=== PATIENT | male | born 1970 | race Caucasian/White ===

== ENCOUNTER → 2018-02-12 12:34 | Outpatient (CLI) | payer BC, SELFPAY ==
--- NOTE | 2018-02-12 12:45 | DI.REPORT_ITS ---
SYMPTOMS/DIAGNOSIS: FATIGUE, COUGH AFTER INHALATION OF BLEACH, R53.83, T59.91XA PA AND LATERAL CHEST: The heart is normal in size. The lungs are clear. The mediastinal structures and pleura appear intact. CONCLUSION: Normal chest.
== END ==
PROVIDERS: PCP Family Medicine; Visit Provider Family Medicine
DX: R53.83 Other fatigue (principal); T59.91XA Toxic effect of unspecified gases, fumes and vapors, accidental (unintentional), initial encounter; R05 Cough
CPT/HCPCS: 71046

== ENCOUNTER 2018-12-01 00:24 | Emergency (ER) | payer BC, SELFPAY ==
[2018-12-01] VITALS (14 sets, daily range): BP systolic 120–127; BP diastolic 69–87; PULSE 60–76; RESP 13–24; TEMP 36.4–36.5; O2SAT 96–100
--- NOTE | 2018-12-01 00:31 | ED.GENADUL_ITS ---
Discharge Plan Disposition Patient Disposition: HOME Condition: Improving Discharge Details Chief Complaint: AMS/LOC Clinical Impression: Migraines Primary Care Provider: Ebenezer Rodríguez ED Provider: Lamine Hernandez Home Meds and New Rx's Prescriptions: Continued albuterol sulfate [Ventolin HFA] 90 mcg/actuation HFA aerosol inhaler 1 - 2 puff IH Q4H PRN (Reason: shortness of breath or wheezing) Qty: 8.5 RF: 0 nortriptyline 25 mg capsule 25 mg PO TID Qty: 270 RF: 0 meclizine 25 MG tablet 25 mg PO TID PRNQty: 30 RF: 0 polymyxin B sulf-trimethoprim 10 ML drops 2 drp Ophthalmic Q4H PRN Qty: 10 RF: 0 multivitamin 1 EACH tablet 1 tab PO DAILY RF: 0 cholecalciferol (vitamin D3) [Vitamin D3] 1,000 UNIT capsule 2 cap PO DAILY RF: 0 Discharge Instructions Additional Instructions: Home to rest. Continue small, frequent sips of fluids to maintain hydration. You may benefit from sleeping with the head of the bed elevated 2-3 pillows tonight and tomorrow as this can improve vertiginous symptoms. Return for recurrent headache, fever, or any other acute concern. Medical Decision Making 48-year-old male brought from home by EMS. His states that he felt lightheaded and nauseated at bedtime. She states approximately 11 PM he got out of bed and fell onto his right shoulder. Since that time he has had a headache with photophobia, complains of right shoulder pain. EMS was called, pt with subsequent transport to ED. he arrives complaining of right shoulder pain, headache, nausea that is worse with movement of the head. Patient is afebrile with normal vital signs. Affect is variable and bizarre at times. Differential diagnosis considered is broad and includes migraine, vertigo, must exclude intracranial mass or hemorrhage, as well as traumatic bony injury to the right upper extremity. Patient referred for laboratory testing, CT scan of the head, plain radiographs. He is given IV fluid, antiemetic, an algesic. CT head without acute intracranial findings. X-rays without underlying bony injury. Labs do reveal an elevated TSH, but reflex free T4 is within normal limits. Remainder of diagnostic studies are notable for mild elevation of the BUN, mild concentration of the urine, discrete anion gap of 12. Following 2 L of fluid, parenteral medications, patient improved. Tolerating po and subjectively better. He has a contusion of R humerus and may use a sling for comfort. Given patients history of vertigo as well as migraine, todays presentation seems most consistent with same and dehydration. He is tolerating liquids and requests DC to home. ECG Data Attestation: I personally reviewed and interpreted this ECG (s) as follows: Interpretation: NSR, rate 72, no st segment elevation HPI General Mode of arrival: EMS . Date/Time Provider Initiated Documentation: 12/01/18 00:34 . Limitations to Documentation: altered mental status . Information obtained by: patient, family and EMS . History of Present Illness 48 year old M presents to the emergency department with the chief complaint of Altered mental status., described as moderate, Quality is described as constant, Patient started experiencing this hour(s) and it has been constant. No relieving factors improve symptom(s), No exacerbating factors reported . Patient did receive the following treatments prior to arrival, none Related Data Home Medications Medication Instructions Recorded Confirmed meclizine 25 mg PO TID PRN #30 tab-cap 10/04/14 10/13/18 cholecalciferol (vitamin D3) 2 cap PO DAILY 09/09/15 10/13/18 [Vitamin D3] multivitamin 1 tab PO DAILY 09/09/15 10/13/18 polymyxin B sulf-trimethoprim 2 drp OPHTHALMIC Q4H PRN #10 ml 07/11/17 10/13/18 albuterol sulfate HFA 90 1 - 2 puff IH Q4H PRN #8.5 gm 07/28/18 10/13/18 mcg/actuation aerosol inhaler nortriptyline 25 mg capsule 25 mg PO TID #270 cap 10/13/18 Previous Rx's Medication Instructions Recorded polymyxin B sulf-trimethoprim 2 drp OPHTHALMIC Q4H PRN #10 ml 07/11/17 albuterol sulfate HFA 90 1 - 2 puff IH Q4H PRN #8.5 gm 07/28/18 mcg/actuation aerosol inhaler nortriptyline 25 mg capsule 25 mg PO TID #270 cap 10/13/18 Allergies Allergy/AdvReac Type Severity Reaction Status Date / Time erythromycin base AdvReac Intermediate Vomiting Unverified 12/01/18 02:39 [Erythromycin Base] cigarette smoke Allergy Uncoded 12/01/18 02:39 Review of Systems Review of Systems Patient complains of right shoulder pain. Complains of nausea it is worse with movement of the head. History of vertigo in the past. Review of systems limited by patient's participation in history giving. 4 systems are reviewed and otherwise neg [facility] Family History Mother No problems noted. Father Diabetes Melanoma Sister Multiple sclerosis Brother Asthma Maternal Grandfather Alcohol abuse Cancer Paternal Grandfather Tuberculosis Maternal Grandmother Alcohol abuse Asthma Cancer Paternal Grandmother Cancer Son Asthma Daughter No problems noted. Social History Smoking/Tobacco Use Status: Former Tobacco Use Tobacco: How many years used: 10 Alcohol Intake: former Drug use: Never Substance use type: former substance user Caregiver/Support person: No Household members: family Communication Needs: None Pets and animals: Yes Pets and animals: dog(s) Sexually active: Yes Do you think of yourself as: straight/heterosexual Current gender identity: male What is your relationship status?: How often do you talk on the phone with friends or family?: once per week How often do you get together with friends or relatives?: once per week How often do you attend hindu or roman catholic services?: decline to answer Do you belong to any clubs or organized social groups?: no Panel score (0-1 are the most socially isolated patients): 1 What type of physical activity do you participate in: walking and weight li fting Duration: 15-30 minutes/day Frequency: 1-2 times per week Ilda/Church: None Special ilda needs: No Seatbelt use: always Helmet use: Yes Helmet use: sometimes Drive intox or ride w/intox horse and wagon driver: No Do you feel safe in your relationship?: Yes Exam Narrative Exam Narrative: GEN: awake, alert, responds to voice. HEAD: Normocephalic, atraumatic ENT: Mucous membranes moist, oropharynx unremarkable, External ear exam unremarkable EYES: PERRL, EOMI NECK: Full ROM, no KRISTAL, no menigismus CHEST/RESP: Nontender, clear to auscultation bilateral, no wheeze/rhonchi/rales CARDIOVASCULAR: RRR, no murmur, rub ruth. 2+ Rad pulse bilateral ABDOMEN: Soft, nontender, no mass. +Bowel sounds EXT: Full ROM, no edema, no rash. Right proximal humerus with small area of ecchymosis over lateral deltoid region. Tender to palpation Neuro: Responds to commands. Moves all 4 extremities. Intermittently responsive with nurses.. Psych: Affect bizarre at times
[2018-12-01] MEDS: Ondansetron 4 MG/2 ML VIAL IVP (00:39)
[2018-12-01] MEDS: LORazepam 2 MG/ML VIAL 0.5 MG IVP (00:40)
[2018-12-01] MEDS: Normal Saline 1,000 ML 1000 ML IV ×2 (00:40→01:49)
[2018-12-01 00:53] LABS: Abs Immature Grans 0.02 k/cumm (0.0-0.09); Absolute Basophil Count 0.03 k/cumm (0.0-0.2); Absolute Eosinophil Count 0.07 k/cumm (0.0-0.7); Absolute Lymphocyte Count 3.75 k/cumm (1.2-3.4); Absolute Monocyte Count 0.93 k/cumm (0.11-0.7); Absolute Neutrophil Count 3.45 k/cumm (1.2-6.7); Basophils % 0.4; Eosinophils % 0.8; HGB 14.1 g/dL (13.5-17.5); Immature Grans % 0.2; Lymphocytes % 45.5; Mean Corp. HGB Concentration 33.6 g/dL (32.0-36.0); Mean Corpuscular Hemoglobin 29.5 pg (27.0-33.0); Mean Corpuscular Volume 87.9 fL (80-95); Mean Platelet Volume 9.4 fL (8.0-11.0); Monocytes % 11.3; Neutrophils % 41.8; Platelet Count 240 x1000/uL (130-400); RBC 4.78 m/cumm (4.50-6.00); RBC Distribution Width 13.2 % (11.8-14.1); White Blood Cell Count 8.25 k/cumm (4.4-10.8)
--- NOTE | 2018-12-01 00:55 | DI.CT_ITS ---
SYMPTOM/DIAGNOSIS: FELL AT HOME, ALTERED MENTAL STATUS, H/O MIGRAINE NONCONTRAST HEAD CT: Comparison is made with 02/04/14. No intracranial hemorrhage, mass or infarct is seen. The ventricles are normal in size. The sinuses and mastoid air cells appear clear. The orbits are unremarkable. IMPRESSION: Negative head CT. t
[2018-12-01 00:58] LABS: Ammonia < 10 umol/L (11-32)
[2018-12-01] MEDS: Ondansetron 4 MG/2 ML VIAL (01:00)
--- NOTE | 2018-12-01 01:01 | DI.VRAD_ITS ---
EXAM: CT Head Without Contrast EXAM DATE/TIME: 12/01/2018 12:30 AM CLINICAL HISTORY: 48 years old, male; Signs and symptoms; Altered mental status/memory loss; Confusion or disorientation; Patient HX: AMS TECHNIQUE: Imaging protocol: Axial computed tomography images of the head without contrast. Coronal and sagittal reformatted images were created and reviewed. Radiation optimization: All CT scans at this facility use at least one of these dose optimization techniques: automated exposure control; mA and/or kV adjustment per patient size (includes targeted exams where dose is matched to clinical indication); or iterative reconstruction. Other technique: STROKE PROTOCOL was implemented. COMPARISON: CT HEAD WITHOUT CONTRAST 02/03/2014 5:36 PM FINDINGS: Brain: Mild volume loss. No hemorrhage. Unremarkable white matter. No mass effect. Ventricles: Normal. No ventriculomegaly. Bones/joints: Unremarkable. No acute fracture. Sinuses: Visualized sinuses are unremarkable. No fluid levels. Mastoid air cells: Visualized mastoid air cells are well aerated. No mastoid effusion. Soft tissues: Unremarkable. IMPRESSION: No acute intracranial abnormality. ASSESSMENT: ASPECTS ([place] Stroke Program Early CT Score) is 10. Dictated and Authenticated by: Jovani Rivera MD. Ordering:DIANNE Raman MD
[2018-12-01 01:13] LABS: ALT 46 U/L (12-78); AST 24 U/L (15-37); Albumin 3.9 g/dL (3.4-5.0); Alkaline Phosphatase 74 U/L (46-116); Anion Gap 12.5 mmol/L (3-11); BUN 24 mg/dL (7-18); Bilirubin, Total 0.3 mg/dL (0.2-1.0); CO2 25.5 mmol/L (21.0-32.0); CREATININE 1.07 mg/dL (0.70-1.30); Calcium 9.5 mg/dL (8.5-10.1); Chloride 105 mmol/L (98-107); Glucose 99 mg/dL (70-100); Potassium 3.7 mmol/L (3.5-5.1); Sodium 143 mmol/L (136-145); Total Protein 7.6 g/dL (6.4-8.2)
--- NOTE | 2018-12-01 01:20 | DI.RAD_ITS ---
SYMPTOM/DIAGNOSIS: FALL AT HOME, RT SHOULDER PAIN PA AND LATERAL CHEST: Comparison is made with 12 February 2018. The cardiac and mediastinal contours have a normal appearance. The lungs are well inflated and clear. No infiltrate, effusion or pneumothorax is seen. IMPRESSION: Negative chest x-ray.
--- NOTE | 2018-12-01 01:20 | DI.RAD_ITS ---
SYMPTOMS/DIAGNOSIS: FALL AT HOME, RT SHOULDER PAIN RIGHT SHOULDER: No fracture or dislocation is seen. There are mild degenerative changes of the AC joint and moderate degenerative changes of the glenohumeral joint. No rib fractures are visible. IMPRESSION: Degenerative changes. No acute abnormality.
[2018-12-01 01:21] LABS: TSH 22.31 uIU/mL (0.358-3.74)
[2018-12-01 01:26] LABS: Troponin I < 0.02 ng/mL (0.00-0.06)
--- NOTE | 2018-12-01 01:28 | DI.VRAD_ITS ---
EXAM: XR Chest, 2 Views EXAM DATE/TIME: 12/01/2018 12:49 AM CLINICAL HISTORY: 48 years old, male; Signs and symptoms; Patient HX: AMS, headache TECHNIQUE: Imaging protocol: XR of the chest, 2 views. COMPARISON: CR CHEST 2 VIEWS PA,LAT 02/12/2018 12:36 PM FINDINGS: Lungs: Mild chronic interstitial prominence. No consolidation. Pleural space: Unremarkable. No pleural effusion. No pneumothorax. Heart/Mediastinum: Unremarkable. No cardiomegaly. Bones/joints: Unremarkable. IMPRESSION: No acute findings. Dictated and Authenticated by: Jovani Rivera MD. Ordering:DIANNE Raman MD
[2018-12-01] MEDS: Ketorolac 30 MG/ML VIAL IVP (01:29)
--- NOTE | 2018-12-01 01:29 | DI.VRAD_ITS ---
EXAM: XR Right Shoulder EXAM DATE/TIME: 12/01/2018 12:40 AM CLINICAL HISTORY: 48 years old, male; Injury or trauma; Initial encounter; Blunt trauma (contusions or hematomas; Shoulder and arm, upper; Right; Injury date: 12/01/18; Injury details: Fall, AMS; Patient HX: Fall and landed on shoulder TECHNIQUE: Imaging protocol: XR Right shoulder. Views: 2 or more views. COMPARISON: CR RIGHT SHOULDER COMPLETE 01/21/2012 10:57 AM FINDINGS: Bones/joints: Mild degenerative changes in the right shoulder. No acute fracture or dislocation Soft tissues: Normal. IMPRESSION: No acute findings. Dictated and Authenticated by: Jovani Rivera MD. Ordering:DIANNE Raman MD
[2018-12-01] MEDS: Meclizine 25 MG TAB PO (01:32)
[2018-12-01 01:36] LABS: ETHANOL BLOOD < 3.0 mg/dL (<3)
[2018-12-01 01:54] LABS: Bilirubin Negative (Negative); Blood Small (Negative); Clarity Clear; Glucose Negative (Negative); Ketones Negative (Negative); Leukocyte Esterase Negative (Negative); Nitrite Negative (Negative); Urobilinogen 0.2 EU/dL (Up TO 0.2); pH 7.5 (5-8)
[2018-12-01 01:57] LABS: *AMPHETAMINES SCREEN URINE Negative (Negative); *BARBITURATES SCREEN URINE Negative (Negative); *BENZODIAZEPINES SCREEN URINE Negative (Negative); Cannabinoids THC Negative (Negative); Cocaine Screen,Urine Negative (Negative); METHADONE URINE SCREEN Negative (Negative); OPIATES URINE SCREEN Negative (Negative)
[2018-12-01 01:58] LABS: Tricyclic Antidepressants Negative (Negative)
[2018-12-01 02:01] LABS: FREE T4 0.94 ng/dL (0.76-1.46)
[2018-12-01 02:05] LABS: Bacteria Negative HPF (Negative); C & S Indicated? No; Crystals Negative HPF (Negative); Epithelial Cells Negative HPF (Negative); Mucus Negative (Negative); RBC 0-2 (0-2); WBC 0-2 HPF (0-5)
== END 2018-12-01 02:51 | disposition home or self-care (01) ==
LOC: ER 02:54
PROVIDERS: Emergency Provider Emergency Medicine; PCP Family Medicine
DX: G43.909 Migraine, unspecified, not intractable, without status migrainosus (principal)
CPT/HCPCS: 36415; 80053; 80307; 96361; 96374; 96375; 96376; 99284; 70450; 71046; 73030; 80320; 81003; 81015; 82140; 83735; 84439; 84443; 84484; 85025; J1885; J2060; J2405; L3650

== ENCOUNTER 2018-12-03 00:39 | Outpatient (CLI) | payer BC, SELFPAY ==
--- NOTE | 2018-12-03 09:51 | DI.MRI_ITS ---
SYMPTOMS/DIAGNOSIS: CONFUSION STATE SYNCOPE, F05, DELIRIUM DUE TO PHYSICAL CONDITION, R55 SYNCOPE AND COLLAPSE MRA OF THE BRAIN: Axial time of flight 3D pulse sequence was obtained. The [place] of [place] is intact. There is no evidence of an aneurysm or stenosis. The anterior, middle and posterior cerebral vessels as visualized appear intact.
== END 2018-12-03 00:59 ==
PROVIDERS: PCP Family Medicine; Visit Provider Family Medicine
DX: F05 Delirium due to known physiological condition (principal); R55 Syncope and collapse
CPT/HCPCS: 70544

== ENCOUNTER 2019-01-01 09:39 | Outpatient (CLI) | payer BC, SELFPAY ==
[2019-01-01 10:25] LABS: Hemoglobin A1C 5.6 % (4.5-6.2)
[2019-01-01 10:50] LABS: ESR 10 MM/HR (0-15)
[2019-01-01 11:03] LABS: ALT 45 U/L (12-78); AST 22 U/L (15-37); Albumin 3.8 g/dL (3.4-5.0); Alkaline Phosphatase 68 U/L (46-116); Anion Gap 8.7 mmol/L (3-11); BUN 15 mg/dL (7-18); Bilirubin, Total 0.4 mg/dL (0.2-1.0); C-Reactive Protein 0.05 mg/dL (0.0-0.3); CO2 27.3 mmol/L (21.0-32.0); CREATININE 0.88 mg/dL (0.70-1.30); Chloride 105 mmol/L (98-107); Glucose 101 mg/dL (70-100); Potassium 4.3 mmol/L (3.5-5.1); Sodium 141 mmol/L (136-145); TSH 1.36 uIU/mL (0.358-3.74); Total Protein 7.3 g/dL (6.4-8.2)
[2019-01-01 11:23] LABS: Vitamin B12 288 pg/mL (193-986)
[2019-01-01 11:32] LABS: C-Reactive Protein 0.07 mg/dL (0.0-0.3)
[2019-01-02 12:45] LABS: Albumin 61.3 % (55.8-66.1); Total Protein 7.1 g/dl (6.3-8.2)
== END 2019-01-01 09:59 ==
PROVIDERS: PCP Family Medicine; Visit Provider Nurse Practitioner Adult Health
DX: F32.9 Major depressive disorder, single episode, unspecified (principal); N20.9 Urinary calculus, unspecified; Z00.00 Encounter for general adult medical examination without abnormal findings; E03.9 Hypothyroidism, unspecified; G62.9 Polyneuropathy, unspecified
CPT/HCPCS: 36415; 80053; 85652; 82607; 83036; 84165; 84443; 86140

== ENCOUNTER 2019-01-12 09:13 | Outpatient (CLI) | payer BC, SELFPAY | END 2019-01-12 09:33 | PROVIDERS: PCP Family Medicine; Visit Provider Family Medicine | DX: E03.9 Hypothyroidism, unspecified (principal) | CPT/HCPCS: 36415; 84443 ==

== ENCOUNTER 2019-01-14 01:04 | Outpatient (CLI) | payer BC, SELFPAY ==
--- NOTE | 2019-01-14 07:43 | MERGE_ITS ---
*[facility]* *[facility]* [address] [place] [address] Date of study: 01/14/2019 Transthoracic Echocardiography M-mode, complete 2D, complete spectral Doppler, and color Doppler *STUDY CONCLUSIONS* Summary: 1. Left ventricle: The cavity size was normal. Wall thickness was normal. Systolic function was normal. The estimated ejection fraction was 60-65%. Wall motion was normal; there were no regional wall motion abnormalities. 2. Mitral valve: Mildly thickened leaflets anterior. There was mild regurgitation. 3. Right ventricle: The cavity size was normal. Wall thickness was normal. Systolic function was normal. *PATIENT PRESENTATION* Height: 185.4cm (73in ) S/D Pressure: 105 / 72 Weight: 86.2kg (189.6lb ) BSA: 2.11m^2 Test start time: 07:50 AM. Test stop time: 08:45 AM. PERFORMING Unknown PERFORMING [facility] REGIONAL BUSINESS DEVELOPMENT MANAGER RT Ragini (Victorina)(CT), RDCS CONSULTING Ebenezer Rodríguez ORDERING Ebenezer Rodríguez REFERRING Ebenezer Rodríguez *PROCEDURE DATA* Procedure information: This study was interpreted by [facility]. Pertinent images and digital data are archived for permanent storage and are available for subsequent review. No prior study was available for comparison. Study status: Routine. Transthoracic echocardiography. M-mode, complete 2D, complete spectral Doppler, and color Doppler. A Transthoracic Echocardiogram was performed. Scanning was performed from the parasternal, apical, subcostal, and suprasternal notch acoustic windows. Images were obtained using an [id number] cardiac ultrasound machine. Image quality was adequate. Study completion: The patient tolerated the procedure well. There were no complications. History: PMH: Syncope and collapse r55. *CARDIAC ANATOMY* Left ventricle: The cavity size was normal. Wall thickness was normal. Systolic function was normal. The estimated ejection fraction was 60-65%. Wall motion was normal; there were no regional wall motion abnormalities. Diastolic parameters were normal. Aortic valve: Trileaflet; normal thickness leaflets. Mobility was not restricted. Doppler: Transvalvular velocity was within the normal range. There was no stenosis. There was no significant regurgitation. VTI ratio of LVOT to aortic valve: 0.75. Valve area (VTI): 2.5cm^2. Indexed valve area (VTI): 1.2cm^2/m^2. Peak velocity ratio of LVOT to aortic valve: 0.78. Valve area (Vmax): 2.7cm^2. Indexed valve area (Vmax): 1.3cm^2/m^2. Mean velocity ratio of LVOT to aortic valve: 0.75. Valve area (Vmean): 2.5cm^2. Indexed valve area (Vmean): 1.2cm^2/m^2. Mean gradient (S): 3.9mm Hg. Peak gradient (S): 6.3mm Hg. Aorta: Aortic root: The aortic root was normal in size. Mitral valve: Mildly thickened leaflets anterior. Mobility was not restricted. Doppler: Transvalvular velocity was within the normal range. There was no evidence for stenosis. There was mild regurgitation. Valve area by pressure half-time: 3.1cm^2. Indexed valve area by pressure half-time: 1.5cm^2/m^2. Left atrium: The atrium was normal in size. Right ventricle: The cavity size was normal. Wall thickness was normal. Systolic function was normal. Pulmonic valve: Structurally normal valve. Doppler: Transvalvular velocity was within the normal range. There was no evidence for stenosis. There was trivial regurgitation. Peak gradient (S): 2.8mm Hg. Tricuspid valve: Structurally normal valve. Doppler: Transvalvular velocity was within the normal range. There was no evidence for stenosis. There was trivial regurgitation. Pulmonary artery: Pulmonary systolic pressure was within the normal range, in the range of 25mm Hg to 30mm Hg. Right atrium: The atrium was normal in size. Pericardium: There was no pericardial effusion. Systemic veins: Inferior vena cava: Well visualized. The vessel was patent and normal in size. The respirophasic diameter changes were in the normal range (greater than or equal to 50%). Baseline ECG: Normal sinus rhythm. Measurements Left ventricle Value Reference LV ID, ED, PLAX 4.6 cm 3.5 - 6.0 LV ID, ES, PLAX 3.3 cm 2.1 - 4.0 LV PW thickness, ED, PLAX 1.0 cm LV end-diastolic volume, 1-p A2C 106 ml LV ejection fraction, 1-p A2C 64 % LV end-diastolic volume, 1-p A4C 107 ml LV ejection fraction, 1-p A4C 65 % LV e', lateral 0.136 m/sec LV E/e', lateral 5 LV e', medial 0.088 m/sec LV E/e', medial 7 LV e', average 0.112 m/sec LV E/e', average 6 Ventricular septum Value Reference IVS thickness, ED, PLAX 1.0 cm LVOT Value Reference LVOT ID, A-P 2.1 cm LVOT area 3.4 cm^2 LVOT peak velocity, S 0.97 m/sec LVOT mean velocity, S 0.71 m/sec LVOT VTI, S 19.5 cm LVOT peak gradient, S 3.8 mm Hg LVOT mean gradient, S 2.3 mm Hg Stroke volume (SV), LVOT DP 66 ml Stroke index (SV/bsa), LVOT DP 31 ml/m^2 Aortic valve Value Reference Aortic valve peak velocity, S 1.3 m/sec Aortic valve mean velocity, S 0.9 m/sec Aortic valve VTI, S 26.0 cm Aortic mean gradient, S 3.9 mm Hg Aortic peak gradient, S 6.3 mm Hg VTI ratio, LVOT/AV 0.75 Aortic valve area, VTI 2.5 cm^2 Velocity ratio, peak, LVOT/AV 0.78 Aortic valve area, peak velocity 2.7 cm^2 Velocity ratio, mean, LVOT/AV 0.75 Aortic valve area, mean velocity 2.5 cm^2 Aortic valve area/bsa, mean velocity 1.2 cm^2/m^2 Aorta Value Reference Aortic root ID, ED 2.9 cm Ascending aorta ID, A-P, S 2.9 cm Left atrium Value Reference LA ID, A-P, ES 2.7 cm LA ID/bsa, A-P 1.3 cm/m^2 <=2.2 LA volume/bsa, ES, 1-p A4C 18 ml/m^2 LA volume, ES, 2-p 34 ml LA volume/bsa, ES, 2-p 16 ml/m^2 LA/aortic root ratio 0.93 Mitral valve Value Reference Mitral E-wave peak velocity 0.63 m/sec Mitral A-wave peak velocity 0.48 m/sec Mitral deceleration time (H) 242 ms 150 - 230 Mitral pressure half-time 70 ms Mitral E/A ratio, peak 1.31 Mitral valve area, PHT, DP 3.1 cm^2 Pulmonary veins Value Reference Pulmonary vein peak velocity, S 0.57 m/sec Pulmonary vein peak velocity, D 0.43 m/sec Pulmonary vein velocity ratio, peak, 1.33 S/D Pulmonary vein A-wave reversal peak 0.35 m/sec velocity Pulmonary vein A-wave reversal 188 ms duration Tricuspid valve Value Reference Tricuspid regurg peak velocity 2.2 m/sec Tricuspid peak RV-RA gradient 19.9 mm Hg Right atrium Value Reference RA area, ES, A4C 15.3 cm^2 8.3 - 19.5 Pulmonic valve Value Reference Pulmonic peak gradient, S 2.8 mm Hg Legend: (L) and (H) kwan values outside specified reference range. I have personally reviewed the images and have reviewed and edited the reported findings. Electronically signed by Stefano Andres 01/14/2019 09:26
== END 2019-01-14 01:24 ==
PROVIDERS: PCP Family Medicine; Visit Provider Family Medicine
DX: R55 Syncope and collapse (principal); I34.8 Other nonrheumatic mitral valve disorders
CPT/HCPCS: 93306

== ENCOUNTER 2019-08-14 08:54 | Outpatient (CLI) | payer BC, SELFPAY ==
[2019-08-14 10:50] LABS: HCT 43.3 % (40.0-50.0); HGB 14.6 g/dL (13.5-17.5); Mean Corp. HGB Concentration 33.7 g/dL (32.0-36.0); Mean Corpuscular Hemoglobin 29.9 pg (27.0-33.0); Mean Corpuscular Volume 88.7 fL (80-95); Mean Platelet Volume 9.5 fL (8.0-11.0); Platelet Count 250 x1000/uL (130-400); RBC 4.88 m/cumm (4.50-6.00); RBC Distribution Width 13.1 % (11.8-14.1); White Blood Cell Count 5.85 k/cumm (4.4-10.8)
[2019-08-14 10:54] LABS: Anion Gap 10.8 mmol/L (3-11); BUN 26 mg/dL (7-18); CO2 25.2 mmol/L (21.0-32.0); CREATININE 0.98 mg/dL (0.70-1.30); Chloride 105 mmol/L (98-107); Glucose 104 mg/dL (74-106); Potassium 4.2 mmol/L (3.5-5.1); Sodium 141 mmol/L (136-145)
== END 2019-08-14 09:14 ==
PROVIDERS: PCP Family Medicine; Visit Provider Nurse Practitioner
DX: R10.9 Unspecified abdominal pain (principal)
CPT/HCPCS: 36415; 80048; 85027

== ENCOUNTER 2019-08-14 15:18 | Outpatient (CLI) | payer BC, SELFPAY ==
--- NOTE | 2019-08-14 15:30 | DI.CT_ITS ---
EXAM: CT ABDOMEN PELVIS WO/W CLINICAL HISTORY: r/o renal calculi left vs diverticulitis, abd pain, R10.9 TECHNIQUE: Before and after IV contrast. Oral contrast was administered. COMPARISON: RENAL COLIC WO CONTRAST from 08/23/2016 FINDINGS: No renal, ureteral or bladder calculi are seen. There is normal bilateral renal enhancement. There are few small renal cysts. There is no evidence of hydronephrosis, mass or perinephric collection. There are no findings to suggest pyelonephritis. The prostate appears normal in size. There is mil d diffuse bladder wall thickening. The bladder is moderately distended. The heart size is normal. The lung bases are clear. The liver, gallbladder, spleen, pancreas, adren als and aorta are unremarkable. A small amount of fat in the inguinal canals. There is a small fatt y containing umbilical hernia. There are few scattered diverticula in the lower descending and sigmo id colon but no evidence of diverticulitis. The appendix appears normal. No small bowel dilatation or wall thickening is seen. There is no free air or free fluid or evidence of adenopathy. The bones are unremarkable. IMPRESSION: Mild diffuse wall thickening of the urinary bladder. This could indicate cystitis. There is no evid ence of urinary tract calculi or hydronephrosis.
[2019-08-14] MEDS: Omnipaque 350 MG/ML 100 ML BTL IV (15:31)
== END 2019-08-14 15:38 ==
PROVIDERS: PCP Family Medicine; Visit Provider Nurse Practitioner
DX: N32.89 Other specified disorders of bladder (principal); R10.9 Unspecified abdominal pain; N28.1 Cyst of kidney, acquired; K42.9 Umbilical hernia without obstruction or gangrene
CPT/HCPCS: 74178; J3490

== ENCOUNTER 2019-11-05 09:21 | Emergency (ER) | payer BC, SELFPAY ==
[2019-11-05] VITALS (35 sets, daily range): BP systolic 115–131; BP diastolic 62–88; PULSE 51–83; RESP 12–18; TEMP 36.5–36.8; O2SAT 98–100
[2019-11-05] MEDS: Normal Saline 1,000 ML 1000 ML IV (09:30)
--- NOTE | 2019-11-05 09:30 | DI.CT_ITS ---
EXAM: CT ABDOMEN PELVIS W CLINICAL HISTORY: abdominal pain, r/o diverticulitis TECHNIQUE: Imaging Protocol: Axial computed tomography images with coronal and sagittal reformatted images were created and reviewed CONTRAST MATERIAL: Intravenous: Omnipaque 350 Contrast volume:100 mL Oral: No COMPARISON: CT CT ABDOMEN PELVIS WO/W from 08/14/2019 FINDINGS: ABDOMEN: Lung Bases: Normal where visualized. Liver: Normal density. No measurable mass. Portal, Superior Mesenteric, and Splenic Veins: Unremarkable. Gallbladder and Biliary Tract: No radiodense calculus or dilation. Pancreas: Normal density, no abnormal calcifications or inflammatory process. Spleen: Normal. Adrenals: No masses seen. Kidneys: Normal size, contour and axis. There is a 7 mm left UVJ stone causing mild hydronephrosis. No masses seen. Abdominal Aorta: Abdominal portion non-dilated. Bowel: No obstruction or bowel wall thickening. Appendix is unremarkable. Colonic diverticulosis but no evidence of acute diverticulitis. Peritoneal Cavity: No ascites, collection or mesenteric inflammatory response. Lymph Nodes: Within normal limits. Bones: Unremarkable. Soft Tissues: Unremarkable. PELVIS: Bladder: Symmetric distention, no gross wall thickening. Reproductive Organs: Unremarkable as visualized. Lymph Nodes: Within normal limits. Bones: Within normal limits. IMPRESSION: 1. 7 mm left UVJ stone causing mild hydronephrosis. 2. Colonic diverticulosis but no evidence of acute diverticulitis. 3. These findings were discussed with the emergency department on the date of the examination. RADIATION DOSE DELIVERED: 1,122.11mGy.cm Total DLP DATA REPOSITORY: All CT scans at this facility are submitted to the National Radiology Data Registry (NRDR) Dose Index Registry (DIR) with the [employer] (ACR). RADIATION OPTIMIZATION: All CT scans at this facility use at least one of these dose optimization te chniques: automated exposure control; mA and/or kV adjustment per patient size (includes targeted exa ms where dose is matched to clinical indication); or iterative reconstruction.
[2019-11-05] MEDS: Ondansetron 4 MG/2 ML VIAL IVP (09:44)
[2019-11-05] MEDS: ACETAMINOPHEN 1,000 MG/100 ML BTL 400 MG IVPB (09:45)
[2019-11-05 09:46] LABS: Abs Immature Grans 0.02 k/cumm (0.0-0.09); Absolute Basophil Count 0.01 k/cumm (0.0-0.2); Absolute Eosinophil Count 0.06 k/cumm (0.0-0.7); Absolute Lymphocyte Count 2.05 k/cumm (1.2-3.4); Absolute Monocyte Count 0.86 k/cumm (0.11-0.7); Basophils % 0.1; Eosinophils % 0.5; HCT 43.7 % (40.0-50.0); Immature Grans % 0.2 %; Lymphocytes % 17.1; Mean Corp. HGB Concentration 34.3 g/dL (32.0-36.0); Mean Corpuscular Hemoglobin 30.1 pg (27.0-33.0); Mean Corpuscular Volume 87.8 fL (80-95); Mean Platelet Volume 9.2 fL (8.0-11.0); Monocytes % 7.2; Neutrophils % 74.9; Platelet Count 258 x1000/uL (130-400); RBC 4.98 m/cumm (4.50-6.00); RBC Distribution Width 12.7 % (11.8-14.1); White Blood Cell Count 11.99 k/cumm (4.4-10.8)
[2019-11-05 09:49] LABS: Absolute Neutrophil Count 8.98 k/cumm (1.2-6.7)
--- NOTE | 2019-11-05 09:53 | ED.GENADUL_ITS ---
Discharge Plan Disposition Patient Disposition: HOME Condition: Stable Discharge Details Chief Complaint: Abd Prob Clinical Impression: Kidney stone on left side Primary Care Provider: Ebenezer Rodríguez ED Provider: Montserrat Snider Home Meds and New Rx's Prescriptions: New ibuprofen 800 mg tablet 800 mg PO Q6H PRNQty: 20 RF: 0 tamsulosin [Flomax] 0.4 mg capsule 0.4 mg PO DAILY Qty: 7 RF: 0 Continued nortriptyline 25 mg capsule 25 mg PO QHS Qty: 90 RF: 5 vitamin B complex [B Complex 1] Tablet 1 tab PO DAILY RF: 0 magnesium 250 mg tablet 1,000 mg PO DAILY RF: 0 Adult Probiotic 3 billion cell capsule 3,000 mmu cells PO DAILY RF: 0 albuterol sulfate [Ventolin HFA] 90 mcg/actuation HFA aerosol inhaler 2 puff IH Q6H PRN (Reason: shortness of breath or wheezing) Qty: 8.5 RF: 0 meclizine 25 MG tablet 25 mg PO TID PRNQty: 30 RF: 0 levothyroxine 50 mcg capsule 50 mcg PO DAILY Qty: 30 RF: 11 multivitamin 1 EACH tablet 1 tab PO DAILY RF: 0 cholecalciferol (vitamin D3) [Vitamin D3] 1,000 UNIT capsule 2 cap PO DAILY RF: 0 Discharge Instructions Instructions: Kidney Stones (ED) Additional Instructions: Drink plenty of fluids. Rest activities as tolerated. Use ibuprofen with Maalox as discussed. Please eat prior to taking this medication. May use Tylenol for discomfort if needed. Use Flomax as prescribed. Please follow-up with Dr. Roman for any persistence of pain or if not improving as discussed. Return to the emergency room for persistent pain, worsening symptoms, intolerable pain or any alarming symptoms if needed sooner as discussed Referrals: Barry Roman MD [ [facility] STAFF PHYSICIAN] - Medical Decision Making Is a 49-year-old patient presenting to the emergency room for complaints of abdominal pain. Patient reports he awoke at approximately 330 this morning with diffuse abdominal pain reports mild escalation of pain since onset. Associated with nausea. Denies headaches or dizziness, denies fevers or chills. Denies any chest pain, difficulty breathing or shortness of breath. Patient appears uncomfortable. Presents with normal vital signs. Patient describes diffuse abdominal pain which is also noted on exam. Patient has no obvious abdominal distention on exam. Patient is complaining of referred pain into his testicles bilaterally. Patient reports similar particular pain in the past. On exam patient does have notable testicular tenderness bilaterally with no associated swelling, crepitus. No obvious inguinal lymphadenopathy. Patient denies difficulty urinating or pain with urination. Denies obvious hematuria. We will plan to check CT based on patient's complaints and initial exam. Will provide both nausea medication and IV fluid. Patient is recovered opiate addict and would prefer to avoid opiates in his management. We will begin with offer med for pain management. Patient agrees with this plan of care. Will check labs. Patient's medical history does include abdominal pain and pelvic pain for which he has had multiple imaging studies including 10 years ago bilateral testicular ultrasound was unremarkable for abnormalities. Dr. Dudley evaluated the patient. Does recommend bilateral testicular ultrasound based on his exam. He does note cremasteric reflex present bilaterally. Otherwise agrees with initial plan of diagnostics. CT reveals a 7 mm left UVJ stone present with mild hydronephrosis. No diverticulitis noted on CT scan. Ultrasound unremarkable for identifiable abnormality in scrotum bilaterally. We will give additional IV fluid. Patient had no significant relief with off her meds. Will trial Toradol Spoke with Dr. Roman regarding 7 mm stone noted on CT with hydro-associated. He does recommend addition of Flomax. He does request Covid testing if patient requires possible procedure for persistent pain related to stone in the next few days. Discussed pain management with patient. Pt initially denies any improvement after toradol, then 20 min later reported pain becoming more tolerable. Patient does report he has been clean for 26 years. Although he is hesitant to use pain medication he does feel it is needed at this time given his persistence of pain. Dr. Roman is population health coach over the weekend and will be available if patient is failing outpatient treatment. Discussed use of Ultram. Patient very hesitant to use this also there is interaction with nortriptyline. After shared decision making process patient would prefer to hold on narcotic pain medication and use ibuprofen orally. Patient feels comfortable discharge home at this time. Will obtain [place] testing in the tent. Will recommend hydration. Will provide strainer. The patient was stable and requested discharge. Prior to discharge, my usual and customary return precautions were reviewed with the patient - this included follow-up instructions and reasons to return to the Emergency Department if conditions worsens, does not improve as expected, or other new concerns arise. HPI General Date/Time Provider Initiated Documentation: 11/05/19 09:22 . HPI Narrative: Is a 49-year-old patient presenting to the emergency room for onset of abdominal pain which began at 330 this morning. Abdominal pain awoke patient from sleep. Patient reports mild nausea associated. A single episode of bilious dry heaving. Patient does report he took meclizine 1 hour prior to arrival for his nausea. Patient denies headache or dizziness. Denies fevers or chills. Denies difficulty breathing shortness of breath or wheezing. Patient does report a history of abdominal and pelvic pain complaints in the past. Patient does report approximately 1 to 2 months ago he was treated for acute diverticulitis based on CT findings with Flagyl and Cipro. Patient reports compliance with these medications for 2 weeks. Patient did report full resolution of his symptoms. Reports onset of his pain this morning which does remind him of pain he has experienced in the past but is somewhat different in the way of severity. Patient reports he awoke to 6 out of 10 pain is describing an 8 out of 10 pain at this time. Described as diffuse abdominal and pelvic pain. Denies any associated back pain. Denies bowel changes. He does report maintaining bowel movements, some loose stool noted this morning. Denies any blood in vomitus or bowel movements. Patient does report bilateral testicular pain without assoc iated swelling, dysuria, urgency or frequency. Patient does report perineal pain in the past and specifically does report radiating pain into his testicles in the past. He did have ultrasound of his testicles approximately 10 years ago which was unremarkable. Patient again reports this is similar to how he has experienced testicular pain in the past however slightly more severe. Denies hematuria. Denies penile discharge. Patient denies any extremity complaints. No numbness, tingling or weakness. Patient was eating and drinking well yesterday. Activities are normal. Energy normal. Denies any obvious covert exposures. Again denies difficulty breathing, fever, chills, shortness of breath chest or back pain. Related Data Home Medications Medication Instructions Recorded Confirmed meclizine 25 mg PO TID PRN #30 tab-cap 10/04/14 11/05/19 cholecalciferol (vitamin D3) 2 cap PO DAILY 09/09/15 11/05/19 [Vitamin D3] multivitamin 1 tab PO DAILY 09/09/15 11/05/19 levothyroxine 50 mcg capsule 50 mcg PO DAILY #30 cap 12/03/18 11/05/19 magnesium 250 mg tablet 1,000 mg PO DAILY tab 02/23/19 11/05/19 vitamin B complex 1 tab PO DAILY 02/23/19 11/05/19 albuterol sulfate 90 mcg/actuation 2 puff IH Q6H PRN #8.5 gm 04/27/19 11/05/19 aerosol inhaler lactobacillus combination no.8 3 3,000 mmu cells PO DAILY 04/27/19 11/05/19 billion cell capsule nortriptyline 25 mg capsule 25 mg PO QHS #90 cap 10/19/19 11/05/19 ibuprofen 800 mg PO Q6H PRN #20 tab 11/05/19 tamsulosin [Flomax] 0.4 mg PO DAILY #7 cap 11/05/19 Previous Rx's Medication Instructions Recorded levothyroxine 50 mcg capsule 50 mcg PO DAILY #30 cap 12/03/18 albuterol sulfate 90 mcg/actuation 2 puff IH Q6H PRN #8.5 gm 04/27/19 aerosol inhaler nortriptyline 25 mg capsule 25 mg PO QHS #90 cap 10/19/19 ibuprofen 800 mg PO Q6H PRN #20 tab 11/05/19 tamsulosin [Flomax] 0.4 mg PO DAILY #7 cap 11/05/19 Allergies Allergy/AdvReac Type Severity Reaction Status Date / Time erythromycin base AdvReac Intermediate Vomiting Verified 11/05/19 09:35 [Erythromycin Base] cigarette smoke Allergy Uncoded 11/05/19 09:35 General Stated Complaint: Abd Prob YADY: 2 Review of Systems All systems reviewed & are unremarkable except as noted in HPI and below PFSH Medical History Depression (Chronic 09/03/17) Diverticulosis of colon without diverticulitis (Chronic) per colonoscopy 09/14/09-Dr. Mcdermott Fracture of lumbar spine (Acute) Gastroesophageal reflux disease (Chronic 06/29/13) History of narcotic addiction (Acute) does not want narcotics offered to him at any time Hypothyroid (Chronic) Hypothyroidism (Chronic) IBS (irritable bowel syndrome) (Chronic) Migraines (Chronic) Peripheral polyneuropathy (Acute) PTSD (post-traumatic stress disorder) (Chronic 09/03/17) TBI (traumatic brain injury) (Inactive) Family History (Updated 10/20/19 @ 13:17 by Jaquan Mazariegos) Mother No problems noted. Father Diabetes Melanoma Heart disease Hyperlipidemia Sister Multiple sclerosis Substance abuse Brother Asthma Alcohol abuse Substance abuse Maternal Grandfather , 70 Alcohol abuse Cancer Paternal Grandfather , in his 50s Tuberculosis Maternal Grandmother , 72 Alcohol abuse Asthma Cancer Paternal Grandmother Cancer Son Asthma Daughter Depression Anxiety Social History Smoking/Tobacco Use Status: Former Tobacco Use Tobacco: How many years used: 10 Second Hand Exposure: Yes Alcohol Intake: former Drug use: Current Sobriety Substance use type: former substance user Caregiver/Support person: No Household members: spouse and children Housing: house Communication Needs: None Do you need help understanding health information?: Never Pets and animals: Yes Pets and animals: dog(s) Sexually active: Yes Do you think of yourself as: straight/heterosexual Current gender identity: male What is your relationship status?: How often do you talk on the phone with friends or family?: once per week How often do you get together with friends or relatives?: once per week How often do you attend baptist or scientology services?: decline to answer Do you belong to any clubs or organized social groups?: no Panel score (0-1 are the most socially isolated patients): 1 What type of physical activity do you participate in: walking and other Details: PiYo Duration: < 15 minutes/day Frequency: 1-2 times per week Ilda/Druze: None Special ilda needs: No Seatbelt use: always Helmet use: Yes Helmet use: sometimes Drive intox or ride w/intox otr company truck 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 Exam Narrative Exam Narrative: CONST: Healthy appearing patient, in no acute distress. Well hydrated. Alert and oriented. HENMT: Head nomocephalic, normal to inspection. Atraumatic. Hearing grossly normal. External ear canal no erythema or swelling. TM normal bilaterally. Nose normal to inspection. No rhinnorhea. Normal facial exam. Oral mucosa normal. Tounge normal. Dentition normal. Normal posterior oropharynx. Uvula midline. EYES: General normal appearance. Alignment normal. Eyelids normal. Conjunctiva normal. Sclera normal. PERRL. NECK: Normal visual inspection. FROM. No lymphadenopathy. Trachea midline. No Midline tenderness. CHEST: Normal insepection of the chest. RESP: Normal respiratory effort. Speaking full sentences. No cough. No wheezing. No retractions. Clear to auscaltation. Breath sound equal and present bilaterally. CARDIO: No JVD. Normal PMI. Regular Rate. Regular Rhythm. Normal peripheral pulses. GI: Normal inspection of abdomen. No distension. Soft. Diffuse abdominal tenderness. Bowel sounds present in all 4 quadrants. no gaurding. : NO obvious testicular swelling bilaterally. No crepitance. No focal effusion. Diffuse bilateral testicular tenderness on exam. No erythema. No rash. No penile discharge present. no obvious inguinal lymphadenopathy MUSCULOSKELETAL: Normal Gait. FROM of all extremities. Distal neurovascularly intact. Sensation intact distally. SKIN: Normal. Dry. No rashes. NEURO: Alert and awake. Speech clear. PSYCH: Normal affect. Cooperative. Course Vital Signs Vital signs: Vital Signs Temperature 36.8 C 11/05/19 09:26 Pulse 66 11/05/19 09:26 Respiratory Rate 18 11/05/19 09:26 Blood Pressure 121/69 11/05/19 09:26 Pulse Oximetry 100 11/05/19 09:26 Temperature 36.8 C 11/05/19 09:26 Temperature Source Temporal Artery Scan 11/05/19 09:26 Pulse 55 L 11/05/19 09:31 Pulse 56 L 11/05/19 09:31 Respiratory Rate 14 11/05/19 09:31 Respiratory Effort Non-Labored 11/05/19 09:33 Blood Pressure 120/81 11/05/19 09:31 Blood Pressure Mean 89 11/05/19 09:31 Blood Pressure Position Supine 11/05/19 09:26 Pulse Oximetry 100 11/05/19 09:31 Oxygen Delivery Method Room Air 11/05/19 09:26 Oxygen Flow Rate 0 11/05/19 09:26 Pain Level 8 11/05/19 09:36 Lab/Test Results Lab/Test Results: 11/05/19 09:49 Urine - Clean Catch Urine Culture - Pending Laboratory Tests Range/Units 11/05/19 09:30 WBC (4.4-10.8) k/cumm 11.99 H RBC (4.50-6.00) m/cumm 4.98 Hgb (13.5-17.5) g/dL 15.0 Hct (40.0-50.0) % 43.7 MCV (80-95) fL 87.8 MCH (27.0-33.0) pg 30.1 MCHC (32.0-36.0) g/dL 34.3 RDW (11.8-14.1) % 12.7 Plt Count (130-400) x1000/uL 258 MPV (8.0-11.0) fL 9.2 Immature Gran % % 0.2 Neutrophils % 74.9 Lymphocytes % 17.1 Monocytes % 7.2 Eosinophils % 0.5 Basophils % 0.1 Absolute Neutrophils (1.2-6.7) k/cumm 8.98 H Absolute Lymphocytes (1.2-3.4) k/cumm 2.05 Absolute Monocytes (0.11-0.7) k/cumm 0.86 H Absolute Eosinophils (0.0-0.7) k/cumm 0.06 Absolute Basophils (0.0-0.2) k/cumm 0.01
[2019-11-05 10:00] LABS: Bilirubin Negative (Negative); Blood Large (Negative); Clarity Cloudy (Clear); Glucose Negative (Negative); Ketones 15 mg/dL (Negative); Leukocyte Esterase Negative (Negative); Nitrite Negative (Negative); Urobilinogen 0.2 EU/dL (Up TO 0.2); pH 8.5 (5-8)
[2019-11-05 10:03] LABS: ALT 54 U/L (16-63); AST 23 U/L (15-37); Albumin 4.2 g/dL (3.4-5.0); Alkaline Phosphatase 61 U/L (46-116); Anion Gap 9.2 mmol/L (3-11); BUN 20 mg/dL (7-18); Bilirubin, Total 0.8 mg/dL (0.2-1.0); CO2 25.8 mmol/L (21.0-32.0); CREATININE 1.34 mg/dL (0.70-1.30); Calcium 9.4 mg/dL (8.5-10.1); Chloride 104 mmol/L (98-107); Estimated GFR 56.89 (mL/min/1.73m2); Glucose 146 mg/dL (74-106); Lipase 78 U/L (73-393); Potassium 4.2 mmol/L (3.5-5.1); Sodium 139 mmol/L (136-145); Total Protein 8.4 g/dL (6.4-8.2)
[2019-11-05 10:10] LABS: Bacteria Few HPF (Negative); Crystals Negative HPF (Negative); Epithelial Cells Negative HPF (Negative); RBC >50 HPF (0-2); WBC 0-2 HPF (0-5)
[2019-11-05 10:11] LABS: C & S Indicated? C&S Done As Ordered; Casts Negative LPF (Negative); Mucus Negative (Negative)
[2019-11-05] MEDS: Omnipaque 350 MG/ML 100 ML BTL IJ (10:33)
[2019-11-05] MEDS: Normal Saline - Diluent 50 ML VIAL IV (10:33)
[2019-11-05] MEDS: Normal Saline Flush 10 ML SYR IVP (10:34)
[2019-11-05 10:35] LABS: Ammonia < 10 umol/L (11-32)
--- NOTE | 2019-11-05 11:10 | DI.US_ITS ---
EXAM: US SCROTUM CLINICAL HISTORY: bilateral testicular pain. TECHNIQUE: Scrotal ultrasound performed using grayscale, color-flow and spectral Doppler analysis. COMPARISON: No exams were available for comparison FINDINGS: Right testicle: 4.7 x 2.9 x 3 cm Echogenicity: Normal. Contour: Smooth. Mass: None seen. Microlithiasis: None. Hydrocele: None. Variocele: None. Hernia: No peristalsing bowel loop identified. Epididymis: Normal. Left testicle: 4.4 x 2.2 x 3.2 cm Echogenicity: Normal. Contour: Smooth. Mass: 0.4 cm simple cyst in the lateral aspect of the left testicle. Microlithiasis: None. Hydrocele: Very small hydrocele. Variocele: None. Hernia: No peristalsing bowel loop identified. Epididymis: Normal. DOPPLER: Color: Symmetric and uniform, no hyperemia. Duplex: Bilateral testicular arterial waveforms visualized. IMPRESSION: No evidence of testicular torsion, mass or infection. DATA REPOSITORY:
[2019-11-05] MEDS: Normal Saline 1,000 ML 150 ML IV (11:18)
[2019-11-05] MEDS: Ketorolac 30 MG/ML VIAL IVP (11:22)
== END 2019-11-05 13:00 | disposition home or self-care (01) ==
PROVIDERS: Emergency Provider Physician Assistant; PCP Family Medicine
DX: N13.2 Hydronephrosis with renal and ureteral calculous obstruction (principal); R11.0 Nausea; N50.811 Right testicular pain; N50.812 Left testicular pain
CPT/HCPCS: 36415; 80053; 83690; 96361; 96365; 96375; 99285; 74177; 76870; 81003; 81015; 82140; 85025; 87086; 99284; J0131; J1885; J2405; J3490

== ENCOUNTER 2019-11-05 12:30 | Outpatient (CLI) | payer BC, SELFPAY ==
[2019-11-06 18:50] LABS: COVID-19 RT-PCR UVMMC Result Negative (Negative)
== END 2019-11-05 12:50 ==
PROVIDERS: PCP Family Medicine; Visit Provider Physician Assistant
DX: Z11.59 Encounter for screening for other viral diseases (principal)
CPT/HCPCS: U0003

== ENCOUNTER 2019-11-10 10:07 | Day surgery (SDC) | payer BC, SELFPAY ==
--- NOTE | 2019-11-10 10:38 | HPE_ITS ---
Date of service: 11/10/19 Time of Service: 11:53 Assessment and Plan Assessment and plan (1) Kidney stone on left side: Status: Acute Assessment and plan: Greater than 50% of this 30 min OV was in counseling and coordination of the assessment/plan. Reviewed with patient that he does in fact have a 7 mm stone in the left UVJ causing mild hydro-based upon CT that was done through the emergency room on 11/04. Based upon today's exam with positive left CVA tenderness and the uncontrolled discomfort worsening, recommend stone manipulation through surgical procedure. Since patient has been n.p.o. we will make arrangements to have this done as early as today if possible. Procedure was able to be scheduled for today. Patient was informed about procedure and has no questions or concerns. He is already been COVID tested and was negative. He has self quarantine at home since his testing. We did discuss possible pain management treatment after the procedure. Based upon his history and desire to not use narcotics, we could use Toradol with this individual. He expresses understanding. He was directed to DSU. We discussed a number of techniques including balloon dilation of the ureteral meatus with stone extraction versus ureteroscopy with holmium laser lithotripsy. If we are unable to access the stone, we will plan on placing a ureteral stent and doing a staged procedure whereby we bring him back to the operating room in a week or so to extract the stone. History of Present Illness Narrative: Som is a 49-year-old male referred to urology by the emergency room. He was seen on November 05, 2019 for left flank pain. It was determined at that time he had a 7 mm left UVJ stone causing mild hydronephrosis. Patient has been able to manage pain by taking Tylenol and ibuprofen. He has a history of narcotic addiction and did not want further medication. He is here today to discuss surgical intervention due to uncontrolled pain. He notes this is not the first time with kidney stones. He has had multiple kidney stones in the past but never had any analyzed due to not being able to collect them. He has passed his previous stones without difficulty. This is the first time he would need a surgical intervention. He has no history of gout. He has no history of parathyroidism. He notes that he has had some frequency, urgency, flank pain, and intermittent gross hematuria over the last few days. He denies fevers, chills, nausea, vomiting, or difficulty voiding. He reports that he has been n.p.o. since midnight. He has taken any acetaminophen or ibuprofen at this point in the day. He reports last time he had any was last night at bedtime. Review of Systems Narrative: Const: Denies chills, fatigue or fever(s) Card: Denies chest pain or dyspnea Resp: Denies dyspnea GI: Denies abdominal pain, constipation or diarrhea : Reports hematuria, flank pain, urinary frequency and urinary urgency; Denies dysuria, nocturia, urinary hesitancy or urinary incontinence Endo: Denies fatigue [facility] Social History Smoking/Tobacco Use Status: Former Tobacco Use Tobacco: How many years used: 10 Second Hand Exposure: Yes Alcohol Intake: former Drug use: Current Sobriety Substance use type: former substance user Details: 26 years clean per pt Caregiver/Support person: No Household members: spouse and children Housing: house Communication Needs: None Do you need help understanding health information?: Never Pets and animals: Yes Pets and animals: dog(s) Sexually active: Yes Do you think of yourself as: straight/heterosexual Current gender identity: male What is your relationship status?: How often do you talk on the phone with friends or family?: once per week How often do you get together with friends or relatives?: once per week How often do you attend buddhist or oriental orthodox services?: decline to answer Do you belong to any clubs or organized social groups?: no Panel score (0-1 are the most socially isolated patients): 1 What type of physical activity do you participate in: walking and other Details: PiYo Duration: < 15 minutes/day Frequency: 1-2 times per week Ilda/Rastafari: None Special ilda needs: No Seatbelt use: always Helmet use: Yes Helmet use: sometimes Drive intox or ride w/intox tilt tray 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 Meds Home Medications and Allergies Home Medications Medication Instructions Recorded Confirmed Type meclizine 25 mg PO TID PRN #30 tab-cap 10/04/14 11/10/19 History cholecalciferol (vitamin D3) 2 cap PO DAILY 09/09/15 11/10/19 History [Vitamin D3] multivitamin 1 tab PO DAILY 09/09/15 11/10/19 History levothyroxine 50 mcg capsule 50 mcg PO DAILY #30 cap 12/03/18 11/10/19 Rx magnesium 250 mg tablet 1,000 mg PO DAILY tab 02/23/19 11/10/19 History vitamin B complex 1 tab PO DAILY 02/23/19 11/10/19 History albuterol sulfate 90 mcg/actuation 2 puff IH Q6H PRN #8.5 gm 04/27/19 11/10/19 Rx aerosol inhaler lactobacillus combination no.8 3 3,000 mmu cells PO DAILY 04/27/19 11/10/19 History billion cell capsule nortriptyline 25 mg capsule 25 mg PO QHS #90 cap 10/19/19 11/10/19 Rx ibuprofen 800 mg PO Q6H PRN #20 tab 11/05/19 11/10/19 Rx tamsulosin [Flomax] 0.4 mg PO DAILY #7 cap 11/05/19 11/10/19 Rx Allergies Allergy/AdvReac Type Severity Reaction Status Date / Time erythromycin base AdvReac Intermediate Vomiting Verified 11/10/19 10:38 [Erythromycin Base] cigarette smoke Allergy Uncoded 11/10/19 10:38 Exam Narrative Exam Narrative: Const Orientation: alert, awake and oriented x3 Other: VS reviewed that were done by nurse Eyes Sclera: sclerae normal Resp Effort & Inspection: normal respiratory effort GI Inspection: normal to inspection and non-distended Palpation: soft and nontender General: CVA tenderness on the left; not on the right Extrem General: full ROM LUNGS: Clear CARDIAC: Regular rate and rhythm COVID-19 Screening In the past 14 days, have you traveled outside of [place] or [place]?: NO Medical treatment received for symptoms/illness related to travel?: Preop testing done and negative
[2019-11-10 10:44] VITALS: BP 124/84; PULSE 59; RESP 17; TEMP 36.3; O2SAT 99
[2019-11-10] MEDS: Lactated Ringers 1,000 ML 80 ML IV (10:51)
[2019-11-10] MEDS: ceFAZolin 1 GM/50 ML BAG IVPB (12:45)
--- NOTE | 2019-11-10 13:36 | W.PM.DSUDISC ---
Discharge Plan Disposition Patient Disposition: HOME Condition: Stable Discharge Details Reason For Visit: (L) URETERAL STONE Attending Provider: Barry Roman Primary Care Provider: Ebenezer Rodríguez Home Meds and New Rx's Prescriptions: New ketorolac 10 mg tablet 10 mg PO QID PRN (Reason: pain) Qty: 15 RF: 0 No Action nortriptyline 25 mg capsule 25 mg PO QHS Qty: 90 RF: 5 vitamin B complex [B Complex 1] Tablet 1 tab PO DAILY RF: 0 magnesium 250 mg tablet 1,000 mg PO DAILY RF: 0 Adult Probiotic 3 billion cell capsule 3,000 mmu cells PO DAILY RF: 0 albuterol sulfate [Ventolin HFA] 90 mcg/actuation HFA aerosol inhaler 2 puff IH Q6H PRN (Reason: shortness of breath or wheezing) Qty: 8.5 RF: 0 meclizine 25 MG tablet 25 mg PO TID PRNQty: 30 RF: 0 levothyroxine 50 mcg capsule 50 mcg PO DAILY Qty: 30 RF: 11 multivitamin 1 EACH tablet 1 tab PO DAILY RF: 0 cholecalciferol (vitamin D3) [Vitamin D3] 1,000 UNIT capsule 2 cap PO DAILY RF: 0 ibuprofen 800 mg tablet 800 mg PO Q6H PRNQty: 20 RF: 0 tamsulosin [Flomax] 0.4 mg capsule 0.4 mg PO DAILY Qty: 7 RF: 0 Discharge Instructions Additional Instructions: no need to strain urine F/U 3 days for stent removal (tell office pt has string on stent) F/U appt 6 to 8 weeks with renal US script for Toradol sent to pharmacy Activity:: Activity as Tolerated Shower/Bathe:: 24 hours Diet:: As Tolerated Discharge Orders Discharge Orders: Discharge Order (Routine); Ordered 11/10/19 Ordered By: Barry Roman DS: Diagnosis Discharge Diagnosis (1) Kidney stone on left side: Status: Acute
--- NOTE | 2019-11-10 13:43 | ROE_ITS ---
Date of service: 11/10/19 Time of Service: 13:43 Operative Note Operative Note DATE OF PROCEDURE: 11/10/19 PRE-OP DIAGNOSIS: Left ureteral stone POST-OP DIAGNOSIS: same PROCEDURE: Cystoscopy, left retrograde pyelogram, left ureteral dilation, left semirigid ureteroscopy, extraction of left ureteral stone, insert left ureteral stent SURGEON: Barry Roman ANESTHESIA: other (General without intubation) ESTIMATED BLOOD LOSS: 0 PATHOLOGY: other (Stones sent for chemical analysis) COMPLICATIONS: None Patient was transported to: same day Patient's condition: stable Implants: 4.8 Sudanese 22 x 30 cm long ureteral stent Indications: This is a 49-year-old gentleman who presented to the emergency room late last week with a left lower quadrant pain. He was also having gross hematuria and urinary frequency. He had pain radiating to the left testis. On evaluation, he was found to have a 7 mm left distal ureteral stone. He was treated conservatively, but his stone did not progress. He presents now for stone manipulation. Findings: Distal left ureteral stone Procedure Description: The patient was given preoperative IV antibiotics. He was brought to the operating room on 11/10/2019. After successful induction of general anesthesia without intubation, he was placed in the dorsal lithotomy position. His genitalia was prepped and draped. 2% Xylocaine jelly was instilled into the urethra to act as a local anesthetic. A 22 Sudanese rigid cystoscope was passed through the urethra into the bladder. The urethra and bladder were inspected using a 30 degree lens. The pendulous urethra showed some annular rings consistent with previous urethral stricture disease. None of these rings were small enough that they could not accommodate the 22 Sudanese scope. The membranous and bulbous urethra was appeared normal. The prosthetic urethra showed very minimal lateral lobe enlargement. The bladder neck was entered and the bladder mucosa was inspected. The right ureteral orifice appeared completely normal. The left orifice was much more edematous than the right. The remainder of the bladder appeared normal with no papillary or nodular lesions. I passed a 6 Sudanese access catheter through the cystoscope and maneuvered into the left ureteral orifice. Retrograde film was obtained by injecting Omnipaque through the access catheter under fluoroscopic guidance. The filling defect was outlined just within the ureteral orifice. I then passed a guidewire through the access catheter and maneuvered the wire above the level of the stone. Because of the edema in the distal ureter, I elected to dilate the ureter with a UroMax balloon. I was then able to pass a semirigid ureteroscope through the urethra into the bladder and negotiate the scope into the left ureteral orifice. A stone could be seen adherent to the mucosal wall. I was able to tease the stone off the mucosa and grasped the stone in a Front App stone basket. The stone was then sent to pathology for permanent section. Because of the trauma from dilation, I elected to place a ureteral stent. I used a 4.8 Sudanese variable length stent and advanced it over the indwelling wire. The stent was positioned with the proximal end curled in the renal pelvis and the distal end curled within the bladder. We left the safety string in place and brought the string through the urethra. We anchored the string onto the dorsum of the penis with a Steri-Strip. We should be able to remove the stent in 48 to 72 hours. The patient tolerated this procedure well with no complications.
--- NOTE | 2019-11-10 13:52 | DI.RAD_ITS ---
EXAM: XR RETROGRADE IN OR CLINICAL HISTORY: Left kidney stone. TECHNIQUE: 2D and realtime digital imaging was performed. COMPARISON: No exams were available for comparison FINDINGS: Fluoroscopy was provided for guidance with retrograde examination. Hard copy image shows the lower end of a pigtail catheter in the expected location of the left side of the bladder. Please see proce dure note for details. Fluoro Time: 24.7 seconds RADIATION DOSE DELIVERED:
[2019-11-10] MEDS: Lidocaine 2% Jelly 6 ML SYR (13:58)
[2019-11-10] MEDS: Omnipaque 300 MG/ML 50 ML BTL (13:58)
[2019-11-10] MEDS: Phenazopyridine 200 MG TAB PO (14:20)
[2019-11-10 14:22] VITALS: BP 113/81; PULSE 52; RESP 18; TEMP 36; O2SAT 99
[2019-11-14 12:32] LABS: Source: Left Ureter
== END 2019-11-10 15:20 | disposition home or self-care (01) ==
PROVIDERS: PCP Family Medicine; Visit Provider Urology
PROC: (CPT 52352; principal; 2019-11-10 12:00)
DX: N20.1 Calculus of ureter (principal)
CPT/HCPCS: 52352; 52332; 76000; NC; 74420; 82365; J0131; J0690; J1100; J1885; J2001; J2405; Q9967

== ENCOUNTER 2019-12-16 02:14 | Outpatient (CLI) | payer BC, SELFPAY ==
--- NOTE | 2019-12-16 13:45 | DI.US_ITS ---
EXAM: US RENAL CLINICAL HISTORY: Calculus of lt kidney, N20.0, r/o hydronephrosis after ureteroscopy. TECHNIQUE: Pichardo scale, color and spectral Doppler were used. COMPARISON: CT CT ABDOMEN PELVIS W from 11/05/2019 FINDINGS: Renal size in cm: Right: 10.9 left: 11.9 Echogenicity: Normal. Hydronephrosis: No. Cyst or mass: No. Nephrolithiasis: There are 2 echogenic foci seen in the upper pole of the left kidney. The largest m easures 0.5 cm. Other findings: None. Bladder:Normal. Ureteral jets: Right: Visualized and unremarkable. Left: Visualized and unremarkable. Prevoid vol:290 cc Postvoid vol:19 cc Prostate: 16 cc IMPRESSION: No evidence of hydronephrosis. Left nephrolithiasis. DATA REPOSITORY:
== END 2019-12-16 02:34 ==
PROVIDERS: PCP Family Medicine; Visit Provider Urology
DX: N20.0 Calculus of kidney (principal)
CPT/HCPCS: 76770

== ENCOUNTER 2019-12-31 13:01 | Outpatient (CLI) | payer BC, SELFPAY ==
--- NOTE | 2019-12-31 12:45 | DI.RAD_ITS ---
EXAM: XR ABDOMEN FLAT PLATE CLINICAL HISTORY: KS, sudden pain N20.9 URINARY CALCULUS TECHNIQUE: COMPARISON: CR AIR CONTRAST BARIUM ENEMA(P) from 09/06/[address] ABDOMEN PELVIS W from 11/05/2019 FINDINGS: Two views were obtained. Pelvic phleboliths are noted. No definite urinary tract calcifications see n. IMPRESSION:
== END 2019-12-31 13:21 ==
PROVIDERS: PCP Family Medicine; Visit Provider Urology
DX: N23 Unspecified renal colic (principal); N20.9 Urinary calculus, unspecified
CPT/HCPCS: 74018

== ENCOUNTER 2020-01-08 09:00 | Day surgery (SDC) | payer BC, SELFPAY ==
[2020-01-08 09:15] VITALS: BP 125/81; PULSE 64; RESP 16; TEMP 36.5; O2SAT 99
--- NOTE | 2020-01-08 09:25 | W.PM.HP.N ---
Assessment and Plan Assessment and plan (1) Urolithiasis: Status: Chronic Assessment and plan: Clinically, we suspect a left ureteral stone. We will move forward with cystoscopy, left retrograde pyelogram, left ureteroscopy and possible stone manipulation. History of Present Illness History of Present Illness Chief Complaint: Left renal colic Narrative: This is a 49-year-old gentleman who has a history of a left ureteral stone. In the past, he was treated ureteroscopically. His follow-up ultrasound showed no hydronephrosis, but there did appear to be nonobstructing stones in the upper pole of the left kidney. For the past week, he has been having left flank pain with radiation down to the pelvis. We did not see a definitive stone on KUB, but symptomatically, we suspect 1 of his left kidney stones has migrated into the ureter. He has failed conservative management and presents now for stone manipulation. Review of Systems Narrative: No fevers or chills No vision change or dysphasia No diabetes. Hx hypothyroidism No shortness of breath, cough or hemoptysis No chest pain or palpitations Hx GERD. No hepatitis, ulcers, jaundice, diarrhea or constipation No seizures, strokes. Hx peripheral neuropathy No bleeding disorders or anemia No gout PFSH Medical History (Updated 01/08/20 @ 09:10 by Ernesto Dumont) Depression (Chronic 09/03/17) Diverticulosis of colon without diverticulitis (Chronic) per colonoscopy 09/14/09-Dr. Mcdermott Fracture of lumbar spine (Acute) Gastroesophageal reflux disease (Chronic 06/29/13) History of narcotic addiction (Acute) does not want narcotics offered to him at any time Hypothyroid (Chronic) Hypothyroidism (Chronic) IBS (irritable bowel syndrome) (Chronic) Migraines (Chronic) Peripheral polyneuropathy (Acute) PTSD (post-traumatic stress disorder) (Chronic 09/03/17) Renal calculi (Chronic) TBI (traumatic brain injury) (Inactive) Surgical History History of right knee surgery (Acute) History of shoulder surgery (Chronic) Social History Smoking/Tobacco Use Status: Former Tobacco Use Tobacco: How many years used: 10 Second Hand Exposure: Yes Alcohol Intake: former Drug use: Current Sobriety Substance use type: former substance user Details: 26 years clean per pt Caregiver/Support person: No Household members: spouse and children Housing: house Communication Needs: None Do you need help understanding health information?: Never Pets and animals: Yes Pets and animals: dog(s) Sexually active: Yes Do you think of yourself as: straight/heterosexual Current gender identity: male What is your relationship status?: How often do you talk on the phone with friends or family?: once per week How often do you get together with friends or relatives?: once per week How often do you attend moravian or synagogue services?: decline to answer Do you belong to any clubs or organized social groups?: no Panel score (0-1 are the most socially isolated patients): 1 What type of physical activity do you participate in: walking and other Details: PiYo Duration: < 15 minutes/day Frequency: 1-2 times per week Ilda/Yarsanism: None Special ilda needs: No Seatbelt use: always Helmet use: Yes Helmet use: sometimes Drive intox or ride w/intox certified driver examiner: No Do you feel safe at home: Yes Do you feel safe in your relationship?: Yes Meds Home Medications and Allergies Home Medications Medication Instructions Recorded Confirmed Type meclizine 25 mg PO TID PRN #30 tab-cap 10/04/14 01/08/20 History cholecalciferol (vitamin D3) 2 cap PO DAILY 09/09/15 01/08/20 History [Vitamin D3] multivitamin 1 tab PO DAILY 09/09/15 01/08/20 History magnesium 250 mg tablet 1,000 mg PO DAILY tab 02/23/19 01/08/20 History vitamin B complex 1 tab PO DAILY 02/23/19 01/08/20 History albuterol sulfate 90 mcg/actuation 2 puff IH Q6H PRN #8.5 gm 04/27/19 01/08/20 Rx aerosol inhaler lactobacillus combination no.8 3 3,000 mmu cells PO DAILY 04/27/19 01/08/20 History billion cell capsule nortriptyline 25 mg capsule 25 mg PO QHS #90 cap 10/19/19 01/08/20 Rx ibuprofen 800 mg PO Q6H PRN #20 tab 11/05/19 01/08/20 Rx levothyroxine 50 mcg capsule 50 mcg PO DAILY #30 cap 12/14/19 01/08/20 Rx ketorolac 10 mg tablet 10 mg PO QID PRN #15 tab 12/31/19 01/08/20 Rx ondansetron HCl 8 mg tablet 8 mg PO Q8H PRN #10 tab 12/31/19 01/08/20 Rx tamsulosin 0.4 mg capsule 0.4 mg PO DAILY #30 cap 01/04/20 01/08/20 Rx acetaminophen [Tylenol] 650 mg PO ONCE PRN 01/08/20 01/08/20 History Allergies Allergy/AdvReac Type Severity Reaction Status Date / Time erythromycin base AdvReac Intermediate Vomiting Verified 01/08/20 09:10 [Erythromycin Base] cigarette smoke Allergy Uncoded 01/08/20 09:10 Exam Narrative Exam Narrative: He appears uncomfortable His vital signs are documented elsewhere His neck is supple Lungs are clear. He does not appear short of breath at rest Cardiac exam shows a regular rate and rhythm His abdomen is soft with no guarding or rebound tenderness He is awake and alert Results Last Vital Signs Temp 36.5 C 01/08/20 09:15 Pulse 64 01/08/20 09:15 Resp 16 01/08/20 09:15 BP 125/81 01/08/20 09:15 Pulse Ox 99 01/08/20 09:15 COVID-19 Screening Have you,or household,traveled outside [place] in last 14 days?: Yes Had IN PERSON contact w/suspected or confirmed C-19 person: No
[2020-01-08] MEDS: Lactated Ringers 1,000 ML 80 ML IV (09:55)
--- NOTE | 2020-01-08 10:00 | DI.RAD_ITS ---
EXAM: XR RETROGRADE IN OR CLINICAL HISTORY: kidney stone TECHNIQUE: 2D and realtime digital imaging was performed. CONTRAST MATERIAL: Refer to procedure report. COMPARISON: No exams were available for comparison FINDINGS: Fluoroscopy was provided for Dr. Roman during the performance of a retrograde evaluation of the michelle l collecting system. Please refer to the procedure report for complete details. Fluoro time: 42.7 seconds IMPRESSION: RADIATION DOSE DELIVERED:
[2020-01-08] MEDS: ceFAZolin 2 GM/50 ML BAG IVPB (10:54)
[2020-01-08] MEDS: Omnipaque 300 MG/ML 50 ML BTL (11:10)
[2020-01-08] MEDS: Lidocaine 2% Jelly 6 ML SYR (11:10)
--- NOTE | 2020-01-08 11:43 | W.PM.DSUDISC ---
Discharge Plan Disposition Patient Disposition: HOME Condition: Stable Discharge Details Reason For Visit: L URETERAL STONE Attending Provider: Barry Roman Primary Care Provider: Ebenezer Rodríguez Home Meds and New Rx's Prescriptions: No Action nortriptyline 25 mg capsule 25 mg PO QHS Qty: 90 RF: 5 vitamin B complex [B Complex 1] Tablet 1 tab PO DAILY RF: 0 magnesium 250 mg tablet 1,000 mg PO DAILY RF: 0 Adult Probiotic 3 billion cell capsule 3,000 mmu cells PO DAILY RF: 0 albuterol sulfate [Ventolin HFA] 90 mcg/actuation HFA aerosol inhaler 2 puff IH Q6H PRN (Reason: shortness of breath or wheezing) Qty: 8.5 RF: 0 ketorolac 10 mg tablet 10 mg PO QID PRN (Reason: pain) Qty: 15 RF: 0 ondansetron HCl 8 mg tablet 8 mg PO Q8H PRN (Reason: nausea and vomiting) Qty: 10 RF: 0 tamsulosin [Flomax] 0.4 mg capsule 0.4 mg PO DAILY Qty: 30 RF: 0 meclizine 25 MG tablet 25 mg PO TID PRNQty: 30 RF: 0 levothyroxine 50 mcg capsule 50 mcg PO DAILY Qty: 30 RF: 11 multivitamin 1 EACH tablet 1 tab PO DAILY RF: 0 cholecalciferol (vitamin D3) [Vitamin D3] 1,000 UNIT capsule 2 cap PO DAILY RF: 0 acetaminophen [Tylenol] 325 mg Tablet 650 mg PO ONCE PRNRF: 0 ibuprofen 800 mg tablet 800 mg PO Q6H PRNQty: 20 RF: 0 Discharge Instructions Additional Instructions: No need to strain urine My office will contact pt to arrange cystoscopy, stent removal and repeat flexible ureteroscopy to make sure ureteral stricture remains open Stand Alone Forms: [facility] Helms ([facility]) Activity:: Activity as Tolerated Shower/Bathe:: 24 hours Diet:: As Tolerated Discharge Orders Discharge Orders: Discharge Order (Routine); Ordered 01/08/20 Ordered By: Barry Roman DS: Diagnosis Discharge Diagnosis (1) Urolithiasis: Status: Chronic
--- NOTE | 2020-01-08 11:47 | W.PM.OP ---
Date of service: 01/08/20 Time of Service: 11:47 Operative Note Operative Note DATE OF PROCEDURE: 01/08/20 PRE-OP DIAGNOSIS: Left ureteral stone POST-OP DIAGNOSIS: other Left ureteral stricture PROCEDURE: Cystoscopy, left retrograde pyelogram, left flexible ureteroscopy, insert left ureteral stent SURGEON: Barry Roman ANESTHESIA: spinal ESTIMATED BLOOD LOSS: 0 PATHOLOGY: none sent COMPLICATIONS: None Patient was transported to: PACU Patient's condition: stable Implants: 7 Vietnamese 22-30 cm length ureteral stent Indications: This is a 49-year-old gentleman who has a past history of urolithiasis. He required ureteroscopy and stone manipulation in the past. His follow-up renal ultrasound showed no hydronephrosis, but there was a question of left upper pole stones that were nonobstructing at that time. He has developed a recurrent renal colic symptoms. He did not improve with conservative management. We suspected that the previous kidney stones had migrated into the ureter and were now symptomatic. He presents for stone manipulation. Findings: 1. Strictured area and location of previous ureteral stone 2. Very small stone in lower pole calyx Procedure Description: The patient was given preoperative IV antibiotics. He was brought to the operating room on 01/08/2020. After successful induction of spinal anesthesia he was placed in the dorsal lithotomy position. His genitalia was prepped and draped. 2% Xylocaine jelly was instilled into the urethra to act as a local anesthetic. A 22 Vietnamese rigid cystoscope was passed through the urethra into the bladder. Urethra and bladder were inspected with the 30 degree lens. The pendulous, bulbous and membranous urethra was all appeared normal with no strictures. The prostatic urethra showed some mild lateral lobe enlargement but no median lobe. The bladder neck was then entered the bladder mucosa was inspected. Both ureteral orifice ease appeared normal. No blood was seen coming from either side. A 6 Vietnamese access catheter was then passed through the cystoscope and maneuvered into the left ureteral orifice. A retrograde film was obtained by injecting Omnipaque through the access catheter under fluoroscopic guidance. No filling defects were seen and no dilation was seen of the collecting system or calyces. I then passed a guidewire through the access catheter and remove the access catheter. We passed the dual-lumen catheter over the wire and positioned a second wire. We chose 1 of the wires as a working wire and the second 1 is a safety wire. A ureteral access sheath was advanced over the working wire leaving the safety wire in place. The flexible ureteroscope was advanced up through the access sheath and the proximal ureter and calyces were then inspected. A less than one 1 mm stone was identified in the lower pole calyx no additional stones were identified. We then withdrew the scope down the remainder of the ureter as we withdrew the access sheath. No stones were found within the lumen of the ureter, but there was a narrowed area at the location of his previous ureteral stone. This area had the appearance of a ureteral stricture and there was some mucosal changes which I presume were related to placement of the access sheath. I suspect that his current symptoms are related more to a ureteral stricture than to an actual stone. I chose to pass a 7 Vietnamese variable length stent over the safety wire. The proximal end of the stent could be seen curled in the renal pelvis and the distal end was curled within the bladder. The positioning of the stent was confirmed both fluoroscopically and cystoscopically. We will plan on leaving the stent for approximately 2 to 4 weeks before re-doing a ureteroscopy to ensure that ureter remains open. The patient tolerated this procedure well with no complications
[2020-01-08 11:54] VITALS: BP 112/71; PULSE 68; RESP 12; TEMP 36; O2SAT 95
[2020-01-08 11:59] VITALS: BP 107/74; PULSE 56; RESP 12; TEMP 36.2; O2SAT 98
[2020-01-08 12:04] VITALS: BP 106/71; PULSE 56; RESP 11; TEMP 36.2; O2SAT 98
[2020-01-08 12:17] VITALS: BP 110/73; PULSE 55; RESP 13; TEMP 36.2; O2SAT 100
[2020-01-08] MEDS: Phenazopyridine 200 MG TAB PO (12:44)
[2020-01-08 13:43] VITALS: BP 104/73; PULSE 53; RESP 16; TEMP 36; O2SAT 100
== END 2020-01-08 15:15 | disposition home or self-care (01) ==
PROVIDERS: PCP Family Medicine; Visit Provider Urology
PROC: (CPT 52332; principal; 2020-01-08 13:15)
DX: N20.1 Calculus of ureter (principal); Z87.442 Personal history of urinary calculi; N13.5 Crossing vessel and stricture of ureter without hydronephrosis
CPT/HCPCS: 52332; NC; 74420; J0131; J0690; J1100; J1885; J2250; J2405; J2704; Q9967

== ENCOUNTER 2020-01-22 07:42 | Outpatient (CLI) | payer BC, SELFPAY ==
[2020-01-23 18:29] LABS: COVID-19 RT-PCR Result NEGATIVE (Negative)
== END 2020-01-22 08:02 ==
PROVIDERS: PCP Family Medicine; Visit Provider Urology
DX: Z11.59 Encounter for screening for other viral diseases (principal)
CPT/HCPCS: U0003

== ENCOUNTER 2020-01-25 07:06 | Day surgery (SDC) | payer BC, SELFPAY ==
--- NOTE | 2020-01-25 06:55 | W.PM.HP.N ---
Date of service: 01/25/20 Time of Service: 07:52 Assessment and Plan Assessment and plan (1) Urolithiasis: Status: Chronic Assessment and plan: We will plan to remove the stent then go ureteroscopy to insure his ureteral stent remains open. History of Present Illness History of Present Illness Chief Complaint: Left ureteral stricture Narrative: This is a 49 year old man who had a previous left ureteroscopy with stone manipulation. I did not leave a ureteral stent in the immediate post-operative period. He presented with complains of left sided abdominal and flank pain. With the presumptive diagnosis of ureteral stone, we did a ureteroscopy and identified a ureteral stricture at the site of his previous stone. We placed a ureteral stent for dilation. He presents for stent removal and repeat ureteroscopy to insure that the ureter is remaining open. He has had spasms and bleeding since the stent was placed. He presents for stent removal. Review of Systems Narrative: No fevers or chills No vision change or dysphasia No diabetes. Thyroid dysfunction No shortness of breath, cough or hemoptysis No chest pain or palpitations Hx GERD. No nausea, vomiting, hepatitis, ulcers, jaundice, diarrhea or constipation No seizures, strokes. Hx migraine headaches No bleeding disorders or anemia No gout [facility] Medical History Depression (Chronic 09/03/17) Diverticulosis of colon without diverticulitis (Chronic) per colonoscopy 09/14/09-Dr. Mcdermott Fracture of lumbar spine (Acute) Gastroesophageal reflux disease (Chronic 06/29/13) History of narcotic addiction (Acute) does not want narcotics offered to him at any time Hypothyroid (Chronic) Hypothyroidism (Chronic) IBS (irritable bowel syndrome) (Chronic) Migraines (Chronic) Peripheral polyneuropathy (Acute) PTSD (post-traumatic stress disorder) (Chronic 09/03/17) Renal calculi (Chronic) TBI (traumatic brain injury) (Inactive) Surgical History History of right knee surgery (Acute) History of shoulder surgery (Chronic) Family History Mother No problems noted. Father Diabetes Melanoma Heart disease Hyperlipidemia Sister Multiple sclerosis Substance abuse Brother Asthma Alcohol abuse Substance abuse Maternal Grandfather , 70 Alcohol abuse Cancer Paternal Grandfather , in his 50s Tuberculosis Maternal Grandmother , 72 Alcohol abuse Asthma Cancer Paternal Grandmother Cancer Son Asthma Daughter Depression Anxiety Social History Smoking/Tobacco Use Status: Former Tobacco Use Tobacco: How many years used: 10 Second Hand Exposure: Yes Alcohol Intake: former Drug use: Current Sobriety Substance use type: former substance user Details: 26 years clean per pt Caregiver/Support person: No Household members: spouse and children Housing: house Communication Needs: None Do you need help understanding health information?: Never Pets and animals: Yes Pets and animals: dog(s) Sexually active: Yes Do you think of yourself as: straight/heterosexual Current gender identity: male What is your relationship status?: How often do you talk on the phone with friends or family?: once per week How often do you get together with friends or relatives?: once per week How often do you attend roman catholic or temple services?: decline to answer Do you belong to any clubs or organized social groups?: no Panel score (0-1 are the most socially isolated patients): 1 What type of physical activity do you participate in: walking and other Details: PiYo Duration: < 15 minutes/day Frequency: 1-2 times per week Ilda/Yazdanism: None Special ilda needs: No Seatbelt use: always Helmet use: Yes Helmet use: sometimes Drive intox or ride w/intox service parts 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 Meds Home Medications and Allergies Home Medications Medication Instructions Recorded Confirmed Type meclizine 25 mg PO TID PRN #30 tab-cap 10/04/14 01/21/20 History cholecalciferol (vitamin D3) 2 cap PO DAILY 09/09/15 01/21/20 History [Vitamin D3] multivitamin 1 tab PO DAILY 09/09/15 01/21/20 History magnesium 250 mg tablet 1,000 mg PO DAILY tab 02/23/19 01/21/20 History vitamin B complex 1 tab PO DAILY 02/23/19 01/21/20 History albuterol sulfate 90 mcg/actuation 2 puff IH Q6H PRN #8.5 gm 04/27/19 01/21/20 Rx aerosol inhaler lactobacillus combination no.8 3 3,000 mmu cells PO DAILY 04/27/19 01/21/20 History billion cell capsule ibuprofen 800 mg PO Q6H PRN #20 tab 11/05/19 01/21/20 Rx levothyroxine 50 mcg capsule 50 mcg PO DAILY #30 cap 12/14/19 01/21/20 Rx ketorolac 10 mg tablet 10 mg PO QID PRN #15 tab 12/31/19 01/21/20 Rx ondansetron HCl 8 mg tablet 8 mg PO Q8H PRN #10 tab 12/31/19 01/21/20 Rx tamsulosin 0.4 mg capsule 0.4 mg PO DAILY #30 cap 01/04/20 01/21/20 Rx acetaminophen [Tylenol] 650 mg PO ONCE PRN 01/08/20 01/21/20 History oxybutynin chloride 5 mg tablet 5 mg PO Q6H PRN PRN #30 tab 01/18/20 01/21/20 Rx nortriptyline [Pamelor] 25 mg PO QHS 01/25/20 01/25/20 History Allergies Allergy/AdvReac Type Severity Reaction Status Date / Time erythromycin base AdvReac Intermediate Vomiting Verified 01/21/20 12:22 [Erythromycin Base] cigarette smoke Allergy Uncoded 01/21/20 12:22 Exam Const General: cooperative and well developed Neck Neck: supple Chest Chest: normal inspection of the chest Resp Effort & Inspection: normal respiratory effort Auscultation: clear to auscultation bilaterally Cardio Rate: regular rate Rhythm: regular rhythm GI Palpation: soft and no masses Neuro General: patient alert, patient awake and patient oriented x3 COVID-19 Screening Have you,or household,traveled outside [place] in last 14 days?: No Had IN PERSON contact w/suspected or confirmed C-19 person: No
[2020-01-25 07:16] VITALS: BP 114/90; PULSE 67; RESP 16; TEMP 36.3; O2SAT 97
[2020-01-25] MEDS: Lactated Ringers 1,000 ML 80 ML IV (07:40)
[2020-01-25] MEDS: ceFAZolin 2 GM/50 ML BAG IVPB (07:54)
[2020-01-25] MEDS: Lidocaine 2% Jelly 6 ML SYR (08:08)
--- NOTE | 2020-01-25 08:23 | W.PM.DSUDISC ---
Discharge Plan Disposition Patient Disposition: HOME Condition: Stable Discharge Details Attending Provider: Barry Roman Primary Care Provider: Ebenezer Rodríguez Home Meds and New Rx's Prescriptions: Continued vitamin B complex [B Complex 1] Tablet 1 tab PO DAILY RF: 0 magnesium 250 mg tablet 1,000 mg PO DAILY RF: 0 Adult Probiotic 3 billion cell capsule 3,000 mmu cells PO DAILY RF: 0 albuterol sulfate [Ventolin HFA] 90 mcg/actuation HFA aerosol inhaler 2 puff IH Q6H PRN (Reason: shortness of breath or wheezing) Qty: 8.5 RF: 0 ondansetron HCl 8 mg tablet 8 mg PO Q8H PRN (Reason: nausea and vomiting) Qty: 10 RF: 0 tamsulosin [Flomax] 0.4 mg capsule 0.4 mg PO DAILY Qty: 30 RF: 0 meclizine 25 MG tablet 25 mg PO TID PRNQty: 30 RF: 0 levothyroxine 50 mcg capsule 50 mcg PO DAILY Qty: 30 RF: 11 oxybutynin chloride 5 mg tablet 5 mg PO Q6H PRN PRN (Reason: bladder spasms) Qty: 30 RF: 0 multivitamin 1 EACH tablet 1 tab PO DAILY RF: 0 cholecalciferol (vitamin D3) [Vitamin D3] 1,000 UNIT capsule 2 cap PO DAILY RF: 0 acetaminophen [Tylenol] 325 mg Tablet 650 mg PO ONCE PRNRF: 0 nortriptyline [Pamelor] 25 mg capsule 25 mg PO QHS RF: 0 ketorolac 10 mg tablet 10 mg PO QID PRN (Reason: pain) Qty: 15 RF: 0 ibuprofen 800 mg tablet 800 mg PO Q6H PRNQty: 20 RF: 0 Discharge Instructions Additional Instructions: Followup 4 to 6 weeks with renal ultrasound Activity:: Activity as Tolerated Shower/Bathe:: 24 hours Diet:: As Tolerated Discharge Orders Discharge Orders: Discharge Order (Routine); Ordered 01/25/20 Ordered By: Barry Roman DS: Diagnosis Discharge Diagnosis (1) Urolithiasis: Status: Chronic
--- NOTE | 2020-01-25 08:28 | W.PM.OP ---
Date of service: 01/25/20 Time of Service: 08:28 Operative Note Operative Note DATE OF PROCEDURE: 01/25/20 PRE-OP DIAGNOSIS: Left ureteral stricture POST-OP DIAGNOSIS: same PROCEDURE: Cystoscopy, remove left ureteral stent, left ureteroscopy SURGEON: Barry Roman ANESTHESIA: MAC ESTIMATED BLOOD LOSS: 0 PATHOLOGY: none sent COMPLICATIONS: None Patient was transported to: same day Patient's condition: stable Indications: This is a 49-year-old gentleman who previously underwent a left ureteroscopy for a ureteral stone. He initially did well, but then had symptoms consistent with renal colic. On repeat ureteroscopy, we found a strictured area at his previous stone site. We dilated the area and left a ureteral stent. He comes in now to have his stent removed and to have repeat ureteroscopy to ensure the strictured area remains open. Findings: No residual ureteral stricture Inflammatory changes at the ureteral orifice Procedure Description: The patient was brought to the operating room on 01/25/2020. After successful induction of monitored anesthesia care, he was placed in the dorsal lithotomy position. His genitalia is prepped and draped. 2% Xylocaine jelly was instilled into the urethra to act as a local anesthetic. A 22 Iranian rigid cystoscope was passed through the urethra into the bladder. The urethra and bladder were inspected with the 30 degrees lens. The pendulous, bulbous and membranous urethra was all appeared normal with no strictures. The prostatic urethra showed minimal lateral lobe enlargement. The bladder neck was then entered. The left ureteral stent was visualized and was grasped and alligator forceps. The stent was brought out to the level of the urethral meatus. A Glidewire was then advanced through the lumen of the stent and the stent was removed leaving the wire in place. The flexible ureteroscope was then advanced over the wire. The scope was introduced into the left ureteral orifice and advanced. Inflammatory changes were seen at the ureteral orifice and distal ureter. The previously identified strictured area appeared open. No ureteral stones were seen. The ureteroscope and wire were then removed. The patient tolerated this procedure well
[2020-01-25] MEDS: Phenazopyridine 200 MG TAB PO (08:43)
[2020-01-25 09:01] VITALS: BP 109/72; PULSE 61; RESP 16; TEMP 36.3; O2SAT 99
== END 2020-01-25 09:35 | disposition home or self-care (01) ==
PROVIDERS: PCP Family Medicine; Visit Provider Urology
PROC: (CPT 52351; principal; 2020-01-25 08:45)
DX: N13.5 Crossing vessel and stricture of ureter without hydronephrosis (principal)
CPT/HCPCS: 52351; NC; J0690; J1885; J2001; J2405; J2704

== ENCOUNTER 2020-01-29 13:36 | Outpatient (CLI) | payer BC, SELFPAY ==
--- NOTE | 2020-01-29 11:30 | DI.US_ITS ---
EXAM: US RENAL CLINICAL HISTORY: Flank pain, s/p surgery, R10.9. TECHNIQUE: Pichardo scale, color and spectral Doppler were used. COMPARISON: US US RENAL from 12/16/2019 FINDINGS: Renal size in cm: Right: 1.6. Left: 12.8. Echogenicity: Normal. Hydronephrosis: No. Cyst or mass: No. Nephrolithiasis: 2 echogenic foci in the superior pole of the left kidney are again seen and stable. Other findings: None. Bladder:Normal. Ureteral jets: Right: Visualized and unremarkable. Left: Visualized and unremarkable. Prevoid vol:60 cc Postvoid vol:The patient was unable to void. Prostate: 19 cc Renal color flow: Symmetric and within normal limits. IMPRESSION: No hydronephrosis. DATA REPOSITORY:
== END 2020-01-29 13:56 ==
PROVIDERS: PCP Family Medicine; Visit Provider Urology
DX: R10.9 Unspecified abdominal pain (principal)
CPT/HCPCS: 76770

== ENCOUNTER 2020-03-14 02:05 | Outpatient (CLI) | payer BC, SELFPAY ==
--- NOTE | 2020-03-14 | DI.US_ITS ---
EXAM: US RENAL CLINICAL HISTORY: r/o hydronephrosis after ureteroscopy,CALCULUS OF PROXIMAL RT URETER,N20.1. TECHNIQUE: Pichardo scale, color and spectral Doppler were used. COMPARISON: CT CT ABDOMEN PELVIS W from 11/05/2019 CR XR ABDOMEN FLAT PLATE from 12/31/2019 US US RENAL from 01/29/2020 FINDINGS: Renal size in cm: Right: 11.5 left: 11.5 Echogenicity: Normal Hydronephrosis: No Cyst or mass: No Nephrolithiasis: No Other findings: None Bladder:Normal Prevoid vol: 417 cc Postvoid vol:32 cc Prostate volume 13 cc IMPRESSION: No evidence of hydronephrosis. No urinary tract calculi are visible. DATA REPOSITORY:
== END 2020-03-14 02:25 ==
PROVIDERS: PCP Family Medicine; Visit Provider Urology
DX: N20.1 Calculus of ureter (principal)
CPT/HCPCS: 76770

== ENCOUNTER 2020-03-28 13:12 | Emergency (ER) | payer BC, SELFPAY ==
[2020-03-28 13:24] VITALS: BP 123/82; PULSE 72; RESP 16; TEMP 36.4; O2SAT 98
[2020-03-28] MEDS: Inhaler, Assist Device 1 EACH MC (14:46)
--- NOTE | 2020-03-28 14:50 | ED.GENADUL_ITS ---
Discharge Plan Disposition Patient Disposition: HOME Condition: Stable Discharge Details Clinical Impression: URI (upper respiratory infection) Primary Care Provider: Ebenezer Rodríguez ED Provider: Patrick Akhtar Home Meds and New Rx's Prescriptions: Continued vitamin B complex [B Complex 1] Tablet 1 tab PO DAILY RF: 0 magnesium 250 mg tablet 1,000 mg PO DAILY RF: 0 Adult Probiotic 3 billion cell capsule 3,000 mmu cells PO DAILY RF: 0 albuterol sulfate [Ventolin HFA] 90 mcg/actuation HFA aerosol inhaler 2 puff IH Q6H PRN (Reason: shortness of breath or wheezing) Qty: 8.5 RF: 0 ondansetron HCl 8 mg tablet 8 mg PO Q8H PRN (Reason: nausea and vomiting) Qty: 10 RF: 0 tamsulosin 0.4 mg capsule 0.4 mg PO DAILY Qty: 30 RF: 1 meclizine 25 MG tablet 25 mg PO TID PRNQty: 30 RF: 0 levothyroxine 50 mcg capsule 50 mcg PO DAILY Qty: 30 RF: 11 multivitamin 1 EACH tablet 1 tab PO DAILY RF: 0 cholecalciferol (vitamin D3) [Vitamin D3] 1,000 UNIT capsule 2 cap PO DAILY RF: 0 acetaminophen [Tylenol] 325 mg Tablet 650 mg PO ONCE PRNRF: 0 nortriptyline [Pamelor] 25 mg capsule 25 mg PO QHS RF: 0 Discharge Instructions Instructions: Albuterol (By breathing), Upper Respiratory Infection (ED) Additional Instructions: Please drink with your fluids and allow for plenty of rest. Use albuterol inhaler, 2 puffs with spacer inhaled every 4 hours as needed for shortness of breath or wheeze. A Covid test was performed today. Results are not immediately available. Please maintain self-isolation and quarantine until Covid testing is negative and you are cleared from quarantine by your primary care physician Please contact your primary care physician to arrange follow-up. Return to the ER for any worsening or new concerning symptoms. 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 Patient is saturating well, in no respiratory distress, hemodynamically stable, and afebrile. He does have intermittent cough on exam and posterior oropharyngeal erythema. Considered pharyngitis. Rapid strep test is negative. I discussed with patient chest x-ray to assess for other etiologies of chest discomfort and patient declined and provided informed refusal. Patient is low risk for Covid exposure but out of abundance of caution I will send Covid screening test. Patient was provided albuterol inhaler with spacer and administered initial dose in the ED. He does note that symptoms improved slightly with initial dose. On reassessment he remains saturating well in no respiratory distress. Plan for discharge with outpatient follow-up. Patient was encouraged to return to the ER for any worsening or new concerning symptoms. Medical screening exam was performed and patient was stable at discharge. HPI General Mode of arrival: ambulatory . Date/Time Provider Initiated Documentation: 03/28/20 13:34 . Limitations to Documentation: no limitations . Information obtained by: patient . HPI Narrative: 50-year-old male presents with chief complaint of sore throat. Patient notes sore throat started 2 days ago and has persisted. He states he has sinus congestion and frontal sinus headache. He also notes he has intermittent cough and some chest tightness that feels like reactive airway disease. Patient notes he used a old albuterol inhaler that did provide some improvement to his breathing. Symptoms started approximately 4 days ago. He denies associated fever. Patient denies recent travel. No known exposure to Covid. Related Data Home Medications Medication Instructions Recorded Confirmed meclizine 25 mg PO TID PRN #30 tab-cap 10/04/14 03/28/20 cholecalciferol (vitamin D3) 2 cap PO DAILY 09/09/15 03/28/20 [Vitamin D3] multivitamin 1 tab PO DAILY 09/09/15 03/28/20 magnesium 250 mg tablet 1,000 mg PO DAILY tab 02/23/19 03/28/20 vitamin B complex 1 tab PO DAILY 02/23/19 03/28/20 albuterol sulfate 90 mcg/actuation 2 puff IH Q6H PRN #8.5 gm 04/27/19 03/28/20 aerosol inhaler lactobacillus combination no.8 3 3,000 mmu cells PO DAILY 04/27/19 03/28/20 billion cell capsule levothyroxine 50 mcg capsule 50 mcg PO DAILY #30 cap 12/14/19 03/28/20 ondansetron HCl 8 mg tablet 8 mg PO Q8H PRN #10 tab 12/31/19 03/28/20 acetaminophen [Tylenol] 650 mg PO ONCE PRN 01/08/20 03/28/20 nortriptyline [Pamelor] 25 mg PO QHS 01/25/20 03/28/20 tamsulosin 0.4 mg capsule 0.4 mg PO DAILY #30 cap 01/29/20 03/28/20 Previous Rx's Medication Instructions Recorded albuterol sulfate 90 mcg/actuation 2 puff IH Q6H PRN #8.5 gm 04/27/19 aerosol inhaler levothyroxine 50 mcg capsule 50 mcg PO DAILY #30 cap 12/14/19 ondansetron HCl 8 mg tablet 8 mg PO Q8H PRN #10 tab 12/31/19 tamsulosin 0.4 mg capsule 0.4 mg PO DAILY #30 cap 01/29/20 Allergies Allergy/AdvReac Type Severity Reaction Status Date / Time erythromycin base AdvReac Intermediate Vomiting Verified 03/28/20 13:42 [Erythromycin Base] cigarette smoke Allergy Uncoded 03/28/20 13:42 General Stated Complaint: RespSymp YADY: 3 Review of Systems All systems reviewed & are unremarkable except as noted in HPI and below Constitutional Constitutional: Denies fever(s), Reports headache(s) and Denies weakness ENT Ears, Nose, Mouth, and Throat: Reports headache(s), Reports sinus pressure and Reports sore throat Respiratory Respiratory: Reports cough and Reports pain on inspiration Musculoskeletal Musculoskeletal: Denies numbness Neurologic Neurologic: Reports headache(s), Denies numbness, Denies sensory deficit and Denies weakness [facility] Medical History Depression (09/03/17) Diverticulosis of colon without diverticulitis per colonoscopy 09/14/09-Dr. Mcdermott Fracture of lumbar spine Gastroesophageal reflux disease (06/29/13) History of narcotic addiction does not want narcotics offered to him at any time Hypothyroid Hypothyroidism IBS (irritable bowel syndrome) Migraines Peripheral polyneuropathy PTSD (post-traumatic stress disorder) (09/03/17) Renal calculi TBI (traumatic brain injury) Surgical History History of right knee surgery History of shoulder surgery Family History Mother No problems noted. Father Diabetes Melanoma Heart disease Hyperlipidemia Sister Multiple sclerosis Substance abuse Brother Asthma Alcohol abuse Substance abuse Maternal Grandfather , 70 Alcohol abuse Cancer Paternal Grandfather , in his 50s Tuberculosis Maternal Grandmother , 72 Alcohol abuse Asthma Cancer Paternal Grandmother Cancer Son Asthma Daughter Depression Anxiety Social History Smoking/Tobacco Use Status: Former Tobacco Use Tobacco: How many years used: 10 Second Hand Exposure: Yes Alcohol Intake: former Drug use: Current Sobriety Substance use type: former substance user Details: 26 years clean per pt Caregiver/Support person: No Household members: spouse and children Housing: house Communication Needs: None Do you need help understanding health information?: Never Pets and animals: Yes Pets and animals: dog(s) Sexually active: Yes Do you think of yourself as: straight/heterosexual Current gender identity: male What is your relationship status?: How often do you talk on the phone with friends or family?: once per week How often do you get together with friends or relatives?: once per week How often do you attend judaism or baptism services?: decline to answer Do you belong to any clubs or organized social groups?: no Panel score (0-1 are the most socially isolated patients): 1 What type of physical activity do you participate in: walking and other Details: PiYo Duration: < 15 minutes/day Frequency: 1-2 times per week Ilda/Mormonism: None Special ilda needs: No Seatbelt use: always Helmet use: Yes Helmet use: sometimes 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 Do you feel safe at home: Yes Do you feel safe in your relationship?: Yes Exam Const General: cooperative and no acute distress HENMT Mouth: moist mucous membranes Throat: no peritonsillar masses and posterior oropharynx abnormal erythema; no cobblstoning, no edema and no exudates Eyes Conjunctivae: normal conjunctivae Sclera: normal sclerae Neck Neck: trachea midline and supple Resp Auscultation: clear to auscultation bilaterally, no rales, no rhonchi and no wheezes Cardio Jugular venous pressure: no JVD Rate: regular rate and not tachycardic Rhythm: regular rhythm GI Palpation: soft, not firm, no guarding, no masses, not rigid and nontender Skin General skin exam: no rashes or lesions noted Neuro General: patient alert, patient awake, patient oriented x3 and tone normal Extrem General: no calf tenderness and no edema Psych Appearance: grossly normal Mental Status: mental status grossly normal Speech and Movement: speech and movement normal Course Vital Signs Vital signs: Vital Signs Temperature 36.4 C L 03/28/20 13:24 Pulse 72 03/28/20 13:24 Respiratory Rate 16 03/28/20 13:24 Blood Pressure 123/82 03/28/20 13:24 Pulse Oximetry 98 03/28/20 13:24 Temperature 36.4 C L 03/28/20 13:24 Temperature Source Skin 03/28/20 13:24 Pulse 72 03/28/20 13:24 Respiratory Rate 16 03/28/20 13:24 Respiratory Effort Non-Labored 03/28/20 13:40 Blood Pressure 123/82 03/28/20 13:24 Blood Pressure Position Standing 03/28/20 13:24 Pulse Oximetry 98 03/28/20 13:24 Oxygen Delivery Method Room Air 03/28/20 13:24 Oxygen Flow Rate 0 03/28/20 13:24 Pain Level 3 03/28/20 13:24 Comment 03/28/20 13:24 Lab/Test Results Lab/Test Results: 03/28/20 14:44 Pharynx Streptococcus Screen (NIMO) - Pending POC Strep Test-PAZ(Rapid) Start: 03/28/20 14:37 Freq: .Rapid Strep Test Status: Active Protocol: Document 03/28/20 14:44 MMQ (Rec: 03/28/20 14:44 MMQ [id number]) Strep test-PAZ(Rapid)-POC POC-Strep test-PAZ (Rapid) Negative POC-Strep test-PAZ (Rapid) Negative
[2020-03-30 00:16] LABS: Patient Race White; SARS-CoV-2 RNA Undetected (Undetected); SARS-CoV-2 Specimen Source Nasopharynx
--- NOTE | 2020-03-30 08:13 | NUR.NOTE ---
called and left message to return call to ED @[phone] 03/30/20.
--- NOTE | 2020-03-30 08:23 | NUR.NOTE ---
08:23 03/30/20 pt. called back, negative covid result findings relayed to patient.
== END 2020-03-28 15:19 | disposition home or self-care (01) ==
PROVIDERS: Emergency Provider Student in an Organized Health Care Education/Training Program; PCP Family Medicine
DX: J06.9 Acute upper respiratory infection, unspecified (principal); R09.81 Nasal congestion; Z03.818 Encounter for observation for suspected exposure to other biological agents ruled out
CPT/HCPCS: 87880; 99283; U0003; 87081

== ENCOUNTER 2020-07-01 04:44 | Outpatient (CLI) | payer BC, SELFPAY ==
--- NOTE | 2020-07-01 06:30 | DI.US_ITS ---
EXAM: US RENAL CLINICAL HISTORY: Flank pain,urolithiasis,n20.9 TECHNIQUE: Ultrasound of both kidneys performed using standard protocol. COMPARISON: US US RENAL from 03/14/2020 FINDINGS: RIGHT KIDNEY: Measures 10.5 cm in length. No cysts evident. Normal cortical thickness and corticomedullary differen tiation .No solid masses No intrarenal calculi nor hydronephrosis. LEFT KIDNEY: Measures 11.1 cm in length. There is small exophytic cyst measuring 10 x 9 millimeters. Normal bob ical thickness and corticomedullary differentiaion. No solids masses. Subtle suggestion of a 7 maru meter nonobstructive calculus in the superior pole URINARY BLADDER: Prevoid volume is 377 cc Postvoid volume is 42 cc No evidence of bladder mass nor diverticuli. Ureterovesical jets: Both identified and appear symmetrical IMPRESSION: 1. No significant ultrasound findings in the right kidney. 2. There appears to be a 6-7 millimeter nonobstructive calculus in the superior pole of the left kid kathleen. There are no calculi evident in the urinary bladder lumen.. DATA REPOSITORY:
== END 2020-07-01 05:04 ==
PROVIDERS: PCP Family Medicine; Visit Provider Nurse Practitioner Gerontology
DX: N20.0 Calculus of kidney (principal)
CPT/HCPCS: 76770

== ENCOUNTER 2020-07-20 10:19 | Outpatient (CLI) | payer BC, SELFPAY ==
--- NOTE | 2020-07-20 11:38 | DI.RAD_ITS ---
EXAM: 2D digital imaging was performed. CLINICAL HISTORY: left flank pain Z87.442 HX URINARY CALCULI. COMPARISON: CR XR ABDOMEN FLAT PLATE from 12/31/2019 TECHNIQUE: Supine views of the abdomen performed. FINDINGS: The visualized lung bases are clear. Portions of the kidneys are obscured by overlying bowel. No de finite urinary tract calculi are identified. Stable phleboliths are seen in the pelvis. The bowel g as pattern is nonspecific. No acute osseous abnormalities identified. IMPRESSION: No urinary tract calculi. DATA REPOSITORY: RADIATION DOSE DELIVERED:
== END 2020-07-20 10:20 ==
LOC: DI 07-21 10:21
PROVIDERS: PCP Family Medicine; Visit Provider Nurse Practitioner Gerontology
DX: Z87.442 Personal history of urinary calculi (principal); R10.9 Unspecified abdominal pain
CPT/HCPCS: 74018

== ENCOUNTER 2020-07-25 17:17 | Outpatient (REF) | payer BC, SELFPAY ==
[2020-07-27 17:29] LABS: COVID-19 RT-PCR UVMMC Result Negative (Negative)
== END 2020-07-25 17:18 | disposition home or self-care (01) ==
LOC: LBN 17:17
PROVIDERS: PCP Family Medicine; Visit Provider Nurse Practitioner Family
DX: G43.909 Migraine, unspecified, not intractable, without status migrainosus (principal)
CPT/HCPCS: U0003

== ENCOUNTER 2020-07-29 08:51 | Day surgery (SDC) | payer BC, SELFPAY ==
[2020-07-29] VITALS (8 sets, daily range): BP systolic 89–126; BP diastolic 56–89; PULSE 54–74; RESP 16–21; TEMP 36.1–36.4; O2SAT 95–99
[2020-07-29] MEDS: Lactated Ringers 1,000 ML 80 ML IV (09:31)
--- NOTE | 2020-07-29 09:59 | W.PM.HP.N ---
Date of service: 07/29/20 Time of Service: 09:59 Assessment and Plan Assessment and plan (1) Urolithiasis: Status: Chronic Assessment and plan: We will plan a cystoscopy, left retrograde pyelogram, left flexible ureteroscopy and holmium laser lithotripsy of his symptomatic left kidney stone. History of Present Illness History of Present Illness Chief Complaint: Left renal stone Narrative: This is a 50-year-old gentleman who has a history of calcium oxalate monohydrate stones on the left side. He currently has asymptomatic left upper pole stone that measures approximately 7 mm. He presents for ureteroscopic stone manipulation. He is not having any gross hematuria. He has no fever or chills. He does complain of some left flank pain. Review of Systems Narrative: No fevers or chills No dysphasia. Recent vision changes while having migraine COLÓN On thyroid replacement medication. No diabetes No shortness of breath, cough or hemoptysis No chest pain or palpitations Hx IBS and GERD. No nausea, vomiting, hepatitis, ulcers, jaundice No seizures, strokes No bleeding disorders or anemia No gout PFSH Medical History Depression (09/03/17) Diverticulosis of colon without diverticulitis per colonoscopy 09/14/09-Dr. Mcdermott Fracture of lumbar spine Gastroesophageal reflux disease (06/29/13) History of narcotic addiction does not want narcotics offered to him at any time Hypothyroid Hypothyroidism IBS (irritable bowel syndrome) Migraines Peripheral polyneuropathy PTSD (post-traumatic stress disorder) (09/03/17) Renal calculi TBI (traumatic brain injury) Pt. states he did not have a TBI, but a was concussion Surgical History History of right knee surgery History of shoulder surgery Family History Mother No problems noted. Father Diabetes Melanoma Heart disease Hyperlipidemia Sister Multiple sclerosis Substance abuse Brother Asthma Alcohol abuse Substance abuse Maternal Grandfather , 70 Alcohol abuse Cancer Paternal Grandfather , in his 50s Tuberculosis Maternal Grandmother , 72 Alcohol abuse Asthma Cancer Paternal Grandmother Cancer Son Asthma Daughter Depression Anxiety Social History Smoking/Tobacco Use Status: Former Tobacco Use Quit Date: 06/17/10 Tobacco: How many years used: 10 Second Hand Exposure: Yes Smoking risk assessment performed?: Yes Alcohol Intake: former Drug use: Current Sobriety Substance use type: former substance user Details: 26 years clean per pt Caregiver/Support person: No Household members: spouse and children Housing: house Communication Needs: None Do you need help understanding health information?: Never Pets and animals: Yes Pets and animals: dog(s) Sexually active: Yes Do you think of yourself as: straight/heterosexual Current gender identity: male What is your relationship status?: How often do you talk on the phone with friends or family?: once per week How often do you get together with friends or relatives?: once per week How often do you attend jain or jewish services?: decline to answer Do you belong to any clubs or organized social groups?: no Panel score (0-1 are the most socially isolated patients): 1 What type of physical activity do you participate in: walking and other Details: PiYo Duration: < 15 minutes/day Frequency: 1-2 times per week Ilda/Episcopal: None Special ilda needs: No Seatbelt use: always Helmet use: Yes Helmet use: sometimes Drive intox or ride w/intox 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 Meds Home Medications and Allergies Home Medications Medication Instructions Recorded Confirmed Type meclizine 25 mg PO TID PRN #30 tab-cap 10/04/14 07/27/20 History cholecalciferol (vitamin D3) 2 cap PO DAILY 09/09/15 07/29/20 History [Vitamin D3] multivitamin 1 tab PO DAILY 09/09/15 07/29/20 History magnesium 250 mg tablet 1,000 mg PO DAILY tab 02/23/19 07/29/20 History vitamin B complex 1 tab PO DAILY 02/23/19 07/29/20 History albuterol sulfate 90 mcg/actuation 2 puff IH Q6H PRN #8.5 gm 04/27/19 07/27/20 Rx aerosol inhaler lactobacillus combination no.8 3 3,000 mmu cells PO DAILY 04/27/19 07/29/20 History billion cell capsule levothyroxine 50 mcg capsule 50 mcg PO DAILY #30 cap 12/14/19 07/29/20 Rx ondansetron HCl 8 mg tablet 8 mg PO Q8H PRN #10 tab 12/31/19 07/29/20 Rx acetaminophen [Tylenol] 650 mg PO ONCE PRN 01/08/20 07/29/20 History nortriptyline [Pamelor] 25 mg PO DAILY 01/25/20 07/29/20 History tamsulosin 0.4 mg capsule 0.4 mg PO DAILY #90 cap 06/27/20 07/29/20 Rx sumatriptan succinate 50 mg tablet 50 mg PO ONCE PRN #60 tab 07/25/20 07/27/20 Rx potassium citrate-citric acid 1 packet PO DAILY 07/27/20 07/29/20 History Allergies Allergy/AdvReac Type Severity Reaction Status Date / Time erythromycin base AdvReac Intermediate Vomiting Verified 07/29/20 09:07 [Erythromycin Base] cigarette smoke Allergy Uncoded 07/29/20 09:07 Exam Const General: cooperative and no acute distress Neck Neck: supple Resp Effort & Inspection: normal respiratory effort Auscultation: clear to auscultation bilaterally Cardio Rate: regular rate Rhythm: regular rhythm GI Palpation: soft and no masses Neuro General: patient alert, patient awake and patient oriented x3 Results Last Vital Signs Temp 36.3 C L 07/29/20 09:00 Pulse 74 07/29/20 09:00 Resp 18 07/29/20 09:00 BP 126/89 07/29/20 09:00 Pulse Ox 99 07/29/20 09:00 COVID-19 Screening Have you, or household traveled for leisure in last 14 days?: No Had IN PERSON contact w/suspected or confirmed C-19 person: No
[2020-07-29] MEDS: Lidocaine 2% Jelly 6 ML SYR (12:36)
[2020-07-29] MEDS: ceFAZolin 2 GM/50 ML BAG IVPB (12:37)
[2020-07-29] MEDS: Omnipaque 300 MG/ML 50 ML BTL (12:38)
--- NOTE | 2020-07-29 13:14 | W.PM.DSUDISC ---
Discharge Plan Disposition Patient Disposition: HOME Condition: Stable Discharge Details Attending Provider: Barry Roman Primary Care Provider: Ebenezer Rodríguez Home Meds and New Rx's Prescriptions: New oxybutynin chloride 5 mg tablet 5 mg PO Q8H PRN (Reason: bladder spasms) Qty: 10 RF: 0 No Action vitamin B complex [B Complex 1] Tablet 1 tab PO DAILY RF: 0 magnesium 250 mg tablet 1,000 mg PO DAILY RF: 0 Adult Probiotic 3 billion cell capsule 3,000 mmu cells PO DAILY RF: 0 albuterol sulfate [Ventolin HFA] 90 mcg/actuation HFA aerosol inhaler 2 puff IH Q6H PRN (Reason: shortness of breath or wheezing) Qty: 8.5 RF: 0 ondansetron HCl 8 mg tablet 8 mg PO Q8H PRN (Reason: nausea and vomiting) Qty: 10 RF: 0 sumatriptan succinate [Imitrex] 50 mg tablet 50 mg PO ONCE PRN (Reason: migraine headache) Qty: 60 RF: 0 meclizine 25 MG tablet 25 mg PO TID PRNQty: 30 RF: 0 levothyroxine 50 mcg capsule 50 mcg PO DAILY Qty: 30 RF: 11 tamsulosin 0.4 mg capsule 0.4 mg PO DAILY Qty: 90 RF: 1 multivitamin 1 EACH tablet 1 tab PO DAILY RF: 0 cholecalciferol (vitamin D3) [Vitamin D3] 1,000 UNIT capsule 2 cap PO DAILY RF: 0 acetaminophen [Tylenol] 325 mg Tablet 650 mg PO ONCE PRNRF: 0 nortriptyline [Pamelor] 25 mg capsule 25 mg PO DAILY RF: 0 potassium citrate-citric acid 3,300-1,002 mg Packet 1 packet PO DAILY RF: 0 Discharge Instructions Additional Instructions: Followup appt in 4 to 6 weeks with renal ultrasound on day of appt No need to strain urine Activity:: Activity as Tolerated Shower/Bathe:: 24 hours Diet:: As Tolerated Discharge Orders Discharge Orders: Discharge Order (Routine); Ordered 07/29/20 Ordered By: Barry Roman DS: Diagnosis Discharge Diagnosis (1) Urolithiasis: Status: Chronic
--- NOTE | 2020-07-29 13:15 | DI.RAD_ITS ---
EXAM: XR RETROGRADE IN OR CLINICAL HISTORY: LEFT KIDNEY STONE. TECHNIQUE: Fluoroscopy was provided for the referring physician for guidance with performing injecti on procedure. COMPARISON: No exams were available for comparison FINDINGS: Fluoroscopy was provided for Dr. Roman for guidance with retrograde examination. Please see procedur e note for details. FLUORO TIME: 18.9 seconds RADIATION DOSE DELIVERED:
--- NOTE | 2020-07-29 13:24 | ROE_ITS ---
Date of service: 07/29/20 Time of Service: 13:24 Operative Note Operative Note DATE OF PROCEDURE: 07/29/20 PRE-OP DIAGNOSIS: Left renal stone POST-OP DIAGNOSIS: same PROCEDURE: cystoscopy, left retrograde pyelogram, left flexible ureteroscopy ANESTHESIA: other (General without airway) ESTIMATED BLOOD LOSS: 10 PATHOLOGY: none sent COMPLICATIONS: None Patient was transported to: PACU Patient's condition: stable Indications: This is a 50-year-old gentleman who was seen previously for ureteral stones. His stones chemical composition has been calcium oxalate monohydrate. He has been monitored with renal ultrasound. There was a questionable left upper pole stone measuring up to 7 mm. He was having some left flank pain but no hydronephrosis. He presents for ureteroscopy. Findings: No large renal stones identified Procedure Description: The patient was brought to the operating room on . After successful induction of general anesthesia, he was placed in the dorsal lithotomy position. His genitalia was prepped and draped. He was given a dose of preoperative IV antibiotics. 2% Xylocaine jelly was instilled into the urethra to act as a local anesthetic. A 22 Trinidadian rigid cystoscope was passed through the urethra into the bladder. The urethra and bladder were inspected with a 30 degree lens. The pendulous, bulbous and membranous urethra's appeared normal with no strictures. The prostatic urethra showed mild lateral lobe enlargement with no significant median lobe. The left ureteral orifice was identified and was cannulated with a 6 Trinidadian access catheter. A retrograde film was obtained by injecting Omnipaque through the access catheter under fluoroscopic guidance. No ureteral strictures or filling defects were identified. The calyces were outlined. A Glidewire was then advanced through the access catheter and the catheter was removed. A dual-lumen catheter was advanced over the wire and a second wire was positioned. We chose one of the wires as a working wire and the other is a safety wire. A ureteral access sheath was then advanced over one of the wires. We saved to the other wire as a safety wire. The flexible ureteroscope was passed through the access sheath to the renal pelvis. Using a retrograde pyelogram has a mapping tool, we were able to inspect each of the calyces. 2 small calcifications were seen in one of the upper pole calyces but no large stone fragment was identified. We were able to flush the 2 small calcifications out without requiring holmium laser lithotripsy. With minimal trauma during the procedure, we elected not to place a ureteral stent. The access sheath and flexible ureteroscope were withdrawn and the rem ainder of the ureter was inspected. No ureteral injuries were identified. The patient tolerated this procedure well with no complications. He was taken to the recovery room in stable condition.
[2020-07-29] MEDS: Ketorolac 15 MG/ML VIAL (14:01)
[2020-07-29] MEDS: Phenazopyridine 200 MG TAB PO (14:27)
[2020-07-29] MEDS: Oxybutynin 5 MG TAB PO (14:27)
== END 2020-07-29 15:00 | disposition home or self-care (01) ==
PROVIDERS: PCP Family Medicine; Visit Provider Urology
PROC: (CPT 52352; principal; 2020-07-29 10:30)
DX: N20.0 Calculus of kidney (principal)
CPT/HCPCS: 52352; NC; 74420; J0690; J1885; J2250; J2405; Q9967

== ENCOUNTER 2021-05-18 02:16 | Outpatient (CLI) | payer BC, SELFPAY ==
[2021-05-18 12:56] LABS: Hemoglobin A1C 5.4 % (<5.7)
[2021-05-18 14:15] LABS: ALT 114 U/L (16-63); AST 57 U/L (15-37); Alkaline Phosphatase 91 U/L (46-116); Anion Gap 10.4 mmol/L (3-11); BUN 21 mg/dL (7-18); Bilirubin, Total 0.4 mg/dL (0.2-1.0); CO2 26.6 mmol/L (21.0-32.0); CREATININE 1.1 mg/dL (0.70-1.30); Calculated LDL 124 mg/dL (<100); Chloride 103 mmol/L (98-107); Cholesterol 231 mg/dL (<200); Glucose 117 mg/dL (74-106); HDL Cholesterol 34 mg/dL (40-60); Sodium 140 mmol/L (136-145); TSH 3.26 uIU/mL (0.36-3.74); Total Protein 7.6 g/dL (6.4-8.2); Triglyceride 369 mg/dL (<150)
== END 2021-05-18 02:17 | disposition home or self-care (01) ==
LOC: LBO 02:16
PROVIDERS: PCP Nurse Practitioner Family; Visit Provider Nurse Practitioner Family
DX: E03.9 Hypothyroidism, unspecified; Z13.1 Encounter for screening for diabetes mellitus; Z13.220 Encounter for screening for lipoid disorders
CPT/HCPCS: 36415; 80053; 80061; 83036; 84443

== ENCOUNTER 2021-07-07 14:39 | Outpatient (REF) | payer BC, SELFPAY ==
[2021-07-09 15:23] LABS: COVID-19 RT-PCR UVMMC Result Negative (Negative)
== END 2021-07-07 14:40 | disposition home or self-care (01) ==
LOC: LBN 14:39
PROVIDERS: PCP Nurse Practitioner Family; Visit Provider Nurse Practitioner Family
DX: Z20.822 Contact with and (suspected) exposure to COVID-19 (principal)
CPT/HCPCS: U0003

== ENCOUNTER 2021-07-27 18:10 | Outpatient (REF) | payer BC, SELFPAY ==
[2021-07-29 11:50] LABS: COVID-19 RT-PCR UVMMC Result Negative (Negative)
== END 2021-07-27 18:11 | disposition home or self-care (01) ==
LOC: LBN 18:10
PROVIDERS: PCP Nurse Practitioner Family; Visit Provider Nurse Practitioner Family
DX: Z20.822 Contact with and (suspected) exposure to COVID-19 (principal)
CPT/HCPCS: U0003

== ENCOUNTER 2021-08-17 07:36 | Emergency (ER) | payer BC, SELFPAY ==
[2021-08-17 07:48] VITALS: BP 137/93; PULSE 67; RESP 16; TEMP 36.4; O2SAT 96
--- NOTE | 2021-08-17 08:15 | DI.US_ITS ---
Exam(s) US SCROTUM EXAM: US SCROTUM CLINICAL HISTORY: L testicle pain, r/o torsion, epididymitis, hernia. TECHNIQUE: Scrotal ultrasound performed using grayscale, color-flow and spectral Doppler analysis. COMPARISON: No exams were available for comparison FINDINGS: Right testicle: 5 x 2.5 x 4.4 cm Left testicle: 4.2 x 2.5 x 4 cm Echogenicity: Normal. Contour: Smooth. Mass: None seen. 5 millimeter cyst upper pole left testicle. Microlithiasis: None. Hydrocele: Small bilateral hydrocele. Variocele: None. Hernia: No peristalsing bowel loop identified. Epididymis: Normal. DOPPLER: Color: Symmetric and uniform, no hyperemia. Duplex: Bilateral testicular arterial waveforms visualized. IMPRESSION: Small bilateral hydroceles. No evidence of torsion, epididymitis or hernia. 5 millimeter left testi cular cysts could represent tunica albuginea cyst.. DATA REPOSITORY:
--- NOTE | 2021-08-17 08:30 | W.ED.GENAD ---
Discharge Plan Disposition Patient Disposition: HOME Condition: Stable Discharge Details Clinical Impression: Strain of left groin Primary Care Provider: Kaushik Mccauley ED Provider: Radha Kuhn Home Meds and New Rx's Prescriptions: New ketorolac 10 mg tablet 10 mg PO Q6H PRN (Reason: pain) 5 Days Qty: 20 0RF gabapentin 300 mg capsule 300 mg PO TID Qty: 20 0RF Rx Instructions: You can take 1-2 tabs three times daily for pain Continued vitamin B complex [B Complex 1] Tablet 1 tab PO DAILY 0RF magnesium 250 mg tablet 1,000 mg PO DAILY 0RF albuterol sulfate [Ventolin HFA] 90 mcg/actuation HFA aerosol inhaler 2 puff IH Q6H PRN (Reason: shortness of breath or wheezing) Qty: 8.5 0RF prasterone (dhea) [DHEA] 25 mg capsule 25 mg PO DAILY 0RF Lactobacillus acidophilus 100 mg (1 billion cell) capsule 100 mg PO DAILY Qty: 90 3RF loratadine [Claritin] 10 mg tablet 10 mg PO DAILY Qty: 90 4RF ondansetron HCl 8 mg tablet 8 mg PO Q8H PRN (Reason: nausea and vomiting) Qty: 10 0RF sumatriptan succinate [Imitrex] 50 mg tablet 50 mg PO ONCE PRN (Reason: migraine headache) Qty: 60 0RF Rx Instructions: Take 1 tab at onset of headache; if no relief may repeat 1 tab after at least 2 hrs tamsulosin 0.4 mg capsule 0.4 mg PO DAILY Qty: 90 1RF sertraline 100 mg tablet 100 mg PO DAILY Qty: 90 3RF meclizine 25 MG tablet 25 mg PO TID PRNQty: 30 0RF levothyroxine 50 mcg capsule 50 mcg PO DAILY Qty: 90 4RF ropinirole 0.5 mg tablet 0.5 mg PO QHS Qty: 90 3RF Rx Instructions: administer 1-3 hours before bedtime cholecalciferol (vitamin D3) [Vitamin D3] 1,000 UNIT capsule 2 cap PO DAILY 0RF acetaminophen [Tylenol] 325 mg Tablet 650 mg PO ONCE PRN0RF potassium citrate-citric acid 3,300-1,002 mg Packet 1 packet PO DAILY 0RF ibuprofen 200 mg Tablet 200 mg PO Q6H PRN0RF Discharge Instructions Instructions: Groin Strain (ED) Additional Instructions: Apply ice to the affected area several times daily for 20 minutes at a time. Take the Toradol as needed and directed for pain. Take the gabapentin as directed. Follow-up with Dr. Roman in the office in the next 2 weeks. Return immediately to the emergency department if you develop any worsening or new concerning symptoms. Stand Alone Forms: Work Release Referrals: Barry Roman MD [ [facility] STAFF PHYSICIAN] - Discharge Data Discharge Date/Time-TO BE ENTERED AT DEPARTURE: 08/17/21 12:51 Discharge Physician: Radha Kuhn Medical Decision Making 51-year-old male presents with left testicular pain with radiation to his left groin since yesterday, worse with ambulation and getting progressively worse. Patient appears uncomfortable but nontoxic. His vitals are within normal limits. He has mild edema noted to the left testicle but no erythema. He has significant tenderness to palpation of the L testicle. Differential diagnosis includes testicular torsion, epididymitis, hernia, groin strain. Will place an IV, bolus IV fluids, screening labs, urinalysis, testicular ultrasound and consider CT if pain worsens and ultrasound unremarkable. Labs and imaging reviewed and negative for acute findings. Incidental finding of fat containing umbilical and right inguinal hernia discussed with Dr. Blair and no acute recommendations. Case discussed with Dr. Roman who recommends treatment with no more than 5 days gabapentin 300 mg TID and will follow up with patient in the office. Patient with Dr. Roman's list. Pt given a dose of Toradol here. He feels comfortable going home. Usual and customary return precautions given prior to discharge. Medical Records Medical records reviewed: Yes I reviewed the patient's medical records. Imaging Data Radiologic Study: Radiologist's impression: ?US SCROTUM CLINICAL HISTORY: ? L testicle pain, r/o torsion, epididymitis, hernia.? TECHNIQUE:? Scrotal ultrasound performed using grayscale, color-flow and spectral Doppler analysis. COMPARISON:? No exams were available for comparison FINDINGS: Right testicle: 5 x 2.5 x 4.4 cm Left testicle: 4.2 x 2.5 x 4 cm Echogenicity: Normal. Contour: Smooth. Mass: None seen.? 5 millimeter cyst upper pole left testicle. Microlithiasis: None. Hydrocele: Small bilateral hydrocele. Variocele: None. Hernia: No peristalsing bowel loop identified. Epididymis: Normal. DOPPLER: Color: Symmetric and uniform, no hyperemia. Duplex: Bilateral testicular arterial waveforms visualized. IMPRESSION: Small bilateral hydroceles.? No evidence of torsion, epididymitis or hernia.? 5 millimeter left testicular cysts could represent tunica albuginea cyst.. CT ABDOMEN ? PELVIS W CLINICAL HISTORY: ? L testicle/groin pain,rad to L hip,r/o hernia.? TECHNIQUE:? Imaging Protocol: Axial computed tomography images with coronal and sagittal reformatted images were created and reviewed CONTRAST MATERIAL:? Intravenous: Omnipaque 350 Contrast volume:100 ml Oral:? no COMPARISON:? CT CT ABDOMEN ? PELVIS WO/W from 09/09/2020 FINDINGS: ABDOMEN: Lung Bases: Normal where visualized. Liver: Normal density. No measurable mass. Gallbladder and biliary tract: No radiodense calculus or dilation.? Pancreas: Normal density, no abnormal calcifications or inflammatory process. Spleen: Normal. Kidneys: Normal size, contour and axis. No radiodense stones or obstructive uropathy. No masses seen. Adrenal glands: No masses seen. Abdominal Aorta: Abdominal portion non-dilated. PELVIS:? Bladder:? No gross wall thickening. No calculi.No focal mass. Bowel: No obstruction or bowel wall thickening. Appendix normal.? Minimal diverticulosis. Peritoneal cavity: No ascites, collection or mesenteric inflammatory response. Bones: Within normal limits for age.? Reproductive organs: Within normal limits.? Small bilateral hydroceles.? Vasectomy clips.? Lymph nodes: Unremarkable.? Soft tissues: No left inguinal hernia..? Small amount of fat in the right inguinal canal.? Inguinal canals are otherwise unremarkable.? Small amount of fat at the umbilicus.. Impression: Small fatty containing umbilical hernia.? Minimal fatty containing right inguinal hernia. ? Lab Data Lab results reviewed: Yes I reviewed the patient's lab results. Labs: Laboratory Tests Range/Units 08/17/21 08/17/21 08/17/21 08:29 08:29 11:22 WBC (4.4-10.8) 10^3/uL 6.85 RBC (4.36-5.78) 10^6/uL 4.88 Hgb (13.5-17.5) g/dL 14.4 Hct (40.0-50.0) % 43.6 MCV (80-95) fL 89.3 MCH (27.0-33.0) pg 29.5 MCHC (32.0-36.0) % 33.0 RDW (11.8-14.1) % 12.2 Plt Count (130-400) 10^3/uL 225 MPV (8.0-11.0) fL 9.2 Immature Gran % 0.3 Neutrophils % 54.2 Lymphocytes % 34.5 Monocytes % 9.1 Eosinophils % 1.3 Basophils % 0.6 Nucleated RBC % % 0 Absolute Neutrophils (1.2-6.7) 10^3/uL 3.72 Absolute Lymphocytes (1.2-3.4) 10^3/uL 2.36 Absolute Monocytes (0.1-0.8) 10^3/uL 0.62 Absolute Eosinophils (0.0-0.7) 10^3/uL 0.09 Absolute Basophils (0.0-0.2) 10^3/uL 0.04 Sodium (136-145) mmol/L 142 Potassium (3.5-5.1) mmol/L 3.9 Chloride (98-107) mmol/L 108 H Carbon Dioxide (21.0-32.0) mmol/L 23.4 Anion Gap (3-11) mmol/L 10.6 BUN (7-18) mg/dL 20 H Creatinine (0.70-1.30) mg/dL 0.9 Estimated GFR/1.73 m2 (mL/min/1.73m2) >= 60.00 Glucose (74-106) mg/dL 104 Calcium (8.5-10.1) mg/dL 8.5 Total Bilirubin (0.2-1.0) mg/dL 0.5 AST (15-37) U/L 27 ALT (16-63) U/L 50 Alkaline Phosphatase (46-116) U/L 69 Total Protein (6.4-8.2) g/dL 7.5 Albumin (3.4-5.0) g/dL 3.8 Urine Color (Yellow) Yellow Urine Clarity (Clear) Clear Urine pH (5-8) 6.0 Ur Specific Mcnabb (1.005-1.025) 1.015 Urine Protein (Negative) mg/dL Negative Urine Ketones (Negative) mg/dL Negative Urine Blood (Negative) Small H Urine Nitrite (Negative) Negative Urine Bilirubin (Negative) Negative Urine Urobilinogen (Up TO 0.2) EU/dL 0.2 Ur Leukocyte Esterase (Negative) Negative Urine RBC (0-2) HPF 0-2 Urine WBC (0-5) HPF Negative Ur Epithelial Cells (Negative) HPF Negative Urine Crystals (Negative) HPF Negative Urine Bacteria (Negative) HPF Negative Urine Casts (Negative) LPF Negative Urine Mucus (Negative) Negative Ur Culture Indicated? No Urine Glucose (Negative) mg/dL Negative HPI General Mode of arrival: ambulatory. Date/Time Provider Initiated Documentation: 08/17/21 08:03. Limitations to Documentation: no limitations. Information obtained by: patient. HPI Narrative: Patient is a 51-year-old male who presents with left testicular pain since yesterday afternoon, now radiating to his left hip and worse with ambulation. Patient states the pain started around 3 PM yesterday and feels sharp and stabbing in nature. He states he had intercourse with his and the pain has become significantly worse since then now radiating to his left hip and is worse specifically with any movement and walking. He took 800 mg of ibuprofen this morning without relief. He admits to nausea at times due to the pain but denies any vomiting. He denies any fever, abdominal pain, dysuria, hematuria, urgency or frequency. Patient states he has been drinking plenty of water and did not think he urinated since last night. He states he lifted a 50 pound crate at work yesterday but does not recall any specific injury and states this is not unusual for him. Related Data Home Medications Medication Instructions Recorded Confirmed meclizine 25 mg tablet 25 mg PO TID PRN #30 tab-cap 10/04/14 08/17/21 cholecalciferol (vitamin D3) 25 2 cap PO DAILY 09/09/15 08/17/21 mcg (1,000 unit) capsule (Vitamin D3) magnesium 250 mg tablet 1,000 mg PO DAILY tab 02/23/19 08/17/21 vitamin B complex (B Complex 1) 1 tab PO DAILY 02/23/19 08/17/21 albuterol sulfate 90 mcg/actuation 2 puff IH Q6H PRN #8.5 gm 04/27/19 08/17/21 aerosol inhaler (Ventolin HFA) ondansetron HCl 8 mg tablet 8 mg PO Q8H PRN #10 tab 12/31/19 08/17/21 acetaminophen 325 mg tablet 650 mg PO ONCE PRN 01/08/20 08/17/21 (Tylenol) sumatriptan succinate 50 mg tablet 50 mg PO ONCE PRN #60 tab 07/25/20 08/17/21 (Imitrex) potassium citrate-citric acid 1 packet PO DAILY 07/27/20 08/17/21 3,300 mg-1,002 mg oral packet tamsulosin 0.4 mg capsule 0.4 mg PO DAILY #90 cap 10/28/20 08/17/21 levothyroxine 50 mcg capsule 50 mcg PO DAILY #90 cap 12/28/20 08/17/21 Lactobacillus acidophilus 100 mg 100 mg PO DAILY #90 cap 04/17/21 08/17/21 (1 billion cell) capsule prasterone (dhea) 25 mg capsule 25 mg PO DAILY 04/17/21 08/17/21 (DHEA) loratadine 10 mg tablet (Claritin) 10 mg PO DAILY #90 tab 05/19/21 08/17/21 ropinirole 0.5 mg tablet 0.5 mg PO QHS #90 tab 06/05/21 08/17/21 sertraline 100 mg tablet 100 mg PO DAILY #90 tab 07/07/21 08/17/21 gabapentin 300 mg capsule 300 mg PO TID #20 cap 08/17/21 ibuprofen 200 mg tablet 200 mg PO Q6H PRN 08/17/21 08/17/21 ketorolac 10 mg tablet 10 mg PO Q6H PRN 5 Days #20 tab 08/17/21 Previous Rx's Medication Instructions Recorded albuterol sulfate 90 mcg/actuation 2 puff IH Q6H PRN #8.5 gm 04/27/19 aerosol inhaler (Ventolin HFA) ondansetron HCl 8 mg tablet 8 mg PO Q8H PRN #10 tab 12/31/19 sumatriptan succinate 50 mg tablet 50 mg PO ONCE PRN #60 tab 07/25/20 (Imitrex) tamsulosin 0.4 mg capsule 0.4 mg PO DAILY #90 cap 10/28/20 levothyroxine 50 mcg capsule 50 mcg PO DAILY #90 cap 12/28/20 Lactobacillus acidophilus 100 mg 100 mg PO DAILY #90 cap 04/17/21 (1 billion cell) capsule loratadine 10 mg tablet (Claritin) 10 mg PO DAILY #90 tab 05/19/21 ropinirole 0.5 mg tablet 0.5 mg PO QHS #90 tab 06/05/21 sertraline 100 mg tablet 100 mg PO DAILY #90 tab 07/07/21 gabapentin 300 mg capsule 300 mg PO TID #20 cap 08/17/21 ketorolac 10 mg tablet 10 mg PO Q6H PRN 5 Days #20 tab 08/17/21 Allergies Allergy/AdvReac Type Severity Reaction Status Date / Time erythromycin base AdvReac Intermediate Vomiting Verified 08/17/21 07:58 [Erythromycin Base] cigarette smoke Allergy Uncoded 08/17/21 07:58 General Stated Complaint: Male Reproductive Problem YADY: 2 Review of Systems All systems reviewed & are unremarkable except as noted in HPI and below Constitutional Constitutional: Reports as per HPI, Denies chills and Denies fever(s) Eyes Eyes: Denies blurry vision ENT Ears, Nose, Mouth, and Throat: Denies dizziness, Denies sore throat and Denies throat swelling Cardiovascular Cardiovascular: Denies chest pain and Denies dyspnea Respiratory Respiratory: Denies cough and Denies dyspnea Gastrointestinal Gastrointestinal: Denies abdominal pain, Denies diarrhea, Reports nausea and Denies vomiting Genitourinary Genitourinary: Denies hematuria, Denies dysuria and Reports testicular pain (L side) Musculoskeletal Musculoskeletal: Denies back pain and Denies numbness Integumentary/Breasts Skin/Breast: Denies lesions and Denies rash Neurologic Neurologic: Denies dizziness, Denies localized weakness and Denies numbness Allergic/Immunologic Allergic/Immunologic: Denies throat swelling PFSH All Active Problems (Updated 08/17/21 @ 12:40 by Radha Kuhn DO) Strain of left groin (Acute) Abdominal pain (Acute) Allergies (Acute) Right-sided sensorineural hearing loss (Acute) Low back pain (Acute) Urolithiasis (Chronic) Pelvic pain in male (Acute) LLQ abdominal pain (Acute) History of narcotic addiction (Acute) does not want narcotics offered to him at any time Hypothyroidism (Chronic) IBS (irritable bowel syndrome) (Chronic) Peripheral polyneuropathy (Acute) Depression (Chronic 09/03/17) Diverticulosis of colon without diverticulitis (Chronic) per colonoscopy 09/14/09-Dr. Mcdermott Gastroesophageal reflux disease (Chronic 06/29/13) Migraines (Chronic) PTSD (post-traumatic stress disorder) (Chronic 09/03/17) Medical History Fracture of lumbar spine Hypothyroid Renal calculi TBI (traumatic brain injury) Pt. states he did not have a TBI, but a was concussion Surgical History History of right knee surgery History of shoulder surgery Family History Mother No problems noted. Father Diabetes Melanoma Heart disease Hyperlipidemia Sister Multiple sclerosis Substance abuse Brother Asthma Alcohol abuse Substance abuse Maternal Grandfather , 70 Alcohol abuse Cancer Paternal Grandfather , in his 50s Tuberculosis Maternal Grandmother , 72 Alcohol abuse Asthma Cancer Paternal Grandmother Cancer Son Asthma Daughter Depression Anxiety Social History Smoking/Tobacco Use Status: Former Tobacco Use Quit Date: 06/17/10 Tobacco: How many years used: 10 Second Hand Exposure: Yes Smoking risk assessment performed?: Yes Alcohol Intake: former Drug use: Current Sobriety Substance use type: former substance user Details: 26 years clean per pt Caregiver/Support person: No Household members: spouse and children Housing: house Communication Needs: None Do you need help understanding health information?: Never Pets and animals: Yes Pets and animals: dog(s) Sexually active: Yes Do you think of yourself as: straight/heterosexual Current gender identity: male What is your relationship status?: How often do you talk on the phone with friends or family?: once per week How often do you get together with friends or relatives?: once per week How often do you attend mormonism or jewish services?: decline to answer Do you belong to any clubs or organized social groups?: no Panel score (0-1 are the most socially isolated patients): 1 What type of physical activity do you participate in: walking and other Details: PiYo Duration: < 15 minutes/day Frequency: 1-2 times per week Ilda/Jehovah'S Witness: None Special ilda needs: No Seatbelt use: always Helmet use: Yes Helmet use: sometimes Drive 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 or 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 Do you feel safe at home: Yes Do you feel safe in your relationship?: Yes Exam Const General: cooperative, healthy appearing and no acute distress HENMT Head: normal to inspection Ears: hearing grossly normal bilaterally and external ears normal Mouth: oral mucosae normal Eyes General: appearance normal, both eyes and all related structures Neck Neck: normal visual inspection Resp Effort & Inspection: normal respiratory effort and able to speak in complete sentences Auscultation: clear to auscultation bilaterally Cardio Rate: regular rate Rhythm: regular rhythm GI Inspection: normal to inspection and no visible pulsation Palpation: soft, not firm, no guarding, no hernias, no masses, not rigid and nontender Auscultation: hypoactive bowel sounds Penis: normal penis Testes: no masses, no testicular mass, testicular swelling on the left (minimal appearing, skin indurated) and testicular tenderness on the left (significant to light touch) Other: no erythema of testicles noted Skin General skin exam: no rashes or lesions noted Neuro General: patient alert, patient awake and patient oriented x3 Motor: muscle tone normal throughout Extrem General: normal to inspection and full ROM Psych Appearance: grossly normal Affect: normal affect Course Vital Signs Vital signs: Vital Signs Temperature 97.5 F L 08/17/21 07:48 Pulse 67 08/17/21 07:48 Respiratory Rate 16 08/17/21 07:48 Blood Pressure 137/93 H 08/17/21 07:48 Pulse Oximetry 96 08/17/21 07:48 Temperature 97.5 F L 08/17/21 07:48 Pulse 67 08/17/21 07:48 Respiratory Rate 16 08/17/21 07:48 Respiratory Effort Non-Labored 08/17/21 07:52 Blood Pressure 137/93 H 08/17/21 07:48 Blood Pressure Position Sitting 08/17/21 07:48 Pulse Oximetry 96 08/17/21 07:48 Oxygen Delivery Method Room Air 08/17/21 07:48 Oxygen Flow Rate 0 08/17/21 07:48 Pain Level 9 08/17/21 07:48
[2021-08-17 08:40] LABS: Abs Immature Grans 0.02 10^3/uL (0.0-0.06); Absolute Basophil Count 0.04 10^3/uL (0.0-0.2); Absolute Eosinophil Count 0.09 10^3/uL (0.0-0.7); Absolute Lymphocyte Count 2.36 10^3/uL (1.2-3.4); Absolute Monocyte Count 0.62 10^3/uL (0.1-0.8); Absolute Neutrophil Count 3.72 10^3/uL (1.2-6.7); Basophils % 0.6; Eosinophils % 1.3; HCT 43.6 % (40.0-50.0); HGB 14.4 g/dL (13.5-17.5); Immature Grans % 0.3; Lymphocytes % 34.5; MCH 29.5 pg (27.0-33.0); MCV 89.3 fL (80-95); MPV 9.2 fL (8.0-11.0); Monocytes % 9.1; Neutrophils % 54.2; Nucleated RBC 0 %; Platelet Count 225 10^3/uL (130-400); RBC 4.88 10^6/uL (4.36-5.78); RDW 12.2 % (11.8-14.1); RDW-SD 40.3 fL; WBC 6.85 10^3/uL (4.4-10.8)
[2021-08-17] MEDS: Normal Saline 1,000 ML 1000 ML IV (08:41)
[2021-08-17] MEDS: Normal Saline Flush 10 ML SYR IVP (08:41)
[2021-08-17] MEDS: ACETAMINOPHEN 1,000 MG/100 ML BTL 400 MG IVPB (08:42)
[2021-08-17 08:56] LABS: ALT 50 U/L (16-63); AST 27 U/L (15-37); Albumin 3.8 g/dL (3.4-5.0); Alkaline Phosphatase 69 U/L (46-116); Anion Gap 10.6 mmol/L (3-11); BUN 20 mg/dL (7-18); Bilirubin, Total 0.5 mg/dL (0.2-1.0); CO2 23.4 mmol/L (21.0-32.0); CREATININE 0.9 mg/dL (0.70-1.30); Calcium 8.5 mg/dL (8.5-10.1); Chloride 108 mmol/L (98-107); Glucose 104 mg/dL (74-106); Potassium 3.9 mmol/L (3.5-5.1); Sodium 142 mmol/L (136-145); Total Protein 7.5 g/dL (6.4-8.2)
[2021-08-17] MEDS: Omnipaque 350 MG/ML 100 ML BTL IJ (09:54)
--- NOTE | 2021-08-17 10:00 | DI.CT_ITS ---
Exam(s) CT ABDOMEN PELVIS W EXAM: CT ABDOMEN PELVIS W CLINICAL HISTORY: L testicle/groin pain,rad to L hip,r/o hernia. TECHNIQUE: Imaging Protocol: Axial computed tomography images with coronal and sagittal reformatted images were created and reviewed CONTRAST MATERIAL: Intravenous: Omnipaque 350 Contrast volume:100 ml Oral: no COMPARISON: CT CT ABDOMEN PELVIS WO/W from 09/09/2020 FINDINGS: ABDOMEN: Lung Bases: Normal where visualized. Liver: Normal density. No measurable mass. Gallbladder and biliary tract: No radiodense calculus or dilation. Pancreas: Normal density, no abnormal calcifications or inflammatory process. Spleen: Normal. Kidneys: Normal size, contour and axis. No radiodense stones or obstructive uropathy. No masses seen. Adrenal glands: No masses seen. Abdominal Aorta: Abdominal portion non-dilated. PELVIS: Bladder: No gross wall thickening. No calculi.No focal mass. Bowel: No obstruction or bowel wall thickening. Appendix normal. Minimal diverticulosis. Peritoneal cavity: No ascites, collection or mesenteric inflammatory response. Bones: Within normal limits for age. Reproductive organs: Within normal limits. Small bilateral hydroceles. Vasectomy clips. Lymph nodes: Unremarkable. Soft tissues: No left inguinal hernia.. Small amount of fat in the right inguinal canal. Inguinal c anals are otherwise unremarkable. Small amount of fat at the umbilicus.. Impression: Small fatty containing umbilical hernia. Minimal fatty containing right inguinal hernia. RADIATION DOSE DELIVERED: 1,119.47mGy.cm Total DLP DATA REPOSITORY: All CT scans at this facility are submitted to the National Radiology Data Registry (NRDR) Dose Index Registry (DIR) with the [employer] (A[employer]). RADIATION OPTIMIZATION: All CT scans at this facility use at least one of these dose optimization te chniques: automated exposure control; mA and/or kV adjustment per patient size (includes targeted exa ms where dose is matched to clinical indication); or iterative reconstruction.
[2021-08-17 11:32] LABS: Bilirubin Negative (Negative); Blood Small (Negative); Clarity Clear (Clear); Glucose Negative (Negative); Ketones Negative (Negative); Leukocyte Esterase Negative (Negative); Nitrite Negative (Negative); Specific Gravity 1.015 (1.005-1.025); Urobilinogen 0.2 EU/dL (Up TO 0.2)
[2021-08-17 11:42] LABS: Bacteria Negative HPF (Negative); C & S Indicated? No; Casts Negative LPF (Negative); Crystals Negative HPF (Negative); Epithelial Cells Negative HPF (Negative); Mucus Negative (Negative); RBC 0-2 HPF (0-2); WBC Negative HPF (0-5)
--- NOTE | 2021-08-17 11:53 | NUR.NOTE ---
Addendum entered and electronically signed by Vidya Mccloud 08/18/21 11:00: Referral faxed to [facility]. Original Note: Nursing Note: Referral faxed [facility] for follow up of left testicular pain within the next couple of weeks. Viridiana Salinas
[2021-08-17 12:03] VITALS: BP 105/75; PULSE 53; TEMP 36.5; O2SAT 100
[2021-08-17] MEDS: Ketorolac 10 MG TAB PO (12:20)
[2021-08-17 12:49] VITALS: BP 105/75; PULSE 53; RESP 18; TEMP 36.5; O2SAT 100
== END 2021-08-17 12:51 | disposition home or self-care (01) ==
PROVIDERS: Emergency Provider Physician Assistant; PCP Nurse Practitioner Family
DX: S39.011A Strain of muscle, fascia and tendon of abdomen, initial encounter (principal); X58.XXXA Exposure to other specified factors, initial encounter; N50.812 Left testicular pain
CPT/HCPCS: 36415; 80053; 96361; 96365; 99285; 74177; 76870; 81003; 81015; 85025; 99284; J0131; J3490

== ENCOUNTER 2022-04-19 13:07 | Outpatient (CLI) | payer BC, SELFPAY ==
--- NOTE | 2022-04-19 13:00 | RT.EKG_ITS ---
APPROVED REPORT Exam: Resting ECG Reason for Exam: chest discomfort Patient Location: O HR:64 bpm ECG Measurements Heart Rate 64 AXIS MT 207 P 61 QRSd 98 QRS -35 QT 392 T 32 QTc 405 Conclusion Sinus rhythm...normal P axis, V-rate 50- 99 Borderline prolonged MT interval...MT >202, V-rate 50- 90 Probable left atrial enlargement...P >50mS, <-0.10mV V1 Left axis deviation...QRS axis (-30,-90) I have reviewed and I agree with the emergency room physician's ECG interpretation.
== END 2022-04-19 13:08 | disposition home or self-care (01) ==
LOC: DI.CM 13:07
PROVIDERS: PCP Nurse Practitioner Family; Visit Provider Nurse Practitioner Family
DX: R07.89 Other chest pain (principal); R94.31 Abnormal electrocardiogram [ECG] [EKG]
CPT/HCPCS: 93010

== ENCOUNTER 2022-04-19 13:36 | Emergency (ER) | payer BC, SELFPAY ==
[2022-04-19] VITALS (30 sets, daily range): BP systolic 108–132; BP diastolic 67–92; PULSE 62–99; RESP 12–38; TEMP 37.2; O2SAT 92–98
--- NOTE | 2022-04-19 13:30 | RT.EKG_ITS ---
APPROVED REPORT Exam: Resting ECG Reason for Exam: chest pain Patient Location: E HR:64 bpm ECG Measurements Heart Rate 64 AXIS MN 206 P 57 QRSd 93 QRS -30 QT 394 T 32 QTc 407 Conclusion Sinus rhythm...normal P axis, V-rate 60- 99 Borderline prolonged MN interval...MN >202, V-rate 50- 90 Probable left atrial enlargement...P >50mS, <-0.10mV V1 Left axis deviation...QRS axis (-30,-90) I have reviewed and interpreted ECG and agree with software generated interpretation. There are no significant changes compared to prior EKG performed on 04/19/2022 at 13:09.
--- OUTSIDE RECORDS SUMMARY | 2022-04-19 13:40 | XMS_ITS | Encounter Summary ---
:1970 Author Organization [facility] [place] [address] Care Team Providers Name Role Phone Romeo Corbin MD Primary Care Provider Reason for Visit - Closed Specialty Diagnoses / Procedures Referred By Contact Refer red To Contact Procedures Romeo Corbin MD Film Library- Storage Only [address] [facility] 1 DX Abdomen [place], [place] [address] Referral ID Status Reason Start Date Expiration Date Visits Requ ested Visits Authorized [id number] Closed 10/31/2020 10/31/2021 1 1 Encounter Details Date Type Department Care Team Description 07/20/2020 Ancillary Procedure Radiology Library at Romeo Corbin MD [facility] [address] [address] [place], [place] [phone] (Wo rk) [phone] Social History Tobacco Use Types Packs/Day Years Used Date Never Smoker Smokeless Tobacco: Never Used Sex Assigned at Date Recorded Not on file documented as of this encounter Plan of Treatment Not on filedocumented as of this encounter Procedures Procedure Name Priority Date/Time Associated Diagnosis Comme nts FILM LIBRARY Routine 07/20/2020 12:00 AM Results for this STORAGE ONLY DX EST procedure ar e in ABDOMEN the results section. documented in this encounter Results Film Library- Storage Only DX Abdomen (07/20/2020 12:00 AM EST) Specimen (Source) Anatomical Location Collection Method / Collectio n Time Received Time / Laterality Volume Narrative RAD - 10/31/2020 9:49 AM EDT This exam is auto-finalizing. It's purpo se is for storage only. Romeo Corbin MD IMG FILM LIBRARY ORDERABLES Performing Organization Address City/State/ZIP Code Phon e Number RAD [place], [place] documented in this encounter Visit Diagnoses Not on filedocumented in this encounter Care Teams Account Development Specialist Relationship Specialty Start Date End Date Romeo Corbin MD PCP - General 09/23/[address] [place] [address] documented as of this encounter
--- OUTSIDE RECORDS SUMMARY | 2022-04-19 13:40 | XMS_ITS ---
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 Problem Dysphonia 784.49 Active 92900689 Problem Throat pain 784.1 Active 03932271 3 ALLERGIES Substance Reaction Event Type Date Status cigarette smoke Unknown Non Drug Allergy Jan, Active ENCOUNTERS Encounter Location Date Diagnosis Gastroenterology [address] [place] [address] 14 Feb, [address] [place] [id number] [facility] [address] [place] [address] 15 Jan, [address] R63.4 ; Anorexia R63.0 ; [place], [place] Nausea and vomit ing, [id number] unspecified vomi ting type R11.2 ; Change i n bowel habits R19.4 ; Hematochezia K92 .1 ; Dyspepsia R10.13 and Gastroesophageal reflux disease, unspeci fied whether esophagi tis present K21.9 [facility] [address] [place] [address] 15 Mar, [address] [place], [place] [id number] [facility] [address] Jun, Mu sculocutaneous nerve [address] lesion 354.9 and [place], [place]-Read syndrome [id number] 353.[address] Jun, GERD (gastr oesophageal [facility], [address] PO ref lux disease) [address] [place], [place] [phone] [address] Apr, [facility], [address] [place], [place] [phone] [address] Apr, Throat pain 784.1 and [facility], [address] PO Dys phonia 784.49 [address] [place], [place] [id number] [address] Apr, Otolaryngology [address] [place], [place] [id number] [address] Apr, Otolaryngology [address] [place], [place] [id number] [address] Apr, Otolaryngology [address] [place], [place] [id number] [address] Apr, Throat pain [address] Dysphonia 784.49 [place], [place] [id number] [facility] [address] Jan, Mu sculocutaneous nerve [address] lesion 354.9 and [place], [place]-Read syndrome [id number] 353.5 [facility] [address] Nov, [place] noneuropathy [address] [place], [place] [phone] [facility] [address] October, [address] [place], [place] [phone] IMMUNIZATIONS No Known Immunizations SOCIAL HISTORY Never Assessed REASON FOR REFERRAL FUNCTIONAL STATUS PLAN OF CARE Activity Details Follow Up 2 Weeks after EGD and colono scopy Reason:follow up EGD and colonoscopy Future/Pending Procedure EGD [id number] Future/Pending Procedure COLONOSCOPY AND BIOPSY 81 VITAL SIGNS Height 70 in in 2022-01-29 Height 70 in in 2013-06-29 Height 6 ft in 2013-05-04 Height N/A in 2013-02-10 Height 6 ft in 2012-12-08 Weight 212 lbs 2022-01-29 Weight 200 lbs 2013-06-29 Weight 194 lbs 2013-05-04 Weight 200 lb 8 oz lbs 2013-02-10 Weight 204 lbs 2012-12-08 Temperature 96.6 degrees Fahrenheit 2022-01-29 Heart Rate 60 /min 2022-01-29 Heart Rate 57 /min 2013-05-04 Heart Rate 80 /min 2013-02-10 Heart Rate 62 /min 2012-12-08 Oximetry 95 2022-01-29 BMI 30.42 kg/m2 2022-01-29 BMI 28.69 kg/m2 2013-06-29 BMI 26.31 kg/m2 2013-05-04 BMI 27.19 kg/m2 2013-02-10 BMI 27.66 kg/m2 2012-12-08 Blood pressure systolic 118 mm Hg 2022-01-29 Blood pressure diastolic 86 mm Hg 2022-01-29 MEDICATIONS Medication Instructions Dosage Frequency Start End Duration Statu s Date Date Vitamin D 1000 Twice a day Activ e Unit Multivitamins as directed Active rOPINIRole HCl Orally Once a 1 tablet 1 24h 30 day(s ) Active 0.5 MG day to 3 hours before bedtime Flomax 0.4 MG Orally Once a 1 capsule 24h 30 day(s) Active day DHEA 50 MG as directed Active levothyroxine orally once a 24h Acti ve 50mcg day Motrin IB 200 MG Orally qhs 2 tablets Ac tive with food Protonix 40 MG Orally Once a 1 tablet 30 24h 14 Feb, day( s) Active day minutes 2021 before largest meal of the day PROCEDURES Procedure Date Ordered Result Body Site MUSC TEST DONE W/N TEST COMP Feb 10, 2013 DIAGNOSTIC FLEXIBLE LARYNGOSCOPY Jun 29, 2013 DIAGNOSTIC FLEXIBLE LARYNGOSCOPY May 04, 2013 NRV CNDJ TEST 7-8 STUDIES Feb 10, 2013 RESULTS Name Result Date Reference Range CT NECK W CONTRAST REASON FOR VISIT GI- FOLLOW UP EGD/COLO, GI-COLO/EGD, Increased severity of symptoms, GI - nausea, wt loss, bloating,blood in stool, diarrhea, constipation, Dr. Galindo Referral - return to PCP , ENT 2 mo f/u, [facility] f/u right brachialis wasting., ENT 2 mo f/u; CT results [facility] conult review laryngeal fx, CARROL 3 mo f/u, waiting for results of CT, CT prior auth, [facility] consult, ENT [facility] throat pain, [facility] emg, [facility] per [place], consult and EMG , [facility] R UE , change appt time Insurance Providers [facility] Patient Patient Patient Patient Patient Subscriber Subscriber Subscriber Group Insurance Plan Plan Plan Plan ID Relationship Address Phone Name Date of ID Name Date of No Type Insurance Insurance Insurance Coverage to Subscriber Address Phone Name Dates [facility] [address] [facility] - self Som 1970 DO NOT [facility] DO CASANDRA [facility] ([place] (Write Off) [place] [address] Off) [place] [phone] [place] self [place] 1970 [id number] [address] [address]
--- OUTSIDE RECORDS SUMMARY | 2022-04-19 13:40 | XMS_ITS | Encounter Summary ---
:1970 Author Organization [facility] [place] [address] Care Team Providers Name Role Phone Romeo Corbin MD Primary Care Provider Reason for Visit - Closed Specialty Diagnoses / Procedures Referred By Contact Refer red To Contact Procedures Romeo Corbin MD Film Library- Storage Only [address] [facility] Ultrasound Study [place], [place] [address] Referral ID Status Reason Start Date Expiration Date Visits Requ ested Visits Authorized [id number] Closed 10/31/2020 10/31/2021 1 1 Encounter Details Date Type Department Care Team Description 08/30/2020 Ancillary Procedure Radiology Library at Romeo Corbin MD [facility] [address] [address] [place], [place] [phone] (Wo rk) [phone] Social History Tobacco Use Types Packs/Day Years Used Date Never Smoker Smokeless Tobacco: Never Used Sex Assigned at Date Recorded Not on file documented as of this encounter Plan of Treatment Not on filedocumented as of this encounter Procedures Procedure Name Priority Date/Time Associated Comments Diagnosis FILM LIBRARY STORAGE Routine 08/30/2020 12:00 AM Results for this ONLY ULTRASOUND EDT procedure ar e in STUDY the results section. documented in this encounter Results Film Library- Storage Only Ultrasound Study (08/30/2020 12:00 AM EDT) Specimen (Source) Anatomical Location Collection Method / Collectio n Time Received Time / Laterality Volume Narrative RAD - 10/31/2020 9:52 AM EDT This exam is auto-finalizing. It's purpo se is for storage only. Romeo Corbin MD IMG FILM LIBRARY ORDERABLES Performing Organization Address City/State/ZIP Code Phon e Number RAD [place], [place] documented in this encounter Visit Diagnoses Not on filedocumented in this encounter Care Teams Single Needle Operator Relationship Specialty Start Date End Date Romeo Corbin MD PCP - General 09/23/[address] [place] [address] documented as of this encounter
--- OUTSIDE RECORDS SUMMARY | 2022-04-19 13:40 | XMS_ITS | Continuity of Care Document ---
:1970 Author Organization [facility] Address [address] [place] [address] Care Team Providers Name Role Phone ELISHA GARCIA Primary Care Physician Encounter [facility] NBR [id number] Date(s): 04/05/22 - 04/05/22 [facility] [address] [place], [place] [address] Encounter Diagnosis Gastroesophageal reflux disease (Discharge Diagnosis) - 04/05/22 IBS - Irritable bowel syndrome (Discharge Diagnosis) - 04/05/22 Diarrhea (Discharge Diagnosis) - 04/05/22 Nausea (Discharge Diagnosis) - 04/05/22 Discharge Disposition: Home or Self Care Attending Physician: Jennifer Thorpe APRN Attending Physician: Jennifer Thorpe APRN Allergies, Adverse Reactions, Alerts Substance Reaction Severity Status Cigarette smoke Unknown Active Assessment and Plan Future Scheduled TestsRadiologyCT Abdomen and Pelvis w/ Contrast 04/05/22 Functional Status 04/05/22 Other exposure to Infectious Disease None Medications DHEA 50 mg oral tablet 50 mg = 1 tab, Oral, Daily, # 30 tab, 0 Refill(s) Start Date: 03/19/22 Status: Ordereddicyclomine 10 mg oral capsule 20 mg = 2 cap, Oral, QID, # 240 cap, 1 Refill(s), Pharmacy: [facility] #[id number], 182.88, cm,03/20/22 15:31:00 EDT, Height/Length Dosing, 95.25, kg, 03/20/22 15:31:00 EDT, Weight Dosing Start Date: 04/05/22 Stop Date: 06/04/22 Status: OrderedFlomax 0.4 mg oral capsule 0.4 mg = 1 cap, Oral, Daily, # 30 cap, 0 Refill(s) Start Date: 03/19/22 Status: Orderedlevothyroxine 50 mcg (0.05 mg) oral tablet 50 mcg = 1 tab, Oral, Daily, # 30 tab, 0 Refill(s) Start Date: 03/19/22 Status: Orderedomeprazole 40 mg oral delayed release capsule 40 mg = 1 cap, Oral, Daily, # 30 cap, 0 Refill(s) Start Date: 03/19/22 Status: OrderedrOPINIRole 0.5 mg oral tablet 0.5 mg = 1 tab, Oral, TID, # 90 tab, 0 Refill(s) Start Date: 03/19/22 Status: Orderedsertraline 150 mg oral capsule 150 mg = 1 cap, Oral, Daily, swallow whole, # 30 cap, 0 Refill(s) Start Date: 04/05/22 Status: OrderedZofran 8 mg oral tablet 8 mg = 1 tab, Oral, every 6 hr, PRN nausea/vomiting, X 30 days, # 120 tab, 0 Refill(s), 05/05/22 10:56:00 EST, Pharmacy: [facility] #[id number], 182.88, cm, 03/20/22 15:31:00 EDT, Height/Length Dosing, 95.25, kg, 03/20/22 15:31:00 EDT, Weight Dosing Start Date: 04/05/22 Stop Date: 05/05/22 Status: Ordered Problem List Condition Confirmation Course Effective Dates Status Health I nformant Status Connective tissue Confirmed Active disease1 Diarrhea Confirmed Active Dysphonia Confirmed Active Gastroesophageal Confirmed Active reflux disease Abdominal pain, Confirmed Active generalized Hypothyroid Confirmed Active IBS - Irritable bowel Confirmed Active syndrome Dyspepsia Confirmed Active Kidney stone Confirmed Active Laryngeal trauma2 Confirmed Active Loss of appetite Confirmed Active Mononeuropathy Confirmed Active Musculocutaneous nerve Confirmed Active lesion Nausea Confirmed Active Neuralgic amyotrophy Confirmed Active Pain in throat Confirmed Active Unintentional weight Confirmed Active loss 1pt states loose connective tissue/eypyay0eghstxrs crushed [id number].tv [id number] Procedures Procedure Date Related Diagnosis Body Site Status EGD AND COLONOSCOPY WITH BIOPSY1 03/22/22 Completed Colonoscopy, flexible; diagnostic, 03/21/22 Completed including collection of specimen(s) by brushing or washing, when performed (separate procedure) Esophagogastroduodenoscopy, flexible, 03/21/22 Completed transoral; diagnostic, including collection of specimen(s) by brushing or washing, when performed (separate procedure) Colonoscopy2 Completed Shoulder joint operations3 C ompleted Tibial tubercle aspiration C ompleted Vasectomy Completed 1auto-populated from documented surgical [id number] Vital Signs Most recent to oldest [Reference Range]: 1 Temperature Temporal Artery [36-38 Deg C] 36.6 Deg C (04/05/22 10:15 AM) Apical Heart Rate [60-100 bpm] 94 bpm (04/05/22 10:15 AM) Respiratory Rate [12-24 br/min] 22 br/min (04/05/22 10:15 AM) Blood Pressure [90-140/60-90 mmHg] 128/78 mmHg (04/05/22 10:15 AM) Weight 97.8 kg (04/05/22 10:15 AM) Weight Measured (lbs) 215.612 lb (04/05/22 10:15 AM) Social History Social History Type Response Tobacco Former tobacco user Tobacco Use:. Sex Patient Care team information PersonnelName: ELISHA GARCIA Address: Address: [address] [place] [address] [place]
--- OUTSIDE RECORDS SUMMARY | 2022-04-19 13:40 | XMS_ITS | Encounter Summary ---
:1970 Author Organization [facility] [place] [address] Care Team Providers Name Role Phone Romeo Corbin MD Primary Care Provider Reason for Visit Reason Onset Date Comments Results 02/17/2015 Encounter Details Date Type Department Care Team Description 02/17/2015 Telephone Urology at [facility] Ritesh Schroeder MD Results [facility] Maryann johnson [facility] [place] [address] UROLOGY DEPT [phone] [place], [place] [address] (Wo rk) Social History Tobacco Use Types Packs/Day Years Used Date Never Smoker Smokeless Tobacco: Never Used Sex Assigned at Date Recorded Not on file documented as of this encounter Miscellaneous Notes Telephone Encounter - Ritesh Schroeder MD - 02/17/2015 11:32 AM EDT I contacted the patient with the results of the CT scan, which did not show any related abnormalities. He states that he has had lower abdominal pain, and hasn't had a good BM for 2 weeks. I explained to him that he should contact his PCP to discuss the possible need for a colonoscopy. I also suggested to obtain a scrotal u/s since he is still experiencing testicular pain. documented in this encounter Plan of Treatment Not on filedocumented as of this encounter Visit Diagnoses Not on filedocumented in this encounter Care Teams Farm Machinery Assembler Relationship Specialty Start Date End Date Romeo Corbin MD PCP - General 09/23/[address] [place] [address] documented as of this encounter
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
--- OUTSIDE RECORDS SUMMARY | 2022-04-19 13:40 | XMS_ITS | Continuity of Care Document ---
:1970 Author Organization [facility] e Address [address] [place] [address] Encounter LTTL_[facility] FIN NBR [id number] Date(s): 03/22/22 - 03/22/22 [facility] [address], [place] [address] Encounter Diagnosis GERD (gastroesophageal reflux disease) (Discharge Diagnosis) - 03/22/22 Hematochezia (Discharge Diagnosis) - 03/22/22 Diarrhea (Discharge Diagnosis) - 03/22/22 Diffuse abdominal pain (Discharge Diagnosis) - 03/22/22 Discharge Disposition: Home-No Follow Up Attending Physician: Ernesto Foote MD Admitting Physician: Ernesto Foote MD Referring Physician: Ernesto Foote MD Allergies, Adverse Reactions, Alerts Substance Reaction Severity Status Cigarette smoke Unknown Active Assessment and Plan Future AppointmentsFuture Scheduled TestsRadiologyUS Abdomen Complete 03/29/22 Functional Status 03/22/22 Family Member Travel History No recent travel Recent Travel History No recent travel Other exposure to Infectious Disease None Medications DHEA 50 mg oral tablet 50 mg = 1 tab, Oral, Daily, # 30 tab, 0 Refill(s) Start Date: 03/19/22 Status: OrderedFlomax 0.4 mg oral capsule 0.4 [...] tab, 0 Refill(s) Start Date: 03/19/22 Status: Ordered Problem List Condition Confirmation Course Effective Dates Status Health Stat us Informant Connective tissue Confirmed Active disease1 Hypothyroid Confirmed Active IBS - Irritable Confirmed Active bowel syndrome Kidney stone Confirmed Active Laryngeal trauma2 Confirmed Active 1pt states loose connective tissue/[id number] crushed [employer] [id number] Procedures Procedure Date Related Diagnosis Body Site Status EGD AND COLONOSCOPY WITH BIOPSY1 03/22/22 Completed Colonoscopy2 Completed Shoulder joint operations3 C ompleted Tibial tubercle aspiration C ompleted Vasectomy Completed 1auto-populated from documented surgical [id number] Vital Signs Most recent to oldest 1 2 3 [Reference Range]: Temperature Temporal Artery 36.1 Deg C 36.0 Deg C 36.5 Deg C [36-38 Deg C] (03/22/22 2:18 PM) (03/22/22 1:26 PM) (03/22/22 10: 57 AM) Temperature Temporal Artery 96.98 Deg F (DegF) [97.3-100 Deg F] *LOW* (03/22/22 2:18 PM) Apical Heart Rate [60-100 43 bpm bpm] *LOW* (03/22/22 10:57 AM) Heart Rate Monitored [60-100 48 bpm 47 bpm 46 bpm bpm] *LOW* *LOW* *LOW* (03/22/22 2:18 PM) (03/22/22 2:00 PM) (03/22/22 1:4 5 PM) Respiratory Rate [12-24 16 br/min 16 br/min 16 br/mi n br/min] (03/22/22 2:18 PM) (03/22/22 2:00 PM) (03/22/22 1:4 5 PM) Blood Pressure [90-140/60-90 94/69 mmHg 91/65 mmHg 88/ 50 mmHg mmHg] (03/22/22 2:00 PM) (03/22/22 1:45 PM) *LOW* (03/22/22 1:26 PM ) Mean Arterial Pressure Cuff 78 mmHg 73 mmHg 65 m mHg (03/22/22 2:00 PM) (03/22/22 1:45 PM) (03/22/22 1:2 6 PM) Blood Pressure Location Left arm Left arm Left arm (03/22/22 1:45 PM) (03/22/22 1:26 PM) (03/22/22 10: 57 AM) Blood Pressure Method Automatic Automatic Automatic (03/22/22 1:45 PM) (03/22/22 1:26 PM) (03/22/22 10: 57 AM) Weight 95.250 kg (03/20/22 3:07 PM) Weight Dosing 95.250 kg (03/20/22 3:07 PM) Height 182.880 cm (03/20/22 3:07 PM) Height/Length Dosing 182.880 cm (03/20/22 3:07 PM) Social History Social History Type Response Tobacco Former tobacco user Tobacco Use:. Sex Hospital Discharge Instructions Patient Ajweqpqdx28/06/2022 12:29:45Colon PolypsColon Polyps Colon polyps are tissue growths inside the colon, which is part of the large intestine. They are oneof the types of polyps that can grow in the body. A polyp may be a round bump or a mushroom-shaped growth. You could have one polyp or more than one. Most colon polyps are noncancerous (benign). However, some colon polyps can become cancerous over time. Finding and removing the polyps early can help prevent this. What are the causes? The exact cause of colon polyps is not known. What increases the risk? The following factors may make you more likely to develop this condition: ??? Having a family history of colorectal cancer or colon polyps. ??? Being older than 45 years of age. ??? Being younger than 45 years of age and having a significant family history of colorectal cancer or colon polyps or a genetic condition that puts you at higher risk of getting colon polyps. ??? Having inflammatory bowel disease, such as ulcerative colitis or Crohn's disease. ??? Having certain conditions passed from parent to child (hereditary conditions), such as: ??? Familial adenomatous polyposis (FAP). ??? Rizvi syndrome. ??? Turcot syndrome. ??? Peutz???Jeghers syndrome. ??? MUTYH-associated polyposis (MAP). ??? Being overweight. ??? Certain lifestyle factors. These include smoking cigarettes, drinking too much alcohol, not getting enough exercise, and eating a diet that is high in fat and red meat and low in fiber. ??? Having had childhood cancer that was treated with radiation of the abdomen. What are the signs or symptoms? Many times, there are no symptoms. If you have symptoms, they may include: ??? Blood coming from the rectum during a bowel movement. ??? Blood in the stool (feces). The blood may be bright red or very dark in color. ??? Pain in the abdomen. ??? A change in bowel habits, such as constipation or diarrhea. How is this diagnosed? This condition is diagnosed with a colonoscopy. This is a procedure in which a lighted, flexible scope is inserted into the opening between the buttocks (anus) and then passed into the colon to examinethe area. Polyps are sometimes found when a colonoscopy is done as part of routine cancer screening tests. How is this treated? This condition is treated by removing any polyps that are found. Most polyps can be removed during acolonoscopy. Those polyps will then be tested for cancer. Additional treatment may be needed depending on the results of testing. Follow these instructions at home: Eating and drinking ??? Eat foods that are high in fiber, such as fruits, vegetables, and whole grains. ??? Eat foods that are high in calcium and vitamin D, such as milk, cheese, yogurt, eggs, liver, fish, and broccoli. ??? Limit foods that are high in fat, such as fried foods and desserts. ??? Limit the amount of red meat, precooked or cured meat, or other processed meat that you eat, such as hot dogs, sausages, de santiago, or meat loaves. ??? Limit sugary drinks. Lifestyle ??? Maintain a healthy weight, or lose weight if recommended by your health care provider. ??? Exercise every day or as told by your health care provider. ??? Do not use any products that contain nicotine or tobacco, such as cigarettes, e-cigarettes, and chewing tobacco. If you need help quitting, ask your health care provider. ??? Do not drink alcohol if: ??? Your health care provider tells you not to drink. ??? You are , may be , or are planning to become . ??? If you drink alcohol: ??? Limit how much you use to: ??? 0???1 drink a day for women. ??? 0???2 drinks a day for men. ??? Know how much alcohol is in your drink. In the [place] one drink equals one 12 oz bottle of beer (355 mL), one 5 oz glass of wine (148 mL), or one 1?? oz glass of hard liquor (44 mL). General instructions ??? Take lhrn-gtx-kmvpgph and prescription medicines only as told by your health care provider. ??? Keep all follow-up visits. This is important. This includes having regularly scheduled colonoscopies. Talk to your health care provider about when you need a colonoscopy. Contact a health care provider if: ??? You have new or worsening bleeding during a bowel movement. ??? You have new or increased blood in your stool. ??? You have a change in bowel habits. ??? You lose weight for no known reason. Summary ??? Colon polyps are tissue growths inside the colon, which is part of the large intestine. They areone type of polyp that can grow in the body. ??? Most colon polyps are noncancerous (benign), but some can become cancerous over time. ??? This condition is diagnosed with a colonoscopy. ??? This condition is treated by removing any polyps that are found. Most polyps can be removed during a colonoscopy. This information is not intended to replace advice given to you by your health care provider. Make sure you discuss any questions you have with your health care provider. Document Revised: 09/21/2020 Document Reviewed: 09/21/2020 [employer] Patient Education ?? 2021 [employer]. Follow Up [facility]03/14/2022 08:23:45With:Return to this practice Address:Unknown When:1 month
--- OUTSIDE RECORDS SUMMARY | 2022-04-19 13:40 | XMS_ITS | Encounter Summary ---
:1970 [place] [address] Care Team Providers Name Role Phone Unknown Primary Care Provider Unavailable Encounter Details Date Type Department Care Team Description 02/04/2014 Telephone Neurosurgery at [facility] Krishna Adan, [facility] [place] [address] [place] [address] [phone] (Wo rk) Social History Tobacco Use Types Packs/Day Years Used Date Never Assessed Sex Assigned at Date Recorded Not on file documented as of this encounter Miscellaneous Notes Telephone Encounter - Krishna Adan, - 02/04/2014 4:36 PM EDT I received a phone call from emergency room physician, Meggan Galindo, at [facility], in [facility], regarding this patient. Apparently 4 days ago he rode some amusement park rides that spun around in circles and upon getting off he had a very ataxic gait, felt very dizzy, and unsteady on his feet. He presented to the emergency room and had a plain CT scan of his brain. The CAT scan was normal. He continued to have an occipital headache and therefore had a CT angiogram of the head and neck in additionwhich was completely normal. The patient's symptoms are completely resolved when he is laying calmly, and are exacerbated when he gets up or moves his head. The emergency room physician said that his neurological exam is nonfocal. She said that she tried to transfer him to [facility] yesterday however beds were full. She said that their neurologist is off today. 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 I suggested doing the Tam maneuver, and Antivert, (instead of Reglan that he was given). I advised follow-up with their neurologist there tomorrow. The ER physician agrees with this plan. KRISHNA ADAN DO 02/04/2014 documented in this encounter Plan of Treatment Not on filedocumented as of this encounter Visit Diagnoses Not on filedocumented in this encounter Care Teams Writing Manager Relationship Specialty Start Date End Date Unknown PCP - General 02/03/14 09/22/14 None documented as of this encounter
--- OUTSIDE RECORDS SUMMARY | 2022-04-19 13:40 | XMS_ITS | Encounter Summary ---
:1970 Author Organization [facility] [place] [address] Care Team Providers Name Role Phone Romeo Corbin MD Primary Care Provider Encounter Details Date Type Department Care Team Description 02/09/2015 Telephone Urology at [facility] [place] [address] Social History Tobacco Use Types Packs/Day Years Used Date Never Smoker Smokeless Tobacco: Never Used Sex Assigned at Date Recorded Not on file documented as of this encounter Miscellaneous Notes Telephone Encounter - Maria Fernanda Craft I - 02/09/2015 11:00 AM EDT Spoke with patient's insurance for prior auth on [facility] at [facility]. Auth # [id number] valid for 60 days. documented in this encounter Plan of Treatment Not on filedocumented as of this encounter Visit Diagnoses Not on filedocumented in this encounter Care Teams Director Microbiology Relationship Specialty Start Date End Date Romeo Corbin MD PCP - General 09/23/[address] [place] [address] documented as of this encounter
--- OUTSIDE RECORDS SUMMARY | 2022-04-19 13:40 | XMS_ITS | Encounter Summary ---
:1970 Author Organization [facility] [address] Care Team Providers Name Role Phone Romeo Corbin MD Primary Care Provider Reason for Referral Diagnostic Test (Routine) - Closed Specialty Diagnoses / Procedures Referred By Contact Refer red To Contact Radiology Diagnoses Radiculopathy of lumbar region Lacey Gleason APRN [facility] Rad Mri Procedures MRI Lumbar Spine wo Contrast (Generic) [facility] [address] [facility] [place] [address] [place] [address] Referral ID Status Reason Start Date Expiration Date Visits V isits Requested Authorized [id number] Closed Specialty 12/30/2020 07/02/2022 1 1 Service Requested Reason for Visit Diagnostic Test (Routine) - Closed Specialty Diagnoses / Procedures Referred By Contact Refer red To Contact Radiology Diagnoses Radiculopathy of lumbar region Lacey Gleason APRN [facility] Rad Mri Procedures MRI Lumbar Spine wo Contrast (Generic) [facility] [place] [address] [place] [address] Referral ID Status Reason Start Date Expiration Date Visits V isits Requested Authorized [id number] Closed Specialty 12/30/2020 07/02/2022 1 1 Service Requested Encounter Details Date Type Department Care Team Description 01/25/2021 Hospital Encounter MRI at [facility] Lacey Gleason Radiculopathy of [facility] J, SUPERVISOR PATCHING lumbar region [address] [place], [place] CENTER [address] PAIN CLINIC [phone] [place] [address] Social History Tobacco Use Types Packs/Day Years Used Date Never Smoker Smokeless Tobacco: Never Used Sex Assigned at Date Recorded Not on file documented as of this encounter Medications at Time of Discharge Medication Sig Dispensed Refills Start Date End Date acetaminophen (Tylenol) Take 650 mg by mouth 0 325 mg Tablet as needed. albuteroL 90 mcg/actuation Inhale into the lungs 0 04/27/2019 HFA Aerosol Inhaler every 6 hours as needed. cholecalciferol, Vitamin Take 1 capsule by 0 08/16 D3, 25 mcg (1,000 unit) mouth daily. Takes 2 Capsule capsules in Winter nortriptyline (PAMELOR) 50 Take 1 capsule by 0 mg Capsule mouth daily. meclizine (Antivert) 25 mg Take 1 tablet by 0 Tablet mouth as needed. ondansetron (Zofran) 8 mg Take 1 tablet by 0 12/15 Tablet mouth as needed. SUMAtriptan (Imitrex) 50 Take 1 tablet by 0 07/25 mg Tablet mouth as needed. tamsulosin (Flomax) 0.4 mg Take 1 capsule by 0 Capsule mouth daily. Levothyroxine (Tirosint) Take 1 capsule by 0 11/16 50 mcg Capsule mouth daily. lactobacillus combination Take by mouth daily. 0 10/28/2020 no.8 3 billion cell Capsule MAGNESIUM ORAL Take 1 capsule by 0 02/23/2019 mouth daily. POTASSIUM CITRATE-CITRIC Take by mouth daily. 0 0 07/27/2020 ACID ORAL VITAMIN B COMPLEX ORAL Take 1 tablet by 0 019 mouth daily. documented as of this encounter Plan of Treatment Not on filedocumented as of this encounter Procedures Procedure Name Priority Date/Time Associated Diagnosis Comme nts MRI LUMBAR SPINE Routine 01/25/2021 8:56 PM Radiculopathy of R esults for this WITHOUT CONTRAST EDT lumbar region procedure are in the results section. documented in this encounter Results MRI Lumbar Spine wo [...] context of the clinical situation (Re davie- Cyndiek Et Al, Spine 2001). Findings: (Prevalence in [...] who have questions please contact the health regular senior care provider that requested your imaging first. ? Narrative [...] identified. Conus not inclu ded in the icrzt-vt-ugpp, probably terminating at the level of T12. [...] identified. Conus not inclu ded in the geslu-mq-cjen, probably terminating at the level of T12. [...] and in context of the clinical situation (Divya Yadav Et Al, Spine 2001). Findings: (Prevalence [...] ho have questions please contact the health regular senior care provider that requested your imaging first. Lacey Gleason APRN IMG MRI ORDERABLES documented in this encounter Visit Diagnoses Diagnosis Radiculopathy of lumbar region Thoracic or lumbosacral neuritis or radi culitis, unspecified documented in this encounter Care Teams Gambreler Helper Relationship Specialty Start Date End Date Romeo Corbin MD PCP - General 09/23/[address] [place] [address] documented as of this encounter
--- OUTSIDE RECORDS SUMMARY | 2022-04-19 13:40 | XMS_ITS | Encounter Summary ---
:1970 Author Organization [facility] [place] [address] Care Team Providers Name Role Phone Romeo Corbin MD Primary Care Provider Reason for Visit - Closed Specialty Diagnoses / Procedures Referred By Contact Refer red To Contact Procedures Romeo Corbin MD Film Library- Storage Only [address] [facility] Ultrasound Study [place], [place] [address] Referral ID Status Reason Start Date Expiration Date Visits Requ ested Visits Authorized [id number] Closed 10/31/2020 10/31/2021 1 1 Encounter Details Date Type Department Care Team Description 07/01/2020 Ancillary Procedure Radiology Library at Romeo Corbin MD [facility] [address] [address] [place], [place] [phone] (Wo rk) [phone] Social History Tobacco Use Types Packs/Day Years Used Date Never Smoker Smokeless Tobacco: Never Used Sex Assigned at Date Recorded Not on file documented as of this encounter Plan of Treatment Not on filedocumented as of this encounter Procedures Procedure Name Priority Date/Time Associated Comments Diagnosis FILM LIBRARY STORAGE Routine 07/01/2020 12:00 AM Results for this ONLY ULTRASOUND EST procedure ar e in STUDY the results section. documented in this encounter Results Film Library- Storage Only Ultrasound Study (07/01/2020 12:00 AM EST) Specimen (Source) Anatomical Location Collection Method / Collectio n Time Received Time / Laterality Volume Narrative RAD - 10/31/2020 9:49 AM EDT This exam is auto-finalizing. It's purpo se is for storage only. Romeo Corbin MD IMG FILM LIBRARY ORDERABLES Performing Organization Address City/State/ZIP Code Phon e Number RAD [place], [place] documented in this encounter Visit Diagnoses Not on filedocumented in this encounter Care Teams Traveling Phlebotomist Relationship Specialty Start Date End Date Romeo Corbin MD PCP - General 09/23/[address] [place] [address] documented as of this encounter
--- OUTSIDE RECORDS SUMMARY | 2022-04-19 13:40 | XMS_ITS | Encounter Summary ---
:1970 Author Organization [facility] [place] [address] Care Team Providers Name Role Phone Romeo Corbin MD Primary Care Provider Reason for Visit Reason Onset Date Comments Fall 01/11/2021 Encounter Details Date Type Department Care Team Description 01/11/2021 Telephone [facility] [place] [place] [address] Social History Tobacco Use Types Packs/Day Years Used Date Never Smoker Smokeless Tobacco: Never Used Sex Assigned at Date Recorded Not on file documented as of this encounter Miscellaneous Notes Telephone Encounter - Taniya Rhodes RN - 01/11/2021 9:55 AM EDT Mr Judge calls today with report of increase back pain after he missed a step at a clients house and tweaked his back. Mr Judge reports that his place of Employment ([employer]) is asking for a note that says he can go back to work after this injury. Ms Montess states that she can not write a note placing him back to work, when she has not assessedthis patient for this back injury. He was instructed to call his PCP, to be evaluated as to whether he can work. Patient expresses understanding. documented in this encounter Plan of Treatment Not on filedocumented as of this encounter Visit Diagnoses Not on filedocumented in this encounter Care Teams A/C Tech Relationship Specialty Start Date End Date Romeo Corbin MD PCP - General 09/23/[address] [place] [address] documented as of this encounter
--- OUTSIDE RECORDS SUMMARY | 2022-04-19 13:40 | XMS_ITS | Encounter Summary ---
:1970 Author Organization [facility] [place] [address] Care Team Providers Name Role Phone Romeo Corbin MD Primary Care Provider Encounter Details Date Type Department Care Team Description 01/03/2021 Telephone [facility] [place] [place] [address] Social History Tobacco Use Types Packs/Day Years Used Date Never Smoker Smokeless Tobacco: Never Used Sex Assigned at Date Recorded Not on file documented as of this encounter Miscellaneous Notes Telephone Encounter - Sary Franco - 01/03/2021 1:36 PM EDT MRI ORDER HAS BEEN EMAILED TO RADIOLOGY PART OF THE AGREED UPON PROCESS FOR BATCH SCHEDULING. FORDETAILS SEE BELOW: Type of MRI: Lumbar Spine Date e-mail sent to MRI schedulers: January 03, 2021 Ordering Provider: Lacey Gleason, MSN, DIRECTOR SOFTWARE Follow up needed by: DALY Visit type: Telehealth Zoom documented in this encounter Plan of Treatment Not on filedocumented as of this encounter Visit Diagnoses Not on filedocumented in this encounter Care Teams Space Scheduler Relationship Specialty Start Date End Date Romeo Corbin MD PCP - General 09/23/[address] [place] [address] documented as of this encounter
--- OUTSIDE RECORDS SUMMARY | 2022-04-19 13:40 | XMS_ITS | Encounter Summary ---
:1970 Author Organization [facility] [place] [address] Care Team Providers Name Role Phone Romeo Corbin MD Primary Care Provider Reason for Visit - Closed Specialty Diagnoses / Procedures Referred By Contact Refer red To Contact Procedures Romeo Corbin MD Film Library- Storage Only [address] [facility] 1 DX Abdomen [place], [place] [address] Referral ID Status Reason Start Date Expiration Date Visits Requ ested Visits Authorized [id number] Closed 10/31/2020 10/31/2021 1 1 Encounter Details Date Type Department Care Team Description 07/29/2020 Ancillary Procedure Radiology Library at Romeo Corbin MD [facility] [address] [address] [place], [place] [phone] (Wo rk) [phone] Social History Tobacco Use Types Packs/Day Years Used Date Never Smoker Smokeless Tobacco: Never Used Sex Assigned at Date Recorded Not on file documented as of this encounter Plan of Treatment Not on filedocumented as of this encounter Procedures Procedure Name Priority Date/Time Associated Diagnosis Comme nts FILM LIBRARY Routine 07/29/2020 12:00 AM Results for this STORAGE ONLY DX EST procedure ar e in ABDOMEN the results section. documented in this encounter Results Film Library- Storage Only DX Abdomen (07/29/2020 12:00 AM EST) Specimen (Source) Anatomical Location Collection Method / Collectio n Time Received Time / Laterality Volume Narrative RAD - 10/31/2020 9:52 AM EDT This exam is auto-finalizing. It's purpo se is for storage only. Romeo Corbin MD IMG FILM LIBRARY ORDERABLES Performing Organization Address City/State/ZIP Code Phon e Number RAD [place], [place] documented in this encounter Visit Diagnoses Not on filedocumented in this encounter Care Teams Production Grip Relationship Specialty Start Date End Date Romeo Corbin MD PCP - General 09/23/[address] [place] [address] documented as of this encounter
--- OUTSIDE RECORDS SUMMARY | 2022-04-19 13:40 | XMS_ITS | Continuity of Care Document ---
:1970 Author Organization [facility] e Address [address] [place] [address] Care Team Providers Name Role Phone ELISHA GARCIA Primary Care Physician Encounter [facility] FIN NBR [id number] Date(s): 04/05/22 - 04/05/[address] [address]- Discharge Disposition: Home or Self Care Attending Physician: Ernesto Foote MD Admitting Physician: Ernesto Foote MD Allergies, Adverse Reactions, Alerts Substance Reaction Severity Status Cigarette smoke Unknown Active Assessment and Plan Future Scheduled TestsRadiologyCT Abdomen and Pelvis w/ Contrast 04/05/22 Medications DHEA 50 mg oral tablet 50 mg = 1 tab, Oral, Daily, # 30 tab, 0 Refill(s) Start Date: 03/19/22 Status: Ordereddicyclomine 10 mg oral capsule 20 mg = 2 cap, Oral, QID, # 240 cap, 1 Refill(s), Pharmacy: [facility] #[id number], 182.88, cm,03/20/22 15:31:00 EDT, Height/Length Dosing, 95.25, [...] tab, 0 Refill(s), 05/05/22 10:56:00 EST, Pharmacy: [facility] #[id number], 182.88, cm, 03/20/22 15:31:00 EDT, Height/Length Dosing, [...] Confirmed Active loss 1pt states loose connective tissue/[id number] crushed Get10 [id number] Procedures Procedure Date Related Diagnosis Body Site [...] ompleted Vasectomy Completed 1auto-populated from documented surgical [id number] Results Radiology Reports Exam Date Time Procedure Performing Provider Status 04/05/22 9:05 AM US Abdomen Complete Cortney Harp; Araceli (Fela guerin) Notes:(US Abdomen Complete) Reason For Exam: Diffuse abdominal painUS Abdomen Complete EXAM DESCRIPTION: US Abdomen Complete 04/05/2022 INDICATION: DIFFUSE ABDOMINAL PAIN TECHNIQUE: Ultrasound examination of the abdomen with arboleda scale images and color Doppler images. COMPARISON: None FINDINGS: The liver measures 16.3 cm in maximum length. Diffusely increased hepatic echogenicity consistent with hepatic steatosis with a few small areas of intermediate echogenicity in the liver suggesting focal fatty sparing. No suspicious focal hepatic lesion. The main portal vein is patent with normal flow direction. No significant hepatic surface nodularity. No ascites in the the upper abdomen Normal spleen size without focal mass. Spleen measures 10.8 cm in maximum dimension. The pancreas is unremarkable No abdominal aortic aneurysm. IVC is visualized in the upper abdomen. Multiple echogenic, shadowing gallstones in the gallbladder. No gallbladder wall thickening or pericholecystic fluid. No biliary dilatation with common bile duct diameter of 3.4 mm. Negative sonographic Guardado sign. The left kidney measures 5.2 cm x 12.3 cm x 5.1 cm. The right kidney measures 5.3 cm x 11.1 cm x 5.3 cm. Small anechoic left renal lesion consistent with cyst measuring approximately 1 x 1.1 cm. No solid renal mass, hydronephrosis or perinephric fluid collection on either side. IMPRESSION: Findings consistent with hepatic steatosis with small areas of focal fatty sparing. No suspicious focal hepatic lesion identified. Cholelithiasis. No gallbladder wall thickening or biliary dilatation. Negative sonographic Guardado sign. JOB #: [id number] Final Signed by: Prasanth Raya MD Signed (Electronic Signature): 04/05/2022 10:40 am Social History Social History Type Response Tobacco Former tobacco user Tobacco Use:. Sex US Abdomen Prasanth Raya MD: VERIFY, VERIFY Event Display: Report EXAM DESCRIPTION: US Abdomen Complete 04/05/2022 INDICATION: DIFFUSE ABDOMINAL PAIN TECHNIQUE: Ultrasound examination of the abdomen with arboleda scale images and color Doppler images. COMPARISON: None FINDINGS: The liver measures 16.3 cm in maximum length. Diffusely increased hepatic echogenicity consistent with hepatic steatosis with a few small areas of intermediate echogenicity in the liver suggesting focal fatty sparing. No suspicious focal hepatic lesion. The main portal vein is patent with normal flow direction. No significant hepatic surface nodularity. No ascites in the the upper abdomen Normal spleen size without focal mass. Spleen measures 10.8 cm in maximum dimension. The pancreas is unremarkable No abdominal aortic aneurysm. IVC is visualized in the upper abdomen. Multiple echogenic, shadowing gallstones in the gallbladder. No gallbladder wall thickening or pericholecystic fluid. No biliary dilatation with common bile duct diameter of 3.4 mm. Negative sonographic Guardado sign. The left kidney measures 5.2 cm x 12.3 cm x 5.1 cm. The right kidney measures 5.3 cm x 11.1 cm x 5.3 cm. Small anechoic left renal lesion consistent with cyst measuring approximately 1 x 1.1 cm. No solid renal mass, hydronephrosis or perinephric fluid collection on either side. IMPRESSION: Findings consistent with hepatic steatosis with small areas of focal fatty sparing. No suspicious focal hepatic lesion identified. Cholelithiasis. No gallbladder wall thickening or biliary dilatation. Negative sonographic Guardado sign. JOB #: [id number] Final Signed by: Prasanth Raya MD Signed (Electronic Signature): 04/05/2022 10:40 am Patient Care team information PersonnelName: ELISHA GARCIA Address: Address: [address] [place] [id number] [place]
--- OUTSIDE RECORDS SUMMARY | 2022-04-19 13:40 | XMS_ITS | Encounter Summary ---
:1970 Author Organization [facility] [place] [address] Care Team Providers Name Role Phone Romeo Corbin MD Primary Care Provider Reason for Visit - Closed Specialty Diagnoses / Procedures Referred By Contact Refer red To Contact Procedures Romeo Corbin MD Film Library- Storage Only [address] [facility] [address] CT Abdomen & Pelvis [place], [place] [address] Referral ID Status Reason Start Date Expiration Date Visits Requ ested Visits Authorized [id number] Closed 10/31/2020 10/31/2021 1 1 Encounter Details Date Type Department Care Team Description 09/09/2020 Ancillary Procedure Radiology Library at Romeo Corbin MD [facility] [address] [address] [place], [place] [phone] (Wo rk) [phone] Social History Tobacco Use Types Packs/Day Years Used Date Never Smoker Smokeless Tobacco: Never Used Sex Assigned at Date Recorded Not on file documented as of this encounter Plan of Treatment Not on filedocumented as of this encounter Procedures Procedure Name Priority Date/Time Associated Diagnosis Comme nts FILM LIBRARY Routine 09/09/2020 12:00 AM Results for this STORAGE ONLY CT EDT procedure ar e in ABDOMEN AND PELVIS the resul ts section. documented in this encounter Results Film Library- Storage Only CT Abdomen & Pelvis (09/09/2020 12:00 AM EDT) Specimen (Source) Anatomical Location Collection Method / Collectio n Time Received Time / Laterality Volume Narrative RAD - 10/31/2020 9:53 AM EDT This exam is auto-finalizing. It's purpo se is for storage only. Romeo Corbin MD IMG FILM LIBRARY ORDERABLES Performing Organization Address City/State/ZIP Code Phon e Number [place], [place] documented in this encounter Visit Diagnoses Not on filedocumented in this encounter Care Teams Scheduling Specialist Relationship Specialty Start Date End Date Romeo Corbin MD PCP - General 09/23/[address] [place] [address] documented as of this encounter
--- OUTSIDE RECORDS SUMMARY | 2022-04-19 13:40 | XMS_ITS | Encounter Summary ---
:1970 [place] [address] Care Team Providers Name Role Phone Unknown Primary Care Provider Unavailable Encounter Details Date Type Department Care Team Description 02/03/2014 Telephone Neurology at [facility] Jose Luis Hernandes, [facility] [address] NEUROLOGY DEPT [phone] [place], [place] [address] (Wo rk) Social History Tobacco Use Types Packs/Day Years Used Date Never Assessed Sex Assigned at Date Recorded Not on file documented as of this encounter Miscellaneous Notes Telephone Encounter - Jose Luis Hernandes - 02/03/2014 11:56 PM EDT Called by provider, Dr. Rose, stating that Mr. Judge had arrived at ED with complaint of dizziness following roller coaster ride last weekend. Dizziness was persisting and PCP suggested imaging eval was needed. CT head was normal. Ruth Hallpike was positive to the right. Provider asking to transfer to [facility] for further eval or follow-up tomorrow for vessel imaging. Suggesting that CTA is not available there. Suggested that he follow-up with radiology there as I doubt that CTA head and neck is unavailable there, although this would mainly be to rule out as it sounds like BPPV. documented in this encounter Plan of Treatment Not on filedocumented as of this encounter Visit Diagnoses Not on filedocumented in this encounter Care Teams Alignment Mechanic Relationship Specialty Start Date End Date Unknown PCP - General 02/03/14 09/22/14 None documented as of this encounter
--- OUTSIDE RECORDS SUMMARY | 2022-04-19 13:40 | XMS_ITS | Encounter Summary ---
:1970 Author Organization [facility] [place] [address] Care Team Providers Name Role Phone Romeo Corbin MD Primary Care Provider Encounter Details Date Type Department Care Team Description 01/27/2021 TH Visit Pain and Spine Lacey Gleason, Radiculo surinder of (TeleHealth) [facility] [place] [facility] [employer] lumbar region [facility] [address] [facility] [id number] [place] [address] [phone] Social History Tobacco Use Types Packs/Day Years Used Date Never Smoker Smokeless Tobacco: Never Used Sex Assigned at Date Recorded Not on file documented as of this encounter Progress Notes Lacey Gleason, RADHA - 01/27/2021 3:30 PM EDT [facility] [place] [address] Phone: PAIN MANAGEMENT TELEPHONE VISIT NOTE DATE OF VISIT 01/27/2021 Patient Som Judge 1970 REFERRING PROVIDER Kaushik Mccauley APRN [address] [place] [address] PRIMARY CARE PROVIDER Romeo Corbin MD [X] Consent: I introduced and identified myself, received verbal consent from the patient to proceedwith this telephone visit and made the patient aware that the same confidentiality and information tech practices apply. [X] I verified the patient's name and, date of , and as well as payer information ID if available. [X] I also verified the following: Patient Location: ( ) Work (X) Home ( ) Other: Provider Location: (X) Clinic ( ) Home ( ) Other: [X] If COVID 19 screening required, patient directed to: Patient has no symptoms of fever, significant cough, or shortness of breath. The patient understands not all conditions can be adequately evaluated and treated through a virtualvisit and may require an in-person medical evaluation. The patient understands that there may be co-pay /cost for the visit. Phone Visits: PCV12 (5-10 Minutes) PCV13 (11-20 Minutes) PCV14 (21 or > Minutes) Reason for Visit: Som Judge is a 50 y.o. male with lower back pain radiating into the groin/testicles and abdomen as well as into the buttocks and posterior thighs worse on the left. Pain score: 3/10 With activity, his pain level increases. It is worse at night. He sustained a separate injury after he stepped off of a step and twisted wrong. He was seen by urgent care and was prescribed skelaxin and prednisone pack but he did not fill the prescriptions. Has not been able to get into PT until Feb.16. Patient continues to perform clinician directed home exercises. Patient denies any new neurological symptoms. Denies ataxia, uvaldo weakness, bladder/bowel complaints. Denies recent hospitalizations since last visit. Denies fever, chills. Past medical, social and family history is unchanged from his prior visit on 12/30/20. Physical Exam: On limited telephonic examination appropriate speech and communication. Constitutional - Ax3 Psychiatric - normal affect , responds normally Respiratory - normal respiratory effort Musculoskeletal - Per report normal gait, full ROM in peripheral joints Neurologic - Alert and oriented x 3 with intact recent memory, attention, concentration, language function, and affect. Speech is fluent and prosodic with no dysarthria appreciated. Per report, able to weight bear, lift legs, bend at hips while standing, toe and heel walk without issues. Imaging Studies: EXAMINATION: MRI LUMBAR SPINE WO CONTRAST (GENERIC) ?? CLINICAL HISTORY: Lumbar radiculopathy, > 6 wks left leg decreased sensation, lower back pain with radiation into groin/testicles and posterior left lower extremity. ? TECHNIQUE: MRI of the lumbar spine performed without intravenous contrast administration. ?? COMPARISON: None ?? FINDINGS: Please note, there are riblets at L1. Sagittal alignment appears maintained. Vertebral body heights appear preserved. Mild loss of disc is height with disc desiccation at L4-L5 and to lesser extent at L2-L3. No focal suspicious marrow signal RIGHT identified. Conus not included in the [id number], probably terminating at the level of T12. ?? T12-L1: No central spinal canal or neural foraminal narrowing. ?? L1-L2: No central spinal canal or neural foraminal narrowing. Mild bilateral facet arthrosis. ?? L2-L3: Mild disc bulge and mild bilateral facet arthrosis. No significant central spinal canal or neural frontal narrowing. ?? L3-L4: Mild disc bulge and mild bilateral facet arthrosis. No significant central spinal canal or neural foraminal narrowing. ?? L4-L5: Mild disc bulge with superimposed LEFT foraminal/extraforaminal component containing annular tear, bilateral facet arthrosis, and ligamentum flavum thickening attributed to minimal central spinal canal narrowing and mild bilateral neural foraminal narrowing with disc material contacting the extraforaminal exiting LEFT L4 nerve. ?? L5-S1: Broad central/LEFT-paracentral disc protrusion dorsally displacing the traversing LEFT S1 nerve root. Bilateral facet arthrosis. Overall, no significant central spinal canal or neural foraminal narrowing. ?? IMPRESSION 1. L4-L5 disc bulge with superimposed prominent LEFT foraminal/extraforaminal component containing annular tear, with disc material contacting the extraforaminal exiting LEFT L4 nerve root. 2. Broad central/LEFT-paracentral disc protrusion at L5-S1 displacing the traversing LEFT S1 nerve root. ?? Assessment Som Judge is a 50 y.o. male with lower back pain radiating into the groin/testicles and abdomen as well as into the buttocks and posterior thighs worse on the left. Imaging shows impingement on the L4 and the S1 nerve roots due to disc protrusions at both L4-5 and L5-S1. Plan Patient to start PT as scheduled. Add meloxicam 7.5mg 1-2 at hs. Must not exceed 2 tabs in 24 hours sent by erx to [facility].. If having frequent exacerbations, will consider therapeutic injection. Based on his current symptomswould consider an interlaminar at [facility] L4-5 L>. He would like to hold off for now. At this time there are no red flag symptoms on history. Patient instructed to go to emergency department if new or worsening neurological symptoms develop. Patient verbalized agreement of the plan. All of patient's questions were answered to his satisfaction. Time spent on this visit reflects time evaluating the patient pre-visit, during the visit and post-visit. Total time spent 25 minutes by telephone. Lacey Gleason, MSN, [employer] [facility] [place] [address] / documented in this encounter Plan of Treatment Not on filedocumented as of this encounter Visit Diagnoses Diagnosis Radiculopathy of lumbar region Thoracic or lumbosacral neuritis or radi culitis, unspecified documented in this encounter Care Teams Manager Photo Relationship Specialty Start Date End Date Romeo Corbin MD PCP - General 09/23/[address] [place] [address] [address] [place] [address] documented as of this encounter
--- OUTSIDE RECORDS SUMMARY | 2022-04-19 13:40 | XMS_ITS | Encounter Summary ---
:1970 Author Organization [facility] [place] [address] Care Team Providers Name Role Phone Romeo Corbin MD Primary Care Provider Reason for Visit Reason Comments Testicular Pain Encounter Details Date Type Department Care Team Description 11/15/2014 Office Visit [place] [facility] [place]y Schroeder Testicular pain, right; [facility] MD Jonathan [place] [address] UROLOGY DEPT [phone] [place], [place] [address] Social History Tobacco Use Types Packs/Day Years Used Date Never Smoker Smokeless Tobacco: Never Used Sex Assigned at Date Recorded Not on file documented as of this encounter Last Filed Vital Signs Vital Sign Reading Time Taken Comments Blood Pressure 130/77 11/15/2014 9:02 AM EDT Pulse 65 11/15/2014 9:02 AM EDT Temperature - - Respiratory Rate - - Oxygen Saturation 98% 11/15/2014 9:02 AM EDT Inhaled Oxygen Concentration - - Weight 93 kg (205 lb) 11/15/2014 9:02 AM EDT Height 182.9 cm (6') 11/15/2014 9:02 AM EDT Body Mass Index 27.8 11/15/2014 9:02 AM EDT documented in this encounter Progress Notes Coby Schroeder MD - 11/15/2014 9:37 AM EDT UROLOGY NEW PATIENT VISIT CC: right testicular pain HPI: 44 yo male who has had a chronic intermittent right testicular pain for at least one year. He statesthat he underwent a procedure done about 9 years ago at [facility] for urethral stricture, and his stream is good. He has intermittent daytime frequency, and sometimes sensation of incomplete emptying. He has had microscopic hematuria for many years, but no workup. He denies any gross hematuria or dysuria. He also states that he has had lack of energy for at least 6 months. He does not smoke. PMH/PSH: urethral stricture procedure, nephrolithiasis, EtOH/drug abuse SH: He does not smoke or drink. FH: negative for related cancers. Father had melanoma and sister MSMelinda ROS: General Health: GENERAL: Denies fevers, sweats, chills, anorexia, denies weight changes. 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 He has had dizziness and left arm numbness HEENT: Denies headaches and vision changes. RESP: Denies cough. Has had SOB CVS: Denies chest pain and COBURN. No claudication. GI: Denies nausea/vomiting/diarrhea/constipation. Normal appetite and bowels. : see hpi MUSCULOSKELETAL: Denies joint or muscle aches. Denies back pain. SKIN: Denies rashes. HEME: Denies bleeding tendencies, bruisability. EXAMINATION: Filed Vitals: 11/15/14 0902 BP: 130/77 Pulse: 65 GENERAL: Well appearing male in NAD. Healthy appearance. Normal color. HEENT: Atraumatic, normocephalic. Anicteric sclera. MMM. NECK: Supple with no significant lymphadenopathy. RESPIRATORY: Unlabored respirations with no audible wheezing. CARDIAC: Regular rhythm with no audible MGR. ABDOMEN: Benign without masses. No rebound or guarding. BACK: No CVA tenderness GENITALIA: Scrotum - Color and texture normal; no masses. Testicles and epididymides - No masses, but right sided tenderness noted of the testicle. Penis - Circumcised with orthotopic meatus; no masses or surface lesions. RECTAL: The anus and perineum are normal. Rectal sphincter tone is normal. Prostate is smooth, no nodules, approximately 20g NEUROLOGIC: Alert and oriented x 3. EXTREMITIES: Warm and well perfused with no pitting edema. LABS: urine dip positive for blood IMAGING: bladder scan showed PVR of 30cc ASSESSMENT/PLAN: Microscopic hematuria and hx of urethral stricture. Will order a CT urogram and perform an office cystoscopy today. Testicular pain - recommended a scrotal u/s to further evaluate. I counselled the patient on the above medical issues and discussed all concerns and questions the patient had. The patient verbalized understanding of the plan of care. I encouraged the patient to contact us with any other questions or concerns. documented in this encounter Miscellaneous Notes Addendum Note - Stacy Thibodeaux LPN - 11/15/2014 10:27 AM EDT Addended by: STACY THIBODEAUX on: 11/15/2014 10:27 AM Modules accepted: Orders documented in this encounter Plan of Treatment Not on filedocumented as of this encounter Procedures Procedure Name Priority Date/Time Associated Comments Diagnosis NON-PRODUCT SAFETY ENGINEER FINAL REPORT Routine 11/15/2014 10:27 Res ults for this AM EDT procedure are i n the results section. URINALYSIS WITH REFLEX Routine 11/15/2014 10:27 Microscopic R esults for this CULTURE AM EDT hematuria procedure are i n the results section. CYTOPATHOLOGY Routine 11/15/2014 10:27 Microscopic Results fo r this NON-GYNECOLOGICAL AM EDT hematuria procedure are in the results section. documented in this encounter Results Non-Baggage Agent Supervisor Final Report (11/15/2014 10:27 AM EDT) Component Value Ref Test Analysis Performed At [facility] Range Method Time Signature Non-Baggage Agent Supervisor Final CERNER Report ? [facility] ? Provider: ?? COBY SCHROEDER Pt. Name: ?? CLAUDETTE GAMBINO ? Acc #: ?[id number] ?Pt. MRN: ?[id number] ? Col Date: ?? 11/15/2014 ?/Sex: ?1970,(44 years),Male ? Rec Date: ?? 11/15/2014 ?LOC: ?5B ? CYTOPATHOLOGY: ??NGYN ? ---Cytopathologic Diagnosis--- ? Negative for Malignancy ? 11/16/14 ?Screened by: ? LMY ? Rescreened by: ?? WEATHERIZATION FIELD TECHNICIAN ? 11/16/14 ?Verified by: ? CRISTY SIMON, Evelia MCKEON ?Pathol ogist ? (Electronic Signature) ? ---Comment--- ? Urine, Voided: ??Urothelial cells , squamous cells, red blood cells, and ? crystals are present. ? ---Clinical Information--- ? Specimen Source: ?Urine, Voided ? Pertinent Clinical Data and Significant Therapy: ?Microscopic hematuria ? Clinical Impression: ?Microscopic hematuria ? Pertinent Radiologic Findings: ?(not provided) ? Gross Description: ?Received in 50% ETOH, approximately 70 ml. total volume of clear, yellow ? fluid. ?Total Preparation: Liquid Based Prep 1. Specimen (Source) Anatomical Collection Method Collection Time Re ceived Time Location / / Volume Laterality 11/15/2014 10:27 AM EDT Coby Schroeder MD PATHOLOGY/CYTOLOGY ORDERABLE S Performing Organization Address City/State/[place] [address] [facility] Cytopathology Non-Gynecological (11/15/2014 10:27 AM EDT) Specimen Anatomical Collection Method Collection Time Receive d Time (Source) Location / / Volume Laterality AP Specimen 11/15/2014 10:27 11/15/2014 AM EDT 10:27 AM EDT Narrative CERNER MILLENNIUM - 11/15/2014 10:27 AM EDT Specimen requisition ordered. ??Separate Pathology report to follow Coby Schroeder MD PATHOLOGY/CYTOLOGY ORDERABLE S Performing Organization Address City/[facility]/ZIP Code Phon e Number [address] CERNER MILLENNIUM (ABNORMAL) Urinalysis with microscopic (11/15/2014 10:27 AM EDT) [facility] Method Time Signature Glucose UA Negative Negative CERNER mg/dL MILLENNIUM Protein UA Negative Negative CERNER mg/dL MILLENNIUM Bilirubin UA Negative Negative CERNER mg/dL MILLENNIUM Comment: Clinical correlation required for positi ve Urine Bilirubin results as false positive may occur with some drugs and d rug related products. If a false positive is suspected a serum total bili narvaez should be considered if clinically indicated. Urobilinogen UA Normal Normal mg/dL CERNER MILL ENNIUM pH UA 5.0 5.0 - 8.0 CERNER MILLENNIUM Blood UA Moderate (A) Negative mg/dL CERNER MILLE NNIUM Ketones UA Negative Negative mg/dL CERNER MILLENN IUM Nitrite UA Negative Negative CERNER MILLENNIUM Leukocytes UA Negative Negative mcL CERNER CIRO NIUM Appearance UA Clear Clear CERNER MILLENNIU M Spec [place] UA 1.024 1.002 - 1.030 CERNER MIL LENNIUM Color UA Yellow Yellow CERNER MILLENNIUM RBC UA 6 (H) 0 - 3 /HPF CERNER MILLENNIUM WBC UA <1 0 - 3 /HPF CERNER MILLENNIUM Specimen Anatomical Collection Method Collection Time Receive d Time (Source) Location / / Volume Laterality Urine specimen 11/15/2014 10:27 5 (specimen) AM EDT 12:17 PM EDT Resulting Agency Comment Spec In Lab Coby Schroeder MD URINE ORDERABLES Performing Organization Address City/[facility]/[place] [address] [facility] documented in this encounter Visit Diagnoses Diagnosis Testicular pain, right Unspecified disorder of male genital org ans Microscopic hematuria documented in this encounter Care Teams Manager Surgery Relationship Specialty Start Date End Date Romeo Corbin MD PCP - General 09/23/[address] [place] [address] documented as of this encounter
--- OUTSIDE RECORDS SUMMARY | 2022-04-19 13:40 | XMS_ITS | Encounter Summary ---
:1970 Author Organization [place] [address] Care Team Providers Name Role Phone Romeo Corbin MD Primary Care Provider Encounter Details Date Type Department Care Team Description 11/15/2014 Procedure visit Urology at [facility] Ritesh Schroeder, [facility] MD Jonathan unspecified [facility] [id number] UROLOGY DEPT [phone] [place], [place] [address] Social History Tobacco Use Types Packs/Day Years Used Date Never Smoker Smokeless Tobacco: Never Used Sex Assigned at Date Recorded Not on file documented as of this encounter Patient Instructions Patient InstructionsStacy Sawant LPN - 11/15/2014 9:58 AM EDT Instructions following Cystoscopy Activity: As tolerated by your comfort level. Fluids: You should increase your water today. Avoid coffee, tea and cola. You do not need to exceed 64 ounces of water today. Urination: You will likely have a small amount of blood in your urine for the next several days. This is normal; however, if you are passing large amounts of blood clots or are unable to void please call our office at [phone] before 5PM or [phone] after hours. Please call if: * you have copious blood in your urine * fevers greater than 101.3 F * you are unable to void The number for questions is [phone] before 5 PM weekdays and [phone] after 5 PM and weekends. Follow-up: With [facility] documented in this encounter Procedure Notes Ritesh Schroeder MD - 11/15/2014 10:07 AM EDTAssociated Order(s): CYSTOSCOPY Pre-Procedure Diagnose(s): Hematuria, unspecified Patient: Som Judge Date of : 1970 SUBJECTIVE: This 44 y.o. years-old male presents for cystoscopy because of a history of microscopic hematuria. PROCEDURE - CYSTOSCOPY: Informed consent obtained from the patient and the patient was correctly identified. The patient was cystoscoped with a flexible scope following routine skin cleansing and drapping. 2% xylocaine gel was instillated into the urethra. The urethra was normal, except for a mild short bulbar urethral stricture. The prostate appeared nonobstructive with a bilobar configuration. The external genitalia were normal. The bladder mucosa was normal. Ureteral orifices were located in an orthotopic position, effluxing clear urine. No bladder tumors or foreign bodies were noted. The patient tolerated the procedure well. Patient was given ciprofloxacin IMPRESSION: Normal Bladder, mild urethral stricture PLAN: 1) CT urogram and scrotal u/s 2) f/u prn documented in this encounter Plan of Treatment Not on filedocumented as of this encounter Procedures Procedure Name Priority Date/Time Associated Diagnosis Comme nts CYSTOSCOPY Routine 11/15/2014 11:57 AM Hematuria, unspecifie d Results for this EDT procedure are i n the results section. documented in this encounter Results Cystoscopy (11/15/2014 11:57 AM EDT) Narrative Ritesh Schroeder MD - 11/15/2014 11: 57 AM EDT Ritesh Schroeder MD ? 11/15/2014 11:57 AM Patient: Som Judge Date of : 1970 SUBJECTIVE: This 44 y.o. years-old male presents for cystoscopy because of a history of microscopic prkaash turia. PROCEDURE - CYSTOSCOPY: Informed consent obtained from the patie nt and the patient was correctly identified. The patient was cystoscoped with a flexi ble scope following routine skin cleansing and drapping. ??2 % xylocaine gel was instillated into the urethra. ??The uret hra was normal, except for a mild short bulbar urethral stricture. ??The prostate appeared nonobstructive with a bilobar configurat ion. ??The external genitalia were normal. The bladder mucosa was normal. Ureteral orifices were located in an orthotopic position, effluxing clear urine. No bladder tumors or foreign bodies were noted. The patient tolerated the procedure well . Patient was given ciprofloxacin IMPRESSION: Normal ??Bladder, mild ureth ral stricture PLAN: 1) CT urogram and scrotal u/s 2) f/u prn Ritesh Schroeder MD PROCEDURE ORDERABLES documented in this encounter Visit Diagnoses Diagnosis Hematuria, unspecified documented in this encounter Care Teams Vehicle Upholsterer Relationship Specialty Start Date End Date Romeo Corbin MD PCP - General 09/23/14 [address] [place] [address] documented as of this encounter
--- OUTSIDE RECORDS SUMMARY | 2022-04-19 13:40 | XMS_ITS | Encounter Summary ---
:1970 Author Organization [facility] [place] [address] Care Team Providers Name Role Phone Romeo Corbin MD Primary Care Provider Encounter Details Date Type Department Care Team Description 01/10/2021 Telephone Pain and Spine Mike [facility] at [facility] [address] Social History Tobacco Use Types Packs/Day Years Used Date Never Smoker Smokeless Tobacco: Never Used Sex Assigned at Date Recorded Not on file documented as of this encounter Miscellaneous Notes Telephone Encounter - Tali Moyer - 01/10/2021 4:47 PM EDT Spoke to pt today and schedule his F/U with Lacey for after his MRI which is scheduled on 01/25/21. documented in this encounter Plan of Treatment Not on filedocumented as of this encounter Visit Diagnoses Not on filedocumented in this encounter Care Teams Passenger Representative Relationship Specialty Start Date End Date Romeo Corbin MD PCP - General 09/23/[address] [place] [address] documented as of this encounter
--- OUTSIDE RECORDS SUMMARY | 2022-04-19 13:40 | XMS_ITS | Clinical Summary ---
:1970 Author Organization [facility] [place] [address] Care Team Providers Name Role Phone Romeo Corbin MD Primary Care Provider Allergies Active Allergy Reactions Severity Noted Date Comments Cigarette Smoke 10/28/2020 Erythromycin Base Medium 10/28/2020 Other reac tion(s): Vomiting Medications Medication Sig Dispensed Refills Start Date End Date Status acetaminophen (Tylenol) Take 650 mg by 0 01/08/2020 Active 325 mg Tablet mouth as needed. albuteroL 90 Inhale into the 0 04/27/2019 Active mcg/actuation HFA lungs every 6 Aerosol Inhaler hours as needed. cholecalciferol, Take 1 capsule by 0 09/09/2015 Active Vitamin D3, 25 mcg mouth daily. (1,000 unit) Capsule Takes 2 capsules in Winter nortriptyline (PAMELOR) Take 1 capsule by 0 11/22/19 21 Active 50 mg Capsule mouth daily. meclizine (Antivert) 25 Take 1 tablet by 0 5 Active mg Tablet mouth as needed. ondansetron (Zofran) 8 Take 1 tablet by 0 12/31/2019 Active mg Tablet mouth as needed. SUMAtriptan (Imitrex) Take 1 tablet by 0 07/25/2020 Active 50 mg Tablet mouth as needed. tamsulosin (Flomax) 0.4 Take 1 capsule by 0 10/29/19 21 Active mg Capsule mouth daily. Levothyroxine Take 1 capsule by 0 12/14/2019 Active (Tirosint) 50 mcg mouth daily. Capsule lactobacillus Take by mouth 0 10/28/2020 A ctive combination no.8 3 daily. billion cell Capsule MAGNESIUM ORAL Take 1 capsule by 0 02/23/2019 Active mouth daily. POTASSIUM Take by mouth 0 07/27/2020 Activ e CITRATE-CITRIC ACID daily. ORAL VITAMIN B COMPLEX ORAL Take 1 tablet by 0 02/23/2019 Active mouth daily. meloxicam (MOBIC) 7.5 Take one at hs 60 tablet 3 01/27/2021 Active mg TabletIndications: for pain and Radiculopathy of lumbar inflammation. May region increase to 2 at hs if needed. Do not exceed 2 tablets in 24 hours. Active Problems Problem Noted Date Diverticulosis of colon without diverticulitis 021 History of narcotic addiction 12/30/2020 Hypothyroidism 12/30/2020 IBS (irritable bowel syndrome) 12/30/2020 LLQ abdominal pain 12/30/2020 Low back pain 12/30/2020 Migraines 12/30/2020 Pelvic pain in male 12/30/2020 Peripheral polyneuropathy 12/30/2020 Depression 09/03/2017 Gastroesophageal reflux disease 06/29/2013 Social History Tobacco Use Types Packs/Day Years Used Date Never Smoker Smokeless Tobacco: Never Used Sex Assigned at Date Recorded Not on file Last Filed Vital Signs Vital Sign Reading Time Taken Comments Blood Pressure 112/69 12/30/2020 3:42 PM EDT Pulse 117 12/30/2020 3:42 PM EDT Temperature - - Respiratory Rate - - Oxygen Saturation 98% 11/15/2014 9:02 AM EDT Inhaled Oxygen Concentration - - Weight 93.9 kg (207 lb) 12/30/2020 3:42 PM EDT Height 182.9 cm (6') 12/30/2020 3:42 PM EDT Body Mass Index 28.07 12/30/2020 3:42 PM EDT Plan of Treatment Health Maintenance Due Date Last Done Comments Covid-19 Vaccine (#1) 1970 HIV screen 1989 Hepatitis C Screening 1989 Lipid Screening 1989 Tdap adult 1990 Tetanus vaccine 1990 Diabetes Screening (HgbA1C or Glucose) 2011 Colonoscopy 2016 Zoster vaccine (1 of 2) 2021 Influenza (Flu) vaccine (1 of 1 - Influenza standard 02/15/2022 series) Insurance Payer Benefit Plan Subscriber ID Effective Dates Phone Address Type / Group [facility] [id number] 2020-Prese [phone] [address] [facility] [address] [facility] [address] Care Teams Prep Room Supervisor Relationship Specialty Start Date End Date Romeo Corbin MD PCP - General 09/23/[address] [place], [place] [id number]
--- OUTSIDE RECORDS SUMMARY | 2022-04-19 13:40 | XMS_ITS | Encounter Summary ---
:1970 Author Organization [facility] [place] [address] Care Team Providers Name Role Phone Romeo Corbin MD Primary Care Provider Encounter Details Date Type Department Care Team Description 02/14/2015 Orders Only Urology at [facility] Ritesh Schroeder MD [facility] [place] [address] UROLOGY DEPT [phone] [place], [place] [address] (Wo rk) Social History Tobacco Use Types Packs/Day Years Used Date Never Smoker Smokeless Tobacco: Never Used Sex Assigned at Date Recorded Not on file documented as of this encounter Plan of Treatment Not on filedocumented as of this encounter Procedures Procedure Name Priority Date/Time Associated Diagnosis Comme nts FILM LIBRARY Routine 02/14/2015 7:15 PM Results f or this STORAGE ONLY CT EDT procedure ar e in ABDOMEN AND PELVIS the resul ts section. documented in this encounter Results Film Library- Storage only CT abdomen & pelvis (02/14/2015 7:15 PM EDT) Anatomical Region Laterality Modality Abdomen, Pelvis Other Specimen (Source) Anatomical Collection Method Collection Time Re ceived Time Location / / Volume Laterality 02/14/2015 7:15 PM EDT Narrative 02/14/2015 7:35 PM EDT This is a Non-reportable exam Procedure Note JACQUELINE, UNSIGNED REPORT - 02/14/2015Formatt ing of this note might be different from the original. This is a Non-reportable exam Ritesh Schroeder MD IMG FILM LIBRARY ORDERABLES documented in this encounter Visit Diagnoses Not on filedocumented in this encounter Care Teams Fur Drummer Relationship Specialty Start Date End Date Romeo Corbin MD PCP - General 09/23/[address] [facility] [place] [address] documented as of this encounter
--- OUTSIDE RECORDS SUMMARY | 2022-04-19 13:41 | XMS_ITS | Encounter Summary ---
:[address] [facility] Address [address] [place] [address] Care Team Providers Name Role Phone Unavailable Primary Care Provider Unavailable Encounter Details Date Type Department Care Team Description 03/23/2022 Lab Requisition [facility] - Shorty Foote Encounter for screening for malignant neoplasm of colon; [facility] - Nate Tracy MD Nausea with vomiting, unspecified [place] [address] [facility] [address] [place] [address] [place], [place] [phone] Social History Tobacco Use Types Packs/Day Years Used Date Never Assessed Sex Assigned at Date Recorded Not on file documented as of this encounter Plan of Treatment Not on filedocumented as of this encounter Procedures Procedure Name Priority Date/Time Associated Diagnosis Comme nts SURGICAL PATHOLOGY Today 03/22/2022 12:47 Resul ts for this EDT procedure are i n the results section. documented in this encounter Results SURGICAL PATHOLOGY (03/22/2022 12:47 EDT) Note to Patient The following [facility] pathology results have [facility] been interpreted by your pathologist and may be available to you before your health provider has had the opportunity to review them. Please allow time for your provider to receive these results and explore management options, if applicable. Final Diagnosis A. DUODENUM, BIOPSY: [facility] - Duodenal mucosa with patch y peptic change and no other significant histopathologic abnormalities. [facility] B. DUODENAL BULB, BIOPSY: - Duodenal mucosa with patch y peptic change and no other significant histopathologic abnormalities. C. GASTRIC ANTRUM, BIOPSY: - Fragments of body type mucosa with patchy, mild tax senior associate keeley gastritis. - No Helicobacter-like microorganisms identified on routine stained sections. D. GASTRIC BODY, BIOPSY: - Fragments of body type muc eliza with no significant histopathologic abnormalities. - No Helicobacter-like microorganisms identified on routine stained sections. E. DISTAL ESOPHAGUS, BIOPSY: - Unremarkable squamous mucosa. - No significant eosinophilic inflammation identified. F. MID ESOPHAGUS, BIOPSY: - Unremarkable squamous mucosa. - No significant eosinophilic inflammation identified. G. COLON, CECUM, POLYP: - Fragments of tubulovillous adenoma. H. COLON, RANDOM, BIOPSIES: - Fragments of unremarkable colonic mucosa. Attestation By the signature [facility] Electron ically below, the attending [facility] joão d by Noe, physician certifies Soraya Prajapati MD on that they have 1) 03/26/2022 at 1056 personally conducted a gross and/or microscopic examination of the described specimen(s), and/or personally interpreted the results of laboratory testing of the described specimen(s), and 2) personally rendered or confirmed the above diagnosis. Clinical History screening, [facility] unintentional wt loss, [facility] nausea + vomiting, change in bowel habots Gross Description A. [facility] The specimen is received in formalin labeled with ? Som Shawn? and ? A? and ? duodenum Bx? are 2 mucosal fragments that measure 0.1 x 0.2 x 0.2 cm and 0.1 x 0.2 x 0.3 cm. The specimen is entirely submitted in 1 cassette. [facility] B. The specimen is received in formalin labeled with ? Som W. Nu? and ? B? and ? duodenal bulb Bx? are 2 mucosal fragments that measure 0.1 x 0.1 x 0.2 cm and 0.1 x 0.2 x 0.5 cm. The specimen is entirely submitted in 1 cassette. C. The specimen is received in formalin labeled with ? Som W. Nu? and ? C? and ? antrum Bx? are 2 mucosal fragments that measure 0.1 x 0.1 x 0.2 cm and 0.2 x 0.2 x 0.2 cm. The specimen is entirely submitted in 1 cassette. D. The specimen is received in formalin labeled with ? Som W. Nu? and ? D? and ? gastric body Bx? are 2 mucosal fragments that measure 0.1 x 0.2 x 0.2 cm and 0.1 x 0.2 x 0.5 cm. The specimen is entirely submitted in 1 cassette. E. The specimen is received in formalin labeled with ? Som Shawn? and ? E? and ? distal esophagus Bx? is a mucosal fragment that measures 0.1 x 0.2 x 0.4 cm. The specimen is entirely submitted in 1 cassette. F. The specimen is received in formalin labeled with ? Som W. Nu? and ? F? and ? mid esophagus Bx? are 3 mucosal fragments that range in size from 0.1 x 0.1 x 0.1 cm up to 0.1 x 0.2 x 0. 3 cm. The specimen is entirely submitted in 1 cassette . G. The specimen is received in formalin labeled with ? Som W. Nu? and ? G? and ? cecal polyp? are 13 mucosal fragments that range in size from 0.1 x 0.2 x 0.2 cm up to 0.4 x 0.5 x 1.5 cm . The mucosal fragments are submitted in cassettes G1 through G3. Submitted in cassette G4 is an estimated 0.1 cc aggregate of apparent digestive material and possible mucosal fragments, filtered. The specimen is entirely submitted in 4 cassettes. H. The specimen is received in formalin labeled with ? Som W. Nu? and ? H? and ? random colon Bx? are 4 mucosal fragments that range in size from 0.1 x 0.1 x 0.1 cm up to 0.1 x 0.1 x 0.6 cm. The specimen is entirely submitted in 1 cassette. Jacqueline Gtz 03/23/2022 12:07 Performing Lab [facility] Scanned Images [facility] Specimen Tissue - Entire colon (body structure) Tissue specimen (specimen) - Entire ante rior wall of duodenal bulb (body structure) Tissue specimen (specimen) - Gastric/Sto mach, Antrum Tissue specimen (specimen) - Gastric/Sto mach, Body Tissue specimen (specimen) - Entire esop hagus (body structure) Tissue specimen (specimen) - Entire esop hagus (body structure) Tissue specimen (specimen) - Cecum struc ture (body structure) Tissue specimen (specimen) - Entire colo n (body structure) Performing Organization Address City/State/ZIP Code Phon e Number [facility] [address] [place] [address] documented in this encounter Visit Diagnoses Diagnosis Encounter for screening for malignant ne oplasm of colon Special screening for malignant neoplasm s, colon Nausea with vomiting, unspecified documented in this encounter
--- OUTSIDE RECORDS SUMMARY | 2022-04-19 13:41 | XMS_ITS | Encounter Summary ---
:1970 Author Organization [facility] Address [address] [place] [address] Care Team Providers Name Role Phone Unavailable Primary Care Provider Unavailable Encounter Details Date Type Department Care Team Description 07/17/2000 Hospital Encounter [facility] - Josette Jarquin MD [address] [facility] [address] [place], [place] [id number] [place] [phone] (Wo rk) Social History Tobacco Use Types Packs/Day Years Used Date Never Assessed Sex Assigned at Date Recorded Not on file documented as of this encounter Discharge Disposition Disposition Code Departure Means Destination Auto Discharge documented in this encounter Plan of Treatment Not on filedocumented as of this encounter Visit Diagnoses Not on filedocumented in this encounter
--- OUTSIDE RECORDS SUMMARY | 2022-04-19 13:41 | XMS_ITS | Encounter Summary ---
:1970 Author Organization [facility] Address [address] [place] [address] Care Team Providers Name Role Phone Unavailable Primary Care Provider Unavailable Encounter Details Date Type Department Care Team Description 01/22/2020 Lab Requisition [facility] Outr Resulting Lab, Pathology & Laboratory Provider [facility] [address] [place] [address] Social History Tobacco Use Types Packs/Day Years Used Date Never Assessed Sex Assigned at Date Recorded Not on file documented as of this encounter Plan of Treatment Not on filedocumented as of this encounter Procedures Procedure Name Priority Date/Time Associated Comments Diagnosis DO NOT ORDER Today 01/22/2020 10:54 Results for this STANDALONE - BROAD EDT procedure are in COVID TEST the results section. COVID-19 TESTING Routine 01/22/2020 10:54 Results for this EDT procedure are i n the results section. documented in this encounter Results DO NOT ORDER STANDALONE - BROAD COVID TEST (01/22/2020 10:54 EDT) COVID-19 rt-PCR NEGATIVE Negative [facility] Result Comment: LABORATORY 2019-novel Coronavirus (2019 -nCoV) not detected by the qRT-PCR assay. Consider testing for other respiratory viruses or re-collecting for 2019-nCoV testing. Note: Optimum timing for peak viral levels du ring infections caused by 20 -nCoV have not been determined. Collection of multiple specimens from the same patient may be necessary to detect the virus. Limitations Positive results are indicat pasquale of active infection with SARS-CoV-2 but do not rule out bacterial infection or co-infection with other viruses. The agent detected may not be the definite cause of diseas e. In addition, detection of viral RNA may not indicate the presence of infectious virus or that SARS-CoV-2 is the causative agent for clinical symptoms. Negative results do not prec lude SARS-CoV-2 infection and should not be used as the sole basis for patient management decisions. Negative results must be combined with clinical observations, patient his tory, and epidemiological in formation. False negative results may also occur if amplification inhibitors are present in the specimen or if inadequate numbers of organisms are present in the specimen. Op timum specimen types and juliocesar ing for peak viral levels during infections caused by SARS-CoV-2 have not been fully determined. Collection of multiple specimens (types and time points) from the same patient may be necessary to detect the virus. The test was validated for u se with upper respiratory specimens obtained via nasopharyngeal or oropharyngeal swabs in VTM, UTM, M4, M5, M6, saline, and MTM media. The performance of this test has not be en established for other spe cimens. Specimens collected using other FDA recommended Specimen Collection Materials listed in the FDA COVID-19 [employer] communication (September 10, 2019) are pr ocessed with the caveat that they were not all validated for use with this test and the result must be interpreted in this context. Furthermore, a false negative results may occur if a specimen is improperly collected, transported or handled. If the virus mutates in the RT-PCR target region, SARS-CoV-2 may not be detected or may be detected less predictably. Inhibitors or other types of interference may produce a false negative result. An interference study evaluating the effect of common cold medications was not performed. This test is not FDA-cleared but its performance characteristics were established by our CLIA-certified, CAP-accredited, high complexity laboratory in accordance with CLIA regulations, [employer] (CAP) guidel sarah (Sep 03, 2019), and FDA guidance (Aug 15, 2019). This test is only for use un shaquille the Food and Drug Administration's Emergency Use Authorization. Specimen Swab - Entire nasopharynx (body structur e) Performing Organization Address City/State/ZIP Code Phon e Number [facility] [place] [place] COVID-19 TESTING (01/22/2020 10:54 EDT) COVID-19 rt-PCR NEGATIVE Negative [facility] Result Comment: LABORATORY 2019-novel Coronavirus (2019 -nCoV) not detected by the qRT-PCR assay. Consider testing for other respiratory viruses or re-collecting for 2019-nCoV testing. Note: Optimum timing for peak viral levels du ring infections caused by 20 -nCoV have not been determined. Collection of multiple specimens from the same patient may be necessary to detect the virus. Limitations Positive results are indicat pasquale of active infection with SARS-CoV-2 but do not rule out bacterial infection or co-infection with other viruses. The agent detected may not be the definite cause of diseas e. In addition, detection of viral RNA may not indicate the presence of infectious virus or that SARS-CoV-2 is the causative agent for clinical symptoms. Negative results do not prec lude SARS-CoV-2 infection and should not be used as the sole basis for patient management decisions. Negative results must be combined with clinical observations, patient his tory, and epidemiological in formation. False negative results may also occur if amplification inhibitors are present in the specimen or if inadequate numbers of organisms are present in the specimen. Op timum specimen types and juliocesar ing for peak viral levels during infections caused by SARS-CoV-2 have not been fully determined. Collection of multiple specimens (types and time points) from the same patient may be necessary to detect the virus. The test was validated for u with upper respiratory specimens obtained via nasopharyngeal or oropharyngeal swabs in VTM, UTM, M4, M5, M6, saline, and MTM media. The performance of this test has not be en established for other spe cimens. Specimens collected using other FDA recommended Specimen Collection Materials listed in the FDA COVID-19 [employer] communication (September 10, 2019) are pr ocessed with the caveat that they were not all validated for use with this test and the result must be interpreted in this context. Furthermore, a false negative results may occur if a specimen is improperly collected, transported or handled. If the virus mutates in the RT-PCR target region, SARS-CoV-2 may not be detected or may be detected less predictably. Inhibitors or other types of interference may produce a false negative result. An interference study evaluating the effect of common cold medications was not performed. This test is not FDA-cleared but its performance characteristics were established by our CLIA-certified, CAP-accredited, high complexity laboratory in accordance with CLIA regulations, [employer] of [employer] an [employer]ologists (CAP) guidel sarah (Sep 03, 2019), and FDA guidance (Aug 15, 2019). This test is only for use un shaquille the Food and Drug Administration's Emergency Use Authorization. Performing Lab [facility] LABORATORY SERVICES Specimen Swab Performing Organization Address City/State/ZIP Code Phon e Number [facility] [address] [place] [address] SERVICES [facility] [place], [place] documented in this encounter Visit Diagnoses Not on filedocumented in this encounter
--- OUTSIDE RECORDS SUMMARY | 2022-04-19 13:41 | XMS_ITS | Encounter Summary ---
:1970 Author Organization [facility] Address [address] [place] [address] Care Team Providers Name Role Phone Unavailable Primary Care Provider Unavailable Encounter Details Date Type Department Care Team Description 08/15/2000 - Hospital Encounter [facility] - Josette Jarquin 09/14/2000 Nisha Law MD [address] [place] [phone] [place] [phone] Social History Tobacco Use Types Packs/Day Years Used Date Never Assessed Sex Assigned at Date Recorded Not on file documented as of this encounter Discharge Disposition Disposition Code Departure Means Destination Auto Discharge documented in this encounter Plan of Treatment Not on filedocumented as of this encounter Visit Diagnoses Not on filedocumented in this encounter
--- OUTSIDE RECORDS SUMMARY | 2022-04-19 13:41 | XMS_ITS | Encounter Summary ---
:1970 Author Organization [facility] Address [address] [place] [address] Care Team Providers Name Role Phone Unavailable Primary Care Provider Unavailable Encounter Details Date Type Department Care Team Description 01/06/2007 Results Only [facility] - Nisha Zacarias ams, Angel P, TECHNOLOGY ARCHITECT conversion [address] [place] [phone] Social History Tobacco Use Types Packs/Day Years Used Date Never Assessed Sex Assigned at Date Recorded Not on file documented as of this encounter Plan of Treatment Not on filedocumented as of this encounter Procedures Procedure Name Priority Date/Time Associated Diagnosis Comme nts CYTOPATHOLOGY Routine 01/06/2007 0:00 EDT Results for this procedure are i n the results section . documented in this encounter Results CYTOPATHOLOGY (01/06/2007 0:00 EDT) Pathology Report: CYTOPATHOLOGY REPORT [facility] Reports generated via electronic interface contain navjot ginal data; however they are lacking the format of the original re port. Caution should be taken when reading/interpreting unfo rmatted reports. Name: ? CLAUDETTE JUDGE ? Accession #: ? [id number] : ? 1970 (Age: 36) ??M ?Collect Date: ? 12/16 Location: ? [facility] ? Receive Date : ? 01/07/2007 Provider: ? ANGEL OLMOS TUBE STATION ATTENDANT Copy to: ? CYTOLOGIC DIAGNOSIS: ? Urine, voided, cytologic evaluation: - No malignant cells identified. Document reviewed and electronically signed by: ? ABDELRAHMAN SUÁREZ MD Report Date: ??01/08/2007 17:52 By the signature above, the attending physician certif ies that he/she has personally conducted a gross and/or microscopic examin ation of the described specimens and rendered or confirmed the above diagnosi s. Specimen Type: ? Urine, Voided Clinical History: ? Hematuria; clinical diagnosis code: ??599.7 ? Gross Description: ? 1 tube of Cytolyt was received and processed by selective cellular enhancement technique. ? End of Report Specimen Performing Organization Address City/State/ZIP Code Phon e Number [facility] [address] [place] [address] SERVICES [facility] [address] [place] [address] documented in this encounter Visit Diagnoses Not on filedocumented in this encounter
--- OUTSIDE RECORDS SUMMARY | 2022-04-19 13:41 | XMS_ITS | Encounter Summary ---
:1970 Author Organization [facility] Address [address] [place] [address] Care Team Providers Name Role Phone Unavailable Primary Care Provider Unavailable Encounter Details Date Type Department Care Team Description 07/03/2000 Hospital Encounter [facility]- Deana Oliveira, [facility] MD Hussein [address] [place] [address] Social History Tobacco Use Types Packs/Day Years Used Date Never Assessed Sex Assigned at Date Recorded Not on file documented as of this encounter Discharge Disposition Disposition Code Departure Means Destination Auto Discharge documented in this encounter Plan of Treatment Not on filedocumented as of this encounter Procedures Procedure Name Priority Date/Time Associated Diagnosis Comme nts L SPINE 4 OR MORE Routine 07/03/2000 13:04 Result s for this VIEWS EST procedure are i n the results section. documented in this encounter Results L SPINE 4 OR MORE VIEWS (07/03/2000 13:04 EST) Anatomical Region Laterality Modality Other Specimen Narrative [facility] - 04/27/2009 0: 16 EST 5 day lbp now with S1 radicular rx h/o compress fx 1990 r/o disc disease foraminal restriction LUMBAR SPINE W/OBLIQUES 07/03/00, 1255 h ours HISTORY: Five day history of low back pain, now w ith S1 radicular symptoms. By report, there is a history of compressio n fractures in 1990. Evaluate for evidence of disc disease, foraminal restriction. FINDINGS: Five views of the lumbar spine without p rior films available for comparison demonstrate the lumbar spine to be normally aligned with the exception of minimal levoconvex rota ry scoliosis in the lower lumbar spine. There is no evidence of co mpression deformity within the visualized lower thoracic spine or l umbar spine. There are 5 non-rib bearing lumbar vertebral bodies. The intervertebral discs appear well maintained with minimal, if any narrowing of the L4-5 inner vertebral discs. No definitive par s defects are identified. The facet joints have a normal appearanc e. The SI joints appear intact. Findings were discussed with Dr. Romeo guzmán on 07/03/00. D 07/03/00 T 07/07/00 /zainab Procedure Note Eloisa Robison MD - 04/27/2009 5 day lbp now with S1 radicular rx h/o c ompress fx 1990 r/o disc disease foraminal restriction LUMBAR SPINE W/OBLIQUES 07/03/00, 1255 h ours HISTORY: Five day history of low back pain, now w ith S1 radicular symptoms. By report, there is a history of compressio n fractures in 1990. Evaluate for evidence of disc disease, foraminal restriction. FINDINGS: Five views of the lumbar spine without p rior films available for comparison demonstrate the lumbar spine to be normally aligned with the exception of minimal levoconvex rota ry scoliosis in the lower lumbar spine. There is no evidence of co mpression deformity within the visualized lower thoracic spine or l umbar spine. There are 5 non-rib bearing lumbar vertebral bodies. The intervertebral discs appear well maintained with minimal, if any narrowing of the L4-5 inner vertebral discs. No definitive par s defects are identified. The facet joints have a normal appearanc e. The SI joints appear intact. Findings were discussed with Dr. Romeo guzmán on 07/03/00. D 07/03/00 T 07/07/00 /zainab Performing Organization Address City/State/ZIP Code Phon e Number [facility] [address] [facility] [address] [facility] [address] [place], [place] [address] documented in this encounter Visit Diagnoses Not on filedocumented in this encounter
--- OUTSIDE RECORDS SUMMARY | 2022-04-19 13:41 | XMS_ITS | Encounter Summary ---
:1970 Author Organization [facility] Address [address] [place] [address] Care Team Providers Name Role Phone Unavailable Primary Care Provider Unavailable Encounter Details Date Type Department Care Team Description 11/05/2019 Lab Requisition [facility] Outr Resulting Lab, Pathology & Laboratory Provider [facility] [address] [place], [place] [address] Social History Tobacco Use Types Packs/Day Years Used Date Never Assessed Sex Assigned at Date Recorded Not on file documented as of this encounter Plan of Treatment Not on filedocumented as of this encounter Procedures Procedure Name Priority Date/Time Associated Diagnosis Comme nts COVID-19 TEST [facility] Today 11/05/2019 13:11 LAB PCR EDT COVID-19 TESTING Routine 11/05/2019 13:11 Results for this EDT procedure are i n the results section. documented in this encounter Results COVID-19 TEST [facility] PCR (11/05/2019 13:11 EDT) Specimen Swab - Entire nasopharynx (body structur e) Performing Organization Address City/State/ZIP Code Phon e Number [facility] [address] [place] [address] SERVICES COVID-19 TESTING (11/05/2019 13:11 EDT) COVID-19 rt-PCR Negative Negative [facility] Result Comment: [facility] Negative results do not prec lude 2019-nCoV infection and should not be used as the sole basis for treatment or other patient management decisions. Negative results must be combined with clinical observa SERVICES tions, patient history, and epidemiological informatio n. This test was developed and its performance characteristics determined by [facility]. It has not been cleared or approved by the US Food and Drug Administration. FDA does not require this test to go through premarket FDA review. This t est is used for clinical purposes. It should not be regarded as investigational or for research. This laboratory is certified under the Clinical Laboratory Improvement Amendm ents (CLIA) as qualified to perform high complexity clinical laboratory testing. This test is based on the CD C COVID-19 Emergency Use Authorization (EUA) assay, with minor modification as defined by the FDA Performed on the [employer] 7500 Fast. Performing Lab [address] [facility] SERVICES Specimen Swab - Entire nasopharynx (body structur e) Performing Organization Address City/State/ZIP Code Phon e Number [facility] [address] [place] [address] SERVICES documented in this encounter Visit Diagnoses Not on filedocumented in this encounter
--- OUTSIDE RECORDS SUMMARY | 2022-04-19 13:41 | XMS_ITS | Encounter Summary ---
:1970 Author Organization [facility] Address [address] [place] [address] Care Team Providers Name Role Phone Unavailable Primary Care Provider Unavailable Encounter Details Date Type Department Care Team Description 04/14/1999 Hospital Encounter [facility]- Luis Chavarria [facility] MD Lesley [address] [facility] [address] [place] [address] [facility] [phone] [place] [phone] (Wo rk) Social History Tobacco Use Types [...]
--- OUTSIDE RECORDS SUMMARY | 2022-04-19 13:41 | XMS_ITS | Encounter Summary ---
:1970 Author Organization [facility] Address [address] [place] [id number] Care Team Providers Name Role Phone Unavailable Primary Care Provider Unavailable Encounter Details Date Type Department Care Team Description 04/19/2000 Hospital Encounter [facility]- Luis Sam MD [address] [address] [place], [place] [phone] (Wo rk) Social History Tobacco Use Types Packs/Day Years Used Date Never Assessed Sex Assigned at Date Recorded Not on file documented as of this encounter Discharge Disposition Disposition Code Departure Means Destination Auto Discharge documented in this encounter Plan of Treatment Not on filedocumented as of this encounter Procedures Procedure Name Priority Date/Time Associated Diagnosis Comme nts FINGER 2 OR MORE Routine 04/19/2000 18:37 Results for this VIEWS EST procedure are i n the results section. documented in this encounter Results FINGER 2 OR MORE VIEWS (04/19/2000 18:37 EST) Anatomical Region Laterality Modality Other Specimen Impressions [facility] - 04/26/2009 17 :05 EST IMPRESSION: 1. No evidence of acute displaced fractu re or dislocation. Should pain persist, follow up imaging is recom mended. D 04/20/00 T 04/23/00 /zainab Narrative [facility] - 04/26/2009 17 :05 EST PAIN, SWELLING RT THUMB S/P INJ R/O FX 3 VIEWS, RIGHT THUMB 04/19/00, 1835 hour s HISTORY: pain, swelling right thumb, s/p injury; r/o fx COMPARISON: none FINDINGS: Three views of the right thumb demonstra te normal bone mineral density and no evidence of acute displaced fract ure or dislocation. Procedure Note Josette Nick MD - 04/26/2009 PAIN, SWELLING RT THUMB S/P INJ R/O FX 3 VIEWS, RIGHT THUMB 04/19/00, 1835 hour s HISTORY: pain, swelling right thumb, s/p injury; r/o fx COMPARISON: none FINDINGS: Three views of the right thumb demonstra te normal bone mineral density and no evidence of acute displaced fract ure or dislocation. IMPRESSION IMPRESSION: 1. No evidence of acute displaced fractu re or dislocation. Should pain persist, follow up imaging is recom mended. D 04/20/00 T 04/23/00 /zainab Performing Organization Address City/State/ZIP Code Phon e Number [facility] [address] [facility] [address] [facility] [address] [place], [place] [address] documented in this encounter Visit Diagnoses Not on filedocumented in this encounter
--- OUTSIDE RECORDS SUMMARY | 2022-04-19 13:41 | XMS_ITS | Encounter Summary ---
:1970 Author Organization [facility] Address [address] [place] [address] Care Team Providers Name Role Phone Unavailable Primary Care Provider Unavailable Encounter Details Date Type Department Care Team Description 03/29/2001 Hospital Encounter [facility] Emergency, Emergency Department - [place], [address] [place] [address] [place], [place] [id number] Social History Tobacco Use Types Packs/Day Years Used Date Never Assessed Sex Assigned at Date Recorded Not on file documented as of this encounter Discharge Disposition Disposition Code Departure Means Destination Home or Self Care documented in this encounter Plan of Treatment Not on filedocumented as of this encounter Procedures Procedure Name Priority Date/Time Associated Comments Diagnosis CT HEAD WO CONTRAST Routine 03/29/2001 4:10 EDT R esults for this procedure are i n the results section. CREATININE Routine 03/29/2001 3:27 EDT Results for this procedure are i n the results section. HEMAGRAM & DIFF Routine 03/29/2001 3:27 EDT Resul ts for this procedure are i n the results section. PROLACTIN Routine 03/29/2001 3:27 EDT Results for this procedure are i n the results section. BUN Routine 03/29/2001 3:27 EDT Results for this procedure are i n the results section. CALCIUM Routine 03/29/2001 3:27 EDT Results for this procedure are i n the results section. ELECTROLYTES Routine 03/29/2001 3:27 EDT Results for this procedure are i n the results section. documented in this encounter Results CT HEAD WO CONTRAST (03/29/2001 4:10 EDT) Anatomical Region Laterality Modality Other Specimen Narrative [facility] - 04/27/2009 4: 44 EST HEADACHE AND SEVERAL DAYS THEN? SEIZURE R.O BLEED CT BRAIN WITHOUT CONTRAST: 03/29/01 0410 HOURS. HISTORY: Headache for several days, then followed by possible seizure. TECHNIQUE: Axial noncontrast scans from the foramen magnum to the vertex. FINDINGS: The ventricles and extra-axial CSF space s are normal for age. No sign of intracranial hemorrhage is present. N o mass effect or midline shift is seen. The orbits and paranasal sinuses are clear. CONCLUSION: Normal unenhanced head CT for age. /ashleigh Procedure Note Cullen Carreno MD - 04/27/2009 HEADACHE AND SEVERAL DAYS THEN? SEIZURE R.O BLEED CT BRAIN WITHOUT CONTRAST: 03/29/01 0410 HOURS. HISTORY: Headache for several days, then followed by possible seizure. TECHNIQUE: Axial noncontrast scans from the foramen magnum to the vertex. FINDINGS: The ventricles and extra-axial CSF space s are normal for age. No sign of intracranial hemorrhage is present. N o mass effect or midline shift is seen. The orbits and paranasal sinuses are clear. CONCLUSION: Normal unenhanced head CT for age. /ashleigh Performing Organization Address [facility] Phon e Number [facility] [address] [facility] [address] [facility] [address] [place], [place] [address] (ABNORMAL) PROLACTIN (03/29/2001 3:27 EDT) Pathologist Sig nature Prolactin 36.1 (H) 2.1 - 17.1 ng/ml [facility] Specimen Performing Organization Address [facility] Code Phon e Number [facility] [address] [place] [address] SERVICES [facility] [address] [place] [address] ELECTROLYTES (03/29/2001 3:27 EDT) Pathologist Sig nature Sodium 142 136 - 145 mEq/L [facility] Potassium 4.2 3.5 - 5.0 mEq/L [facility] Chloride 104 96 - 110 mEq/L [facility] CO2 27 24 - 30 mEq/L [facility] Specimen Performing Organization Address [facility] Code Phon e Number [facility] [address] [place] [address] SERVICES [facility] [address] [place] [address] CREATININE (03/29/2001 3:27 EDT) Pathologist Sig nature Creatinine 1.2 0.7 - 1.5 mg/dl [facility] Specimen Performing Organization Address City/[facility] Code Phon e Number [facility] [address] [place] [address] SERVICES [facility] [address] [place] [address] HEMAGRAM & DIFF (03/29/2001 3:27 EDT) Pathologist Sig nature WBC 7.72 4.0 - 10.4 K/cmm [facility] RBC 4.93 4.36 - 5.78 M/cmm [facility] Hemoglobin 14.9 13.8 - 17.3 gm/dl [facility] HCT 43.9 39.5 - 50.2 % [facility] MCV 89 81 - 95 fl [facility] MCH 30.2 27.6 - 33.0 pg [facility] MCHC 33.9 32.8 - 36.4 gm/dl [facility] PLT 228 141 - 320 K/cmm [facility] RDW-CV 12.5 11.8 - 14.1 % [facility] Neutrophils 58.6 45.5 - 79.7 % [facility] Lymphocytes 28.1 15.0 - 46.8 % [facility] Monocytes 10.2 1.8 - 12.0 % [facility] Eosinophils 1.9 0.6 - 6.9 % [facility] Basophils 1.2 0.2 - 1.4 % [facility] ABS Neutrophils 4.52 2.20 - 8.85 K/cmm [facility] ABS Lymphs 2.17 1.09 - 3.30 K/cmm [facility] ABS Monocytes 0.79 0.1 - 0.8 K/cmm [facility] ABS Eosinophils 0.15 0.03 - 0.61 K/cmm [facility] ABS Basophils 0.09 0.01 - 0.11 K/cmm [facility] Type of Diff: Automated [facility] Specimen Performing Organization Address City/[facility]/ZIP Code Phon e Number [facility] [address] [place] [address] SERVICES [facility] [address] [place] [address] CALCIUM (03/29/2001 3:27 EDT) Pathologist Sig nature Calcium 9.8 8.5 - 10.5 mg/dl [facility] Calculated Calcium 10.4 8.5 - 10.5 mg/dl [facility] Specimen Performing Organization Address [facility] Code Phon e Number [facility] [address] [place] [address] SERVICES [facility] [address] [place] [address] BUN (03/29/2001 3:27 EDT) Pathologist Sig nature BUN 18 10 - 26 mg/dl [facility] Specimen Performing Organization Address [facility] Phon e Number [facility] [address] [place] [address] SERVICES [facility] [address] [place] [address] documented in this encounter Visit Diagnoses Not on filedocumented in this encounter
--- OUTSIDE RECORDS SUMMARY | 2022-04-19 13:41 | XMS_ITS | Clinical Summary ---
:1970 Author Organization [facility] Address [address] [place] [address] Care Team Providers Name Role Phone Unavailable Primary Care Provider Unavailable Allergies No known active allergies Medications No known medications Active Problems No known active problems Encounters Date Type Specialty Care Team Description 03/23/2022 Lab Requisition Clinical Laboratory Ernesto Foote Encounter for screening for malignant neoplasm of colon; MD Demarcus Nausea with vom iting, unspecified from Last 3 Months Social History Tobacco Use Types Packs/Day Years Used Date Never Assessed Sex Assigned at Date Recorded Not on file Plan of Treatment Health Maintenance Due Date Last Done Comments Hepatitis C Screen 1970 Social Determinants Of Health (SDOH) 1970 COVID-19 Vaccine (#1) 1970 Lipid Profile Screening (Cholesterol) 1974 Behavioral Health Screen 1983 HIV Screening 1987 Advance Directive 1989 Preventive Care Visit 1989 Pertussis (Adult) Immunization 1990 Tetanus (Adult) Immunization 1990 Barium Enema (Colon Cancer Screening) 2016 Colonoscopy (Colon Cancer Screening) 2016 Colorectal Cancer Screening 2016 Fecal Blood Test (Colon Cancer Screening) 2016 Fecal DNA (Colon Cancer Screening) 2016 Sigmoidoscopy (Colon Cancer Screening) 2016 Shingles Immunization (1 of 2) 2021 Influenza Immunization (Adult) (#1) 2022 Procedures Procedure Name Priority Date/Time Associated Diagnosis Comme nts SURGICAL PATHOLOGY Today 03/22/2022 12:47 Resul ts for this EDT procedure are i n the results section. from Last 3 Months Results SURGICAL PATHOLOGY (03/22/2022 12:47 EDT) Note to Patient The following [facility] pathology results have [facility] been interpreted by your pathologist and may be available to you before your health provider has had the opportunity to review them. Please allow time for your provider to receive these results and explore management options, if applicable. Final Diagnosis A. DUODENUM, BIOPSY: [facility] - Duodenal mucosa with patch y peptic change and no other significant histopathologic abnormalities. [facility] B. DUODENAL BULB, BIOPSY: - Duodenal mucosa with patch y peptic change and no other significant histopathologic abnormalities. C. 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 - No Helicobacter-like microorganisms identified [...] unremarkable colonic mucosa. Attestation By the signature [facility] Electron rachel below, the attending [facility] joão lindsay by Noe, physician certifies Soraya Prajapati MD on that they have 1) 03/26/2022 at 1056 personally conducted a gross and/or microscopic examination of the described specimen(s), and/or personally interpreted the results of laboratory testing of the described specimen(s), and 2) personally rendered or confirmed the above diagnosis. Clinical History screening, [facility] unintentional wt loss, [facility] nausea + vomiting, change in bowel habots Gross Description A. [facility] The specimen is received in formalin labeled with ? Som Judge? and ? A? and ? duodenum Bx? are 2 mucosal fragments that measure 0.1 x 0.2 x 0.2 cm and 0.1 x 0.2 x 0.3 cm. The specimen is entirely submitted in 1 cassette. [facility] B. The specimen is received in formalin labeled with ? Som Judge? and ? B? and ? duodenal bulb [...] with ? Som W. Nu? and ? E? and ? distal esophagus [...] cassette. Jacqueline Gtz 03/23/2022 12:07 Performing Lab [facility] Scanned Images [facility] Specimen Tissue - Entire colon [...] Organization Address City/State/ZIP Code Phon e Number [facility] [address] [place] [address] from Last 3 Months Insurance Payer Benefit Plan / Subscriber ID Effective Phone Address T ype Group Dates BCBS P [facility] [id number] 2018-Prese [phone] 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
--- OUTSIDE RECORDS SUMMARY | 2022-04-19 13:41 | XMS_ITS | Encounter Summary ---
:1970 Author Organization [facility] Address [address] [place] [address] Care Team Providers Name Role Phone Unavailable Primary Care Provider Unavailable Encounter Details Date Type Department Care Team Description 07/08/2021 Lab Requisition [facility] Outr Resulting Lab, Pathology & Laboratory Provider General acute hospital [address] [place], [place] [id number] Social History Tobacco Use Types Packs/Day Years Used Date Never Assessed Sex Assigned at Date Recorded Not on file documented as of this encounter Plan of Treatment Not on filedocumented as of this encounter Procedures Procedure Name Priority Date/Time Associated Diagnosis Comme nts COVID-19 TEST [facility] Today 07/07/2021 14:30 LAB PCR EST COVID-19 TESTING Routine 07/07/2021 14:30 Results for this EST procedure are i n the results section. documented in this encounter Results COVID-19 TEST [facility] PCR (07/07/2021 14:30 EST) Specimen Swab Performing Organization Address City/State/ZIP Code Phon e Number [facility] [address] [place] [address] SERVICES COVID-19 TESTING (07/07/2021 14:30 EST) COVID-19 rt-PCR Negative Negative [facility] Result Comment: [facility] This test has not been FDA c leared or approved. This test has been authorized by FDA under an EUA for use by authorized laboratories. This test has been authorized only for detection of nucleic acid fro SERVICES m 2019-nCoV, not for any oth er viruses or pathogens. This test is only authorized for the duration of the declaration that circumstances exist justifying the authorization of emergency use of in vitro d iagnostic tests for detectio n and/or diagnosis of 2019-nCoV under section 564(b)(1) of Act, 21 U.S.C ?? 360bbb-3(b) (1), unless the authorization is terminated or revoked sooner. Negative results do not prec lude 2019-nCoV infection and should not be used as the sole basis for treatment or other patient management decisions. Negative results must be combined with clinical observa tions, patient history, and epidemiological informatio n. Testing was performed using the lizandro SARS-CoV-2 assay ([employer] on the Lizandro 6800 System Performing Lab [facility] [address] [facility] Lab [facility] SERVICES Specimen Swab Performing Organization Address City/State/ZIP Code Phon e Number [facility] [address] [place] [address] SERVICES documented in this encounter Visit Diagnoses Not on filedocumented in this encounter
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
--- OUTSIDE RECORDS SUMMARY | 2022-04-19 13:41 | XMS_ITS | Encounter Summary ---
:1970 Author Organization [facility] Address [address] [place] [address] Care Team Providers Name Role Phone Unavailable Primary Care Provider Unavailable Encounter Details Date Type Department Care Team Description 12/12/2000 Hospital Encounter [facility]- Luis Chavarria [facility] MD Lesley [address] [facility] [address] [place] [address] [facility] [phone] [place] [phone] (Wo rk) Social History Tobacco Use Types Packs/Day Years Used Date Never Assessed Sex Assigned at Date Recorded Not on file documented as of this encounter Discharge Disposition Disposition Code Departure Means Destination Auto Discharge documented in this encounter Plan of Treatment Not on filedocumented as of this encounter Procedures Procedure Name Priority Date/Time Associated Diagnosis Comme nts TIBIA FIBULA 2 Routine 12/12/2000 12:20 Results f or this VIEWS EDT procedure are i n the results section. documented in this encounter Results TIBIA FIBULA 2 VIEWS (12/12/2000 12:20 EDT) Anatomical Region Laterality Modality Other Specimen Narrative [facility] - 04/26/2009 23 :45 EST R/O HARDWARE DISPLACEMENT ??S/P TIBIAL TENDON REPAIR ??C/O SUDDEN PAIN I N THE AREA OF SURGERY TWO VIEWS OF THE RIGHT TIBIA. FINDINGS: There is an ossicle off of the distal fi bula. The metallic screws in the proximal tibia are documented. No re cent fracture or dislocation, however, is seen. /tns Procedure Note Jorge Luis Deluna MD - 04/26/2009 R/O HARDWARE DISPLACEMENT S/P TIBIAL TEN DON REPAIR C/O SUDDEN PAIN I N THE AREA OF SURGERY TWO VIEWS OF THE RIGHT TIBIA. FINDINGS: There is an ossicle off of the distal fi bula. The metallic screws in the proximal tibia are documented. No re cent fracture or dislocation, however, is seen. /tns Performing Organization Address City/State/ZIP Code Phon e Number [facility] [address] [facility] [address] [facility] [address] [place], [place] [address] documented in this encounter Visit Diagnoses Not on filedocumented in this encounter
--- OUTSIDE RECORDS SUMMARY | 2022-04-19 13:41 | XMS_ITS | Encounter Summary ---
:[address] [facility] Address [address] [place] [address] Care Team Providers Name Role Phone Unavailable Primary Care Provider Unavailable Encounter Details Date Type Department Care Team Description 01/30/2000 Hospital Encounter [facility]- Luis Chavarria [facility] MD Lesley [address] [facility] [address] [place] [address] [facility] [phone] [place] [address] (Wo rk) Social History Tobacco Use Types [...]
--- OUTSIDE RECORDS SUMMARY | 2022-04-19 13:41 | XMS_ITS | Encounter Summary ---
:1970 Author Organization [facility] Address [address] [place] [address] Care Team Providers Name Role Phone Unavailable Primary Care Provider Unavailable Encounter Details Date Type Department Care Team Description 10/06/1999 Hospital Encounter [facility]- Luis Chavarria [facility] MD Lesley [address] [facility] [address] [place] [address] [facility] [phone] [place] [address] (Wo rk) Social History Tobacco Use Types [...]
--- OUTSIDE RECORDS SUMMARY | 2022-04-19 13:41 | XMS_ITS | Encounter Summary ---
:[address] [facility] Address [address] [place] [address] Care Team Providers Name Role Phone Unavailable Primary Care Provider Unavailable Encounter Details Date Type Department Care Team Description 03/04/2007 Results Only [facility] - Lina Hernadez MD [address] [place] [address] [place], [place] [id number] [phone] Social History Tobacco Use Types Packs/Day Years Used Date Never Assessed Sex Assigned at Date Recorded Not on file documented as of this encounter Plan of Treatment Not on filedocumented as of this encounter Procedures Procedure Name Priority Date/Time Associated Diagnosis Comme nts CYTOPATHOLOGY Routine 03/04/2007 0:00 EDT Results for this procedure are i n the results section . documented in this encounter Results CYTOPATHOLOGY (03/04/2007 0:00 EDT) Pathology Report: CYTOPATHOLOGY REPORT [facility] Reports generated via electronic interface contain navjot ginal data; however they are lacking the format of the original re port. Caution should be taken when reading/interpreting unfo rmatted reports. Name: ? CLAUDETTE JUDGE ? Accession #: ? [id number] : ? 1970 (Age: 36) ??M ?Collect Date: ? 02/15 Location: ? [facility] ? Receive Date : ? 03/04/2007 Provider: ? LINA COLLINS MD Copy to: ?FIDEL NICKOLAS BALANCE BRIDGE INSPECTOR ? CYTOLOGIC DIAGNOSIS: ? Urine, bladder washing, cytologic evaluation: - Morphologic description only. See comment. ? COMMENT: ? The specimen is markedly paucicel lular with rare groups of transitional cells present. This low cellularity precludes further evaluation. (Dr. Vasquez)/[facility] Document reviewed and electronically signed by: ? ABDELRAHMAN SUÁREZ MD Report Date: ??03/05/2007 13:35 By the signature above, the attending physician certif ies that he/she has personally conducted a gross and/or microscopic examin ation of the described specimens and rendered or confirmed the above diagnosi s. Specimen Type: ? Urine, Bladder Washing Clinical History: ? Hematuria ? Gross Description: ? 1 tube of Cytolyt was received and processed by selective cellular enhancement technique. ? End of Report Specimen Performing Organization Address City/State/ZIP Code Phon e Number [facility] [address] [place] [address] [facility] [address] [place] [address] documented in this encounter Visit Diagnoses Not on filedocumented in this encounter
--- OUTSIDE RECORDS SUMMARY | 2022-04-19 13:41 | XMS_ITS | Encounter Summary ---
:1970 Author Organization [facility] Address [address] [place] [address] Care Team Providers Name Role Phone Unavailable Primary Care Provider Unavailable Encounter Details Date Type Department Care Team Description 07/26/[address] [facility] Outr Resulting Lab, Pathology & Laboratory Provider [facility] [address] [place], [place] [address] Social History Tobacco Use Types Packs/Day Years Used Date Never Assessed Sex Assigned at Date Recorded Not on file documented as of this encounter Plan of Treatment Not on filedocumented as of this encounter Procedures Procedure Name Priority Date/Time Associated Diagnosis Comme nts COVID-19 TEST [facility] Today 07/25/2020 19:18 LAB PCR EST COVID-19 TESTING Routine 07/25/2020 19:18 Results for this EST procedure are i n the results section. documented in this encounter Results COVID-19 TEST [facility] LAB PCR (07/25/2020 19:18 EST) Specimen Swab - Entire nasopharynx (body structur e) Performing Organization Address City/State/ZIP Code Phon e Number [facility] [address] [place] [address] SERVICES COVID-19 TESTING (07/25/2020 19:18 EST) COVID-19 rt-PCR Negative Negative [facility] Result Comment: [facility] This test has not been FDA c leared or approved. This test has been authorized by FDA under an EUA for use by authorized laboratories. This test has been authorized only for detection of nucleic acid fro SERVICES m 2018-nCoV, not for any oth er viruses or [...] developed and its performance characteristics determined by [facility]. It has not been cleared or [...] defined by the FDA Performed on the [employer] 7 Flex RT-PCR System. Performing Lab [facility] Lab [facility] SERVICES Specimen Swab Performing Organization Address City/State/ZIP Code Phon e Number [facility] [address] [place] [address] SERVICES documented in this encounter Visit Diagnoses Not on filedocumented in this encounter
--- OUTSIDE RECORDS SUMMARY | 2022-04-19 13:41 | XMS_ITS | Encounter Summary ---
:1970 Author Organization [facility] Address [address] [place] [address] Care Team Providers Name Role Phone Unknown, Provider Primary Care Provider Riley Larios MD Primary Care Provider [phone] Encounter Details Date Type Department Care Team Description 02/01/2000 Hospital Encounter [facility] MD Gladis [address] [facility] [address] [place] [address] [place] [address] Social History Tobacco Use Types Packs/Day Years Used Date Never Assessed Sex Assigned at Date Recorded Not on file documented as of this encounter Plan of Treatment Not on filedocumented as of this encounter Procedures Procedure Name Priority Date/Time Associated Comments Diagnosis BACTERIAL Routine 02/01/2000 10:25 Results for this CULTURE/SMEAR, EDT procedure are in RESPIRATORY the results section. documented in this encounter Results BACTERIAL CULTURE/SMEAR, RESPIRATORY (02/01/2000 10:25 EDT) Specimen Description Sputum [facility] Gram Smear Result No polys seen [facility] Squamous epithelial cells Few Mixed gram positive and gram negative organisms Smear suggests minimal or no inflammation. Result Smear suggests minimal or no inflammation. [facility] Consult Pathologist for further testing within 7 days LAB Report Status Final [facility] [id number] LAB Specimen Performing Organization Address City/State/ZIP Code Phon e Number [facility] [address] [place] [address] SERVICES [facility] [address] [place] [address] documented in this encounter Visit Diagnoses Not on filedocumented in this encounter Care Teams Diesel Bus Mechanic Relationship Specialty Start Date End Date Unknown, Provider, PCP - General 05/12/13 05/14/13 Riley Larios MD PCP - General 05/15/13 01/28/[address] [place] [address] documented as of this encounter
--- OUTSIDE RECORDS SUMMARY | 2022-04-19 13:41 | XMS_ITS | Encounter Summary ---
:1970 Author Organization [facility] Address [address] [place] [address] Care Team Providers Name Role Phone Unknown, Provider Primary Care Provider Riley Larios MD Primary Care Provider [phone] Encounter Details Date Type Department Care Team Description 04/13/1999 Hospital Encounter [facility]- Luis Chavarria [facility] MD Lesley [address] [facility] [address] [place] [address] [facility] [phone] [place] [address] (Wo rk) Social History Tobacco Use Types Packs/Day Years Used Date Never Assessed Sex Assigned at Date Recorded Not on file documented as of this encounter Plan of Treatment Not on filedocumented as of this encounter Visit Diagnoses Not on filedocumented in this encounter Care Teams Independent Living Specialist Relationship Specialty Start Date End Date Unknown, MD María PCP - General 05/12/13 05/14/13 Riley Larios MD PCP - General 05/15/13 01/28/[address] [place] [address] documented as of this encounter
--- OUTSIDE RECORDS SUMMARY | 2022-04-19 13:41 | XMS_ITS | Encounter Summary ---
:1970 Author Organization [facility] Address [address] [place] [address] Care Team Providers Name Role Phone Unavailable Primary Care Provider Unavailable Encounter Details Date Type Department Care Team Description 08/04/1999 - Hospital Encounter [facility], 08/05/1999 Emergency Department - MD Jonah Main Sheldon [address] [place], [place] [id number] Social History Tobacco Use Types Packs/Day Years [...]
--- NOTE | 2022-04-19 14:00 | DI.RAD_ITS ---
Exam(s) XR PORTABLE CHEST AP EXAM: XR PORTABLE CHEST AP CLINICAL HISTORY: CP/SOB. TECHNIQUE: 2D digital imaging was performed. COMPARISON: CR XR CHEST 2V PA LATERAL from 12/01/2018 FINDINGS: LUNGS: Clear. No pleural abnormality seen. HEART: Normal. MEDIASTINUM: Normal. OTHER FINDINGS: None. IMPRESSION: No acute pulmonary findings. DATA REPOSITORY: RADIATION DOSE DELIVERED: Total DLP
[2022-04-19] MEDS: Normal Saline 1,000 ML 1000 ML IV (14:27)
[2022-04-19] MEDS: Ketorolac 15 MG/ML VIAL IVP (14:28)
[2022-04-19] MEDS: Prochlorperazine 10 MG/2 ML VIAL IVP (14:29)
--- NOTE | 2022-04-19 15:21 | W.ED.GENAD ---
Discharge Plan Disposition Patient Disposition: HOME Condition: Improving Discharge Details Clinical Impression: Viral respiratory illness, Migraine headache, Chest pain Primary Care Provider: Kaushik Mccauley ED Provider: Willy Saunders Allen Meds and New Rx's Prescriptions: No Action vitamin B complex [B Complex 1] Tablet 1 tab PO DAILY magnesium 250 mg tablet 1,000 mg PO DAILY albuterol sulfate [Ventolin HFA] 90 mcg/actuation HFA aerosol inhaler 2 puff IH Q6H PRN (Reason: shortness of breath or wheezing) Qty: 8.5 0RF prasterone (dhea) [DHEA] 25 mg capsule 25 mg PO DAILY loratadine [Claritin] 10 mg tablet 10 mg PO DAILY Qty: 90 4RF sertraline 50 mg tablet 50 mg PO DAILY Qty: 90 3RF Lactobacillus acidophilus 100 mg (1 billion cell) capsule 100 mg PO DAILY Qty: 90 3RF tamsulosin 0.4 mg capsule 0.4 mg PO DAILY Qty: 90 3RF levothyroxine 50 mcg capsule 50 mcg PO DAILY Qty: 90 1RF ropinirole 0.5 mg tablet 0.5 mg PO QHS PRN (Reason: restless leg(s)) Qty: 90 1RF Rx Instructions: administer 1-3 hours before bedtime sertraline 100 mg tablet 100 mg PO DAILY Qty: 90 3RF cholecalciferol (vitamin D3) [Vitamin D3] 1,000 UNIT capsule 2 cap PO DAILY acetaminophen [Tylenol] 325 mg Tablet 650 mg PO ONCE PRN potassium citrate-citric acid 3,300-1,002 mg Packet 1 packet PO DAILY ibuprofen 200 mg Tablet 200 mg PO Q6H PRN Discharge Instructions Instructions: Viral Syndrome (ED) Additional Instructions: You were seen in the ED with viral-like illness and migraine headache with associated chest pain and shortness of breath. You were treated with fluids, prochlorperazine and ketorolac. You did have a reaction to the prochlorperazine which responded to diphenhydramine and lorazepam. Your EKG, laboratory studies, chest x-ray are all reassuring. He feels much improved and this is all likely related to viral illness. He should plan on resting and taking it easy this weekend. Plenty of fluids to stay hydrated. Use acetaminophen or ibuprofen as needed for discomfort. Follow-up with primary care next week if not improving. Return to ED for any neurologic change, lethargy, new or worsening chest pain, persistent shortness of breath, vomiting, other concerns. Medical Decision Making Patient sent to ED from primary care with chest pain and shortness of breath in the setting of viral type symptoms and migraine type headache. He does have pharyngeal erythema and a large tender lymph node left neck. Lungs are clear and his saturations are normal. Had negative COVID, flu, strep at PCP. His EKG is sinus rhythm with no acute ST changes. Doubt that his chest pain is cardiac in nature and is more likely related to his presumed viral illness. IV established and fluids started. Prochlorperazine and ketorolac ordered for his headache and his chest pain. Chest x-ray and laboratory studies ordered. Patient developed severe anxiety and some akathisia subsequent to the prochlorperazine. He was given IV Benadryl and oral Ativan for this. Patient's initial labs were drawn and never sent. Labs were eventually obtained 15:30. White count is minimally elevated 11.4. Chemistries are normal. Magnesium is only slightly low at 1.6. Liver function normal. Chest x-ray normal per radiology. His troponin is negative and given the late lab draw and the fact that he has had pain since this morning do not feel that this is cardiac related and he does not need to wait for second troponin. His anxiety and akathisia resolved with Benadryl and Ativan. His headache and discomfort is resolved with the prochlorperazine and ketorolac. Feel he has viral illness with cervical adenopathy and migraine headache. He will go home to rest for the weekend, drink plenty of fluids, use acetaminophen or ibuprofen as needed for pain. Return precautions discussed. Lab Data Lab results reviewed: Yes I reviewed the patient's lab results. ECG Data Attestation: I personally reviewed and interpreted this ECG (s) as follows: Prior ECG tracings: not available for review Interpretation: See EKG HPI General Mode of arrival: ambulatory. Date/Time Provider Initiated Documentation: 04/19/22 14:09. Limitations to Documentation: no limitations. Information obtained by: patient and RN/MD. HPI Narrative: Patient presents to ED from [facility] with complaint of chest pain and shortness of breath. Patient had woke at around 1 AM with a sore throat. Subsequently developed headache which has now turned into a migraine with nausea and photophobia. He does have history of migraines and this seems not any different than previous migraines. About 2 to 3 hours prior to being seen [facility] he developed chest pain radiating to the back, shortness of breath, mild cough. He denies fever at any time. He had negative COVID/influenza and negative strep at [facility]. He denies any abdominal pain. He denies any neurologic change. He denies any leg pain or swelling. Related Data Home Medications Medication Instructions Recorded Confirmed cholecalciferol (vitamin D3) 25 2 cap PO DAILY 09/09/15 02/26/22 mcg (1,000 unit) capsule (Vitamin D3) magnesium 250 mg tablet 1,000 mg PO DAILY 02/23/19 02/26/22 vitamin B complex (B Complex 1 1 tab PO DAILY 02/23/19 02/26/22 tablet) albuterol sulfate 90 mcg/actuation 2 puff inhalation Q6H PRN 04/27/19 02/26/22 aerosol inhaler (Ventolin HFA) shortness of breath or wheezing #8.5 grams acetaminophen 325 mg tablet 650 mg PO ONCE PRN 01/08/20 02/26/22 (Tylenol) potassium citrate-citric acid 1 packet PO DAILY 07/27/20 02/26/22 3,300 mg-1,002 mg oral packet prasterone (dhea) 25 mg capsule 25 mg PO DAILY 04/17/21 02/26/22 (DHEA) loratadine 10 mg tablet (Claritin) 10 mg PO DAILY #90 tabs 05/19/21 02/26/22 ibuprofen 200 mg tablet 200 mg PO Q6H PRN 08/17/21 02/26/22 Lactobacillus acidophilus 100 mg 100 mg PO DAILY #90 caps 12/05/21 02/26/22 (1 billion cell) capsule tamsulosin 0.4 mg capsule 0.4 mg PO DAILY #90 caps 01/04/22 02/26/22 levothyroxine 50 mcg capsule 50 mcg PO DAILY #90 caps 01/10/22 02/26/22 sertraline 50 mg tablet 50 mg PO DAILY #90 tabs 02/26/22 02/26/22 ropinirole 0.5 mg tablet 0.5 mg PO QHS PRN restless leg(s) 03/14/22 #90 tabs sertraline 100 mg tablet 100 mg PO DAILY #90 tabs 03/14/22 Previous Rx's Medication Instructions Recorded albuterol sulfate 90 mcg/actuation 2 puff inhalation Q6H PRN 04/27/19 aerosol inhaler (Ventolin HFA) shortness of breath or wheezing #8.5 grams loratadine 10 mg tablet (Claritin) 10 mg PO DAILY #90 tabs 05/19/21 Lactobacillus acidophilus 100 mg 100 mg PO DAILY #90 caps 12/05/21 (1 billion cell) capsule tamsulosin 0.4 mg capsule 0.4 mg PO DAILY #90 caps 01/04/22 levothyroxine 50 mcg capsule 50 mcg PO DAILY #90 caps 01/10/22 sertraline 50 mg tablet 50 mg PO DAILY #90 tabs 02/26/22 ropinirole 0.5 mg tablet 0.5 mg PO QHS PRN restless leg(s) 03/14/22 #90 tabs sertraline 100 mg tablet 100 mg PO DAILY #90 tabs 03/14/22 Allergies Allergy/AdvReac Type Severity Reaction Status Date / Time prochlorperazine AdvReac Severe Other (See Verified 04/19/22 15:10 Comment) erythromycin base AdvReac Intermediate Vomiting Verified 04/19/22 12:51 [Erythromycin Base] cigarette smoke Allergy Uncoded 04/19/22 12:51 General Stated Complaint: GenMedical YADY: 3 Review of Systems Narrative: 03/30 Review of Systems completed and is negative except as stated above in HPI (Systems reviewed: Const, Eyes, ENT, Resp, CV, GI, , MSK, Skin, Neuro) PFSH All Active Problems (Updated 04/19/22 @ 16:32 by Willy Saunders MD) Viral respiratory illness (Acute) Migraine headache (Chronic) Chest pain (Acute) TBI (traumatic brain injury) (Acute) Pt. states he did not have a TBI, but a was concussion COVID-19 (Acute) 09/14/21 Abdominal pain (Acute) Allergies (Acute) Right-sided sensorineural hearing loss (Acute) Low back pain (Acute) Urolithiasis (Chronic) Pelvic pain in male (Acute) LLQ abdominal pain (Acute) History of narcotic addiction (Acute) does not want narcotics offered to him at any time IBS (irritable bowel syndrome) (Chronic) Peripheral polyneuropathy (Acute) Depression (Chronic 09/03/17) Diverticulosis of colon without diverticulitis (Chronic) per colonoscopy 09/14/09-Dr. Mcdermott Medical History Fracture of lumbar spine Gastroesophageal reflux disease (06/29/13) Hypothyroidism Migraines PTSD (post-traumatic stress disorder) (09/03/17) Renal calculi Surgical History History of right knee surgery History of shoulder surgery Family History Mother No problems noted. Father Diabetes Melanoma Heart disease Hyperlipidemia Sister Multiple sclerosis Substance abuse Brother Asthma Alcohol abuse Substance abuse Maternal Grandfather , 70 Alcohol abuse Cancer Paternal Grandfather , in his 50s Tuberculosis Maternal Grandmother , 72 Alcohol abuse Asthma Cancer Paternal Grandmother Cancer Son Asthma Daughter Depression Anxiety Social History Smoking/Tobacco Use Status: Never Tobacco: How many years used: 10 Second Hand Exposure: Yes Smoking risk assessment performed?: Yes Alcohol Intake: former Drug use: Current Sobriety Substance use type: former substance user Details: 26 years clean per pt Caregiver/Support person: No Household members: spouse and children Housing: house Communication Needs: None Do you need help understanding health information?: Never Pets and animals: Yes Pets and animals: dog(s) Sexually active: Yes Do you think of yourself as: straight/heterosexual Current gender identity: male What is your relationship status?: How often do you talk on the phone with friends or family?: once per week How often do you get together with friends or relatives?: once per week How often do you attend yazdanism or confucianism services?: decline to answer Do you belong to any clubs or organized social groups?: no Panel score (0-1 are the most socially isolated patients): 1 What type of physical activity do you participate in: walking and other Details: PiYo Duration: < 15 minutes/day Frequency: 1-2 times per week Ilda/Lutheran: None Special ilda needs: No Seatbelt use: always Helmet use: Yes Helmet use: sometimes Drive intox or ride w/intox water taxi 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 Exam Narrative Exam Narrative: Const: WDWN male in dark room with washcloth over eyes HEENT: NC/AT. Normal facial exam. TMs are clear bilaterally. Oropharynx with erythema but no edema, exudate, ulcerations. Neck: Supple. Trachea midline. A couple of large tender lymph nodes left mandibular area. Lungs: Normal respiratory effort. Lungs are clear. Cor: RRR without murmur/gallop. Good radial pulses. GI: Soft. NT/ND. No guarding or rebound. Neuro: A+O x 3. Normal speech, mentation, gait. Cranial nerves II - XII grossly intact. No gross motor or sensory deficit. Ext: No C/C/E. No calf tenderness. Skin: Warm and dry without rash. Course Vital Signs Vital signs: Vital Signs Temperature 99.0 F 04/19/22 13:42 Pulse 66 04/19/22 13:42 Respiratory Rate 12 04/19/22 13:42 Blood Pressure 114/79 04/19/22 13:42 Pulse Oximetry 98 04/19/22 13:42 Temperature 99.0 F 04/19/22 13:42 Temperature Source Oral 04/19/22 13:42 Pulse 66 04/19/22 13:42 Respiratory Rate 12 04/19/22 13:42 Blood Pressure 114/79 04/19/22 13:42 Blood Pressure Position Sitting 04/19/22 13:42 Pulse Oximetry 98 04/19/22 13:42 Oxygen Delivery Method Room Air 04/19/22 13:42 Oxygen Flow Rate 0 04/19/22 13:42 Pain Level 8 04/19/22 14:29
[2022-04-19] MEDS: LORazepam 0.5 MG TAB PO (15:22)
[2022-04-19] MEDS: diphenhydrAMINE 50 MG/ML VIAL 25 MG IVP (15:24)
[2022-04-19 15:41] LABS: Abs Immature Grans 0.03 10^3/uL (0.0-0.06); Absolute Basophil Count 0.03 10^3/uL (0.0-0.2); Absolute Eosinophil Count 0.01 10^3/uL (0.0-0.7); Absolute Lymphocyte Count 1.84 10^3/uL (1.2-3.4); Absolute Monocyte Count 1.05 10^3/uL (0.1-0.8); Absolute Neutrophil Count 8.44 10^3/uL (1.2-6.7); Basophils % 0.3; Eosinophils % 0.1; HCT 42.5 % (40.0-50.0); HGB 14.2 g/dL (13.5-17.5); Immature Grans % 0.3; Lymphocytes % 16.1; MCHC 33.4 % (32.0-36.0); MCV 90 fL (80-95); MPV 9.3 fL (8.0-11.0); Monocytes % 9.2; Platelet Count 193 10^3/uL (130-400); RBC 4.73 10^6/uL (4.36-5.78); RDW 12.1 % (11.8-14.1); RDW-SD 40.2 fL; WBC 11.41 10^3/uL (4.4-10.8)
[2022-04-19 15:58] LABS: ALT 32 U/L (16-63); AST 19 U/L (15-37); Albumin 3.8 g/dL (3.4-5.0); Alkaline Phosphatase 76 U/L (46-116); Anion Gap 8.4 mmol/L (3-11); BUN 16 mg/dL (7-18); Bilirubin, Total 0.8 mg/dL (0.2-1.0); CO2 25.6 mmol/L (21.0-32.0); CREATININE 1.1 mg/dL (0.70-1.30); Calcium 8.6 mg/dL (8.5-10.1); Chloride 105 mmol/L (98-107); Estimated GFR 81.28 (mL/min/1.73m2); Glucose 101 mg/dL (74-106); Magnesium 1.6 mg/dL (1.8-2.4); Potassium 3.9 mmol/L (3.5-5.1); Sodium 139 mmol/L (136-145); Total Protein 7.7 g/dL (6.4-8.2); Troponin I < 50 ng/L (<or=60)
== END 2022-04-19 16:56 | disposition home or self-care (01) ==
PROVIDERS: Emergency Provider Emergency Medicine; PCP Nurse Practitioner Family
DX: J98.8 Other specified respiratory disorders (principal); B97.89 Other viral agents as the cause of diseases classified elsewhere; G43.909 Migraine, unspecified, not intractable, without status migrainosus; R07.9 Chest pain, unspecified
CPT/HCPCS: 80053; 93005; 96361; 96374; 96375; 99284; 71045; 83735; 84484; 85025; 93010; J0780; J1200; J1885

== ENCOUNTER 2022-09-18 03:12 | Outpatient (CLI) | payer BC, SELFPAY ==
[2022-09-18 12:58] LABS: TSH (W/Ref FT4) 5.09 uIU/mL (0.36-3.74)
[2022-09-18 13:33] LABS: FREE T4 0.62 ng/dL (0.76-1.46)
== END 2022-09-18 03:13 | disposition home or self-care (01) ==
LOC: LOS 03:12
PROVIDERS: PCP Nurse Practitioner Family; Visit Provider Nurse Practitioner Family
DX: E03.9 Hypothyroidism, unspecified (principal)
CPT/HCPCS: 36415; 84439; 84443

== ENCOUNTER 2023-03-06 16:47 | Outpatient (CLI) | payer BC, SELFPAY ==
[2023-03-06 14:10] LABS: Hemoglobin A1C 5.5 % (<5.7)
[2023-03-06 14:18] LABS: TSH (W/Ref FT4) 4.12 uIU/mL (0.36-3.74)
[2023-03-06 14:36] LABS: FREE T4 0.75 ng/dL (0.76-1.46)
[2023-03-06 23:10] LABS: PSA, Screening 0.2 ng/mL (<=3.5)
[2023-03-12 14:57] LABS: Testosterone, Free 8.88 ng/dL (4.06-15.6); Testosterone, Total 258 ng/dL (240-950)
== END 2023-03-06 16:48 | disposition home or self-care (01) ==
LOC: LBO 16:47
PROVIDERS: Nurse Practitioner Psychiatric/Mental Health; Visit Provider Nurse Practitioner Gerontology
DX: F43.12 Post-traumatic stress disorder, chronic (principal); N50.811 Right testicular pain; N50.812 Left testicular pain; E66.8 Other obesity; R31.9 Hematuria, unspecified; R10.32 Left lower quadrant pain; N20.0 Calculus of kidney; Z12.5 Encounter for screening for malignant neoplasm of prostate; E03.9 Hypothyroidism, unspecified; Z79.899 Other long term (current) drug therapy
CPT/HCPCS: 36415; 84153; 84402; 84403; 83036; 84439; 84443

== ENCOUNTER 2023-09-03 09:15 | Emergency (ER) | payer BC, SELFPAY ==
[2023-09-03 09:22] VITALS: BP 129/108; PULSE 74; RESP 22; TEMP 36.7; O2SAT 98
--- NOTE | 2023-09-03 09:40 | ED.GENADUL_ITS ---
Discharge Plan Disposition Patient Disposition: Home Condition: Improving Discharge Details Chief Complaint: Nk/Back Pain Clinical Impression: Back pain Primary Care Provider: Sb Jones ED Provider: Armen Dykes Home Meds and New Rx's Prescriptions: No Action vitamin B complex [B Complex 1] Tablet 1 tab PO DAILY magnesium 250 mg tablet 1,000 mg PO DAILY albuterol sulfate [Ventolin HFA] 90 mcg/actuation HFA aerosol inhaler 2 puff IH Q6H PRN (Reason: shortness of breath or wheezing) Qty: 8.5 0RF tamsulosin 0.4 mg capsule 0.4 mg PO DAILY Qty: 90 3RF desvenlafaxine 100 mg tablet extended release 24 hr 100 mg PO DAILY dicyclomine 20 mg tablet 20 mg PO BID Qty: 7 0RF levothyroxine 50 mcg tablet 50 mcg PO DAILY Qty: 90 3RF loperamide [Imodium A-D] 2 mg tablet 2 mg PO Q6H PRN (Reason: loose stool) Qty: 90 3RF Lactobacillus acidophilus 100 mg (1 billion cell) capsule 100 mg PO DAILY Qty: 90 3RF cholecalciferol (vitamin D3) [Vitamin D3] 1,000 UNIT capsule 2 cap PO DAILY acetaminophen [Tylenol] 325 mg Tablet 650 mg PO ONCE PRN ibuprofen 200 mg Tablet 200 mg PO Q6H PRN gabapentin 300 mg capsule 300 mg PO ONCE Patient Comments: Take 1 capsule by mouth at night Discharge Instructions Instructions: Back Pain (ED) Additional Instructions: Please follow-up with pain clinic and your primary care physician. HPI General Date/Time Provider Initiated Documentation: 09/03/23 09:27 . HPI Narrative: 53-year-old male extensive history of lumbar spinal issues including osteoarthritis bulging disc, follows at [facility] pain clinic, presents with low back discomfort radiating into his legs since injuring his back while lifting a trailer 2 days ago. Discomfort worse after long periods of immobilization, is able to ambulate however does experience discomfort in his right lower extremity more than his left, some paresthesias to legs; no bowel or bladder issues although he does endorse that his GI tract is dysregulated when his back is acting up. Denies fevers or direct trauma. Denies history of spinal hardware. Related Data Home Medications Medication Instructions Recorded Confirmed cholecalciferol (vitamin D3) 25 2 cap PO DAILY 09/09/15 09/03/23 mcg (1,000 unit) capsule (Vitamin D3) magnesium 250 mg tablet 1,000 mg PO DAILY 02/23/19 09/03/23 vitamin B complex (B Complex 1 1 tab PO DAILY 02/23/19 09/03/23 tablet) albuterol sulfate 90 mcg/actuation 2 puff inhalation Q6H PRN 04/27/19 09/03/23 aerosol inhaler (Ventolin HFA) shortness of breath or wheezing #8.5 grams acetaminophen 325 mg tablet 650 mg PO ONCE PRN 01/08/20 09/03/23 (Tylenol) ibuprofen 200 mg tablet 200 mg PO Q6H PRN 08/17/21 09/03/23 tamsulosin 0.4 mg capsule 0.4 mg PO DAILY #90 caps 06/28/22 09/03/23 dicyclomine 20 mg tablet 20 mg PO BID #7 tabs 09/27/22 09/03/23 levothyroxine 50 mcg tablet 50 mcg PO DAILY #90 tabs 09/28/22 09/03/23 Lactobacillus acidophilus 100 mg 100 mg PO DAILY #90 caps 10/03/22 09/03/23 (1 billion cell) capsule loperamide 2 mg tablet (Imodium 2 mg PO Q6H PRN loose stool #90 10/03/22 09/03/23 A-D) tabs desvenlafaxine 100 mg 100 mg PO DAILY 03/06/23 09/03/23 tablet,extended release 24 hr gabapentin 300 mg capsule 300 mg PO ONCE 09/03/23 09/03/23 Previous Rx's Medication Instructions Recorded albuterol sulfate 90 mcg/actuation 2 puff inhalation Q6H PRN 04/27/19 aerosol inhaler (Ventolin HFA) shortness of breath or wheezing #8.5 grams tamsulosin 0.4 mg capsule 0.4 mg PO DAILY #90 caps 06/28/22 dicyclomine 20 mg tablet 20 mg PO BID #7 tabs 09/27/22 levothyroxine 50 mcg tablet 50 mcg PO DAILY #90 tabs 09/28/22 Lactobacillus acidophilus 100 mg 100 mg PO DAILY #90 caps 10/03/22 (1 billion cell) capsule loperamide 2 mg tablet (Imodium 2 mg PO Q6H PRN loose stool #90 10/03/22 A-D) tabs Allergies Allergy/AdvReac Type Severity Reaction Status Date / Time prochlorperazine AdvReac Severe Other (See Verified 09/03/23 09:18 Comment) erythromycin base AdvReac Intermediate Vomiting Verified 09/03/23 09:18 [Erythromycin Base] cigarette smoke Allergy Other (See Uncoded 09/03/23 09:18 Comment) General Stated Complaint: Nk/Back Pain YADY: 3 Review of Systems Narrative: Review of Systems Constitutional: negative Eyes: negative ENT: negative Cardiovascular: negative Respiratory: negative Gastrointestinal: negative : negative Musculoskeletal: Back pain Skin: negative Neurologic: negative Psych: negative Exam Narrative Exam Narrative: Physical Examination General: alert, awake, cooperative HEENT: normocephalic, atraumatic Neck: supple, trachea midline; full ROM Chest: normal to inspection Respiratory: normal respiratory effort, speaking in full sentences GI: abdomen soft, non-tender, non-distended; no palpable mass or hepatosplenomegaly Back: No midline spinal tenderness step-off crepitus or deformity Skin: no lesions, rashes or trauma appreciated Neuro: AAOx3, normal speech, moving all extremities; 5/5 strength upper and lower extremities bilaterally, slight paresthesia to right lower extremity on light touch, normal sensation left lower extremity, cranial nerves II through XII intact, ambulatory without assistance no ataxia Extremities: No signs of trauma Psych: Appropriate mood and affect Course Vital Signs Vital signs: Vital Signs Temperature 36.7 C 09/03/23 09:22 Pulse 74 09/03/23 09:22 Respiratory Rate 22 09/03/23 09:22 Blood Pressure 129/108 H 09/03/23 09:22 Pulse Oximetry 98 09/03/23 09:22 Temperature 36.7 C 09/03/23 09:22 Temperature Source Oral 09/03/23 09:22 Pulse 74 09/03/23 09:22 Respiratory Rate 22 09/03/23 09:22 Respiratory Effort Normal, Non-Labored 09/03/23 09:29 Blood Pressure 129/108 H 09/03/23 09:22 Pulse Oximetry 98 09/03/23 09:22 Oxygen Delivery Method Room Air 09/03/23 09:22 Oxygen Flow Rate 0 09/03/23 09:22 Pain Level 5 09/03/23 09:22 Medical Decision Making 53-year-old male worsening history of lumbar spinal issues in the past including osteoarthritis and bulging disks follows at pain clinic [facility], presents with lower back discomfort rating down legs right greater than left since lifting a trailer within the last couple of days, no direct trauma, no fevers, no midline spinal tenderness, does have paresthesia to right lower extremity, no bowel or bladder issues, patient neurologically intact with full strength, ambulatory without ataxia, does have slight paresthesia to light touch right lower extremity compared to left; consider acute on chronic bulging disc versus spinal stenosis versus neural foraminal stenosis, no evidence of cauda equina, low suspicion for spinal epidural abscess or spinal epidural hematoma; will trial dexamethasone Toradol cyclobenzaprine Lidoderm patch will consider adding benzodiazepine. If no improvement given patient's history consider MRI 11: 00 patient resting comfortably no acute distress. Requesting to go home. Patient follow-up primary care and pain clinic. Quality:SDOH Health Related Social Needs: No Data to Display PFSH All Active Problems (Updated 09/03/23 @ 11:01 by Armen Dykes MD) Back pain (Acute) Hypothyroidism (Chronic) Hearing loss, left (Acute) TBI (traumatic brain injury) (Acute) Pt. states he did not have a TBI, but a was concussion COVID-19 (Acute) 09/14/21 Abdominal pain (Acute) Allergies (Acute) Right-sided sensorineural hearing loss (Acute) Low back pain (Acute) Urolithiasis (Chronic) Pelvic pain in male (Acute) LLQ abdominal pain (Acute) History of narcotic addiction (Acute) does not want narcotics offered to him at any time IBS (irritable bowel syndrome) (Chronic) Peripheral polyneuropathy (Acute) Depression (Chronic 09/03/17) Diverticulosis of colon without diverticulitis (Chronic) per colonoscopy 09/14/09-Dr. Mcdermott Medical History Fracture of lumbar spine Gastroesophageal reflux disease (06/29/13) Hypothyroidism Migraines PTSD (post-traumatic stress disorder) (09/03/17) Renal calculi Surgical History History of right knee surgery History of shoulder surgery Family History Mother No problems noted. Father Diabetes Melanoma Heart disease Hyperlipidemia Sister Multiple sclerosis Substance abuse Brother Asthma Alcohol abuse Substance abuse Maternal Grandfather , 70 Alcohol abuse Cancer Paternal Grandfather , in his 50s Tuberculosis Maternal Grandmother , 72 Alcohol abuse Asthma Cancer Paternal Grandmother Cancer Son Asthma Daughter Depression Anxiety Social History Smoking/Tobacco Use Status: Never Tobacco: How many years used: 10 Second Hand Exposure: Yes Smoking risk assessment performed?: Yes Alcohol Intake: former Drug use: Current Sobriety Substance use type: former substance user Details: 26 years clean per pt Caregiver/Support person: No Household members: spouse and children Housing: house Communication Needs: None Do you need help understanding health information?: Never Pets and animals: Yes Pets and animals: dog(s) Sexually active: Yes Do you think of yourself as: straight/heterosexual Current gender identity: male What is your relationship status?: How often do you talk on the phone with friends or family?: once per week How often do you get together with friends or relatives?: once per week How often do you attend orthodox or yazidi services?: decline to answer Do you belong to any clubs or organized social groups?: no Panel score (0-1 are the most socially isolated patients): 1 What type of physical activity do you participate in: walking and other Details: PiYo Duration: < 15 minutes/day Frequency: 1-2 times per week Ilda/Amish: None Special ilda needs: No Seatbelt use: always Helmet use: Yes Helmet use: sometimes Drive intox or ride w/intox driver salesman: No Do you feel safe at home: Yes Do you feel safe in your relationship?: Yes
[2023-09-03] MEDS: Ketorolac 15 MG/ML VIAL IM (09:57)
[2023-09-03] MEDS: Cyclobenzaprine 10 MG TAB PO (09:57)
[2023-09-03] MEDS: Dexamethasone 10 MG/ML VIAL PO (09:57)
[2023-09-03] MEDS: Lidocaine 5% Patch 1 PATCH TP (09:57)
== END 2023-09-03 11:16 | disposition home or self-care (01) ==
PROVIDERS: Emergency Provider Emergency Medicine; PCP Physician Assistant
DX: M54.50 Low back pain, unspecified (principal)
CPT/HCPCS: 96372; 99283; J1100; J1885

== ENCOUNTER 2023-11-19 12:15 | Outpatient (REF) | payer BC, SELFPAY ==
[2023-11-19 16:25] LABS: Anion Gap 10.2 mmol/L (3-11); BUN 18 mg/dL (7-18); CO2 26.8 mmol/L (21.0-32.0); Calcium 9.1 mg/dL (8.5-10.1); Calculated LDL 124 mg/dL (<100); Chloride 105 mmol/L (98-107); Cholesterol 240 mg/dL (<200); Estimated GFR 90.56 (mL/min/1.73m2); Glucose 101 mg/dL (74-106); HDL Cholesterol 42 mg/dL (40-60); Potassium 4.3 mmol/L (3.5-5.1); Sodium 142 mmol/L (136-145); TSH 6.36 uIU/Ml (0.36-3.74); Triglyceride 374 mg/dL (<150)
== END 2023-11-19 12:16 | disposition home or self-care (01) ==
LOC: NCHCN 12:15
PROVIDERS: PCP Physician Assistant; Visit Provider Physician Assistant
DX: E03.9 Hypothyroidism, unspecified (principal); Z13.220 Encounter for screening for lipoid disorders
CPT/HCPCS: 80048; 80061; 84443

== ENCOUNTER 2024-03-25 09:10 | Observation (INO) | payer BC, SELFPAY ==
[2024-03-25] VITALS (8 sets, daily range): BP systolic 130–158; BP diastolic 90–108; PULSE 55–65; RESP 14–20; TEMP 35.8–36.6; O2SAT 96–97
--- NOTE | 2024-03-25 09:27 | ED.GENADUL_ITS ---
Discharge Plan Disposition Patient Disposition: Admit to [facility] Condition: Stable Discharge Details Clinical Impression: Acute diverticulitis Primary Care Provider: Sb Jones ED Provider: Mohit Donohue Home Meds and New Rx's Prescriptions: No Action vitamin B complex [B Complex 1] Tablet 1 tab PO DAILY magnesium 250 mg tablet 1,000 mg PO DAILY albuterol sulfate [Ventolin HFA] 90 mcg/actuation HFA aerosol inhaler 2 puff IH Q6H PRN (Reason: shortness of breath or wheezing) Qty: 8.5 0RF tamsulosin 0.4 mg capsule 0.4 mg PO DAILY Qty: 90 3RF desvenlafaxine 100 mg tablet extended release 24 hr 150 mg PO DAILY Lactobacillus acidophilus 100 mg (1 billion cell) capsule 100 mg PO DAILY Qty: 90 3RF cholecalciferol (vitamin D3) [Vitamin D3] 1,000 UNIT capsule 2 cap PO DAILY acetaminophen [Tylenol] 325 mg Tablet 650 mg PO ONCE PRN ibuprofen 200 mg Tablet 200 mg PO Q6H PRN levothyroxine 50 mcg tablet 75 mcg PO DAILY THC 5 mg HS HPI General Date/Time Provider Initiated Documentation: 03/25/24 09:27 . HPI Narrative: 54 year-old male presents to ED today by POV/ambulating with his daughter with a chief complaint of bout of bloody diarrhea x5 yesterday until 1800, and having severe exquisite LLQ tenderness. Quality described as severely tendern in LLQ abdomen, no radiation to fever, chest pain, shortness of breath, nausea/vomiting, R sided abdominal pain. Severity is described as severe. Palliating factors include nothing specific attempted. Provoking factors include nothing specific. Events leading up to the incident/Associated Symptoms: Patient had a colonoscopy with normal results about a year ago. Patient not anticoagulated. Related Data Home Medications ?Medication ?Instructions ?Recorded ?Confirmed cholecalciferol (vitamin D3) 25 2 cap PO DAILY 09/09/15 03/25/24 mcg (1,000 unit) capsule (Vitamin D3) magnesium 250 mg tablet 1,000 mg PO DAILY 02/23/19 03/25/24 vitamin B complex (B Complex 1 1 tab PO DAILY 02/23/19 03/25/24 tablet) albuterol sulfate 90 mcg/actuation 2 puff inhalation Q6H PRN 04/27/19 03/25/24 aerosol inhaler (Ventolin HFA) shortness of breath or wheezing #8.5 grams acetaminophen 325 mg tablet 650 mg PO ONCE PRN 01/08/20 03/25/24 (Tylenol) ibuprofen 200 mg tablet 200 mg PO Q6H PRN 08/17/21 03/25/24 tamsulosin 0.4 mg capsule 0.4 mg PO DAILY #90 caps 06/28/22 03/25/24 Lactobacillus acidophilus 100 mg 100 mg PO DAILY #90 caps 10/03/22 03/25/24 (1 billion cell) capsule desvenlafaxine 100 mg 150 mg PO DAILY 03/06/23 03/25/24 tablet,extended release 24 hr THC 5 mg HS 03/25/24 levothyroxine 50 mcg tablet 75 mcg PO DAILY 03/25/24 03/25/24 Previous Rx's ?Medication ?Instructions ?Recorded albuterol sulfate 90 mcg/actuation 2 puff inhalation Q6H PRN 04/27/19 aerosol inhaler (Ventolin HFA) shortness of breath or wheezing #8.5 grams tamsulosin 0.4 mg capsule 0.4 mg PO DAILY #90 caps 06/28/22 Lactobacillus acidophilus 100 mg 100 mg PO DAILY #90 caps 10/03/22 (1 billion cell) capsule Allergies Allergy/AdvReac Type Severity Reaction Status Date / Time prochlorperazine AdvReac Severe Other (See Verified 03/25/24 09:27 Comment) erythromycin base AdvReac Intermediate Vomiting Verified 03/25/24 09:27 (Erythromycin Base) cigarette smoke Allergy Other (See Uncoded 03/25/24 09:27 Comment) General Stated Complaint: Abd Prob YADY: 3 Review of Systems All systems reviewed & are unremarkable except as noted in HPI and below Exam Narrative Exam Narrative: GENERAL APPEARANCE: Well-nourished, non-toxic, awake and alert, atraumatic, no acute distress. SKIN: Warm, pink, dry, intact, without rashes/lesions/ulcerations. HEAD: Normocephalic, atraumatic, normal hair distribution for gender/age. EYES: Normal conjunctiva, no exudates on lids/lashes. ENT: Nares patent, no circumoral cyanosis, no facial swelling NECK: Supple, trachea midline, painless cervical ROM. LUNGS/CHEST: Lungs CTA bilaterally- no rhonchi/rales/wheezes diffusely, non- labored respirations, normal A/P diameter, symmetrical expansion, no chest wall deformity HEART (CV/PV): Regular rate and rhythm without murmur, no peripheral edema, no JVD. ABDOMEN: Hypoactive bowel sounds, soft, non-distended, no guarding, LLQ exquisite tenderness + rebound tenderness, no Rovsing's, negative Guardado's sign. MSK: Normal ROM, no swelling/deformity to bilateral UEs or LEs, moving all extremities without weakness, no cyanosis, spine midline without tenderness, normal curvature. NEURO: Mental Status AAOx4 - alert to person, place, time, events No facial droop, no forehead involvement. Motor: No focal weakness - strength 5/5 in bilateral UEs and LEs, proximal and distal, symmetric. Sensory: sensation intact to light touch globally. Gait normal: patient ambulated without ataxia into ED room. PSYCH: euthymic, cooperative, pleasant, appropriate speech Course Vital Signs Vital signs: Vital Signs Temperature 36.6 C 03/25/24 09:12 Pulse 65 03/25/24 09:12 Respiratory Rate 16 03/25/24 09:12 Blood Pressure 158/106 H 03/25/24 09:12 Pulse Oximetry 96 03/25/24 09:12 Temperature 36.6 C 03/25/24 09:12 Temperature Source Oral 03/25/24 09:12 Pulse 65 03/25/24 09:12 Respiratory Rate 16 03/25/24 09:12 Respiratory Effort Normal 03/25/24 09:26 Blood Pressure 158/106 H 03/25/24 09:12 Pulse Oximetry 96 03/25/24 09:12 Oxygen Delivery Method Room Air 03/25/24 09:12 Oxygen Flow Rate 0 03/25/24 09:12 Pain Level 4 03/25/24 09:12 Comment pain increases with gastro workup at [facility] [place] 1 year ago - dx with diverticulosis 03/25/24 09:12 Medical Decision Making This dictation utilizes [id number] dictation software and may contain unedited grammatical errors. 54 year-old male presents to ED today by POV/ambulating with his daughter with a chief complaint of bout of bloody diarrhea x5 yesterday until 1800, and having severe exquisite LLQ tenderness. Quality described as severely tendern in LLQ abdomen, no radiation to fever, chest pain, shortness of breath, nausea/vomiting, R sided abdominal pain. Severity is described as severe. Palliating factors include nothing specific attempted. Provoking factors include nothing specific. Events leading up to the incident/Associated Symptoms: Patient had a colonoscopy with normal results about a year ago. Patients' medical history: GERD, urolithiasis, lumbar back issues, history of narcotic abuse- does not want narcotics here in [facility]. Family and social history: noncontributory. Pertinent exam findings / vital signs include LLQ tenderness with rebound tenderness, no Rovsing's, vitals stable, benign cardiopulmonary exam, neuro intact. Differential / pathologies of concern include diverticulitis, malignancy, infectious diarrhea, bleeding internal hemorrhoid. Diagnostic studies of: -CBC, BMP, liver panel, type and screen, PT/INR, CRP/ESR, lactate, lipase, urinalysis, CT ABD/pelvis w/ contrast. -CBC shows no leukocytosis, no anemia -BMP benign -Lactate neg -Lipase WNL -CRP mild elev, ESR WNL -UA benign -Stool Occult Blood neg -CT ABD/Pelvis shows acute divertic with likely microperf and adjacent fluid without current abscess Interventions of: -4.5gm Pip-Tazo q8hr, 1g IV APAP, 1L IVF NS. -Consult General Surgery Dr. Ren for admission 1145, accepted. ED Course/Assessment/Plan: Patient has acute bloody diarrhea yesterday 4-5x, now having worsening exquisite LLQ tenderness suspicious for diverticulitis. CT confirms diverticulitis with adjacent fluid, high-risk for developing abscess- plan to admit for IV antibiotics and trending studies. Dr. Ren accepted for admission at 1200. No complications in ED. Findings not consistent with diverticular abscess, sepsis, GI hemorrhage. Disposition of Acute Diverticulitis. Patient verbalized understanding of the plan and return to ED criteria and engaged in shared decision making. Medical Records Medical records reviewed: Yes I reviewed the patient's medical records. Imaging Data Radiologic Study: Attestation: I personally reviewed and interpreted this imaging study as follows: Imaging: CT Scan Radiologist's impression: EXAM: CT ABDOMEN PELVIS CTA CLINICAL HISTORY: GI Bleeding, LLQ tenderness. TECHNIQUE: Imaging Protocol: Axial computed tomography images with coronal and sagittal reformatted images were created and reviewed CONTRAST MATERIAL: Intravenous: Omnipaque 350 Contrast volume:100 ml Oral: None COMPARISON: CT CT ABDOMEN PELVIS WO/W from 09/09/[address] ABDOMEN PELVIS W from 08/17/2021 FINDINGS: ABDOMEN: There is no evidence of abdominal aortic aneurysm nor dissection.There is no aneurysmal dilatation of the common iliac arteries.The celiac and superior mesenteric arteries are patent.No evidence of significant plaque at their origins. No evidence of intraluminal thrombus within the superior mesenteric artery. The inferior mesenteric artery is patent. There are no large meandering collateral vessels in the mesentery and there are no ischemic appearing bowel loops. There is no significant narrowing in the bilateral renal arteries. There is no ascites. LIVER: There are no focal hepatic lesions nor dilatation of intrahepatic ducts. GALLBLADDER/BILIARY: There are multiple gas containing calculi in the gallbladder lumen, not previously evident on CT scan of 08/17/2021. There is no gallbladder wall edema nor pericholecystic fluid to suggest acute cholecystitis. The CBD is not dilated. There is no dilatation of intrahepatic ducts. PANCREAS: No evidence of pancreatic mass nor dilatation of the pancreatic duct. SPLEEN: Spleen is not enlarged. There are no intrasplenic lesions. Splenic and portal veins are patent. ADRENALS: There are no significant adrenal masses. KIDNEYS: There is a cyst in the lateral aspect of the left kidney which measures 1.5 by 1.0 cm, unchanged. Does not require further imaging workup. No solid renal masses. No calculi. No hydronephrosis. No hydroureter.. ABDOMINAL AORTA: The abdominal aorta is not enlarged. LYMPH NODES: There is no retroperitoneal nor para-aortic adenopathy. No obvious mesenteric masses. ABDOMINAL WALL: There is anterior abdominal wall fat only containing umbilical hernia. No bowel obstruction. GI: There is no evidence of bowel obstruction, free air, nor abscess.Appendix appears unremarkable. There diverticuli in the sigmoid. Are at the junction of the descending colon and sigmoid there is the diverticulum with surrounding inflammatory change consistent with acute diverticulitis. There is no formed abscess at this time. PELVIS: LYMPH NODES: There is no intrapelvic nor inguinal adenopathy. GI: No evidence of appendicitis.Sigmoid diverticulitis as described above. URINARY BLADDER: Mild uniform thickening of the urinary bladder but probably related to under distension. REPRODUCTIVE: Prostate size normal. Seminal vesicles unremarkable. OSSEOUS: No fractures. There is a solitary peripherally sclerotic non expansile small bone lesion left iliac bone of the pelvis measuring 9 x 7 mm, unchanged from CT scan of August 2021 and therefore most probably benign. It is also unchanged from CT scan of August 2020. IMPRESSION: 1. No evidence of acute intraluminal extravasation of injected IV contrast to suggest localization of suspected GI bleed. 2. There is acute diverticulitis at the junction of the descending colon and sigmoid at approximately the iliac crest level. Some mild surrounding fluid but no formed abscess at this time. 3. Multiple gallstones are noted in the gallbladder lumen. No CT evidence of acute cholecystitis nor dilatation of the biliary tree 4. Other findings as above Lab Data Lab results reviewed: Yes I reviewed the patient's lab results. Lab results narrative: Stool Occult Blood neg Labs: 03/25/24 10:41 Stool Stool Occult Blood (NIMO) - Final Laboratory Tests Range/Units 03/25/24 03/25/24 03/25/24 09:45 10:00 10:41 WBC (4.4-10.8) 10^3/uL 7.61 RBC (4.36-5.78) 10^6/uL 5.40 Hgb (13.5-17.5) g/dL 16.1 Hct (40.0-50.0) % 48.4 MCV (80-95) fL 90 MCH (27.0-33.0) pg 29.8 MCHC (32.0-36.0) % 33.3 RDW (11.8-14.1) % 12.0 Plt Count (130-400) 10^3/uL 242 MPV (8.0-11.0) fL 9.2 Immature Gran % % 0.3 Neutrophils % % 53.1 Lymphocytes % % 34.8 Monocytes % % 10.6 Eosinophils % % 0.7 Basophils % % 0.5 Nucleated RBC % (0.0-0.3) % 0.0 Absolute Neutrophils (1.2-6.7) 10^3/uL 4.04 Absolute Lymphocytes (1.2-3.4) 10^3/uL 2.65 Absolute Monocytes (0.1-0.8) 10^3/uL 0.81 H Absolute Eosinophils (0.0-0.7) 10^3/uL 0.05 Absolute Basophils (0.0-0.2) 10^3/uL 0.04 ESR (0-20) mm/hr 15 PT (9.1-11.1) sec 9.7 INR (0.9-1.1) 1.0 VBG Lactate (0.6-1.4) mmol/L 0.6 Sodium (136-145) mmol/L 143 Potassium (3.5-5.1) mmol/L 4.3 Chloride (98-107) mmol/L 107 Carbon Dioxide (21.0-32.0) mmol/L 28.6 Anion Gap (3-11) mmol/L 7.4 BUN (7-18) mg/dL 21 H Creatinine (0.70-1.30) mg/dL 1.0 Est GFR (CKD-EPI 2020) (mL/min/1.73m2) 90.00 Glucose (74-106) mg/dL 100 Calcium (8.5-10.1) mg/dL 9.2 Magnesium (1.8-2.4) mg/dL 2.1 Total Bilirubin (0.2-1.0) mg/dL 0.46 Conjugated Bilirubin (0.0-0.2) mg/dL 0.1 AST (15-37) U/L 26 ALT (16-63) U/L 70 H Alkaline Phosphatase (46-116) U/L 112 C-Reactive Protein (<or=0.5) mg/dL 1.93 H Total Protein (6.4-8.2) g/dL 8.5 H Albumin (3.4-5.0) g/dL 3.8 Lipase (16-77) U/L 28 Urine Color (Yellow) Yellow Urine Clarity (Clear) Clear Urine pH (5-8) 5.5 Ur Specific [place] (1.005-1.025) 1.025 Urine Protein (Neg-Trace) mg/dL Negative Urine Ketones (Negative) mg/dL Negative Urine Blood (Negative) Trace-intact H Urine Nitrite (Negative) Negative Urine Bilirubin (Negative) Negative Urine Urobilinogen (Up to 0.2) mg/dL 0.2 Ur Leukocyte Esterase (Negative) Negative Urine RBC (0-2) HPF 5-10 H Urine WBC (0-5) HPF 0-2 Ur Epithelial Cells (Negative) HPF Rare Urine Crystals (Negative) HPF Negative Urine Bacteria (Negative) HPF Few Urine Casts (Negative) LPF Negative Urine Mucus (Negative) Moderate Ur Culture Indicated? No Urine Glucose (Negative) mg/dL Negative ABO/Rh O Negative Antibody Screen NEGATIVE Quality:SDOH Health Related Social Needs: No Data to Display PFSH All Active Problems (Updated 03/25/24 @ 11:58 by KAVITHA Baldwin) Acute diverticulitis (Acute) Hypothyroidism (Chronic) Hearing loss, left (Acute) TBI (traumatic brain injury) (Acute) Pt. states he did not have a TBI, but a was concussion COVID-19 (Acute) 09/14/21 Abdominal pain (Acute) Allergies (Acute) Right-sided sensorineural hearing loss (Acute) Low back pain (Acute) Urolithiasis (Chronic) Pelvic pain in male (Acute) LLQ abdominal pain (Acute) History of narcotic addiction (Acute) does not want narcotics offered to him at any time IBS (irritable bowel syndrome) (Chronic) Peripheral polyneuropathy (Acute) Depression (Chronic 09/03/17) Diverticulosis of colon without diverticulitis (Chronic) per colonoscopy 09/14/09-Dr. Mcdermott Medical History Fracture of lumbar spine Gastroesophageal reflux disease (06/29/13) Hypothyroidism Migraines PTSD (post-traumatic stress disorder) (09/03/17) Renal calculi Surgical History History of right knee surgery History of shoulder surgery Family History Mother No problems noted. Father Diabetes Melanoma Heart disease Hyperlipidemia Sister Multiple sclerosis Substance abuse Brother Asthma Alcohol abuse Substance abuse Maternal Grandfather , 70 Alcohol abuse Cancer Paternal Grandfather , in his 50s Tuberculosis Maternal Grandmother , 72 Alcohol abuse Asthma Cancer Paternal Grandmother Cancer Son Asthma Daughter Depression Anxiety Social History Smoking/Tobacco Use Status: Never Tobacco: How many years used: 10 Second Hand Exposure: Yes Smoking risk assessment performed?: Yes Alcohol Intake: former Drug use: Current Sobriety Substance use type: former substance user Details: 26 years clean per pt Caregiver/Support person: No Household members: spouse and children Housing: house Communication Needs: None Do you need help understanding health information?: Never Pets and animals: Yes Pets and animals: dog(s) Sexually active: Yes Do you think of yourself as: straight/heterosexual Current gender identity: male What is your relationship status?: How often do you talk on the phone with friends or family?: once per week How often do you get together with friends or relatives?: once per week How often do you attend adventism or orthodox services?: decline to answer Do you belong to any clubs or organized social groups?: no Panel score (0-1 are the most socially isolated patients): 1 What type of physical activity do you participate in: walking and other Details: PiYo Duration: < 15 minutes/day Frequency: 1-2 times per week Ilda/Orthodoxy: None Special ilda needs: No Seatbelt use: always Helmet use: Yes Helmet use: sometimes Drive intox or ride w/intox armored truck 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
--- NOTE | 2024-03-25 09:30 | DI.CT_ITS ---
Exam(s) CT ABDOMEN PELVIS CTA EXAM: CT ABDOMEN PELVIS CTA CLINICAL HISTORY: GI Bleeding, LLQ tenderness. TECHNIQUE: Imaging Protocol: Axial computed tomography images with coronal and sagittal reformatted images were created and reviewed CONTRAST MATERIAL: Intravenous: Omnipaque 350 Contrast volume:100 ml Oral: None COMPARISON: CT CT ABDOMEN PELVIS WO/W from 09/09/[address] ABDOMEN PELVIS W from 08/17/2021 FINDINGS: ABDOMEN: There is no evidence of abdominal aortic aneurysm nor dissection.There is no aneurysmal dilatation of the common iliac arteries.The celiac and superior mesenteric arteries are patent.No evidence of sign ificant plaque at their origins. No evidence of intraluminal thrombus within the superior mesenteric artery. The inferior mesenteric artery is patent. There are no large meandering collateral vessels in the mesentery and there are no ischemic appearing bowel loops. There is no significant narrowing in the bilateral renal arteries. There is no ascites. LIVER: There are no focal hepatic lesions nor dilatation of intrahepatic ducts. GALLBLADDER/BILIARY: There are multiple gas containing calculi in the gallbladder lumen, not previous ly evident on CT scan of 08/17/2021. There is no gallbladder wall edema nor pericholecystic fluid to suggest acute cholecystitis. The CBD is not dilated. There is no dilatation of intrahepatic ducts. PANCREAS: No evidence of pancreatic mass nor dilatation of the pancreatic duct. SPLEEN: Spleen is not enlarged. There are no intrasplenic lesions. Splenic and portal veins are raymond nt. ADRENALS: There are no significant adrenal masses. KIDNEYS: There is a cyst in the lateral aspect of the left kidney which measures 1.5 by 1.0 cm, uncha nged. Does not require further imaging workup. No solid renal masses. No calculi. No hydronephros is. No hydroureter.. ABDOMINAL AORTA: The abdominal aorta is not enlarged. LYMPH NODES: There is no retroperitoneal nor para-aortic adenopathy. No obvious mesenteric masses. ABDOMINAL WALL: There is anterior abdominal wall fat only containing umbilical hernia. No bowel obst ruction. GI: There is no evidence of bowel obstruction, free air, nor abscess.Appendix appears unremarkable. There diverticuli in the sigmoid. Are at the junction of the descending colon and sigmoid there is t he diverticulum with surrounding inflammatory change consistent with acute diverticulitis. There is no formed abscess at this time. PELVIS: LYMPH NODES: There is no intrapelvic nor inguinal adenopathy. GI: No evidence of appendicitis.Sigmoid diverticulitis as described above. URINARY BLADDER: Mild uniform thickening of the urinary bladder but probably related to under distens ion. REPRODUCTIVE: Prostate size normal. Seminal vesicles unremarkable. OSSEOUS: No fractures. There is a solitary peripherally sclerotic non expansile small bone lesion le ft iliac bone of the pelvis measuring 9 x 7 mm, unchanged from CT scan of August [address] probably benign. It is also unchanged from CT scan of August 2020. IMPRESSION: 1. No evidence of acute intraluminal extravasation of injected IV contrast to suggest localization of suspected GI bleed. 2. There is acute diverticulitis at the junction of the descending colon and sigmoid at approximately the iliac crest level. Some mild surrounding fluid but no formed abscess at this time. 3. Multiple gallstones are noted in the gallbladder lumen. No CT evidence of acute cholecystitis nor dilatation of the biliary tree 4. Other findings as above Report called by myself to ER provider 01/24/2024 at 11:32 a.m.. RADIATION DOSE DELIVERED: 1,350.36mGy.cm Total DLP DATA REPOSITORY: All CT scans at this facility are submitted to the National Radiology Data Registry (NRDR) Dose Index Registry (DIR) with the [employer] (ACR). RADIATION OPTIMIZATION: All CT scans at this facility use at least one of these dose optimization te chniques: automated exposure control; mA and/or kV adjustment per patient size (includes targeted exa ms where dose is matched to clinical indication); or iterative reconstruction.
[2024-03-25 09:51] LABS: Lactate 0.6 mmol/L (0.6-1.4)
[2024-03-25 09:52] LABS: Abs Immature Grans 0.02 10^3/uL (0.0-0.06); Absolute Basophil Count 0.04 10^3/uL (0.0-0.2); Absolute Eosinophil Count 0.05 10^3/uL (0.0-0.7); Absolute Lymphocyte Count 2.65 10^3/uL (1.2-3.4); Absolute Monocyte Count 0.81 10^3/uL (0.1-0.8); Absolute Neutrophil Count 4.04 10^3/uL (1.2-6.7); Basophils % 0.5 %; Eosinophils % 0.7 %; HCT 48.4 % (40.0-50.0); HGB 16.1 g/dL (13.5-17.5); Immature Grans % 0.3 %; Lymphocytes % 34.8 %; MCH 29.8 pg (27.0-33.0); MCHC 33.3 % (32.0-36.0); MCV 90 fL (80-95); MPV 9.2 fL (8.0-11.0); Monocytes % 10.6 %; Neutrophils % 53.1 %; Platelet Count 242 10^3/uL (130-400); RDW-SD 39.5 fL; WBC 7.61 10^3/uL (4.4-10.8)
[2024-03-25] MEDS: Normal Saline 1,000 ML 1000 ML IV (10:00)
[2024-03-25 10:03] LABS: Prothrombin Time 9.7 sec (9.1-11.1)
[2024-03-25 10:04] LABS: ESR 15 mm/hr (0-20)
[2024-03-25] MEDS: ACETAMINOPHEN 1,000 MG/100 ML BTL 400 MG IVPB (10:06)
[2024-03-25 10:12] LABS: ALT 70 U/L (16-63); AST 26 U/L (15-37); Albumin 3.8 g/dL (3.4-5.0); Alkaline Phosphatase 112 U/L (46-116); Anion Gap 7.4 mmol/L (3-11); BUN 21 mg/dL (7-18); Bilirubin, Direct 0.1 mg/dL (0.0-0.2); Bilirubin, Total 0.46 mg/dL (0.2-1.0); C-Reactive Protein 1.93 mg/dL (<or=0.5); CO2 28.6 mmol/L (21.0-32.0); Calcium 9.2 mg/dL (8.5-10.1); Chloride 107 mmol/L (98-107); Glucose 100 mg/dL (74-106); Lipase 28 U/L (16-77); Magnesium 2.1 mg/dL (1.8-2.4); Potassium 4.3 mmol/L (3.5-5.1); Sodium 143 mmol/L (136-145); Total Protein 8.5 g/dL (6.4-8.2)
[2024-03-25] MEDS: Omnipaque 350 MG/ML 100 ML BTL IJ (10:57)
[2024-03-25] MEDS: Normal Saline - Diluent 50 ML VIAL IV (10:58)
[2024-03-25 11:01] LABS: Bilirubin Negative (Negative); Blood Trace-intact (Negative); Clarity Clear (Clear); Glucose Negative (Negative); Ketones Negative (Negative); Leukocyte Esterase Negative (Negative); Nitrite Negative (Negative); Specific Gravity 1.025 (1.005-1.025); Urobilinogen 0.2 mg/dL (Up to 0.2); pH 5.5 (5-8)
[2024-03-25 11:11] LABS: Bacteria Few HPF (Negative); C & S Indicated? No; Casts Negative LPF (Negative); Crystals Negative HPF (Negative); Epithelial Cells Rare HPF (Negative); Mucus Moderate (Negative); WBC 0-2 HPF (0-5)
[2024-03-25] MEDS: PIPERACILLIN/TAZO 4.5 GM in Normal Saline 100 ML IVPB ×2 (11:54→20:35)
--- NOTE | 2024-03-25 12:04 | HPE_ITS ---
Date of service: 03/25/24 Time of Service: 12:04 Assessment and Plan Assessment and plan (1) Acute diverticulitis: Status: Acute Assessment and plan: Certainly, the history exam, and imaging are most consistent with acute perforated diverticulitis that seems confined to the descending mesocolon. It appears to be Hinchey grade 1. There are no signs of sepsis at this point, and since he already received a dose of Zosyn in the emergency department, my preference would be to forego antibiotics at this time, and see how his exam evolves over the next 24 hours. Will keep him on clear liquids for now and repeat the white count and CRP tomorrow. Assuming the CRP is improving are normal, and the white cell count remained stable, then we could slowly advance his diet. We did talk about the natural history of diverticulitis, and that some patients in his scenario may go on to develop an abscess. Certainly if that is the case, percutaneous drainage would probably be the treatment of choice. But in light of his exam today, I am optimistic that this will resolve without any dramatic interventions. History of Present Illness History of Present Illness Chief Complaint: Abdominal pain Narrative: Som is 54 years old. He comes to the emergency department after the acute onset of abdominal pain that started yesterday. He said it came on just around noon. It was sharp and stabbing, and in the left mid abdomen, just around the level of the umbilicus. At first he thought it was a kidney stone. The pain tends to wax and wane throughout the course of the day, and there were several episodes of some bloody bowel movements that follow that. He came to the emergency department because of increasing pain. Vital signs in the emergency department were normal, and the only had a mild elevation in his CRP. He had no leukocytosis. He underwent a CT scan of the abdomen and pelvis that demonstrated acute diverticulitis of the descending colon. His past medical history is most significant for chronic nonspecific abdominal pain. He had an extensive workup at [facility] with chronically altered bowel movements consistent with IBS-D. He does not have any significant abdominal surgical history Review of Systems Constitutional Constitutional: Denies fever(s), Denies poor appetite and Denies weight loss Eyes Eyes: Reports system reviewed and no additional complaints, except as documented ENT Ears, Nose, Mouth, and Throat: Reports system reviewed and no additional complaints, except as documented Cardiovascular Cardiovascular: Reports system reviewed and no additional complaints, except as documented Respiratory Respiratory: Denies chest congestion and Denies cough Gastrointestinal Gastrointestinal: Reports abdominal pain, Reports bloating, Reports hematochezia and Reports dyspepsia Genitourinary Genitourinary: Reports system reviewed and no additional complaints, except as documented Musculoskeletal Musculoskeletal: Denies abnormal gait and Reports back pain Neurologic Neurologic: Denies abnormal gait Psychiatric Psychiatric: Reports system reviewed and no additional complaints, except as documented Endocrine Endocrine: Denies flushing and Denies heat intolerance Hematologic/Lymphatic Hematologic/Lymphatic: Denies as per HPI and Denies easy bleeding PFSH All Active Problems Acute diverticulitis (Acute) Hypothyroidism (Chronic) Hearing loss, left (Acute) TBI (traumatic brain injury) (Acute) Pt. states he did not have a TBI, but a was concussion COVID-19 (Acute) 09/14/21 Abdominal pain (Acute) Allergies (Acute) Right-sided sensorineural hearing loss (Acute) Low back pain (Acute) Urolithiasis (Chronic) Pelvic pain in male (Acute) LLQ abdominal pain (Acute) History of narcotic addiction (Acute) does not want narcotics offered to him at any time IBS (irritable bowel syndrome) (Chronic) Peripheral polyneuropathy (Acute) Depression (Chronic 09/03/17) Diverticulosis of colon without diverticulitis (Chronic) per colonoscopy 09/14/09-Dr. Mcdermott Medical History Renal calculi Fracture of lumbar spine Gastroesophageal reflux disease (06/29/13) Migraines PTSD (post-traumatic stress disorder) (09/03/17) Surgical History History of shoulder surgery History of right knee surgery Family History Mother No problems noted. Father Diabetes Melanoma Heart disease Hyperlipidemia Sister Multiple sclerosis Substance abuse Brother Asthma Alcohol abuse Substance abuse Maternal Grandfather , 70 Alcohol abuse Cancer Paternal Grandfather , in his 50s Tuberculosis Maternal Grandmother , 72 Alcohol abuse Asthma Cancer Paternal Grandmother Cancer Son Asthma Daughter Depression Anxiety Social History Smoking/Tobacco Use Status: Never Tobacco: How many years used: 10 Second Hand Exposure: Yes Smoking risk assessment performed?: Yes Alcohol Intake: former Drug use: Current Sobriety Substance use type: former substance user Details: 26 years clean per pt Caregiver/Support person: No Household members: spouse and children Housing: house Communication Needs: None Do you need help understanding health information?: Never Pets and animals: Yes Pets and animals: dog(s) Sexually active: Yes Do you think of yourself as: straight/heterosexual Current gender identity: male What is your relationship status?: How often do you talk on the phone with friends or family?: once per week How often do you get together with friends or relatives?: once per week How often do you attend congregation or shinto services?: decline to answer Do you belong to any clubs or organized social groups?: no Panel score (0-1 are the most socially isolated patients): 1 What type of physical activity do you participate in: walking and other Details: PiYo Duration: < 15 minutes/day Frequency: 1-2 times per week Ilda/Scientology: None Special ilda needs: No Seatbelt use: always Helmet use: Yes Helmet use: sometimes Drive intox or ride w/intox hack 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 Meds Allergies and Home Medications Allergies Allergy/AdvReac Type Severity Reaction Status Date / Time prochlorperazine AdvReac Severe Other (See Verified 03/25/24 09:27 Comment) erythromycin base AdvReac Intermediate Vomiting Verified 03/25/24 09:27 (Erythromycin Base) cigarette smoke Allergy Other (See Uncoded 03/25/24 09:27 Comment) Home Medications ?Medication ?Instructions ?Recorded ?Confirmed ?Type cholecalciferol (vitamin D3) 25 2 cap PO DAILY 09/09/15 03/25/24 History mcg (1,000 unit) capsule (Vitamin D3) magnesium 250 mg tablet 1,000 mg PO DAILY 02/23/19 03/25/24 History vitamin B complex (B Complex 1 1 tab PO DAILY 02/23/19 03/25/24 History tablet) albuterol sulfate 90 mcg/actuation 2 puff inhalation Q6H PRN 04/27/19 03/25/24 Rx aerosol inhaler (Ventolin HFA) shortness of breath or wheezing #8.5 grams acetaminophen 325 mg tablet 650 mg PO ONCE PRN 01/08/20 03/25/24 History (Tylenol) ibuprofen 200 mg tablet 200 mg PO Q6H PRN 08/17/21 03/25/24 History tamsulosin 0.4 mg capsule 0.4 mg PO DAILY #90 caps 06/28/22 03/25/24 Rx Lactobacillus acidophilus 100 mg 100 mg PO DAILY #90 caps 10/03/22 03/25/24 Rx (1 billion cell) capsule THC 5 mg HS 03/25/24 History desvenlafaxine succinate 100 mg 100 mg PO DAILY 03/25/24 03/25/24 History tablet,extended release 24 hr desvenlafaxine succinate 50 mg 50 mg PO DAILY 03/25/24 03/25/24 History tablet,extended release 24 hr levothyroxine 75 mcg tablet 75 mcg PO DAILY 03/25/24 03/25/24 History Exam Const General: cooperative, healthy appearing and comfortable Nutritional Appearance: average body habitus Orientation: alert, awake and oriented x3 HENMT Head: normal to inspection Eyes General: appearance normal, both eyes and all related structures Neck Neck: normal visual inspection, full ROM and no lymphadenopathy Resp Effort & Inspection: normal respiratory effort Auscultation: clear to auscultation bilaterally Cardio Jugular venous pressure: no JVD Rate: regular rate Rhythm: regular rhythm Heart Sounds: S1 normal and S2 normal GI Inspection: normal to inspection and non-distended Palpation: soft, no guarding, no hernias and tender (Left abdomen) Auscultation: normal bowel sounds Skin Lesions: no lesions Rashes: no rashes Psych Appearance: grossly normal Results Labs 03/25/24 09:45 03/25/24 09:45 Labs: Laboratory Results - last 24 hr 03/25/24 03/25/24 03/25/24 09:45 10:00 10:41 WBC 7.61 RBC 5.40 Hgb 16.1 Hct 48.4 MCV 90 MCH 29.8 MCHC 33.3 RDW 12.0 Plt Count 242 MPV 9.2 Immature Gran % 0.3 Neutrophils % 53.1 Lymphocytes % 34.8 Monocytes % 10.6 Eosinophils % 0.7 Basophils % 0.5 Nucleated RBC % 0.0 Absolute Neutrophils 4.04 Absolute Lymphocytes 2.65 Absolute Monocytes 0.81 H Absolute Eosinophils 0.05 Absolute Basophils 0.04 ESR 15 PT 9.7 INR 1.0 VBG Lactate 0.6 Sodium 143 Potassium 4.3 Chloride 107 Carbon Dioxide 28.6 Anion Gap 7.4 BUN 21 H Creatinine 1.0 Est GFR (CKD-EPI 2020) 90.00 Glucose 100 Calcium 9.2 Magnesium 2.1 Total Bilirubin 0.46 Conjugated Bilirubin 0.1 AST 26 ALT 70 H Alkaline Phosphatase 112 C-Reactive Protein 1.93 H Total Protein 8.5 H Albumin 3.8 Lipase 28 Urine Color Yellow Urine Clarity Clear Urine pH 5.5 Ur Specific [place] 1.025 Urine Protein Negative Urine Ketones Negative Urine Blood Trace-intact H Urine Nitrite Negative Urine Bilirubin Negative Urine Urobilinogen 0.2 Ur Leukocyte Esterase Negative Urine RBC 5-10 H Urine WBC 0-2 Ur Epithelial Cells Rare Urine Crystals Negative Urine Bacteria Few Urine Casts Negative Urine Mucus Moderate Ur Culture Indicated? No Urine Glucose Negative ABO/Rh O Negative Antibody Screen NEGATIVE Last Vital Signs Temp 97.8 F 03/25/24 09:29 Pulse 56 L 03/25/24 11:35 Resp 16 03/25/24 09:29 BP 143/97 H 03/25/24 11:35 Pulse Ox 97 03/25/24 11:35 Time Spent Time spent with Patient: 55-74 minutes Time was spent: preparing to see the patient(eg.review tests), referring, communicating with other health acute care assistant, indepentently interpreting results and counseling the patient
[2024-03-25] MEDS: Ketorolac 15 MG/ML VIAL IVP (12:44)
--- NOTE | 2024-03-25 13:27 | W.PC.ACHO ---
Registration Status: Primary Language: Preferred Language: ED Information & Data Chief Complaint Abd Prob 03/25/24 09:28 Triage Note left sided abdominal pain 03/25/24 09:12 started at noon yesterday. ~ 1pm yesterday passed large amount of bright red mucousy blood. 4-5 episodes up until 6pm. pain continues today. Medical / Surgical History (Last Reviewed 04/19/22 @ 15:26 by Willy Saunders MD) Renal calculi Fracture of lumbar spine Gastroesophageal reflux disease (06/29/13) Migraines PTSD (post-traumatic stress disorder) (09/03/17) (Last Reviewed 04/19/22 @ 15:26 by Willy Saunders MD) History of shoulder surgery History of right knee surgery Most Recent Vital Signs Temperature 36.5 C 03/25/24 13:21 Temperature Source Oral 03/25/24 12:59 Pulse 55 L 03/25/24 13:21 Respiratory Rate 14 03/25/24 13:21 Respiratory Effort Normal 03/25/24 09:26 Blood Pressure 134/95 H 03/25/24 13:21 Pulse Oximetry 97 03/25/24 13:21 Oxygen Delivery Method Room Air 03/25/24 12:59 Oxygen Flow Rate 0 03/25/24 12:59 Pain Level 4 03/25/24 13:21 Comment pain increases [place] [facility] [place] with [place]iculosis 03/25/24 09:29 Allergies prochlorperazine Adverse Reaction (Severe, Verified 03/25/24 09:27) Other (See Comment) Anxiety/akathisia erythromycin base (Erythromycin Base) Adverse Reaction (Intermediate, Verified 03/25/24 09:27) Vomiting cigarette smoke Allergy (Uncoded 03/25/24 09:27) Other (See Comment) Precautions Isolation Standard precaution 03/25/24 09:26 Active Medications Generic Name Dose Route Start Last Admin Trade Name Freq PRN Reason Stop Dose Admin Piperacillin Sod/Tazobactam 100 mls @ 200 mls/hr 03/25/24 11:45 03/25/24 12:24 Sod 4.5 gm/ Sodium Chloride IVPB Infused Q8H GARETT Infusion Iohexol 100 ml 03/25/24 11:00 03/25/24 10:57 Omnipaque 350 Mg/Ml 100 Ml Btl IJ 04/24/24 23:59 100 ml DIRECTED GARETT Administration Sodium Chloride 50 ml 03/25/24 11:00 03/25/24 10:58 Normal Saline - Diluent 50 Ml Vial IV 50 ml .FOR DI USE GARETT Administration IV IV Catheter Type [Left Saline Lock Antecubital] IV Catheter Gauge [Left 18 Antecubital] Diagnostics 03/25/24 03/25/24 03/25/24 Range/Units 10:41 10:00 09:45 WBC 7.61 (4.4-10.8) 10^3/uL RBC 5.40 (4.36-5.78) 10^6/uL Hgb 16.1 (13.5-17.5) g/dL Hct 48.4 (40.0-50.0) % MCV 90 (80-95) fL MCH 29.8 (27.0-33.0) pg MCHC 33.3 (32.0-36.0) % RDW 12.0 (11.8-14.1) % Plt Count 242 (130-400) 10^3/uL MPV 9.2 (8.0-11.0) fL Immature Gran % 0.3 % Neutrophils % 53.1 % Lymphocytes % 34.8 % Monocytes % 10.6 % Eosinophils % 0.7 % Basophils % 0.5 % Nucleated RBC % 0.0 (0.0-0.3) % Absolute Neutrophils 4.04 (1.2-6.7) 10^3/uL Absolute Lymphocytes 2.65 (1.2-3.4) 10^3/uL Absolute Monocytes 0.81 H (0.1-0.8) 10^3/uL Absolute Eosinophils 0.05 (0.0-0.7) 10^3/uL Absolute Basophils 0.04 (0.0-0.2) 10^3/uL ESR 15 (0-20) mm/hr PT 9.7 (9.1-11.1) sec INR 1.0 (0.9-1.1) VBG Lactate 0.6 (0.6-1.4) mmol/L Sodium 143 (136-145) mmol/L Potassium 4.3 (3.5-5.1) mmol/L Chloride 107 (98-107) mmol/L Carbon Dioxide 28.6 (21.0-32.0) mmol/L Anion Gap 7.4 (3-11) mmol/L BUN 21 H (7-18) mg/dL Creatinine 1.0 (0.70-1.30) mg/dL Est GFR (CKD-EPI 2020) 90.00 (mL/min/1.73m2) Glucose 100 (74-106) mg/dL Calcium 9.2 (8.5-10.1) mg/dL Magnesium 2.1 (1.8-2.4) mg/dL Total Bilirubin 0.46 (0.2-1.0) mg/dL Conjugated Bilirubin 0.1 (0.0-0.2) mg/dL AST 26 (15-37) U/L ALT 70 H (16-63) U/L Alkaline Phosphatase 112 (46-116) U/L C-Reactive Protein 1.93 H (<or=0.5) mg/dL Total Protein 8.5 H (6.4-8.2) g/dL Albumin 3.8 (3.4-5.0) g/dL Lipase 28 (16-77) U/L Urine Color Yellow (Yellow) Urine Clarity Clear (Clear) Urine pH 5.5 (5-8) Ur Specific [place] 1.025 (1.005-1.025) Urine Protein Negative (Neg-Trace) mg/dL Urine Ketones Negative (Negative) mg/dL Urine Blood Trace-intact H (Negative) Urine Nitrite Negative (Negative) Urine Bilirubin Negative (Negative) Urine Urobilinogen 0.2 (Up to 0.2) mg/dL Ur Leukocyte Esterase Negative (Negative) Urine RBC 5-10 H (0-2) HPF Urine WBC 0-2 (0-5) HPF Ur Epithelial Cells Rare (Negative) HPF Urine Crystals Negative (Negative) HPF Urine Bacteria Few (Negative) HPF Urine Casts Negative (Negative) LPF Urine Mucus Moderate (Negative) Ur Culture Indicated? No Urine Glucose Negative (Negative) mg/dL ABO/Rh O Negative Antibody Screen NEGATIVE 03/25/24 10:41 Stool Occult Blood (NIMO) - Final Stool Intake and Output - 24 Hour Total 03/25/24 09:10 thru 03/25/24 12:24 Intake Total 1210 Balance 1210 Weight 105.959 kg Intake: IV 1210 Falls Risk Assessment Contributing Factors No Factors 03/25/24 09:20 Fall Total Score 0 03/25/24 09:20 Level of Risk Standard/Low Risk 03/25/24 09:20 v v v v v v v v v Sending and/or Receiving Nurses: Please use comment section below to note any information pertinent to the patient hand-off not included above. Information / Comments: Abd pain since noon yesterday, imaging revealed diverticulitis with micro perf, obs admit for hydration and antibiotics Report received from:Ama
--- OUTSIDE RECORDS SUMMARY | 2024-03-25 13:57 | XMS_ITS | Continuity of Care Document ---
Author Organization [facility] Address [address] [place] [address] Care Team Providers Care Card Dealer Name Role Phone Robert [facility]ician En[facility] [id number] Date(s): 12/24/23 - 12/24/23 [facility] [address] [place] [address] Discharge Disposition: Home Allergies, Adverse Reactions, Alerts No Known Medication Allergies Assessment and Plan Future Appointments Medications albuterol 90 mcg/inh aerosol inhaler 2 puffs, Inhale, every 4 hr, PRN as needed for wheezing, # 8 g, 0 Refill(s) Start Date: 11/27/23 Status: Ordered desvenlafaxine (as base) 100 mg oral tablet, extended release 100 mg = 1 tab, Oral, Daily, # 30 tab, 0 Refill(s) Start Date: 12/24/23 Status: Ordered desvenlafaxine (as base) 50 mg oral tablet, extended release 1 tab, Oral, Daily, # 30 tab, 0 Refill(s) Start Date: 12/24/23 Status: Ordered gabapentin 300 mg oral capsule 300 mg = 1 cap, Oral, Daily, # 270 cap, 0 Refill(s) Start Date: 11/27/23 Status: Ordered levothyroxine 75 mcg (0.075 mg) oral capsule 75 mcg = 1 cap, Oral, Daily, # 30 cap, 0 Refill(s) Start Date: 12/24/23 Status: Ordered tamsulosin 0.4 mg oral capsule 0.4 mg = 1 cap, Oral, Daily, # 30 cap, 0 Refill(s) Start Date: 11/27/23 Status: Ordered Tylenol 325 mg oral capsule 650 mg = 2 cap, Oral, every 4 hr, PRN as needed for pain, # 20 cap, 0 Refill(s) Start Date: 11/27/23 Status: Ordered Vitamin B Complex oral capsule 1 cap, Oral, Daily, # 90 cap, 0 Refill(s) Start Date: 11/27/23 Status: Ordered zolpidem 5 mg oral tablet See Instructions, Take 1-2 PO night of leep study if needed, # 2 tab, 0 Refill(s), Pharmacy: [facility], 186, cm, 12/24/23 8:29:00 EDT, Height, 108.8, kg, 12/24/23 8:32:00 EDT, Weight Dosing Start Date: 12/24/23 Status: Ordered Problem List Condition Confirmation Course Effective Dates Status H ealth Status Informant Abdominal pain Confirmed Active Hearing loss, bilateral Confirmed Active Chronic depression Confirmed Active Chronic low back pain Confirmed Active Diverticulitis large intestine Confirmed Active Hypothyroidism Confirmed Active Kidney stone Confirmed Active Migraine Confirmed Active Pelvic and perineal pain Confirmed Active Psychoactive substance abuse Confirmed Active Restless leg syndrome Confirmed Active Urolithiasis Confirmed Active Social History Social History Type Response Tobacco Never tobacco user T obacco Use:. Sex Patient Care team information Care Team Personnel Name: Robert DSOUZA-Sb ORDONEZ Position: No Access Member Role: Primary Care Physician Address: Address: [address] [address]- Care Team Related Persons Name: WILLOW ZOILA Address: Home [address] [place], [place] [id number] Address: Mailing [address] [place], [place] [id number]
--- OUTSIDE RECORDS SUMMARY | 2024-03-25 13:57 | XMS_ITS | Continuity of Care Document ---
Author Organization [facility] Address [address] [place] [address] Encounter [facility] FIN NBR [id number] Date(s): 10/11/22 - 10/11/22 [facility] [address] [place] [address] [place] Encounter Diagnosis Encounter for other administrative examinations(Final) - Discharge Disposition: Home or Self Care Attending Physician: Ashutosh Thompson Admitting Physician: Ashutosh Thompson Allergies, Adverse Reactions, Alerts Substance Reaction Severity Status Cigarette smoke Unknown Active Assessment and Plan Future Scheduled Tests Radiology* CT Abdomen and Pelvis w/ Contrast 04/05/22 Medications DHEA 50 mg oral tablet 50 mg = 1 tab, Oral, Daily, # 30 tab, 0 Refill(s) Start Date: 03/19/22 Status: Ordered dicyclomine 10 mg oral capsule 20 mg = 2 cap, Oral, QID, # 240 cap, 3 Refill(s), Pharmacy: [facility] #[id number], 182.88, cm, 03/20/22 15:31:00 EDT, Height/Length Dosing, 95.25, kg, 03/20/22 15:31:00 EDT, Weight Dosing Start Date: 10/01/22 Stop Date: 01/29/23 Status: Ordered Flomax 0.4 mg oral capsule 0.4 mg = 1 cap, Oral, Daily, # 30 cap, 0 Refill(s) Start Date: 03/19/22 Status: Ordered levothyroxine 50 mcg (0.05 mg) oral tablet 50 mcg = 1 tab, Oral, Daily, # 30 tab, 0 Refill(s) Start Date: 03/19/22 Status: Ordered omeprazole 40 mg oral delayed release capsule 40 mg = 1 cap, Oral, Daily, # 30 cap, 0 Refill(s) Start Date: 03/19/22 Status: Ordered omeprazole 40 mg oral delayed release capsule 40 mg = 1 cap, Oral, Daily, 30 minutes before largest meal of the day., # 30 cap, 3 Refill(s), Pharmacy: [facility] #[id number], 182.88, cm, 03/20/22 15:31:00 EDT, Height/Length Dosing, 95.25, kg, 03/20/22 15:31:00 EDT, Weight Dosing Start Date: 05/01/22 Stop Date: 08/29/22 Status: Ordered rOPINIRole 0.5 mg oral tablet 0.5 mg = 1 tab, Oral, TID, # 90 tab, 0 Refill(s) Start Date: 03/19/22 Status: Ordered sertraline 150 mg oral capsule 150 mg = 1 cap, Oral, Daily, swallow whole, # 30 cap, 0 Refill(s) Start Date: 04/05/22 Status: Ordered Problem List Condition Confirmation Course Effective Dates Status H ealth Status Informant Connective tissue disease 1 Confirmed Active Diarrhea Confirmed Active Dysphonia Confirmed Active Gastroesophageal reflux disease Confirmed Active Abdominal pain, generalized Confirmed Active Hypothyroid Confirmed Active IBS - Irritable bowel syndrome Confirmed Active Dyspepsia Confirmed Active Kidney stone Confirmed Active Laryngeal trauma 2 Confirmed Active Loss of appetite Confirmed Active 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 Nausea Confirmed Active Neuralgic amyotrophy Confirmed Active Pain in throat Confirmed Active Unintentional weight loss Confirmed Active 1pt states loose connective tissue/joints 2windpipe crushed Smart Voicemail [id number] Procedures Procedure Date Related Diagnosis Body Site Status EGD AND COLONOSCOPY WITH BIOPSY 1 03/22/22 Completed Colonoscopy, flexible; diagn ostic, including collection of specimen(s) by brushing or washing, when performed (separate procedure) 03/21/22 Completed Esophagogastroduodenoscopy, flexible, transoral; diagnostic, including collection of specimen(s) by brushing or washing, when performed (separate procedure) 03/21/22 Completed Colonoscopy 2 Completed Shoulder joint operations 3 Completed Tibial tubercle aspiration Completed Vasectomy Completed 1auto-populated from documented surgical case [id number] Social History Social History Type Response Tobacco Former tobacco user Tobacco Use:. Sex Patient Care team information Care Team Personnel Name: Jennifer Thorpe APRN Position: Physician Member Role: Nurse Practitioner Address: Address: [address] [place] [id number] [place] Care Team Related Persons Name: ZOILA DAUGHERTY Enzo Address: Home [address] [place], [place] [id number] [facility]
--- OUTSIDE RECORDS SUMMARY | 2024-03-25 13:58 | XMS_ITS | Encounter Summary ---
Author Organization [facility] [place] [address] Care Team Providers Care Cement Finisher Apprentice Name Role Phone Sb Jones Primary Care Provider [phone] Encounter Details Date Type Department Care Team (Latest Contact Info) Description 03/05/2024 Travel Social History Tobacco Use Types Packs/Day Years Used Date Smoking Tobacco: Former Cigarettes Q uit: 2008 Smokeless Tobacco: Never Alcohol Use Standard Drinks/Week Comments Not Currently 0 (1 standard drink = 0.6 oz pur e alcohol) Sex and Gender Information Value Date Recorded Sex Assigned at Not on file Gender Identity Not on file Sexual Orientation Not on file documented as of this encounter Plan of Treatment Upcoming Encounters Date Type Department Care Team (Late st Contact Info) Description 05/05/2024 8:00 AM EST Office Visit Physical Therapy at [facility] [address] [place] [address] Kierra Moreno, PT [facility] PHYSICAL MEDICINE & [place] [address] 05/05/2024 9:00 AM EST Office Visit Functional Orthodoxy Program at [facility] [address] [place] [address] Mireya Nicole, OT 05/19/2024 8:00 AM EST Office Visit Physical Therapy at [facility] [address] [place] [address] Kierra Moreno, PT [facility] PHYSICAL MEDICINE & [place] [address] 06/02/2024 9:00 AM EST Office Visit Physical Therapy at [facility] [address] [place] [address] Kierra Moreno, PT [facility] PHYSICAL MEDICINE & [place] [address] documented as of this encounter Visit Diagnoses Not on filedocumented in this encounter Care Teams Cement Finisher Apprentice Relationship Specialty Start Date End Date Sb Jones PA [address] [facility] [address] [place] [address] PCP - General Internal Medicine 05/27/23 documented as of this encounter
--- OUTSIDE RECORDS SUMMARY | 2024-03-25 13:58 | XMS_ITS | Encounter Summary ---
Author Organization [facility] [place] [address] Care Team Providers Care Professor Of Genetics Name Role Phone Sb Jones Primary Care Provider [phone] Reason for Visit * Consultation (Routine) - Authorized Specialty Diagnoses / Procedures Referred By Contac t Referred To Contact Orthopaedics Diagnoses Radiculopathy of lumbar region Pelvic pain in male Jennifer Vang APRN [facility] [place] [address] [facility] [address] [place] [address] Referral ID Status Reason Start Date Expiration Date Visits Requested Visits Authorized [id number] Authorized Functional Restorative Program 11/12/2023 11/11/2024 54 53 Encounter Details Date Type Department Care Team (Late st Contact Info) Description 01/24/2024 8:00 AM EDT Office Visit Functional Jainism Program at [facility] [address] [place] [id number] Ludwig Schumacher Jr., PT Radiculopathy of lumbar region Social History Tobacco Use Types Packs/Day Years [...] documented as of this encounter Miscellaneous Notes * Treatment - Therapy - Ludwig Schumacher Jr., PT - 01/24/2024 8:00 AM EDT P Physical Therapy Note [facility] Day 14 Protocol Subjective: Vadim returns today for a scheduled follow up appointment with [facility]. Vadim reported Lower Back Stiffness this morning, but doing Good. Objectives and Treatment Received Exercises performed as a group of 6 with guidance and individualized cues for form. 30 Minutes Standing Warm Up Exercises High March Heel-kick March Squat Step Back Toe Touch Knees to Hands B Forward Lunges Side Lunges Forward Bending and Backward Bending Chin Tucks 30 Minutes Supine, Sidelying, Prone Mat Exercises (2 x 20 each) Lower trunk rotation Straight Leg Raises Curl Up/Crunch Bridge Lower Abdominal Foot Taps B Sidelying Hip Abduction Prone Scap Retraction Prone Hip Extension Press Ups Dumbbells - Bicep curls, shoulder raises to 90 degrees of flexion, straight leg deadlift, and pronereverse flies on plinth. 2x10 reps for each Weight Machines - Lat pull downs, single arm seated row, leg press, chest press, knee extensions, and back extensions. 2x10 reps for each Gui chair back extensions 2 sets to tolerance Cardio performed today: 1 Hr Walk See [facility] flowsheet for details on time held and weights completed Patient participated in all exercises. Assessment: Vadim returns for follow up visit. He was able to progress weights appropriately, while successfully maintaining form. Cues were needed intermittently for maintenance of posture during exercise and avoid compensation. He actively participated as a member of the group throughout session. Plan: Return for follow up with [facility] per protocol. Length of visit: Participated in warm-up and strengthening program from 8:00 a.m. through 10:00 a.m. today as part of group intervention with individualized cues provided. Renu Lui PTA/FREDY, present and assisting in supervision of session. Personal Function 3 Month Goals Vocational: None identified: flexible schedule, able to take stretch breaks, has a sit stand desk Recreational: Be able to hike, be able to kayak on the [place] ; be able to travel ([place]) including walking 3-5 miles. Be able to sit in car for extended period of time. 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; Be able to chop, lift and carry wood; documented in this encounter Plan of Treatment Upcoming Encounters Date Type Department Care Team (Late st Contact Info) Description 05/05/2024 8:00 AM EST Office Visit Physical Therapy at [facility] [address] [place] [address] Kierra Moreno, PT [facility] PHYSICAL MEDICINE & [place] [address] 05/05/2024 9:00 AM EST Office Visit Functional Jainism Program at [facility] [address] [place] [address] Mireya Nicole, OT 05/19/2024 8:00 AM EST Office Visit Physical Therapy at [facility] [address] [place] [address] Kierra Moreno, PT [facility] PHYSICAL MEDICINE & [place] [address] 06/02/2024 9:00 AM EST Office Visit Physical Therapy at [facility] [address] [place] [address] Kierra Moreno, PT [facility] PHYSICAL MEDICINE & [place] [address] documented as of this encounter Visit Diagnoses Diagnosis Radiculopathy of lumbar region Thoracic or lumbosacral neuritis or radiculitis, unspecified documented in this encounter Care Teams Professor Of Genetics Relationship Specialty Start Date End Date Sb Jones [place] [address] [place] [address] PCP - General Internal Medicine 05/27/23 documented as of this encounter
--- OUTSIDE RECORDS SUMMARY | 2024-03-25 13:58 | XMS_ITS | Encounter Summary ---
Author Organization [facility] [place] [address] Care Team Providers Care Merchant Banker Name Role Phone Sb Jones Primary Care Provider [phone] Reason for Visit * Consultation (Routine) - Authorized Specialty Diagnoses / Procedures Referred By Contac t Referred To Contact Orthopaedics Diagnoses Radiculopathy of lumbar region Pelvic pain in male Jennifer Vang APRN [facility] [place] [address] [facility] [address] [place] [address] Referral ID Status Reason Start Date Expiration Date Visits Requested Visits Authorized [id number] Authorized Functional Restorative Program 11/12/2023 11/11/2024 54 53 Encounter Details Date Type Department Care Team (Latest Contact Info) Description 01/27/2024 10:00 AM EDT Office Visit Functional Hindu Program at [facility] [address] [place] [phone] Jennifer Vang ELEMENTARY SCHOOL MUSIC TEACHER [facility] [place] [address] Radiculopathy of lumbar region Social History Tobacco [...] documented as of this encounter Progress Notes * Jennifer Vang APRN - 01/27/2024 10:00 AM EDT [id number] Som Gauthiereron 01/27/2024 FUNCTIONAL RSTORATION PROGRAM REHABILITATION TRAINING DISCUSSION Chief complaint requiring rehabilitation:back pain Presenter: Jennifer Vang APRN Lifestyle and wellness discussion The purpose of this discussion is to identify modifiable and non modifiable factors that influencehealth and wellness. We will define wellness and health, discuss non modifiable risk factors of morbidity and mortality and modifiable factors. We then discussed strategies for maximal management of non modifiable factors. Discussion included diet and exercise recommendations, sleep and stress management. All participants will be encouraged to participate and share helpful coping strategies. Jennifer Vang, MS, CONGREGATIONAL CARE PASTOR-BC, ELEMENTARY SCHOOL MUSIC TEACHER Nurse practitioner Pain management [facility] documented in this encounter Plan of Treatment Upcoming Encounters Date Type Department Care Team (Late st Contact Info) Description 05/05/2024 8:00 AM EST Office Visit Physical Therapy at [facility] [address] [place] [address] Kierra Moreno, PT [facility] PHYSICAL MEDICINE & [place] [address] 05/05/2024 9:00 AM EST Office Visit Functional Hindu Program at [facility] [address] [place] [address] Mireya Nicole, OT 05/19/2024 8:00 AM EST Office Visit Physical Therapy at [facility] [address] [place] [address] Kierra Moreno, PT [facility] PHYSICAL BEN[place] & [place] [address] 06/02/2024 9:00 AM EST Office Visit Physical Therapy at [facility] [address] [place] [address] Kierra Moreno, PT [facility] PHYSICAL MEDICINE & [place] [address] documented as of this encounter Visit Diagnoses Diagnosis Radiculopathy of lumbar region Thoracic or lumbosacral neuritis or radiculitis, unspecified documented in this encounter Care Teams Merchant Banker Relationship Specialty Start Date End Date Sb Jones PA [address] [place] [address] PCP - General Internal Medicine 05/27/23 documented as of this encounter
--- OUTSIDE RECORDS SUMMARY | 2024-03-25 13:58 | XMS_ITS | Encounter Summary ---
Author Organization [facility] [place] [address] Care Team Providers Care Health Technician Hearing Name Role Phone Sb Jones Primary Care Provider [phone] Reason for Visit * Reason Comments Back Pain * Consultation (Routine) - Authorized Specialty Diagnoses / Procedures Referred By Contac t Referred To Contact Orthopaedics Diagnoses Radiculopathy of lumbar region Pelvic pain in male Jennifer Vang APRN [facility] [place] [address] [facility] [address] [place] [address] Referral ID Status Reason Start Date Expiration Date Visits Requested Visits Authorized [id number] Authorized Functional Restorative Program 11/12/2023 11/11/2024 54 53 Encounter Details Date Type Department Care Team (Latest Contact Info) Description 01/28/2024 11:00 AM EDT Office Visit Functional Sikh Program at [facility] [address] [place] [address] Mireya Nicole, OT Radiculopathy of lumbar region Social History Tobacco [...] as of this encounter Progress Notes * Mireya Nicole OT - 01/28/2024 11:00 AM EDT P Occupational Therapy Note [facility] Day 16 Protocol Subjective: Mr. Judge returns today for a scheduled follow up appointment with [facility]. He reports that he has noticed an increase in his walking tolerances outside of program- which he is motivated by. Objective: Refer to [facility] protocol for details and explanation of each activity. Mr. Judge participated in the following activities: See individual flow sheets for weight progressions. Functional Therapy: 1. AM Session of functional conditioning ( X ) Completed ( ) Not Completed Exercises reviewed are as follows: - Crate Carry for 5 Minutes or 1 Handed Bucket carry 10 minutes - Push/Pull - x10 reps - Weighted Cart Twist x20 reps - Wall Clock - x10 reps Functional Crate Lifting: - Floor to Waist (straight- leg lifting) = 2 x 10 reps - Waist to Shoulder = 2 x10 reps - Occasional Lift (Squat Lift) = 1x 5 reps Participated in 10 minutes of unguarded card game activity. 2. PM Session of functional conditioning ( X ) Completed ( ) Not Completed Functional Crate Lifting: - Floor to Waist (straight- leg lifting) = 2 x 10 reps - Waist to Shoulder = 2x10 reps - Occasional Lift (Squat Lift) = 1 x 5 reps Instructed in 10 minutes of mindfulness meditation activity focusing on silent relaxation techniques. Individualized Treatment: Increased resistance levels of functional conditioning exercises according to personal recovery goals. Continued to monitor form with heavier lifting to ensure good body mechanics, safety and efficiency. Continued to discuss the process of developing a specific home program with Mr. Judge for him tocontinue progressing his functional capacities after discharge. Assisted him in mapping out his weekly schedule to plan out specifically when he will fit the four components of the self-care program into his daily routine, in preparation for finalizing his home program prior to discharge. Please see goals in initial OT evaluation report from Day 1. Daily functional conditioning progressis documented on a flow sheet which is available on request. Assessment: Mr. Judge continues to work according to protocol in order to reach his functional goals. He had a good understanding of today's conditioning principles and participated actively in progression of function. He demonstrates consistent implementation of pacing strategies, such as counteractive stretching, as a prevention technique for functional activities as physical demands increase. They demonstrate improved positional and activity tolerances during outdoor walk, requiring 3 rest breaks as an energy conservation strategy. He actively participated with initiation of training components. They were supportive of the other members of the group throughout the session. Plan: Return for follow up with [facility] per protocol. Continue training according to planned progressions towards functional recovery goals. Length of Treatment: Mr. Judge participated in program activities from 11:00 a.m. through 2:30 p.m. today as part of group intervention with individualized cues provided. Renu Lui PTA/FREDY, present and assisting in supervision of session. A total of 45 minutes was spent during that time to establish and implement individualized occupational therapy strategies. An occupational therapy student was present for this session. This occupational therapist was present and in the room for the entire session. The student participated in the delivery of services while this therapist directed the service, made skilled judgment, and was responsible for all assessmentand treatment. Personal Function 3 Month Goals Vocational: Be able to sit for 60-90 minutes, Being able to lift carry water jug (45lbs) Recreational: Be able to hike, be able to kayak on the [place] ; be able to travel ([place]) including walking 3-5 miles. Be able to sit in car for extended period of time. 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 and load locket maker; Be able to chop, lift and carry wood; documented in this encounter Plan of Treatment Upcoming Encounters Date Type Department Care Team (Late st Contact Info) Description 05/05/2024 8:00 AM EST Office Visit Physical Therapy at [facility] [address] [place] [address] Kierra Moreno, PT [facility] PHYSICAL MEDICINE & [place] [address] 05/05/2024 9:00 AM EST Office Visit Functional Sikh Program at [facility] [address] [place] [address] Mireya Nicole, OT 05/19/2024 8:00 AM EST Office Visit Physical Therapy at [facility] [address] [place] [address] Kierra Moreno, PT [facility] PHYSICAL [place]INE & [place] [address] 06/02/2024 9:00 AM EST Office Visit Physical Therapy at [facility] [address] [place] [address] Kierra Moreno, PT [facility] PHYSICAL MED[place]INE & [place] [address] documented as of this encounter Visit Diagnoses Diagnosis Radiculopathy of lumbar region Thoracic or lumbosacral neuritis or radiculitis, unspecified documented in this encounter Care Teams Health Technician Hearing Relationship Specialty Start Date End Date Sb Jones PA [address] [place] [address] PCP - General Internal Medicine 05/27/23 documented as of this encounter
--- OUTSIDE RECORDS SUMMARY | 2024-03-25 13:58 | XMS_ITS | Encounter Summary ---
Author Organization [facility] [place] [address] Care Team Providers Care Fiberglass Laminator Name Role Phone Sb Jones Primary Care Provider [phone] Reason for Visit * Reason Comments Back Pain * Consultation (Routine) - Authorized Specialty Diagnoses / Procedures Referred By Contac t Referred To Contact Orthopaedics Diagnoses Radiculopathy of lumbar region Pelvic pain in male Jennifer Vang APRN [facility] [place] [address] [facility] [address] [place] [address] Referral ID Status Reason Start Date Expiration Date Visits Requested Visits Authorized [id number] Authorized Functional Restorative Program 11/12/2023 11/11/2024 54 53 Encounter Details Date Type Department Care Team (Latest Contact Info) Description 01/29/2024 11:00 AM EDT Office Visit Functional Yazidism Program at [facility] [address] [place] [address] Mireya Nicole, OT Radiculopathy of lumbar region [...] Miscellaneous Notes * Treatment - Therapy - Kenyatta Maloney - 01/29/2024 11:00 AM EDT I was present throughout today's treatment/evaluation of the patient with my student participating.Following treatment I've reviewed, discussed and provided feedback to my occupational therapy student in which updates to the note were made. I concur with the note as written and recommend continuing treatment per Plan of Care as written. Mireya Nicole, OTR/L FRP Occupational Therapy Note [facility] Day 17 Protocol Subjective: Mr. Judge returns today for a scheduled follow up appointment with [facility]. He reports feeling good today, and is pleased with their participation in functional activities. Objective: Refer to [facility] protocol for details and explanation of each [...] Lift (Squat Lift) = 1x 5 reps 2. PM Session of functional conditioning ( X ) Completed: blinded weight assessment activity ( ) Not Completed Participated 30 minutes of unguarded functional weigh activity. Individualized Treatment: Increased resistance levels of functional conditioning exercises according to personal recovery goals. Continued to monitor form with heavier lifting to ensure good body mechanics, safety and efficiency. Please see goals in initial OT evaluation report from Day 1. Daily functional conditioning progressis documented on a flow sheet which is available on request. Assessment: Mr. Judge continues to work according to protocol in order to reach his functional goals. He had a good understanding of today's conditioning principles and participated actively in progression of function. He demonstrates independent implementation of pacing strategies, such as counteractive stretches as preventive tool for functional activities with increase physical demands. He demonstrated good carry over of body mechanics for functional lifting activity, with the ability to differentiate between lifting protocols required for an array of objects/weights. He actively participated with initiation of training components. They were supportive of the other members of the group throughout the session. Plan: Return for follow up with [facility] per protocol. Continue training according to planned progressions towards functional recovery goals. Length of Treatment: Mr. Judge participated in program activities from 11:00 a.m. through 1:15 p.m. today as part of group intervention with individualized cues provided. A total of 45 minutes wasspent during that time to establish and implement individualized occupational therapy strategies. Personal Function 3 Month Goals Vocational: Be able to sit for 60-90 minutes, Being able to lift carry water jug (45lbs) Recreational: Be able to hike, be able to kayak on the [place] ; be able to travel ([place]) including walking 3-5 miles. Be able to sit in car for extended period of time. 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 and load spa host; Be able to chop, lift and carry wood; documented in this encounter Plan of Treatment Upcoming Encounters Date Type Department Care Team (Late st Contact Info) Description 05/05/2024 8:00 AM EST Office Visit Physical Therapy at [facility] [address] [place] [address] Kierra Moreno, PT [facility] PHYSICAL MEDICINE & [place] [address] 05/05/2024 9:00 AM EST Office Visit Functional Yazidism Program at [facility] [address] [place] [address] Mireya Nicole OT 05/19/2024 8:00 AM EST Office Visit Physical Therapy at [facility] [address] [place] [address] Kierra Moreno, PT [facility] PHYSICAL MEDICINE & [place] [address] 06/02/2024 9:00 AM EST Office Visit Physical Therapy at [facility] [address] [place] [address] Kierra Moreno, PT [facility] PHYSICAL MEDICINE & [place] [address] documented as of this encounter Visit Diagnoses Diagnosis Radiculopathy of lumbar region Thoracic or lumbosacral neuritis or radiculitis, unspecified documented in this encounter Care Teams Fiberglass Laminator Relationship Specialty Start Date End Date Sb Jones PA [address] [facility] [address] [place] [address] PCP - General Internal Medicine 05/27/23 documented as of this encounter
--- OUTSIDE RECORDS SUMMARY | 2024-03-25 13:58 | XMS_ITS | Encounter Summary ---
Author Organization [facility] Maryann johnson [address] Care Team Providers Care Knitting Machine Tender Name Role Phone Sb Jones Primary Care Provider [phone] Reason for Visit * Reason Comments Back Pain * Consultation (Routine) - Authorized Specialty Diagnoses / Procedures Referred By Contac t Referred To Contact Orthopaedics Diagnoses Radiculopathy of lumbar region Pelvic pain in male Jennifer Vang APRN [facility] [place] [address] [facility] [address] [place] [address] Referral ID Status Reason Start Date Expiration Date Visits Requested Visits Authorized [id number] Authorized Functional Restorative Program 11/12/2023 11/11/2024 54 53 Encounter Details Date Type Department Care Team (Latest Contact Info) Description 03/05/2024 3:00 PM EDT Office Visit Functional Religion Program at [facility] [address] [place] [address] Mireya Nicole, OT Radiculopathy of lumbar region [...] Progress Notes * Mireya Nicole OT - 03/05/2024 3:00 PM EDT Images from the original note were not included. FUNCTIONAL BUDDHISM PROGRAM FRP 1 MONTH FOLLOW-UP Dear Som Judge, Thank you for attending your follow-up visit today. Your chief complaint requiring the FRP was low back pain radiating. He has a long standing history of back pain, with more neurological symptoms including pelvic girdle, abdomen pain, testicular pain, GI symptoms of constipation and diarrhea and lower extremity numbness and tingling. Anatomic diagnoses have included lumbar radiculopathy. Prior treatments included yoga, THC/CBD, Acetaminophen, Gabapentin, multiple injections, last LESI in October 2023, physical therapy, stretches. Activity limiting health problems include history of headaches due to stress; gastro issues due to stress, right knee reconstruction, bilateral shoulder reconstructions. Since completing the program, everything has been going well. He reports he has been completing allhis exercises at the gym about 3 days/week. Has been keeping track of his sleep and exercises. He is also scheduled to meet with pelvic floor therapy in April. He reports no numbness in his left lower extremity. Patient Active Problem List Diagnosis Code Depression F32.A Diverticulosis of colon without diverticulitis K57.30 Gastroesophageal reflux disease K21.9 History of narcotic addiction F11.21 Hypothyroidism E03.9 IBS (irritable bowel syndrome) K58.9 LLQ abdominal pain R10.32 Low back pain M54.50 Migraines G43.909 Pelvic pain in male R10.2 Peripheral polyneuropathy G62.9 Radiculopathy of lumbar region M54.16 Results of the Touch Pad Questionnaires You Filled out: 01/07/2024 01/30/2024 03/05/2024 FRP Discharge Summary INSOMNIA SEVERITY INDEX 12 (Clinically significant insomnia) 7 (Clinically significant insomnia) Incomplete Total PHQ-9 23 (Severe Depression) 6 (Mild Depression) 8 (Mild Depression) PHQ9 Total Score (Range 0-27) 23 (Severe Depression) 6 (Mild Depression) 8 (Mild Depression) Central Sensitization Inventory Incomplete Incomplete 46 (Moderate) PDQ Functional Condition 52 22 11 PDQ Psychosocial Component 35 20 13 PDQ Total Score 87 (Severe) 42 (Mild/moderate) 24 (Mild/moderate) GAD7 Total Scores 2 (Minimal Anxiety) 1 (Minimal Anxiety) 7 (Mild Anxiety) GAD7 Total Score (Range 0-21) 2 (Minimal Anxiety) 1 (Minimal Anxiety) 7 (Mild Anxiety) Facs Scoring 64 (Severe) 32 (Mild) 34 (Mild) Visual Analog Scale (VAS) for Pain Score 5.6 3.27 2.52 Pain over the last week rating score 5.43 2.91 1.69 Title Endurance and Flexibility Test Results: Reported Tolerance (minutes) First Day of FRP: End of FRP: 1 Month Follow-up: 3 Month Follow-up (optional): Sittin 120 120 Standin 60 90 Walkin 50 60 Flexibility (degrees): Neck: First Day of FRP: End of FRP: 1 Month Follow-up: 3 Month Follow-up (optional): Bending Forward: 65 65 65 Bending Back: 55 70 70 Turning Right: 75 75 80 Turning Left: 80 80 80 Tilting Right: 40 45 45 Tilting Left: 45 50 50 Low Back: First Day of FRP: End of FRP: 1 Month Follow-up: 3 Month Follow-up (optional): Bending Forward: 60 80 100 Bending Back: 15 35 40 Straight Leg Raise Right: 50 100 80 Straight Leg Raise Left: 50 100 80 Straight Leg Raise Pelvic: Treadmill First Day of FRP: End of FRP: 1 Month Follow-up: 3 Month Follow-up (optional): MET Level: Heart Rate: MET Level: Heart Rate: MET Level: Heart Rate: MET Level: Heart Rate: Treadmill Endurance: 7 150 10 156 10 157 Reason for Stopping (if applicable): L leg pain radiating up to back (hands) calf fatigue (Hands) needed to move on, feels like he could go longer [place] Occupational Performance Measure Results - 3 Month Occupational Goals: Occupational Goals FRP Day 1 P S Current Status: End of Program Current Status: 1-month Follow-up P S Work/Productive Activity: Being able to sit for 60-90 minutes 4 1 Is able to sit for a sustained period of time (120-180 min) with decreased anxiety surrounding sitting tolerance Met Goal; has a sit stand desk for home and at work. 9 9 Being able to lift, carry, and transport water jug (45lbs) 1 1 Able to lift and carry 40 pounds with increased confidence He is lifting 40 lbs and finds this is reasonable. Hasn't had the chanceto lift water jugs. 8 8 Recreation/Leisure: Be able to hike (uneven terrain, ascent above 5%, 2-3 miles) 1 1 Able to go on walks with 5% grade,walk on even terrains, walk with increased confidence Has been hiking, 2.5 round trip; one loop he hasn't done due to incline. He would like to do more. 8 8 Be able to Kayak ( getting in/out, dragging the kayak for .5 mile at 90lbs, twisting motion during paddling, - - Haven't yet had the opportunity to do Hasn't had the opportunity - - Be able to sit in a car for an extended period of time (sitting for extended periods of time), Be able to travel, ([place]) including walking 3-5 miles 1 1 Has been able to sit in a car for travel 2.5 hours straight (5 hours total) with increased confidence and decreased pain symptoms More than 2.5 hours continues to be challenging due to stiffness, however is feeling more equip to manage symptoms.8 8 Daily Living (ADL, IADL): Be able to do yard work ( lift/carry garbage, slight forward bend) 2 1 Have been able to do some yard work Met Goal 8 8 Be able to do laundry including unloading machines, transferring clothes to dryer; unload and load intelligence senior sergeant (slight forward bend) 5 1 Have been able transport objects around the house Have been able to load laundry and fold clothes Have been able to bend forward for intelligence senior sergeant Met Goal 10 10 Be able to lift and carry groceries into the house; lifting and carryings items (greater than 10lbs) 2 1 Have gone grocery shopping, carrying groceries, Met goal 10 10 Be able to chop, lift and carry wood 3 1 Haven't yet chopped wood Have been able to do some wood working tasks (stacking, splitting, repetitive movements) Met Goal, however continues to pay attention to when he is fatiguing and needs to take a break. 8 8 Total 19 8 Total 69 69 Mean score 2.37 1 Mean score 8.62 8.62 Change from Day 1 (??2 point change is clinically significant) 6.25 5.25 Lifting Goal: 75 lbs Current Lifting 80 lbs Current Lifting 90 lbs *Estrella: P=Performance Score S=Satisfaction with Performance Score ASSESSMENT of OCCUPATIONAL PERFORMANCE Physical Capacity Test Results: Lifting: (pounds/heart rate) First Day of FRP End of Program 1 Month Follow-Up 3 Month Follow-Up Repetitive Floor to Waist 20/123 80/ 106 90/86 Repetitive Waist to Shoulder 15/108 55 /143 55/84 1-Time Maximum 25 85 100 2-Handed Carry - 50 ft 10 60 80 Work Demand Level Light Medium-Heavy Medium-Heavy The results of this testing must be integrated with clinical findings and other observations Your Current Work/Functional Status: 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 Status of Discharge Plans since Last Visit/Follow-up: 3 days/week 3 repetitions of the gym routine,15 minutes on cardio at the gym, currently going to a gym and has been keeping track of his exercises. Completes yoga on Saturday Self-care exercise program Health club program for 3 months Type of Exercise Specific recommendations Frequency Mindfulness/ Relaxation EVERYDAY Deep Breathing/Grounding Nature Binaural Beats Yoga 2x/day AM & PM Stretching In the Afternoon EVERYDAY Mat stretches (mp3 in myDH 5-7x/wk MECHANICAL STRATEGIES: Back: Press Ups from floor/standing backbends against table &/or Press-ups 5x a Day 10 Reps Each 5x/day Cardio/Aerobic/ Endurance (gives endorphine boost - natural pain reliever) Choose from: Walk Step routine (mp3 in myDH) Warm Up [place] (mp3 in myDH) Hiking TM or Elliptical Kayaking 3-7x/wk For 20-30 min Strength training Gym Routine/Theraband Routine OR Mat Strengthening Routine OR Crate Lifting (1x/wk) 3x/wk Your Self-Care Flare-up Plan: Don't Panic, take a deep breath or two Is this the same chronic pain or new pain? If new pain and you are still having trouble after a few days, have it checked out. Check Your Head (What things in life are stressful? What automatic thoughts are you having about the pain?) Try Mechanical Strategies (See Stretching) to balance repeated daily movements (See Self Care: Counter-acting Daily Strains). You may need to do these strategies more often and see if they help Resume exercise routine? Have you stopped doing some of all of your exercises? Start slowly if it's challenging (10 min walk or more if you can.) Use Mindfulness/relaxation strategies to calm the nervous system. Use passive coping tools (ex. heat, ice, massage, etc. - temporary relief) ONLY to help return to active tools (exercise) that will cause lasting change. Assessment: Mr. Judge has maintained all his functional gains made at the end of program. He hasbeen able to implement all aspects of his home exercise plan. 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 Overall he is pleased with his progress and has done well implementing all pacing strategies into his routine, overall improving his quality of life. PLAN: Exercise: Continued with current plan Next [facility] Follow-up Date: 3 month follow up scheduled for May 05 60 minutes was spent to review status of goals, test physical performance, and plan for continued self care. Cc: Som Judge [address] [place] [phone] [address] documented in this encounter Plan of Treatment Upcoming Encounters Date Type Department Care Team (Late st Contact Info) Description 05/05/2024 8:00 AM EST Office Visit Physical Therapy at [facility] [address] [place] [address] Kierra Moreno, PT [facility] PHYSICAL MEDICINE & [place] [address] 05/05/2024 9:00 AM EST Office Visit Functional Religion Program at [facility] [address] [place] [address] Mireya Nicole OT 05/19/2024 8:00 AM EST Office Visit Physical Therapy at [facility] [address] [place] [address] Kierra Moreno, PT [facility] PHYSICAL MEDICINE & [place] [address] 06/02/2024 9:00 AM EST Office Visit Physical Therapy at [facility] [address] [place] [address] Kierra Moreno, PT [facility] PHYSICAL MEDICINE & [place] [address] documented as of this encounter Visit Diagnoses Diagnosis Radiculopathy of lumbar region Thoracic or lumbosacral neuritis or radiculitis, unspecified documented in this encounter Care Teams Knitting Machine Tender Relationship Specialty Start Date End Date Sb Jones PA [address] [place] [address] PCP - General Internal Medicine 05/27/23 documented as of this encounter
--- OUTSIDE RECORDS SUMMARY | 2024-03-25 13:58 | XMS_ITS | Encounter Summary ---
Author Organization [facility] Address [facility] [place] [address] Care Team Providers Care Ticket Dispatcher Name Role Phone Sb Jones Primary Care Provider [phone] Encounter Details Date Type Department Care Team (Latest Contact Info) Description 01/27/2024 Travel Social History Tobacco Use Types Packs/Day [...] AM EST Office Visit Physical Therapy at [facility] [address] [place] [address] Kierra Moreno, PT [facility] PHYSICAL MEDICINE & [place] [address] 05/05/2024 9:00 AM EST Office Visit Functional Judaism Program at [facility] [address] [place] [address] Mireya Nicole, OT 05/19/2024 8:00 AM EST Office Visit Physical Therapy at [facility] [address] [place] [address] Kierra Moreno, PT [facility] PHYSICAL MEDICINE & [place] [address] 06/02/2024 9:00 AM EST Office Visit Physical Therapy at [facility] [address] [place] [address] Kierra Moreno, PT [facility] PHYSICAL MEDICINE & [place] [address] documented as of this encounter Visit Diagnoses Not on filedocumented in this encounter Care Teams Ticket Dispatcher Relationship Specialty Start Date End Date Sb Jones PA [address] [facility] [address] [place] [address] PCP - General Internal Medicine 05/27/23 documented as of this encounter
--- OUTSIDE RECORDS SUMMARY | 2024-03-25 13:58 | XMS_ITS | Continuity of Care Document ---
Author Organization [facility] Address [address] [place] [address] Encounter LTTL_ID FIN [id number] Date(s): 10/01/22 - 10/01/22 [facility] [address] [place] [address]- Encounter Diagnosis Encounter for other administrative examinations(Final) [...] QID, # 240 cap, 3 Refill(s), Pharmacy: [facility] #[id number], 182.88, cm, 03/20/22 15:31:00 EDT, Height/Length Dosing, [...] day., # 30 cap, 3 Refill(s), Pharmacy: [facility] #[id number], 182.88, cm, 03/20/22 15:31:00 EDT, Height/Length Dosing, [...] 1pt states loose connective tissue/joints 2windpipe crushed [employer] [id number] Procedures Procedure Date Related Diagnosis Body Site [...] Vasectomy Completed 1auto-populated from documented surgical case [id number] Social History Social History Type Response Tobacco Former tobacco user Tobacco Use:. Sex Patient Care team information Care Team Personnel Name: Jennifer Thorpe APRN Position: Physician Member Role: Nurse Practitioner Address: Address: [address] [place] [phone] [place] Care Team Related Persons Name: ZOILA DAUGHERTY Enzo Address: Home [address] [place], [place] [id number] [facility]
--- OUTSIDE RECORDS SUMMARY | 2024-03-25 13:58 | XMS_ITS | Encounter Summary ---
Author Organization [facility] Address [facility] sandrasandro [place] [id number] Care Team Providers Care Lead Database Administrator Name Role Phone Sb Jones Primary Care Provider [phone] Reason for Referral * Physical Therapy (Routine) - Authorized Specialty Diagnoses / Procedures Referred By Contac t Referred To Contact Physical Therapy Diagnoses Pain in testicle, unspecified laterality Jennifer Vang APRN [facility] [place] [address] Unknown None Referral ID Status Reason Start Date Expiration Date Visits Requested Visits Authorized [id number] Authorized Evaluate and Treat PCP Updated and/or Approved 01/31/2024 07/29/2024 60 32 * Physical Therapy (Routine) - Authorized Specialty Diagnoses / Procedures Referred By Contac t Referred To Contact Physical Therapy Diagnoses Radiculopathy of lumbar region Jennifer Vang APRN [facility] [place] [address] Unknown None Referral ID Status Reason Start Date Expiration Date Visits Requested Visits Authorized [id number] Authorized Evaluate and Treat Non PCP 01/31/2024 07/29/2024 12 12 Reason for Visit * Consultation (Routine) - Authorized Specialty Diagnoses / Procedures Referred By Contac t Referred To Contact Orthopaedics Diagnoses Radiculopathy of lumbar region Pelvic pain in male Jennifer Vang APRN [facility] [place] [address] [facility] [address] [place] [address] Referral ID Status Reason Start Date Expiration Date Visits Requested Visits Authorized [id number] Authorized Functional Restorative Program 11/12/2023 11/11/2024 54 53 Encounter Details Date Type Department Care Team (Latest Contact Info) Description 01/31/2024 10:00 AM EDT Office Visit Functional Religion Program at [facility] [address] [place] [address] Jennifer Vang TAB MACHINE OPERATOR [facility] [place] [address] Radiculopathy of lumbar region (Primary Dx); Pain in testicle, unspecified laterality Social History Tobacco Use Types Packs/Day Years [...] Progress Notes * Jennifer Vang APRN - 01/31/2024 10:00 AM EDT Images from the original note were not included. [facility] Functional Religion Program Discharge Summary Mr. Som Judge [id number] 01/30/2024 I, Cortney Hawk, am compiling the information for Jennifer Vang APRN to discuss and review with the patient. Mr. Judge attended the Functional Religion Program (FRP) from January 06 to January . The FRP combines progressive physical training, pain and disability education, behavioral medicine and vocational/activity planning geared toward achieving personal functional goals. I metwith Mr. Judge for 30 minutes today to discuss his discharge and progress in the Functional Religion Program as written in this note. We discussed medical progress, current pain and functional status, compared that status to personal recovery goals and established the plan of care accordinglyas below. Mr. Judge attended the FRP for 19 of 19 days and participation level was consistent and high. Use of self care skills includes stretching, strengthening, cardiovascular conditioning, relaxation and pacing skills. The chief complaint requiring rehabilitation was low back pain radiating. He has a long standing history of back pain, with more neurological symptoms including pelvic girdle, abdomen pain,testicularpain, GI symptoms of constipation and diarrhea and lower extremity numbness and tingling. Anatomic diagnoses have included lumbar radiculopathy. Prior treatments included yoga, THC/CBD, Acetaminophen, Gabapentin, multiple injections, last LESI in October 2023, physical therapy, stretches. Activity limiting health problems include history of headaches due to stress; gastro issues due to stress, right knee reconstruction, bilateral shoulder reconstructions. 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 The progress during the FRP was remarkable for the following outcomes. Results of the Questionnaires You Filled out: 01/07/2024 01/30/2024 FRP Discharge Summary INSOMNIA SEVERITY INDEX (0-28) 12 (Clinically significant insomnia) 7 (Clinically significant insomnia) Total PHQ-9 (0-27) 23 (Severe Depression) 6 (Mild Depression) Central Sensitization Inventory (0-60+) 58 Severe 55 Severe PDQ Total Score (0-150) 87 (Severe) 42 (Mild/moderate) GAD7 Total Score (Range 0-21) 2 (Minimal Anxiety) 1 (Minimal Anxiety) Facs Scoring (0-100) 64 (Severe) 32 (Mild) Visual Analog Scale (VAS) for Pain Score (0-10) 5.6 3.27 Pain over the last week rating score (0-10) 5.43 2.91 Title Endurance and Flexibility Test Results: Reported Tolerance (minutes) First Day of FRP: End of FRP: 1 Month Follow-up: 3 Month Follow-up (optional): Sittin 120 Standin 60 Walkin 50 Flexibility (degrees): Neck: First Day of FRP: End of FRP: 1 Month Follow-up: 3 Month Follow-up (optional): Bending Forward: 65 65 Bending Back: 55 70 Turning Right: 75 75 Turning Left: 80 80 Tilting Right: 40 45 Tilting Left: 45 50 Low Back: First Day of FRP: End of FRP: 1 Month Follow-up: 3 Month Follow-up (optional): Bending Forward: 60 80 Bending Back: 15 35 Straight Leg Raise Right: 50 100 Straight Leg Raise Left: 50 100 Straight Leg Raise Pelvic: Treadmill First Day of FRP: End of FRP: 1 Month Follow-up: 3 Month Follow-up (optional): MET Level: Heart Rate: MET Level: Heart Rate: MET Level: Heart Rate: MET Level: Heart Rate: Treadmill Endurance: 7 150 10 156 Reason for Stopping (if applicable): L leg pain radiating up to back (hands) calf fatigue FRP OT Objective Measures Physical Capacity Test Results: Lifting: (pounds/heart rate) First Day of FRP End of Program 1 Month Follow-Up 3 Month Follow-Up Repetitive Floor to Waist 20/123 80/ 106 Repetitive Waist to Shoulder 15/108 55 /143 1-Time Maximum 25 85 2-Handed Carry - 50 ft 10 60 Work Demand Level Light Medium-Heavy Your Functional Goals: Functional Goals- First Day of FRP: Progress Toward Goals- End of FRP: Progress Toward Goals- 1 Month Follow-up: Progress Toward Goals- 3 Month Follow-up (optional): Vocational: Being able to sit for 60-90 minutes Being able to lift, carry, and transport water jug (45lbs) Is able to sit for a sustained period of time (120-180 min) with decreased anxiety surrounding sitting tolerance Able to lift and carry 40 pounds with increased confidence Recreational: Be able to hike (uneven terrain, ascent above 5%, 2-3 miles) Be able to Kayak ( getting in/out, dragging the kayak for .5 mile at 90lbs, twisting motion during paddling) Be able to sit in a car for an extended period of time (sitting for extended periods of time), Be able to travel, ([place]) including walking 3-5 miles Able to go on walks with 5% grade, walk on even terrains, walk with increased confidence Haven't yet had the opportunity to do Has been able to sit in a car for travel 2.5 hours straight (5 hours total) with increased confidence and decreased pain symptoms Daily Living: Be able to do yard work ( lift/carry garbage, slight forward bend) Be able to do laundry including unloading machines, transferring clothes to dryer; unload and load disc ruler operator (slight forward bend) Be able to lift and carry groceries into the house; lifting and carryings items (greater than 10lbs) Be able to chop, lift and carry wood Have been able to do some yard work Have been able transport objects around the house Have been able to load laundry and fold clothes Have been able to bend forward for disc ruler operator Have gone grocery shopping, carrying groceries, Haven't yet chopped wood Have been able to do some wood working tasks (stacking, splitting, repetitive movements) Lifting Goal: 75 End of Program Lifting Status: 80 NOTE: Additional team members present for discharge meeting include Mireya Nicole, OTR/L andReza Schumacher Jr., DPT. Discharge Plan Self-care exercise program Health club program for [...] Step routine (mp3 in myDH) Warm Up [place] (mp3 in myDH) Hiking TM or Elliptical [...] tools (exercise) that will cause lasting change. 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 a) Anticipated work readiness date: February 03, 2024 i) with restrictions: as per work capability form within tolerances and capacities noted above Follow-up Primary Care: KAVITHA Alatorre Medication Management: KAVITHA Alatorre Please arrive to all post program appointments wearing gym clothes and sneakers. You will be re-tested at these visits. Post Program Appointment Provider Arrival Time Location 1 Week Follow Up February 07, 2024 Reza Schumacher Jr., DPT 8:[address] 1 Month Follow Up March 05, 2024 Tablet Questionnaire SURJIT Marrero/Enzo Vang APRN 2:30 PM 3:00 PM 4:[address] *Please note that your tablet questionnaires can be completed through [facility] the day prior to your appointment. Please plan for a 1-year survey follow-up. IJennifer, have reviewed the above compiled information and agree with its accuracy. I spentthe the entire 30 minutes with the patient discussing progress, goals and plans as documented in this note. cc: Som Judge [address] [facility] [address] [place] [id number] documented in this encounter Plan of Treatment Upcoming Encounters Date Type Department Care Team (Late st Contact Info) Description 05/05/2024 8:00 AM EST Office Visit Physical Therapy at [facility] [address] [place] [address] Kierra Moreno, PT [facility]YSICAL [facility] [place] [address] 05/05/2024 9:00 AM EST Office Visit Functional Religion Program at [facility] [address] [place] [facility] [place] [address] Mireya Nicole, OT 05/19/2024 8:00 AM EST Office Visit Physical Therapy at [facility] [address] [place] [facility] [place] [address] Kierra Moreno, PT [facility] PHYSICAL MED[facility]INE [place] [address] 06/02/2024 9:00 AM EST Office Visit Physical Therapy at [facility] [address] [facility] [place] [address] Kierra Moreno, PT [facility] PHYSICAL MED[facility]INE [facility] [place] [address] Scheduled Referrals Name Type Priority Associated Diagnoses Orde r Schedule Referral to Physical Therapy Outpatient Referral Routine Radiculopathy of lumbar region Ordered: 01/31/2024 Referral to Physical Therapy Outpatient Referral Routine Pain in testicle, unspecified laterality Ordered: 01/31/2024 documented as of this encounter Visit Diagnoses Diagnosis Radiculopathy of lumbar region- Primary Thoracic or lumbosacral neuritis or radiculitis, unspecified Pain in testicle, unspecified laterality documented in this encounter Care Teams Lead Database Administrator Relationship Specialty Start Date End Date Sb Jones PA [address] [place] [address] PCP - General Internal Medicine 05/27/23 documented as of this encounter
--- OUTSIDE RECORDS SUMMARY | 2024-03-25 13:58 | XMS_ITS | Encounter Summary ---
Author Organization [facility] [place] [address] Care Team Providers Care Hydraulic Rockbreaker Operator Name Role Phone Sb Jones Primary Care Provider [phone] Reason for Visit * Consultation (Routine) - Authorized Specialty Diagnoses / Procedures Referred By Contac t Referred To Contact Orthopaedics Diagnoses Radiculopathy of lumbar region Pelvic pain in male Jennifer Vang APRN [facility] [place] [address] [facility] [address] [place] [address] Referral ID Status Reason Start Date Expiration Date Visits Requested Visits Authorized [id number] Authorized Functional Restorative Program 11/12/2023 11/11/2024 54 53 Encounter Details Date Type Department Care Team (Latest Contact Info) Description 03/05/2024 4:00 PM EDT Office Visit Functional Lutheran Program at [facility] [address] [place] [address] Jennifer Vang POWERED BRIDGE SPECIALIST [facility] [place] [address] Radiculopathy of lumbar region Social History Tobacco [...] Progress Notes * Jennifer Vang APRN - 03/05/2024 4:00 PM EDT Chief Complaint: Radiating low back pain SUBJECTIVE: Som Judge is here for 1 month follow up to completion of the Functional Lutheran program. In general, things have gone well. He notes that his sleep has improved, and he now hasa job at this time. He notes that he has been doing regular cardio and weight training during the week. He lost about 5 lb. He has not been monitoring portions with nutrition, but he has maintained hi s dietary modifications since. OBJECTIVE; Functional goals and progress Towards those goals is: Insomnia severity index incomplete PHQ-9 8 PDQ total 24 GAD7 7 Walking improved to 60 minutes Flexibility: neck - stable; low back - normal Overall, goals either exceeded or maintained. ASSESSMENT: Chief complaint requiring rehabilitation: Radiating low back pain PLAN; Next follow up will be in 3 months, 20 out of 25 minutes was spent in face to face consultation of present symptoms and future plan of care. Jennifer Vang, MS, BLUE PRINTS TRIMMER-BC, POWERED BRIDGE SPECIALIST Nurse practitioner Pain management [facility] Madyson Rincon, have performed the documentation for this encounter in the presence ofand acting as a scribe for Jennifer Vang APRN. documented in this encounter Plan of Treatment Upcoming Encounters Date Type Department Care Team (Late st Contact Info) Description 05/05/2024 8:00 AM EST Office Visit Physical Therapy at [facility] [address] [place] [address] Kierra Moreno, PT [facility] PHYSICAL MEDICINE & [place] [address] 05/05/2024 9:00 AM EST Office Visit Functional Lutheran Program at [facility] [address] [place] [address] Mireya Nicole, OT 05/19/2024 8:00 AM EST Office Visit Physical Therapy at [facility] [address] [place] [address] Kierra Moreno, PT [facility] PHYSICAL MEDICINE & [place] [address] 06/02/2024 9:00 AM EST Office Visit Physical Therapy at [facility] [address] [address] Kierra Moreno, PT [facility] PHYSICAL MEDICINE & [place] [address] documented as of this encounter Visit Diagnoses Diagnosis Radiculopathy of lumbar region Thoracic or lumbosacral neuritis or radiculitis, unspecified documented in this encounter Care Teams Hydraulic Rockbreaker Operator Relationship Specialty Start Date End Date Sb Jones PA [address] [facility] 1 [place] [address] PCP - General Internal Medicine 05/27/23 documented as of this encounter
--- OUTSIDE RECORDS SUMMARY | 2024-03-25 13:58 | XMS_ITS | Encounter Summary ---
Author Organization [facility] Address [facility] [place] [address] Care Team Providers Care Children'S Aide Name Role Phone Sb Jones Primary Care Provider [phone] Encounter Details Date Type Department Care Team (Latest Contact Info) Description 01/24/2024 Travel Social History Tobacco Use Types Packs/Day [...] AM EST Office Visit Physical Therapy at [facility] [address] [place] [address] Kierra Moreno, PT [facility] PHYSICAL MEDICINE & [place] [address] 05/05/2024 9:00 AM EST Office Visit Functional Catholic Program at [facility] [address] [place] [address] Mireya Nicole, OT 05/19/2024 8:00 AM EST Office Visit Physical Therapy at [facility] [address] [place] [address] Kierra Moreno, PT [facility] PHYSICAL MEDICINE & [place] [address] 06/02/2024 9:00 AM EST Office Visit Physical Therapy at [facility] [address] [place] [address] Kierra Moreno, PT [facility] PHYSICAL MEDICINE & [place] [address] documented as of this encounter Visit Diagnoses Not on filedocumented in this encounter Care Teams Children'S Aide Relationship Specialty Start Date End Date Sb Jones PA [address] [facility] 1 [place] [address] PCP - General Internal Medicine 05/27/23 documented as of this encounter
--- OUTSIDE RECORDS SUMMARY | 2024-03-25 13:58 | XMS_ITS | Encounter Summary ---
Author Organization [facility] Address [facility] [place] [address] Care Team Providers Care Montessori Program Director Name Role Phone Sb Jones Primary Care Provider [phone] Encounter Details Date Type Department Care Team (Latest Contact Info) Description 02/07/2024 Travel Social History Tobacco Use Types Packs/Day [...] AM EST Office Visit Physical Therapy at [facility] [address] [place] [address] Kierra Moreno, PT [facility] PHYSICAL MEDICINE & [place] [address] 05/05/2024 9:00 AM EST Office Visit Functional Buddhism Program at [facility] [address] [place] [address] Mireya Nicole, OT 05/19/2024 8:00 AM EST Office Visit Physical Therapy at [facility] [address] [place] [address] Kierra Moreno, PT [facility] PHYSICAL MEDICINE & [place] [address] 06/02/2024 9:00 AM EST Office Visit Physical Therapy at [facility] [address] [place] [address] Kierra Moreno, PT [facility] PHYSICAL MEDICINE & [place] [address] documented as of this encounter Visit Diagnoses Not on filedocumented in this encounter Care Teams Montessori Program Director Relationship Specialty Start Date End Date Sb Jones PA [address] [facility] 1 [place] [address] PCP - General Internal Medicine 05/27/23 documented as of this encounter
--- OUTSIDE RECORDS SUMMARY | 2024-03-25 13:58 | XMS_ITS | Encounter Summary ---
Author Organization [facility] Address [place] [address] Care Team Providers Care Recruiting Administrator Name Role Phone Sb Jones Primary Care Provider Encounter Details Date Type Department Care Team (Latest Contact Info) Description 01/28/2024 Travel Social History Tobacco Use Types Packs/Day [...] AM EST Office Visit Physical Therapy at [facility] [address] [place] [address] Kierra Moreno, PT [facility] PHYSICAL MEDICINE & [place] [address] 05/05/2024 9:00 AM EST Office Visit Functional Yazdanism Program at [facility] [address] [place] [address] Mireya Nicole, OT 05/19/2024 8:00 AM EST Office Visit Physical Therapy at [facility] [address] [place] [address] Kierra Moreno, PT [facility] PHYSICAL MEDICINE & [place] [address] 06/02/2024 9:00 AM EST Office Visit Physical Therapy at [facility] [address] [place] [address] Kierra Moreno, PT [facility] PHYSICAL MEDICINE & [place] [address] documented as of this encounter Visit Diagnoses Not on filedocumented in this encounter Care Teams Recruiting Administrator Relationship Specialty Start Date End Date Sb Jones PA [address] [facility] 1 [place] [address] PCP - General Internal Medicine 05/27/23 documented as of this encounter
--- OUTSIDE RECORDS SUMMARY | 2024-03-25 13:58 | XMS_ITS | Encounter Summary ---
Author Organization [facility] Address [facility] [place] [address] Care Team Providers Care Research Associate Molecular Biology Name Role Phone Sb Jones Primary Care Provider [phone] Encounter Details Date Type Department Care Team (Latest Contact Info) Description 01/30/2024 Travel Social History Tobacco Use Types Packs/Day [...] AM EST Office Visit Physical Therapy at [facility] [address] [place] [address] Kierra Moreno, PT [facility] PHYSICAL MEDICINE & [place] [address] 05/05/2024 9:00 AM EST Office Visit Functional Baptist Program at [facility] [address] [place] [address] Mireya Nicole, OT 05/19/2024 8:00 AM EST Office Visit Physical Therapy at [facility] [address] [place] [address] Kierra Moreno, PT [facility] PHYSICAL MEDICINE & [place] [address] 06/02/2024 9:00 AM EST Office Visit Physical Therapy at [facility] [address] [place] [address] Kierra Moreno, PT [facility] PHYSICAL MEDICINE & [place] [address] documented as of this encounter Visit Diagnoses Not on filedocumented in this encounter Care Teams Research Associate Molecular Biology Relationship Specialty Start Date End Date Sb Jones PA [address] [facility] 1 [place] [address] PCP - General Internal Medicine 05/27/23 documented as of this encounter
--- OUTSIDE RECORDS SUMMARY | 2024-03-25 13:58 | XMS_ITS | Encounter Summary ---
Author Organization [facility] Address [facility] [place] [address] Care Team Providers Care Cinder Pit Worker Name Role Phone Sb Jones Primary Care Provider [phone] Encounter Details Date Type Department Care Team (Latest Contact Info) Description 01/31/2024 Travel Social History Tobacco Use Types Packs/Day [...] AM EST Office Visit Physical Therapy at [facility] [address] [place] [address] Kierra Moreno, PT [facility] PHYSICAL MEDICINE & [place] [address] 05/05/2024 9:00 AM EST Office Visit Functional Orthodoxy Program at [facility] [address] [place] [address] Mireya Nicole, OT 05/19/2024 8:00 AM EST Office Visit Physical Therapy at [facility] [address] [place] [address] Kierra Moreno, PT [facility] PHYSICAL MEDICINE & [place] [address] 06/02/2024 9:00 AM EST Office Visit Physical Therapy at [facility] [address] [place] [address] Kierra Moreno, PT [facility] PHYSICAL MEDICINE & [place] [address] documented as of this encounter Visit Diagnoses Not on filedocumented in this encounter Care Teams Cinder Pit Worker Relationship Specialty Start Date End Date Sb Jones PA [address] [facility] 1 [place] [address] PCP - General Internal Medicine 05/27/23 documented as of this encounter
--- OUTSIDE RECORDS SUMMARY | 2024-03-25 13:58 | XMS_ITS | Encounter Summary ---
Author Organization [facility] [place] [address] Care Team Providers Care Fun House Attendant Name Role Phone Sb Jones Primary Care Provider [phone] Reason for Visit * Reason Comments Back Pain * Consultation (Routine) - Authorized Specialty Diagnoses / Procedures Referred By Contac t Referred To Contact Orthopaedics Diagnoses Radiculopathy of lumbar region Pelvic pain in male Jennifer Vang APRN [facility] [place] [address] [facility] [address] [place] [address] Referral ID Status Reason Start Date Expiration Date Visits Requested Visits Authorized [id number] Authorized Functional Restorative Program 11/12/2023 11/11/2024 54 53 Encounter Details Date Type Department Care Team (Latest Contact Info) Description 01/27/2024 11:00 AM EDT Office Visit Functional Yazidism Program at [facility] [address] [place] [phone] Mireya Nicole, OT Radiculopathy of lumbar region [...] Treatment - Therapy - Kenyatta Maloney - 01/27/2024 11:00 AM EDT I was present throughout today's treatment/evaluation of the patient with my student participating.Following treatment I've reviewed, discussed and provided feedback to my occupational therapy student in which updates to the note were made. I concur with the note as written and recommend continuing treatment per Plan of Care as written. Mireya Nicole, OTR/L FRP Occupational Therapy Note [facility] Day 15 Protocol Subjective: Mr. Judge returns today for a scheduled follow up appointment with [facility]. He reports attending a wedding this weekend, and was able to dance for the first time in a while. He expressed some LE weakness and fatigue during morning functional conditioning, in addition to R testicular pain. Objective: Refer to [facility] protocol for details and explanation of each activity. Mr. Judge participated in the following activities: See individual flow sheets for weight progressions. Group of 6 Functional Therapy: 1. AM Session of functional [...] reps Participated in 10 minutes of unguarded beach ball volley ball activity. 2. PM Session of outdoor walk ( X ) Completed ( ) Not Completed Instructed in 12 minutes of mindfulness meditation activity focusing on visual imagery relaxation techniques. Participated in a 40 minute outdoor walk for 1.5 miles including going up/down stairs, slight incline, uneven terrain, and hills, and 15 minutes of unguarded card game activity activity. Individualized Treatment: Increased resistance levels of functional conditioning exercises according to personal recovery goals. Continued to monitor form with heavier lifting to ensure good body mechanics, safety and efficiency. Weekend Home Program: Reviewed Mr. Judge's participation in assigned home exercise program over the past weekend. He reports he was able to partially complete his home program: Walking 30 minutes: Completed Stretching twice a day: Completed Functional lifting: Completed with functional tasks Mindfulness meditation: Completed Please see goals in initial OT evaluation report from Day 1. Daily functional conditioning progressis documented on a flow sheet which is available on request. Assessment: Mr. Judge continues to work according to protocol in order to reach his functional goals. He had a good understanding of today's conditioning principles and participated actively in progression of function. He demonstrates independent implementation of counteractive stretching strategies to improve participation in functional tasks that require repetitive forward bends. They demonstrate increased walking and standing tolerances during unguarded activity and outdoor walks. He actively participated with initiation of training components. They were supportive of the other members of the group throughout the session. Plan: Return for follow up with FRP per protocol. Continue training according to planned progressions towards functional recovery goals. Length of Treatment: Mr. Judge participated in program activities from 11:00 a.m. through 2:45 p.m. today as part of group intervention [...] hike, be able to kayak on the [place] ; be able to travel ([place]) including walking 3-5 miles. Be able to sit in car for extended period of time. 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; Be able to chop, lift and carry wood; documented in this encounter Plan of Treatment Upcoming Encounters Date Type Department Care Team (Late st Contact Info) Description 05/05/2024 8:00 AM EST Office Visit Physical Therapy at [facility] [address] [place] [address] Kierra Moreno, PT [facility] PHYSICAL MEDICINE [place] [address] 05/05/2024 9:00 AM EST Office Visit Functional Yazidism Program at [facility] [address] [place] [address] Mireya Nicole, OT 05/19/2024 8:00 AM EST Office Visit Physical Therapy at [facility] [address] [place] [address] Kierra Moreno, PT [facility] PHYSICAL B[place] [address] 06/02/2024 9:00 AM EST Office Visit Physical Therapy at [facility] [address] [place] [address] Kierra Moreno, PT [facility] PHYSICAL MEDICINE & [place] [address] documented as of this encounter Visit Diagnoses Diagnosis Radiculopathy of lumbar region Thoracic or lumbosacral neuritis or radiculitis, unspecified documented in this encounter Care Teams Fun House Attendant Relationship Specialty Start Date End Date Sb Jones PA [address] [place] [address] PCP - General Internal Medicine 05/27/23 documented as of this encounter
--- OUTSIDE RECORDS SUMMARY | 2024-03-25 13:58 | XMS_ITS | Encounter Summary ---
Author Organization [facility] [place] [address] Care Team Providers Care Fire Watchman Name Role Phone Sb Jones Primary Care Provider [phone] Reason for Visit * Reason Comments Back Pain * Consultation (Routine) - Authorized Specialty Diagnoses / Procedures Referred By Contac t Referred To Contact Orthopaedics Diagnoses Radiculopathy of lumbar region Pelvic pain in male Jennifer Vang APRN [facility] [address] [facility] [address] [place] [address] Referral ID Status Reason Start Date Expiration Date Visits Requested Visits Authorized [id number] Authorized Functional Restorative Program 11/12/2023 11/11/2024 54 53 Encounter Details Date Type Department Care Team (Latest Contact Info) Description 01/30/2024 11:00 AM EDT Office Visit Functional Hoahaoism Program at [facility] [address] [place] [phone] Mireya Nicole, OT Radiculopathy of lumbar region [...] Progress Notes * Mireya Nicole OT - 01/30/2024 11:00 AM EDT FRP Occupational Therapy Note P Re-evaluation/Final Testing [facility] Day 18 Protocol Subjective: Mr. Judge returns today for a scheduled follow up appointment with [facility]. He reports feeling hopeful for their future for the first time in a long time. He expressed that the program hascarried over into their daily activities, with increased participation in their roles at home and work- with noticeable differences with their partner. Objective: Refer to [facility] protocol for details and explanation of each activity. Mr. Judge participated in the following activities: AM Re-evaluation ( X ) Completed ( ) Not completed PM Walk, stretch, unguarded activity ( X ) Completed ( ) Not completed Re-evaluation assessed functional strength, work readiness, and status of goals. Discussed the concept of a work readiness date in preparation for discharge tomorrow. Outlined a specific home lifting program with Mr. Judge for him to continue progressing his functional capacities after discharge. Self-Care (ADL & IADL) & Leisure Activities: Occupational Goals [facility] Day 1 P S Current Status: End of Program Current Status: 1-month Follow-up P S Work/Productive Activity: Being able to sit for 60-90 minutes 4 1 Is able to sit for a sustained period of time (120-180 min) with decreased anxiety surrounding sitting tolerance Being able to lift, carry, and transport water jug (45lbs) 1 1 Able to lift and carry 40 pounds with increased confidence Recreation/Leisure: Be able to hike (uneven terrain, ascent above 5%, 2-3 miles) 1 1 Able to go on walks with 5% grade,walk on even terrains, walk with increased confidence Be able to Kayak ( getting in/out, dragging the kayak for .5 mile at 90lbs, twisting motion during paddling, 1 1 Haven't yet had the opportunity to do Be able to sit in a car for an extended period of time (sitting for extended periods of time), Be able to travel, ([place]) including walking 3-5 miles 1 1 Has been able to sit in a car for travel 2.5 hours straight (5 hours total) with increased confidence and decreased pain symptoms Daily Living (ADL, IADL): Be able to do yard work ( lift/carry garbage, slight forward bend) 2 1 Have been able to do some yard work Be able to do laundry including unloading machines, transferring clothes to dryer; unload and load title insurance 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 (slight forward bend) 5 1 Have been able transport objects around the house Have been able to load laundry and fold clothes Have been able to bend forward for title insurance 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 Be able to lift and carry groceries into the house; lifting and carryings items (greater than 10lbs) 2 1 Have gone grocery shopping, carrying groceries, Be able to chop, lift and carry wood 3 1 Haven't yet chopped wood Have been able to do some wood working tasks (stacking, splitting, repetitive movements) Total 20 9 Total Mean score 2.2 1 Mean score Change from Day 1 (??2 point change is clinically significant) Lifting Goal: 75 lbs Current Lifting 80 lbs Current Lifting lbs *Estrella: P=Performance Score S=Satisfaction with Performance Score ASSESSMENT of OCCUPATIONAL PERFORMANCE Physical Capacity Test Results: Lifting: (pounds/heart rate) First Day of FRP End of Program 1 Month Follow-Up 3 Month Follow-Up Repetitive Floor to Waist 20/123 80/ 106 Repetitive Waist to Shoulder 15/108 55 /143 1-Time Maximum 25 85 2-Handed Carry - 50 ft 10 60 Work Demand Level Light Medium-Heavy The results of this testing must be integrated with clinical findings and other observations to derive a final assessment of work capacity. 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 a) Anticipated work readiness date: February 03, 2024 i) with restrictions: as per work capability form and within tolerances and capacities noted above Assessment: Mr. Judge continues to work according to protocol in order to reach his functional goals. He has made substantial progress towards his 3 month functional recovery goals. Please see also short term OT goals in initial note. Mr. Judge demonstrates improved positional tolerances, activity endurance, insight into their pain experience, and functional lifting capabilities. He demonstrates increased lumbar ROM, functional strength required for work, ADL, and recreation activities, in addition increased independent implementation of pacing strategies. Current limitations are related to walking for extended periods of time in addition to LE fatigue, consistent with his diagnosis of radiculopathy of the lumbar region. He will continue to benefit from consistent participation in HEP, and mindfulness activities to increase QoL outcomes and participation in meaningful occupations. Plan: Return for follow up with FRP per protocol. Length of Treatment: Mr. Judge participated in program activities from 11:00 a.m. through 2:30 p.m today. During that time, a total of 15 minutes was spent re-testing physical performance and a total of 30 minutes was spent implementing individualized occupational therapy strategies. Care was provided by Mireya Nicole OTR/L, Ryan Maloney OT/s, and Occupational TherapyAssistant, SHEREE Russell documented in this encounter Plan of Treatment Upcoming Encounters Date Type Department Care Team (Late st Contact Info) Description 05/05/2024 8:00 AM EST Office Visit Physical Therapy at [facility] [address] [place] [address] Kierra Moreno, PT [facility] PHYSICAL MEDICINE & [place] [address] 05/05/2024 9:00 AM EST Office Visit Functional Hoahaoism Program at [facility] [address] [place] [address] Mireya Nicole OT 05/19/2024 8:00 AM EST Office Visit Physical Therapy at [facility] [address] [place] [address] Kierra Moreno, PT [facility] PHYSICAL MEDICINE & [place] [address] 06/02/2024 9:00 AM EST Office Visit Physical Therapy at [facility] [address] [place] [address] Kierra Moreno, PT [facility] PHYSICAL [facility] [place] [address] documented as of this encounter Visit Diagnoses Diagnosis Radiculopathy of lumbar region Thoracic or lumbosacral neuritis or radiculitis, unspecified documented in this encounter Care Teams Fire Watchman Relationship Specialty Start Date End Date Sb Jones PA [address] [place] [address] PCP - General Internal Medicine 05/27/23 documented as of this encounter
--- OUTSIDE RECORDS SUMMARY | 2024-03-25 13:58 | XMS_ITS | Encounter Summary ---
Author Organization [facility] [place] [address] Care Team Providers Care Bottle Sorter Name Role Phone Sb Jones Primary Care Provider [phone] Reason for Visit * Consultation (Routine) - Authorized Specialty Diagnoses / Procedures Referred By Contac t Referred To Contact Orthopaedics Diagnoses Radiculopathy of lumbar region Pelvic pain in male Jennifer Vang APRN [facility] [place] [address] [facility] [address] [place] [address] Referral ID Status Reason Start Date Expiration Date Visits Requested Visits Authorized [id number] Authorized Functional Restorative Program 11/12/2023 11/11/2024 54 53 Encounter Details Date Type Department Care Team (Late st Contact Info) Description 02/07/2024 8:00 AM EDT Office Visit Functional Amish Program at [facility] [address] [place] [phone] Ludwig Schumacher Jr., PT Radiculopathy of lumbar [...] Therapy - Ludwig Schumacher Jr., PT - 02/07/2024 8:00 AM EDT FRP Follow-up Gym 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 He has been doing a lot of hiking [place] a [place]. He has joined a local gym near his house. Vadim has been able to do yard work and projects around his house w/o any flare-ups. Vadim reports his L Leg is feeling really strong. Objective: Treatment Received: Gym Date End of Program 1 Week Status Cardio 3.8 mph x 2% incline x 15' 3.8 mph x 2% incline x 15' Cliej-pe-oqweu str leg lift (x20) 80# 80# Rqmyy-wa-rvmwovlu lift (x20) 55# 55# Squat lift (x5) 65# 65# Patient Education/Home Exercise Program: Reviewed Vadim's home exercise program and reviewed the importance of continuing to establish consistent routine over time. Current barriers to home program identified at this time include finding weights to add to his home gym. He has just joined a local gymto continue with his weight machine routine. Self-Care Program Type of Exercise Specific recommendations Frequency Mindfulness/ [...] Step routine (mp3 in myDH) Warm Up [place] (mp3 in myDH) Hiking TM or Elliptical [...] (exercise) that will cause lasting change. Assessment: Vadim has maintained gains made in the P and demonstrates good understanding of his home exercise program as well as the importance of continuing stretching, strengthening, mindfulness practice and cardiovascular exercise to maintain/increase functional capacities. Goals: Maintain/increase functional capacities. Plan: Vadim will meet with Mireya Nicole OTR/L, for the [facility] follow-up in approximately one month. Vadim was encouraged to call with any questions or concerns regarding today's visit or the home exercise program. Length of visit: A total of 45 minutes was spent educating and treating Vadim and reviewing his homeexercise program. documented in this encounter Plan of Treatment Upcoming Encounters Date Type Department Care Team (Late st Contact Info) Description 05/05/2024 8:00 AM EST Office Visit Physical Therapy at [facility] [address] [place] [address] Kierra Moreno, PT [facility] PHYSICAL MEDICINE & [place] [address] 05/05/2024 9:00 AM EST Office Visit Functional Amish Program at [facility] [address] [place] [address] Mireya Nicole, OT 05/19/2024 8:00 AM EST Office Visit Physical Therapy at [facility] [address] [place] [address] Kierra Moreno, PT [facility] PHYSICAL MEDICINE & [place] [address] 06/02/2024 9:00 AM EST Office Visit Physical Therapy at [address] [place] [address] Kierra Moreno, PT [facility] PHYSICAL MEDICINE & [place] [address] documented as of this encounter Visit Diagnoses Diagnosis Radiculopathy of lumbar region Thoracic or lumbosacral neuritis or radiculitis, unspecified documented in this encounter Care Teams Bottle Sorter Relationship Specialty Start Date End Date Sb Jones PA Nay [address] [facility] [address] [place] [address] PCP - General Internal Medicine 05/27/23 documented as of this encounter
--- OUTSIDE RECORDS SUMMARY | 2024-03-25 13:58 | XMS_ITS | Encounter Summary ---
Author Organization [facility] [place] [address] Care Team Providers Care Medtronics Technician Name Role Phone Sb Jones Primary Care Provider [phone] Reason for Visit * Consultation (Routine) - Authorized Specialty Diagnoses / Procedures Referred By Contac t Referred To Contact Orthopaedics Diagnoses Radiculopathy of lumbar region Pelvic pain in male Jennifer Vang APRN [facility] [place] [address] [facility] [address] [place] [address] Referral ID Status Reason Start Date Expiration Date Visits Requested Visits Authorized [id number] Authorized Functional Restorative Program 11/12/2023 11/11/2024 54 53 Encounter Details Date Type Department Care Team (Late st Contact Info) Description 01/27/2024 8:00 AM EDT Office Visit Functional Shinto Program at [facility] [address] [place] [address] Ludwig Schumacher Jr., PT Radiculopathy of lumbar [...] Therapy - Ludwig Schumacher Jr., PT - 01/27/2024 8:00 AM EDT FRP Physical Therapy Note [facility] Day 15 Protocol Subjective: Vadim returns today for a scheduled follow up appointment with [facility]. Vadim reported continued Lower Back Tightness, but reported he is moving Better. Objectives and Treatment Received Exercises performed as [...] 2 sets to tolerance Cardio performed today: None See [facility] flowsheet for details on time held and weights completed Patient participated in all exercises. Self-Care Program Type of Exercise Specific recommendations [...] Step routine (mp3 in myDH) Warm Up [place] (mp3 in myDH) Hiking TM or Elliptical [...] that will cause lasting change. Assessment: Vadim returns for follow up visit. He was able to progress weights appropriately, while successfully maintaining form. Cues were needed intermittently for maintenance of posture during exercise and avoid compensation. He actively participated as a member of the group throughout session. Met with Vadim individually to outline a weekly schedule for self care exercise at home and in a gym setting. Discussed prescription for gym use x 3 months. Established top priority flexibility, strength, endurance exercises, and relaxation techniques to continue for watcher automat long goods gains. Established self-care Flare-up plan. Vadim understands the importance of continuing the program to meet vocational, recreational, and daily living goals. Plan: Return for follow up with FRP per protocol. Length of visit: Participated in warm-up and strengthening program from 8:00 a.m. through 11:00 a.m. today as part of group intervention with individualized cues provided. Renu Lui PTA/FREDY, present and assisting in supervision of session. 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; Be able to chop, lift and carry wood; documented in this encounter Plan of Treatment Upcoming Encounters Date Type Department Care Team (Late st Contact Info) Description 05/05/2024 8:00 AM EST Office Visit Physical Therapy at [facility] [address] [place] [address] Kierra Moreno, PT [facility] PHYSICAL MEDICINE [place] [address] 05/05/2024 9:00 AM EST Office Visit Functional Shinto Program at [facility] [address] [place] [address] Mireya Nicole, OT 05/19/2024 8:00 AM EST Office Visit Physical Therapy at [facility] [address] [place] [address] Kierra Moreno, PT [facility] PHYSICAL MEDICINE & [place] [address] 06/02/2024 9:00 AM EST Office Visit Physical Therapy at [facility] [address] [place] [address] Kierra Moreno, PT [facility] PHYSICAL MEDICINE & [place] [address] documented as of this encounter Visit Diagnoses Diagnosis Radiculopathy of lumbar region Thoracic or lumbosacral neuritis or radiculitis, unspecified documented in this encounter Care Teams Medtronics Technician Relationship Specialty Start Date End Date Sb Jones PA [address] [place] [address] PCP - General Internal Medicine 05/27/23 documented as of this encounter
--- OUTSIDE RECORDS SUMMARY | 2024-03-25 13:58 | XMS_ITS | Clinical Summary ---
Author Organization [facility] Address [facility] [place] [address] Care Team Providers Care Production Support Engineer Name Role Phone Sb Jones Primary Care Provider [phone] Allergies Active Allergy Reactions Criticality Noted Date Comments Cigarette Smoke 10/28/2020 Erythromycin Base Medium 10/28/2020 Other reaction(s): Vomiting Medications Medication Sig Dispensed Refills Start Date End Date Status acetaminophen (Tylenol) 325 mg Tablet Take 650 mg by mouth as needed. 01/08/2020 Active albuteroL 90 mcg/actuation HFA Aerosol Inhaler Inhale into the lungs every 6 hours as needed. 04/27/2019 Active cholecalciferol, Vitamin D3, 25 mcg (1,000 unit) Capsule Take 1 capsule by mouth daily. Takes 2 capsules in Winter 09/09/2015 Active tamsulosin (Flomax) 0.4 mg Capsule Take 1 capsule by mouth daily. 10/28/2020 Active MAGNESIUM ORAL Take 1 capsule by mouth daily. 02/23/2019 Active VITAMIN B COMPLEX ORAL Take 1 tablet by mouth daily. 02/23/2019 Active desvenlafaxine succinate ER (Pristiq) 50 mg ER 24 hr tablet Take 150 mg by mouth daily. 03/30/2023 Active gabapentin (Neurontin) 300 mg capsule nightly. 05/08/2023 Active Lactobacillus acidophilus 500 million cell Capsule Take 1 capsule by mouth Daily at Noon. 06/14/2023 Active UNKNOWN TO PATIENT nightly. THC tincture (oil under tongue) Active aspirin-acetaminophen- caffeine (EXCEDRIN MIGRAINE) 250-250-65 mg Tablet Take 2 tablets by mouth every 6 hours as needed for Pain. Active Desvenlafaxine succinate ER (Pristiq) 100 mg ER 24 hr tablet 12/29/2023 Ac tive levothyroxine (Synthroid) 75 mcg tablet 12/03/2023 Active Active Problems Problem Noted Date Diagnosed Date Radiculopathy of lumbar region 10/15/2022 Diverticulosis of colon without diverticulitis 0 12/30/2020 History of narcotic addiction 12/30/2020 Hypothyroidism 12/30/2020 IBS (irritable bowel syndrome) 12/30/2020 LLQ abdominal pain 12/30/2020 Low back pain 12/30/2020 Migraines 12/30/2020 Pelvic pain in male 12/30/2020 Peripheral polyneuropathy 12/30/2020 Depression 09/03/2017 Gastroesophageal reflux disease 06/29/2013 Encounters Date Type Department Care Team Description 03/05/2024 4:00 PM EDT Office Visit Functional Religion Program at [facility] [address] [place] [address] Jennifer Vang APRN Radiculopathy of lumbar region 03/05/2024 3:00 PM EDT Office Visit Functional Religion Program at [facility] [address] [place] [address] Mireya Nicole, OT Radiculopathy of lumbar region 03/05/2024 Travel 02/07/2024 8:00 AM EDT Office Visit Functional Religion Program at [facility] [address] [place] [address] Ludwig Schumacher Jr., PT Radiculopathy of lumbar region 02/07/2024 Travel 01/31/2024 10:00 AM EDT Office Visit Functional Religion Program at [facility] [address] [place] [address] Jennifer aVng APRN Radiculopathy of lumbar region (Primary Dx); Pain in testicle, unspecified laterality 01/31/2024 Travel 01/30/2024 11:00 AM EDT Office Visit Functional Religion Program at [facility] [address] [place] [address] Mireya Nicole, OT Radiculopathy of lumbar region 01/30/2024 8:00 AM EDT Office Visit Functional Religion Program at [facility] [address] [place] [address] Ludwig Schumacher Jr., PT Radiculopathy of lumbar region 01/30/2024 Travel 01/29/2024 11:00 AM EDT Office Visit Functional Religion Program at [facility] [address] [place] [address] Mireya Nicole, OT Radiculopathy of lumbar region 01/29/2024 8:00 AM EDT Office Visit Functional Religion Program at [facility] [address] [place] [address] Ludwig Schumacher Jr., PT Radiculopathy of lumbar region 01/29/2024 Travel 01/28/2024 11:00 AM EDT Office Visit Functional Religion Program at [facility] [address] [place] [address] Mireya Nicole, OT Radiculopathy of lumbar region 01/28/2024 8:00 AM EDT Office Visit Functional Religion Program at [facility] [address] [place] [address] Ludwig Schumacher Jr., PT Radiculopathy of lumbar region 01/28/2024 Travel 01/27/2024 11:00 AM EDT Office Visit Functional Religion Program at [facility] [address] [place] [address] Mireya Nicole, OT Radiculopathy of lumbar region 01/27/2024 10:00 AM EDT Office Visit Functional Religion Program at [facility] [address] [place] [address] Jennifer Vang APRN Radiculopathy of lumbar region 01/27/2024 8:00 AM EDT Office Visit Functional Religion Program at [facility] [address] [place] [address] Neo cShumacheratore Jr., PT Radiculopathy of lumbar region 01/27/2024 Travel 01/24/2024 11:00 AM EDT Office Visit Functional Religion Program at [facility] [address] [place] [facility] [address] Mireya Nicole, OT Radiculopathy of lumbar region 01/24/2024 8:00 AM EDT Office Visit Functional Religion Program at [facility] [address] [place] [address] Neo Schumacheratore Jr., PT Radiculopathy of lumbar region 01/24/2024 Travel 01/23/2024 11:00 AM EDT Office Visit Functional Religion Program at [facility] [address] [place] [address] Mireya Nicole, OT Radiculopathy of lumbar region 01/23/2024 8:00 AM EDT Office Visit Functional Religion Program at [facility] [address] [place] [address] Neo Schumacheratore Jr., PT Radiculopathy of lumbar region 01/23/2024 Travel 01/22/2024 11:00 AM EDT Office Visit Functional Religion Program at [facility] [address] [place] [address] Mireya Nicole, OT Radiculopathy of lumbar region 01/22/2024 8:00 AM EDT Office Visit Functional Religion Program at [facility] [address] [place] [address] LatashaoNeoLudwig Jr., PT Radiculopathy of lumbar region 01/22/2024 Travel 01/21/2024 11:00 AM EDT Office Visit Functional Religion Program at [facility] [address] [place] [address] Mireya Nicole, OT Radiculopathy of lumbar region 01/21/2024 8:00 AM EDT Office Visit Functional Religion Program at [facility] [address] [place] [address] Delmy Schumachere ., PT Radiculopathy of lumbar region 01/21/2024 Travel 01/20/2024 11:00 AM EDT Office Visit Functional Religion Program at [facility] [address] [place] [address] Mireya Nicole, OT Radiculopathy of lumbar region 01/20/2024 10:00 AM EDT Office Visit Functional Religion Program at [facility] [address] [place] [address] Lacey Gleason, ADMINISTRATIVE DIRECTOR Radiculopathy of lumbar region; Pelvic pain in male 01/20/2024 8:00 AM EDT Office Visit Functional Religion Program at [facility] [address] [place] [address] Ludwig Schumacher Jr., PT Radiculopathy of lumbar region 01/20/2024 Travel 01/17/2024 11:00 AM EDT Office Visit Functional Religion Program at [facility] [address] [place] [address] Mireya Nicole, OT Radiculopathy of lumbar region 01/17/2024 10:00 AM EDT Office Visit Functional Religion Program at [facility] [address] [place] [address] Lacey Glesaon, ADMINISTRATIVE DIRECTOR Radiculopathy of lumbar region; Pelvic pain in male 01/17/2024 8:00 AM EDT Office Visit Functional Religion Program at [facility] [address] [place] [address] Delmy Schumachere ., PT Radiculopathy of lumbar region 01/17/2024 Travel 01/16/2024 11:00 AM EDT Office Visit Functional Religion Program at [facility] [address] [place] [address] Mireya Nicole, OT Radiculopathy of lumbar region 01/16/2024 8:00 AM EDT Office Visit Functional Religion Program at [facility] [address] [place] [address] Ludwig Schumacher Jr., PT Radiculopathy of lumbar region 01/16/2024 Travel 01/15/2024 11:00 AM EDT Office Visit Functional Religion Program at [facility] [address] [place] [address] Mireya Nicole, OT Radiculopathy of lumbar region 01/15/2024 8:00 AM EDT Office Visit Functional Religion Program at [facility] [address] [place] [address] Ludwig Schumacher Jr., PT Radiculopathy of lumbar region 01/15/2024 Travel 01/14/2024 11:00 AM EDT Office Visit Functional Religion Program at [facility] [address] [place] [address] Mireya Nicole, OT Radiculopathy of lumbar region 01/14/2024 8:00 AM EDT Office Visit Functional Religion Program at [facility] [address] [place] [address] Ludwig Schumacher Jr., PT Radiculopathy of lumbar region 01/14/2024 Travel 01/13/2024 11:00 AM EDT Office Visit Functional Religion Program at [facility] [address] [place] [address] Mireya Nicole, OT Radiculopathy of lumbar region 01/13/2024 10:00 AM EDT Office Visit Functional Religion Program at [facility] [address] [place] [address] Jennifer Vang, ADMINISTRATIVE DIRECTOR Radiculopathy of lumbar region 01/13/2024 8:00 AM EDT Office Visit Functional Religion Program at [facility] [address] [place] [address] Ludwig Schumacher Jr., PT Radiculopathy of lumbar region 01/13/2024 Travel 01/10/2024 1:00 PM EDT Office Visit Functional Religion Program at [facility] [address] [place] [address] Jennifer Vang, ADMINISTRATIVE DIRECTOR Radiculopathy of lumbar region 01/10/2024 11:00 AM EDT Office Visit Functional Religion Program at [facility] [address] [place] [address] Mireya Nicole, OT Radiculopathy of lumbar region 01/10/2024 9:00 AM EDT Office Visit Functional Religion Program at [facility] [address] [place] [address] Jennifer aVng, ADMINISTRATIVE DIRECTOR Radiculopathy of lumbar region 01/10/2024 8:00 AM EDT Office Visit Functional Religion Program at [facility] [address] [place] [address] Ludwig Schumacher Jr., PT Radiculopathy of lumbar region 01/10/2024 Travel 01/09/2024 11:00 AM EDT Office Visit Functional Religion Program at [facility] [address] [place] [address] Mireya Nicole, OT Radiculopathy of lumbar region 01/09/2024 8:00 AM EDT Office Visit Functional Religion Program at [facility] [address] [place] [address] Ludwig Schumacher Jr., PT Radiculopathy of lumbar region 01/09/2024 Travel 01/08/2024 11:00 AM EDT Office Visit Functional Religion Program at [facility] [address] [place] [address] Mireya Nicole, OT Radiculopathy of lumbar region 01/08/2024 8:45 AM EDT Office Visit Functional Religion Program at [facility] [address] [place] [address] Lacey Gleason, ADMINISTRATIVE DIRECTOR Radiculopathy of lumbar region; Pelvic pain in male 01/08/2024 8:00 AM EDT Office Visit Functional Religion Program at [facility] [address] [place] [address] Ludwig Schumacher Jr., PT Radiculopathy of lumbar region 01/08/2024 Travel 01/07/2024 10:15 AM EDT Office Visit Functional Religion Program at [facility] [address] [place] [address] Mireya Nicole, OT Radiculopathy of lumbar region 01/07/2024 9:30 AM EDT Office Visit Functional Religion Program at [facility] [address] [place] [address] Ludwig Schumacher Jr., PT Radiculopathy of lumbar region 01/07/2024 8:45 AM EDT Office Visit Functional Religion Program at [facility] [address] [place] [address] Lacey Gleason APRN Radiculopathy of lumbar region 01/07/2024 Travel 01/06/2024 2:00 PM EDT Office Visit [facility] [place] [address] Lacey Gleason APRN Radiculopathy of lumbar region; Pelvic pain in male 01/06/2024 Telephone [facility] [place] [address] Lacey Gleason APRN from Last 3 Months Social History Tobacco Use Types Packs/Day Years Used Date Smoking Tobacco: Former Cigarettes Q uit: 2008 Smokeless Tobacco: Never Tobacco Cessation:Counseling Given: Not Answered Alcohol Use Standard Drinks/Week Comments Not Currently 0 (1 standard drink = 0.6 oz pur e alcohol) Sex and Gender Information Value Date Recorded Sex Assigned at Not on file Gender Identity Not on file Sexual Orientation Not on file Last Filed Vital Signs Vital Sign Reading Time Taken Comments Blood Pressure 138/92 01/07/2024 9:33 AM EDT Pulse 61 01/07/2024 9:33 AM EDT Temperature - - Respiratory Rate - - Oxygen Saturation 99% 10/21/2023 9:40 AM EDT Inhaled Oxygen Concentration - - Weight 104.3 kg (230 lb) 11/12/2023 9:51 AM EDT Height 182.9 cm (6') 11/12/2023 9:51 AM EDT Body Mass Index 31.19 11/12/2023 9:51 AM EDT Plan of Treatment Upcoming Encounters Date Type Department Care Team (Late st Contact Info) Description 05/05/2024 8:00 AM EST Office Visit Physical Therapy at [facility] [address] [place] [address] Kierra Moreno, PT [facility] PHYSICAL MEDICINE [place] [address] 05/05/2024 9:00 AM EST Office Visit Functional Religion Program at [facility] [address] [place] [address] Mireya Nicole, OT 05/19/2024 8:00 AM EST Office Visit Physical Therapy at [facility] [address] [place] [address] Kierra Moreno, PT [facility] [address] 06/02/2024 9:00 AM EST Office Visit Physical Therapy at [facility] [address] [place] [address] Kierra Moreno, PT [facility] PHYSICAL MEDICINE & [place] [address] Health Maintenance Due Date Last Done Comments CT Colonography 1971 Colonoscopy 1971 Colorectal Cancer Screening 1971 FIT DNA 1971 FIT 1971 Sigmoidoscopy (10 year) with FIT yearly 1971 Sigmoidoscopy 1971 HIV screen 1989 Hepatitis C Screening 1989 Lipid Screening 1989 Hepatitis B vaccine (0-59 yrs) (1) 1990 Tetanus/Diphtheria/Pertussis Vaccines (1 - Tdap) 03/20 Diabetes Screening (HgbA1C or Glucose) 2011 Zoster vaccine (1 of 2) 2021 Covid-19 Vaccine ( - season) 2024 Influenza (Flu) vaccine (1 o f 1 - Influenza standard series) 02/16/2024 Care Teams Production Support Engineer Relationship Specialty Start Date End Date Sb Jones PA [address] [place] [address] PCP - General Internal Medicine 05/27/23
--- OUTSIDE RECORDS SUMMARY | 2024-03-25 13:58 | XMS_ITS | Encounter Summary ---
Author Organization [facility] [place] [address] Care Team Providers Care Car Hopper Name Role Phone Sb Jones Primary Care Provider [phone] Reason for Visit * Consultation (Routine) - Authorized Specialty Diagnoses / Procedures Referred By Contac t Referred To Contact Orthopaedics Diagnoses Radiculopathy of lumbar region Pelvic pain in male Jennifer Vang APRN [facility] [place] [address] [facility] [address] [place] [address] Referral ID Status Reason Start Date Expiration Date Visits Requested Visits Authorized [id number] Authorized Functional Restorative Program 11/12/2023 11/11/2024 54 [phone] Encounter Details Date Type Department Care Team (Late st Contact Info) Description 01/29/2024 8:00 AM EDT Office Visit Functional Sikhism Program at [facility] [address] [place] [address] Ludwig Schumacher Jr., PT Radiculopathy of lumbar [...] Therapy - Ludwig Schumacher Jr., PT - 01/29/2024 8:00 AM EDT P Physical Therapy Note [facility] Day Protocol Subjective: Vadim returns today for a scheduled follow up appointment with [facility]. Vadim reported Lower Back Stiffness, but is feeling Good. Objectives and Treatment Received Exercises performed [...] 2 sets to tolerance Cardio performed today: 10 Mins Elliptical See [facility] flowsheet for details on time held and weights completed Patient participated in all exercises. Assessment: Vadim returns for follow up visit. He was able to progress weights appropriately, while successfully maintaining form. Cues were needed intermittently for maintenance of posture during exercise and avoid compensation. He actively participated as a member of the group throughout session. Plan: Return for follow up with [facility] per protocol. 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; Be able to chop, lift and carry wood; documented in this encounter Plan of Treatment Upcoming Encounters Date Type Department Care Team (Late st Contact Info) Description 05/05/2024 8:00 AM EST Office Visit Physical Therapy at [facility] [address] [place] [address] Kierra Moreno, PT [facility] PHYSICAL MEDICINE & [place] [address] 05/05/2024 9:00 AM EST Office Visit Functional Sikhism Program at [facility] [address] [place] [address] Mireya Nicole, OT 05/19/2024 8:00 AM EST Office Visit Physical Therapy at [facility] [address] [place] [address] Kierra Moreno, PT [facility] PHYSICAL MEDICINE & [place] [address] 06/02/2024 9:00 AM EST Office Visit Physical Therapy at [facility] [address] [place] [address] Kierra Moreno, PT [facility] PHYSICAL MEDICINE & [place] [address] documented as of this encounter Visit Diagnoses Diagnosis Radiculopathy of lumbar region Thoracic or lumbosacral neuritis or radiculitis, unspecified documented in this encounter Care Teams Car Hopper Relationship Specialty Start Date End Date Sb Jones PA [address] [place] [address] PCP - General Internal Medicine 05/27/23 documented as of this encounter
--- OUTSIDE RECORDS SUMMARY | 2024-03-25 13:58 | XMS_ITS | Encounter Summary ---
Author Organization [facility] Address [facility] [place] [address] Care Team Providers Care Terry Cloth Cutter Hand Name Role Phone Sb Jones Primary Care Provider Encounter Details Date Type Department Care Team (Latest Contact Info) Description 01/29/2024 Travel Social History Tobacco Use Types Packs/Day [...] AM EST Office Visit Physical Therapy at [facility] [address] [place] [address] Kierra Moreno, PT [facility] PHYSICAL MEDICINE & [place] [address] 05/05/2024 9:00 AM EST Office Visit Functional Voodoo Program at [facility] [address] [place] [address] Mireya Nicole, OT 05/19/2024 8:00 AM EST Office Visit Physical Therapy at [facility] [address] [place] [address] Kierra Moreno, PT [facility] PHYSICAL MEDICINE & [place] [address] 06/02/2024 9:00 AM EST Office Visit Physical Therapy at [facility] [address] [place] [address] Kierra Moreno, PT [facility] PHYSICAL MEDICINE & [place] [address] documented as of this encounter Visit Diagnoses Not on filedocumented in this encounter Care Teams Terry Cloth Cutter Hand Relationship Specialty Start Date End Date Sb Jones PA [address] [facility] [address] [place] [address] PCP - General Internal Medicine 05/27/23 documented as of this encounter
--- OUTSIDE RECORDS SUMMARY | 2024-03-25 13:58 | XMS_ITS | Encounter Summary ---
Author Organization [facility] [place] [address] Care Team Providers Care Adzing And Boring Machine Helper Name Role Phone Sb Jones Primary Care Provider [phone] Reason for Visit * Consultation (Routine) - Authorized Specialty Diagnoses / Procedures Referred By Contac t Referred To Contact Orthopaedics Diagnoses Radiculopathy of lumbar region Pelvic pain in male Jennifer Vang APRN [facility] [address] [place] [address] [facility] [address] [place] [address] Referral ID Status Reason Start Date Expiration Date Visits Requested Visits Authorized [id number] Authorized Functional Restorative Program 11/12/2023 11/11/2024 54 53 Encounter Details Date Type Department Care Team (Late st Contact Info) Description 01/30/2024 8:00 AM EDT Office Visit Functional Christian Program at [facility] [address] [place] [address] Ludwig Schumacher Jr., PT Radiculopathy of lumbar [...] as of this encounter Progress Notes * Ludwig Schumacher Jr., PT - 01/30/2024 8:00 AM EDT FRP Physical Therapy Note FRP Day 18 Protocol Subjective: Vadim returns today for a scheduled follow up appointment with [facility] and reports current functional tolerances as listed below. Vadim reports feeling stronger and more confident with movement. Objective: Title Endurance and Flexibility Test Results: Reported [...] radiating up to back (hands) calf fatigue Sensation: Light touch intact B/L UE & LE. Reflexes Right Left Tricep normal normal Brachioradialis normal normal Patella normal normal Achilles normal normal AROM (degrees) shoulder flexion right 180, left 180. UE Strength Right Left Shoulder abduction 5/5 5/5 Shoulder ER 5/5 5/5 Elbow flexion 5/5 5/5 Elbow extension 5/5 5/5 Wrist ulnar deviation 5/5 5/5 Finger abduction 5/5 5/5 LE Strength Right Left Hip flexion 5/5 5/5 Knee extension 5/5 5/5 Dorsiflexion 5/5 5/5 Hallux extension 5/5 5/5 Plantarflexion 5/5 5/5 Neural tension screening: Seated straight leg raise right Negative, left Negative. Treatment Received: Refer to [facility] protocol for explanation of program/physical therapy details. 1. Therapeutic and Functional Exercise: See FRP flow sheets for progression. Strengthening and conditioning designed per [facility] protocol was: (x) Completed ( ) Not completed 2. Home Exercise Program: Reviewed and modified current home exercise program. The HEP was: (x) Unchanged ( ) Modified 3. Neurological Assessment: (x) No change in status ( ) Change in status 4. Stretching Training Sessions: (x) Completed ( ) Not completed Evaluation of progress during FRP and discharge planning: Participation level was consistent and high. Self-Care Program Type of Exercise Specific recommendations [...] Step routine (mp3 in [facility]) Warm Up [place] (mp3 in [facility]) Hiking TM or Elliptical Kayaking 3-7x/wk For [...] will cause lasting change. Assessment: Vadim has progressed as planned; he has good understanding of his home exercise program.Vadim has made significant progress overall, more notably with physical capacity, tolerance of positions, and lumbar AROM. His continued confidence and utilization of exercise will allow for continuedreduction in symptoms in the future. We will follow-up in 1 week to discuss integration of routine and answer any questions he has after cessation of program. Plan: Continue per FRP protocol. Length of visit: Participated in program physical activity from 8:00 a.m. through 2:30 p.m. today. During that time, 15 minutes were spent to re-test physical performance measures and 30 were spent to treat and further develop individual self-care exercise guidelines. Care was provided by OLYA Juarez Jr.T and Renu Lui PTA. documented in this encounter Plan of Treatment Upcoming Encounters Date Type Department Care Team (Late st Contact Info) Description 05/05/2024 8:00 AM EST Office Visit Physical Therapy at [facility] [address] [place] [address] Kierra Moreno, PT [facility] PHYSICAL MEDICINE & [place] [address] 05/05/2024 9:00 AM EST Office Visit Functional Christian Program at [facility] [address] [place] [address] Mireya Nicole, OT 05/19/2024 8:00 AM EST Office Visit Physical Therapy at [facility] [address] [place] [address] Kierra Moreno, PT [facility] PHYSICAL BENY & [place] [address] 06/02/2024 9:00 AM EST Office Visit Physical Therapy at [facility] [address] [place] [address] Kierra Moreno, PT [facility] PHYSICAL BENY & [place] [address] documented as of this encounter Visit Diagnoses Diagnosis Radiculopathy of lumbar region Thoracic or lumbosacral neuritis or radiculitis, unspecified documented in this encounter Care Teams Adzing And Boring Machine Helper Relationship Specialty Start Date End Date Sb Jones PA [address] [address] PCP - General Internal Medicine 05/27/23 documented as of this encounter
--- OUTSIDE RECORDS SUMMARY | 2024-03-25 13:58 | XMS_ITS | Encounter Summary ---
Author Organization [facility] [place] [address] Care Team Providers Care Marketing Services Rep Name Role Phone Sb Jones Primary Care Provider [phone] Reason for Visit * Consultation (Routine) - Authorized Specialty Diagnoses / Procedures Referred By Contac t Referred To Contact Orthopaedics Diagnoses Radiculopathy of lumbar region Pelvic pain in male Jennifer Vang APRN [facility] [place] [address] [facility] [address] [place] [address] Referral ID Status Reason Start Date Expiration Date Visits Requested Visits Authorized [id number] Authorized Functional Restorative Program 11/12/2023 11/11/2024 54 53 Encounter Details Date Type Department Care Team (Late st Contact Info) Description 01/28/2024 8:00 AM EDT Office Visit Functional Taoist Program at [facility] [address] [place] [address] Ludwig Schumacher Jr., PT Radiculopathy of lumbar [...] Therapy - Ludwig Schumacher Jr., PT - 01/28/2024 8:00 AM EDT FRP Physical Therapy Note [facility] Day 16 Protocol Subjective: Vadim returns today for a scheduled follow up appointment with [facility]. Vadim stated his lower back is feeling good this morning. Objectives and Treatment Received Exercises performed as a group of 6 with guidance and individualized cues for form. 30 Minutes Standing Step Exercises Toe Taps Heel Taps Step Up - R foot lead Step Up - L foot lead Side Step - R Side Step - L Step Up and Knee Lift - R Step Up and Knee Lift - L Step Up and Over Forward Bending Back Bending Chin Tuck Neck Extensions 30 Minutes Exercise Ball (2 x 20 each) Seated Spine Flexion/Extension Seated Alt Arm Raises Seated March Wall Push Ups Wall Squats Supine Lower Trunk Rotation Supine Crunches Press Ups Dumbbells - Bicep curls, shoulder raises to 90 degrees of flexion, straight leg deadlift, and pronereverse flies on plinth. 2x10 reps for each Weight Machines - Lat pull downs, single arm seated row, leg press, chest press, knee extensions, and back extensions. 2x10 reps for each Gui chair back extensions 2 sets to tolerance Cardio performed today: N/A See [facility] flowsheet for details on time held and weights completed Patient participated in all exercises. Assessment: Vadim returns for follow up visit. He was able to progress weights appropriately, while successfully maintaining form. Cues were needed intermittently for maintenance of posture during exercise and avoid compensation. He actively participated as a member of the group throughout session. Plan: Return for follow up with [facility] per protocol. Length of visit: Participated [...] the [place] ; be able to travel ([place]) including [...] transferring clothes to dryer; unload and load spring former machine; Be able to chop, lift and carry wood; documented in this encounter Plan of Treatment Upcoming Encounters Date Type Department Care Team (Late st Contact Info) Description 05/05/2024 8:00 AM EST Office Visit Physical Therapy at [facility] [address] [place] [address] Kierra Moreno, PT [facility] PHYSICAL MEDICINE & [place] [address] 05/05/2024 9:00 AM EST Office Visit Functional Taoist Program at [facility] [address] [place] [address] Mireya Nicole, OT 05/19/2024 8:00 AM EST Office Visit Physical Therapy at [facility] [address] [place] [address] Kierra Moreno, PT [facility] PHYSICAL MEDICINE & [place] [address] 06/02/2024 9:00 AM EST Office Visit Physical Therapy at [facility] [address] [place] [address] Kierra Moreno, PT [facility] PHYSICAL MEDICINE & [place] [address] documented as of this encounter Visit Diagnoses Diagnosis Radiculopathy of lumbar region Thoracic or lumbosacral neuritis or radiculitis, unspecified documented in this encounter Care Teams Marketing Services Rep Relationship Specialty Start Date End Date Sb Jones PA [address] [place] [address] PCP - General Internal Medicine 05/27/23 documented as of this encounter
--- OUTSIDE RECORDS SUMMARY | 2024-03-25 13:59 | XMS_ITS | Encounter Summary ---
Author Organization [facility] [place] [address] Care Team Providers Care Reverse Engineer Name Role Phone Sb Jones Primary Care Provider [phone] Reason for Visit * Reason Comments Back Pain * Consultation (Routine) - Authorized Specialty Diagnoses / Procedures Referred By Contac t Referred To Contact Orthopaedics Diagnoses Radiculopathy of lumbar region Pelvic pain in male Jennifer Vang APRN [facility] [address] [facility] [address] [place] [address] Referral ID Status Reason Start Date Expiration Date Visits Requested Visits Authorized [id number] Authorized Functional Restorative Program 11/12/2023 11/11/2024 54 53 Encounter Details Date Type Department Care Team (Latest Contact Info) Description 01/22/2024 11:00 AM EDT Office Visit Functional Scientologist Program at [facility] [address] [place] [address] Mireya Nicole, OT Radiculopathy of lumbar region [...] Treatment - Therapy - Kenyatta Maloney - 01/22/2024 11:00 AM EDT I was present throughout today's treatment/evaluation of the patient with my student participating.Following treatment I've reviewed, discussed and provided feedback to my occupational therapy student in which updates to the note were made. I concur with the note as written and recommend continuing treatment per Plan of Care as written. Mireya Nicole, OTR/L FRP Occupational Therapy Note FRP Day 12 Protocol Subjective: Mr. Judge returns today for a scheduled follow up appointment with [facility]. He reports experiencing an increase in lower back and LLE pain and weakness. He expressed the mat strengthening exercises to be additionally challenging this morning, and discouraging to his overall progress. expressed that it is challenging to not compare himself with what they previously could manage (physical demands) or where they think they should be. Objective: Refer to [facility] protocol for details and explanation of each activity. Mr. Judge participated in the following activities: See individual flow sheets for weight progressions. Functional Therapy: 1. AM Session of functional conditioning ( X ) Completed ( ) Not Completed Participated in a 30 minute 1m outdoor walk including going up/down a flight of stairs, slight incline, instructed in three minutes of grounding mindfulness practice, focusing on their senses. 2. PM Session of functional conditioning ( X ) Completed ( ) Not Completed Exercises reviewed are as follows: - Crate Carry for 5 Minutes or 1 Handed Bucket carry 10 minutes - Push/Pull - x10 reps - Weighted Vacuum - x20 reps - PEGS 4 minutes/ 0 -Wall Clock- x10 reps Functional Crate Lifting: - Floor to Waist (straight- leg lifting) = 2 x 10 reps - Waist to Shoulder = 2x10 reps - Occasional Lift (Squat Lift) = 1 x 5 reps Instructed in 10 minutes of mindfulness meditation activity focusing on silent meditation techniques. Participated in 10 minutes of unguarded beach ball volley ball activity. Individualized Treatment: Increased resistance levels of functional conditioning exercises according to personal recovery goals. Continued to monitor form with heavier lifting to ensure good body mechanics, safety and efficiency. Self-Care Discussion: Your Amazing Protectometer Discussion around applying Pain Neuroscience Education (PNE), the concepts of an over-sensitive alarm, the role of threat perception, and the biopsychosocial model of chronic pain to their own experience. Today's topic focused on the Explain Pain approach of evaluating the context of a person's pain that can contribute to experiencing pain or not (e.g., Danger in Me v. Safety in Me). Participants watched the beginning of an educational video with Kirk Duran, PhD, Dsc (https://[email or web address] [place].com/watch?v=[email or web address]_Fs00nM) describing the brain's role in pain processing, and the ways that implicit mess ages of danger or safety determine the brain's decision whether to protect bodily tissues with pain. Participants were educated about the scientific basis of this understanding of pain. Please see goals in initial OT evaluation report from Day 1. Daily functional conditioning progressis documented on a flow sheet which is available on request. Assessment: Mr. Judge continues to work according to protocol in order to reach his functional goals. He had a good understanding of today's conditioning principles and participated actively in progression of function. He continues to struggle with participation in the Pain-avoidance and Pain-Anxiety patterns of behavior, and was encouraged to use 5-10 minutes of mindfulness practice prior to participation in program activity blocks. He demonstrates consistent participation in functional activities as physical demands increase, and implementation of counteractive stretches. He actively participated with initiation of training components. They were supportive of the other members of the group throughout the session. Plan: Return for follow up with FRP per protocol. Continue training according to planned progressions towards functional recovery goals. Length of Treatment: Mr. Judge participated in program activities from 11:00 a.m. through 3:00 p.m. today as part of group intervention [...] the [place] ; be able to travel ([place]) including walking 3-5 miles. Be able to sit in car for extended period of time. 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 and load district scout executive; Be able to chop, lift and carry wood; documented in this encounter Plan of Treatment Upcoming Encounters Date Type Department Care Team (Late st Contact Info) Description 05/05/2024 8:00 AM EST Office Visit Physical Therapy at [facility] [address] [place] [address] Kierra Moreno, PT [facility] PHYSICAL MEDICINE & [place] [address] 05/05/2024 9:00 AM EST Office Visit Functional Scientologist Program at [facility] [address] [place] [address] Mireya Nicole, OT 05/19/2024 8:00 AM EST Office Visit Physical Therapy at [facility] [address] [place] [address] Kierra Moreno, PT [facility] PHYSICAL BENY & [place] [address] 06/02/2024 9:00 AM EST Office Visit Physical Therapy at [facility] [address] [facility] [place] [address] Kierra Moreno, PT [facility] PHYSICAL MEDICINE & [place] [address] documented as of this encounter Visit Diagnoses Diagnosis Radiculopathy of lumbar region Thoracic or lumbosacral neuritis or radiculitis, unspecified documented in this encounter Care Teams Reverse Engineer Relationship Specialty Start Date End Date Sb Jones PA [address] [place] [address] PCP - General Internal Medicine 05/27/23 documented as of this encounter
--- OUTSIDE RECORDS SUMMARY | 2024-03-25 13:59 | XMS_ITS | Encounter Summary ---
Author Organization [facility] [place] [address] Care Team Providers Care Repertoire Manager Name Role Phone Sb Jones Primary Care Provider [phone] Reason for Visit * Consultation (Routine) - Authorized Specialty Diagnoses / Procedures Referred By Contac t Referred To Contact Orthopaedics Diagnoses Radiculopathy of lumbar region Pelvic pain in male Jennifer Vang APRN [facility] [place] [address] [facility] [address] [place] [address] Referral ID Status Reason Start Date Expiration Date Visits Requested Visits Authorized [id number] Authorized Functional Restorative Program 11/12/2023 11/11/2024 54 53 Encounter Details Date Type Department Care Team (Late st Contact Info) Description 01/17/2024 8:00 AM EDT Office Visit Functional Taoist Program at [facility] [address] [place] [address] Ludwig Schumacher Jr., PT Radiculopathy of lumbar [...] Miscellaneous Notes * Treatment - Therapy - Ludiwg Schumacher Jr., PT - 01/17/2024 8:00 AM EDT FRP Physical Therapy Note [facility] Day 9 Protocol Subjective: Donny returns today for a scheduled follow up appointment with [facility]. Vadim stated he is feeling lower back tightness from testing yesterday. Objectives and Treatment Received Exercises performed as a group of 7 with guidance and individualized cues for form. 30 Minutes Standing Warm Up Exercises High March Heel-kick March Squat Step Back Toe Touch Knees to Hands B Forward Lunges Side Lunges Forward Bending and Backward Bending Chin Tucks 30 Minutes Supine, Sidelying, Prone Mat Exercises (2 x 15 each) Lower trunk rotation Straight Leg Raises [...] to tolerance Cardio performed today: 10 Mins on TM See [facility] flowsheet for details on time held and weights completed Patient participated in all exercises. Assessment: Vadim returns for follow up visit. He was able to progress weights appropriately, while successfully maintaining form. Cues were needed intermittently for maintenance of posture during exercise and avoid compensation. He actively participated as a member of the group throughout session. Plan: Return for follow up with [facility] per protocol. Length of visit: Participated [...] hike, be able to kayak on the [place] ; be able to travel ([place]) including [...] clothes to dryer; unload and load sales review clerk; Be able to chop, lift and carry wood; documented in this encounter Plan of Treatment Upcoming Encounters Date Type Department Care Team (Late st Contact Info) Description 05/05/2024 8:00 AM EST Office Visit Physical Therapy at [facility] [address] [place] [address] Kierra Moreno, PT [facility] PHYSICAL MEDICINE & [place] [address] 05/05/2024 9:00 AM EST Office Visit Functional Taoist Program at [facility] [address] [place] [address] Mireya Nicole, OT 05/19/2024 8:00 AM EST Office Visit Physical Therapy at [facility] [address] [place] [address] Kierra Moreno, PT [facility] PHYSICAL MEDICINE & [place] [address] 06/02/2024 9:00 AM EST Office Visit Physical Therapy at [facility] [address] [place] [address] Kierra Moreno, PT [facility] PHYSICAL MEDICINE & [place] [address] documented as of this encounter Visit Diagnoses Diagnosis Radiculopathy of lumbar region Thoracic or lumbosacral neuritis or radiculitis, unspecified documented in this encounter Care Teams Repertoire Manager Relationship Specialty Start Date End Date Sb Jones PA [address] [place] [address] PCP - General Internal Medicine 05/27/23 documented as of this encounter
--- OUTSIDE RECORDS SUMMARY | 2024-03-25 13:59 | XMS_ITS | Encounter Summary ---
Author Organization [facility] Address [place] [address] Care Team Providers Care Director Of Construction Name Role Phone Sb Jones Primary Care Provider Encounter Details Date Type Department Care Team (Latest Contact Info) Description 01/20/2024 Travel Social History Tobacco Use Types Packs/Day [...] AM EST Office Visit Physical Therapy at [facility] [address] [place] [address] Kierra Moreno, PT [facility] PHYSICAL MEDICINE & [place] [address] 05/05/2024 9:00 AM EST Office Visit Functional Christian Program at [facility] [address] [place] [address] Mireya Nicole, OT 05/19/2024 8:00 AM EST Office Visit Physical Therapy at [facility] [address] [place] [address] Kierra Moreno, PT [facility] PHYSICAL MEDICINE & [place] [address] 06/02/2024 9:00 AM EST Office Visit Physical Therapy at [facility] [address] [place] [address] Kierra Moreno, PT [facility] PHYSICAL MEDICINE & [place] [address] documented as of this encounter Visit Diagnoses Not on filedocumented in this encounter Care Teams Director Of Construction Relationship Specialty Start Date End Date Sb Jones PA [address] [facility] [place] [address] PCP - General Internal Medicine 05/27/23 documented as of this encounter
--- OUTSIDE RECORDS SUMMARY | 2024-03-25 13:59 | XMS_ITS | Encounter Summary ---
Author Organization [facility] Address [facility] [address] Care Team Providers Care Hoop Machine Operator Name Role Phone Sb Jones Primary Care Provider Encounter Details Date Type Department Care Team (Latest Contact Info) Description 01/16/2024 Travel Social History Tobacco Use Types Packs/Day [...] AM EST Office Visit Physical Therapy at [facility] [address] [place] [address] Kierra Moreno, PT [facility] PHYSICAL MEDICINE & [place] [address] 05/05/2024 9:00 AM EST Office Visit Functional Holiness Program at [facility] [address] [place] [address] Mireya Nicole, OT 05/19/2024 8:00 AM EST Office Visit Physical Therapy at [facility] [address] [place] [address] Kierra Moreno, PT [facility] PHYSICAL MEDICINE & [place] [address] 06/02/2024 9:00 AM EST Office Visit Physical Therapy at [facility] [address] [place] [address] Kierra Moreno, PT [facility] PHYSICAL MEDICINE & [place] [address] documented as of this encounter Visit Diagnoses Not on filedocumented in this encounter Care Teams Hoop Machine Operator Relationship Specialty Start Date End Date Sb Jones PA [address] [facility] [address] [place] [address] PCP - General Internal Medicine 05/27/23 documented as of this encounter
--- OUTSIDE RECORDS SUMMARY | 2024-03-25 13:59 | XMS_ITS | Encounter Summary ---
Author Organization [facility] [place] [address] Care Team Providers Care Home Insurance Agent Name Role Phone Sb Jones Primary Care Provider [phone] Reason for Visit * Reason Comments Back Pain * Consultation (Routine) - Authorized Specialty Diagnoses / Procedures Referred By Contac t Referred To Contact Orthopaedics Diagnoses Radiculopathy of lumbar region Pelvic pain in male Jennifer Vang APRN [facility] [address] [facility] [address] [place] [address] Referral ID Status Reason Start Date Expiration Date Visits Requested Visits Authorized [id number] Authorized Functional Restorative Program 11/12/2023 11/11/2024 54 53 Encounter Details Date Type Department Care Team (Latest Contact Info) Description 01/13/2024 11:00 AM EDT Office Visit Functional Congregation Program at [facility] [address] [place] [address] Mireya Nicole, OT Radiculopathy of lumbar region [...] Treatment - Therapy - Kenyatta Maloney - 01/13/2024 11:00 AM EDT I was present throughout today's treatment/evaluation of the patient with my student participating.Following treatment I've reviewed, discussed and provided feedback to my occupational therapy student in which updates to the note were made. I concur with the note as written and recommend continuing treatment per Plan of Care as written. Mireya Nicole, OTR/L [facility] Occupational Therapy Note [facility] Day 5 Protocol Subjective: Mr. Judge returns today for a scheduled follow up appointment with [facility]. He reports experiencing some lower back ,and LE fatigue due to participation on household activities over the weekend. Mr. Judge expressed lower back pain during activities that required forward bending. Objective: Refer to [facility] protocol for details and explanation of each activity. Mr. Judge participated in the following activities: See individual flow sheets for weight progressions. Group of 7 Functional Therapy: 1. AM Session of outdoor walk and unguarded activity ( X ) Completed ( ) Not Completed Participated in a 20 minute outdoor walk for 0.6 miles including slight incline and going up/down stairs, and 15 minutes of unguarded beach ball volleyball activity. 2. PM Session of functional conditioning ( X ) Completed ( ) Not Completed Exercises reviewed are as follows: - Crate Carry for 5 Minutes or 1 Handed Bucket carry 10 minutes - Push/Pull - x10 reps - Weighted Vacuum - x20 reps - PEGS 3 minutes/ 3 - Wall Clock - x4 reps Functional Crate Lifting: - Floor to Waist (straight- leg lifting) = 2 x 10 reps - Waist to Shoulder = 2x10 reps - Occasional Lift (Squat Lift) = 1 x 5 reps Instructed in 9 minutes of mindfulness meditation activity focusing on deep breathing techniques. Individualized Treatment: Increased resistance levels of functional conditioning exercises according to personal recovery goals. Instructed in proper body mechanics for safe lifting. Monitored and instructed in proper form during functional conditioning exercises and provided cues for safety and efficiency. Weekend Home Program: Reviewed Mr. Judge's participation in assigned home exercise program over the past weekend. He reports he was able to complete his home program: Walking 20 minutes: Completed Stretching twice a day: Completed Functional lifting: Completed Mindfulness meditation: Completed Please see goals in initial OT evaluation report from Day 1. Daily functional conditioning progressis documented on a flow sheet which is available on request. Assessment: Mr. Judge continues to work according to protocol in order to reach his functional goals. He had a good understanding of today's conditioning principles and participated actively in progression of function. They demonstrate fair insight into pacing strategies, such as deep breathing t echniques during activities with increased physical demands. Challenges with lower back pain with activities that require forward bending continue, and he was provided counter active stretches to implement intermittently to increase carry over of pacing strategies for improved participation in functional activities. Mr. Judge alternated forward bend lift and shoulder level lift as a pacing strategy. He actively participated with initiation of [...] PTA/FREDY, present and assisting in supervision of session.A total of 45 minutes was spent during that time to establish and implement individualized occupational therapy strategies. Personal Function 3 Month Goals Vocational: Be able to sit for 60-90 minutes, Being able to lift carry water jug (45lbs) Recreational: Be able to hike, be able to kayak on the [place] ; be able to travel ([place]) including walking 3-5 miles. Be able to sit in car for extended period of time. 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 and load pyrotechnic mixer; Be able to chop, lift and carry wood; documented in this encounter Plan of Treatment Upcoming Encounters Date Type Department Care Team (Late st Contact Info) Description 05/05/2024 8:00 AM EST Office Visit Physical Therapy at [facility] [address] [place] [address] Kierra Moreno, PT [facility]YS[facility] [place] [address] 05/05/2024 9:00 AM EST Office Visit Functional Congregation Program at [facility] [address] [place] [address] Mireya Nicole, OT 05/19/2024 8:00 AM EST Office Visit Physical Therapy at [facility] [address] [facility] [place] [address] Kierra Moreno, PT [facility] PHYSICAL MEDICINE & [place] [address] 06/02/2024 9:00 AM EST Office Visit Physical Therapy at [facility] [address] [place] [address] Kierra Moreno, PT [facility] PHYSICAL MED[facility]INE [place] [address] documented as of this encounter Visit Diagnoses Diagnosis Radiculopathy of lumbar region Thoracic or lumbosacral neuritis or radiculitis, unspecified documented in this encounter Care Teams Home Insurance Agent Relationship Specialty Start Date End Date Sb Jones PA [address] [place] [address] PCP - General Internal Medicine 05/27/23 documented as of this encounter
--- OUTSIDE RECORDS SUMMARY | 2024-03-25 13:59 | XMS_ITS | Encounter Summary ---
Author Organization [facility] [place] [address] Care Team Providers Care Hop Picker Name Role Phone Sb Jones Primary Care Provider [phone] Reason for Visit * Reason Comments Back Pain * Consultation (Routine) - Authorized Specialty Diagnoses / Procedures Referred By Contac t Referred To Contact Orthopaedics Diagnoses Radiculopathy of lumbar region Pelvic pain in male Jennifer Vang APRN [facility] [place] [address] [facility] [address] [place] [address] Referral ID Status Reason Start Date Expiration Date Visits Requested Visits Authorized [id number] Authorized Functional Restorative Program 11/12/2023 11/11/2024 54 53 Encounter Details Date Type Department Care Team (Latest Contact Info) Description 01/23/2024 11:00 AM EDT Office Visit Functional Sikhism Program at [facility] [address] [place] [phone] Mireya Nicole, OT Radiculopathy of lumbar region [...] Treatment - Therapy - Kenyatta Maloney - 01/23/2024 11:00 AM EDT I was present throughout today's treatment/evaluation of the patient with my student participating.Following treatment I've reviewed, discussed and provided feedback to my occupational therapy student in which updates to the note were made. I concur with the note as written and recommend continuing treatment per Plan of Care as written. Mireya Nicole, OTR/L [facility] Occupational Therapy Note [facility] Day 13 Protocol Subjective: Mr. Judge returns today for a scheduled follow up appointment with [facility]. He reports feeling better this morning compared to yesterday, and is motivated to continue through the program. Objective: Refer to [facility] protocol for details and explanation of each [...] Twist x20 reps - Wall Clock - x6 reps Functional Crate Lifting: - Floor to [...] reps - Weighted Vacuum - x20 reps Functional Crate Lifting: - Floor to Waist (straight- leg lifting) = 2 x 10 reps - Waist to Shoulder = 2x10 reps - Occasional Lift (Squat Lift) = 1 x 5 reps Instructed in 13 minutes of mindfulness meditation activity focusing on body scan techniques. Participated in 20 minutes of unguarded beach ball volley ball activity. Individualized Treatment: Increased resistance levels of functional conditioning exercises according to personal recovery goals. Continued to monitor form with heavier lifting to ensure good body mechanics, safety and efficiency. Self-Care Discussion: Participated in a group discussion surrounding principles introduced in Pain Neuroscience video, specifically with identifying triggers and supports to their chronic pain experience. Collaborated with group members and clinicians to identify Danger In Me (DIM) and Safety In Me (SIM) related to their chronic pain experience and pain management tool box. Educated on the importance of recognizing triggers to their pain dial, participation level(s) in meaningful activities, and identity beyond the pain Please see goals in initial OT evaluation report from Day 1. Daily functional conditioning progressis documented on a flow sheet which is available on request. Assessment: Mr. Judge continues to work according to protocol in order to reach his functional goals. He had a good understanding of today's conditioning principles and participated actively in progression of function. Mr. Judge participated in group self-care discussion, and was able to independently identify their DIM and Martinez in relation to the pain management experience. They demonstrate independent implementation of pacing strategies and energy conservation techniques to improve participation in functional activities as physical demands increase. Mr. Judge demonstrates improved positional tolerance during group discussions and unguarded activities, in addition to increased frequency of forward bends for unguarded activity demands. He actively participated with initiation of training [...] the [place] ; be able to travel ([place]) including walking 3-5 miles. Be able to sit in car for extended period of time. 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 and load timber skidder; Be able to chop, lift and carry wood; documented in this encounter Plan of Treatment Upcoming Encounters Date Type Department Care Team (Late st Contact Info) Description 05/05/2024 8:00 AM EST Office Visit Physical Therapy at [facility] [address] [place] [address] Kierra Moreno, PT [facility]YSICAL [place] [address] 05/05/2024 9:00 AM EST Office Visit Functional Sikhism Program at [facility] [address] [place] [address] Mireya Nicole, OT 05/19/2024 8:00 AM EST Office Visit Physical Therapy at [facility] [address] [place] [address] Kierra Moreno, PT [facility] PHYSICAL MED[facility]INE [place] [address] 06/02/2024 9:00 AM EST Office Visit Physical Therapy at [facility] [address] [place] [address] Kierra Moreno, PT [facility] PHYSICAL [place] [place] [address] documented as of this encounter Visit Diagnoses Diagnosis Radiculopathy of lumbar region Thoracic or lumbosacral neuritis or radiculitis, unspecified documented in this encounter Care Teams Hop Picker Relationship Specialty Start Date End Date Sb Jones PA [address] [place] [address] PCP - General Internal Medicine 05/27/23 documented as of this encounter
--- OUTSIDE RECORDS SUMMARY | 2024-03-25 13:59 | XMS_ITS | Encounter Summary ---
Author Organization [facility] [place] [address] Care Team Providers Care Armor Reconnaissance Vehicle Driver Name Role Phone Sb Jones Primary Care Provider [phone] Encounter Details Date Type Department Care Team (Latest Contact Info) Description 01/22/2024 Travel Social History Tobacco Use Types Packs/Day [...] at [facility] [address] [place] [address] Kierra Moreno, PT [facility] PHYSICAL MEDICINE & [place] [address] 05/05/2024 9:00 AM EST Office Visit Functional Zoroastrianism Program at [facility] [address] [place] [address] Mireya Nicole, OT 05/19/2024 8:00 AM EST Office Visit Physical Therapy at [facility] [address] [place] [address] Kierra Moreno, PT [facility] PHYSICAL MEDICINE & [place] [address] 06/02/2024 9:00 AM EST Office Visit Physical Therapy at [facility] [address] [place] [address] Kierra Moreno, PT [facility] PHYSICAL MEDICINE & [place] [address] documented as of this encounter Visit Diagnoses Not on filedocumented in this encounter Care Teams Armor Reconnaissance Vehicle Driver Relationship Specialty Start Date End Date Sb Jones PA [address] [facility] [address] [place] [address] PCP - General Internal Medicine 05/27/23 documented as of this encounter
--- OUTSIDE RECORDS SUMMARY | 2024-03-25 13:59 | XMS_ITS | Encounter Summary ---
Author Organization [facility] [place] [address] Care Team Providers Care Performance Architect Name Role Phone Sb Jones Primary Care Provider [phone] Reason for Visit * Reason Comments Back Pain * Consultation (Routine) - Authorized Specialty Diagnoses / Procedures Referred By Contac t Referred To Contact Orthopaedics Diagnoses Radiculopathy of lumbar region Pelvic pain in male Jennifer Vang APRN [facility] [place] [address] [facility] [address] [place] [address] Referral ID Status Reason Start Date Expiration Date Visits Requested Visits Authorized [id number] Authorized Functional Restorative Program 11/12/2023 11/11/2024 54 53 Encounter Details Date Type Department Care Team (Latest Contact Info) Description 01/20/2024 11:00 AM EDT Office Visit Functional Evangelical Program at [facility] [address] [place] [address] Mireya Nicole, OT Radiculopathy of lumbar region [...] Treatment - Therapy - Kenyatta Maloney - 01/20/2024 11:00 AM EDT I was present throughout today's treatment/evaluation of the patient with my student participating.Following treatment I've reviewed, discussed and provided feedback to my occupational therapy student in which updates to the note were made. I concur with the note as written and recommend continuing treatment per Plan of Care as written. Mireya Nicole, OTR/L [facility] Occupational Therapy Note [facility] Day 10 Protocol Subjective: Mr. Judge returns today for a scheduled follow up appointment with [facility]. He reports being able to lift and transport 50lb boxes over the weekend which he felt good about, however expressed walking at an incline with his over the weekend to still be a challenge. He expressed upperback pain following bucket carry exercise. Objective: Refer to [facility] protocol for details and explanation of each activity. Mr. Judge participated in the following activities: See individual flow sheets for weight progressions. Functional Therapy: 1. AM Session of outdoor walk and unguarded activity ( X ) Completed ( ) Not Completed Participated in a 30 minute outdoor walk including going up/down a flight of stairs, hills, and slight incline for 1.06m and 10 minutes of unguarded beach ball volley ball activity. 2. PM Session of functional conditioning ( X ) Completed ( ) Not Completed Exercises reviewed are as follows: - Crate Carry for 5 Minutes or 1 Handed Bucket carry 10 minutes - Push/Pull - x10 reps - Weighted Vacuum - x20 reps - PEGS 4 minutes/ 0 - Wall Clock - x4 reps Functional Crate Lifting: - Floor to Waist (straight- leg lifting) = 2 x 10 reps - Waist to Shoulder = 2x10 reps - Occasional Lift (Squat Lift) = 1 x 5 reps Instructed in 16 minutes of mindfulness meditation activity focusing on progressive muscle relaxation techniques. Individualized Treatment: Increased resistance levels [...] actively in progression of function. He demonstrates improved walking tolerance during morning walk activity. Theydemonstrate good carry over of pacing strategies such as counteractive stretches and breaking up task demands. He actively participated with initiation of training components. They were supportive ofthe other members of the group throughout the session. Plan: Return for follow up with [facility] per protocol. Continue training according to planned progressions towards functional recovery goals. Length of Treatment: Mr. Judge participated in program activities from 11:00 a.m. through 2:40 p.m. today as part of group intervention [...] hike, be able to kayak on the [place] ; be able to travel ([place]) including walking 3-5 miles. Be able to sit in car for extended period of time. 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 and load property claims manager; Be able to chop, lift and carry wood; documented in this encounter Plan of Treatment Upcoming Encounters Date Type Department Care Team (Late st Contact Info) Description 05/05/2024 8:00 AM EST Office Visit Physical Therapy at [facility] [address] [place] [address] Kierra Moreno, PT [facility] PHYSICAL MEDICINE [place] [address] 05/05/2024 9:00 AM EST Office Visit Functional Evangelical Program at [facility] [address] [place] [address] Mireya Nicole, OT 05/19/2024 8:00 AM EST Office Visit Physical Therapy at [facility] [address] [place] [address] Kierra Moreno, PT [facility] PHYSICAL [place] [address] 06/02/2024 9:00 AM EST Office Visit Physical Therapy at [facility] [address] [place] [address] Kierra Moreno, PT [facility] PHYSICAL MEDICINE & [place] [address] documented as of this encounter Visit Diagnoses Diagnosis Radiculopathy of lumbar region Thoracic or lumbosacral neuritis or radiculitis, unspecified documented in this encounter Care Teams Performance Architect Relationship Specialty Start Date End Date Sb Jones PA [address] [place] [address] PCP - General Internal Medicine 05/27/23 documented as of this encounter
--- OUTSIDE RECORDS SUMMARY | 2024-03-25 13:59 | XMS_ITS | Encounter Summary ---
Author Organization [facility] [place] [address] Care Team Providers Care Revenue Investigator Name Role Phone Sb Jones Primary Care Provider [phone] Reason for Visit * Consultation (Routine) - Authorized Specialty Diagnoses / Procedures Referred By Contac t Referred To Contact Orthopaedics Diagnoses Radiculopathy of lumbar region Pelvic pain in male Jennifer Vang APRN [facility] [place] [address] [facility] [address] [place] [address] Referral ID Status Reason Start Date Expiration Date Visits Requested Visits Authorized [id number] Authorized Functional Restorative Program 11/12/2023 11/11/2024 54 53 Encounter Details Date Type Department Care Team (Late st Contact Info) Description 01/10/2024 8:00 AM EDT Office Visit Functional Congregation Program at [facility] [address] [place] [address] Ludwig Schumacher Jr., PT Radiculopathy of lumbar [...] Therapy - Ludwig Schumacher Jr., PT - 01/10/2024 8:00 AM EDT [facility] Physical Therapy Note [facility] Day 4 Protocol Subjective: Vadim returns today for a scheduled follow up appointment with [facility]. Vadim stated he is feeling a lot of muscle soreness. Objectives and Treatment Received Exercises performed as a group of 7 with guidance and individualized cues for form. 30 Minutes Standing Warm Up Exercises High March Heel-kick March Squat Step Back Toe Touch Knees to Hands B Forward Lunges Side Lunges Forward Bending and Backward Bending Chin Tucks 30 Minutes Supine, Sidelying, Prone Mat Exercises (2 x 10 each) Lower trunk rotation Straight Leg Raises [...] to tolerance Cardio performed today: N/A See [facility] flowsheet for details on time held and weights completed Patient participated in all exercises. Assessment: Vadim returns for follow up visit. He was able to progress weights appropriately, while successfully maintaining form. Cues were needed intermittently for maintenance of posture during exercise and avoid compensation. He actively participated as a member of the group throughout session. Plan: Return for follow up with [facility] per protocol. Length of visit: Participated in warm-up and strengthening program from 8:00 a.m. through 12:00 a.m. today as part of group intervention with individualized cues provided. Renu Lui PTA/FREDY, present and assisting in supervision of session. Personal Function 3 Month Goals Vocational: None identified: flexible schedule, able to take stretch breaks, has a sit stand desk Recreational: Be able to hike, be able to kayak on the [place] ; be able to travel ([place]) including [...] transferring clothes to dryer; unload and load tow feeder; Be able to chop, lift and carry wood; documented in this encounter Plan of Treatment Upcoming Encounters Date Type Department Care Team (Late st Contact Info) Description 05/05/2024 8:00 AM EST Office Visit Physical Therapy at [facility] [address] [place] [address] Kierra Moreno, PT [facility] PHYSICAL MEDICINE & [place] [address] 05/05/2024 9:00 AM EST Office Visit Functional Congregation Program at [facility] [address] [place] [address] Mireya Nicole, OT 05/19/2024 8:00 AM EST Office Visit Physical Therapy at [facility] [address] [place] [address] Kierra Moreno, PT [facility] PHYSICAL MEDICINE & [place] [address] 06/02/2024 9:00 AM EST Office Visit Physical Therapy at [facility] [address] [place] [address] Kierra Moreno, PT [facility] PHYSICAL MEDICINE & [place] [address] documented as of this encounter Visit Diagnoses Diagnosis Radiculopathy of lumbar region Thoracic or lumbosacral neuritis or radiculitis, unspecified documented in this encounter Care Teams Revenue Investigator Relationship Specialty Start Date End Date Sb Jones PA [address] [place] [address] PCP - General Internal Medicine 05/27/23 documented as of this encounter
--- OUTSIDE RECORDS SUMMARY | 2024-03-25 13:59 | XMS_ITS | Encounter Summary ---
Author Organization [facility] [place] [address] Care Team Providers Care Communication Center Operator Name Role Phone Sb Jones Primary Care Provider [phone] Reason for Visit * Reason Comments Back Pain * Consultation (Routine) - Authorized Specialty Diagnoses / Procedures Referred By Contac t Referred To Contact Orthopaedics Diagnoses Radiculopathy of lumbar region Pelvic pain in male Jennifer Vang APRN [facility] [place] [address] [facility] [address] [place] [address] Referral ID Status Reason Start Date Expiration Date Visits Requested Visits Authorized [id number] Authorized Functional Restorative Program 11/12/2023 11/11/2024 54 53 Encounter Details Date Type Department Care Team (Latest Contact Info) Description 01/24/2024 11:00 AM EDT Office Visit Functional Mosque Program at [facility] [address] [place] [address] Mireya Nicole, OT Radiculopathy of lumbar region [...] Treatment - Therapy - Kenyatta Maloney - 01/24/2024 11:00 AM EDT I was present throughout today's treatment/evaluation of the patient with my student participating.Following treatment I've reviewed, discussed and provided feedback to my occupational therapy student in which updates to the note were made. I concur with the note as written and recommend continuing treatment per Plan of Care as written. Mireya Nicole, OTR/L FRP Occupational Therapy Note [facility] Day 14 Protocol Subjective: Mr. Judge returns today for a scheduled follow up appointment with [facility]. He reports feeling better today, with increased confidence in their participation in strengthening and functional tasks. Objective: Refer to [facility] protocol for details and explanation [...] Twist x20 reps - Wall Clock - x8 reps Functional Crate Lifting: - Floor to Waist (straight- leg lifting) = 2 x 10 reps - Waist to Shoulder = 2 x10 reps - Occasional Lift (Squat Lift) = 1x 5 reps Participated in 15 minutes of guided stretching. Instructed in 5 minutes of mindfulness meditation activity focusing on silent meditation techniques. Individualized Treatment: Increased resistance levels of functional conditioning exercises according to personal recovery goals. Continued to monitor form with heavier lifting to ensure good body mechanics, safety and efficiency. Assigned updated target lifting goals for the upcoming weekend. Home exercise program to include once daily functional lifting of forward bend x 20 repetitions and squat x 5 repetitions. Will compliment with once daily walking session, twice daily stretching sessions, and 5-10 minutes of mindfulness meditation from a selection of their choosing. Please see goals in initial OT evaluation report from Day 1. Daily functional conditioning progressis documented on a flow sheet which is available on request. Assessment: Mr. Judge continues to work according to protocol in order to reach his functional goals. He had a good understanding of today's conditioning principles and participated actively in progression of function. He demonstrates good carry over of body postioning and mechanics as physical demands increase for functional lifting and push/pull activities. Mr Judge independently implements counteractive stretches following repetitive movement. Challenges continue with LE weakness and discomfort, however this is expected to improve with continued counteractive stretches and PT consultation. He actively participated with initiation of training components. They were supportive of the other members of the group throughout the session. Plan: Return for follow up with [facility] per protocol. Continue training according to planned progressions towards functional recovery goals. Length of Treatment: Mr. Judge participated in program activities from 11:00 a.m. through 12:00 p.m. today as part of group intervention with individualized cues provided. A total of 45 minutes was spent during that time to establish and implement individualized occupational therapy strategies. Personal Function 3 Month Goals Vocational: Be able to sit for 60-90 minutes, Being able to lift carry water jug (45lbs) Recreational: Be able to hike, be able to kayak on the [place] ; be able to travel ([place]) including walking 3-5 miles. Be able to sit in car for extended period of time. 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 and load senior account director; Be able to chop, lift and carry wood; documented in this encounter Plan of Treatment Upcoming Encounters Date Type Department Care Team (Late st Contact Info) Description 05/05/2024 8:00 AM EST Office Visit Physical Therapy at [facility] [address] [place] [address] Kierra Moreno, PT [facility] PHYSICAL MEDICINE & [place] [address] 05/05/2024 9:00 AM EST Office Visit Functional Mosque Program at [facility] [address] [place] [address] Mireya Nicole, OT 05/19/2024 8:00 AM EST Office Visit Physical Therapy at [facility] [address] [place] [address] Kierra Moreno, PT [facility]YSICAL MED[facility]INE & [place] [address] 06/02/2024 9:00 AM EST Office Visit Physical Therapy at [facility] [address] [place] [address] Kierra Moreno, PT [facility] PHYSICAL MED[facility]INE & [place] [address] documented as of this encounter Visit Diagnoses Diagnosis Radiculopathy of lumbar region Thoracic or lumbosacral neuritis or radiculitis, unspecified documented in this encounter Care Teams Communication Center Operator Relationship Specialty Start Date End Date Sb Jones PA [address] [place] [address] PCP - General Internal Medicine 05/27/23 documented as of this encounter
--- OUTSIDE RECORDS SUMMARY | 2024-03-25 13:59 | XMS_ITS | Encounter Summary ---
Author Organization [facility] Address [facility] [place] [address] Care Team Providers Care Political Researcher Name Role Phone Sb Jones Primary Care Provider Encounter Details Date Type Department Care Team (Late st Contact Info) Description 12/04/2023 Telephone Functional Alevism Program at [facility] [address] [place] [address] Mireya Nicole OT Social History Tobacco Use Types Packs/Day Years [...] as of this encounter Miscellaneous Notes * Telephone Encounter - Mireya Nicole OT - 12/04/2023 10:11 AM EDT Left voicemail for Mr. Judge regarding his enrollment for the Functional Alevism Program for. Instructed him to return our phone call at [phone] to discuss his arrival time, and empowered relief. documented in this encounter Plan of Treatment Upcoming Encounters Date Type Department Care Team (Late st Contact Info) Description 05/05/2024 8:00 AM EST Office Visit Physical Therapy at [facility] [address] [place] [address] Kierra Moreno, PT [facility] PHYSICAL MEDICINE [place] [address] 05/05/2024 9:00 AM EST Office Visit Functional Alevism Program at [facility] [address] [place] [address] Mireya Nicole, OT 05/19/2024 8:00 AM EST Office Visit Physical Therapy at [facility] [address] [place] [address] Kierra Moreno, PT [facility] PHYSICAL MEDICINE [place] [address] 06/02/2024 9:00 AM EST Office Visit Physical Therapy at [facility] [address] [place] [address] Kierra Moreno, PT [facility] PHYSICAL MEDICINE & [place] [address] documented as of this encounter Visit Diagnoses Not on filedocumented in this encounter Care Teams Political Researcher Relationship Specialty Start Date End Date Sb Jones PA [address] [place] [address] PCP - General Internal Medicine 05/27/23 documented as of this encounter
--- OUTSIDE RECORDS SUMMARY | 2024-03-25 13:59 | XMS_ITS | Encounter Summary ---
Author Organization [facility] [place] [address] Care Team Providers Care Speech Pathology Teacher Name Role Phone Sb Jones Primary Care Provider [phone] Reason for Visit * Reason Comments Back Pain * Consultation (Routine) - Authorized Specialty Diagnoses / Procedures Referred By Contac t Referred To Contact Orthopaedics Diagnoses Radiculopathy of lumbar region Pelvic pain in male Jennifer Vang APRN [facility] [place] [address] [facility] [address] [place] [address] Referral ID Status Reason Start Date Expiration Date Visits Requested Visits Authorized [id number] Authorized Functional Restorative Program 11/12/2023 11/11/2024 54 53 Encounter Details Date Type Department Care Team (Latest Contact Info) Description 01/09/2024 11:00 AM EDT Office Visit Functional Christian Program at [facility] [address] [place] [address] Mireya Nicole, OT Radiculopathy of lumbar region [...] Treatment - Therapy - Kenyatta Maloney - 01/09/2024 11:00 AM EDT I was present throughout today's treatment/evaluation of the patient with my student participating.Following treatment I've reviewed, discussed and provided feedback to my occupational therapy student in which updates to the note were made. I concur with the note as written and recommend continuing treatment per Plan of Care as written. Mireya Nicole, OTR/L FRP Occupational Therapy Note [facility] Day 3 Protocol Subjective: Mr. Judge returns today for a scheduled follow up appointment with [facility]. He reports feeling some additional soreness this morning, although was able to sleep more consistently last night. He expressed experiencing general soreness and fatigue following participation in strengthening and functional conditioning activities. Mr. Judge reported LLE fatigue and pain during afternoon function conditioning session, specifically during activities such as the sled and crate lifting withincreased physical demands. Objective: Refer to [facility] protocol for details and explanation of each activity. Mr. Judge participated in the following activities: See individual flow sheets for weight progressions. Group of 7 Introduced the concept of mindfulness meditation and it's application within the functional adventism program. Discussed it's use as an effective pain and stress management technique and discussed evidence for this approach. Assigned evening homework of completing a mindful ADL with a focus on paying attention to the 5 senses during a routine task. Discussed what to expect and general flow of formalized practices. ( X ) Completed ( ) Did not complete Functional Therapy: 1. AM Session of functional conditioning ( X ) Completed ( ) Not Completed Exercises reviewed are as follows: - Crate Carry for 5 Minutes or 1 Handed Bucket carry 10 minutes - Push/Pull - x10 reps - Weighted Cart Twist x20 reps - Wall Clock - x4 reps Functional [...] - x20 reps - PEGS 4 minutes/ 4 Functional Crate Lifting: - Floor to Waist (straight- leg lifting) = 2 x 10 reps - Waist to Shoulder = 2x10 reps - Occasional Lift (Squat Lift) = 1 x 5 reps Instructed in 3 minutes of mindfulness meditation activity focusing on breathing techniques. Participated in a 10 minute outdoor walk around the [facility] including slight incline, and 25 minutes of unguarded beach ball volley ball activity. Individualized Treatment: Increased resistance levels of functional conditioning exercises according to personal recovery goals. Instructed in proper body mechanics for safe lifting. Monitored and instructed in proper form during functional conditioning exercises and provided cues for safety and efficiency. Please see goals in initial OT evaluation report from Day 1. Daily functional conditioning progressis documented on a flow sheet which is available on request. Assessment: Mr. Judge continues to work according to protocol in order to reach his functional goals. He had a good understanding of today's conditioning principles and participated actively in progression of function. He demonstrated good carryover of pacing strategies through mindful breathingtechniques during activities with increased physical demands, such as crate lifting, carry, and push/pull. Challenges continue with LLE fatigue and pain with tasks of increased physical demands. He was provided additional spine offloading techniques via prone press ups from PT, for symptom management and to increase meaningful participation in functional activities. He actively participated with initiation of training components. They were supportive of the other members of the group throughoutthe session. Plan: Return for follow up with [...] establish and implement individualized occupational therapy strategies. documented in this encounter Plan of Treatment Upcoming Encounters Date Type Department Care Team (Late st Contact Info) Description 05/05/2024 8:00 AM EST Office Visit Physical Therapy at [facility] [address] [place] [address] Kierra Moreno, PT [facility] PHYSICAL MEDICINE [place] [address] 05/05/2024 9:00 AM EST Office Visit Functional Christian Program at [facility] [address] [place] [address] Mireya Nicole, OT 05/19/2024 8:00 AM EST Office Visit Physical Therapy at [facility] [address] [place] [address] Kierra Moreno, PT [facility] PHYSICAL MEDICINE & [place] [address] 06/02/2024 9:00 AM EST Office Visit Physical Therapy at [facility] [address] [place] [address] Kierra Moreno, PT [facility] PHYSICAL MEDICINE & [place] [address] documented as of this encounter Visit Diagnoses Diagnosis Radiculopathy of lumbar region Thoracic or lumbosacral neuritis or radiculitis, unspecified documented in this encounter Care Teams Speech Pathology Teacher Relationship Specialty Start Date End Date Sb Jones PA [address] [place] [address] PCP - General Internal Medicine 05/27/23 documented as of this encounter
--- OUTSIDE RECORDS SUMMARY | 2024-03-25 13:59 | XMS_ITS | Encounter Summary ---
Author Organization [facility] [place] [address] Care Team Providers Care Lard Tub Washer Name Role Phone Sb Jones Primary Care Provider [phone] Reason for Visit * Reason Comments Back Pain * Consultation (Routine) - Authorized Specialty Diagnoses / Procedures Referred By Contac t Referred To Contact Orthopaedics Diagnoses Radiculopathy of lumbar region Pelvic pain in male Jennifer Vang APRN [facility] [place] [address] [facility] [address] [place] [address] Referral ID Status Reason Start Date Expiration Date Visits Requested Visits Authorized [id number] Authorized Functional Restorative Program 11/12/2023 11/11/2024 54 53 Encounter Details Date Type Department Care Team (Latest Contact Info) Description 01/08/2024 11:00 AM EDT Office Visit Functional Islam Program at [facility] [address] [place] [address] Mireya Nicole, OT Radiculopathy of lumbar region [...] Treatment - Therapy - Kenyatta Maloney - 01/08/2024 11:00 AM EDT I was present throughout today's treatment/evaluation of the patient with my student participating.Following treatment I've reviewed, discussed and provided feedback to my occupational therapy student in which updates to the note were made. I concur with the note as written and recommend continuing treatment per Plan of Care as written. Mireya Nicole, OTR/L FRP Occupational Therapy Note In Person Orientation to Functional Conditioning [facility] Day 2 Protocol Subjective: Mr. Judge returns for Day 2 of the Functional Islam Program. He reports experiencing some soreness following participation in morning warm up and strengthening blocks. He expressed feeling motivated about their progression in the the program to increase overall functional partic ipation in ADL/IADL, work and recreation activities. Following participation in mat stretching in the afternoon, he expressed feeling LE and back cramping. Objective: Refer to [facility] protocol for additional explanation of program/occupational therapy details. Group of 7 Exercises performed as a group with guidance and individualized cues for form. AM Pain Neuroscience Education/Discussion with OT/PT/ARMAMENT MECHANIC PM Orientation and Conditioning - Mr. Judge received individual instruction in functional conditioning and was given an opportunity to demonstrate understanding of and ability to perform each task. He completed a return demonstration for each exercise to ensure proper form and safety. Introduced straight-leg lifting technique used to increase back strength and decrease fear of re-injury. The rationale for this technique was thoroughly explained so that Mr. Judge understands that, while it is an effective training technique, it will not be the appropriate technique to use for all heavy lifts in the future. Mr. Judge participated in a regular session of conditioning at theconclusion of orientation. PM Conditioning - ( X ) Completed ( ) Did not complete Exercises reviewed are as follows: - Crate Carry for 5 Minutes or 1 Handed Bucket carry 10 minutes - Push/Pull - 0x10 reps - Weighted Vacuum -x20 reps - Wall Clock - PEGS 2 minutes Functional Crate Lifting: - Floor to Waist (straight- leg lifting) = 5 lbs x 10 reps - Waist to Shoulder = 5lbs x10 reps - Occasional Lift (Squat Lift) = 10 lbs x 5 reps Assessment: Mr. Judge demonstrated a good understanding of today's functional conditioning principles and initial exercise protocols. He actively participated with initiation of training components. He demonstrated some decreased cardiovascular endurance due to deconditioning during activities with increased physical demands.. He required verbal cueing for body positioning during squat crate lifting to improve independence in functional task that require increased physical demands for work, ADL/IADL, and recreation activities. Plan: Return for follow up with FRP per protocol. Length of Treatment: Mr. Judge participated in program activities from 11:00 a.m. through 3:00 p.m. today as part of group intervention with individualized cues provided. A total of 45 minutes wasspent during that time to establish and implement individualized occupational therapy strategies. Personal Function 3 Month Goals Vocational: None identified: flexible schedule, able to take stretch breaks, has a sit stand desk Recreational: Be able to hike, be able to kayak on the [place] ; be able to travel ([place]) including walking 3-5 miles. Be able to sit in car for extended period of time. 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 and load home aid; Be able to chop, lift and carry wood; documented in this encounter Plan of Treatment Upcoming Encounters Date Type Department Care Team (Late st Contact Info) Description 05/05/2024 8:00 AM EST Office Visit Physical Therapy at [facility] [address] [place] [address] Kierra Moreno, PT [facility] PHYSICAL MEDICINE & [place] [address] 05/05/2024 9:00 AM EST Office Visit Functional Islam Program at [facility] [address] [place] [address] Mireya Nicole, OT 05/19/2024 8:00 AM EST Office Visit Physical Therapy at [facility] [address] [place] [address] Kierra Moreno, PT [facility] PHYSICAL MEDICINE [place] [address] 06/02/2024 9:00 AM EST Office Visit Physical Therapy at [facility] [address] [place] [address] Kierra Moreno, PT [facility] PHYSICAL MED[facility] [place] [address] documented as of this encounter Visit Diagnoses Diagnosis Radiculopathy of lumbar region Thoracic or lumbosacral neuritis or radiculitis, unspecified documented in this encounter Care Teams Lard Tub Washer Relationship Specialty Start Date End Date Sb Jones PA [address] [place] [address] PCP - General Internal Medicine 05/27/23 documented as of this encounter
--- OUTSIDE RECORDS SUMMARY | 2024-03-25 13:59 | XMS_ITS | Encounter Summary ---
Author Organization [facility] Address [facility] [place] [address] Care Team Providers Care Client Services Specialist Name Role Phone Sb Jones Primary Care Provider Encounter Details Date Type Department Care Team (Latest Contact Info) Description 01/15/2024 Travel Social History Tobacco Use Types Packs/Day [...] AM EST Office Visit Physical Therapy at [facility] [address] [place] [address] Kierra Moreno, PT [facility] PHYSICAL MEDICINE & [place] [address] 05/05/2024 9:00 AM EST Office Visit Functional Zoroastrianism Program at [facility] [address] [place] [address] Mireya Nicole, OT 05/19/2024 8:00 AM EST Office Visit Physical Therapy at [facility] [address] [place] [address] Kierra Moreno, PT [facility] PHYSICAL MEDICINE & [place] [address] 06/02/2024 9:00 AM EST Office Visit Physical Therapy at [facility] [address] [place] [address] Kierra Moreno, PT [facility] PHYSICAL MEDICINE & [place] [address] documented as of this encounter Visit Diagnoses Not on filedocumented in this encounter Care Teams Client Services Specialist Relationship Specialty Start Date End Date Sb Jones PA [address] [facility] [address] [place] [address] PCP - General Internal Medicine 05/27/23 documented as of this encounter
--- OUTSIDE RECORDS SUMMARY | 2024-03-25 13:59 | XMS_ITS | Encounter Summary ---
Author Organization [facility] Address [place] [address] Care Team Providers Care Batch Tester Name Role Phone bS Jones Primary Care Provider Encounter Details Date Type Department Care Team (Latest Contact Info) Description 01/13/2024 Travel Social History Tobacco Use Types Packs/Day [...] AM EST Office Visit Physical Therapy at [facility] [address] [place] [address] Kierra Moreno, PT [facility] PHYSICAL MEDICINE & [place] [address] 05/05/2024 9:00 AM EST Office Visit Functional Yarsani Program at [facility] [address] [place] [address] Mireya Nicole, OT 05/19/2024 8:00 AM EST Office Visit Physical Therapy at [facility] [address] [place] [address] Kierra Moreno, PT [facility] PHYSICAL MEDICINE & [place] [address] 06/02/2024 9:00 AM EST Office Visit Physical Therapy at [facility] [address] [place] [address] Kierra Moreno, PT [facility] PHYSICAL MEDICINE & [place] [address] documented as of this encounter Visit Diagnoses Not on filedocumented in this encounter Care Teams Batch Tester Relationship Specialty Start Date End Date Sb Jones PA [address] [facility] 1 [place] [address] PCP - General Internal Medicine 05/27/23 documented as of this encounter
--- OUTSIDE RECORDS SUMMARY | 2024-03-25 13:59 | XMS_ITS | Encounter Summary ---
Author Organization [facility] Address [facility] [address] Care Team Providers Care Derrick Car Operator Name Role Phone Sb Jones Primary Care Provider Encounter Details Date Type Department Care Team (Latest Contact Info) Description 01/14/2024 Travel Social History Tobacco Use Types Packs/Day [...] AM EST Office Visit Physical Therapy at [facility] [address] [place] [address] Kierra Moreno, PT [facility] PHYSICAL MEDICINE & [place] [address] 05/05/2024 9:00 AM EST Office Visit Functional Anabaptist Program at [facility] [address] [place] [address] Mireya Nicole, OT 05/19/2024 8:00 AM EST Office Visit Physical Therapy at [facility] [address] [place] [address] Kierra Moreno, PT [facility] PHYSICAL MEDICINE & [place] [address] 06/02/2024 9:00 AM EST Office Visit Physical Therapy at [facility] [address] [place] [address] Kierra Moreno, PT [facility] PHYSICAL MEDICINE & [place] [address] documented as of this encounter Visit Diagnoses Not on filedocumented in this encounter Care Teams Derrick Car Operator Relationship Specialty Start Date End Date Sb Jones PA [address] [facility] [address] [place] [address] PCP - General Internal Medicine 05/27/23 documented as of this encounter
--- OUTSIDE RECORDS SUMMARY | 2024-03-25 13:59 | XMS_ITS | Encounter Summary ---
Author Organization [facility] [place] [address] Care Team Providers Care Talent Acquisition Lead Name Role Phone Sb Jones Primary Care Provider [phone] Reason for Visit * Reason Comments Back Pain * Consultation (Routine) - Authorized Specialty Diagnoses / Procedures Referred By Contac t Referred To Contact Orthopaedics Diagnoses Radiculopathy of lumbar region Pelvic pain in male Jennifer Vang APRN [facility] [address] Formerly [facility] [address] [place] [address] Referral ID Status Reason Start Date Expiration Date Visits Requested Visits Authorized [id number] Authorized Functional Restorative Program 11/12/2023 11/11/2024 54 53 Encounter Details Date Type Department Care Team (Latest Contact Info) Description 01/14/2024 11:00 AM EDT Office Visit Functional Gnosticist Program at [facility] [address] [place] [address] Mireya Nicole, OT Radiculopathy of lumbar region [...] Treatment - Therapy - Kenyatta Maloney - 01/14/2024 11:00 AM EDT I was present throughout today's treatment/evaluation of the patient with my student participating.Following treatment I've reviewed, discussed and provided feedback to my occupational therapy student in which updates to the note were made. I concur with the note as written and recommend continuing treatment per Plan of Care as written. Mireya Nicole, OTR/L FRP Occupational Therapy Note [facility] Day 6 Protocol Subjective: Mr. Judge returns today for a scheduled follow up appointment with [facility]. Mr. Shawnparticipated in program despite being in a pain flare. He reports feeling frustrated with his pain experience during the program and finds it challenging to not compare himself with others or where he feels that he should be progressing to. He reports that using the exercise ball was additionally challenging with LLE pain. Objective: Refer to [facility] protocol for details and explanation of [...] (Squat Lift) = 1 x 5 reps Self-care Discussion: Extensive education provided and discussed with Mr. Judge regarding Pacing during everyday activities. We discussed that pacing means reaching a balanced pattern of varied activity that is achievable on good and bad days, and is based off of time rather than symptoms. We discussed that pacing is a skill and takes time to master. We talked about why pacing is important with relation to his everyday activities. We also discussed the most common pain patterns including avoiding, boom and bust, pushing through. Mr. Judge reports He mostly relates to the pushing through his pain. We discussed graduated approaches to increases in activities in order to increasehis tolerances and reduce his brain's associated perception of threat with certain movements and activities. We discussed common difficulties and how to break down tasks and incorporate pacing. Instructed in 16 minutes of mindfulness meditation activity focusing on whole body breathing techniques. Participated in 10 minutes of unguarded [...] and participated actively in progression of function. Challenges continue with lower back pain and LLE neural tension with activities that require forward bending and extended positional tolerances. They demonstrate good insight into their pain experiences and applying pain neuroscience education into their experience. He actively participated with initiation of training [...] the [place] ; be able to travel ([place]) including walking 3-5 miles. Be able to sit in car for extended period of time. 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 and load utility mechanic supervisor; Be able to chop, lift and carry wood; documented in this encounter Plan of Treatment Upcoming Encounters Date Type Department Care Team (Late st Contact Info) Description 05/05/2024 8:00 AM EST Office Visit Physical Therapy at [facility] [address] [place] [address] Kierra Moreno, PT [facility] PHYSICAL MEDICINE & [place] [address] 05/05/2024 9:00 AM EST Office Visit Functional Gnosticist Program at [facility] [address] [place] [address] Mireya Nicole, OT 05/19/2024 8:00 AM EST Office Visit Physical Therapy at [facility] [address] [place] [address] Kierra Moreno, PT [facility] PHYSICAL BENY & [place] [address] 06/02/2024 9:00 AM EST Office Visit Physical Therapy at [facility] [address] [place] [address] Kierra Moreno, PT [facility] PHYSICAL BENY & [place] [address] documented as of this encounter Visit Diagnoses Diagnosis Radiculopathy of lumbar region Thoracic or lumbosacral neuritis or radiculitis, unspecified documented in this encounter Care Teams Talent Acquisition Lead Relationship Specialty Start Date End Date Sb Jones PA Nay MOREL [address] [place] [id number] PCP - General Internal Medicine 05/27/23 documented as of this encounter
--- OUTSIDE RECORDS SUMMARY | 2024-03-25 13:59 | XMS_ITS | Encounter Summary ---
Author Organization [facility] Address [facility] [place] [address] Care Team Providers Care [id number] Analyst Name Role Phone Sb Jones Primary Care Provider Encounter Details Date Type Department Care Team (Late st Contact Info) Description 01/07/2024 9:30 AM EDT Office Visit Functional Temple Program at [facility] [address] [place] [address] Ludwig Schumacher Jr., PT Radiculopathy of lumbar [...] Time Taken Comments Blood Pressure 138/92 01/07/2024 9:21 AM EDT Pulse 61 01/07/2024 9:21 AM EDT Temperature - - Respiratory Rate - - Oxygen Saturation - - Inhaled Oxygen Concentration - - Weight - - Height - - Body Mass Index - - documented in this encounter Miscellaneous Notes * Initial Evaluation - Ludwig Schumacher Jr., PT - 01/07/2024 9:30 AM EDT Functional Temple Program (Day 1) Physical Therapy Examination Personal Function 3 Month Goals Vocational: None identified: flexible schedule, able to take stretch breaks, has a sit stand desk Recreational: Be able to hike, be able to kayak on the [place] ; be able to travel ([place]) including [...] transferring clothes to dryer; 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 Judge reports that the chief complaint requiring rehabilitation is low back pain radiating. He has a long standing history of back pain, with more neurological symptoms including pelvic girdle, abdomen pain, lower extremity numbness and tingling. Anatomic diagnoses have included lumbar radiculopathy. Prior treatments included yoga, THC/CBD, Acetaminophen, Gabapentin, multiple injections, last LESI on 05/28, physical therapy, stretches. Further diagnostic testing is not planned. Additional medical procedures are not planned. 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 Title Endurance and Flexibility Test Results: Reported Tolerance (minutes) First Day of FRP: End of FRP: 1 Month Follow-up: 3 Month Follow-up (optional): Sittin Standin Walkin Flexibility (degrees): Neck: First Day of FRP: End of FRP: 1 Month Follow-up: 3 Month Follow-up (optional): Bending Forward: 65 Bending Back: 55 Turning Right: 75 Turning Left: 80 Tilting Right: 40 Tilting Left: 45 Low Back: First Day of FRP: End of FRP: 1 Month Follow-up: 3 Month Follow-up (optional): Bending Forward: 60 Bending Back: 15 Straight Leg Raise Right: 50 Straight Leg Raise Left: 50 Straight Leg Raise Pelvic: Treadmill First Day of FRP: End of FRP: 1 Month Follow-up: 3 Month Follow-up (optional): MET Level: Heart Rate: MET Level: Heart Rate: MET Level: Heart Rate: MET Level: Heart Rate: Treadmill Endurance: 7 150 Reason for Stopping (if applicable): L leg pain radiating up to back Sensation: Light touch Intact. Reflexes Right Left Tricep normal normal Brachioradialis normal normal Patella normal normal Achilles normal normal AROM (degrees) shoulder flexion right WNL, left WNL. UE Strength Right Left Shoulder abduction 5/5 5/5 Shoulder ER 5/5 5/5 Elbow flexion 5/5 5/5 Elbow extension 5/5 5/5 Wrist ulnar deviation 5/5 5/5 Finger abduction 5/5 5/5 LE Strength Right Left Hip flexion 4/5 4/5 Knee extension 4/5 4/5 Dorsiflexion 4/5 4/5 Hallux extension 4/5 4/5 Plantarflexion 4/5 4/5 Neural tension screening: Seated straight leg raise right positive, left positive. Assessment Som Judge has moderate range of motion deficits and moderate strength deficits with baselinephysical testing. Treadmill testing shows fair tolerance for endurance activities. Posture and gaitobservations reveal marked antalgic deviations. Individual program to be developed slowly over the first two weeks of program with initial focus on symptom management strategies. FRP Goals for Physical Therapy will focus on regaining functional status and functional goals stated above, but objectively Som will have: Improved flexibility, strength, and cardiovascular fitness, the ability to self manage symptoms, and adequately monitor and progress an individualized HEP. Plan Smo will start with FRP for functional and restorative training. Home exercise instruction willcompliment daily conditioning. See enclosed FRP protocol for further details. Total time for testin minutes documented in this encounter Plan of Treatment Upcoming Encounters Date Type Department Care Team (Late st Contact Info) Description 05/05/2024 8:00 AM EST Office Visit Physical Therapy at [facility] [address] [place] [address] Kierra Moreno, PT [facility] PHYSICAL MEDICINE & [place] [address] 05/05/2024 9:00 AM EST Office Visit Functional Temple Program at [facility] [address] [place] [address] Mireya Nicole, OT 05/19/2024 8:00 AM EST Office Visit Physical Therapy at [facility] [address] [place] [address] Kierra Moreno, PT [facility] PHYSICAL [place]IC[facility] [place] [address] 06/02/2024 9:00 AM EST Office Visit Physical Therapy at [facility] [address] [place] [address] Kierra Moreno, PT [facility] PHYSICAL [facility] [place] [address] documented as of this encounter Visit Diagnoses Diagnosis Radiculopathy of lumbar region Thoracic or lumbosacral neuritis or radiculitis, unspecified documented in this encounter Care Teams As400 Analyst Relationship Specialty Start Date End Date Sb Jones PA [address] [place] [address] PCP - General Internal Medicine 05/27/23 documented as of this encounter
--- OUTSIDE RECORDS SUMMARY | 2024-03-25 13:59 | XMS_ITS | Encounter Summary ---
Author Organization [facility] [place] [address] Care Team Providers Care Sheet Metal Former Name Role Phone Sb Jones Primary Care Provider [phone] Reason for Visit * Consultation (Routine) - Authorized Specialty Diagnoses / Procedures Referred By Contac t Referred To Contact Orthopaedics Diagnoses Radiculopathy of lumbar region Pelvic pain in male Jennifer Vang APRN [facility] [place] [address] [facility] [address] [place] [address] Referral ID Status Reason Start Date Expiration Date Visits Requested Visits Authorized [id number] Authorized Functional Restorative Program 11/12/2023 11/11/2024 54 53 Encounter Details Date Type Department Care Team (Late st Contact Info) Description 01/15/2024 8:00 AM EDT Office Visit Functional Quaker Program at [facility] [address] [place] [address] Ludwig Schumacher Jr., PT Radiculopathy of lumbar [...] Therapy - Ludwig Schumacher Jr., PT - 01/15/2024 8:00 AM EDT FRP Physical Therapy Note [facility] Day 7 Protocol Subjective: Vadim returns today for a scheduled follow up appointment with P. Vadim reported Lower Back Pain & Tightness. Objectives and Treatment Received Exercises performed as [...] 2 sets to tolerance Cardio performed today: Elliptical for 10 Mins See [facility] flowsheet for details on time held and weights completed Patient participated in all exercises. Assessment: Vadim returns for follow up visit. He was able to progress weights appropriately, while successfully maintaining form. Cues were needed intermittently for maintenance of posture during exercise and avoid compensation. He actively participated as a member of the group throughout session. Plan: Return for follow up with [facility] per protocol. 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; Be able to chop, lift and carry wood; documented in this encounter Plan of Treatment Upcoming Encounters Date Type Department Care Team (Late st Contact Info) Description 05/05/2024 8:00 AM EST Office Visit Physical Therapy at [facility] [address] [place] [address] Kierra Moreno, PT [facility] PHYSICAL MEDICINE & [place] [address] 05/05/2024 9:00 AM EST Office Visit Functional Quaker Program at [facility] [address] [place] [address] Mireya Nicole, OT 05/19/2024 8:00 AM EST Office Visit Physical Therapy at [facility] [address] [place] [address] Kierra Moreno, PT [facility] PHYSICAL MEDICINE & [place] [address] 06/02/2024 9:00 AM EST Office Visit Physical Therapy at [facility] [address] [place] [address] Kierra Moreno, PT [facility] PHYSICAL MEDICINE & [place] [address] documented as of this encounter Visit Diagnoses Diagnosis Radiculopathy of lumbar region Thoracic or lumbosacral neuritis or radiculitis, unspecified documented in this encounter Care Teams Sheet Metal Former Relationship Specialty Start Date End Date Sb Jones PA [address] [place] [address] PCP - General Internal Medicine 05/27/23 documented as of this encounter
--- OUTSIDE RECORDS SUMMARY | 2024-03-25 13:59 | XMS_ITS | Encounter Summary ---
Author Organization [facility] [place] [address] Care Team Providers Care Firer Watertender Name Role Phone Sb Jones Primary Care Provider [phone] Encounter Details Date Type Department Care Team (Latest Contact Info) Description 01/07/2024 8:45 AM EDT Office [facility] [address] [place] [address] Lacey Gleason APRN [facility] [place] [address] Radiculopathy of lumbar region Social History Tobacco Use Types Packs/Day Years Used Date Smoking Tobacco: Former Cigarettes Q uit: 2007 Smokeless Tobacco: Never Alcohol Use Standard Drinks/Week [...] Index - - documented in this encounter Progress Notes * Lacey Gleason APRN - 01/07/2024 8:45 AM EDT Chief complaint requiring rehabilitation: Lower back pain This is the goals and health barriers visit and note for admission to the Functional Taoist Program. Staying with a friend. Would like to break through the plateaux he has reached with PT. Feels that his depression is directly related to his functional limitations Does not feel that pain is much of an issue for him. Has done extensive mindfulness, yoga and meditation and has an understanding of the pain neuroscience part of things. Feels that his other sx suchas GI, numbness, pressure feeling and weakness are more of the barriers to reaching his functional goals. The patient's current goals are : Personal Function 3 Month Goals Vocational: None identified: flexible schedule, able to take stretch breaks, has a sit stand desk Recreational: Be able to hike, be able to kayak on the [place] ; be able to travel ([place]) including walking 3-5 miles. Be able to sit in car for extended period of time. 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 With these goals in mind, the following review of systems was positive as noted: Medication Review yes Chest pain: no Shortness of breath: no Palpitations: no Chronic cough: no Hypertension: no h/o HTN but was stressed BP high today Joint pains or injuries: prone to dislocation-hypermobility, particularly with knees, bilaterally. Has had prior shoulder surgery. Any physical problem that might worsen with exercise: IBS like condition. Vacillates between constipation and loose BMs. Has had w/u Asthma not usually an issue but has inhaler. Depression: better with desvenlafaxine. 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 Sleep problems: cannabis is helpful. Counseling history: yes, currently Alcohol: none Caffiene: one cup of coffee in morning generally, rarely will have a soda-only a few times per year Cigarettes: quit 10 years ago Marijuana: uses a tincture. 10mg/5mg CBN, 5mg CBD at hs. PHYSICAL EXAM Patient Vitals for the past 24 hrs: Pulse BP 01/07/24 0933 61 (!) 138/92 Lungs: CTA bilaterally Heart: RRR no Murmur no Click Neuro-screen reveals: Dec sensi toes DTRs intact Strength intact with the exception of right knee ext 10 HEALTH BARRIERS TO PERSONAL GOALS with PLAN for EACH: Depression: managed with desvenlafaxine. Will communicate with staff if needed. Has therapist and will have video visits. Hypermobility--has knee support but only needs it after subluxation. Primarily occurs with pivotingsuddenly or other sudden movement. BP high today. monitor periodically--no h/o HTN. Was under high stress this morning. Asthma: very rarely has an issue. Will bring inhaler and stay hydrated. This was a counseling-based visit for 30 of the 45 minute encounter, discussing the goals, barrier problems and plans as outlined above. Lacey Gleason APRN Nurse practitioner Functional Taoist Program [facility] documented in this encounter Plan of Treatment Upcoming Encounters Date Type Department Care Team (Late st Contact Info) Description 05/05/2024 8:00 AM EST [facility] [address] [place] [address] Kierra Moreno, PT [facility] PHYSICAL [facility]ENY & [place] [address] 05/05/2024 9:00 AM EST Office Visit [facility] [address] [place] [address] Mireya Nicole OT 05/19/2024 8:00 AM EST Office [facility] [address] [place] [address] Kierra Moreno, PT [facility] [address] [place] [address] 06/02/2024 9:00 AM EST Office Visit [facility] [address] [place] [address] Kierra Moreno, PT [facility] PHYSICAL [facility] [place] [address] documented as of this encounter Visit Diagnoses Diagnosis Radiculopathy of lumbar region Thoracic or lumbosacral neuritis or radiculitis, unspecified documented in this encounter Care Teams Firer Watertender Relationship Specialty Start Date End Date Sb Jones PA [address] [place] [address] PCP - General Internal Medicine 05/27/23 documented as of this encounter
--- OUTSIDE RECORDS SUMMARY | 2024-03-25 13:59 | XMS_ITS | Encounter Summary ---
Author Organization [facility] [place] [address] Care Team Providers Care Nurse Practical Name Role Phone Sb Jones Primary Care Provider [phone] Reason for Visit * Reason Comments Back Pain * Consultation (Routine) - Authorized Specialty Diagnoses / Procedures Referred By Contac t Referred To Contact Orthopaedics Diagnoses Radiculopathy of lumbar region Pelvic pain in male Jennifer Vang APRN [facility] [place] [address] [facility] [address] [place] [address] Referral ID Status Reason Start Date Expiration Date Visits Requested Visits Authorized [id number] Authorized Functional Restorative Program 11/12/2023 11/11/2024 54 53 Encounter Details Date Type Department Care Team (Latest Contact Info) Description 01/17/2024 11:00 AM EDT Office Visit Functional Nondenominational Program at [facility] [address] [place] [address] Mireya Nicole, OT Radiculopathy of lumbar region [...] Treatment - Therapy - Kenyatta Maloney - 01/17/2024 11:00 AM EDT I was present throughout today's treatment/evaluation of the patient with my student participating.Following treatment I've reviewed, discussed and provided feedback to my occupational therapy student in which updates to the note were made. I concur with the note as written and recommend continuing treatment per Plan of Care as written. Mireya Nicole, OTR/L FRP Occupational Therapy Note [facility] Day 9 Protocol Subjective: Mr. Judge returns today for a scheduled follow up appointment with [facility]. He reports feeling motivated following midway testing to increase the level of participation and physical demands of activities. Mr. Judge expressed feeling motivated and capable to go on a small hike this weekend due to their progression in program thus far. He expressed mild RLE weakness and change in sensation during functional conditioning activities. Objective: Refer to [facility] protocol for details and explanation of each activity. Mr. Judge participated in the following activities: See individual flow sheets for weight progressions. Group of 7 Functional Therapy: 1. AM Session of functional conditioning ( X ) Completed ( ) Not Completed Exercises reviewed are as follows: - Crate Carry for 5 Minutes or 1 Handed Bucket carry 10 minutes - Push/Pull - x10 reps - Weighted Cart Twist x20 reps - Wall Clock - x4 reps - PEGS 4 minutes/ 0 Functional Crate Lifting: - Floor to Waist (straight- leg lifting) = 2 x 10 reps - Waist to Shoulder = 2 x10 reps - Occasional Lift (Squat Lift) = 1x 5 reps 2. PM Session of unguarded activity and mindfulness ( X ) Completed ( ) Not Completed Instructed in 20 minutes of mindfulness meditation activity focusing on progressive muscle relaxation techniques. Participated in 30 minutes of unguarded card game activity . Individualized Treatment: Increased resistance levels of functional conditioning exercises according to personal recovery goals. Instructed in proper body mechanics for safe lifting. Monitored and instructed in proper form during functional conditioning exercises and provided cues for safety and efficiency. Weekend Homework Assigned updated target lifting goals for the upcoming weekend. Home exercise program to include once daily functional lifting of forward bend x 20 repetitions and squat x 5 repetitions. Will compliment with once daily walking session, twice daily stretching sessions, and 5-10 minutes of mindfulness meditation from a selection of their choosing. Weekend Lifting Numbers Type of lift Weight Forward Bend 23 Squat 28 Please see goals in initial OT evaluation report from Day 1. Daily functional conditioning progressis documented on a flow sheet which is available on request. Assessment: Mr. Judge continues to work according to protocol in order to reach his functional goals. He had a good understanding of today's conditioning principles and participated actively in progression of function. They demonstrate consistent carry over of counter active stretches to improve participation in functional activities as physical demands increase. Challenges continue with LE weakness and change in sensation during crate lifting and sled push/pull exercises as demands increase. Mr. Judge presents with improved insight into the connection between pacing strategies for painmanagement to increase participation in meaningful activities. He actively participated with initiation of [...] the [place] ; be able to travel ([place]) including walking 3-5 miles. Be able to sit in car for extended period of time. 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; Be able to chop, lift and carry wood; documented in this encounter Plan of Treatment Upcoming Encounters Date Type Department Care Team (Late st Contact Info) Description 05/05/2024 8:00 AM EST Office Visit Physical Therapy at [facility] [address] [place] [address] Kierra Moreno, PT [facility] PHYSICAL MEDICINE & [place] [address] 05/05/2024 9:00 AM EST Office Visit Functional Nondenominational Program at [facility] [address] [place] [address] Mireya Nicole, OT 05/19/2024 8:00 AM EST Office Visit Physical Therapy at [facility] [address] [place] [address] Kierra Moreno, PT [facility] PHYSICAL MEDICINE & [place] [address] 06/02/2024 9:00 AM EST Office Visit Physical Therapy at [facility] [address] [place] [address] iKerra Moreno, PT [facility] PHYSICAL MEDICINE & [place] [address] documented as of this encounter Visit Diagnoses Diagnosis Radiculopathy of lumbar region Thoracic or lumbosacral neuritis or radiculitis, unspecified documented in this encounter Care Teams Nurse Practical Relationship Specialty Start Date End Date Sb Jones PA [address] [place] [address] PCP - General Internal Medicine 05/27/23 documented as of this encounter
--- OUTSIDE RECORDS SUMMARY | 2024-03-25 13:59 | XMS_ITS | Encounter Summary ---
Author Organization [facility] Address [facility] [place] [address] Care Team Providers Care Count Room Clerk Name Role Phone Sb Jones Primary Care Provider [phone] Encounter Details Date Type Department Care Team (Late st Contact Info) Description 01/06/2024 Telephone [place] [address] Lacey Gleason APRN [facility] [place] [address] Social History Tobacco Use Types Packs/Day Years [...] encounter Miscellaneous Notes * Telephone Encounter - Destiny Chen - 01/06/2024 10:19 AM EDT Pt called to confirm his location for appt today with Lacey Gleason & for juany starting the FRP program. Advised pt his [place] today [place] [place] [address] [place] & the [facility] [address] for his FRP appt on 01/07/24 documented in this encounter Plan of Treatment Upcoming Encounters Date Type Department Care Team (Late st Contact Info) Description 05/05/2024 8:00 AM EST Office Visit Physical Therapy at [facility] [address] [place] [address] Kierra Moreno, PT [facility] PHYSICAL MEDICINE & [place] [address] 05/05/2024 9:00 AM EST Office Visit Functional Mu-Ism Program at [facility] [address] [place] [address] Mireya Nicole, OT 05/19/2024 8:00 AM EST Office Visit Physical Therapy at [facility] [address] [place] [address] Kierra Moreno, PT [facility] PHYSICAL [facility] [place] [address] 06/02/2024 9:00 AM EST Office Visit Physical Therapy at [facility] [address] [place] [address] Kierra Moreno, PT [facility] [place] [address] documented as of this encounter Visit Diagnoses Not on filedocumented in this encounter Care Teams Count Room Clerk Relationship Specialty Start Date End Date Sb Jones PA [address] [place] [address] PCP - General Internal Medicine 05/27/23 documented as of this encounter
--- OUTSIDE RECORDS SUMMARY | 2024-03-25 13:59 | XMS_ITS | Encounter Summary ---
Author Organization [facility] Address [facility] [place] [address] Care Team Providers Care Senior Data Developer Name Role Phone Sb Jones Primary Care Provider [phone] Encounter Details Date Type Department Care Team (Latest Contact Info) Description 01/17/2024 Travel Social History Tobacco Use Types Packs/Day [...] AM EST Office Visit Physical Therapy at [facility] [address] [place] [address] iKerra Moreno, PT [facility] PHYSICAL MEDICINE & [place] [address] 05/05/2024 9:00 AM EST Office Visit Functional Bahai Program at [facility] [address] [place] [address] Mireya Nicole, OT 05/19/2024 8:00 AM EST Office Visit Physical Therapy at [facility] [address] [place] [address] Kierra Moreno, PT [facility] PHYSICAL MEDICINE & [place] [address] 06/02/2024 9:00 AM EST Office Visit Physical Therapy at [facility] [address] [place] [address] Kierra Moreno, PT [facility] PHYSICAL MEDICINE & [place] [address] documented as of this encounter Visit Diagnoses Not on filedocumented in this encounter Care Teams Senior Data Developer Relationship Specialty Start Date End Date Sb Jones PA [address] [facility] [address] [place] [address] PCP - General Internal Medicine 05/27/23 documented as of this encounter
--- OUTSIDE RECORDS SUMMARY | 2024-03-25 13:59 | XMS_ITS | Encounter Summary ---
Author Organization [facility] [place] [address] Care Team Providers Care Stock Patch Sawyer Name Role Phone Sb Jones Primary Care Provider [phone] Reason for Visit * Reason Comments Back Pain * Consultation (Routine) - Authorized Specialty Diagnoses / Procedures Referred By Contac t Referred To Contact Orthopaedics Diagnoses Radiculopathy of lumbar region Pelvic pain in male Jennifer Vang APRN [facility] [place] [address] [facility] [address] [place] [address] Referral ID Status Reason Start Date Expiration Date Visits Requested Visits Authorized [id number] Authorized Functional Restorative Program 11/12/2023 11/11/2024 54 53 Encounter Details Date Type Department Care Team (Latest Contact Info) Description 01/21/2024 11:00 AM EDT Office Visit Functional Protestant Program at [facility] [address] [place] [address] Mireya Nicole, OT Radiculopathy of lumbar region [...] Treatment - Therapy - Kenyatta Maloney - 01/21/2024 11:00 AM EDT I was present throughout today's treatment/evaluation of the patient with my student participating.Following treatment I've reviewed, discussed and provided feedback to my occupational therapy student in which updates to the note were made. I concur with the note as written and recommend continuing treatment per Plan of Care as written. Mireya Nicole, OTR/L FRP Occupational Therapy Note [facility] Day 11 Protocol Subjective: Mr. Judge returns today for a scheduled follow up appointment with [facility]. He reports feeling motivated about program and their progression in physical demands. He expressed that morning functional activities were challenging as he increased physical demands during morning strengtheningblock. Following morning crate carry, he reported intense lower back, LE, and testicular pain. Objective: Refer to [facility] protocol for details and explanation of [...] reps - Weighted Cart Twist x20 reps Functional Crate Lifting: - Floor [...] = 1 x 5 reps Instructed in 20 minutes of mindfulness meditation activity focusing on visual imagery relaxation techniques. Individualized Treatment: Increased resistance levels of functional conditioning exercises according to personal recovery goals. Instructed in proper body mechanics for safe lifting. Monitored and instructed in proper form during functional conditioning exercises and provided cues for safety and efficiency. Self-Care Discussion: Your Amazing Protectometer Discussion around applying Pain Neuroscience Education (PNE), including the concepts of an over-sensitive alarm, the [...] educational video with Kirk Duran, PhD, Dsc ([email or web address]) describing the brain's role in pain processing, and the ways that implicit messages of danger or safety determine the brain's [...] function. Challenges continue with lower back pain during crate carry functional activities, specifically LLE. Mr. Judge received pain management consultation via PT during morning functional conditioning. Mr. Judge completed ten minutes of additional mindfulness prior to afternoon functional conditioning to improve participation of functional activities as physical demands increase and independent carry over of pacing strategies. He completed functional crate lifting via alternating between waist to shoulder and floor to waist, as well as back twisting counteractive stretches. He actively participated with initiation [...] hike, be able to kayak on the [place] ; be able to travel ([place]) including walking 3-5 miles. Be able to sit in car for extended period of time. 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 and load plant sciences professor; Be able to chop, lift and carry wood; documented in this encounter Plan of Treatment Upcoming Encounters Date Type Department Care Team (Late st Contact Info) Description 05/05/2024 8:00 AM EST Office Visit Physical Therapy at [facility] [address] [place] [address] Kierra Moreno, PT [facility] PHYSICAL MEDICINE & [place] [address] 05/05/2024 9:00 AM EST Office Visit Functional Protestant Program at [facility] [address] [place] [address] Mireya Nicole OT 05/19/2024 8:00 AM EST Office Visit Physical Therapy at [facility] [address] [place] [address] Kierra Moreno, PT [facility] & [place] [address] 06/02/2024 9:00 AM EST Office Visit Physical Therapy at [facility] [address] [place] [address] Kierra Moreno, PT [facility] PHYSICAL [facility] [place] [address] documented as of this encounter Visit Diagnoses Diagnosis Radiculopathy of lumbar region Thoracic or lumbosacral neuritis or radiculitis, unspecified documented in this encounter Care Teams Stock Patch Sawyer Relationship Specialty Start Date End Date Sb Jones PA [address] [place] [address] PCP - General Internal Medicine 05/27/23 documented as of this encounter
--- OUTSIDE RECORDS SUMMARY | 2024-03-25 13:59 | XMS_ITS | Encounter Summary ---
Author Organization [facility] [place] [address] Care Team Providers Care Engineering Librarian Name Role Phone Sb Jones Primary Care Provider [phone] Reason for Visit * Consultation (Routine) - Closed Specialty Diagnoses / Procedures Referred By Contac t Referred To Contact Pain and Spine Center Diagnoses Radiculopathy of lumbar region Pelvic pain in male [employer] - Vang - FRP Jennifer Guaman HEAD TRACK COACH [facility] [place] [address] [facility] [place] [address] Referral ID Status Reason Start Date Expiration Date V isits Requested Visits Authorized [id number] Closed Consult, Test & Treat 11/12/2023 11/11/2024 1 1 Encounter Details Date Type Department Care Team (Latest Contact Info) Description 01/06/2024 2:00 PM EDT Office Visit [place] [address] Lacey Gleason, [facility] [address] Radiculopathy of lumbar region; Pelvic pain in male Social History Tobacco Use Types Packs/Day Years [...] as of this encounter Progress Notes * Lacey Gleason APRN - 01/06/2024 2:00 PM EDT Som attended [employer] - Train Your Brain Away From Pain - a single session evidence- and skill-based class. During the class, Som learned the following skills: 1. How pain is processed in the brain and how to best manage it. 2. How to use a guided relaxation exercise to reduce the pain and stress response. Som came away from the class with a binaural audiofile with a guided relaxation exercise on it. Som was encouraged to practice this relaxation exercise daily for at least 2 months (can taper to less frequently afterwards). 3. How to counteract his unhelpful pain thoughts, which can worsen pain, by practicing positive or neutral thought reframing. 4. How to develop and utilize a list of self-soothing actions which can be used to interrupt negative pain thoughts and the pain response. At the end of the class, Som created his own Personalized Plan for pain relief which included the following items: 1) how often he will use the guided relaxation exercise, 2) a list of his most significant unhelpful pain thoughts and then a reframe of these unhelpful pain thoughts using the best friend talk technique and 3) a list of positive self-soothing actions which are used to interrupt the pain response. documented in this encounter Plan of Treatment Upcoming Encounters Date Type Department Care Team (Late st Contact Info) Description 05/05/2024 8:00 AM EST Office Visit Physical Therapy at [facility] [address] [place] [address] Kierra Moreno, [facility] PHYSICAL MEDICINE & [place] [address] 05/05/2024 9:00 AM EST Office Visit Functional Anglican Program at [facility] [address] [place] [address] Mireya Nicole, OT 05/19/2024 8:00 AM EST Office Visit Physical Therapy at [facility] [address] [place] [address] Kierra Moreno, PT [facility] PHYSICAL MEDICINE & [place] [address] 06/02/2024 9:00 AM EST Office Visit Physical Therapy at [facility] [address] [place] [address] Kierra Moreno, PT [facility] PHYSICAL MEDICINE & [place] [address] Scheduled Referrals Name Type Priority Associated Diagnoses Orde r Schedule Amb Referral to Active Pain Care Services Outpatient Referral Routine Radiculopathy of lumbar region Pelvic pain in male Ordered: 11/12/2023 documented as of this encounter Visit Diagnoses Diagnosis Radiculopathy of lumbar region Thoracic or lumbosacral neuritis or radiculitis, unspecified Pelvic pain in male Abdominal pain, other specified site documented in this encounter Care Teams Engineering Librarian Relationship Specialty Start Date End Date Sb Jones PA [address] [place] [address] PCP - General Internal Medicine 05/27/23 documented as of this encounter
--- OUTSIDE RECORDS SUMMARY | 2024-03-25 13:59 | XMS_ITS | Encounter Summary ---
Author Organization [facility] [place] [address] Care Team Providers Care Box Lidder Name Role Phone Sb Jones Primary Care Provider [phone] Reason for Visit * Reason Comments Back Pain * Consultation (Routine) - Authorized Specialty Diagnoses / Procedures Referred By Contac t Referred To Contact Orthopaedics Diagnoses Radiculopathy of lumbar region Pelvic pain in male eJnnifer Vang APRN [facility] [place] [address] [facility] [address] [place] [address] Referral ID Status Reason Start Date Expiration Date Visits Requested Visits Authorized [id number] Authorized Functional Restorative Program 11/12/2023 11/11/2024 54 53 Encounter Details Date Type Department Care Team (Latest Contact Info) Description 01/07/2024 10:15 AM EDT Office Visit Functional Jain Program at [facility] [address] [place] [address] Mireya Nicole, OT Radiculopathy of [...] as of this encounter Miscellaneous Notes * Initial Evaluation - Kenyatta Maloney - 01/07/2024 10:15 AM EDT I was present throughout today's treatment/evaluation of the patient with my student participating.Following treatment I've reviewed, discussed and provided feedback to my occupational therapy student in which updates to the note were made. I concur with the note as written and recommend continuing treatment per Plan of Care as written. Mireya Nicole, OTR/L Functional Jain Program (Day 1) Group #: [id number] Occupational Therapy Evaluation Problem List: Unclear Vocational Goal Inability to do usual and customary job and daily activities secondary to decreased lifting strength, functional ROM, limited positional tolerances, fear of re-injury and inability to manage pain. Mr. Judge lacks effective pain management strategies to use on the job, in the community, and athome. Decreased ability to participate in activities of daily living and home maintenance. 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 Subjective: Mr. Judge reports that the primary reason for seeking Occupational Therapy services through the Functional Jain Program is low back pain that radiates. Mr. Judge reports a long standing history of back pain, with neurological symptoms including pelvic girdle, abdomen pain, lower extremity numbness and tingling. Mr. 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 Judge reports the following return to work plan: . Do you plan to return to work after the program: Yes Job to return to: Yes, Vocational Rehab Position He is not working with a Vocational Rehabilitation counselor at this time. Mr. Judge reports receiving the following benefits: FMLA Self-Care (ADL & IADL) & Leisure Activities: Based on the occupational performance interview of the Mitchell Occupational Performance Measure (COPM), Mr. Judge reports Moderate limitationsin self-care and leisure activities. He reports most difficulty with activities with push/pull, carry/lifting heavier objects, positional tolerances, forward bend to improve participation in ADL/IADL, work, and recreation activities to enhance QoL. Occupational Goals FRP Day 1 P S Current Status: End of Program Current Status: 1-month Follow-up P S Work/Productive Activity: Being able to sit for 60-90 minutes 4 1 Being able to lift, carry, and transport water jug (45lbs) 1 1 Recreation/Leisure: Be able to hike (uneven terrain, ascent above 5%, 2-3 miles) 1 1 Be able to Kayak ( getting in/out, dragging the kayak for .5 mile at 90lbs, twisting motion during paddling, 1 1 Be able to sit in a car for an extended period of time (sitting for extended periods of time), Be able to travel, ([place]) including walking 3-5 miles 1 1 Daily Living (ADL, IADL): Be able to do yard work ( lift/carry garbage, slight forward bend) 2 1 Be able to do laundry including unloading machines, transferring clothes to dryer; unload and load crew clerk (slight forward bend) 5 1 Be able to lift and carry groceries into the house; lifting and carryings items (greater than 10lbs) 2 1 Be able to chop, lift and carry wood 3 1 Total 20 9 Total Mean score 2.2 1 Mean score Change from Day 1 (??2 point change is clinically significant) Lifting Goal: 75 lbs Current Lifting lbs Current Lifting lbs *Estrella: P=Performance Score S=Satisfaction with Performance Score ASSESSMENT of OCCUPATIONAL PERFORMANCE Physical Capacity Test Results: Lifting: (pounds/heart rate) First Day of FRP End of Program 1 Month Follow-Up 3 Month Follow-Up Repetitive Floor to Waist 20/123 Repetitive Waist to Shoulder 15/108 1-Time Maximum 25 2-Handed Carry - 50 ft 10 Work Demand Level Light The results of this testing must be integrated with clinical findings and other observations to derive a final assessment of work capacity. Assessment: Mr. Judge is unable to fully participate in work, recreational, and home-based activities because of decreased functional strength, decreased AROM, decreased endurance, limited positional tolerances, fear of re-injury, and fear of increased pain. He will benefit from participating xi functional conditioning program designed to increase functional strength, flexibility, and endurance in order to meet functional goals. FRP Goals: While working towards the terminal clerk (3 month) functional goals listed above, Mr. Judge will accomplish the following short term goals during the 4- week intensive rehabilitation program.Mr. Judge will: 1. Develop a viable return to work plan. 2. Demonstrate physical capacities consistent with a Medium-Heavy work demand level. 3. Demonstrate increased functional strength by lifting 75 pounds floor to waist and 35 pounds waist to shoulder in order to meet work and home lifting goals. 4. Increase his positional tolerances to the level needed for work and home activities. 5. Implement self-care and relapse prevention strategies during the program and at home to control pain. Plan: 1. Functional conditioning 2 times daily to increase physical capacities and allow Mr. Judge to meet demands of work, recreation and home. 2. Individual counseling / education to develop return to work plan and better understand the return to work process and to develop individualized strategies for self-care pain management, relapse prevention, activity / environmental modifications 3. Daily stretching, relaxation training and walking to increase functional tolerances and allow Mr. Judge to meet demands of work, recreation and daily activities to meet occupational goals. 4. Therapeutic activities to increase ability to move quickly and tolerate unguarded movements. 45 minutes were spent today to interview Mr. Judge and test physical capacities. documented in this encounter Plan of Treatment Upcoming Encounters Date Type Department Care Team (Late st Contact Info) Description 05/05/2024 8:00 AM EST Office Visit Physical Therapy at [facility] [address] [place] [address] Kierra Moreno, PT [facility] PHYSICAL [place] [place] [address] 05/05/2024 9:00 AM EST Office Visit Functional Jain Program at [facility] [address] [place] [address] Mireya Nicole, OT 05/19/2024 8:00 AM EST Office Visit Physical Therapy at [facility] [address] [place] [address] Kierra Moreno, PT [facility] PHYSICAL MEDIC[facility] [place] [address] 06/02/2024 9:00 AM EST Office Visit Physical Therapy at [facility] [address] [place] [address] Kierra Moreno, PT [facility] PHYSICAL MEDICINE & [place] [address] Scheduled Referrals Name Type Priority Associated Diagnoses Orde r Schedule Referral to Medical Clearance (FRP Only) Outpatient Referral Routine Radiculopathy of lumbar region Pelvic pain in male Ordered: 11/12/2023 documented as of this encounter Visit Diagnoses Diagnosis Radiculopathy of lumbar region Thoracic or lumbosacral neuritis or radiculitis, unspecified documented in this encounter Care Teams Box Lidder Relationship Specialty Start Date End Date Sb Jones PA [address] [place] [address] PCP - General Internal Medicine 05/27/23 documented as of this encounter
--- OUTSIDE RECORDS SUMMARY | 2024-03-25 13:59 | XMS_ITS | Encounter Summary ---
Author Organization [facility] [place] [address] Care Team Providers Care Gm/Svp Global Publisher Business Name Role Phone Sb Jones Primary Care Provider [phone] Reason for Visit * Consultation (Routine) - Authorized Specialty Diagnoses / Procedures Referred By Contac t Referred To Contact Orthopaedics Diagnoses Radiculopathy of lumbar region Pelvic pain in male Jennifer Vang APRN [facility] [place] [address] [facility] [address] [place] [address] Referral ID Status Reason Start Date Expiration Date Visits Requested Visits Authorized [id number] Authorized Functional Restorative Program 11/12/2023 11/11/2024 54 53 Encounter Details Date Type Department Care Team (Latest Contact Info) Description 01/13/2024 10:00 AM EDT Office Visit Functional Tenriism Program at [facility] [address] [place] [address] Jennifer Vang CUPBOARD BUILDER [facility] [place] [address] Radiculopathy of lumbar region Social History Tobacco [...] Progress Notes * Jennifer Vang APRN - 01/13/2024 10:00 AM EDT 01/13/2024 [id number] Som Judge 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 This one hour lecture begins with a review of the patho-anatomic model of pain transmission and reviews basic neuro anatomy . The relationship between pain and cognitive states is reviewed. As is the concept of central sensitization. A discussion regarding coping skills such as meditation, mindfulness and cognitive restructuring is discussed neuroscience This group is intended to educate patients on how the nervous system and the brain process information and contribute to their pain experience. The intention is to help patients better understand thecomplexity of their pain and enhance their motivation and ability to engage in active pain care, and thereby develop more effective self management strategies. Participants were educated that pain is a normal, human experience, however persistent pain is typically more due to the sensitive nervous system and how the brain processes information from the bodyand environment. Participants were provided the rationale for the education: that research has shown that if patients know and understand about pain, they experience better treatment outcomes, function better, experience less pain, and have greater interest in healthy exercise and movement. .cmosig documented in this encounter Plan of Treatment Upcoming Encounters Date Type Department Care Team (Late st Contact Info) Description 05/05/2024 8:00 AM EST Office Visit Physical Therapy at [facility] [address] [place] [address] Kierra Moreno, PT [facility] PHYSICAL MEDICINE & [place] [address] 05/05/2024 9:00 AM EST Office Visit Functional Tenriism Program at [facility] [address] [place] [address] Mireya Nicole OT 05/19/2024 8:00 AM EST Office Visit Physical Therapy at [facility] [address] [place] [address] Kierra Moreno, PT [facility] PHYSICAL MEDICINE & [place] [address] 06/02/2024 9:00 AM EST Office Visit Physical Therapy at [facility] [address] [place] [address] Kierra Moreno, PT [facility] PHYSICAL MEDICINE & [place] [address] documented as of this encounter Visit Diagnoses Diagnosis Radiculopathy of lumbar region Thoracic or lumbosacral neuritis or radiculitis, unspecified documented in this encounter Care Teams Gm/Svp Global Publisher Business Relationship Specialty Start Date End Date Sb Jones PA [address] [facility] [address] [place] [address] PCP - General Internal Medicine 05/27/23 documented as of this encounter
--- OUTSIDE RECORDS SUMMARY | 2024-03-25 13:59 | XMS_ITS | Encounter Summary ---
Author Organization [facility] [place] [address] Care Team Providers Care Automotive Service Professional Name Role Phone Sb Jones Primary Care Provider [phone] Reason for Visit * Consultation (Routine) - Authorized Specialty Diagnoses / Procedures Referred By Contac t Referred To Contact Orthopaedics Diagnoses Radiculopathy of lumbar region Pelvic pain in male Jennifer Vang APRN [facility] [address] [place] [address] [facility] [address] [place] [address] Referral ID Status Reason Start Date Expiration Date Visits Requested Visits Authorized [id number] Authorized Functional Restorative Program 11/12/2023 11/11/2024 54 53 Encounter Details Date Type Department Care Team (Late st Contact Info) Description 01/08/2024 8:00 AM EDT Office Visit Functional Muslim Program at [facility] [address] [place] [address] Ludwig Schumacher Jr., PT Radiculopathy of lumbar [...] Therapy - Ludwig Schumacher Jr., PT - 01/08/2024 8:00 AM EDT FRP Physical Therapy Note FRP Day 2 Protocol Subjective: Vadim returns today for a scheduled follow up appointment with FRP. Vadim is excited and nervous about beginning FRP, not knowing if will be able to do everything. Objectives and Treatment Received: Participated in session as a member of a group of 7. 30 Minutes Standing Warm Up Exercises High March Heel-kick March Squat Step Back Toe Touch Knees to Hands B Forward Lunges Side Lunges Forward bends and Backward Bend Chin Tucks 30 Minutes Supine, Sidelying, Prone Mat Exercises (x10 each) Lower trunk rotation Straight Leg Raises Curl Up/Crunch Bridge Lower Abdominal Foot Taps B Sidelying Hip Abduction Prone Scap Retraction Prone Hip Extension Press Ups Introduction to gym routine including dumbbells, weight machines, and gui chair. Clinician demonstration provided with cues on form and common compensations made during each individual exercise. Exercises reviewed are as follows: Dumbbells - Bicep curls, shoulder raises to 90 degrees of flexion, straight leg deadlift, and pronereverse flies on plinth. x10 reps for each Weight Machines - Lat pull downs, single arm seated row, leg press, chest press, knee extensions, and back extensions. x10 reps for each Gui chair back extensions - instruction provided on options for rest position to either hang down, or to push back up into standing with assist from upper extremities depending on tolerance. 5 holds Patient participated in all exercises, with some apprehension secondary to fear and anxiety. Flow sheets reviewed for future use. Assessment: Vadim was introduced to gym routine to be accomplished daily during program with cues provided and followed. He demonstrates good comprehension of today's strengthening principles and initial exercise protocols. He actively participated with initiation of training components. They were supportive of the other members of the group throughout the session. Plan: Return for follow up with FRP per protocol. Length of visit: Participated in strengthening program physical activity from 8:00 a.m. through 12:00 a.m. today as part of group intervention with individualized cues provided. 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; Be able to chop, lift and carry wood; documented in this encounter Plan of Treatment Upcoming Encounters Date Type Department Care Team (Late st Contact Info) Description 05/05/2024 8:00 AM EST Office Visit Physical Therapy at [facility] [address] [place] [address] Kierra Moreno, PT [facility] PHYSICAL MEDICINE & [place] [address] 05/05/2024 9:00 AM EST Office Visit Functional Muslim Program at [facility] [address] [place] [address] Mireya Nicole, OT 05/19/2024 8:00 AM EST Office Visit Physical Therapy at [facility] [address] [place] [address] Kierra Moreno, PT [facility] PHYSICAL MEDICINE & [place] [address] 06/02/2024 9:00 AM EST Office Visit Physical Therapy at [facility] [address] [place] [address] Kierra Moreno, PT [facility] PHYSICAL MEDICINE & [place] [address] documented as of this encounter Visit Diagnoses Diagnosis Radiculopathy of lumbar region Thoracic or lumbosacral neuritis or radiculitis, unspecified documented in this encounter Care Teams Automotive Service Professional Relationship Specialty Start Date End Date Sb Jones PA [address] [place] [address] PCP - General Internal Medicine 05/27/23 documented as of this encounter
--- OUTSIDE RECORDS SUMMARY | 2024-03-25 13:59 | XMS_ITS | Encounter Summary ---
Author Organization [facility] [place] [address] Care Team Providers Care Train Dispatcher Name Role Phone Sb Jones Primary Care Provider [phone] Reason for Visit * Consultation (Routine) - Authorized Specialty Diagnoses / Procedures Referred By Contac t Referred To Contact Orthopaedics Diagnoses Radiculopathy of lumbar region Pelvic pain in male Jennifer Vang APRN [facility] [place] [address] [facility] [address] [place] [address] Referral ID Status Reason Start Date Expiration Date Visits Requested Visits Authorized [id number] Authorized Functional Restorative Program 11/12/2023 11/11/2024 54 53 Encounter Details Date Type Department Care Team (Late st Contact Info) Description 01/14/2024 8:00 AM EDT Office Visit Functional Rastafari Program at [facility] [address] [place] [address] Ludwig Schumacher Jr., PT Radiculopathy of lumbar [...] Therapy - Ludwig Schumacher Jr., PT - 01/14/2024 8:00 AM EDT FRP Physical Therapy Note P Day 6 Protocol Subjective: Vadim returns today for a scheduled follow up appointment with FRP. Vadim reported his Lower Back is sore this morning. Objectives and Treatment Received Exercises [...] Extensions 30 Minutes Exercise Ball (2 x 10 each) Seated Spine Flexion/Extension Seated Alt Arm [...] performed today: 10 Mins on TM See P flowsheet for details on time held and weights completed Patient participated in all exercises. Assessment: Vadim returns for follow up visit. He was able to progress weights appropriately, while successfully maintaining form. Cues were needed intermittently for maintenance of posture during exercise and avoid compensation. He actively participated as a member of the group throughout session. Rep L Side Lying Rotations followed by Rep L Side Lying Rotations w/ PT Over-Pressure Centralized, Better. Plan: Return for follow up with [facility] per protocol. 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 PHYSICAL MEDICINE [place] [address] 05/05/2024 9:00 AM EST Office Visit Functional Rastafari Program at [facility] [address] [place] [address] Mireya Nicole, OT 05/19/2024 8:00 AM EST Office Visit Physical Therapy at [facility] [address] [facility] [address] Kierra Moreno, PT [facility] PHYSICAL MEDICINE & [place] [address] 06/02/2024 9:00 AM EST Office Visit Physical Therapy at [facility] [address] [place] [address] Kierra Moreno, PT [facility] PHYSICAL MEDICINE & [place] [address] documented as of this encounter Visit Diagnoses Diagnosis Radiculopathy of lumbar region Thoracic or lumbosacral neuritis or radiculitis, unspecified documented in this encounter Care Teams Train Dispatcher Relationship Specialty Start Date End Date Sb Jones PA [address] [place] [address] PCP - General Internal Medicine 05/27/23 documented as of this encounter
--- OUTSIDE RECORDS SUMMARY | 2024-03-25 13:59 | XMS_ITS | Encounter Summary ---
Author Organization Formerly [facility] [place] [address] Care Team Providers Care Peoplesoft Hcm Consultant Name Role Phone Sb Jones Primary Care Provider [phone] Reason for Visit * Consultation (Routine) - Authorized Specialty Diagnoses / Procedures Referred By Contac t Referred To Contact Orthopaedics Diagnoses Radiculopathy of lumbar region Pelvic pain in male Jennifer Vang APRN [facility] [place] [address] [facility] [address] [place] [address] Referral ID Status Reason Start Date Expiration Date Visits Requested Visits Authorized [id number] Authorized Functional Restorative Program 11/12/2023 11/11/2024 54 53 Encounter Details Date Type Department Care Team (Late st Contact Info) Description 01/16/2024 8:00 AM EDT Office Visit Functional Nondenominational Program at [facility] [address] [place] [address] Ludwig Schumacher Jr., PT Radiculopathy of lumbar [...] Notes * Ludwig Schumacher Jr., PT - 01/16/2024 8:00 AM EDT Functional Nondenominational Program (Day 8) Physical Therapy Mid-Way Testing Personal Function 3 Month Goals Vocational: None identified: flexible schedule, able to take stretch breaks, has a sit stand desk Recreational: Be able to hike, be able to kayak on the [place] ; be able to travel ([place]) including walking 3-5 miles. Be able to sit in car for extended period of time. 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 and load bedspread cutter; Be able to chop, lift and carry wood; Subjective: Mr. Judge returns today for a scheduled follow up appointment with FRP. Vadim reportshe is feeling good overall. Vadim reported feeling more confident and stronger and his pain is less intense then when he started the program. Vadim reported he is sleeping better. Objective: Endurance and Flexibility Test Results: Reported Tolerance (minutes) First Day of FRP: Mid-Way of FRP: Sittin 45 Standin 60 Walkin 30 Flexibility (degrees): Neck: First Day of FRP: Mid-Way of FRP: Bending Forward: 65 65 Bending Back: 55 55 Turning Right: 75 80 Turning Left: 80 80 Tilting Right: 40 50 Tilting Left: 40 45 Low Back: First Day of FRP: Mid-Way of FRP: Bending Forward: 60 75 Bending Back: 15 20 Straight Leg Raise Right: 50 75 Straight Leg Raise Left: 50 75 Straight Leg Raise Pelvic: Treadmill First Day of FRP: Mid-Way of FRP: MET Level: Heart Rate: MET Level: Heart Rate: Treadmill Endurance: 7 150 Reason for Stopping (if applicable): L leg pain radiating up to back Sensation: Light touch reduced L lateral lower leg, . Reflexes Right Left Tricep normal normal Brachioradialis normal normal Patella normal normal Achilles normal normal AROM (degrees) shoulder flexion right WNL, left WNL. UE Strength Right Left Shoulder abduction 5/5 5/5 Shoulder ER 5/5 5/5 Elbow flexion 5/5 5/5 Elbow extension 5/5 5/5 Wrist ulnar deviation 55/5 5/5 Finger abduction 5/5 5/5 LE Strength Right Left Hip flexion 5/5 5/5 Knee extension 5/5 5/5 Dorsiflexion 5/5 5/5 Hallux extension 5/5 5/5 Plantarflexion 5/5 5/5 Neural tension screening: Seated straight leg raise right neg, left neg. Assessment: Vadim is progressing as planned with quota based training. He is also making modest progress with ROM and endurance over the first 8 days of program which bodes well for long-term improvement over 4 week program and beyond. He has built considerable tolerance with weight training as wellas evidenced by OT assessment. Plan: Return for follow up with FRP per protocol. Length of visit: Participated in program physical activity from 8:00 a.m. through 12:00 a.m. today.During that time, a total of 30 minutes was spent to develop, monitor, and progress individualized physical therapy strategies. documented in this encounter Plan of Treatment Upcoming Encounters Date Type Department Care Team (Late st Contact Info) Description 05/05/2024 8:00 AM EST Office Visit Physical Therapy at [facility] [address] [place] [address] Kierra Moreno, PT [facility] PHYSICAL MEDICINE & [place] [address] 05/05/2024 9:00 AM EST Office Visit Functional Nondenominational Program at [facility] [address] [place] [address] iMreya Nicole OT 05/19/2024 8:00 AM EST Office Visit Physical Therapy at [facility] [address] [place] [address] Kierra Moreno, PT [facility] PHYSICAL BENY & [place] [address] 06/02/2024 9:00 AM EST Office Visit Physical Therapy at [facility] [address] [place] [address] Kierra Moreno, PT [facility] PHYSICAL MEDICINE & [place] [address] documented as of this encounter Visit Diagnoses Diagnosis Radiculopathy of lumbar region Thoracic or lumbosacral neuritis or radiculitis, unspecified documented in this encounter Care Teams Peoplesoft Hcm Consultant Relationship Specialty Start Date End Date Sb Jones PA [address] [place] [address] PCP - General Internal Medicine 05/27/23 documented as of this encounter
--- OUTSIDE RECORDS SUMMARY | 2024-03-25 13:59 | XMS_ITS | Encounter Summary ---
Author Organization Formerly [facility] [place] [address] Care Team Providers Care Shake Packer Name Role Phone Sb Jones Primary Care Provider [phone] Reason for Visit * Reason Comments Back Pain * Consultation (Routine) - Authorized Specialty Diagnoses / Procedures Referred By Contac t Referred To Contact Orthopaedics Diagnoses Radiculopathy of lumbar region Pelvic pain in male Jennifer Vang APRN [facility] [place] [address] [facility] [address] [place] [address] Referral ID Status Reason Start Date Expiration Date Visits Requested Visits Authorized [id number] Authorized Functional Restorative Program 11/12/2023 11/11/2024 54 53 Encounter Details Date Type Department Care Team (Latest Contact Info) Description 01/16/2024 11:00 AM EDT Office Visit Functional Scientologist Program at [facility] [address] [place] [address] Mireya Nicole, OT Radiculopathy of lumbar region [...] Progress Notes * Mireya Nicole OT - 01/16/2024 11:00 AM EDT FRP Occupational Therapy Note [place] Testing [facility] Day 8 Protocol Subjective: Mr. Judge returns today for a scheduled follow up appointment with [facility]. He reports feeling motivated with the support of the program and group dynamics. He expressed benefiting from the feedback from providers to understand their level of participation in functional tasks. Mr. Judge expressed wanting to increase physical demands in cardio and carrying functional activities to mod el real world tasks. Mr. Judge reflected on this past Saturday as a more challenging day and a moment that motivated progress. Objective: Refer to [facility] protocol for details and explanation of each activity. Mr. Judge participated in the following activities: Functional Therapy: 1. AM Session of functional conditioning ( X ) Completed ( ) Not Completed 2. PM Session of functional conditioning ( X ) Completed ( ) Not Completed Lifting re-evaluation Functional Strength Testing: Day 1 Day 8 Repetitive Floor to Waist (PILE) 20 50 Instructed in 15 minutes of mindfulness meditation activity focusing on What to do About Pain. Participated in 15 minutes of unguarded beach ball volley ball activity . Individualized Treatment: Increased resistance levels of functional conditioning exercises according to personal recovery goals. Completed midway functional strength testing. Used graphs as a visual aide to discuss daily progression of conditioning exercises toward 4 week strength training goals. Will continue to use graphs to map daily progress toward these goals. Met to further discuss and clarify functional recovery goals. We have agreed to set 45 lbs as a strength training goal for frequent waist to shoulder lifting, 35 lbs as a strength training goal for frequent floor to waist and 75 lbs as a occasional lifting goal as he would like to be able to meet his vocational and functional goals. Mr. Judge participated actively in progression of function. Assessment: Mr. Judge is progressing according to [facility] protocol and his functional goals as notedin initial OT evaluation report on Day 1. Objective testing today confirms he has made substantial gains thus far in terms of his physical capacities. Challenges continue with LE weakness and lower back pain following participation in activities with increased physical demands such as straight leg and squat crate lifting. Mr. Judge presents with good insight into their participation with functional activities, specifically in regard to implementation of pacing strategies via breathing techniques, counteractive stretches, and energy conservation. Plan: Return for follow up with [facility] per protocol. Length of Treatment: Mr. Judge participated in program activities from 8:00 a.m. through 2:45 p.m. today. A total of 45 minutes were spent during that time to implement individualized occupationaltherapy strategies. Care was provided by both an Occupational Therapist and Jigger Operator, SHEREE Russell An occupational therapy student was present for [...] hike, be able to kayak on the [place] ; be able to travel ([place]) including walking 3-5 miles. Be able to sit in car for extended period of time. 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 and load product safety head; Be able to chop, lift and carry wood; documented in this encounter Plan of Treatment Upcoming Encounters Date Type Department Care Team (Late st Contact Info) Description 05/05/2024 8:00 AM EST Office Visit Physical Therapy at [facility] [address] [place] [address] Kierra Moreno, PT [facility] PHYSICAL MEDICINE & [place] [address] 05/05/2024 9:00 AM EST Office Visit Functional Scientologist Program at [facility] [address] [place] [address] Mireya Nicole OT 05/19/2024 8:00 AM EST Office Visit Physical Therapy at [facility] [address] [place] [address] Kierra Moreno, PT [facility] PHYSICAL MEDICINE & [place] [address] 06/02/2024 9:00 AM EST Office Visit Physical Therapy at [address] [place] [address] Kierra Moreno, PT [facility] PHYSICAL MEDICINE & [place] [address] documented as of this encounter Visit Diagnoses Diagnosis Radiculopathy of lumbar region Thoracic or lumbosacral neuritis or radiculitis, unspecified documented in this encounter Care Teams Shake Packer Relationship Specialty Start Date End Date Sb Jones PA [address] [place] [address] PCP - General Internal Medicine 05/27/23 documented as of this encounter
--- OUTSIDE RECORDS SUMMARY | 2024-03-25 13:59 | XMS_ITS | Encounter Summary ---
Author Organization [facility] Address [facility] [place] [address] Care Team Providers Care Tar Heel Name Role Phone Sb Jones Primary Care Provider [phone] Encounter Details Date Type Department Care Team (Latest Contact Info) Description 01/23/2024 Travel Social History Tobacco Use Types Packs/Day [...] AM EST Office Visit Physical Therapy at [facility] [address] [place] [address] Kierra Moreno, PT [facility] PHYSICAL MEDICINE & [place] [address] 05/05/2024 9:00 AM EST Office Visit Functional Restorationist Program at [facility] [address] [place] [address] Mireya Nicole, OT 05/19/2024 8:00 AM EST Office Visit Physical Therapy at [facility] [address] [place] [address] Kierra Moreno, PT [facility] PHYSICAL MEDICINE & [place] [address] 06/02/2024 9:00 AM EST Office Visit Physical Therapy at [facility] [address] [place] [address] Kierra Moreno, PT [facility] PHYSICAL MEDICINE & [place] [address] documented as of this encounter Visit Diagnoses Not on filedocumented in this encounter Care Teams Tar Heel Relationship Specialty Start Date End Date Sb Jones PA [address] [facility] [address] [place] [address] PCP - General Internal Medicine 05/27/23 documented as of this encounter
--- OUTSIDE RECORDS SUMMARY | 2024-03-25 13:59 | XMS_ITS | Encounter Summary ---
Author Organization Formerly [facility] [place] [address] Care Team Providers Care Major Account Representative Name Role Phone Sb Jones Primary Care Provider [phone] Reason for Visit * Consultation (Routine) - Authorized Specialty Diagnoses / Procedures Referred By Contac t Referred To Contact Orthopaedics Diagnoses Radiculopathy of lumbar region Pelvic pain in male Jennifer Vang APRN [facility] [place] [address] [facility] [address] [place] [address] Referral ID Status Reason Start Date Expiration Date Visits Requested Visits Authorized [id number] Authorized Functional Restorative Program 11/12/2023 11/11/2024 54 53 Encounter Details Date Type Department Care Team (Late st Contact Info) Description 01/13/2024 8:00 AM EDT Office Visit Functional Hindu Program at [facility] [address] [place] [address] Ludwig Schumacher Jr., PT Radiculopathy of lumbar [...] Therapy - Ludwig Schumacher Jr., PT - 01/13/2024 8:00 AM EDT [facility] Day 5 Protocol Subjective: Vadim returns today for a scheduled follow up appointment with [facility]. Vadim stated his Lower Back is feeling Pretty Good, just really Sore. Objectives and Treatment Received Exercises performed as [...] tolerance Cardio performed today: 10 Mins on Elliptical See [facility] flowsheet for details on time held and weights completed Patient participated in all exercises. Assessment: Vadim returns for follow up visit. He was able to progress weights appropriately, while successfully maintaining form. Cues were needed intermittently for maintenance of posture during exercise and avoid compensation. He actively participated as a member of the group throughout session. Plan: Return for follow up with [facility] per protocol. 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; Be able to chop, lift and carry wood; documented in this encounter Plan of Treatment Upcoming Encounters Date Type Department Care Team (Late st Contact Info) Description 05/05/2024 8:00 AM EST Office Visit Physical Therapy at [facility] [address] [place] [address] Kierra Moreno, PT [facility] PHYSICAL MEDICINE & [place] [address] 05/05/2024 9:00 AM EST Office Visit Functional Hindu Program at [facility] [address] [place] [address] Mireya Nicole, OT 05/19/2024 8:00 AM EST Office Visit Physical Therapy at [facility] [address] [place] [address] Kierra Moreno, PT [facility] PHYSICAL MEDICINE & [place] [address] 06/02/2024 9:00 AM EST Office Visit Physical Therapy at [facility] [address] [place] [address] Kierra Moreno, PT [facility] PHYSICAL MEDICINE & [place] [address] documented as of this encounter Visit Diagnoses Diagnosis Radiculopathy of lumbar region Thoracic or lumbosacral neuritis or radiculitis, unspecified documented in this encounter Care Teams Major Account Representative Relationship Specialty Start Date End Date Sb Jones PA [address] [place] [address] PCP - General Internal Medicine 05/27/23 documented as of this encounter
--- OUTSIDE RECORDS SUMMARY | 2024-03-25 13:59 | XMS_ITS | Encounter Summary ---
Author Organization [facility] [place] [address] Care Team Providers Care Lock Installer Name Role Phone Sb Jones Primary Care Provider [phone] Reason for Visit * Reason Comments Back Pain * Consultation (Routine) - Authorized Specialty Diagnoses / Procedures Referred By Contac t Referred To Contact Orthopaedics Diagnoses Radiculopathy of lumbar region Pelvic pain in male Jennifer Vang APRN [facility] [place] [address] [facility] [address] [place] [address] Referral ID Status Reason Start Date Expiration Date Visits Requested Visits Authorized [id number] Authorized Functional Restorative Program 11/12/2023 11/11/2024 54 53 Encounter Details Date Type Department Care Team (Latest Contact Info) Description 01/15/2024 11:00 AM EDT Office Visit Functional Latter Day Program at [facility] [address] [place] [address] Mireya Nicole, OT Radiculopathy of lumbar region [...] Treatment - Therapy - Kenyatta Maloney - 01/15/2024 11:00 AM EDT I was present throughout today's treatment/evaluation of the patient with my student participating.Following treatment I've reviewed, discussed and provided feedback to my occupational therapy student in which updates to the note were made. I concur with the note as written and recommend continuing treatment per Plan of Care as written. Mireya Nciole, OTR/L FRP Occupational Therapy Note [facility] Day 7 Protocol Subjective: Mr. uJdge returns today for a scheduled follow up appointment with [facility]. He reports that yesterday after program, he heard an individual yelling for help and had to navigate the [place]ante to assist the individual prior to EMS arriving- resulting in additional tenderness LE and lower back pain. Objective: Refer to [facility] protocol for details and explanation [...] 2. PM Session of unguarded activity and mindfulnes ( X ) Completed ( ) Not Completed Instructed in 8 minutes of mindfulness meditation activity focusing on body scan techniques. Participated in 30 minutes of unguarded beach ball volley ball and marsh bag toss activity. Individualized Treatment: Increased resistance levels of [...] actively in progression of function. He demonstrates fair independent implementation of counteractive stretches toenhance participation in functional activities with increased physical demands. Mr. Judge benefited from alternating waist to shoulder and floor to waist lifts. They demonstrate good postioning for functional activities with increased physical demands such as the push/pull and crate lifting. was able to increase their frequency of reaching, bending and lunging related to unguardedactivity participation. Challenges continue with lower back and LE weakness, although this is expected to improve with continued carry over of pacing strategies. He actively participated with initiation of training components. They were supportive of the other members of the group throughout the session. Plan: Return for follow up with FRP per protocol. Continue training according to planned progressions towards functional recovery goals. Length of Treatment: Mr. Judge participated in program activities from 11:00 a.m. through 2:10 p.m. today as part of group intervention [...] the [place] ; be able to travel ([place]) including walking 3-5 miles. Be able to sit in car for extended period of time. 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 and load enginehouse brakeman; Be able to chop, lift and carry wood; documented in this encounter Plan of Treatment Upcoming Encounters Date Type Department Care Team (Late st Contact Info) Description 05/05/2024 8:00 AM EST Office Visit Physical Therapy at [facility] [address] [place] [address] Kierra Moreno, PT [facility] PHYSICAL MEDICINE [place] [address] 05/05/2024 9:00 AM EST Office Visit Functional Latter Day Program at [facility] [address] [place] [address] Mireya Nicole, OT 05/19/2024 8:00 AM EST Office Visit Physical Therapy at [facility] [address] [place] [address] Kierra Moreno, PT [facility] PHYSICAL MEDICINE [place] [address] 06/02/2024 9:00 AM EST Office Visit Physical Therapy at [facility] [address] [place] [address] Kierra Moreno, PT [facility] PHYSICAL MEDICINE & [place] [address] documented as of this encounter Visit Diagnoses Diagnosis Radiculopathy of lumbar region Thoracic or lumbosacral neuritis or radiculitis, unspecified documented in this encounter Care Teams Lock Installer Relationship Specialty Start Date End Date Sb Jones PA [address] [place] [address] PCP - General Internal Medicine 05/27/23 documented as of this encounter
--- OUTSIDE RECORDS SUMMARY | 2024-03-25 13:59 | XMS_ITS | Encounter Summary ---
Author Organization [facility] [place] [address] Care Team Providers Care Tower Watchman Name Role Phone Sb Jones Primary Care Provider [phone] Reason for Visit * Consultation (Routine) - Authorized Specialty Diagnoses / Procedures Referred By Contac t Referred To Contact Orthopaedics Diagnoses Radiculopathy of lumbar region Pelvic pain in male Jennifer Vang APRN [facility] [place] [address] [facility] [address] [place] [address] Referral ID Status Reason Start Date Expiration Date Visits Requested Visits Authorized [id number] Authorized Functional Restorative Program 11/12/2023 11/11/2024 54 53 Encounter Details Date Type Department Care Team (Late st Contact Info) Description 01/20/2024 8:00 AM EDT Office Visit Functional Confucianist Program at [facility] [address] [place] [phone] Ludwig Schumacher Jr., PT Radiculopathy of lumbar [...] Therapy - Ludwig Schumacher Jr., PT - 01/20/2024 8:00 AM EDT FRP Physical Therapy Note [facility] Day 10 Protocol Subjective: Vadim returns today for a scheduled follow up appointment with [facility]. Vadim stated he is feeling lower back soreness & stiffness. Objectives and Treatment Received Exercises performed as [...] tolerance Cardio performed today: 10 Mins on Bike See [facility] flowsheet for details on time held and weights completed Patient participated in all exercises. Assessment: Vadim returns for follow up visit. He was able to progress weights appropriately, while successfully maintaining form. Cues were needed intermittently for maintenance of posture during exercise and avoid compensation. He actively participated as a member of the group throughout session. Plan: Return for follow up with [facility] per protocol. 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; Be able to chop, lift and carry wood; documented in this encounter Plan of Treatment Upcoming Encounters Date Type Department Care Team (Late st Contact Info) Description 05/05/2024 8:00 AM EST Office Visit Physical Therapy at [facility] [address] [place] [address] Kierra Moreno, PT [facility] PHYSICAL MEDICINE & [place] [address] 05/05/2024 9:00 AM EST Office Visit Functional Confucianist Program at [facility] [address] [place] [address] Mireya Nicole, OT 05/19/2024 8:00 AM EST Office Visit Physical Therapy at [facility] [address] [place] [address] Kierra Moreno, PT [facility] PHYSICAL MEDICINE & [place] [address] 06/02/2024 9:00 AM EST Office Visit Physical Therapy at [facility] [address] [place] [address] Kierra Moreno, PT [facility] PHYSICAL MEDICINE & [place] [address] documented as of this encounter Visit Diagnoses Diagnosis Radiculopathy of lumbar region Thoracic or lumbosacral neuritis or radiculitis, unspecified documented in this encounter Care Teams Tower Watchman Relationship Specialty Start Date End Date Sb Jones PA [address] [place] [address] PCP - General Internal Medicine 05/27/23 documented as of this encounter
--- OUTSIDE RECORDS SUMMARY | 2024-03-25 13:59 | XMS_ITS | Encounter Summary ---
Author Organization [facility] [place] [address] Care Team Providers Care Crane Mechanic Name Role Phone Sb Jones Primary Care Provider [phone] Reason for Visit * Consultation (Routine) - Authorized Specialty Diagnoses / Procedures Referred By Contac t Referred To Contact Orthopaedics Diagnoses Radiculopathy of lumbar region Pelvic pain in male Jennifer Vang APRN [facility] [place] [address] [facility] [address] [place] [address] Referral ID Status Reason Start Date Expiration Date Visits Requested Visits Authorized [id number] Authorized Functional Restorative Program 11/12/2023 11/11/2024 54 53 Encounter Details Date Type Department Care Team (Latest Contact Info) Description 01/20/2024 10:00 AM EDT Office [facility] [address] [place] [phone] Lacey Gleason RETIREMENT ACTUARY [facility] [place] [address] Radiculopathy of lumbar region; Pelvic pain in [...] Progress Notes * Lacey Gleason APRN - 01/20/2024 10:00 AM EDT [facility], a Service of [facility] Functional Mandaen Program Neuroscience Education Series Patient Name: Som Judge Date: 01/20/2024 Topic: Chronic Pain & Sleep, Overview of Cognitive Behavioral Insomnia Treatment 60 minute Health and Behavior Intervention Today's group focused on teaching patients about the importance of improving sleep in order to better manage and cope with pain. Discussion included education about the causes of poor sleep and insomnia, the bidirectional effect between sleep and pain, and reviewing skills related to improved sleepquantity and quality. Basic sleep drive, architecture, and structure were reviewed, and specific recommendations made for improving sleep. The rationale and process of CBT-I was reviewed and group encouraged to focus on improving sleep as poole tool for managing pain and mood. The group was encouraged to ask questions throughout and were provided handouts of the topic covered. Som appears to be benefiting from this series of pain education session as evidenced by brighter affect, appearance of improved mood, greater participation, and observed reduction in pain behaviors. Diagnosis: 1. Radiculopathy of lumbar region 2. Pelvic pain in male documented in this encounter Plan of Treatment Upcoming Encounters Date Type Department Care Team (Late st Contact Info) Description 05/05/2024 8:00 AM EST [facility] [address] [place] [address] Kierra Moreno, PT [facility] PHYSICAL MEDICINE & [place] [address] 05/05/2024 9:00 AM EST Office Visit Functional Mandaen [facility] [address] [place] [address] Mireya Nicole, OT 05/19/2024 8:00 AM EST Office Visit [facility] [address] [place] [address] Kierra Moreno, PT [facility] PHYSICAL MEDICINE [place] [address] 06/02/2024 9:00 AM EST Office Visit Physical Therapy at [address] [place] [address] Kierra Moreno, PT [facility] PHYSICAL MEDICINE [place] [address] documented as of this encounter Visit Diagnoses Diagnosis Radiculopathy of lumbar region Thoracic or lumbosacral neuritis or radiculitis, unspecified Pelvic pain in male Abdominal pain, other specified site documented in this encounter Care Teams Crane Mechanic Relationship Specialty Start Date End Date Sb Jones PA [address] [facility] [address] [place] [address] PCP - General Internal Medicine 05/27/23 documented as of this encounter
--- OUTSIDE RECORDS SUMMARY | 2024-03-25 13:59 | XMS_ITS | Encounter Summary ---
Author Organization [facility] [place] [address] Care Team Providers Care Senior Ux Developer Name Role Phone Sb Jones Primary Care Provider [phone] Reason for Visit * Consultation (Routine) - Authorized Specialty Diagnoses / Procedures Referred By Contac t Referred To Contact Orthopaedics Diagnoses Radiculopathy of lumbar region Pelvic pain in male Jennifer Vang APRN [facility] [place] [address] [facility] [address] [place] [address] Referral ID Status Reason Start Date Expiration Date Visits Requested Visits Authorized [id number] Authorized Functional Restorative Program 11/12/2023 11/11/2024 54 53 Encounter Details Date Type Department Care Team (Latest Contact Info) Description 01/08/2024 8:45 AM EDT Office Visit Functional Druze Program at [facility] [address] [place] [phone] Lacey Gleason CLOTHES DRIER ASSEMBLER [facility] [place] [address] Radiculopathy of lumbar region; Pelvic pain in [...] Progress Notes * Lacey Gleason APRN - 01/08/2024 8:45 AM EDT 01/07/2024 [id number] Som Judge FUNCTIONAL QUAKER PROGRAM TRAINING LECTURE Chief complaint requiring rehabilitation: back and leg pain Title: Goal Setting Presenter: Lacey Gleason, MSN, CLOTHES DRIER ASSEMBLER This is a one hour lecture and interactive group session. Individuals??? responses to their initialgoal setting questionnaires are discussed with special attention to the diversity of their pain andfunctional goals and priorities. The complex relationship between pain and function is discussed inthe context of underlying beliefs and expectations and how these may dramatically affect recovery and the individuals??? ability to get what they want from treatment. Practical application of these issues to the individual???s situation is stressed. Lecture Time: 60 min. documented in this encounter Plan of Treatment Upcoming Encounters Date Type Department Care Team (Late st Contact Info) Description 05/05/2024 8:00 AM EST Office Visit Physical Therapy at [facility] [address] [place] [address] Kierra Moreno, PT [facility] PHYSICAL [place] [address] 05/05/2024 9:00 AM EST Office Visit Functional Druze Program at [facility] [address] [place] [address] Mireya Nicole, OT 05/19/2024 8:00 AM EST Office Visit Physical Therapy at [facility] [address] [place] [address] Kierra Moreno, PT [facility] PHYSICAL [facility] & [place] [address] 06/02/2024 9:00 AM EST Office Visit Physical Therapy at [facility] [address] [place] [address] Kierra Moreno, PT [facility] PHYSICAL MEDICINE & [place] [address] documented as of this encounter Visit Diagnoses Diagnosis Radiculopathy of lumbar region Thoracic or lumbosacral neuritis or radiculitis, unspecified Pelvic pain in male Abdominal pain, other specified site documented in this encounter Care Teams Senior Ux Developer Relationship Specialty Start Date End Date Sb Jones PA [address] [place] [address] PCP - General Internal Medicine 05/27/23 documented as of this encounter
--- OUTSIDE RECORDS SUMMARY | 2024-03-25 13:59 | XMS_ITS | Encounter Summary ---
Author Organization [facility] [place] [address] Care Team Providers Care Dental Insurance Biller Name Role Phone Sb Jones Primary Care Provider [phone] Reason for Visit * Consultation (Routine) - Authorized Specialty Diagnoses / Procedures Referred By Contac t Referred To Contact Orthopaedics Diagnoses Radiculopathy of lumbar region Pelvic pain in male Jennifer Vang APRN [facility] [place] [address] [facility] [address] [place] [address] Referral ID Status Reason Start Date Expiration Date Visits Requested Visits Authorized [id number] Authorized Functional Restorative Program 11/12/2023 11/11/2024 [id number] Encounter Details Date Type Department Care Team (Latest Contact Info) Description 01/10/2024 9:00 AM EDT Office Visit Functional Confucianist Program at [facility] [address] [place] [id number] Jennifer Vang BATON TEACHER [facility] [place] [address] Radiculopathy of lumbar region Social History Tobacco [...] as of this encounter Progress Notes * VangJennifer, BATON TEACHER - 01/10/2024 9:00 AM EDT Images from the original note were not included. [facility] Functional Confucianist Program Admission Staff Meeting 01/09/2024 I, Cortney Hawk, am compiling the information for Jennifer Vang APRN, to discuss and review with the patient. I met with Mr. Judge for the entire 30 minutes today to discuss his admission and progress in the Functional Confucianist Program as written in this note. We discussed medical progress, imaging, surgical decision making, current pain and functional status, compared that status to personal recovery goals, and established the plan of care accordingly as below. The chief complaint requiring rehabilitation is low back pain radiating. He has a long standing history of back pain, with more neurological symptoms including pelvic girdle, abdomen pain,testicular pain, GI symptoms of constipation and diarrhea and lower extremity numbness and tingling. Anatomic diagnoses have included lumbar radiculopathy. Prior treatments included yoga, THC/CBD, Acetaminophen,Gabapentin, multiple injections, last LESI in October 2023, physical therapy, stretches. Further diagnostic testing is not planned. Additional medical procedures are not planned. Sleep evaluation completed in December , sleep study planned for the future. Activity limiting health problems include history of headaches due to stress; gastro issues due to stress, right knee reconstruction, bilateral shoulder reconstructions. 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 Results of the Touch Pad Questionnaires You Filled out: 01/07/2024 FRP Discharge Summary INSOMNIA SEVERITY INDEX (0-28) 12 (Clinically significant insomnia) PHQ9 Total Score (Range 0-27) 23 (Severe Depression) Central Sensitization Inventory (0-60+) 59 (Severe) PDQ Total Score (0-150) 87 (Severe) GAD7 Total Score (Range 0-21) 2 (Minimal Anxiety) Facs Scoring (0-100) 64 (Severe) Visual Analog Scale (VAS) for Pain Score (0-10) 5.6 Pain over the last week rating score (0-10) 5.43 Title Endurance and Flexibility Test Results: Reported [...] L leg pain radiating up to back FRP OT Objective Measures Physical Capacity Test Results: Lifting: (pounds/heart rate) First Day of FRP End of Program 1 Month Follow-Up 3 Month Follow-Up Repetitive Floor to Waist 20/123 Repetitive Waist to Shoulder 15/108 1-Time Maximum 25 2-Handed Carry - 50 ft 10 Work Demand Level Light Your Functional Goals: Functional Goals- First Day of FRP: Progress Toward Goals- End of FRP: Progress Toward Goals- 1 Month Follow-up: Progress Toward Goals- 3 Month Follow-up (optional): Vocational: Being able to sit for 60-90 minutes Being able to lift, carry, and transport water jug (45lbs) Recreational: Be able to hike (uneven terrain, ascent above 5%, 2-3 miles) Be able to Kayak ( getting in/out, dragging the kayak for .5 mile at 90lbs, twisting motion during paddling) Be able to sit in a car for an extended period of time (sitting for extended periods of time), Be able to travel, ([place]) including walking 3-5 miles Daily Living: Be able to do yard work ( lift/carry garbage, slight forward bend) Be able to do laundry including unloading machines, transferring clothes to dryer; unload and load 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 groceries (slight forward bend) Be able to lift and carry groceries into the house; lifting and carryings items (greater than 10lbs) Be able to chop, lift and carry wood Lifting Goal: 75 Work Status: Day 1: Working 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 Cc: Som Judge [address] [facility] [id number] [facility] [address] [place] [address] FUNCTIONAL NONDENOMINATIONAL PROGRAM (FRP) PROTOCOL DESCRIPTION IN ORDER TO MAINTAIN APPROPRIATE SOCIAL DISTANCING DUE TO THE COVID-19 PANDEMIC, THE PROGRAM WILL BE A HYBRID MODEL OF ON-SITE DAYS WELL PARTICIPATION VIA TELEHEALTH SERVICES. NEED FOR ON-SITE VS. TELEHEALTH TREATMENT WILL BE DETERMINED BASED ON THE # OF PARTICIPANTS AND THE VARIED NEED FOR SPECIFIC ACCESS TO FRP EQUIPMENT. THE BASIC STRUCTURE AND COMPONENTS EACH DAY WILL BE CONSISTENT REGARDLESS OF LOCATION AND FULL PARTICIPATION WILL BE EXPECTED FROM ALL. DAY 1 TESTING The first day of FRP consists of testing by multiple disciplines to measure baseline values including: Visual Analog Pain Scale, FACS, CSI, AMINATA-7, PDQ, VIOLA, PHQ-9, PCL-5, Sitting Standing & Walking tolerance, Range of Motion measured in degrees using an inclinometer, MET Level, Lifting capacity(occasional & frequent), Push/Pull, Carry-2 handed 50 ft, DOT level. The Floyd-Paul Reading Test may also be utilized as needed to provide information in the most appropriate format. Day 1 testing includes: * Physical Therapy: Functional Assessment (PT section) * Occupational Therapy: Functional Assessment (OT section) * Touch Pad Survey for questionnaires * Medical Consult with BETO (Associate Pain Provider: KAVITHA GARCIA) or MD Medical Provider STRETCH, STRENGTH, & AEROBICS 1 hour daily with 2 [facility]P staff members (combination of: DPT,OT, TRANSITION ASSISTANT/BENTLEY) Low impact aerobic conditioning and strengthening class that alternates between floor aerobics, step aerobics, yoga, exercise ball training, supine/prone/side- lying strengthening and stretching. Thisis the first class of every day so that patients begin the day with a warm-up of low-impact and lowintensity conditioning. The goal of the class is to introduce and encourage different types of cardiovascular conditioning and strengthening. STRENGTHENING & CARDIOVASCULAR EXERCISE 1 hour daily with 2 [facility] staff members (DPT & TRANSITION ASSISTANT) The physical therapy staff instructs, modifies, and supervises upper extremity, lower extremity, and core strengthening exercises focused on regaining total body fitness. These exercises are completed by all patients and include free weights, weight machines, general upper and lower extremity exercise, and specific spinal flexor and extensor strengthening. Available dumbbells include 1-50 lbs. The exercises are listed in the training record and can be changed for each program and/or individualized for each patient. Patients are methodically encouraged to increase their repetitions, sets or weight for their exercises daily. The therapists will recommend an increase in 1 set, or 10 repetitions, or 1-20 lbs in weight. This will be decided by the therapists daily based on the patient's ability to complete the current exercise prescription, exercise mechanics, tolerance level, or current relevant physical complaints. Cardiovascular conditioning includes at least 3-15 minutes of one activity to be completed in 1-4 sessions. [facility] patients seldom have the conditioning to complete 15 minutes of one activity at a sufficient intensity to provoke a cardiovascular training response. Therefore, [facility] utilizes multiple sessions to reach cardiovascular goals. Multiple types of cardiovascular equipment will be used which include: stationary bike, elliptical machine, treadmill, outdoor walks and stairwells. Exercise grades, intensity, and times are monitored and recorded. Perceived exertion or heart rate may also be usedto rate exercise intensity. Intensity, incline, speed, and/or time will be increased daily. However, walking speed will be initially accelerated and emphasized. A normal walking speed of 3.5mph is a common goal of patients before the end of a program. Self-Care (sometimes ???Home Exercise?? ) Plans are individualized for specific chief complaints and any secondary musculoskeletal and/or cardiovascular concerns. They include cardiovascular training, strengthening, stretching (ROM activities when needed) and mindfulness/relaxation training. These programs are to be completed by patients during their time away from [facility] (evenings, weekends - off days as necessary). Throughout the course of treatment, patients are educated and guided in exercise decision-making principles. This education takes place throughout the treatment sessions, and is progressive for each patient at the pace that is appropriate for them. The goal is that, by program completion, they willbe able to make alterations/corrections as required independently so as to maintain the safety and effectiveness of their therapeutic exercises. By completion of the program, the patient will have an individualized therapeutic exercise Self Care Plan composed of 4 parts (cardiovascular training, strengthening, stretching and mindfulness/relaxation). It will be designed to maintain or progress gains in their preferred setting (home or gym) so they can benefit from continued functional recovery and pain relief on their own. Development of a ???Flare-Up Plan?? with the team is also included as part of the Self-Care plan prior to completion. Education will be provided throughout the program sessions on the natural history of chronic pain and the expectation that flare-ups will occur as part of this natural history. Theplan will include ways to distinguish chronic pain from acute pain and to determine whether or not medical intervention is necessary. Also included are personalized mechanical strategies and pain neuroscience strategies that can be used to manage chronic pain symptoms. FUNCTIONAL CONDITIONING 2 hours (over 2 sessions - AM and PM) with 2 [facility] staff members (OT, BENTLEY/TRANSITION ASSISTANT, occasionally DPT) Work Conditioning: Involves progressive and graded activities used at work, home and recreation. These activities include 1. Lifting: starts at roughly 1/3 of ???frequent?? testing weight and increases in regular intervals each day until goal weight is reached. * Frequent -Floor to waist - 20 X per session; 1-2 sessions per day * Frequent - Waist to shoulder -20 X per session; 1-2 sessions per day * Occasional Lifting- 5X per session; 1-2 sessions per day 2. Carrying - 5-10 minutes - 1 and 2 handed approaches, increasing weight carried on a daily basis 3. Repetitive bending and reaching - up to 10 minutes - wearing hand weights to increase upper extremity strength and tolerance to bending. 4. Pushing and pulling sled -25 feet - either weight and repetitions increase daily 5. Lifting through ROM - increases in either repetition or weight daily During the work conditioning sessions, individuals are taught other strategies including pacing formanaging pain symptoms and when to utilize them most effectively. Sessions are designed to increasework capacity goals through both strengthening and exposure to the level identified in the Occupational Therapy initial note. Self Care Planning sessions are also conducted by the OT team, with focus on time management as well as location and resource planning. WALK and/or UNGUARDED ACTIVITIES, MINDFULNESS/RELAXATION TRAINING & STRETCHING 1 hour with 2 [facility] staff members (OT, BENTLEY/TRANSITION ASSISTANT, occasionally DPT) Walk: 2-5x/wk patients will walk for 15-30 minutes, starting on flat terrain with minimal inclines for less time. They are encouraged to increase their speed, and therefore, heart rate, each day at their own pace to ultimately increase their walking tolerance. As their tolerance progresses, walks will include more incline. Unguarded Activity: 2-5x/wk games will be utilized to increase cardiovascular fitness, strength, endurance and flexibility and to encourage spontaneous or quick movements. Games will be played for 15-30 minutes. Mindfulness/Relaxation Training: Daily - patients will participate in 10-30 minutes of education and practice including but not limited to the following mindfulness and relaxation techniques for painmanagement: breathing focus, body scan, walking meditation, guided imagery, progressive muscle relaxation. Stretching techniques that are taught include standing and mat-based approaches. INDIVIDUAL TIME 15-30 minutes of individual treatment time with the OT and DPT. MEDICAL APPOINTMENTS (Meeting with BETO/MD) Two 25 minute individual clinic visits with a medical provider to discuss progress, concerns and individuals status, goals, and plan. These happen in the first week of program to discuss overall plan, and at approximately the midway point of the program to discuss any concerns that may arise. Additionally, a 25 minute discharge clinic visit will happen on the final day of the program to summarizethe plan for the patient going forward, including the Self Prison Program, and any work plans ifapplicable. PAIN EDUCATION SERIES All discussions are approximately 1 hour and led by Occupational and Physical Therapy staff. The latest research shows that the more you know about pain and how it works, the better off you'llbe. This includes moving and functioning better, experiencing less pain, and having an increased ability and interest in healthy exercise and movement. This knowledge is essential to your recovery, and research has shown that anyone can understand it, so welcome to Pain Neuroscience. These group discussions are designed to educate patients on pain neuroscience, coping skills and how to manage pain stressors in their lives. All patients are encouraged to participate in the group discussion as they feel comfortable. The objective is to help patients understand that they are not alone in their feelings and pain situations. Group discussions allow connections to be made with the staff as well as other group members allowing a supportive environment for all. Topics covered will include: Introduction to basic pain neuroscience - Learn what is happening in your tissues, nerves, and brain to create pain. How do we know what we know about pain, and if we know so much - why are you stillin pain? This will explain some of the mysteries of pain. The Qyt-Hzyfsc-Kykkbh Model of Pain and Multidisciplinary Treatment - Understanding and treating pain from a comprehensive, multidisciplinary approach is the gold standard of care. Studies have shownthat understanding and viewing chronic pain though a biopsychosocial lens is a critical component of success in a program like this. Pain Control Skills - Learn how habitual thoughts, emotions, and behaviors can actually turn the volume up on pain and how techniques like breathing, relaxation response and mindfulness medication can turn the volume down. Sleep and Chronic Pain - If you're not moving and you're not sleeping, you're not going to feel better. Learn to improve sleep habits even if you still have pain. Pulling It All Together - How to maintain new habits at home, and how to manage relapses and flare-ups. MEDICAL PROVIDER DISCUSSIONS All discussions are 45 min-1 hour and are led by an MD/BETO Interactive group discussions are designed to educate, motivate, and empower the patients to self-manage their pain and accompanying medical co-morbidities. Topics covered: FUNCTIONAL NONDENOMINATIONAL & GOAL SETTING Interactive exercises to demonstrate the difficulties in assessing and understanding another person's pain. The learning model of reacting to pain by limiting activity is reviewed, leading to a discussion ofthe development of safe training methods that are gradually progressive and goal- and quota-based rather than symptom-reactive. Importance of maintaining physical gains after rehabilitation by committing to a more active lifestyle is stressed. The complex relationship between pain and function is discussed in the context of underlying beliefs and expectations and how these may dramatically affect recovery and the individuals' ability to get what they want from treatment. Practical application of these issues to the individual's situationis stressed. ANATOMY, IMAGING, SURGICAL DECISION MAKING, MEDICATIONS Topics covered: Importance of the History, Physical Examination, and Imaging studies. Solving the Mystery: Where is the Pain Coming From? Defines anatomy and possible pain generators in the back. Some thoughts and explanations for the failure to improve: What's known, what's not This also includes listing all the patients' current and prior chief complaint- related medications,placing each in its pharmacological category. The personal experiences of the patients in terms of side effects and benefits are reviewed and discussed with references to the biochemical and clinicaleffects of the drugs. The lack of curative impact of these medications is stressed. The difficulties in determining optimal doses for analgesics are discussed in the context of the varying needs of patients and regulatory issues involved. The importance of prescribing in the framework of functionalgoals is reviewed as opposed to focusing entirely on symptom relief. CHRONIC PAIN & THE NERVOUS SYSTEM Reviews basic neuro anatomy and the relationship between pain and cognitive states, as well as the concept of central sensitization. A discussion regarding coping skills such as meditation, mindfulness and cognitive restructuring is discussed. LIFESTYLE AND WELLNESS The purpose of this discussion is to identify modifiable and non-modifiable factors that influence health and wellness. Focus on defining wellness and health, discussing non-modifiable risk factors of morbidity and mortality vs. modifiable factors. Discussion of strategies for maximal management ofnon- modifiable factors. Includes diet, nutrition information, exercise recommendations, sleep and stress management. All participants encouraged to participate and share helpful coping strategies. SUPPLEMENTAL DISCUSSIONS by [facility] staff OT, BENTLEY/TRANSITION ASSISTANT, DPT, RECONCILING CLERK as needed COUNTERACTING STRAINS OF DAILY LIVING An introduction to mechanical self-care techniques, why they can be helpful and the best ways to use them on a daily basis. SELF CARE PLAN DEVELOPMENT A review of the different parts of the Self Care Plan, which include traditional exercises such as Strengthening, Stretching and Cardiovascular exercises, along with pain management techniques such as breathing and meditation, and a ???Flare-Up Plan?? to help manage pain on more challenging days. How to incorporate a Self Care Plan into your (busy) daily life when it feels overwhelming. What are the expected challenges and what options will you have? PACING STRATEGIES FOR CHRONIC PAIN Why people with chronic pain often get stuck in unhelpful cycles with pain management (the ???Downward Pain Spiral?? and ???Boom and Bust Cycle?? ) and how to use a time-based method rather than a symptom-focused method to manage pain. JOB HUNTING A review of job seeking skills and hints to use after an injury and rehabilitation. Includes topicssuch as employer's obligations, your obligations, vocational rehabilitation, resume and cover letter writing, application process and writing. There is also an extensive discussion of the Americans with Disabilities Act. WORKERS COMPENSATION & INSURANCE This will be provided asynchronously via telehealth recording. This lecture provides a detailed description of the benefits, known criteria, application and review process for (6) most common types of disability; Workers Compensation, Short term/Cryptologic Supervisor Disability, Social Security Disability, Tort/Liability, Program Technician [place], and Medicaid. During the course of the lecture patients are encouraged to share their concerns and questions as well as to elicit and dispel any myths, beliefs or assumptions they, their families, or others may have had about these resources. Further exploration of the often ensuing disappointments many patientshave when recognizing the limitations of the types of disabilities as well as exploration and re-framing of the potential opportunities. Concurrently, specifics of plateau (ie MMI or End Medical) for workers compensation as well as information on how impairment ratings are calculated are explored both to encourage patient planning as well as to begin to face these significant psychosocial stressors faced by patients as they end Functional Confucianist and come to plateau. Patients who are not workers compensation are also encouraged to participate in this conversation as part of a therapeutic review of understanding their fellow participants and the challenges faced by others. FUNCTIONAL NONDENOMINATIONAL PROGRAM (FRP) DAILY PROTOCOL OVERVIEW: FRP consists of 19* days of interdisciplinary treatment and patients are in the clinic each day from 8 am to 3 pm. Individual meeting times with DPT, OT, Medical Providers and Care Management occur at multiple points during the FRP. *Occasionally the # of program days may be changed to as few as 14 or as many as 20 due to staffinglimitations Functional Confucianist Protocol Day 1 - Testing PT Evaluation (45 minutes) OT Evaluation (45 minutes) BETO Evaluation (45 minutes) Care Management meeting as needed (30-45 minutes) Orientation and additional testing as needed (0.5-1 hour) Day 2 - Orientation Stretch, Strengthening and Aerobics Class (1 hour) Strengthening and Cardiovascular Exercise (1 hour) Functional Conditioning (1 hour) Pain Education/Medical Provider/Other Supplemental Discussion Topic (1 hour) Functional Conditioning (1 hour) Walk/Unguarded Activity, Mindfulness/Relaxation and Stretching (1 hour) Meeting with BETO (25 minutes) - happens within first 2-5 days of program Day 3 Stretch, Strengthening and Aerobics Class (1 hour) Strengthening and Cardiovascular Exercise (1 hour) Functional Conditioning (1 hour) Pain Education/Medical Provider/Other Supplemental Discussion Topic (1 hour) Functional Conditioning (1 hour) Walk/Unguarded Activity, Mindfulness/Relaxation and Stretching (1 hour) Day 4 Stretch, Strengthening and Aerobics Class (1 hour) Strengthening and Cardiovascular Exercise (1 hour) Functional Conditioning (1 hour) Pain Education/Medical Provider/Other Supplemental Discussion Topic (1 hour) Functional Conditioning (1 hour) Walk/Unguarded Activity, Mindfulness/Relaxation and Stretching (1 hour) Day 5 Stretch, Strengthening and Aerobics Class (1 hour) Strengthening and Cardiovascular Exercise (1 hour) Functional Conditioning (1 hour) Pain Education/Medical Provider/Other Supplemental Discussion Topic (1 hour) Functional Conditioning (1 hour) Walk/Unguarded Activity, Mindfulness/Relaxation and Stretching (1 hour) Day 6 Stretch, Strengthening and Aerobics Class (1 hour) Strengthening and Cardiovascular Exercise (1 hour) Functional Conditioning (1 hour) Pain Education/Medical Provider/Other Supplemental Discussion Topic (1 hour) Functional Conditioning (1 hour) Walk/Unguarded Activity, Mindfulness/Relaxation and Stretching (1 hour) Day 7 Stretch, Strengthening and Aerobics Class (1 hour) Strengthening and Cardiovascular Exercise (1 hour) Functional Conditioning (1 hour) Pain Education/Medical Provider/Other Supplemental Discussion Topic (1 hour) Functional Conditioning (1 hour) Walk/Unguarded Activity, Mindfulness/Relaxation and Stretching (1 hour) Day 8 Stretch, Strengthening and Aerobics Class (1 hour) Hutchinson Testing (60 min) Strengthening and Cardiovascular Exercise (30 minutes) Functional Conditioning (30 minutes) Pain Education/Medical Provider/Other Supplemental Discussion Topic (1 hour) Functional Conditioning (1 hour) Walk/Unguarded Activity, Mindfulness/Relaxation and Stretching (1 hour) Day 9 Stretch, Strengthening and Aerobics Class (1 hour) Strengthening and Cardiovascular Exercise (1 hour) Functional Conditioning (1 hour) Meeting with BETO (25 minutes) - Hutchinson review Pain Education/Medical Provider/Other Supplemental Discussion Topic (1 hour) Functional Conditioning (1 hour) Walk/Unguarded Activity, Mindfulness/Relaxation and Stretching (1 hour) Day 10 Stretch, Strengthening and Aerobics Class (1 hour) Strengthening and Cardiovascular Exercise (1 hour) Functional Conditioning (1 hour) Pain Education/Medical Provider/Other Supplemental Discussion Topic (1 hour) Functional Conditioning (1 hour) Walk/Unguarded Activity, Mindfulness/Relaxation and Stretching (1 hour) Day 11 Stretch, Strengthening and Aerobics Class (1 hour) Strengthening and Cardiovascular Exercise (1 hour) Functional Conditioning (1 hour) Pain Education/Medical Provider/Other Supplemental Discussion Topic (1 hour) Functional Conditioning (1 hour) Walk/Unguarded Activity, Mindfulness/Relaxation and Stretching (1 hour) Day 12 Stretch, Strengthening and Aerobics Class (1 hour) Strengthening and Cardiovascular Exercise (1 hour) Functional Conditioning (1 hour) Pain Education/Medical Provider/Other Supplemental Discussion Topic (1 hour) Functional Conditioning (1 hour) Walk/Unguarded Activity, Mindfulness/Relaxation and Stretching (1 hour) Day 13 Stretch, Strengthening and Aerobics Class (1 hour) Strengthening and Cardiovascular Exercise (1 hour) Functional Conditioning (1 hour) Pain Education/Medical Provider/Other Supplemental Discussion Topic (1 hour) Functional Conditioning (1 hour) Walk/Unguarded Activity, Mindfulness/Relaxation and Stretching (1 hour) Day 14 Stretch, Strengthening and Aerobics Class (1 hour) Strengthening and Cardiovascular Exercise (1 hour) Functional Conditioning (1 hour) Pain Education/Medical Provider/Other Supplemental Discussion Topic (1 hour) Functional Conditioning (1 hour) Walk/Unguarded Activity, Mindfulness/Relaxation and Stretching (1 hour) Day 15 Stretch, Strengthening and Aerobics Class (1 hour) Strengthening and Cardiovascular Exercise (1 hour) Functional Conditioning (1 hour) Pain Education/Medical Provider/Other Supplemental Discussion Topic (1 hour) Functional Conditioning (1 hour) Walk/Unguarded Activity, Mindfulness/Relaxation and Stretching (1 hour) Day 16 Stretch, Strengthening and Aerobics Class (1 hour) Strengthening and Cardiovascular Exercise (1 hour) Functional Conditioning (1 hour) Pain Education/Medical Provider/Other Supplemental Discussion Topic (1 hour) Functional Conditioning (1 hour) Walk/Unguarded Activity, Mindfulness/Relaxation and Stretching (1 hour) Day 17 Stretch, Strengthening and Aerobics Class (1 hour) Strengthening and Cardiovascular Exercise (1 hour) Functional Conditioning (1 hour) Pain Education/Medical Provider/Other Supplemental Discussion Topic (1 hour) Functional Conditioning (1 hour) Walk/Unguarded Activity, Mindfulness/Relaxation and Stretching (1 hour) Day 18 Stretch, Strengthening and Aerobics Class (1 hour) Strengthening and Cardiovascular Exercise (1 hour) Functional Conditioning (1 hour) Pain Education/Medical Provider/Other Supplemental Discussion Topic (1 hour) Functional Conditioning (1 hour) Walk/Unguarded Activity, Mindfulness/Relaxation and Stretching (1 hour) Day 19 Stretch, Strengthening and Aerobics Class (1 hour) Strengthening and Functional Conditioning (1 hour) Functional Conditioning (up to 1 hour) Individual Discharge Meeting with MD/BETO and FRP team (25 minutes) Graduation and Final D/C information (20 minutes) documented in this encounter Plan of Treatment Upcoming Encounters Date Type Department Care Team (Late st Contact Info) Description 05/05/2024 8:00 AM EST Office Visit Physical Therapy at [facility] [address] [place] [address] Kierra Moreno, PT [facility] PHYSICAL MEDICINE & [place] [address] 05/05/2024 9:00 AM EST Office Visit Functional Confucianist Program at [facility] [address] [place] [address] Mireya Nicole, OT 05/19/2024 8:00 AM EST Office Visit Physical Therapy at [facility] [address] [place] [address] Kierra Moreno, PT [facility] PHYSICAL MEDICINE & [place] [address] 06/02/2024 9:00 AM EST Office Visit Physical Therapy at [facility] [address] [place] [address] Kierra Moreno, PT [facility] PHYSICAL MEDICINE & [place] [address] documented as of this encounter Visit Diagnoses Diagnosis Radiculopathy of lumbar region Thoracic or lumbosacral neuritis or radiculitis, unspecified documented in this encounter Care Teams Dental Insurance Biller Relationship Specialty Start Date End Date Sb Jones PA [address] [place] [address] PCP - General Internal Medicine 05/27/23 documented as of this encounter
--- OUTSIDE RECORDS SUMMARY | 2024-03-25 13:59 | XMS_ITS | Encounter Summary ---
Author Organization [facility] [place] [address] Care Team Providers Care Plant Technician Name Role Phone Sb Jones Primary Care Provider [phone] Reason for Visit * Consultation (Routine) - Authorized Specialty Diagnoses / Procedures Referred By Contac t Referred To Contact Orthopaedics Diagnoses Radiculopathy of lumbar region Pelvic pain in male Jennifer Vang APRN [facility] [place] [address] [facility] [address] [place] [address] Referral ID Status Reason Start Date Expiration Date Visits Requested Visits Authorized [id number] Authorized Functional Restorative Program 11/12/2023 11/11/2024 54 53 Encounter Details Date Type Department Care Team (Latest Contact Info) Description 01/10/2024 1:00 PM EDT Office Visit Functional Church Program at [facility] [address] [place] [address] Jennifer Vang BALE COVERER [facility] [place] [address] Radiculopathy of lumbar region Social History Tobacco [...] Progress Notes * Jennifer Vang APRN - 01/10/2024 1:00 PM EDT [id number] Som Judge 01/10/2024 Chief complaint requiring rehabilitation: back and leg pain FUNCTIONAL YAZIDISM PROGRAM EDUCATIONAL SERIES Presenter: Jennifer Vang APRN SPINAL ANATOMY, IMAGING, SURGERY AND REHABILITATION/MEDICATIONS This is a one-hour discussion meant to enhance future encounters with health care providers. Patient expectations of pain relief and diagnosis were matched with a review of differential diagnosis andthe anatomy of spinal pain. Diagnostic tools and their capacities and limitations were reviewed. Absence of clear surgically correctable diagnoses, natural history of acute episode recovery and the nature of disability from chronic pain were reviewed. The role of quota based, goal oriented rehabilitation was reviewed in this context. We then listed all the patients??? current and prior chief complaint-related medications, placing each in its pharmacological category. The personal experiences of the patients in terms of side effects and benefits were reviewed and discussed with references to the biochemical and clinical effects if the drugs. The lack of curative impact of these medications was stressed. The difficulties in determining optimal doses for analgesics were discussed in the context of the varying needs of patientsand regulatory issues involved. The importance of prescribing in the framework of functional goals was reviewed as opposed to focusing entirely on symptom relief. Jennifer Vang, MS, FIXED INTEREST DEALER-BC, BALE COVERER Nurse practitioner Pain management [facility] documented in this encounter Plan of Treatment Upcoming Encounters Date Type Department Care Team (Late st Contact Info) Description 05/05/2024 8:00 AM EST Office Visit Physical Therapy at [facility] [address] [place] [address] Kierra Moreno, PT [facility] PHYSICAL MEDICINE & [place] [address] 05/05/2024 9:00 AM EST Office Visit Functional Church Program at [facility] [address] [place] [address] Mireya Nicole, OT 05/19/2024 8:00 AM EST Office Visit Physical Therapy at [facility] [address] [place] [address] Kierra Moreno, PT [facility] PHYSICAL MEDICINE [place] [address] 06/02/2024 9:00 AM EST Office Visit Physical Therapy at [facility] [address] [place] [address] Kierra Moreno, PT [facility] PHYSICAL MEDICINE & [place] [address] documented as of this encounter Visit Diagnoses Diagnosis Radiculopathy of lumbar region Thoracic or lumbosacral neuritis or radiculitis, unspecified documented in this encounter Care Teams Plant Technician Relationship Specialty Start Date End Date Sb Jones PA [address] [place] [address] PCP - General Internal Medicine 05/27/23 documented as of this encounter
--- OUTSIDE RECORDS SUMMARY | 2024-03-25 13:59 | XMS_ITS | Encounter Summary ---
Author Organization [facility] Address [facility] [place] [address] Care Team Providers Care Loop Cutter Name Role Phone Sb Jones Primary Care Provider [phone] Encounter Details Date Type Department Care Team (Latest Contact Info) Description 01/08/2024 Travel Social History Tobacco Use Types Packs/Day [...] EST Office Visit Physical Therapy at [facility] [address] [place] [address] Kierra Moreno, PT [facility] PHYSICAL MEDICINE & [place] [address] 05/05/2024 9:00 AM EST Office Visit Functional Zoroastrian Program at [facility] [address] [place] [address] Mireya Nicole, OT 05/19/2024 8:00 AM EST Office Visit Physical Therapy at [facility] [address] [place] [address] Kierra Moreno, PT [facility] PHYSICAL MEDICINE & [place] [address] 06/02/2024 9:00 AM EST Office Visit Physical Therapy at [facility] [address] [place] [address] Kierra Moreno, PT [facility] PHYSICAL MEDICINE & [place] [address] documented as of this encounter Visit Diagnoses Not on filedocumented in this encounter Care Teams Loop Cutter Relationship Specialty Start Date End Date Sb Jones PA [address] [facility] [address] [place] [address] PCP - General Internal Medicine 05/27/23 documented as of this encounter
--- OUTSIDE RECORDS SUMMARY | 2024-03-25 13:59 | XMS_ITS | Encounter Summary ---
Author Organization [facility] [place] [address] Care Team Providers Care Manager Contact Name Role Phone Sb Jones Primary Care Provider [phone] Reason for Visit * Consultation (Routine) - Authorized Specialty Diagnoses / Procedures Referred By Contac t Referred To Contact Orthopaedics Diagnoses Radiculopathy of lumbar region Pelvic pain in male Jennifer Vang APRN [facility] [place] [address] [facility] [address] [place] [address] Referral ID Status Reason Start Date Expiration Date Visits Requested Visits Authorized [id number] Authorized Functional Restorative Program 11/12/2023 11/11/2024 54 53 Encounter Details Date Type Department Care Team (Late st Contact Info) Description 01/21/2024 8:00 AM EDT Office Visit Functional Sabianism Program at [facility] [address] [place] [address] Ludwig Schumacher Jr., PT Radiculopathy of lumbar [...] Therapy - Ludwig Schumacher Jr., PT - 01/21/2024 8:00 AM EDT FRP Physical Therapy Note [facility] Day Protocol Subjective: Vadim returns today for a scheduled follow up appointment with [facility]. Vadim stated his lower back is feeling pretty good this morning. Objectives and Treatment Received [...] Extensions 30 Minutes Exercise Ball (2 x 15 each) Seated Spine Flexion/Extension Seated Alt Arm [...] to tolerance Cardio performed today: N/A See [facility] flowsheet for details on time held and [...] Return for follow up with [facility] per protocol. 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; Be able to chop, lift and carry wood; documented in this encounter Plan of Treatment Upcoming Encounters Date Type Department Care Team (Late st Contact Info) Description 05/05/2024 8:00 AM EST Office Visit Physical Therapy at [facility] [address] [place] [address] Kierra Moreno, PT [facility] PHYSICAL MEDICINE & [place] [address] 05/05/2024 9:00 AM EST Office Visit Functional Sabianism Program at [facility] [address] [place] [address] Mireya Nicole, OT 05/19/2024 8:00 AM EST Office Visit Physical Therapy at [facility] [address] [place] [address] Kierra Moreno, PT [facility] PHYSICAL MEDICINE & [place] [address] 06/02/2024 9:00 AM EST Office Visit Physical Therapy at [facility] [address] [place] [address] Kierra Moreno, PT [facility] PHYSICAL MEDICINE & [place] [address] documented as of this encounter Visit Diagnoses Diagnosis Radiculopathy of lumbar region Thoracic or lumbosacral neuritis or radiculitis, unspecified documented in this encounter Care Teams Manager Contact Relationship Specialty Start Date End Date Sb Jones PA [address] [place] [address] PCP - General Internal Medicine 05/27/23 documented as of this encounter
--- OUTSIDE RECORDS SUMMARY | 2024-03-25 13:59 | XMS_ITS | Encounter Summary ---
Author Organization [facility] Address [facility] [place] [address] Care Team Providers Care Motor And Generator Assembler Name Role Phone Sb Jones Primary Care Provider [phone] Encounter Details Date Type Department Care Team (Latest Contact Info) Description 01/07/2024 Travel Social History Tobacco Use Types Packs/Day [...] AM EST Office Visit Physical Therapy at [facility] [address] [place] [address] Kierra Moreno, PT [facility] PHYSICAL MEDICINE & [place] [address] 05/05/2024 9:00 AM EST Office Visit Functional Church Program at [facility] [address] [place] [address] Mireya Nicole, OT 05/19/2024 8:00 AM EST Office Visit Physical Therapy at [facility] [address] [place] [address] Kierra Moreno, PT [facility] PHYSICAL MEDICINE & [place] [address] 06/02/2024 9:00 AM EST Office Visit Physical Therapy at [facility] [address] [place] [address] Kierra Moreno, PT [facility] PHYSICAL MEDICINE & [place] [address] documented as of this encounter Visit Diagnoses Not on filedocumented in this encounter Care Teams Motor And Generator Assembler Relationship Specialty Start Date End Date Sb Jones PA [address] [facility] [address] [place] [address] PCP - General Internal Medicine 05/27/23 documented as of this encounter
--- OUTSIDE RECORDS SUMMARY | 2024-03-25 13:59 | XMS_ITS | Encounter Summary ---
Author Organization [facility] [place] [address] Care Team Providers Care Security Sales Consultant Name Role Phone Sb Jones Primary Care Provider [phone] Reason for Visit * Consultation (Routine) - Authorized Specialty Diagnoses / Procedures Referred By Contac t Referred To Contact Orthopaedics Diagnoses Radiculopathy of lumbar region Pelvic pain in male Jennifer Vang APRN [facility] [place] [address] [facility] [address] [place] [address] Referral ID Status Reason Start Date Expiration Date Visits Requested Visits Authorized [id number] Authorized Functional Restorative Program 11/12/2023 11/11/2024 54 53 Encounter Details Date Type Department Care Team (Late st Contact Info) Description 01/09/2024 8:00 AM EDT Office Visit Functional Lutheran Program at [facility] [address] [place] [address] Ludwig Schumacher Jr., PT Radiculopathy of lumbar [...] Therapy - Ludwig Schumacher Jr., PT - 01/09/2024 8:00 AM EDT FRP Physical Therapy Note [facility] Day 3 Warm Up Exercises Protocol Subjective: Vadim returns today for a scheduled follow up appointment with [facility]; Vadim reported feeling very sore and stiff this morning. Objective & Treatment Received: Participated in session as a member in a group of 7 30 Minutes Standing Warm Up Exercises High March Heel-kick March Squat Step Back Toe Touch Knees to Hands B Forward Lunges Side Lunges 30 Minutes Supine, Sidelying, Prone Mat Exercises (2 x 10 each) Lower trunk rotation Straight Leg Raises Curl Up/Crunch Bridge Lower Abdominal Heel Taps B Sidelying Hip Abduction Prone Scap Retraction Prone Hip Extension Press Ups Exercises below performed with guidance in establishing baseline weights for flowsheet Dumbbells - Bicep curls, shoulder raises to 90 degrees of flexion, straight leg deadlift, and pronereverse flies on plinth. 2x10 reps for each Weight Machines - Lat pull downs, single arm seated row, leg press, chest press, knee extensions, and back extensions. 2x10 reps for each Gui chair back extensions 2 sets to tolerance Cardio orientation performed on treadmill, elliptical, and upright bike See [facility] flowsheet for details on time held and weights completed Patient participated in all exercises, with some challenges with positioning with low seats. Assessment: Vadim returns for follow up visit. They were able to establish challenging, but successful performance with all weights while maintaining form. Cues were needed intermittently for maintenance of form. Challenges they demonstrate with low seats likely due to reduced strength and flexibility in the lower extremity, hips, and back. He actively participated as a member of the group throughout session Plan: Return for follow up with FRP per protocol. 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; unload and load recreational therapist; Be able to chop, lift and carry wood; Length of visit: Participated in warm-up and strengthening program from 8:00 a.m. through 12:00 a.m. today as part of group intervention with individualized cues provided documented in this encounter Plan of Treatment Upcoming Encounters Date Type Department Care Team (Late st Contact Info) Description 05/05/2024 8:00 AM EST Office Visit Physical Therapy at [facility] [address] [place] [address] Kierra Moreno, PT [facility] PHYSICAL [place] [address] 05/05/2024 9:00 AM EST Office Visit Functional Lutheran Program at [facility] [address] [place] [address] Mireya Nicole, OT 05/19/2024 8:00 AM EST Office Visit Physical Therapy at [facility] [address] [place] [address] Kierra Moreno, PT [facility] PHYSICAL MEDICINE & [place] [address] 06/02/2024 9:00 AM EST Office Visit Physical Therapy at [facility] [address] [place] [address] Kierra Moreno, PT [facility] PHYSICAL MEDICINE & [place] [address] documented as of this encounter Visit Diagnoses Diagnosis Radiculopathy of lumbar region Thoracic or lumbosacral neuritis or radiculitis, unspecified documented in this encounter Care Teams Security Sales Consultant Relationship Specialty Start Date End Date Sb Jones PA [address] [place] [address] PCP - General Internal Medicine 05/27/23 documented as of this encounter
--- OUTSIDE RECORDS SUMMARY | 2024-03-25 13:59 | XMS_ITS | Encounter Summary ---
Author Organization Formerly [facility] [place] [address] Care Team Providers Care Inside Sales Manager Name Role Phone Sb Jones Primary Care Provider [phone] Reason for Visit * Reason Comments Back Pain * Consultation (Routine) - Authorized Specialty Diagnoses / Procedures Referred By Contac t Referred To Contact Orthopaedics Diagnoses Radiculopathy of lumbar region Pelvic pain in male Jennifer Vang APRN [facility] [place] [address] [facility] [address] [place] [address] Referral ID Status Reason Start Date Expiration Date Visits Requested Visits Authorized [id number] Authorized Functional Restorative Program 11/12/2023 11/11/2024 54 53 Encounter Details Date Type Department Care Team (Latest Contact Info) Description 01/10/2024 11:00 AM EDT Office Visit Functional Sabianist Program at [facility] [address] [place] [address] Mireya Nicole, OT Radiculopathy of lumbar region [...] Treatment - Therapy - Kenyatta Maloney - 01/10/2024 11:00 AM EDT I was present throughout today's treatment/evaluation of the patient with my student participating.Following treatment I've reviewed, discussed and provided feedback to my occupational therapy student in which updates to the note were made. I concur with the note as written and recommend continuing treatment per Plan of Care as written. Mireya Nicole, OTR/L FRP Occupational Therapy Note [facility] Day 4 Protocol Subjective: Mr. Judge returns today for a scheduled follow up appointment with [facility]. He reports some increase discomfort in LLE and lower back following yesterday's participation. Despite additional soreness, he reports being able to complete HEP yesterday and felt relief through the additional movement. During participation in functional conditioning activities, he expressed lower back and LE discomfort. Objective: Refer to [facility] protocol for details and explanation [...] reps - Wall Clock - x6 reps - PEGS 2 minutes/ 3 Functional Crate Lifting: - Floor to Waist (straight- leg lifting) = 2 x 10 reps - Waist to Shoulder = 2 x10 reps - Occasional Lift (Squat Lift) = 1x 5 reps Weekend Homework: Provided an overview of a home exercise program for him to keep up with over the weekend to maintain progress to date, focusing on walking, stretching, functional lifting, and mindfulness meditation. Assigned weekend homework of deciding when and where he will exercise each day and assigned target lifting goals for the upcoming weekend. Home exercise program to include once daily functional lifting of forward bend x 20 repetitions and squat x 5 repetitions. Will compliment with once daily walking session, twice daily stretching sessions, and 5-10 minutes of mindfulness meditation from a selection of their choosing focusing on relaxation techniques.. Weekend Lifting Numbers Type of lift Weight Forward Bend 15 Squat 25 Instructed in 3 minutes of mindfulness meditation activity focusing on breathing techniques. Participated in 15 minutes of unguarded marsh bag toss activity. Individualized Treatment: Increased [...] of function. Challenges continue with lower back and LLE discomfort following participation in activities with increased physical demands, such as crate lifts and sled push/pull. They were provided additional stretches via PT for prone press ups to offload the spine intermittently during crate lifting sets. They required verbal cueing to breathe through more physically demanding activities that required forward bending. He actively participated with initiation of training [...] hike, be able to kayak on the [place] ; be able to travel ([place]) including walking 3-5 miles. Be able to sit in car for extended period of time. 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 and load professor of journalism; Be able to chop, lift and carry wood; documented in this encounter Plan of Treatment Upcoming Encounters Date Type Department Care Team (Late st Contact Info) Description 05/05/2024 8:00 AM EST Office Visit Physical Therapy at [facility] [address] [place] [address] Kierra Moreno, PT [facility] PHYSICAL MEDICINE [place] [address] 05/05/2024 9:00 AM EST Office Visit Functional Sabianist Program at [facility] [address] [place] [address] Mireya Nicole, OT 05/19/2024 8:00 AM EST Office Visit Physical Therapy at [facility] [address] [place] [address] Kierra Moreno, PT [facility] PHYSICAL MEDICINE [place] [address] 06/02/2024 9:00 AM EST Office Visit Physical Therapy at [facility] [address] [place] [address] Kierra Moreno, PT [facility] PHYSICAL MEDICINE [place] [address] documented as of this encounter Visit Diagnoses Diagnosis Radiculopathy of lumbar region Thoracic or lumbosacral neuritis or radiculitis, unspecified documented in this encounter Care Teams Inside Sales Manager Relationship Specialty Start Date End Date Sb Jones PA [address] [place] [address] PCP - General Internal Medicine 05/27/23 documented as of this encounter
--- OUTSIDE RECORDS SUMMARY | 2024-03-25 13:59 | XMS_ITS | Encounter Summary ---
Author Organization [facility] Address [facility] [place] [address] Care Team Providers Care Scientific Associate Name Role Phone Sb Jones Primary Care Provider Encounter Details Date Type Department Care Team (Latest Contact Info) Description 01/09/2024 Travel Social History Tobacco Use Types Packs/Day [...] at [facility] [address] [place] [address] Kierra Moreno, PT [facility] PHYSICAL MEDICINE & [place] [address] 05/05/2024 9:00 AM EST Office Visit Functional Samaritan Program at [facility] [address] [place] [address] Mireya Nicole, OT 05/19/2024 8:00 AM EST Office Visit Physical Therapy at [facility] [address] [place] [address] Kierra Moreno, PT [facility] PHYSICAL MEDICINE & [place] [address] 06/02/2024 9:00 AM EST Office Visit Physical Therapy at [facility] [address] [place] [address] Kierra Moreno, PT [facility] PHYSICAL MEDICINE & [place] [address] documented as of this encounter Visit Diagnoses Not on filedocumented in this encounter Care Teams Scientific Associate Relationship Specialty Start Date End Date Sb Jones PA [address] [facility] [address] [place] [address] PCP - General Internal Medicine 05/27/23 documented as of this encounter
--- OUTSIDE RECORDS SUMMARY | 2024-03-25 13:59 | XMS_ITS | Encounter Summary ---
Author Organization [facility] Address [facility] [place] [address] Care Team Providers Care Software Quality Analyst Name Role Phone Sb Jones Primary Care Provider [phone] Encounter Details Date Type Department Care Team (Latest Contact Info) Description 01/21/2024 Travel Social History Tobacco Use Types Packs/Day [...] AM EST Office Visit Physical Therapy at [facility] [address] [place] [address] Kierra Moreno, PT [facility] PHYSICAL MEDICINE & [place] [address] 05/05/2024 9:00 AM EST Office Visit Functional Adventism Program at [facility] [address] [place] [address] Mireya Nicole, OT 05/19/2024 8:00 AM EST Office Visit Physical Therapy at [facility] [address] [place] [address] Kierra Moreno, PT [facility] PHYSICAL MEDICINE & [place] [address] 06/02/2024 9:00 AM EST Office Visit Physical Therapy at [facility] [address] [place] [address] Kierra Moreno, PT [facility] PHYSICAL MEDICINE & [place] [address] documented as of this encounter Visit Diagnoses Not on filedocumented in this encounter Care Teams Software Quality Analyst Relationship Specialty Start Date End Date Sb Jones PA [address] [facility] 1 [place] [address] PCP - General Internal Medicine 05/27/23 documented as of this encounter
--- OUTSIDE RECORDS SUMMARY | 2024-03-25 13:59 | XMS_ITS | Encounter Summary ---
Author Organization [facility] Address [facility] [place] [address] Care Team Providers Care Stone Sawyer Name Role Phone Sb Jones Primary Care Provider [phone] Encounter Details Date Type Department Care Team (Latest Contact Info) Description 01/10/2024 Travel Social History Tobacco Use Types Packs/Day [...] Therapy at [facility] [address] [place] [address] Kierra Moreno, PT [facility] PHYSICAL MEDICINE & [place] [address] 05/05/2024 9:00 AM EST Office Visit Functional Sikhism Program at [facility] [address] [place] [address] Mireya Nicole, OT 05/19/2024 8:00 AM EST Office Visit Physical Therapy at [facility] [address] [place] [address] Kierra Moreno, PT [facility] PHYSICAL MEDICINE & [place] [address] 06/02/2024 9:00 AM EST Office Visit Physical Therapy at [facility] [address] [place] [address] Kierra Moreno, PT [facility] PHYSICAL MEDICINE & [place] [address] documented as of this encounter Visit Diagnoses Not on filedocumented in this encounter Care Teams Stone Sawyer Relationship Specialty Start Date End Date Sb Jones PA [address] [facility] 1 [place] [address] PCP - General Internal Medicine 05/27/23 documented as of this encounter
--- OUTSIDE RECORDS SUMMARY | 2024-03-25 13:59 | XMS_ITS | Encounter Summary ---
Author Organization Formerly [facility] [place] [address] Care Team Providers Care Mercury Recoverer Name Role Phone Sb Jones Primary Care Provider [phone] Reason for Visit * Consultation (Routine) - Authorized Specialty Diagnoses / Procedures Referred By Contac t Referred To Contact Orthopaedics Diagnoses Radiculopathy of lumbar region Pelvic pain in male Jennifer Vang APRN [facility] [place] [address] [facility] [address] [place] [address] Referral ID Status Reason Start Date Expiration Date Visits Requested Visits Authorized [id number] Authorized Functional Restorative Program 11/12/2023 11/11/2024 54 53 Encounter Details Date Type Department Care Team (Latest Contact Info) Description 01/17/2024 10:00 AM EDT Office Visit Functional Sikhism Program at [facility] [address] [place] [address] Lacey Gleason HOUSING COUNSELOR [facility] [place] [address] Radiculopathy of lumbar region; Pelvic pain in [...] Progress Notes * Lacey Gleason APRN - 01/17/2024 10:00 AM EDT Chief complaint requiring rehabilitation: Lower back pain SUBJECTIVE: Som is here for follow up regarding Problems identified in the day 1 visit. We identified the following barriers to obtaining his functional goals: Depression: managed with desvenlafaxine. Will communicate with staff if needed. Exercise is helping. When had a very bad day on Saturday, he felt discouraged but Reza was able to work with him and he has exercises that are helpful for the leg strength. Hypermobility--of knee. Has new exercises which helps with leg sx. BP high today. Normal today Asthma: has had no issue with this . Progress has been very good. OBJECTIVE: Exam is deferred today. BP 115/60 HR 73 ASSESSMENT: 1. Radiculopathy of lumbar region 2. Pelvic pain in male PLAN: Continued functional amish for chief complaint of lower back pain Continue to use tools for symptom management Continue to communicate if having worsening depressive sx. Continue to stay hydrated. 20 of this 25 minute counseling based visit was spent in face to face discussion regarding present and future plan of care. documented in this encounter Plan of Treatment Upcoming Encounters Date Type Department Care Team (Late st Contact Info) Description 05/05/2024 8:00 AM EST Office Visit Physical Therapy at [facility] [address] [place] [address] Kierra Moreno, PT [facility] PHYSICAL MEDICINE & [place] [address] 05/05/2024 9:00 AM EST Office Visit Functional Sikhism Program at [facility] [address] [place] [address] Mireya Nicole, OT 05/19/2024 8:00 AM EST Office Visit Physical Therapy at [facility] [address] [place] [address] Kierra Moreno, PT [facility] PHYSICAL MEDICINE & [place] [address] 06/02/2024 9:00 AM EST Office Visit Physical Therapy at [facility] [address] [place] [address] Kierra Moreno, PT [facility] PHYSICAL MEDICINE [place] [address] documented as of this encounter Visit Diagnoses Diagnosis Radiculopathy of lumbar region Thoracic or lumbosacral neuritis or radiculitis, unspecified Pelvic pain in male Abdominal pain, other specified site documented in this encounter Care Teams Mercury Recoverer Relationship Specialty Start Date End Date Sb Jones PA [address] [place] [address] PCP - General Internal Medicine 05/27/23 documented as of this encounter
--- OUTSIDE RECORDS SUMMARY | 2024-03-25 13:59 | XMS_ITS | Encounter Summary ---
Author Organization [facility] [place] [address] Care Team Providers Care Media Planner / Buyer Name Role Phone Sb Jones Primary Care Provider [phone] Reason for Visit * Consultation (Routine) - Authorized Specialty Diagnoses / Procedures Referred By Contac t Referred To Contact Orthopaedics Diagnoses Radiculopathy of lumbar region Pelvic pain in male Jennifer Vang APRN [facility] [place] [address] [facility] [address] [place] [address] Referral ID Status Reason Start Date Expiration Date Visits Requested Visits Authorized [id number] Authorized Functional Restorative Program 11/12/2023 11/11/2024 54 53 Encounter Details Date Type Department Care Team (Late st Contact Info) Description 01/22/2024 8:00 AM EDT Office Visit Functional Yazdanism Program at [facility] [address] [place] [address] Ludwig Schumacher Jr., PT Radiculopathy of lumbar [...] Therapy - Ludwig Schumacher Jr., PT - 01/22/2024 8:00 AM EDT FRP Physical Therapy Note [facility] Day 12 Protocol Subjective: Vadim returns today for a scheduled follow up appointment with [facility]. Vadim reported continued Lower Back Pain & Tightness & L Leg Weakness. Objectives and Treatment Received Exercises performed as [...] performed today: 10 Mins on TM See [facility] flowsheet for details on time held and weights completed Patient participated in all exercises. Assessment: Vadim returns for follow up visit. He was able to progress weights appropriately, while successfully maintaining form. Cues were needed intermittently for maintenance of posture during exercise and avoid compensation. He actively participated as a member of the group throughout session. Plan: Return for follow up with [facility] per protocol. 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; Be able to chop, lift and carry wood; documented in this encounter Plan of Treatment Upcoming Encounters Date Type Department Care Team (Late st Contact Info) Description 05/05/2024 8:00 AM EST Office Visit Physical Therapy at [facility] [address] [place] [address] Kierra Moreno, PT [facility] PHYSICAL MEDICINE & [place] [address] 05/05/2024 9:00 AM EST Office Visit Functional Yazdanism Program at [facility] [address] [place] [address] Mireya Nicole, OT 05/19/2024 8:00 AM EST Office Visit Physical Therapy at [facility] [address] [place] [address] Kierra Moreno, PT [facility] PHYSICAL MEDICINE & [place] [address] 06/02/2024 9:00 AM EST Office Visit Physical Therapy at [facility] [address] [place] [address] Kierra Moreno, PT [facility] PHYSICAL MEDICINE & [place] [address] documented as of this encounter Visit Diagnoses Diagnosis Radiculopathy of lumbar region Thoracic or lumbosacral neuritis or radiculitis, unspecified documented in this encounter Care Teams Media Planner / Buyer Relationship Specialty Start Date End Date Sb Jones PA [address] [place] [address] PCP - General Internal Medicine 05/27/23 documented as of this encounter
--- OUTSIDE RECORDS SUMMARY | 2024-03-25 13:59 | XMS_ITS | Encounter Summary ---
Author Organization [facility] [place] [address] Care Team Providers Care Barrel Polisher Name Role Phone Sb Jones Primary Care Provider [phone] Reason for Visit * Consultation (Routine) - Authorized Specialty Diagnoses / Procedures Referred By Contac t Referred To Contact Orthopaedics Diagnoses Radiculopathy of lumbar region Pelvic pain in male Jennifer Vang APRN [facility] [place] [address] [facility] [address] [place] [address] Referral ID Status Reason Start Date Expiration Date Visits Requested Visits Authorized [id number] Authorized Functional Restorative Program 11/12/2023 11/11/2024 54 53 Encounter Details Date Type Department Care Team (Late st Contact Info) Description 01/23/2024 8:00 AM EDT Office Visit Functional Yazdanism Program at [facility] [address] [place] [address] Ludwig Schumacher Jr., PT Radiculopathy of lumbar [...] Therapy - Ludwig Schumacher Jr., PT - 01/23/2024 8:00 AM EDT FRP Physical Therapy Note [facility] Day Protocol Subjective: Vadim returns today for a scheduled follow up appointment with [facility]. Vadim stated his Lower Back is feeling really good. Objectives and Treatment Received Exercises performed as [...] performed today: 10 Mins on Elliptical See [facility] flowsheet for details on time held [...] Plan: Return for follow up with [facility] per protocol. 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 teacher tutor; Be able to chop, lift and carry wood; documented in this encounter Plan of Treatment Upcoming Encounters Date Type Department Care Team (Late st Contact Info) Description 05/05/2024 8:00 AM EST Office Visit Physical Therapy at [facility] [address] [place] [address] Kierra Moreno, PT [facility] PHYSICAL MEDICINE & [place] [address] 05/05/2024 9:00 AM EST Office Visit Functional Yazdanism Program at [facility] [address] [place] [address] Mireya Nicole, OT 05/19/2024 8:00 AM EST Office Visit Physical Therapy at [facility] [address] [place] [address] Kierra Moreno, PT [facility] PHYSICAL MEDICINE & [place] [address] 06/02/2024 9:00 AM EST Office Visit Physical Therapy at [facility] [address] [place] [address] Kierra Moreno, PT [facility] PHYSICAL MEDICINE & [place] [address] documented as of this encounter Visit Diagnoses Diagnosis Radiculopathy of lumbar region Thoracic or lumbosacral neuritis or radiculitis, unspecified documented in this encounter Care Teams Barrel Polisher Relationship Specialty Start Date End Date Sb Jones PA [address] [place] [address] PCP - General Internal Medicine 05/27/23 documented as of this encounter
--- OUTSIDE RECORDS SUMMARY | 2024-03-25 14:00 | XMS_ITS | Encounter Summary ---
Author Organization On License Of [facility] Address [facility] [place] [address] Care Team Providers Care Engineering Mathematician Name Role Phone Romeo Corbin MD Primary Care Provider [phone] Encounter Details Date Type Department Care Team (Latest Contact Info) Description 11/08/2022 10:00 AM EDT Laboratory Appointment Lab [address] [place] [address] Irritable bowel syndrome with both constipation and diarrhea Social History Tobacco Use Types Packs/Day Years [...] Physical Therapy at [facility] [address] [place] [address] Kierra Moreno, PT [facility] PHYSICAL MEDICINE & [place] [address] 05/05/2024 9:00 AM EST Office Visit Functional Adventism Program at [facility] [address] [place] [address] Mireya Nicole OT 05/19/2024 8:00 AM EST Office Visit Physical Therapy at [facility] [address] [place] [address] Kierra Moreno, PT [facility] PHYSICAL MEDICINE & [place] [address] 06/02/2024 9:00 AM EST Office Visit Physical Therapy at [facility] [address] [place] [address] Kierra Moreno, PT [facility] PHYSICAL MEDICINE & [place] [address] documented as of this encounter Procedures Procedure Name Priority Date/Time Associated Diagnosis Comments TSH CASCADE Routine 11/08/2022 9:24 AM EDT Irritable bowel syndrome with both constipation and diarrhea TISSUE TRANSGLUTAMINASE, IGA Routine 11/08/2022 9:24 AM EDT Irritable bowel syndrome with both constipation and diarrhea IGA Routine 11/08/2022 9:24 AM EDT Irritable bowel syndrome with both constipation and diarrhea IGG Routine 11/08/2022 9:24 AM EDT Irritable bowel syndrome with both constipation and diarrhea documented in this encounter Results * TSH [place] (11/08/2022 9:24 AM EDT) Thyroid Stimulating Hormone 2.04 0.27 - 4.20 mcIU/mL [facility] Comment: Reference Interval (mcIU/mL): Females: ??First Trimester: 0.23-3.88 ??Second Trimester: 0.22-3.90 ??Third Trimester: 0.44-4.66 Blood 11/08/2022 9:24 AM EDT 11/08/2022 9:31 AM EDT Narrative Resulting Agency Comment Spec In Lab Paul Holman MD CHEMISTRY ORDERABLES [facility] [place] [address] * IgA (11/08/2022 9:24 AM EDT) IgA 330 70 - 400 mg/dL [facility] Blood 11/08/2022 9:24 AM EDT 11/08/2022 9:31 AM EDT Narrative Resulting Agency Comment Spec In Lab Paul Holman MD CHEMISTRY ORDERABLES Performing Organization Address [facility] Co de Phone Number [facility] [place] [address] * IgG (11/08/2022 9:24 AM EDT) Immunoglobulin G 1,297 700 - 1,600 mg/dL [facility] Comment: Pediatric Reference Intervals obtained from the Caliper Reference Interval project. http://www.[employer].ca/caliperproject/index.html Blood 11/08/2022 9:24 AM EDT 11/08/2022 9:31 AM EDT Narrative Resulting Agency Comment Spec In Lab Paul Holman MD CHEMISTRY ORDERABLES Performing Organization Address [facility] Co de Phone Number [facility] [place] [address] * Tissue transglutaminase, IgA (11/08/2022 9:24 AM EDT) TTG IgA Ab 0.7 <=10.0 u/ml [facility] Comment: Negative: ??<7 units/mL Indeterminate: 7-10 units/mL Positive: ??>10 units/mL Blood 11/08/2022 9:24 AM EDT 11/08/2022 10:42 AM EDT Narrative Resulting Agency Comment Spec In Lab Paul Holman MD IMMUNOLOGY ORDERABLE S Performing Organization Address [facility] Co de Phone Number [facility] [place] [address] documented in this encounter Visit Diagnoses Diagnosis Irritable bowel syndrome with both constipation and diarrhea documented in this encounter Care Teams Engineering Mathematician Relationship Specialty Start Date End Date Romeo Corbin MD [address] [place] [address] PCP - General 09/23/14 05/26/23 documented as of this encounter
--- OUTSIDE RECORDS SUMMARY | 2024-03-25 14:00 | XMS_ITS | Encounter Summary ---
Author Organization [facility] [place] [address] Care Team Providers Care Relish Blender Name Role Phone Sb Jones Primary Care Provider Encounter Details Date Type Department Care Team (Latest Contact Info) Description 11/13/2023 8:00 AM EDT TH Visit (TeleHealth) [facility] [place] [address] Lacey Gleason LEAD COOK [facility] [place] [address] Radiculopathy of lumbar region Social History Tobacco [...] Progress Notes * Lacey Gleason APRN - 11/13/2023 8:00 AM EDT [facility] [place] [address] Phone: PAIN MANAGEMENT TELEHEALTH FOLLOW UP VISIT NOTE DATE OF VISIT 11/13/2023 Patient Som Judge 1970 [address]ING [address]ER [address] [address] PRIMARY CARE PROVIDER KAVITHA Alatorre [X] Consent: I introduced and identified myself, received verbal consent from the patient to proceed with this telephone visit and made the patient aware that the same confidentiality and informationsecurity practices apply. [X] I verified the patient's name and, date of , and as well as payer information ID if available. [X] I also verified the following: Patient Location: ( ) Work ( XX) Home ( ) Other: Provider Location: ( XX) Clinic ( ) Home ( ) Other: The patient understands not all conditions can be adequately evaluated and treated through a virtual visit and may require an in-person medical evaluation. The patient understands that there may be co-pay /cost for the visit. Reason for Visit: Som Judge is a 53 y.o. male with lower back pain radiating into the groin/testicles and abdomen as well as into the buttocks and posterior thighs worse on the left. LESI done on 10/21/2023. The injection worked very well once the headache resolved. Patient had postural headache for approximately 5-6 days following the YADY. The intense headache improved in a couple of days and he was able to work. Pain score: today he is at a 7/10, had been 2-3/10 before his GAP. Pain medications: gabapentin, tylenol Patient continues to perform clinician directed home exercises. Patient denies any new neurological symptoms. Denies ataxia, uvaldo weakness, bladder/bowel complaints. Denies recent hospitalizations since last visit. Denies fever, chills. Past medical, social and family history is unchanged from prior visit. Prior injections 10/21/2023 LESI He has had 80+% improvement in pain and 50% improvement in function. 05/28/23 [place] LESI 90% improvement with 50% functional improvement. His pain level increased but still had 75% improvement. It has been nearly 4 months and the pain has been returning. 10/15/2022 [place] LESI 90% improvement with 50% improvement in function. Physical Exam: On limited telephonic examination appropriate speech and communication. Constitutional - Ax3 Psychiatric - normal affect , responds normally Respiratory - normal respiratory effort Musculoskeletal - Per report gait intact. No residuals from procedure. Neurologic - Alert and oriented x 3 with intact recent memory, attention, concentration, language function, and affect. Speech is fluent and prosodic with no dysarthria appreciated. Assessment Som Judge is a 53 y.o. male with lower back pain radiating into the groin/testicles and abdomen as well as into the buttocks and posterior thighs worse on the left. Patient had an LESI on 10/21/2023. He had a headache following the procedure but it resolved within a week. His pain has markedlyimproved, as has his function. Yesterday, he had a GAP assessment and med Clearance to enter [facility] and is working on logistical barriers but is hopeful that he will be able to participate in the December program. 1. Radiculopathy of lumbar region Justification of Medical Necessity At this time there are no red flag symptoms on history. Patient instructed to go to emergency department if new or worsening neurological symptoms develop. Plan: Patient will continue to work on logistics with the goal of entering the Functional jain program in December. He will continue with HEP. F/u prn Patient verbalized agreement of the plan. All of patient's questions were answered to their satisfaction. Time spent on this visit reflects time evaluating the patient pre-visit, during the visit and post-visit. Total time spent 20 minutes by telephone video Lacey Gleason APRN Nurse Practitioner [facility] [place] [address] / documented in this encounter Plan of Treatment Upcoming Encounters Date Type Department Care Team (Late st Contact Info) Description 05/05/2024 8:00 AM EST Office Visit Physical Therapy at [facility] [address] [place] [address] Kierra Moreno, PT [facility] PHYSICAL MEDICINE & [place] [address] 05/05/2024 9:00 AM EST Office Visit Functional Rastafarian Program at [facility] [address] [place] [address] Mireya Nicole, OT 05/19/2024 8:00 AM EST Office Visit Physical Therapy at [facility] [address] [place] [address] Kierra Moreno, PT [facility] PHYSICAL MEDICINE & [place] [address] 06/02/2024 9:00 AM EST Office Visit Physical Therapy at [facility] [address] [address] Kierra Moreno, PT [facility] PHYSICAL MEDICINE & [place] [address] documented as of this encounter Visit Diagnoses Diagnosis Radiculopathy of lumbar region Thoracic or lumbosacral neuritis or radiculitis, unspecified documented in this encounter Care Teams Relish Blender Relationship Specialty Start Date End Date Sb Jones PA [address] [facility] [address] [place] [address] PCP - General Internal Medicine 05/27/23 documented as of this encounter
--- OUTSIDE RECORDS SUMMARY | 2024-03-25 14:00 | XMS_ITS | Encounter Summary ---
Author Organization [facility] Address [facility] [place] [address] Care Team Providers Care Cube Cutter Name Role Phone Romeo Corbin MD Primary Care Provider [phone] Encounter Details Date Type Department Care Team (Late st Contact Info) Description 04/26/2023 Telephone [place] [address] Taniya Diaz Social History Tobacco Use Types Packs/Day Years [...] encounter Miscellaneous Notes * Telephone Encounter - Taniya Diaz - 04/26/2023 3:36 PM EST 04/26/2023 [facility] for patient to call back and schedule injection. Left call back [phone] documented in this encounter Plan of Treatment Upcoming Encounters Date Type Department Care Team (Late st Contact Info) Description 05/05/2024 8:00 AM EST Office Visit Physical Therapy at [facility] [address] [place] [address] Kierra Moreno, PT [facility] PHYSICAL MEDICINE & [place] [address] 05/05/2024 9:00 AM EST Office Visit Functional Mosque Program at [facility] [address] [facility] [place] [address] Mireya Nicole OT 05/19/2024 8:00 AM EST Office Visit Physical Therapy at [facility] [address] [facility] [place] [address] Kierra Moreno, PT [facility] PHYSICAL MEDICINE [place] [address] 06/02/2024 9:00 AM EST Office Visit Physical Therapy at [facility] [address] [facility] [place] [address] Kierra Moreno, PT [facility] PHYSICAL MEDICINE & [place] [address] documented as of this encounter Visit Diagnoses Not on filedocumented in this encounter Care Teams Cube Cutter Relationship Specialty Start Date End Date Romeo Corbin MD [address] [place] [address] PCP - General 09/23/14 05/26/23 documented as of this encounter
--- OUTSIDE RECORDS SUMMARY | 2024-03-25 14:00 | XMS_ITS | Encounter Summary ---
Author Organization [facility] Address [facility] [place] [address] Care Team Providers Care Customer Retention Representative Name Role Phone Romeo Corbin MD Primary Care Provider [phone] Encounter Details Date Type Department Care Team (Late st Contact Info) Description 05/22/2023 Telephone [facility] [place] [address] Chantal Pat, RN Social History Tobacco Use Types Packs/Day Years [...] encounter Miscellaneous Notes * Telephone Encounter - Chantal Pat RN - 05/23/2023 5:21 PM EST OUTGOING call to pt in response to Lacey Gleason APRN response to my msg: Lacey Gleason APRN to Me 05/22/23 12:46 PM Typically FMLA paperwork is done by PCP unless it is surrounding surgery. I would need an extended follow up visit if PCP is not able to fill it out. Thank you Lacey Castro APRN sent to Chantal Pat, RN I will look around for it. Book him for an extended visit please Forwarded msg to Lalito for scheduling.(Sent secureChat afterwards to cancel). Pt reports he had a discussion with Lacey regarding the forms, and had mailed them to us per request. Apologized for confusion, and gave pt the option of me discussing it with Lacey again, or having his PCP complete them. Pt reports he will ask his PCP, but asked me to make sure the new PCP, Sb PLUMMER has copies of his last OVN and most recent MRI. Will fax to [phone] @ [facility]. Sent last 3 OVN's (d/t PCP only seeing pt once so far) and MRI results. * Telephone Encounter - Chantal Pat RN - 05/22/2023 10:05 AM EST VM from pt stating he had 2 issues/questions. 1) He had a recent back flare and PCP rx'd Medrol DosePak. Ok to proceed with 05/28 scheduled injection? 2) He submitted FMLA paperwork >1 month ago and has heard back regarding. Reviewed chart. Could not find any note regarding FMLA paperwork, and it wasn't mentioned on 04/12 OVN. Not scannedin chart. OUTGOING call to pt for clarification. LVM reporting DosePak = ok, and couldn't find note on FMLA paperwork. Will forward msg to Lacey Gleason APRN to inquire. documented in this encounter Plan of Treatment Upcoming Encounters Date Type Department Care Team (Late st Contact Info) Description 05/05/2024 8:00 AM EST Office Visit Physical Therapy at [facility] [address] [place] [address] Kierra Moreno, PT [facility] PHYSICAL MEDICINE & [place] [address] 05/05/2024 9:00 AM EST Office Visit Functional Synagogue Program at [facility] [address] [place] [address] Mireya Nicole OT 05/19/2024 8:00 AM EST Office Visit Physical Therapy at [facility] [address] [place] [address] Kierra Moreno, PT [facility] PHYSICAL MEDICINE & [place] [address] 06/02/2024 9:00 AM EST Office Visit Physical Therapy at [facility] [address] [place] [address] Kierra Moreno, PT [facility] PHYSICAL MEDICINE [place] [address] documented as of this encounter Visit Diagnoses Not on filedocumented in this encounter Care Teams Customer Retention Representative Relationship Specialty Start Date End Date Romeo Corbin MD [address] [place] [address] PCP - General 09/23/14 05/26/23 documented as of this encounter
--- OUTSIDE RECORDS SUMMARY | 2024-03-25 14:00 | XMS_ITS | Encounter Summary ---
Author Organization [facility] Address [facility] [place] [address] Care Team Providers Care Sleeve Baster Name Role Phone Romeo Corbin MD Primary Care Provider [phone] Reason for Visit * Diagnostic Test (Routine) - Closed Specialty Diagnoses / Procedures Referred By Contac t Referred To Contact Gastroenterology Diagnoses Irritable bowel syndrome with both constipation and diarrhea HBT - glucose - diarrhea Procedures Breath Hydrogen Test Paul Holman MD [facility] [place] [address] [facility] [address] [address] Referral ID Status Reason Start Date Expiration Date V isits Requested Visits Authorized [id number] Closed Consult, Test & Treat 08/27/2022 08/27/2023 1 1 Encounter Details Date Type Department Care Team (Latest Contact Info) Description 11/08/2022 12:00 PM EDT Procedure [place] [address] Irritable bowel syndrome with both constipation and [...] as of this encounter Progress Notes * Mili Grover APRN - 11/08/2022 12:00 PM EDT Gastroenterology Breath Test Report Patient: Som Judge Date Of : 1970 PCP: Romeo Corbin MD Referring: Paul Holman STUDY DATE: 11/20/2022 PROVIDER: Mili Grover APRN INDICATION: bloating ppmH2 ppmCH4 CO2(f) Fasting Baseline 4 10 3.1/1.96 Administer sugar: Glucose 75g with 90 mL H2O Sample Time ppmH2 ppmCH4 CO2(f) 90 min 3 5 2.3/2.65 Symptoms during the test: no Interpretation: Negative hydrogen breath test. Patient had excess production of methane which can be associated with constipation. Patient reported no symptoms during the test. Clinical interpretation is based on the Hydrogen and Methane-Based Breath Testing in Gastrointestinal Disorders: The [place] Consensus (Am J Gastroenterol 2017; 112(5):775-84. Apositive breath test is defined as a rise in hydrogen production >20 ppm compared to baseline within 90 minutes. Methane-positive is defined by at least 10 ppm production of methane. Signed, Mili Grover APRN [place]astroenterology [place] [address] P: [phone] F: [phone] Copy: Paul Corbin MD documented in this encounter Plan of Treatment Upcoming Encounters Date Type Department Care Team (Late st Contact Info) Description 05/05/2024 8:00 AM EST Office Visit Physical Therapy at [facility] [address] [place] [address] Kierra Moreno, PT [facility] PHYSICAL MEDICINE & [place] [address] 05/05/2024 9:00 AM EST Office Visit Functional Catholic Program at [facility] [address] [place] [address] Mireya Nicole OT 05/19/2024 8:00 AM EST Office Visit Physical Therapy at [facility] [address] [place] [address] Kierra Moreno, PT [facility] PHYSICAL MEDICINE & [place] [address] 06/02/2024 9:00 AM EST Office Visit Physical Therapy at [facility] [address] [place] [address] Kierra Moreno, PT [facility] PHYSICAL MEDICINE & [place] [address] documented as of this encounter Visit Diagnoses Diagnosis Irritable bowel syndrome with both constipation and diarrhea documented in this encounter Care Teams Sleeve Baster Relationship Specialty Start Date End Date Romeo Corbin MD [address] [place] [address] PCP - General 09/23/14 05/26/23 documented as of this encounter
--- OUTSIDE RECORDS SUMMARY | 2024-03-25 14:00 | XMS_ITS | Encounter Summary ---
Author Organization [facility] Address [place] [address] Care Team Providers Care Supervisor Electronic Coils Name Role Phone Romeo Corbin MD Primary Care Provider [phone] Encounter Details Date Type Department Care Team (Latest Contact Info) Description 11/15/2022 Travel Social History Tobacco Use Types Packs/Day [...] Office Visit Physical Therapy at [facility] [address] [place] [address] Kierra Moreno, PT [facility] PHYSICAL MEDICINE & [place] [address] 05/05/2024 9:00 AM EST Office Visit Functional Protestant Program at [facility] [address] [place] [address] Mireya Nicole, OT 05/19/2024 8:00 AM EST Office Visit Physical Therapy at [facility] [address] [place] [address] Kierra Moreno, PT [facility] PHYSICAL MEDICINE & [place] [address] 06/02/2024 9:00 AM EST Office Visit Physical Therapy at [address] [place] [address] Kierra oMreno, PT [facility] PHYSICAL MEDICINE & [place] [address] documented as of this encounter Visit Diagnoses Not on filedocumented in this encounter Care Teams Supervisor Electronic Coils Relationship Specialty Start Date End Date Romeo Corbin MD [address] [place] [address] PCP - General 09/23/14 05/26/23 documented as of this encounter
--- OUTSIDE RECORDS SUMMARY | 2024-03-25 14:00 | XMS_ITS | Encounter Summary ---
Author Organization [facility] Mary[place] [address] Care Team Providers Care Wrapper Caser Name Role Phone Romeo Corbin MD Primary Care Provider Encounter Details Date Type Department Care Team (Late st Contact Info) Description 02/11/2023 Tele[place] [address] Fartun Dupont RN Social History Tobacco Use Types Packs/Day [...] encounter Miscellaneous Notes * Telephone Encounter - Fartun Dupont RN - 02/12/2023 10:17 AM EDT Call placed to patient to follow-up. He has not yet been seen by PCP but plan to see him today possibly. Instructed patient to be evaluated in ED if PCP could not see him today. He agrees with plan. * Telephone Encounter - Fartun Dupont RN - 02/11/2023 1:04 PM EDT Received call from patient who had an incident over the weekend of what sounds like constipation complicated by difficult passage of very hard stool. Vadim states that the hard stool was extremely large in diameter and resulted in some rectal bleeding. Rectum is now stretched open about four inches and leaking stool. States rectum is painful. Advised he should have an urgent PCP or local ED evaluation today. [facility] documented in this encounter Plan of Treatment Upcoming Encounters Date Type Department Care Team (Late st Contact Info) Description 05/05/2024 8:00 AM EST Office Visit Physical Therapy at [facility] [address] [place] [address] Kierra Moreno, PT [facility] PHYSICAL MEDICINE [place] [address] 05/05/2024 9:00 AM EST Office Visit Functional Orthodoxy Program at [facility] [address] [place] [address] Mireya Nicole, OT 05/19/2024 8:00 AM EST Office Visit Physical Therapy at [facility] [address] [place] [address] Kierra Moreno, PT [facility] PHYSICAL MEDICINE & [place] [address] 06/02/2024 9:00 AM EST Office Visit Physical Therapy at [facility] [address] [place] [address] Kierra Moreno, PT [facility] PHYSICAL MEDICINE [place] [address] documented as of this encounter Visit Diagnoses Not on filedocumented in this encounter Care Teams Wrapper Caser Relationship Specialty Start Date End Date Romeo Corbin MD [address] [place] [address] PCP - General 09/23/14 05/26/23 documented as of this encounter
--- OUTSIDE RECORDS SUMMARY | 2024-03-25 14:00 | XMS_ITS | Encounter Summary ---
Author Organization [facility] Address [facility] [place] [address] Care Team Providers Care Soil And Plant Scientist Name Role Phone Sb Jones Primary Care Provider Encounter Details Date Type Department Care Team (Late st Contact Info) Description 10/02/2023 Telephone [facility] [place] [address] Taniya Diaz Social History Tobacco Use Types [...] * Telephone Encounter - Taniya Diaz - 10/02/2023 11:25 AM EDT 10/02/2023 MM for patient to call back and schedule injection. Left call back [phone]. documented in this encounter Plan of Treatment Upcoming Encounters Date Type Department Care Team (Late st Contact Info) Description 05/05/2024 8:00 AM EST Office Visit Physical Therapy at [facility] [address] [place] [address] Kierra Moreno, PT [facility] PHYSICAL MEDICINE & [place] [address] 05/05/2024 9:00 AM EST Office Visit Functional Judaism Program at [facility] [address] [place] [address] Mireya Nicole, OT 05/19/2024 8:00 AM EST Office Visit Physical Therapy at [facility] [address] [place] [address] Kierra Moreno, PT [facility] PHYSICAL [place] [address] 06/02/2024 9:00 AM EST Office Visit Physical Therapy at [facility] [address] [place] [address] Kierra Moreno, PT [facility] PHYSICAL MED[place] [address] documented as of this encounter Visit Diagnoses Not on filedocumented in this encounter Care Teams Soil And Plant Scientist Relationship Specialty Start Date End Date Sb Jones PA [address] [place] [address] PCP - General Internal Medicine 05/27/23 documented as of this encounter
--- OUTSIDE RECORDS SUMMARY | 2024-03-25 14:00 | XMS_ITS | Encounter Summary ---
Author Organization [facility] Address [facility] [place] [address] Care Team Providers Care Pan Helper Name Role Phone Sb Jones Primary Care Provider [phone] Encounter Details Date Type Department Care Team (Late st Contact Info) Description 11/27/2023 Telephone Functional Cheondoism Program at [facility] [address] [place] [phone] Cortney Hawk Social History Tobacco Use Types Packs/Day Years [...] encounter Miscellaneous Notes * Telephone Encounter - Cortney Hawk - 11/27/2023 8:32 AM EDT Left voicemail informing patient that he will be receiving a formal invitation packet in the mail to the December FRP session. Let patient know that once the packet is received, he will need to call to confirm his spot in the program and answer remaining enrollment questions. documented in this encounter Plan of Treatment Upcoming Encounters Date Type Department Care Team (Late st Contact Info) Description 05/05/2024 8:00 AM EST Office Visit Physical Therapy at [facility] [address] [place] [phone] Kierra Moreno, PT [facility] PHYSICAL MEDICINE [place] [address] 05/05/2024 9:00 AM EST Office Visit Functional Cheondoism Program at [facility] [address] [place] [address] Mireya Nicole, OT 05/19/2024 8:00 AM EST Office Visit Physical Therapy at [facility] [address] [place] [address] Kierra Moreno, PT [facility] PHYSICAL MEDICINE [place] [address] 06/02/2024 9:00 AM EST Office Visit Physical Therapy at [facility] [address] [place] [address] Kierra Moreno, PT [facility] PHYSICAL MEDICINE & [place] [address] documented as of this encounter Visit Diagnoses Not on filedocumented in this encounter Care Teams Pan Helper Relationship Specialty Start Date End Date Sb Jones PA [address] [place] [address] PCP - General Internal Medicine 05/27/23 documented as of this encounter
--- OUTSIDE RECORDS SUMMARY | 2024-03-25 14:00 | XMS_ITS | Encounter Summary ---
Author Organization [facility] [place] [address] Care Team Providers Care Oil Heaterman Name Role Phone Sb Jones Primary Care Provider [phone] Reason for Visit * Auth/Cert (Routine) Specialty Diagnoses / Procedures Referred By Contac t Referred To Contact Diagnoses lumbar radiculopathy Procedures PRO INJECTION DX/THER SBST INTRLMNR LMBR/SAC W/IMG GDN INJECTION, EPIDURAL, LUMBAR OR SACRAL (CAUDAL), WITH IMAGING GUIDANCE (WRVU 1.8) Edwin Khan MD [facility] [address] [facility] Referral ID Status Reason Start Date Expiration Date Visits Re quested Visits Authorized [id number] 1 1 Encounter Details Date Type Department Care Team (Latest Contact Info) Description 05/28/2023 10:38 AM EST - 05/28/2023 11:[address] [facility] Hospital En[place] [address] Edwin Khan MD [facility] [place] [address] Radiculopathy of lumbar region Discharge Disposition: Home Social History Tobacco Use Types Packs/Day Years [...] Sign Reading Time Taken Comments Blood Pressure 141/96 05/28/2023 11:01 AM EST Pulse 59 05/28/2023 11:01 AM EST Temperature - - Respiratory Rate - - Oxygen Saturation 98% 05/28/2023 11:30 AM EST Inhaled Oxygen Concentration - - Weight 102.1 kg (225 lb) 05/28/2023 11:01 AM EST Height 182.9 cm (6') 05/28/2023 11:01 AM EST Body Mass Index 30.52 05/28/2023 11:01 AM EST documented in this encounter Medications at Time of Discharge Medication Sig Dispensed Refills Start Date End Date gabapentin (Neurontin) 300 mg capsule nightly. 05/08/2023 desvenlafaxine succinate ER (Pristiq) 50 mg ER 24 hr tablet Take 150 mg by mouth daily. 03/30/2023 acetaminophen (Tylenol) 325 mg Tablet Take 650 mg by mouth as needed. 01/08/2020 albuteroL 90 mcg/actuation HFA Aerosol Inhaler Inhale into the lungs every 6 hours as needed. 04/27/2019 cholecalciferol, Vitamin D3, 25 mcg (1,000 unit) Capsule Take 1 capsule by mouth daily. Takes 2 capsules in Winter 09/09/2015 tamsulosin (Flomax) 0.4 mg Capsule Take 1 capsule by mouth daily. 10/28/2020 MAGNESIUM ORAL Take 1 capsule by mouth daily. 02/23/2019 VITAMIN B COMPLEX ORAL Take 1 tablet by mouth daily. 02/23/2019 Acidophilus-Pectin 75 million cell -100 mg Capsule Take 1 capsule by mouth daily. 06/29/2022 09/20/2023 levothyroxine (Synthroid) 50 mcg Tablet Take 50 mcg by mouth daily. 05/23/2022 01/07/2024 documented as of this encounter H&P Notes * Jovani Strauss MD - 05/28/2023 7:14 AM EST Patient Name: Smo Judge Patient Age: 53 y.o. Birthdate: 1970 Admit date: 05/28/2023 Attending Physician: Edwin Khan MD [facility] PREPROCEDURE HISTORY AND PHYSICAL HPI: Som Judge is a 53 y.o. male who presents today for: Procedure: left Lumbar Epidural Steroid Injection The history is obtained from the patient, and I have reviewed medical records provided by the referring physician, located in the electronic medical record to fill in gaps in the patient's recollection of events, treatments and outcomes. ROS: Patient denies recent fever, chills, infection, wounds, hospitalizations, ED visits, use of antibiotics. Pertinent positives and negatives otherwise noted in the HPI. I have reviewed the patient's past medical history, past surgical history, list of medications, allergies, family history and social history as documented in the electronic medical record. Physical Examination: BP (!) 141/96 (Patient Position: Sitting) Pulse 59 Ht 182.9 cm (6') Wt 102.1 kg (225 lb) SpO2 96% BMI 30.52 kg/m?? Pain Ratin/10 No pertinent changes are noted from previous assessment. Pulmonary/Chest: Effort normal. Skin: Skin is warm and dry. No rash noted. Not diaphoretic. Radiologic Data: Relevant imaging was reviewed today. Labs: No labs required Assessment and Plan: lumbar radiculopathy Plan to proceed with left Lumbar Epidural Steroid Injection. Addressed all questions and concerns. Nursing intake/checklist reviewed. Medications holds confirmed. Risks and benefits discussed with patient. No contraindications to the procedure at this time, will proceed. Jovani Strauss MD Anesthesia, PGY3 [facility] [place] [address] / documented in this encounter Miscellaneous Notes * Op Note - Edwin Khan MD - 05/28/2023 11:22 AM EST Pain Management Operative Note Patient Name: Som Judge : [id number] MR#: [id number] Case Date: 05/28/2023 Surgeon: Surgeon(s) and Role: * Edwin Khan MD - Primary * Jovani Strauss MD - Resident - Assisting * Angy Dhaliwal MD - Fellow - Assisting Present on Admission: Radiculopathy of lumbar region Postoperative diagnosis: Same Procedure(s) (LRB): INJECTION, EPIDURAL, LUMBAR OR SACRAL (CAUDAL), WITH IMAGING GUIDANCE (WRVU 1.8) (N/A) LUMBAR INTERLAMINAR EPIDURAL STERIOID INJECTION PROCEDURE NOTE - L5-S1 L bias Mr. Som Judge has been referred to the Pain Management Center for a lumbar epidural steroid injection by Lacey Gleason APRN [facility] [place] [id number]. The patient complains of low back pain with pain radiating down the left leg. Mr. Judge was greeted by the nurse who verified patients name and . The patient was then taken to the fluoroscopy suite. Mr. Judge was interviewed and the medical record reviewed. There were no medical, pharmacologic,radiographic, or other structural contraindications to attempting fluoroscopically guided lumbar epidural steroid injection. Risks and potential side effects, as well as potential benefits of the procedure were reviewed with Mr. Judge. His voiced concerns were addressed. After I was assured thatinformed consent was obtained, the patient consent form was signed. Standard time-out procedure wasperformed. Mr. Judge was placed in the prone position on the fluoroscopy table and automated blood pressurecuff and pulse oximeter applied. The skin entry point for entering/approaching the L5-S1 epidural space for the lumbar epidural steroid injection was marked. Following thorough chlorhexidine preparation of the skin and draping and 1% lidocaine infiltration of the skin entry point and subcutaneous tissues, an 18 gauge Touhy needle was placed and advanced under fluoroscopic guidance and with loss of resistance technique into the L5-S1 epidural space. Needle tip placement and depth were aided and confirmed by fluoroscopy. There was no paresthesia or return of blood or CSF through the needle. 1 cc's of Omnipaque 240 was injected with clear epidural spread confirmed with fluoroscopy. Methylprednisolone 80 mg (1 ml) with Lidocaine 1% (2 ml) was injected slowly. This was followed by 1 cc of Lidocaine to flush the steroid out of the needle. There was not any unusual discomfort expressed by Mr. Judge. Mr. Judge's vital signs were stable throughout the procedure and were as recorded in nursing records. PLAN: Follow up with Ms. Lacey Gleason APRN in 3-5 weeks. Post procedure instruction was given as documented in nursing documentation and having met discharge criteria, he was discharged from the Pain Management Center. The procedure was performed by Drs. Strauss/ Isra under my supervision. I was the attending physician supervising the fellow in the above care and I was present with the fellow for the poole component(s) of the procedure and remained immediately available throughout the remainder. Edwin Khan MD Attending Physician [facility] [place] [address] / CC: Lacey Gleason APRN [facility] [place] [address] [address] documented in this encounter Plan of Treatment Upcoming Encounters Date Type Department Care Team (Late st Contact Info) Description 05/05/2024 8:00 AM EST Office Visit Physical Therapy at [facility] [address] [place] [address] Kierra Moreno, PT [facility] PHYSICAL B[place] & [place] [address] 05/05/2024 9:00 AM EST Office Visit Functional Pentecostalism Program at [facility] [address] [place] [address] Mireya Nicole, OT 05/19/2024 8:00 AM EST Office Visit Physical Therapy at [facility] [address] [place] [address] Kierra Moreno, PT [facility] PHYSICAL BEN[facility] & [place] [address] 06/02/2024 9:00 AM EST Office Visit Physical Therapy at [facility] [address] [place] [address] Kierra Moreno, PT [facility] PHYSICAL MEDICINE & [place] [address] documented as of this encounter Procedures Procedure Name Priority Date/Time Associated Diagnosis Comments Injection Dx/Ther Sbst Intrlmnr Lmbr/Sac W/Img Gdn (71946) 05/28/2023 11:16 AM EST Radiculopathy of lumbar region INJECTION, EPIDURAL, LUMBAR OR SACRAL (CAUDAL), WITH IMAGING GUIDANCE Routine 05/28/2023 10:40 AM EST Radiculopathy of lumbar region documented in this encounter Visit Diagnoses Diagnosis Radiculopathy of lumbar region- Primary Thoracic or lumbosacral neuritis or radiculitis, unspecified documented in this encounter Active and Recently Administered Medications Times are shown in EST. PRN Medication Order 05/26/2023 05/27/2023 05/28/2023 iohexoL (Omnipaque) (240 mg/mL) solution (CANCELED) PRN, Starting on 05/28/23 at 1132, Until 05/28/23 at 1338, Intra-Operative (Intra-Procedure), Routine 1132 (Given - Provid er: Jovani Strauss MD - Comment: SHIVI) lidocaine (pf) (Xylocaine) (10 mg/mL) 1% injection (CANCELED) PRN, Starting on 05/28/23 at 1132, Until 05/28/23 at 1338, Intra-Operative (Intra-Procedure), Routine 1132 (Given - Provid er: Jovani Strauss MD - Comment: LESI) methylPREDNISolone acetate (DEPO-Medrol) (80 mg/mL) injection (CANCELED) PRN, Starting on 05/28/23 at 1132, Until 05/28/23 at 1338, Intra-Operative (Intra-Procedure), Routine 1132 (Given - Provid er: Jovani Strauss MD - Comment: SHIVI) documented in this encounter Care Teams Oil Heaterman Relationship Specialty Start Date End Date Sb Jones PA [address] [place] [address] PCP - General Internal Medicine 05/27/23 documented as of this encounter
--- OUTSIDE RECORDS SUMMARY | 2024-03-25 14:00 | XMS_ITS | Encounter Summary ---
Author Organization [facility] [place] [address] Care Team Providers Care Edge Bander Operator Name Role Phone Sb Jones Primary Care Provider Reason for Referral * Consultation (Routine) - Authorized Specialty Diagnoses / Procedures Referred By Contac t Referred To Contact Orthopaedics Diagnoses Radiculopathy of lumbar region Lacey Gleason APRN [facility] [place] [address] [facility] [address] [place] [address] Referral ID Status Reason Start Date Expiration Date Visits Requested Visits Authorized [id number] Authorized Consult & Test 09/24/2023 09/23/2024 2 2 Encounter Details Date Type Department Care Team (Late st Contact Info) Description 09/24/2023 Orders Only [place] [address] Lacey Gleason APRN [facility] PAIN MANAGEMENT [place], [place] [id number] Radiculopathy of lumbar region Social History Tobacco [...] EST Office Visit Physical Therapy at [facility] [address] [place] [address] Kierra Moreno, PT [facility] PHYSICAL MED[place]INE [place] [address] 05/05/2024 9:00 AM EST Office Visit Functional Amish Program at [facility] [address] [place] [address] Mireya Nicole, OT 05/19/2024 8:00 AM EST Office Visit Physical Therapy at [facility] [address] [place] [address] Kierra Moreno, PT [facility] PHYSICAL MEDICINE [place] [address] 06/02/2024 9:00 AM EST Office Visit Physical Therapy at [facility] [address] [place] [address] Kierra Moreno, PT [facility] PHYSICAL MEDICINE [place] [address] Scheduled Referrals Name Type Priority Associated Diagnoses Order Schedule Referral to Functional Amish Program Outpatient Referral Routine Radiculopathy of lumbar region Ordered: 09/24/2023 documented as of this encounter Visit Diagnoses Diagnosis Radiculopathy of lumbar region Thoracic or lumbosacral neuritis or radiculitis, unspecified documented in this encounter Care Teams Edge Bander Operator Relationship Specialty Start Date End Date Sb Jones PA [address] [place] [address] PCP - General Internal Medicine 05/27/23 documented as of this encounter
--- OUTSIDE RECORDS SUMMARY | 2024-03-25 14:00 | XMS_ITS | Encounter Summary ---
Author Organization [facility] [place] [address] Care Team Providers Care Tea Blender Name Role Phone Sb Jones Primary Care Provider [phone] Reason for Visit * Auth/Cert (Routine) Specialty Diagnoses / Procedures Referred By Contac t Referred To Contact Diagnoses lumbar radiculopathy Procedures PRO INJECTION DX/THER SBST INTRLMNR LMBR/SAC W/IMG GDN INJECTION, EPIDURAL, LUMBAR OR SACRAL (CAUDAL), WITH IMAGING GUIDANCE (WRVU 1.8) Edwin Khan MD [facility] [place] [address] [facility] Referral ID Status Reason Start Date Expiration Date Visits Re quested Visits Authorized [id number] 1 1 Encounter Details Date Type Department Care Team (Late st Contact Info) Description 05/28/2023 11:15 AM EST Ancillary [place] [address] Edwin Khan MD [facility] [address] Social History Tobacco Use Types Packs/Day Years [...] AM EST Office Visit Physical Therapy at [facility] [address] [place] [address] Kierra Moreno, PT [facility] PHYSICAL MEDICINE [place] [address] 05/05/2024 9:00 AM EST Office Visit Functional Faith Program at [facility] [address] [place] [address] Mireya Nicole, OT 05/19/2024 8:00 AM EST Office Visit Physical Therapy at [facility] [address] [place] [address] Kierra Moreno, PT [facility] PHYSICAL MEDICINE [place] [address] 06/02/2024 9:00 AM EST Office Visit Physical Therapy at [facility] [address] [place] [address] Kierra Moreno, PT [facility] PHYSICAL MEDICINE & [place] [address] documented as of this encounter Procedures Procedure Name Priority Date/Time Associated Diagnosis Comments FILM LIBRARY STORAGE ONLY PAIN CLINIC C ARM Routine 05/28/2023 12:16 PM EST documented in this encounter Results * Film Library- Storage Only pain Clinic C-Arm (05/28/2023 12:16 PM EST) Narrative [facility] - 05/28/2023 12:16 PM EST See PACS for result report. Edwin Khan MD IMG FILM LIBRARY ORD ERABLES [place], [place] documented in this encounter Visit Diagnoses Not on filedocumented in this encounter Care Teams Tea Blender Relationship Specialty Start Date End Date Sb Jones PA [address] [place] [address] PCP - General Internal Medicine 05/27/23 documented as of this encounter
--- OUTSIDE RECORDS SUMMARY | 2024-03-25 14:00 | XMS_ITS | Encounter Summary ---
Author Organization [facility] [place] [address] Care Team Providers Care Grain Elevator Superintendent Name Role Phone Romeo Corbin MD Primary Care Provider [phone] Encounter Details Date Type Department Care Team (Late st Contact Info) Description 03/19/2023 Telephone [facility] [place] [phone] Anahi Marcus RN Social History Tobacco Use Types Packs/Day [...] encounter Miscellaneous Notes * Telephone Encounter - Anahi Marcus RN - 03/19/2023 2:47 PM EDT Out going return call to tell Vadim that he will need to call and come in for an apt with Nithya Gleason APRN prior to getting another injection . Vadim said that he will call and schedule an apt. I told Vadim that Nithya Aguilera's TEST CENTER ADMINISTRATOR put in the notes that Patient will return for f/u on a prn basis. May consider repeating injection up to 3 times in 12 month period. documented in this encounter Plan of Treatment Upcoming Encounters Date Type Department Care Team (Late st Contact Info) Description 05/05/2024 8:00 AM EST Office Visit Physical Therapy at [facility] [address] [place] [address] Kierra Moreno, PT [facility] PHYSICAL MEDICINE [place] [address] 05/05/2024 9:00 AM EST Office Visit Functional Sabianist Program at [facility] [address] [place] [address] Mireya Nicole, OT 05/19/2024 8:00 AM EST Office Visit Physical Therapy at [facility] [address] [place] [address] Kierra Moreno, PT [facility] PHYSICAL MEDICINE [place] [address] 06/02/2024 9:00 AM EST Office Visit Physical Therapy at [facility] [address] [place] [address] Kierra Moreno, PT [facility] PHYSICAL MEDICINE [place] [address] documented as of this encounter Visit Diagnoses Not on filedocumented in this encounter Care Teams Grain Elevator Superintendent Relationship Specialty Start Date End Date Romeo Corbin MD [address] [place] [address] PCP - General 09/23/14 05/26/23 documented as of this encounter
--- OUTSIDE RECORDS SUMMARY | 2024-03-25 14:00 | XMS_ITS | Encounter Summary ---
Author Organization [facility] Address [facility] [place] [address] Care Team Providers Care Netezza Developer Name Role Phone Sb Jones Primary Care Provider [phone] Reason for Visit * Reason Comments Follow-up Pain Lower back radiates down into both legsWeakness in legs (alternates between left and right leg) Discomfort in groin and stomach Encounter Details Date Type Department Care Team (Latest Contact Info) Description 09/20/2023 8:00 AM EDT Office Visit [facility] [place] [address] Lacey Gleason, RADHA [facility] [place] [address] Radiculopathy of lumbar region; Pelvic pain in [...] Sign Reading Time Taken Comments Blood Pressure 130/93 09/20/2023 8:05 AM EDT Pulse 86 09/20/2023 8:05 AM EDT Temperature - - Respiratory Rate - - Oxygen Saturation - - Inhaled Oxygen Concentration - - Weight 102.1 kg (225 lb) 09/20/2023 8:05 AM EDT Height 182.9 cm (6') 09/20/2023 8:05 AM EDT Body Mass Index 30.52 09/20/2023 8:05 AM EDT documented in this encounter Progress Notes * Lacey Gleason, RADHA - 09/20/2023 8:[address] [facility] [place] [address] Phone: PAIN MANAGEMENT FOLLOW UP VISIT NOTE DATE OF VISIT 09/20/2023 Patient Som Judge 1970 REFERRING PROVIDER Kaushik Mccauley, RADHA [address] [place] [address] PRIMARY CARE PROVIDER KAVITHA Alatorre Reason for Visit: Som Judge is a 53 y.o. male with lower back pain radiating into the groin/testicles and abdomen as well as into the buttocks and posterior thighs worse on the left. Patient had an LESI on 05/28. And had approximately 90% relief of his pain. He had a severe flare mid August with right lower extremity numbness and pain. Has primarily had left leg pain in past. Flare began after moving a trailer. He was seen in ED and this flare has resolved. At the time, MRI was ordered but is no longer necessary. Pain score: 5/10--with activities, the pain increases to 8-9/10. 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 Does yoga at home twice per day and a class on Saturday Medications: Using THC/CBD tincture at hs. Acetaminophen, now taking gabapentin Patient denies any new neurological symptoms. Denies ataxia, uvaldo weakness. Denies fever, chills. Prior injections 05/28/23 [place] LESI 90% improvement with 50% functional improvement. His pain level increased but still had 75% improvement. It has been nearly 4 months and the pain has been returning. 10/15/2022 IL LESI 90% improvement with 50% improvement in function. Physical Exam: Patient Vitals for the past 24 hrs: Pulse BP 09/20/23 0805 86 (!) 130/93 Appearance/ Behavior Well groomed, good eye contact, relaxed, cooperative, normal speech, no acute distress, no involuntary movements Eyes Sclera anicteric, conjunctiva clear. ENT Hearing grossly intact Lungs Normal respiratory effort Skin No rash, asymmetric hair loss, bruises, scars, swelling Musckuloskeletal Inspection/Palpation/ Range of Motion/Facet Loading maneuvers Gait: Antalgic to back pain Heel left weak Toe intact Inspection: good alignment, no excessive curvature, shoulder and hip levels equal bilaterally; no skin breakdown. Palpation: There is tenderness in the paraspinal musculature bilaterally, in the lower lumbar region much worse on the left. There is some tenderness in the upper lumbar midline. Tender left SI joint ROM: Flexion is limited to 50 degrees due to pain. Extension is 10 degrees. SLR: Negative Facet Loading: Positive Neuro Motor Strength Segment Muscle Action Bilateral Results L2-5, S 1 Gluteus medius Hip Adduction 5/5 L4-5, S1 Gluteus medius Hip Abduction *left 4/5 L2 Iliopsoas Hip flexion 5/5 L3 Quadriceps Knee extension 5/5 L4 Tibialis anterior Ankle Dorsiflexion 5/5 L5 Extensor hallucis Great toe extension 5/5 S1 Gastrocnemius Ankle Plantar flexion 5/5 *no change Reflexes: Segment Tendon Bilateral L3-4 Patella 2+ S1 Ankle Left 1+ Sensory Exam: No change. Vascular: warm to touch + 2 pedal pulses, no lower extremity edema or cyanosis noted. Assessment Som Judge is a 53 y.o. male with lower back pain radiating into the groin/testicles and abdomen as well as into the buttocks and posterior thighs worse on the left. Patient had an YADY on 05/28with 90% improvement in his pain and over 50% improvement in function lasting 4 months. The pain has been increasing again. Patient does well with Q 4 month ESIs. Patient episodic flares of pain requiring him to miss work. He finds that the combination of PT and the injections work very well to control his pain and allowhim to continue working. 1. Radiculopathy of lumbar region 2. Pelvic pain in male Plan Justification of Medical Necessity Patient's pain has been present for >6 weeks and is an average of >6/10 on 0-10 scale and pain interferes with ADLs. There has not been improvement in pain or performance of ADLs. The patient continues clinician directed home exercise program including exercises learned in PT. Procedure: Lumbar Epidural Steroid Injection Laterality: Left bias Levels: L5-S1 Contrast Required? Yes Pertinent Medical History - h/o Thrombocytopenia/bleeding tendency/platelet dysfunction: no - h/o Liver disease/abnormal liver function: no - h/o Chronic kidney disease (CKD)/abnormal kidney function: no - Patient on dialysis? no DEBRA Risk Stratification - Intermediate Is patient taking an anticoagulant? No Is patient taking any NSAIDs/Nutritional Supplements? Yes, patient does not need to hold Is patient taking Aspirin? No Is patient taking Antibiotics? No Is patient a diabetic?No Hemoglobin A1C? Has patient been on greater than 40mg of steroid 14 days or longer or has patient had a steroid injection within the last two weeks? No Does patient have allergies to contrast/local anesthetic/steroid? No Labs? N/A Imaging? In Chart Does patient need IV? no Does patient need sedation? no Does patient need NPO guidelines? no Special Instructions - N/A Follow up post procedure - Telehealth Visit 3-4 weeks with Lacey Gleason MSN, MANAGER RAIL Cancelled MRI order. It is no longer required. His exam is unchanged and his pain has returned to baseline Continue with HEP Completed FMLA paperwork Consider FRP--provided patient with brochure. Will consider further PT once he has the YADY if not proceeding with PT At this time there are no red flag symptoms on history. Patient instructed to go to emergency department if new or worsening neurological symptoms develop. Patient verbalized agreement of the plan. All of patient's questions were answered to his satisfaction. Time spent on this visit reflects time evaluating the patient pre-visit, during the visit and post-visit. Total time spent 35 minutes NEELAM Castro, MANAGER RAIL [facility] [address] [address] / documented in this encounter Plan of Treatment Upcoming Encounters Date Type Department Care Team (Late st Contact Info) Description 05/05/2024 8:00 AM EST Office Visit Physical Therapy at [facility] [address] [place] [address] Kierra Moreno, PT [facility] PHYSICAL MEDICINE & [place] [address] 05/05/2024 9:00 AM EST Office Visit Functional Pentecostal Program at [facility] [address] [place] [address] Mireya Nicole OT 05/19/2024 8:00 AM EST Office Visit Physical Therapy at [facility] [address] [place] [address] Kierra Moreno, PT [facility] PHYSICAL MEDICINE [place] [address] 06/02/2024 9:00 AM EST Office Visit Physical Therapy at [facility] [address] [place] [address] Kierra Moreno, PT [facility] PHYSICAL MEDICINE & [place] [address] documented as of this encounter Visit Diagnoses Diagnosis Radiculopathy of lumbar region Thoracic or lumbosacral neuritis or radiculitis, unspecified Pelvic pain in male Abdominal pain, other specified site documented in this encounter Care Teams Netezza Developer Relationship Specialty Start Date End Date Sb Jones PA [address] [place] [address] PCP - General Internal Medicine 05/27/23 documented as of this encounter
--- OUTSIDE RECORDS SUMMARY | 2024-03-25 14:00 | XMS_ITS | Encounter Summary ---
Author Organization [facility] [place] [address] Care Team Providers Care Program Mgr Name Role Phone Sb Jones Primary Care Provider [phone] Reason for Visit * Auth/Cert (Routine) Specialty Diagnoses / Procedures Referred By Contac t Referred To Contact Diagnoses lumbar radiculopathy Procedures PRO INJECTION DX/THER SBST INTRLMNR LMBR/SAC W/IMG GDN INJECTION, EPIDURAL, LUMBAR OR SACRAL (CAUDAL), WITH IMAGING GUIDANCE (WRVU 1.8) Edwin Khan MD [facility] [place] [address] [facility] Referral ID Status Reason Start Date Expiration Date Visits Re quested Visits Authorized [id number] 1 1 Encounter Details Date Type Department Care Team (Late st Contact Info) Description 05/28/2023 11:15 AM EST - 05/28/2023 11:45 AM EST [place] [address] Edwin Khan MD [facility] [address] INJECTION, EPIDURAL, LUMBAR OR SACRAL (CAUDAL), WITH IMAGING GUIDANCE (WRVU 1.8) Social History Tobacco Use Types Packs/Day Years [...] by mouth daily. Takes 2 capsules in winter09/09/2015 tamsulosin (Flomax) 0.4 mg Capsule Take 1 [...] - 05/28/2023 7:14 AM EST Patient Name: Som Judge Patient Age: 53 y.o. Birthdate: 1970 Admit date: 05/28/2023 Attending Physician: Edwin Khan MD [facility] PREPROCEDURE HISTORY AND [...] Anesthesia, PGY3 [facility] [place] [address] / documented in this encounter Miscellaneous Notes * Op Note - Edwin Khan MD - 05/28/2023 11:22 AM EST Pain Management Operative Note Patient Name: Som Judge : [id number] MR#: [id number] Case Date: 05/28/2023 Surgeon: Surgeon(s) and Role: [...] epidural steroid injection by Lacey Gleason APRN [facility] [place] [address]. The patient complains of low back pain [...] Attending Physician [facility] [address] [address] / CC: Lacey Gleason APRN [facility] [place] [address] KAVITHA Alatorre [facility] [place] [address] documented in this encounter Plan of Treatment Upcoming Encounters Date Type Department Care Team (Late st Contact Info) Description 05/05/2024 8:00 AM EST Office Visit Physical Therapy at [facility] [address] [place] [address] Kierra Moreno, PT [facility] PHYSICAL MEDICINE & [place] [address] 05/05/2024 9:00 AM EST Office Visit Functional Mandaeism Program at [facility] [address] [place] [address] Mireya Nicole OT 05/19/2024 8:00 AM EST Office Visit Physical Therapy at [facility] [address] [place] [address] Kierra Moreno, PT [facility] PHYSICAL MEDICINE & [place] [address] 06/02/2024 9:00 AM EST Office Visit Physical Therapy at [facility] [address] [place] [address] Kierra Moreno, PT [facility] PHYSICAL MEDICINE & [place] [address] documented as of this encounter Procedures Procedure Name Priority Date/Time Associated Diagnosis Comments Injection Dx/Ther Sbst Intrlmnr Lmbr/Sac W/Img Gdn (24953) 05/28/2023 11:16 AM EST Radiculopathy of lumbar region INJECTION, EPIDURAL, LUMBAR OR SACRAL (CAUDAL), WITH IMAGING GUIDANCE Routine 05/28/2023 10:40 AM EST Radiculopathy of lumbar region documented in this encounter Visit Diagnoses Diagnosis Radiculopathy of lumbar region- Primary Thoracic or lumbosacral neuritis or radiculitis, unspecified Radiculopathy of lumbar region Thoracic or lumbosacral neuritis or radiculitis, unspecified documented in this encounter Administered Medications Inactive Administered Medications - up to 3 most recent administrations Medication Order MAR Action Action Date Dose Rate Site iohexoL (Omnipaque) (240 mg/mL) solution PRN, Starting on Tu05/28/23 at 1132, Until Sat05/28/23 at 1338, Intra-Operative (Intra-Procedure), Routine Given 05/28/2023 11:32 AM EST 2 mLs lidocaine (pf) (Xylocaine) (10 mg/mL) 1% injection PRN, Starting on 05/28/23 at 1132, Until 05/28/23 at 1338, Intra-Operative (Intra-Procedure), Routine Given 05/28/2023 11:32 AM EST 2 mLs methylPREDNISolone acetate (DEPO-Medrol) (80 mg/mL) injection PRN, Starting on 05/28/23 at 1132, Until 05/28/23 at 1338, Intra-Operative (Intra-Procedure), Routine Given 05/28/2023 11:32 AM EST 80 mg documented in this encounter Active and Recently Administered Medications Times are shown in EST. PRN Medication Order 05/26/2023 05/27/2023 05/28/2023 iohexoL (Omnipaque) (240 mg/mL) solution (CANCELED) PRN, Starting on 05/28/23 at 1132, Until Tu05/28/23 at 1338, Intra-Operative (Intra-Procedure), Routine 1132 (Given - Provid er: Jovani Strauss MD - Comment: HUEY) lidocaine (pf) (Xylocaine) (10 mg/mL) 1% injection (CANCELED) PRN, Starting on Sat05/28/23 at 1132, Until Sat05/28/23 at 1338, Intra-Operative (Intra-Procedure), Routine 1132 (Given - Provid er: Jovani Strauss MD - Comment: HUEY) methylPREDNISolone acetate (DEPO-Medrol) (80 mg/mL) injection (CANCELED) PRN, Starting on Sat05/28/23 at 1132, Until Sat05/28/23 at 1338, Intra-Operative (Intra-Procedure), Routine 1132 (Given - Provid er: Jovani Strauss MD - Comment: HUEY) documented in this encounter Care Teams Program Mgr Relationship Specialty Start Date End Date Sb Jones PA [address] [place] [address] PCP - General Internal Medicine 05/27/23 documented as of this encounter
--- OUTSIDE RECORDS SUMMARY | 2024-03-25 14:00 | XMS_ITS | Encounter Summary ---
Author Organization [facility] Address [facility] [place] [address] Care Team Providers Care Cooperage Shop Supervisor Name Role Phone Sb Jones Primary Care Provider Encounter Details Date Type Department Care Team (Late st Contact Info) Description 11/27/2023 Notes Only Functional Catholic Program at [facility] [address] [place] [address] Cortney Hawk Social History Tobacco Use Types [...] as of this encounter Progress Notes * Cortney Hawk - 11/27/2023 8:33 AM EDT Mailed Invitation Packet for the Functional Catholic Program to the patient Program: January 06 - January 30 Red Flags for Re-GAP: NOT Needed Empowered Relief Workshop: Needed Arrival Time - TBD once patient has called to confirm Location: [facility]S Confirmation request date - 12/06/2023 documented in this encounter Plan of Treatment Upcoming Encounters Date Type Department Care Team (Late st Contact Info) Description 05/05/2024 8:00 AM EST Office Visit Physical Therapy at [facility] [address] [place] [address] Kierra Moreno, PT [facility] [place] [address] 05/05/2024 9:00 AM EST Office Visit Functional Catholic Program at [facility] [address] [place] [address] Mireya Nicole, OT 05/19/2024 8:00 AM EST Office Visit Physical Therapy at [facility] [address] [place] [address] Kierra Moreno, PT [facility] PHYSICAL MEDICINE [place] [address] 06/02/2024 9:00 AM EST Office Visit Physical Therapy at [facility] [address] [place] [address] Kierra Moreno, PT [facility] PHYSICAL MEDICINE & [place] [address] documented as of this encounter Visit Diagnoses Not on filedocumented in this encounter Care Teams Cooperage Shop Supervisor Relationship Specialty Start Date End Date Sb Jones PA [address] [place] [address] PCP - General Internal Medicine 05/27/23 documented as of this encounter
--- OUTSIDE RECORDS SUMMARY | 2024-03-25 14:00 | XMS_ITS | Encounter Summary ---
Author Organization [facility] [place] [address] Care Team Providers Care Rug Designer Name Role Phone Sb Jones Primary Care Provider [phone] Reason for Visit * Auth/Cert (Routine) Specialty Diagnoses / Procedures Referred By Contac t Referred To Contact Diagnoses Radiculopathy of lumbar region lumbar radiculopathy Procedures PRO INJECTION DX/THER SBST INTRLMNR LMBR/SAC W/IMG GDN INJECTION, EPIDURAL, LUMBAR OR SACRAL (CAUDAL), WITH IMAGING GUIDANCE (WRVU 1.8) Edwin Khan MD [facility] [place] [address] [facility] Referral ID Status Reason Start Date Expiration Date Visits Re quested Visits Authorized [id number] 1 1 Encounter Details Date Type Department Care Team (Late st Contact Info) Description 10/21/2023 9:15 AM EDT Ancillary Procedure [place] [address] Edwin Khan MD [facility] [place] [address] Social History Tobacco Use Types Packs/Day Years [...] Therapy at [facility] [address] [place] [address] Kierra Moreno, PT [facility] PHYSICAL MEDICINE & [place] [address] 05/05/2024 9:00 AM EST Office Visit Functional Worship Program at [facility] [address] [place] [address] Mireya Nicole, OT 05/19/2024 8:00 AM EST Office Visit Physical Therapy at [facility] [address] [place] [address] Kierra Moreno, PT [facility] PHYSICAL MEDICINE [place] [address] 06/02/2024 9:00 AM EST Office Visit Physical Therapy at [facility] [address] [place] [address] Kierra Moreno, PT [facility] PHYSICAL MED[facility]INE [place] [address] documented as of this encounter Procedures Procedure Name Priority Date/Time Associated Diagnosis Comments FILM LIBRARY STORAGE ONLY PAIN CLINIC C ARM Routine 10/21/2023 2:54 PM EDT documented in this encounter Results * Film Library- Storage Only pain Clinic C-Arm (10/21/2023 2:54 PM EDT) Narrative [facility] - 10/21/2023 2:54 PM EDT See PACS for result report. Edwin Khan MD IMG FILM LIBRARY ORD ERABLES [facility] [place], [place] documented in this encounter Visit Diagnoses Not on filedocumented in this encounter Care Teams Rug Designer Relationship Specialty Start Date End Date Sb Jones PA [address] [place] [address] PCP - General Internal Medicine 05/27/23 documented as of this encounter
--- OUTSIDE RECORDS SUMMARY | 2024-03-25 14:00 | XMS_ITS | Encounter Summary ---
Author Organization [facility] [place] [place] [address] Care Team Providers Care Olive Brine Tester Name Role Phone Sb Jones Primary Care Provider [phone] Reason for Visit * Auth/Cert (Routine) Specialty Diagnoses / Procedures Referred By Contac t Referred To Contact Diagnoses Radiculopathy of lumbar region lumbar radiculopathy Procedures PRO INJECTION DX/THER SBST INTRLMNR LMBR/SAC W/IMG GDN INJECTION, EPIDURAL, LUMBAR OR SACRAL (CAUDAL), WITH IMAGING GUIDANCE (WRVU 1.8) Edwin Khan MD [facility] [place] [address] [facility] Referral ID Status Reason Start Date Expiration Date Visits Re quested Visits Authorized [id number] 1 1 Encounter Details Date Type Department Care Team (Latest Contact Info) Description 10/21/2023 8:45 AM EDT - 10/21/2023 9:49 AM EDT Hospital [place] [address] Edwin Khan MD [facility] [place] [address] Radiculopathy of lumbar region Discharge Disposition: Home [...] Sign Reading Time Taken Comments Blood Pressure 145/93 10/21/2023 9:07 AM EDT Pulse 72 10/21/2023 9:07 AM EDT Temperature - - Respiratory Rate - - Oxygen Saturation 99% 10/21/2023 9:40 AM EDT Inhaled Oxygen Concentration - - Weight 102.1 kg (225 lb) 10/21/2023 9:07 AM EDT Height 182.9 cm (6') 10/21/2023 9:07 AM EDT Body Mass Index 30.52 10/21/2023 9:07 AM EDT documented in this encounter Medications at Time of Discharge Medication Sig Dispensed Refills Start Date End Date drgegqf-cbpxhppwsjxik-ix ffeine (EXCEDRIN MIGRAINE) 250-250-65 mg Tablet Take 2 tablets by mouth every 6 hours as needed for Pain. Lactobacillus acidophilus 500 million cell Capsule Take 1 capsule by mouth Daily at Noon. 06/14/2023 UNKNOWN TO PATIENT nightly. THC tincture (oil under tongue) gabapentin (Neurontin) 300 mg capsule nightly. 05/08/2023 [...] Take 1 tablet by mouth daily. 02/23/2019 levothyroxine (Synthroid) 50 mcg Tablet Take 50 mcg by mouth daily. 05/23/2022 01/07/2024 documented as of this encounter H&P Notes * Parmjit Esteves DO - 10/21/2023 9:14 AM EDT Patient Name: Som Judge Patient Age: 53 y.o. Birthdate: 1970 Admit date: (Not on file) Attending Physician: Edwin Khan MD [facility] [place] PREPROCEDURE HISTORY AND PHYSICAL HPI: Som Judge is a 53 y.o. male who presents today for: Procedure: Lumbar Epidural Steroid Injection - Interlaminar L5-S1 The history is obtained from the patient, and I have reviewed medical records provided by the referring physician, located in the electronic medical record to fill in gaps in the patient's recollection of events, treatments and outcomes. There have been no acute changes in the patients complaints or symptoms since previous assessment on 09/20/23. Pre-procedure VAS: 4/10 ROS: Patient denies recent fever, chills, infection, wounds, hospitalizations, ED visits, use of antibiotics. Pertinent positives and negatives otherwise noted in the HPI. I have reviewed the patient's past medical history, past surgical history, list of medications, allergies, family history and social history as documented in the electronic medical record. Physical Examination: Please see previous evaluation performed on 09/20/23, by Lacey Gleason APRN. Constitutional: Pt oriented to person, place, and time. Appears well-developed and well-nourished. No distress. HENT: Normocephalic and atraumatic. Pulmonary/Chest: Effort normal. Neurological: Alert and oriented to person, place, and time. No cranial nerve deficit. Moves all extremities at least antigravity. Skin: Skin is warm and dry. No rash noted. Not diaphoretic. Psychiatric: Normal mood and affect. Radiologic Data: Relevant imaging was reviewed today. New Imaging: NA Labs: No labs required Assessment and Plan: lumbar radiculopathy Please refer to the previous assessment by Lacey Gleason APRN, on 09/20/23, for justification of medical necessity for planned Lumbar Epidural Steroid Injection - Interlaminar L5-S1. Addressed all questions and concerns. Nursing intake/checklist reviewed. Medications holds confirmed. Risks and benefits discussed with patient. No contraindications to the procedure at this time, will proceed. Parmjit Esteves DO Fellow Physician [facility] [place] [phone] / documented in this encounter Miscellaneous Notes * Op Note - Edwin Khan MD - 10/21/2023 9:34 AM EDT Pain Management Operative Note Patient Name: Som Judge : [id number] MR#: [id number] Case Date: 10/21/2023 Surgeon: Surgeon(s) and Role: * Edwin Khan MD - Primary * Parmjit Esteves DO - Fellow - Assisting Present on Admission: Radiculopathy of lumbar region Postoperative diagnosis: Same Procedure(s) (LRB): INJECTION, EPIDURAL, LUMBAR OR SACRAL (CAUDAL), WITH IMAGING GUIDANCE (WRVU 1.8) (N/A) LUMBAR INTERLAMINAR EPIDURAL STERIOID INJECTION PROCEDURE NOTE - L5-S1 Mr. Som Judge has been referred to the [facility] for a lumbar epidural steroid injection [place] [address]. The patient complains of low back pain with pain radiating down the bilateral leg. Mr. Judge was greeted by the [...] point and subcutaneous tissues, an 18 gauge 5 inch Touhy needle was placed and advanced under fluoroscopic guidance and withloss of resistance technique into the L5-S1 epidural [...] in nursing records. PLAN: Follow up with Ms.Trudy Victorino APRN in 3-5 weeks. May use a 3.5 in [place] for future injections. Post procedure instruction was given as documented in nursing documentation and having met discharge criteria, he was discharged from the Pain Management Center. The procedure was performed by Dr. Esteves under my supervision. I was the attending physician supervising the fellow in the above care and I was present with the fellow for the entire procedure. Edwin Khan MD Attending Physician [facility] [address] [address] / CC: KAVITHA Alatorre [facility] [place] [place] [address] [address] documented in this encounter Plan of Treatment Upcoming Encounters Date Type Department Care Team (Late st Contact Info) Description 05/05/2024 8:00 AM EST Office Visit Physical Therapy at [facility] [address] [place] [address] Kierra Moreno, PT [facility] PHYSICAL MEDICINE & [place] [address] 05/05/2024 9:00 AM EST Office Visit Functional Judaism Program at [facility] [address] [place] [address] Mireya Nicole, OT 05/19/2024 8:00 AM EST Office Visit Physical Therapy at [facility] [address] [place] [address] Kierra Moreno, PT [facility] PHYSICAL MEDICINE & [place] [address] 06/02/2024 9:00 AM EST Office Visit Physical Therapy at [facility] [address] [place] [address] Kierra Moreno, PT [facility] PHYSICAL MEDICINE & [place] [address] documented as of this encounter Procedures Procedure Name Priority Date/Time Associated Diagnosis Comments Injection Dx/Ther Sbst Intrlmnr Lmbr/Sac W/Img Gdn (00007) 10/21/2023 9:19 AM EDT Radiculopathy of lumbar region INJECTION, EPIDURAL, LUMBAR OR SACRAL (CAUDAL), WITH IMAGING GUIDANCE Routine 10/21/2023 9:03 AM EDT Radiculopathy of lumbar region documented in this encounter Visit Diagnoses Diagnosis Radiculopathy of lumbar region- Primary Thoracic or lumbosacral neuritis or radiculitis, unspecified documented in this encounter Admitting Diagnoses Diagnosis Radiculopathy of lumbar region Thoracic or lumbosacral neuritis or radiculitis, unspecified documented in this encounter Active and Recently Administered Medications Times are shown in EDT. PRN Medication Order 10/19/2023 10/20/2023 10/21/2023 iohexoL (Omnipaque) (240 mg/mL) solution (CANCELED) PRN, Starting on Sat10/21/23 at 0904, Until Sat10/21/23 at 1150, Intra-Operative (Intra-Procedure), Routine 903 (Given - Provid er: Parmjit Esteves, DO - Comment: lesi) lidocaine (pf) (Xylocaine) (10 mg/mL) 1% injection (CANCELED) PRN, Starting on Sat10/21/23 at 0904, Until Sat10/21/23 at 1150, Intra-Operative (Intra-Procedure), Routine 903 (Given - Provid er: Parmjit Esteves, DO - Comment: lesi) methylPREDNISolone acetate (DEPO-Medrol) (80 mg/mL) injection (CANCELED) PRN, Starting on Sat10/21/23 at 0904, Until Sat10/21/23 at 1150, Intra-Operative (Intra-Procedure), Routine 0904 (Given - Provid er: Parmjit Esteves, DO - Comment: delfino) documented in this encounter Care Teams Olive Brine Tester Relationship Specialty Start Date End Date Sb Jones PA [address] [place] [address] PCP - General Internal Medicine 05/27/23 documented as of this encounter
--- OUTSIDE RECORDS SUMMARY | 2024-03-25 14:00 | XMS_ITS | Encounter Summary ---
Author Organization [facility] [place] [address] Care Team Providers Care Drupal Web Developer Name Role Phone Sb Jones Primary Care Provider [phone] Encounter Details Date Type Department Care Team (Late st Contact Info) Description 10/22/2023 Telephone [place] [phone] Chantal Pat, RN Social History Tobacco Use [...] Miscellaneous Notes * Telephone Encounter - Chantal Pat, RN - 10/23/2023 8:13 AM EDT OUTGOING call to pt in response to msgs from Dr. Khan and Lacey Gleason [employer]: 10/22/23 10:53 PM Agree with the plan. He has significant stenosis, but there was no CSF on aspiration when we got into the epidural space. The spread of contrast looks no different than prior injection. Despite all of that, he could still be experiencing post-dural p uncture headache. Fartun- Would you please check in on him tomorrow? If symptoms continue, we can discuss a potential blood patch. Thank you. Lacey Wing, [employer] to Me 10/22/23 6:[address] Esteves as well on my reply so he is aware. Thank you Lacey Castro, RADHA to Me Edwin Khan MD Bui, Parmjit H, DO 10/22/23 6:32 PM I called and spoke with the patient. Headache was light yesterday but was worse today. The headacheis occipital and is positional. He is more comfortable while lying down. Advised him to increase fluids and take an anti-inflammatory since tylenol alone is not helping enough. He has no nausea, vomiting, or vision changes. ED precautions were reviewed. Fartun, will you please call and check on him tomorrow? Thank you, Lacey COLÓN: Not worse, about the same. Better when lying back. Ibuprofen 600mg last night and this a.m. along with alternating Tylenol. N/V: No Vision changes: No Weakness: Nothing new Numbness/tingling: Nothing new Voiding difficulties: No Incontinence: No Fever: No Recommendations: Continue alternating Tylenol/ibuprofen; discussed alternating schedule. Continue increased fluid intake. Will contact pt at end of day. Will forward msg to Lacey and Dr. Khan. * Telephone Encounter - Chantal Pat, RN - 10/22/2023 2:27 PM EDT VM from pt stating he had procedure with Dr. Khan yesterday (Lacey Gleason APRN pt) and is having some symptoms. Req'ing nurse RC. Reviewed chart. LESI yesterday. OUTGOING call to pt. LVM including advisement that any red flag symptoms, specifically new onset/worsening leg weakness, voiding difficulties, saddle anesthesia (with definition), or incontinence, proceed to local ED. Rekaty'maryann CARDENAS, supplying my ext [phone]. VM for RC from pt. OUTGOING call to pt again. C/o having light - mod COLÓN. Pain: towards back of head Vision changes: No Weakness: Nothing more than normal Incontinence: No Voiding difficulties: No Fever: No Skin color/tem: No Numbness/tingling: No Interventions: Tylenol 1000mg yesterday once, again once today. Recommendations: Continue Tylenol as directed on label/PCP recommendations. Add in ibuprofen as directed (pt confirmed able to take), continue ice pack 20 on/ 20 off as frequently as tolerated. Any sign of above red flags, proceed to local ED. Pt acknowledged. Will forward info to Dr. Khan and Lacey Gleason APRN. documented in this encounter Plan of Treatment Upcoming Encounters Date Type Department Care Team (Late st Contact Info) Description 05/05/2024 8:00 AM EST Office Visit Physical Therapy at [facility] [address] [place] [address] Kierra Moreno, PT [facility] PHYSICAL MEDICINE [place] [address] 05/05/2024 9:00 AM EST Office Visit Functional Pentecostalism Program at [facility] [address] [place] [address] Mireya Nicole, OT 05/19/2024 8:00 AM EST Office Visit Physical Therapy at [facility] [address] [place] [address] Kierra Moreno, PT [facility] PHYSICAL BENY & [place] [address] 06/02/2024 9:00 AM EST Office Visit Physical Therapy at [facility] [address] [place] [address] Kierra Moreno, PT [facility] PHYSICAL MEDICINE & [place] [address] documented as of this encounter Visit Diagnoses Not on filedocumented in this encounter Care Teams Drupal Web Developer Relationship Specialty Start Date End Date Sb Jones PA [address] [place] [address] PCP - General Internal Medicine 05/27/23 documented as of this encounter
--- OUTSIDE RECORDS SUMMARY | 2024-03-25 14:00 | XMS_ITS | Encounter Summary ---
Author Organization [facility] [place] [address] Care Team Providers Care Supervisor Microwave Name Role Phone Sb Jones Primary Care Provider [phone] Encounter Details Date Type Department Care Team (Late Contact Info) Description 08/01/2023 Telephone [place] [phone] Trinidad Galindo RN Social History Tobacco Use Types Packs/Day [...] encounter Miscellaneous Notes * Telephone Encounter - Trinidad Galindo RN - 08/01/2023 2:54 PM EST Patient calls the office leaving a message on the RN voicemail stating that he is experiencing somesymptoms and he is not sure what to do about them. He states that he called his PCP and they were not sure either. Returned call to patient, was unable to reach patient by phone, left message on patient identified voicemail asking for a return call or for him to send a message via the [facility] portal. documented in this encounter Plan of Treatment Upcoming Encounters Date Type Department Care Team (Late st Contact Info) Description 05/05/2024 8:00 AM EST Office Visit Physical Therapy at [facility] [address] [place] [address] Kierra Moreno, PT [facility] PHYSICAL MEDICINE & [place] [address] 05/05/2024 9:00 AM EST Office Visit Functional Scientologist Program at [facility] [address] [place] [address] Mireya Nicole, OT 05/19/2024 8:00 AM EST Office Visit Physical Therapy at [facility] [address] [place] [address] Kierra Moreno, PT [facility] PHYSICAL [place] [address] 06/02/2024 9:00 AM EST Office Visit Physical Therapy at [facility] [address] [place] [address] Kierra Moreno, PT [facility] PHYSICAL MEDICINE & REHABILFORM[facility] [address] documented as of this encounter Visit Diagnoses Not on filedocumented in this encounter Care Teams Supervisor Microwave Relationship Specialty Start Date End Date Sb Jones PA [address] [place] [address] PCP - General Internal Medicine 05/27/23 documented as of this encounter
--- OUTSIDE RECORDS SUMMARY | 2024-03-25 14:00 | XMS_ITS | Encounter Summary ---
Author Organization [facility] Address [facility] [place] [address] Care Team Providers Care Technical Manager Chemical Plant Name Role Phone Romeo Corbin MD Primary Care Provider [phone] Encounter Details Date Type Department Care Team (Late st Contact Info) Description 2023 Telephone [place] [address] Lisa Sharp Social History Tobacco Use Types Packs/Day Years [...] encounter Miscellaneous Notes * Telephone Encounter - Lisa Sharp - 2023 12:38 PM EDT LVM on 03/20/23 in regards to scheduling a follow up with Lacey Gleason APRN. Please call [phone]. Note: Follow up to discuss injections documented in this encounter Plan of Treatment Upcoming Encounters Date Type Department Care Team (Late st Contact Info) Description 05/05/2024 8:00 AM EST Office Visit Physical Therapy at [facility] [address] [place] [address] Kierra Moreno, PT [facility] PHYSICAL MEDICINE & [place] [address] 05/05/2024 9:00 AM EST Office Visit Functional Caodaism Program at [facility] [address] [place] [address] Mireya Nicole, OT 05/19/2024 8:00 AM EST Office Visit Physical Therapy at [facility] [address] [place] [address] Kierra Moreno, PT [facility] PHYSICAL MEDICINE [place] [address] 06/02/2024 9:00 AM EST Office Visit Physical Therapy at [facility] [address] [place] [address] Kierra Moreno, PT [facility] PHYSICAL MEDICINE [place] [address] documented as of this encounter Visit Diagnoses Not on filedocumented in this encounter Care Teams Technical Manager Chemical Plant Relationship Specialty Start Date End Date Romeo Corbin MD [address] [place] [address] PCP - General 09/23/14 05/26/23 documented as of this encounter
--- OUTSIDE RECORDS SUMMARY | 2024-03-25 14:00 | XMS_ITS | Encounter Summary ---
Author Organization [facility] Address [facility] [place] [address] Care Team Providers Care Hard Tile Setter Name Role Phone Sb Jones Primary Care Provider [phone] Encounter Details Date Type Department Care Team (Late st Contact Info) Description 09/02/2023 Telephone [facility] [place] [address] Chantal Pat, RN Social History [...] Telephone Encounter - Chantal Pat, RN - 09/04/2023 8:23 AM EDT OUTGOING call to pt to discuss Lacey's response to my msg from last evening. Went ahead and had Sultana slot pt into 09/19 @ 7:30 arrival appt with Lacey (in-person). LVM req'ing RC at [phone] ext. Incoming RC from pt: Pain = Up this morning, feeling better after ED meds. Incontinence: Diarrhea improved, solid now Weakness: Sensation better in legs this a.m., but as day has worn on = numbness has increased. Saddle Anesthesia: Improved numbness, slight increase in achyness as numbness has lessened. Pt feels he is achy more because he can actually feel in this area. Pt would like to keep 4/5 appt, continue with recommendations of ibuprofen and ice/heat, etc. Pt voices understanding that if any of the above red flag symptoms worsen, we recommend ED, and req'd pt call our office first to notify us. * Telephone Encounter - Chantal Pat RN - 09/03/2023 4:02 PM EDT OUTGOING call to pt after ED recommendation yesterday. [facility] ED this a.m. Reports rt leg above sock decreased sensation, lt leg ok, rt leg weakness. Given toradol shot, lidocaine patch, Medrol (1 dose), flexeril (1 dose). Interventions: Alternating ice/heat, stretching. Pain: same. Today ave 10/24 Weakness: Rt leg no improvement (feet less tingly/numb) Saddle anesthesia: testicles light-up feeling more sensitive during exacerbation, so possibly surrounding areas seem less sensitive Voiding difficulties: Diarrhea = stools are more solid Recommended: Appt with Lacey yenifer (possible ED if she recommends). Ibuprofen as directed on label. Ice at spinal column, heat more to muscle areas. OTC lidocaine patches/creams as directed on box. Pt prefers Salonpaz. Will forward message/info to Lacey. * Telephone Encounter - Chantal Pat RN - 09/02/2023 3:03 PM EDT Incoming transferred call from Kajal. Pt req'ing repeat inj. Procedure Requested: What is your current Pain Score (1-10 range)? 2-8/10 Does your pain make activities of daily living difficult? If yes, please describe what activity andlevel of difficulty. Standing, walking, bending, lifting, sleeping. Moderate difficulty. Pt reportsmoving/pulling a trailer on Saturday, and now has increase in symptoms. States he was not evaluatedsince. Incontinence: No Weakness: if I squat down, I can't get back up Voiding difficulties: diarrhea, but consistent with previous episodes of exacerbation Saddle anesthesia: Yes but states consistent with previous episodes of exacerbation of back pain Recommended: local ED for evaluation d/t multiple red flags. Local ED = [facility]. Will forward msg to Lacey Gleason APRN to make her aware. 09/02 Conversation: Pain Asmt (include sidedness, characteristics & distribution): low, low back, radiates down to both butt cheeks, Rt leg to foot at times, Lt leg to Lt knee; dull ache, throbbing, tingling, sharpshooting pain (If a repeat injection, note if pain is the same or changed since prior to last inj) Different sidebias (R>L) documented in this encounter Plan of Treatment Upcoming Encounters Date Type Department Care Team (Late st Contact Info) Description 05/05/2024 8:00 AM EST Office Visit Physical Therapy at [facility] [address] [place] [address] Kierra Moreno, PT [facility] PHYSICAL MEDICINE & [place] [address] 05/05/2024 9:00 AM EST Office Visit Functional Episcopalian Program at [facility] [address] [place] [address] Mireya Nicole, OT 05/19/2024 8:00 AM EST Office Visit Physical Therapy at [facility] [address] [place] [address] Kierra Moreno, PT [facility] PHYSICAL MEDICINE & [place] [address] 06/02/2024 9:00 AM EST Office Visit Physical Therapy at [facility] [address] [place] [address] Kierra Moreno, PT [facility] PHYSICAL BENY & [place] [address] documented as of this encounter Visit Diagnoses Not on filedocumented in this encounter Care Teams Hard Tile Setter Relationship Specialty Start Date End Date Sb Jones PA [address] [place] [address] PCP - General Internal Medicine 05/27/23 documented as of this encounter
--- OUTSIDE RECORDS SUMMARY | 2024-03-25 14:00 | XMS_ITS | Encounter Summary ---
Author Organization [facility] [place] [address] Care Team Providers Care Lab Animal Technologist Name Role Phone Sb Jones Primary Care Provider Reason for Referral * Consultation (Routine) - Authorized Specialty Diagnoses / Procedures Referred By Contac t Referred To Contact Orthopaedics Diagnoses Radiculopathy of lumbar region Pelvic pain in male Jennifer Vang APRN [facility] [place] [address] [facility] [address] [place] [address] Referral ID Status Reason Start Date Expiration Date Visits Requested Visits Authorized [id number] Authorized Functional Restorative Program 11/12/2023 11/11/2024 54 53 * Consultation (Routine) - Closed Specialty Diagnoses / Procedures Referred By Contac t Referred To Contact [facility] Diagnoses Radiculopathy of lumbar region Pelvic pain in male Empowered Relief - Taj - MILAN green light Jennifer Vang BARREL CLEANER [facility] [place] [address] [facility] [place] [address] Referral ID Status Reason Start Date Expiration Date V isits Requested Visits Authorized [id number] Closed Consult, Test & Treat 11/12/2023 11/11/2024 1 1 Reason for Visit * Reason Comments Follow-up GAP priorPelvic and RT testicle pain Encounter Details Date Type Department Care Team (Late st Contact Info) Description 11/12/2023 10:00 AM EDT Office Visit [place] [address] Jennifer Vang APRN [facility] [address] Pelvic pain in male (Primary Dx); Radiculopathy of lumbar region Social History Tobacco [...] Sign Reading Time Taken Comments Blood Pressure - - Pulse - - Temperature - - Respiratory Rate - - Oxygen Saturation - - Inhaled Oxygen Concentration - - Weight 104.3 kg (230 lb) 11/12/2023 9:51 AM EDT Height 182.9 cm (6') 11/12/2023 9:51 AM EDT Body Mass Index 31.19 11/12/2023 9:51 AM EDT documented in this encounter Progress Notes * Renu Barrientos - 11/12/2023 10:00 AM EDT Images from the original note were not included. [facility] Functional Restorationist Medical Clearance Chief complaint requiring rehabilitation: Lumbar back pain. S: Som is being seen today for medical clearance for the Functional Restorationist Program, a graduated exercise program aimed at the patient achieving his functional goals, despite having chronic pain. His pain pattern is described as pelvic girdle and testicular pain with associated diarrhea during flares and radiation of pain with tingling down the bilateral lower extremities and into the toes. His current treatments include walking 3/4 of a mile daily. The patient's current goals are: The patient and his would like to take a trip to [place] and he wants to be able to walk 3-5 miles. 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; unload and load fish fryer; Be able to chop, lift and carry wood; Activity limiting health problems: potential sleep apnea, study and assessment pending for December 2023 Vaccination status: Up-to-date Brief physical examination: Resting Vital Signs: BP 146/90 , 139/90 BS CTA, Normal neurological exam. Gait: normal. BP: 139/90 Gait: Balance on one leg: Reflexes: symetrical Cardiac: heart without murmur or gallop. O: Please see Ms Nicole's note from today for details of the physical testing and current functional level. In general, the patient's current level of functioning is in the medium demand leveland goals are in the medium to heavy demand level. A: There is a gap between his goals and abilities. This was a counseling visit for 40 minutes out of 40 talking about symptom management and functional recovery, reviewing the content of FRP, and logistics specific to participation including, travel, lodging, exercise, and activity planning. We have mutually decided to proceed with the following plan. P: Som is a candidate for functional mormonism. An order was placed for this as well as Empowered relief Jennifer Vang, , PLASTICS FACTORY WORKER-BC, BARREL CLEANER Nurse practitioner Pain management [facility] Documented by Renu Barrientos Proposal Development Manager, as dictated by Jennifer Vang NP. Gait: normal. documented in this encounter Plan of Treatment Upcoming Encounters Date Type Department Care Team (Late st Contact Info) Description 05/05/2024 8:00 AM EST Office Visit Physical Therapy at [facility] [address] [place] [address] Kierra Moreno, PT [facility] PHYSICAL MEDICINE & [place] [address] 05/05/2024 9:00 AM EST Office Visit Functional Restorationist Program at [facility] [address] [place] [address] Mireya Nicole, OT 05/19/2024 8:00 AM EST Office Visit Physical Therapy at [facility] [address] [place] [address] Kierra Morneo, PT [facility] PHYSICAL MEDICINE & [place] [address] 06/02/2024 9:00 AM EST Office Visit Physical Therapy at [facility] [address] [place] [address] Kierra Moreno, PT [facility] PHYSICAL MEDICINE & [place] [address] Scheduled Referrals Name Type Priority Associated Diagnoses Orde r Schedule Amb Referral to Active Pain Care Services Outpatient Referral Routine Radiculopathy of lumbar region Pelvic pain in male Ordered: 11/12/2023 Referral to Medical Clearance (FRP Only) Outpatient Referral Routine Radiculopathy of lumbar region Pelvic pain in male Ordered: 11/12/2023 documented as of this encounter Visit Diagnoses Diagnosis Pelvic pain in male- Primary Abdominal pain, other specified site Radiculopathy of lumbar region Thoracic or lumbosacral neuritis or radiculitis, unspecified documented in this encounter Care Teams Lab Animal Technologist Relationship Specialty Start Date End Date Sb Jones PA [address] [place] [address] PCP - General Internal Medicine 05/27/23 documented as of this encounter
--- OUTSIDE RECORDS SUMMARY | 2024-03-25 14:00 | XMS_ITS | Encounter Summary ---
Author Organization [facility] Address [facility] [place] [address] Care Team Providers Care Solution Consultant Name Role Phone Sb Jones Primary Care Provider Encounter Details Date Type Department Care Team (Latest Contact Info) Description 11/12/2023 Travel Social History Tobacco Use Types Packs/Day [...] Therapy at [facility] [address] [place] [address] Kierra Moreno, PT [facility] PHYSICAL MEDICINE & [place] [address] 05/05/2024 9:00 AM EST Office Visit Functional Sikh Program at [facility] [address] [place] [address] Mireya Nicole, OT 05/19/2024 8:00 AM EST Office Visit Physical Therapy at [facility] [address] [place] [address] Kierra Moreno, PT [facility] PHYSICAL MEDICINE & [place] [address] 06/02/2024 9:00 AM EST Office Visit Physical Therapy at [facility] [address] [place] [address] Kierra Moreno, PT [facility] PHYSICAL MEDICINE & [place] [address] documented as of this encounter Visit Diagnoses Not on filedocumented in this encounter Care Teams Solution Consultant Relationship Specialty Start Date End Date Sb Jones PA [address] [facility] 1 [place] [address] PCP - General Internal Medicine 05/27/23 documented as of this encounter
--- OUTSIDE RECORDS SUMMARY | 2024-03-25 14:00 | XMS_ITS | Encounter Summary ---
Author Organization [facility] Address [facility] [place] [address] Care Team Providers Care Head Refrigeration Engineer Name Role Phone Romeo Corbin MD Primary Care Provider [phone] Encounter Details Date Type Department Care Team (Latest Contact Info) Description 05/14/2023 Travel Social History Tobacco Use Types Packs/Day [...] at [facility] [address] [place] [address] Kierra Moreno, PT [facility] PHYSICAL MEDICINE & [place] [address] 05/05/2024 9:00 AM EST Office Visit Functional Sikhism Program at [facility] [address] [place] [address] Mireya Nicole, OT 05/19/2024 8:00 AM EST Office Visit Physical Therapy at [facility] [address] [place] [address] Kierra Moreno, PT [facility] PHYSICAL MEDICINE & [place] [address] 06/02/2024 9:00 AM EST Office Visit Physical Therapy at [address] [place] [address] Kierra Moreno, PT [facility] PHYSICAL MEDICINE & [place] [address] documented as of this encounter Visit Diagnoses Not on filedocumented in this encounter Care Teams Head Refrigeration Engineer Relationship Specialty Start Date End Date Romeo Corbin MD [address] [place] [address] PCP - General 09/23/14 05/26/23 documented as of this encounter
--- OUTSIDE RECORDS SUMMARY | 2024-03-25 14:00 | XMS_ITS | Encounter Summary ---
Author Organization [facility] Address [facility] [place] [address] Care Team Providers Care Photo Studio Assistant Name Role Phone Sb Jones Primary Care Provider [phone] Encounter Details Date Type Department Care Team (Latest Contact Info) Description 09/20/2023 Travel Social History Tobacco Use Types Packs/Day [...] AM EST Office Visit Physical Therapy at [facility] [address] [place] [address] Kierra Moreno, PT [facility] PHYSICAL MEDICINE & [place] [address] 05/05/2024 9:00 AM EST Office Visit Functional Congregation Program at [facility] [address] [place] [address] Mireya Nicole, OT 05/19/2024 8:00 AM EST Office Visit Physical Therapy at [facility] [address] [place] [address] Kierra Moreno, PT [facility] PHYSICAL MEDICINE & [place] [address] 06/02/2024 9:00 AM EST Office Visit Physical Therapy at [facility] [address] [place] [address] Kierra Moreno, PT [facility] PHYSICAL MEDICINE & [place] [address] documented as of this encounter Visit Diagnoses Not on filedocumented in this encounter Care Teams Photo Studio Assistant Relationship Specialty Start Date End Date Sb Jones PA [address] [facility] 1 [place] [address] PCP - General Internal Medicine 05/27/23 documented as of this encounter
--- OUTSIDE RECORDS SUMMARY | 2024-03-25 14:00 | XMS_ITS | Encounter Summary ---
Author Organization [facility] [place] [address] Care Team Providers Care Senior Construction Project Manager Name Role Phone Romeo Corbin MD Primary Care Provider [phone] Encounter Details Date Type Department Care Team (Latest Contact Info) Description 11/06/2022 2:30 PM EDT TH Visit (TeleHealth) [place] [address] Lacey Gleason DINING ROOM MANAGER [facility] [place] [address] Radiculopathy of lumbar region Social History Tobacco [...] Progress Notes * Lacey Gleason APRN - 11/06/2022 2:30 PM EDT [facility] [place] [address] Phone: PAIN MANAGEMENT TELEPHONE VISIT NOTE DATE OF VISIT 11/06/2022 Patient Som Judge 1970 REFERRING PROVIDER Kuashik Mccauley APRN [address] [place] [address] PRIMARY CARE PROVIDER Romeo Corbin MD [X] [...] Reason for Visit: Som Judge is a 52 y.o. male with lower back pain radiating into the groin/testicles and abdomen as well as into the buttocks and posterior thighs worse on the left. He had an LESI on 10/15. Has noticed a marked decrease in overall pain. Within 3-5 days began to see an improvement. It has continued to improve and he is now doing very well. He still feels weak but is much better able to move and perform ADLs He is continuing to do PT with pool one day per week and land one day per week. Not able to resume running yet but is making progress. Pain score: 0/10 Sitting increases nto 2-3/10 as does some activities. Sleeping through the night again now. Function: Medications: Using THC/CBD tincture at . Patient denies any new neurological symptoms. Denies ataxia, uvaldo weakness. Denies recent hospitalizations since last visit. Denies fever, chills. Still having GI issues and is scheduled for testing beginning on . Physical Exam: On limited telephonic examination appropriate speech and communication. Constitutional - Ax3 Psychiatric - normal affect , responds normally Respiratory - normal respiratory effort Musculoskeletal - Per report normal gait. Stiff when initiating gait. No residuals from procedure. Neurologic - Alert and oriented x 3 with intact recent memory, attention, concentration, language function, and affect. Speech is fluent and prosodic with no dysarthria appreciated. Per report, able to weight bear, lift legs, bend at hips while standing, toe and heel walk without issues. Imaging Studies: No new imaging. ? Assessment Som Judge is a 52 y.o. male with lower back pain radiating into the groin/testicles and abdomen as well as into the buttocks and posterior thighs worse on the left. He had an LESI on 10/15. Plan Continue with PT and HEP Patient will return for f/u on a prn basis. May consider repeating injection up to 3 times in 12 month period. At this time there are no red flag symptoms on history. Patient instructed to go to emergency department if new or worsening neurological symptoms develop. Patient verbalized agreement of the plan. All of patient's questions were answered to his satisfaction. Time spent on this visit reflects time evaluating the patient pre-visit, during the visit and post-visit. Total time spent 25 minutes by telephone. Phone Visits: PCV12 (5-10 Minutes) PCV13 (11-20 Minutes) PCV14 (21 or > Minutes) Lacey Gleason, MSN, DINING ROOM MANAGER [facility] [place] [id number] / documented in this encounter Plan of Treatment Upcoming Encounters Date Type Department Care Team (Late st Contact Info) Description 05/05/2024 8:00 AM EST Office Visit Physical Therapy at [facility] [address] [place] [address] Kierra Moreno, PT [facility] PHYSICAL MEDICINE & [place] [address] 05/05/2024 9:00 AM EST Office Visit Functional Zoroastrianism Program at [facility] [address] [place] [address] Mireya Nicole OT 05/19/2024 8:00 AM EST Office Visit Physical Therapy at [facility] [address] [place] [address] Kierra Moreno, PT [facility] PHYSICAL MEDICINE [place] [address] 06/02/2024 9:00 AM EST Office Visit Physical Therapy at [address] [place] [address] Kierra Moreno, PT [facility] PHYSICAL MEDICINE & [place] [address] documented as of this encounter Visit Diagnoses Diagnosis Radiculopathy of lumbar region Thoracic or lumbosacral neuritis or radiculitis, unspecified documented in this encounter Care Teams Senior Construction Project Manager Relationship Specialty Start Date End Date Romeo Corbin MD [address] [place] [address] PCP - General 09/23/14 05/26/23 documented as of this encounter
--- OUTSIDE RECORDS SUMMARY | 2024-03-25 14:00 | XMS_ITS | Encounter Summary ---
Author Organization [facility] Address [facility] [place] [address] Care Team Providers Care Certified Medical Technician Assistant Name Role Phone Romeo Corbin MD Primary Care Provider [phone] Encounter Details Date Type Department Care Team (Latest Contact Info) Description 11/07/2022 Travel Social History Tobacco Use Types Packs/Day [...] AM EST Office Visit Physical Therapy at [facility] [address] [place] [address] Kierra Moreno, PT [facility] PHYSICAL MEDICINE & [place] [address] 05/05/2024 9:00 AM EST Office Visit Functional Rastafarian Program at [facility] [address] [place] [address] Mireya Nicole, OT 05/19/2024 8:00 AM EST Office Visit Physical Therapy at [facility] [address] [place] [address] Kierra Moreno, PT [facility] PHYSICAL MEDICINE & [place] [address] 06/02/2024 9:00 AM EST Office Visit Physical Therapy at [address] [place] [address] Kierra Moreno, PT [facility] PHYSICAL MEDICINE & [place] [address] documented as of this encounter Visit Diagnoses Not on filedocumented in this encounter Care Teams Certified Medical Technician Assistant Relationship Specialty Start Date End Date Romeo Corbin MD [address] [place] [address] PCP - General 09/23/14 05/26/23 documented as of this encounter
--- OUTSIDE RECORDS SUMMARY | 2024-03-25 14:00 | XMS_ITS | Encounter Summary ---
Author Organization [facility] [place] [address] Care Team Providers Care Corrugated Box Machine Operator Name Role Phone Sb Jones Primary Care Provider [phone] Encounter Details Date Type Department Care Team (Latest Contact Info) Description 06/19/2023 10:15 AM EST TH Visit (TeleHealth) [place] [address] Lacey Gleason SALAD BAR CLERK [facility] [place] [address] Radiculopathy of lumbar region Social History Tobacco [...] Progress Notes * Lacey Gleason APRN - 06/19/2023 10:15 AM EST [facility] [place] [address] Phone: PAIN MANAGEMENT TELEPHONE VISIT NOTE DATE OF VISIT 06/19/2023 Patient Som Judge 1970 REFERRING PROVIDER Romeo Corbin MD [address] [place] [address] PRIMARY CARE PROVIDER KAVITHA Alatorre [X] Consent: [...] left. Patient had an LESI on 05/28. It took approximately 1.5 weeks to improve Pain score: 2/10 Function: Does HEP Medications: Using THC/CBD tincture at hs. acetaminophen Patient denies any new neurological symptoms. Denies ataxia, uvaldo weakness. Denies recent hospitalizations since last visit. Denies fever, chills. Prior injections LESI 10/15/2022 90% improvement lasting over 4 months with 50% improvement in function. Physical Exam: [...] without issues. Imaging Studies: No new imaging. Assessment Som Judge is a 53 y.o. male with lower back pain radiating into the groin/testicles and abdomen as well as into the buttocks and posterior thighs worse on the left. Patient had an YADY on 05/28and has once again had over 90% improvement in his pain and over 50% improvement in function. He isplanning to begin a yoga class. He finds that the combination of PT and the injections work very well to control his pain and allow him to continue working. MRI shows some slight recession of the disc bulge at L4-5, otherwise findings are similar to last imaging. 1. Radiculopathy of lumbar region Plan Reviewed imaging results with patient discussing likely pain generators. Patient will return in 4 months for interval follow up. May consider repeating the injection up to 3 time in a 12 month period. Continue with HEP At this time there are no red flag symptoms on history. Patient instructed to go to emergency department if new or worsening neurological symptoms develop. Patient verbalized agreement of the plan. All of patient's questions were answered to his satisfaction. Time spent on this visit reflects time evaluating the patient pre-visit, during the visit and post-visit. Total time spent 14 minutes by telephone. Phone Visits: PCV12 (5-10 Minutes) PCV13 (11-20 Minutes) PCV14 (21 or > Minutes) Lacey Gleason, MSN, SALAD BAR CLERK [facility] [address] [address] / documented in this encounter Plan of Treatment Upcoming Encounters Date Type Department Care Team (Late st Contact Info) Description 05/05/2024 8:00 AM EST Office Visit Physical Therapy at [facility] [address] [place] [address] Kierra Moreno, PT [facility] PHYSICAL MEDICINE & [place] [address] 05/05/2024 9:00 AM EST Office Visit Functional Church Program at [facility] [address] [place] [address] Mireya Nicole OT 05/19/2024 8:00 AM EST Office Visit Physical Therapy at [facility] [address] [place] [address] Kierra Moreno, PT [facility] PHYSICAL MEDICINE & [place] [address] 06/02/2024 9:00 AM EST Office Visit Physical Therapy at [facility] [address] [place] [address] Kierra Moreno, PT [facility] PHYSICAL MEDICINE & [place] [address] documented as of this encounter Visit Diagnoses Diagnosis Radiculopathy of lumbar region Thoracic or lumbosacral neuritis or radiculitis, unspecified documented in this encounter Care Teams Corrugated Box Machine Operator Relationship Specialty Start Date End Date Sb Jones PA [address] [facility] 1 [place] [address] PCP - General Internal Medicine 05/27/23 documented as of this encounter
--- OUTSIDE RECORDS SUMMARY | 2024-03-25 14:00 | XMS_ITS | Encounter Summary ---
[place] [address] Care Team Providers Care Senior Mortgage Underwriter Name Role Phone Romeo Corbin MD Primary Care Provider [phone] Reason for Referral * Diagnostic Test (Routine) - Closed Specialty Diagnoses / Procedures Referred By Contac t Referred To Contact Radiology Diagnoses Irritable bowel syndrome with both constipation and diarrhea Procedures MRI Enterography wwo Contrast Paul Holman MD [facility] [place] [address] [place] [address] Referral ID Status Reason Start Date Expiration Date V isits Requested Visits Authorized [id number] Closed Specialty Service Requested 10/09/2022 12/07/2022 1 1 Reason for Visit * Diagnostic Test (Routine) - Closed Specialty Diagnoses / Procedures Referred By Contac t Referred To Contact Radiology Diagnoses Irritable bowel syndrome with both constipation and diarrhea Procedures MRI Enterography wwo Contrast Paul Holman MD [facility] [place] [address] [place] [address] Referral ID Status Reason Start Date Expiration Date V isits Requested Visits Authorized [id number] Closed Specialty Service Requested 10/09/2022 12/07/2022 1 1 Encounter Details Date Type Department Care Team (Latest Contact Info) Description 11/08/2022 1:38 PM EDT - 11/08/2022 11:59 PM EDT Hospital Encounter MRI at [facility] [place] [id number] Paul Holman MD [facility] [place] [address] Irritable bowel syndrome with both constipation and diarrhea Discharge Disposition: Home Social History Tobacco Use [...] Refills Start Date End Date acetaminophen (Tylenol) 325 mg Tablet Take 650 [...] Take 1 tablet by mouth daily. 02/23/2019 dicyclomine (Bentyl) 10 mg Capsule TAKE 2 CAPSULES BY MOUTH FOUR TIMES DAILY 08/03/2022 04/12/2023 Acidophilus-Pectin 75 million cell -100 mg Capsule Take 1 capsule by mouth daily. 06/29/2022 09/20/2023 loperamide (Imodium A-D) 2 mg Capsule TAKE 1 TABLET BY MOUTH EVERY 6 HOURS NEEDED FOR LOOSE STOOL 06/29/2022 04/12/2023 sertraline (ZOLOFT) 100 mg Tablet Take 200 mg by mouth daily. 06/28/2022 04/12/2023 levothyroxine (Synthroid) 50 mcg Tablet Take 50 mcg by mouth daily. 05/23/2022 01/07/2024 Prasterone, DHEA, 50 mg capsule Take 100 mg by mouth. 2022 meclizine (Antivert) 25 mg Tablet Take 1 tablet by mouth as needed. 10/04/2014 04/12/2023 ondansetron (Zofran) 8 mg Tablet Take 1 tablet by mouth as needed. 12/31/2019 04/12/2023 SUMAtriptan (Imitrex) 50 mg Tablet Take 1 tablet by mouth as needed. 07/25/2020 04/12/2023 lactobacillus combination no.8 3 billion cell Capsule Take by mouth daily. 10/28/2020 05/28/2023 POTASSIUM CITRATE-CITRIC ACID ORAL Take by mouth daily. 07/27/2020 023 documented as of this encounter Plan of Treatment Upcoming Encounters Date Type Department Care Team (Late st Contact Info) Description 05/05/2024 8:00 AM EST Office Visit Physical Therapy at [facility] [address] [place] [address] Kierra Moreno, PT [facility] PHYSICAL MEDICINE & [place] [address] 05/05/2024 9:00 AM EST Office Visit Functional Buddhism Program at [facility] [address] [place] [address] Mireya Nicole, OT 05/19/2024 8:00 AM EST Office Visit Physical Therapy at [facility] [address] [place] [address] Kierra Moreno, PT [facility] PHYSICAL MEDICINE & [place] [address] 06/02/2024 9:00 AM EST Office Visit Physical Therapy at [facility] [address] [place] [address] Kierra Moreno, PT [facility] PHYSICAL MEDICINE & [place] [address] documented as of this encounter Procedures Procedure Name Priority Date/Time Associated Diagnosis Comments MRI ENTEROGRAPHY WITH/WO CONTRAST Routine 11/08/2022 4:53 PM EDT Irritable bowel syndrome with both constipation and diarrhea documented in this encounter Results * MRI Enterography wwo Contrast (11/08/2022 4:53 PM EDT) Anatomical Region Laterality Modality Abdomen Magnetic Resonan ce Impressions 11/09/2022 8:25 AM EDT No evidence of inflammatory bowel disease. I have personally reviewed the image(s) and the resident's interpretation and agree with the findings, Som Waldrop MD at 11/09/2022 8:25 AM Thank you for letting us participate in the care of this patient. ??If you are a health care provider and have any questions regarding this report, please contact the number below. ??For patients who have questions please contact the health career development specialist that requested your imaging first. ? Electronically signed by: Som Waldrop MD, [facility] ([phone]), at 11/09/2022 8:25 AM Narrative 11/09/2022 8:25 AM EDT EXAMINATION: MRI ENTEROGRAPHY WWO CONTRAST CLINICAL HISTORY: chronic diarrhea - rule out crohns; normal colonoscopy TECHNIQUE: ??MRI of the abdomen and pelvis prior to and following the intravenous administration of 20ml of Dotarem. ??0.5mg glucagon was also administered. Breeza was administered as an oral contrast. COMPARISON: CT abdomen and pelvis 09/09/2020 FINDINGS: GI tract: No dilated small or large bowel, bowel wall thickening, or mesenteric inflammation. No mucosal hyperenhancement. Liver: Normal signal, no suspicious lesions. Few scattered sub-5 mm nonenhancing cysts. Bile ducts: Nondilated. Gallbladder: Multiple gallstones. Normal caliber wall. No pericholecystic fluid. Pancreas: Normal. Spleen: Normal. Adrenals: Normal. Kidneys: Bilateral simple renal cysts. No suspicious lesions. No dilatation of the collecting system. Lymph nodes: No lymphadenopathy. Reproductive structures: Normal. Osseous structures: No suspicious marrow signal abnormality. Abdominal wall: Fat-containing umbilical hernia. Procedure Note Som Waldrop MD - 11/09/2022 EXAMINATION: MRI ENTEROGRAPHY WWO CONTRAST CLINICAL HISTORY: chronic diarrhea - rule out crohns; normal colonoscopy TECHNIQUE: MRI of the abdomen and pelvis prior to and following theintravenous administration of 20ml of Dotarem. 0.5mg glucagon was also administered. Breeza was administered as an oral contrast. COMPARISON: CT abdomen and pelvis 09/09/2020 FINDINGS: GI tract: No dilated small or large bowel, bowel wall thickening, ormesenteric inflammation. No mucosal hyperenhancement. Liver: Normal signal, no suspicious lesions. Few scattered sub-5 mmnonenhancing cysts. Bile ducts: Nondilated. Gallbladder: Multiple gallstones. Normal caliber wall. No pericholecysticfluid. Pancreas: Normal. Spleen: Normal. Adrenals: Normal. Kidneys: Bilateral simple renal cysts. No suspicious lesions. Nodilatation of the collecting system. Lymph nodes: No lymphadenopathy. Reproductive structures: Normal. Osseous structures: No suspicious marrow signal abnormality. Abdominal wall: Fat-containing umbilical hernia. IMPRESSION No evidence of inflammatory bowel disease. I have personally reviewed the image(s) and the resident's interpretationand agree with the findings, Som Waldrop MD at 11/09/2022 8:25 AM Thank you for letting us participate in the care of this patient. If youare a health care provider and have any questions regarding this report,please contact the number below. For patients who have questions please contactthe health career development specialist that requested your imaging first. Paul Holman MD [facility] MRI ORDERABLES documented in this encounter Visit Diagnoses Diagnosis Irritable bowel syndrome with both constipation and diarrhea documented in this encounter Administered Medications Inactive Administered Medications - up to 3 most recent administrations Medication Order MAR Action Action Date Dose Rate Site gadoterate meglumine (Dotarem) (0.5 mMol/mL) injection solution 0-100 mL 0-100 mL, Intravenous, ONCE PRN, 1 dose, Starting on Caren 11/08/22 at 1536, Until Caren 11/08/22 at 1653, Per Protocol, Radiology Contrast, Routine Given 11/08/2022 4:53 PM EDT 20 mLs glucagon (Glucagen) (1 mg/mL) injection solution 0.5 mg 0.5 mg, Intramuscular, ONCE, 1 dose, On Caren 11/08/22 at 1500, Radiology Protocol Medication, Routine Given 11/08/2022 4:22 PM EDT 0.5 mg documented in this encounter Care Teams Senior Mortgage Underwriter Relationship Specialty Start Date End Date Romeo Corbin MD [address] [place] [address] PCP - General 09/23/14 05/26/23 documented as of this encounter
--- OUTSIDE RECORDS SUMMARY | 2024-03-25 14:00 | XMS_ITS | Encounter Summary ---
Author Organization [facility] Address [facility] [place] [id number] Care Team Providers Care Jockey Room Custodian Name Role Phone Romeo Corbin MD Primary Care Provider Reason for Visit * Diagnostic Test (Routine) - Closed Specialty Diagnoses / Procedures Referred By Contac t Referred To Contact Gastroenterology Diagnoses Irritable bowel syndrome with both constipation and diarrhea ARM for fecal incontinence Procedures High Definition Anal Manometry PRG ANORECTAL MANOMETRY PRG RECTAL SESATION TONE & COMPLIANCE TEST Paul Holman MD [facility] [place] [address] [facility] [address] [place] [address] Referral ID Status Reason Start Date Expiration Date V isits Requested Visits Authorized [id number] Closed Consult, Test & Treat 08/27/2022 08/27/2023 1 1 Encounter Details Date Type Department Care Team (Latest Contact Info) Description 11/08/2022 11:00 AM EDT Procedure [place] [address] Irritable bowel syndrome with both constipation and [...] as of this encounter Progress Notes * Noemi Osborn RN - 11/08/2022 11:00 AM EDT A description of the anal manometry procedure was provided to the patient. All questions were answered and the patient verbalized understanding. After performing a digital rectal exam, the HRAM probe was placed in the rectum without difficulty and the procedure was performed. After removal of the probe, an anorectal balloon expulsion catheterwas placed in the rectum for continuation of the study. Patient is able to expel balloon in 43 seconds while in sitting position. The patient tolerated the procedure well. * Paul Holman MD - 11/08/2022 11:00 AM EDT Re: Som Judge Reg No:[id number] : 1970 Date of Service: 11/08/2022 ANORECTAL MANOMETRY w/BALLOON EXPULSION Referring provider:Paul Holman Dear: Dr. Holman We had the pleasure of performing a high resolution anorectal manometry on your patient in the GI Motility Laboratory at [facility]. CLINICAL HISTORY AND INDICATION As you know, he is a 52 y.o. male with complaints of fecal incontinence RESULTS Resting sphincter pressure (NL Value: Males 70-100, Females 70-90) : 70 mmHg Max squeeze pressure (NL Value: Males 240-300, Females 160-200) : 272 mmHg Squeeze duration: excellent (sustaining at least 50% of the difference between maximum squeeze and resting pressures for at least 20 seconds). Rectoanal inhibitory reflex: present at 60 ccs balloon distention Response to coughing: normal (cough elicits a pressure greater than or equal to double the resting pressure). No dyssynergia evident on push maneuvers. Rectal Sensation: Threshold (NL Value: 30-70): 60mL Urgency (NL Value: 80-130): 120mL Maximum tolerated (NL Value: 130-200): 140mL Balloon expulsion test: 43 seconds in seated position IMPRESSION No overall evidence of dyssynergic defecation on anorectal manometry or balloon expulsion test. Resting anal sphincter pressure reflecting internal sphincter function was normal. Maximum squeeze pressures reflecting external sphincter function were normal. Rectal sensation was normal. Paul Holman MD, [facility] Section of Gastroenterology and [facility]atology [facility], Located [facility] [place] [address] V: [phone] F: [phone] CC/EC: Romeo Corbin MD [address] [place] [address] documented in this encounter Plan of Treatment Upcoming Encounters Date Type Department Care Team (Late st Contact Info) Description 05/05/2024 8:00 AM EST Office Visit Physical Therapy at [facility] [address] [facility] [place] [address] Kierra Moreno, [facility] [place] [address] 05/05/2024 9:00 AM EST Office Visit Functional Mormon Program at [facility] [place] [facility] [address] [facility] [place] [address] Mireya Nicole, OT 05/19/2024 8:00 AM EST Office Visit Physical Therapy at [facility] [place] [facility] [address] [facility] [place] [address] Kierra Moreno, [facility] PHYSICAL BENY & [place] [address] 06/02/2024 9:00 AM EST Office Visit Physical Therapy at [facility] [place] [facility] [address] [facility] [place] [address] Kierra Moreno, [facility] PHYSICAL BENY & [place] [address] documented as of this encounter Visit Diagnoses Diagnosis Irritable bowel syndrome with both constipation and diarrhea documented in this encounter Care Teams Jockey Room Custodian Relationship Specialty Start Date End Date Romeo Corbin MD [address] [place] [address] PCP - General 09/23/14 05/26/23 documented as of this encounter
--- OUTSIDE RECORDS SUMMARY | 2024-03-25 14:00 | XMS_ITS | Encounter Summary ---
Author Organization [facility] [place] [address] Care Team Providers Care Admissions Advisor Name Role Phone Sb Jones Primary Care Provider [phone] Encounter Details Date Type Department Care Team (Late st Contact Info) Description 09/03/2023 Orders Only [facility] [place] [address] Lacey Gleason, AUTO LEASING MANAGER [facility] [place] [address] Radiculopathy of lumbar region Social History Tobacco [...] [facility] [address] [place] [address] Kierra Moreno, PT [facility] PHYSICAL MEDICINE & [place] [address] 05/05/2024 9:00 AM EST Office Visit Functional Yazdanism Program at [facility] [address] [place] [address] Mireya Nicole, OT 05/19/2024 8:00 AM EST Office Visit Physical Therapy at [facility] [address] [place] [address] Kierra Moreno, PT [facility] PHYSICAL MEDICINE & [place] [address] 06/02/2024 9:00 AM EST Office Visit Physical Therapy at [facility] [address] [place] [address] Kierra Moreno, PT [facility] PHYSICAL MEDICINE & [place] [address] documented as of this encounter Visit Diagnoses Diagnosis Radiculopathy of lumbar region Thoracic or lumbosacral neuritis or radiculitis, unspecified documented in this encounter Care Teams Admissions Advisor Relationship Specialty Start Date End Date Sb Jones PA [address] [place] [address] PCP - General Internal Medicine 05/27/23 documented as of this encounter
--- OUTSIDE RECORDS SUMMARY | 2024-03-25 14:00 | XMS_ITS | Encounter Summary ---
Author Organization [facility] [place] [address] Care Team Providers Care Stock Roller Name Role Phone Sb Jones Primary Care Provider [phone] Reason for Visit * Auth/Cert (Routine) Specialty Diagnoses / Procedures Referred By Contac t Referred To Contact Diagnoses Radiculopathy of lumbar region lumbar radiculopathy Procedures PRO INJECTION DX/THER SBST INTRLMNR LMBR/SAC W/IMG GDN INJECTION, EPIDURAL, LUMBAR OR SACRAL (CAUDAL), WITH IMAGING GUIDANCE (WRVU 1.8) Edwin Khan MD [facility] [place] [address] [facility] Referral ID Status Reason Start Date Expiration Date Visits Re quested Visits Authorized [id number] 1 1 Encounter Details Date Type Department Care Team (Late st Contact Info) Description 10/21/2023 9:30 AM EDT - 10/21/2023 10:00 AM EDT [place] [address] Edwin Khan MD [facility] [place] [address] INJECTION, EPIDURAL, LUMBAR OR SACRAL (CAUDAL), WITH [...] Sig Dispensed Refills Start Date End Date dagakio-hbyybbvvsjnod-cg ffeine (EXCEDRIN MIGRAINE) 250-250-65 mg Tablet Take [...] on file) Attending Physician: Edwin Khan MD [facility] PREPROCEDURE HISTORY [...] will proceed. Parmjit Esteves DO Fellow Physician [facility] [place] [address] / documented in this encounter Miscellaneous Notes * Op Note - Edwin Khan MD - 10/21/2023 9:34 AM EDT Pain Management Operative Note Patient Name: Som Judge : [id number] MR#: [id number] Case Date: 10/21/2023 Surgeon: Surgeon(s) and Role: [...] epidural steroid injection by KAVITHA Alatorre DR [address] [place] [id number]. The patient complains of low back pain [...] Attending Physician [facility] [address] [address] / CC: KAVITHA Alatorre [facility] [address] [place] [address] [address] documented in this encounter Plan of Treatment Upcoming Encounters Date Type Department Care Team (Late st Contact Info) Description 05/05/2024 8:00 AM EST Office Visit Physical Therapy at [facility] [address] [place] [phone] Kierra Moreno, PT [facility] PHYSICAL MEDICINE & [place] [address] 05/05/2024 9:00 AM EST Office Visit Functional Anglican Program at [facility] [address] [place] [address] Mireya Nicole OT 05/19/2024 8:00 AM EST Office Visit Physical Therapy at [facility] [address] [place] [address] Kierra Moreno, PT [facility] PHYSICAL [place]INE & [place] [address] 06/02/2024 9:00 AM EST Office Visit Physical Therapy at [facility] [address] [place] [address] Kierra Moreno, PT [facility] PHYSICAL MED[place]INE & [place] [address] documented as of this encounter Procedures Procedure Name Priority Date/Time Associated Diagnosis Comments Injection Dx/Ther Sbst Intrlmnr Lmbr/Sac W/Img Gdn (21330) 10/21/2023 9:19 AM EDT Radiculopathy of lumbar [...] (Omnipaque) (240 mg/mL) solution PRN, Starting on Sat10/21/23 at 0904, Until Sat10/21/23 at 1150, Intra-Operative (Intra-Procedure), Routine Given 10/21/2023 9:04 AM EDT 2 mLs lidocaine (pf) (Xylocaine) (10 mg/mL) 1% injection PRN, Starting on Sat10/21/23 at 0904, Until Sat10/21/23 at 1150, Intra-Operative (Intra-Procedure), Routine Given 10/21/2023 9:04 AM EDT 2 mLs methylPREDNISolone acetate (DEPO-Medrol) (80 mg/mL) injection PRN, Starting on Sat10/21/23 at 0904, Until Sat10/21/23 at 1150, Intra-Operative (Intra-Procedure), Routine Given 10/21/2023 9:04 AM EDT 80 mg documented in this encounter Active [...] er: Parmjit Esteves, DO - Comment: lesi) documented in this encounter Care Teams Stock Roller Relationship Specialty Start Date End Date Sb Jones PA [address] [place] [address] PCP - General Internal Medicine 05/27/23 documented as of this encounter
--- OUTSIDE RECORDS SUMMARY | 2024-03-25 14:00 | XMS_ITS | Encounter Summary ---
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 Name Role Phone Romeo Corbin MD Primary Care Provider [phone] Encounter Details Date Type Department Care Team (Latest Contact Info) Description 01/14/2023 3:30 PM EDT TH Visit (TeleHealth) [place] [address] Paul Holman MD [facility] [place] [address] Irritable bowel syndrome with both constipation and diarrhea; Functional dyspepsia; Gastroesophageal reflux disease, unspecified whether esophagitis present Social History Tobacco Use Types Packs/Day Years [...] documented as of this encounter Patient Instructions * Patient Instructions* Paul Holman MD - 01/14/2023 3:30 PM EDT Functional Bowel Disorders: Information Handout for Patients and Primary Care Providers Paul Holman MD, FRCPC + Prasanth Lucas MD, LUIS Brett Zhong, BOAT BUILDER AND REPAIRER + Ruthie Echeverria APRN + Mili Grover APRN + KAVITHA Ramirez RN + CULLEN Diazica Salwen-Deremer, PhD [facility] What are functional bowel disorders? These are the most common type of gastrointestinal disorders in the [facility] The most common functional bowel disorder in the [place] is irritable bowel syndrome (IBS) Irritable bowel syndrome affects the lower GI tract and can cause bloating, abdominal pain, diarrhea, and constipation Functional dyspepsia (FD) affects the upper GI tract and can cause bloating, burping, heartburn, nausea, fullness and stomach discomfort In functional disorders the gut is structurally/anatomically normal but is not functioning properlydue to abnormalities in the enteric (gut) nervous system Two mechanisms cause symptoms - heightened sensitivity of the gut to normal sensations (sensory nerves) and abnormal gut motility (motor nerves) These disorders are caused by a combination of a genetic factors, changes to the gut microbiota (intestinal bacteria) and environmental triggers How common are these disorders and what is the impact? 15-20% of general [place] population has IBS or FD or both IBS is the 2nd most common cause for lost work days (after common cold) in [place] IBS is estimated to cost the [place] economy 30 billion dollars per year These disorders are typically chronic and can have a significant impact on quality of life How is the diagnosis made? The diagnosis of a functional disorder is NOT a ???diagnosis of exclusion?? (common misconception) Investigations may be necessary to look for other disorders (such as celiac disease) that may be contributing to symptoms. Sometimes investigations are required if the diagnosis is unclear Work-up may include history (description of symptoms), physical exam, bloodwork, stool studies, diagnostic imaging, motility tests and endoscopy What is the prognosis? Functional bowel disorders are unfortunately chronic disorders and often have a major impact on patient quality of life, function, and relationships Symptoms may gradually resolve in some patients (highest rate in patients with immediate onset of symptoms after infection); fpc symptoms are expected in most patients however Most patients experience a variable course with varying degrees of symptom severity. Intermittent exacerbations (i.e. ???flares?? ) are common and may be caused by stress, infections, antibiotic exposure, and lack of adherence to treatment plans. Often there is no clear precipitant for an exacerbation though. When should a patient be re-evaluated? Patients with stable symptoms do NOT need episodic re-evaluation Subtle changes in symptoms and symptom flares are common Patients should be re-evaluated if they have progression or dramatic changes in symptoms, severe abdominal pain, swallowing difficulties, unexplained weight loss, anemia (low blood counts), or bleeding If you have concerns be sure to talk to your PRP or GI provider How do I use this information? Set realistic goals! Remember it is unlikely that any one measure will completely eliminate all symptoms ???Start low and go slow?? with all measures to avoid potential side effects Stay on any measure continuously for at least 4-6 weeks prior to assessing whether or not it is helping (improvements are often slow to occur) After an adequate trial ask yourself if the benefit is worth continuing the treatment Most patients will need multiple treatment measures (each giving a partial benefit) - this is called the ???layering strategy?? Remember that finding the right combination for you takes time and patience - there is NO ???miracle cure?? for functional disorders Remember there are limited treatment options available. We want to be absolutely sure that a measure is not effective or intolerable before stopping it and considering other options We specifically recommend all patients to do ALL general lifestyle and dietary measures. Patients that do not follow these general measures generally do not have improvement. We also specifically suggest using a fiber supplement (such as Metamucil) and probiotics together - this approach benefits most patients OTC (xvwr-vkh-lslumte) medications can be used for ongoing bothersome symptoms as listed below Your doctor (PCP or [facility] Gastroenterology provider or Gastroenterology provider) may decide to use prescription medications if you have ongoing symptoms despite using lifestyle and dietary measures and OTC medications Your doctor will give you advice on treatments but it is your responsibility to work on these measures to improve your symptoms. Lack of following recommendations is a common cause for ongoing symptoms. If symptoms are controlled try easing back on measures - remember the main goal is to improve quality of life (not necessarily eliminate symptoms). Goals of Therapy Complete resolution of all symptoms is not a realistic goal for most patients. Although we hope for you to have decreased symptoms we believe the most important goal is to help you find strategies to cope with and understand your disorder. Ultimately, we hope that you are able to improve your quality of life and do the things that are important in your life! Non-Pharmacologic General Treatments Lifestyle measures Many lifestyle factors can worsen IBS symptoms However, IBS is not caused by these factors (common misconception) These lifestyle factors include the following: Inadequate sleep Weight gain Inadequate exercise Stress Depression/anxiety - this should be brought up to your Primary Care Provider (if left untreated it is unlikely the functional bowel disorder will improve) Dietary measures Trigger food avoidance - you should re-introduce foods once symptoms settle as overly restrictive diet can be unhealthy and even harmful Fatty foods, spicy foods, alcohol, and caffeine can worsen symptoms Consider a 2 week dairy-free trial for possible lactose-intolerance Your PCP or GI provider can refer you to a dietitian for formal instruction on specialized diets including the low FODMAP diet (but we don't recommend using this without dietitian involvement). Fiber Aim for a goal is 30 g fiber/day - some patients may require more or less Increase fiber by 5 g per week (remember ???start low and go slow?? ) Fiber can be from multiple dietary sources but supplementation may be helpful Fiber intake should include psyllium fiber; this is the type of fiber used in research studies for treatment of IBS Sources of psyllium include All-Bran psyllium buds, Metamucil, bulk psyllium ([employer] stores and bulk stores) Specifically we recommend starting Metamucil at a low dosage such as one teaspoon a day for one week then gradually increasing by one teaspoon per week until no further benefit with increasing dosageis achieved. Most patients take between 2 and 6 teaspoons per day. Fluid intake goal is 8-10 glasses/day (caffeine and alcohol count as minus one in calculation) Probiotics Promising area but convincing medical evidence is still lacking Oxez-dze-uvufgwy supplements are not typically evaluated by FDA - quality/safety unclear and many products actually do not contain any probiotics at all Live-culture yogurts, kombucha and other dietary sources are an option Align, TuZen, and Visbiome are the three probiotics that are supported by medical research to have been shown benefit for IBS (available in most pharmacies, supermarkets or online) Florastor has been shown to benefit some post-infectious patients Psychology/Coping Skills Coping with chronic bothersome symptoms from functional disorders can be very challenging. Additionally it is not uncommon for functional disorders to contribute to feelings of stress, anxiety, and depression, which can actually worsen functional disorders. This can be a vicious cycle! Smartphone apps can be helpful for coping with IBS symptoms, and lessening the impact of stressors on IBS Headspace (anxiety/stress/mindfulness) Calm (anxiety/stress/mindfulness) CBT-I lean coach (insomnia/sleep problems) Curable (chronic pain) There is evidence for Cognitive Behavioral Therapy (CBT) for IBS - you can try this at home using aworkbook (Controlling IBS the Drug-Free Way: A 10-Step Plan for Symptom Relief by Carlito Arriola, Ph.D.) or work with a GI psychologist A local therapist may also be helpful for managing the impact of IBS and decreasing the likelihood that stressors will cause flares psychologyday.com ABCT.org ContextualScience.org Gut-directed hypnotherapy for IBS is also supported by research - you may find a provider at [employer] OT Medications for Functional Gut Disorders Diarrhea Loperamide (Imodium) should be considered first for mild and intermittent symptoms - start with small doses and take several hours before needed (or even before bed) (it is generally considered safe for long-term use) Constipation Patients with mild constipation can use laxatives ???as needed?? (in other words, if you feel constipated or haven't had a regular bowel movement). However, patients with more severe constipation generally will need laxatives on a regular schedule (every day or every second day for example). This is called ???maintenance therapy?? . PEG 3350 (Miralax) is a stool softener that is safe for fpc usage (no risk of dependency) andthe dosage can be adjusted to achieve 1-2 soft bowel movements per day; you can take 17g twice daily if needed Milk of magnesia, magnesium supplements and lactulose are alternate stool softeners that are generally safe for regular use in most patients (you should ask your doctor though) Bisacodyl (Dulcolax) and senna (Senokot) are stimulant laxatives for occasional use only (they may lead to dependency with regular long-term use) Enemas and bowel preparations (e.g. Golytely) can be used to treat severe stool impaction ---- thisis called ???rescue therapy?? . Drink 2 litres in 4 hours in the evening then take another 2 litresover 4 hours the next morning. Alternately, you can mix 14 capfuls of Miralax with 64 oz (2 litres) of Gatorade. Drink half over 2hours in the evening then take the rest over 2 hours the next morning. After rescue therapy immediately begin aggressive ???maintenance therapy?? with the therapies above. Bloating/Pain Ensure constipation is completely treated - ongoing constipation is one of the most common causes for refractory pain and bloating in patients with a history of constipation Heating pad or hot-water bottle, exercise, , warm bath or shower, and warm beverages are all good treatments for painful bloating episodes Simethicone (Gas-X) can be helpful for occasional usage for painful bloating Peppermint oil may also be useful; a capsule form exists (IBgard) Tumeric may help with pain and bloating in some patients Acetominophen (Tylenol) is safest analgesic (pain reliever) on the GI tract NSAIDs (e.g. ibuprofen) can cause gut irritation/inflammation - it's best to use this type of pain reliever in low doses and frequency only While medical cannabis has been used to treat a variety of chronic pain disorders it has not been rigorously studied in functional disorders and may actually worsen symptoms in some patients. At thispoint we do NOT recommend using medical cannabis to treat functional disorders AVOID narcotics/opioids as they typically make symptoms much worse and there is a risk of addictionand/or dependence Heartburn/Nausea/Vomiting/Dyspepsia Weight loss, elevation of the head of the bed frame, cutting back on nicotine/alcohol/caffeine/fatty foods, and avoiding eating or drinking prior to bed may help with reflux symptoms OTC antacids can be used for mild and/or infrequent reflux symptoms Acid reducing medications such as proton-pump inhibitors (PPIs) and H2 blockers are effective at relieving reflux if persistent and bothersome symptoms despite dietary and lifestyle measures Kia and vitamin B6 may help with nausea L-carnitine, riboflavin, and coenzyme Q10 supplements have been reported to help some patients withchronic nausea and vomiting Capsaicin, turmeric, and FDgard (combination of peppermint and maximiliano) may help with after-meal bloating, fullness and discomfort If using cannabis (recreational or medical) consider stopping for at least a full month. While cannabis has been reported to help some patients with nausea, it may actually contribute to symptoms in some patients. Disclaimer This information is intended for educational purposes only It is not meant to replace direct patient-doctor care All medications should be used under the supervision of a Gastroenterology provider ([facility] or ) or Primary Care Provider Authors are not liable for misuse/misinterpretation of this information Patient Resources [place] [employer] https://www.gastro.org/practice-guidance/ly-oelfeeh-ykixbc/ topic/ejmbhogyx-nmink-hhdqwnqj-ibs Badgut.org https://badgut.org/information-centre/r-z-lcagpoosx-topics/ibs/ AboutIBS.org https://www.aboutibs.org/ Uptodate.com https://www.ActionTax.catodate.staila technologies/contents/lfgunmqyq-ktscn-hyibhsfm-kuyfrf-ded-sjdyte documented in this encounter Progress Notes * Paul Holman MD - 01/14/2023 3:30 PM EDT [facility] TELE[facility]IC[facility] Chief Complaint: Som Judge is a 52 y[address] patient of Dr. Lara bolden. provider found here for follow-up of chronic abdominal pain. Referred for second opinion followed by Jennifer Thorpe APRN in [place] Detailed history: He was last seen August 27, 2022 and my thoughts at that time were as follows: Assessment/Plan: Mr. Judge is a 52 y.o. patient with the following issues: 1. Chronic dyspepsia symptoms with early satiety, post-prandial fullness, bloating,and upper abdominal discomfort. Variable course over time with gradual worsening one year ago. Regular nausea - few times per week but independent of meals and no regular vomiting. Symptoms consistent with functionaldyspepsia - epigastric pain subtype (EPS). Possible element of delayed gastric emptying. Noted cannabis usage but just started. Ongoing issues with kidney stones and chronic back pain may be contributing to overall symptomatology. Possible role of medications - zoloft (25% reported nausea and worsening of symptoms may correlate with dosage escalation) 2. Chronically altered bowel movements -historically predominantly diarrhea consistent with IBS -diarrhea predominant (IBS-D). Variable course over time with gradual worsening last year. Currently 5-10 bowel movements per day. Constant sensation of fullness and incomplete emptying and he will frequently sit on toilet - most times he will be able to pass a small stool and feel better. Associated generalized lower abdominal discomfort and excessive flatus. I suspect rectal hypersensitivity is a significant contributing factor. Possible element of dyssynergic defecation (DD). Possible role of medications - zoloft (20% reported diarrhea worsening of symptoms may correlate with dosage escalation) and magnesium for migraines. 3. Chronic heartburn and regurgitation consistent with GERD. No symptoms on current lifestyle and dietary therapies. 4. Chronic intermittent outlet type bleeding. Predates last colonoscopy and hemorrhoids seen which is the presumed cause. 5. Personal history of colonic polyps -recommended repeat colonoscopy in 3 years which can be done locally We discussed that complete symptom relief may not be a fully achievable goal for this chronic condition, but that improvement in quality of life, healthy days at work and family functions, and also general symptom improvement may be more reasonable goals. We discussed that treatments should be tried individually and for periods of at least 4-8 weeks to truly assess symptom response. I did my bestto answer questions to the fullest ability. We discussed that recommended treatments should be tried individually for at least three months at a time to truly assess for a meaningful response, or as long as tolerated, before changing therapy. Recommendations: We discussed GI functional/motility disorders in depth today including pathophysiology, expected course, impact and treatment categories We also discussed realistic goals (with emphasis on improved quality of life) and patient responsibilities. Please see the patient handout for recommendations on general treatment measures including lifestyle, dietary, and non-prescription pharmacologic options. I will arrange a comprehensive evaluation of the structure and function of the patient's GI tract including the following investigations +/- referrals: Bloodwork - anti-TTG, TSH Stool studies - O+P, C.difficile, fecal calprotectin MRE Consider U/S and HIDA scan if refractory upper abdo pain Upper GI series Gastric emptying study Hydrogen breath test Anorectal manometry Follow-up with PCP for possible alternative to Zoloft Consider referral to GI psychology to work on specific psychologic measures for functional disorders Consider referral to dietitian I will arrange a follow-up appointment after the above investigations to review the results and consolidate the diagnosis. Please note that generally specific treatment recommendations will not be discussed at that time. An additional follow-up appointment with a motility STOCKBROKING DEALER will be scheduled afterthis appointment to discuss specific recommendations for management. Patients should continue to work on general measures provided in our handout while awaiting this appointment. Interval history: Blood work was normal Stool studies not performed Anorectal manometry performed November 08, 2022 IMPRESSION No overall evidence of dyssynergic defecation on anorectal manometry or balloon expulsion test. Resting anal sphincter pressure reflecting internal sphincter function was normal. Maximum squeeze pressures reflecting external sphincter function were normal. Rectal sensation was normal. Hydrogen breath test November 20, 2022 negative. Excessive production of methane noted MR enterography performed November 09, 2022 normal with no evidence of inflammatory bowel disease Gastric emptying scan performed September 13, 2022 normal with 9% retained radiolabeled meal at 3 hours UGIS 11/15/2022: FINDINGS: The esophagus is normal in course and caliber, and is well distended on double contrast views. The mucosal pattern is normal. Small amount of residual contrast within the esophagus was cleared with subsequent dry swallows. The gastroesophageal junction is normally positioned. Esophageal peristalsis is normal. Mild gastroesophageal reflux was elicited with patient movement. The stomach is normal in course with normal mucosal pattern and folds. The duodenal bulb is normal, as is the course of the duodenum. IMPRESSION Mild gastroesophageal reflux. Otherwise normal UGI study. Current Regimen: Dicyclomine BID Imodium 2 mg OD Probiotics Magnesium for migraines Past Therapies: Amitriptyline poor tolerance Nortriptyline poor tolerance Pantoprazole brief trial Omeprazole brief trial Low FODMAP diet Zofran Review of systems: 14-point review of systems reviewed and negative except as above. Medications: Outpatient Medications Prior to Visit Medication Sig Dispense Refill dicyclomine (Bentyl) 10 mg Capsule TAKE 2 CAPSULES BY MOUTH FOUR TIMES DAILY Acidophilus-Pectin 75 million cell -100 mg Capsule Take 1 capsule by mouth daily. loperamide (Imodium A-D) 2 mg Capsule TAKE 1 TABLET BY MOUTH EVERY 6 HOURS NEEDED FOR LOOSE STOOL sertraline (ZOLOFT) 100 mg Tablet Take 200 mg by mouth daily. levothyroxine (Synthroid) 50 mcg Tablet Take 50 mcg by mouth daily. Prasterone, DHEA, 50 mg capsule Take 100 mg by mouth. acetaminophen (Tylenol) 325 mg Tablet Take 650 mg by mouth as needed. albuteroL 90 mcg/actuation HFA Aerosol Inhaler Inhale into the lungs every 6 hours as needed. cholecalciferol, Vitamin D3, 25 mcg (1,000 unit) Capsule Take 1 capsule by mouth daily. Takes 2 capsules in Winter meclizine (Antivert) 25 mg Tablet Take 1 tablet by mouth as needed. ondansetron (Zofran) 8 mg Tablet Take 1 tablet by mouth as needed. SUMAtriptan (Imitrex) 50 mg Tablet Take 1 tablet by mouth as needed. tamsulosin (Flomax) 0.4 mg Capsule Take 1 capsule by mouth daily. lactobacillus combination no.8 3 billion cell Capsule Take by mouth daily. MAGNESIUM ORAL Take 1 capsule by mouth daily. POTASSIUM CITRATE-CITRIC ACID ORAL Take by mouth daily. VITAMIN B COMPLEX ORAL Take 1 tablet by mouth daily. No facility-administered medications prior to visit. Allergies: is allergic to erythromycin base and cigarette smoke. Past Medical History: has a past medical history of Chronic back pain, Hypothyroidism, Kidney stones, and Migraines. Past Surgical History: has a past surgical history that includes shoulder surgery; knee surgery; and Injection Dx/Ther Sbst Intrlmnr Lmbr/Sac W/Img Gdn ([id number]) (N/A, 10/15/2022). Family History: family history is not on file. denies family history of colon cancer, IBD, or celiac disease in mother father or other family members Social History: reports that he quit smoking about 15 years ago. His smoking use included cigarettes. He has never used smokeless tobacco. He reports that he does not currently use alcohol. He reports current drug use. Drug: Marijuana. No Physical Examination performed during this telemedicine visit Questionnaire: 08/27/2022 12:49 PM Q-[facility] Healthy Day Score 30 Work Absenteeism 0.17 Work Presenteeism 0.65 Laboratory studies, imaging, and procedures (in summary of my review of prior records): See above Assessment/Plan: Mr. Judge is a 52 y.o. patient with the following issues: 1. Chronic dyspepsia symptoms with early satiety, post-prandial fullness, bloating,and upper abdominal discomfort. Variable course over time with gradual worsening one year ago. Regular nausea - few times per week but independent of meals and no regular vomiting. Symptoms consistent with functionaldyspepsia - epigastric pain subtype (EPS). Possible element of delayed gastric emptying. Noted cannabis usage but just started. Ongoing issues with kidney stones and chronic back pain may be contributing to overall symptomatology. Possible role of medications - zoloft (25% reported nausea and worsening of symptoms may correlate with dosage escalation) 2. Chronically altered bowel movements -historically predominantly diarrhea consistent with IBS -diarrhea predominant (IBS-D). Variable course over time with gradual worsening last year. Currently 5-10 bowel movements per day. Constant sensation of fullness and incomplete emptying and he will frequently sit on toilet - most times he will be able to pass a small stool and feel better. Associated generalized lower abdominal discomfort and excessive flatus. I suspect rectal hypersensitivity is a significant contributing factor. Possible element of dyssynergic defecation (DD). Possible role of medications - zoloft (20% reported diarrhea worsening of symptoms may correlate with dosage escalation) and magnesium for migraines. 3. Chronic heartburn and regurgitation consistent with GERD. No symptoms on current lifestyle and dietary therapies. 4. Chronic intermittent outlet type bleeding. Predates last colonoscopy and hemorrhoids seen which is the presumed cause. 5. Personal history of colonic polyps -recommended repeat colonoscopy in 3 years which can be done locally We discussed that complete symptom relief may not be a fully achievable goal for this chronic condition, but that improvement in quality of life, healthy days at work and family functions, and also general symptom improvement may be more reasonable goals. We discussed that treatments should be tried individually and for periods of at least 4-8 weeks to truly assess symptom response. I did my bestto answer questions to the fullest ability. We discussed that recommended treatments should be tried individually for at least three months at a time to truly assess for a meaningful response, or as long as tolerated, before changing therapy. Recommendations: We further discussed GI functional/motility disorders in depth today including pathophysiology, expected course, impact and treatment categories We also discussed realistic goals (with emphasis on improved quality of life) and patient responsibilities. Please see the patient handout for recommendations on general treatment measures including lifestyle, dietary, and non-prescription pharmacologic options. Stool studies - O+P, C.difficile, fecal calprotectin - these can be done locally - recommend repeatcolonoscopy if the calprotectin is abnormal (can contact me to arrange) Consider U/S and HIDA scan if refractory upper abdo pain but low likelihood of biliary tract pathology contributing to symptoms Follow-up with PCP for possible alternative to Zoloft Consider mirtazapine if refractory nausea versus Buspar vs retrial with nortriptyline if refractorydyspepsia (the latter can help with lower symptoms as well) - will leave to PCP to prescribe and titrate and follow-up mental health carefully Consider referral to GI psychology to work on specific psychologic measures for functional disorders Consider referral to GI dietitian Surveillance colonoscopies locally We discussed that complete symptom relief may not be a fully achievable goal for this chronic condition, but that improvement in quality of life, healthy days at work and family functions, and also general symptom improvement may be more reasonable goals. We discussed that treatments should be tried individually and for periods of at least 4-8 weeks to truly assess symptom response. I did my bestto answer questions to the fullest ability. We discussed that recommended treatments should be tried individually for at least three months at a time to truly assess for a meaningful response, or as long as tolerated, before changing therapy. We have not scheduled further follow-up at our center at this time, as the GI issues have stabilized and can be managed locally following our recommendations. We will refer the patient back to Dr. Corbin for continued local care management, based on the care plan provided above. If the problem returns or worsens in the future despite following all of these recommendations, please submit a new consu lt to our center for re-evaluation. The patient was located in [place] at the time of their visit. Paul Holman MD [facility] [place] [address] documented in this encounter Plan of Treatment Upcoming Encounters Date Type Department Care Team (Late st Contact Info) Description 05/05/2024 8:00 AM EST Office Visit Physical Therapy at [facility] [address] [place] [address] Kierra Moreno, PT [facility] PHYSICAL MEDICINE & REHABILITAT [place] [address] 05/05/2024 9:00 AM EST Office Visit Functional Judaism Program at [facility] [address] [place] [address] Mireya Nicole, OT 05/19/2024 8:00 AM EST Office Visit Physical Therapy at [facility] [address] [place] [address] Kierra Moreno, PT [facility] PHYSICAL MEDICINE & [place] [address] 06/02/2024 9:00 AM EST Office Visit Physical Therapy at [facility] [address] [place] [address] Kierra Moreno, PT [facility] PHYSICAL MEDICINE [place] [address] documented as of this encounter Visit Diagnoses Diagnosis Irritable bowel syndrome with both constipation and diarrhea Functional dyspepsia Dyspepsia and other specified disorders of function of stomach Gastroesophageal reflux disease, unspecified whether esophagitis present documented in this encounter Care Teams Early Childhood Teacher Assistant Relationship Specialty Start Date End Date Romeo Corbin MD [address] [place] [address] PCP - General 09/23/14 05/26/23 documented as of this encounter
--- OUTSIDE RECORDS SUMMARY | 2024-03-25 14:00 | XMS_ITS | Encounter Summary ---
Author Organization [facility] Address [facility] [place] [address] Care Team Providers Care Receivable Executive Name Role Phone Romeo Corbin MD Primary Care Provider [phone] Encounter Details Date Type Department Care Team (Latest Contact Info) Description 11/15/2022 10:23 AM EDT - 11/15/2022 11:59 PM EDT Hospital Encounter XRay at [address] [place] [address] Paul Holman MD [facility] [address] Functional dyspepsia Discharge Disposition: Home Social History Tobacco Use [...] AM EST Office Visit Physical Therapy at [facility] [address] [place] [address] Kierra Moreno, PT [facility] PHYSICAL MEDICINE & [place] [address] 05/05/2024 9:00 AM EST Office Visit Functional Restorationism Program at [facility] [address] [place] [address] Mireya Nicole, OT 05/19/2024 8:00 AM EST Office Visit Physical Therapy at [facility] [address] [place] [address] Kierra Moreno, PT [facility] PHYSICAL MEDICINE [place] [address] 06/02/2024 9:00 AM EST Office Visit Physical Therapy at [facility] [address] [place] [address] Kierra Moreno, PT [facility]ICAL [facility] [place] [address] documented as of this encounter Procedures Procedure Name Priority Date/Time Associated Diagnosis Comments XR FLUORO UPPER GI DOUBLE CONTRAST WWO DELAYED FILMS W KUB Routine 11/15/2022 11:28 AM EDT Functional dyspepsia documented in this encounter Results * XR Fluoro Upper GI Double Contrast wwo Delayed Films w KUB (11/15/2022 11:28 AM EDT) Anatomical Region Laterality Modality N/A Radio Fluoroscop y Impressions 11/15/2022 3:16 PM EDT Mild gastroesophageal reflux. Otherwise normal UGI study. I have personally reviewed the image(s) and the resident's interpretation and agree with the findings, Gina Diaz MD at 11/15/2022 3:16 PM Thank you for letting us participate in the care of this patient. ??If you are a health care provider and have any questions regarding this report, please contact the number below. ??For patients who have questions please contact the health career development coordinator/teacher that requested your imaging first. ? Narrative 11/15/2022 3:16 PM EDT EXAMINATION: XR FLUORO UPPER GI DOUBLE CONTRAST WWO DELAYED FILMS W KUB CLINICAL HISTORY: dyspepsia TECHNIQUE: Double contrast UGI was performed. Fluoroscopic spot films were obtained. Fluoro time: 1.73 minutes COMPARISON: MRI and throughout the 11/06/2022, [place] gastric emptying study 09/13/2022 Sheather images: Nonobstructive small bowel gas pattern. Moderate stool burden seen throughout the colon. The lungs are clear. FINDINGS: The esophagus is normal in course and caliber, and is well distended on double contrast views. ??The mucosal pattern is normal. Small amount of residual contrast within the esophagus was cleared with subsequent dry swallows. The gastroesophageal junction is normally positioned. Esophageal peristalsis is normal. Mild gastroesophageal reflux was elicited with patient movement. The stomach is normal in course with normal mucosal pattern and folds. The duodenal bulb is normal, as is the course of the duodenum. Procedure Note Gina Diaz MD - 11/15/2022 EXAMINATION: XR FLUORO UPPER GI DOUBLE CONTRAST WWO DELAYED FILMS W KUB CLINICAL HISTORY: dyspepsia TECHNIQUE: Double contrast UGI was performed. Fluoroscopic spot films wereobtained. Fluoro time: 1.73 minutes COMPARISON: MRI and throughout the 11/06/2022, [place] gastric emptying study 09/13/2022 Sheather images: Nonobstructive small bowel gas pattern. Moderate stool burden seenthroughout the colon. The lungs are clear. FINDINGS: The esophagus is normal in course and caliber, and is well distended ondouble contrast views. The mucosal pattern is normal. [...] Mild gastroesophageal reflux. Otherwise normal UGI study. I have personally reviewed the image(s) and the resident's interpretationand agree with the findings, Gina Diaz MD at 11/15/2022 3:16 PM Thank you for letting us participate in the care of this patient. If youare a health care provider and have any questions regarding this report,please contact the number below. For patients who have questions please contactthe health career development coordinator/teacher that requested your imaging first. Paul Holman MD IMG FLUORO ORDERABLE S documented in this encounter Visit Diagnoses Diagnosis Functional dyspepsia Dyspepsia and other specified disorders of function of stomach documented in this encounter Administered Medications Inactive Administered Medications - up to 3 most recent administrations Medication Order MAR Action Action Date Dose Rate Site barium sulfate (E-Z Disk) tablet 0-700 mg 0-700 mg, Oral, ONCE PRN, 1 dose, Starting on Caren 11/15/22 at 1124, Until Caren 11/15/22 at 1120, Per Protocol, Radiology Contrast, Routine Given 11/15/2022 11:20 AM EDT 700 mg barium sulfate (E-Z-HD) 98% oral liquid 0-120 mL 0-120 mL, Oral, ONCE PRN, 1 dose, Starting on Caren 11/15/22 at 1124, Until Caren 11/15/22 at 1115, Per Protocol, Radiology Contrast, Routine Given 11/15/2022 11:15 AM EDT 90 mLs barium sulfate (Ezpaque) 60% (w/v) oral liquid 0-710 mL 0-710 mL, Oral, ONCE PRN, 1 dose, Starting on Caren 11/15/22 at 1124, Until Caren 11/15/22 at 1120, Per Protocol, Radiology Contrast, Routine Given 11/15/2022 11:20 AM EDT 100 mLs documented in this encounter Care Teams Receivable Executive Relationship Specialty Start Date End Date Romeo Corbin MD [address] [place] [address] PCP - General 09/23/14 05/26/23 documented as of this encounter
--- OUTSIDE RECORDS SUMMARY | 2024-03-25 14:00 | XMS_ITS | Encounter Summary ---
Author Organization [facility] Address [facility] [place] [address] Care Team Providers Care Transportation Planner Name Role Phone Sb Jones Primary Care Provider [phone] Encounter Details Date Type Department Care Team (Late st Contact Info) Description 09/02/2023 Telephone [facility] [place] [address] Tali Moyer Social History Tobacco Use Types Packs/Day Years [...] encounter Miscellaneous Notes * Telephone Encounter - Tali Moyer - 09/02/2023 3:01 PM EDT Patient is looking to schedule an injection which him and Lacey talked about in Jun. I transferred patient to Pain nurse Fartun to complete this request. documented in this encounter Plan of Treatment Upcoming Encounters Date Type Department Care Team (Late st Contact Info) Description 05/05/2024 8:00 AM EST Office Visit Physical Therapy at [facility] [address] [place] [address] Kierra Moreno, PT [facility] PHYSICAL MEDICINE & [place] [address] 05/05/2024 9:00 AM EST Office Visit Functional Orthodox Program at [facility] [address] [place] [address] Mireya Nicole, OT 05/19/2024 8:00 AM EST Office Visit Physical Therapy at [facility] [address] [place] [address] Kierra Moreno, PT [facility] PHYSICAL MEDICINE [place] [address] 06/02/2024 9:00 AM EST Office Visit Physical Therapy at [facility] [address] [place] [address] Kierra Moreno, PT [facility] PHYSICAL MEDICINE & [place] [address] documented as of this encounter Visit Diagnoses Not on filedocumented in this encounter Care Teams Transportation Planner Relationship Specialty Start Date End Date Sb Jones PA N[address] [facility] [place] [address] PCP - General Internal Medicine 05/27/23 documented as of this encounter
--- OUTSIDE RECORDS SUMMARY | 2024-03-25 14:00 | XMS_ITS | Encounter Summary ---
Author Organization [facility] [place] [address] Care Team Providers Care Mechanical Drafter Name Role Phone Sb Jones Primary Care Provider [phone] Encounter Details Date Type Department Care Team (Late st Contact Info) Description 10/25/2023 Telephone [place] [address] Parmjit Esteves DO [facility] [place] [address] Social History Tobacco Use Types Packs/Day Years [...] encounter Miscellaneous Notes * Telephone Encounter - Parmjit Esteves DO - 10/25/2023 10:03 AM EDT Several attempts were made on 10/24/23 to speak with the patient. Unable to connect and evaluate his headache. I tried again on 10/24 to discuss state of postural headache. Unfortunately, no response. Will proceed with conservative measures and observation in the interim. documented in this encounter Plan of Treatment Upcoming Encounters Date Type Department Care Team (Late st Contact Info) Description 05/05/2024 8:00 AM EST Office Visit Physical Therapy at [facility] [address] [place] [address] Kierra Moreno, PT [facility] PHYSICAL MEDICINE [place] [address] 05/05/2024 9:00 AM EST Office Visit Functional Scientology Program at [facility] [address] [place] [address] Mireya Nicole, OT 05/19/2024 8:00 AM EST Office Visit Physical Therapy at [facility] [address] [place] [address] Kierra Moreno, PT [facility] [place] [address] 06/02/2024 9:00 AM EST Office Visit Physical Therapy at [facility] [address] [place] [address] Kierra Moreno, PT [facility] PHYSICAL MEDICINE [place] [address] documented as of this encounter Visit Diagnoses Not on filedocumented in this encounter Care Teams Mechanical Drafter Relationship Specialty Start Date End Date Sb Jones PA [address] [place] [address] PCP - General Internal Medicine 05/27/23 documented as of this encounter
--- OUTSIDE RECORDS SUMMARY | 2024-03-25 14:00 | XMS_ITS | Encounter Summary ---
Author Organization [facility] Address [facility] [place] [address] Care Team Providers Care Network Intern Name Role Phone Sb Jones Primary Care Provider [phone] Reason for Visit * Reason Comments Back Pain * Consultation (Routine) - Authorized Specialty Diagnoses / Procedures Referred By Contac t Referred To Contact Orthopaedics Diagnoses Radiculopathy of lumbar region Lacey Gleason APRN [facility] [place] [address] [facility] [address] [place] [address] Referral ID Status Reason Start Date Expiration Date Visits Requested Visits Authorized [id number] Authorized Consult & Test 09/24/2023 09/23/2024 2 2 Encounter Details Date Type Department Care Team (Latest Contact Info) Description 11/12/2023 9:00 AM EDT Office Visit [place] [address] Mireya Nicole, OT Radiculopathy of lumbar region [...] Sign Reading Time Taken Comments Blood Pressure 146/90 11/12/2023 8:48 AM EDT Pulse - - Temperature - - Respiratory Rate - - Oxygen Saturation - - Inhaled Oxygen Concentration - - Weight - - Height - - Body Mass Index - - documented in this encounter Miscellaneous Notes * Initial Evaluation - Mireya Nicole, OT - 11/12/2023 9:00 AM EDT GOALS AND PHYSICAL CAPACITIES ASSESSMENT Mr. Judge [facility] to assist with determining candidacy foradmission into the Functional Hoahaoism Program. Mr. 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 Personal Function 3 Month Goals Vocational: None identified: flexible schedule, able to take stretch breaks, has a sit stand desk Recreational: Be able to hike, be able to kayak on the [place] ; be able to travel ([place]) including [...] transferring clothes to dryer; unload and load child development associate teacher; Be able to chop, lift and carry wood; PHYSICAL EVALUATION Resting Vital Signs: BP 146/90 Gait: normal. AROM (degrees): Lumbar Spine Forward bend (0-90) 100 Backward bend (0-30) 30 SLR Right (0-90) 80 SLR Left (0-90) 70 Cervical Spine Flexion (0-60) 50 Extension (0-50) 55 Rot. Right (0-80) 80 Rot. Left (0-80) 80 Lat. Flex Right (0-45) 40 Lat. Flex Left (0-45) 50 Endurance Testing: Modified Ramp Treadmill Test Minutes Completed 5:00 % Grade 11 Speed (mph) 2.3 MET/HR 6 / 145 Reason for Stop Point: short of breath Functional Strength Testing: PILE Testing lbs/HR Floor To Waist 10 / 140 Waist to Shoulder 10 / 135 Reason for Stop Point: low back spasm During physical testing, participation level cooperative and consistent. Demand Levels of Functional Recovery Goals Current Capacity Limit / Physical Demand Level (PDL) Vocational: None Identified Recreational: Medium-Heavy Daily Living: Medium Sedentary The PDL listed above is based on today's physical performance screening tests. More comprehensive physical testing integrated with clinical findings would be required to derive an accurate work capacity. ASSESSMENT OF FUNCTIONAL TESTING: Based on today???s physical capacity findings Som Judge is a candidate for a multidisciplinary intensive physical rehabilitation program with behavioral support. There are physical limitationsin gait, range of motion, walking endurance, functional strength, and overall physical capacities that interfere with basic functional tasks and hinder quality of life. I believe that this can improve with functional rehabilitation. GREEN LIGHT PLAN: Pending medical clearance, Som has been recommended for the upcoming Functional Hoahaoism Program (FRP) that includes 3-4 weeks of intensive PT/OT followed by a minimum of 6 months commitment to self care exercise for improving and maintaining physical capacities. He will participate in [employer] prior to enrollment in the Functional Hoahaoism Program. Empowered Relief??? is an evidence-based, single-session pain class that rapidly equips patients with pain management skills targeting pain intensity, pain interference, pain catastrophizing, pain bothersomeness, anxiety, depression, sleep disturbance, and fatigue. He has concerns about potential logistical barriers that may affect his ability to participate in the intensive rehab program, so should speak with [facility] social work staff prior to leaving today. He is interested in the January 06-Jan 30 program. Jennifer Vang APRN was updated status. Total time for testin minutes documented in this encounter Plan of Treatment Upcoming Encounters Date Type Department Care Team (Late st Contact Info) Description 05/05/2024 8:00 AM EST Office Visit Physical Therapy at [facility] [address] [place] [address] Kierra Moreno, PT [facility] PHYSICAL MEDICINE [place] [address] 05/05/2024 9:00 AM EST Office Visit Functional Hoahaoism Program at [facility] [address] [place] [address] Mireya Nicole, OT 05/19/2024 8:00 AM EST Office Visit Physical Therapy at [facility] [address] [place] [address] Kierra Moreno, PT [facility] PHYSICAL MEDICINE & [place] [address] 06/02/2024 9:00 AM EST Office Visit Physical Therapy at [facility] [address] [place] [address] Kierra Moreno, PT [facility] PHYSICAL MEDICINE & [place] [address] Scheduled Referrals Name Type Priority Associated Diagnoses Order Schedule Referral to Functional Hoahaoism Program Outpatient Referral Routine Radiculopathy of lumbar region Ordered: 09/24/2023 documented as of this encounter Visit Diagnoses Diagnosis Radiculopathy of lumbar region Thoracic or lumbosacral neuritis or radiculitis, unspecified documented in this encounter Care Teams Network Intern Relationship Specialty Start Date End Date Sb Jones PA [address] [place] [address] PCP - General Internal Medicine 05/27/23 documented as of this encounter
--- OUTSIDE RECORDS SUMMARY | 2024-03-25 14:00 | XMS_ITS | Encounter Summary ---
Author Organization [facility] [place] [address] Care Team Providers Care Inside Sales Professional Name Role Phone Romeo Corbin MD Primary Care Provider [phone] Reason for Referral * Diagnostic Test (Routine) - Closed Specialty Diagnoses / Procedures Referred By Contac t Referred To Contact Radiology Diagnoses Radiculopathy of lumbar region Procedures MRI Lumbar Spine wo Contrast (Generic) Lacey Gleason APRN [facility] [place] [address] [place] [address] Referral ID Status Reason Start Date Expiration Date V isits Requested Visits Authorized [id number] Closed Specialty Service Requested 04/12/2023 10/11/2024 1 1 Reason for Visit * Diagnostic Test (Routine) - Closed Specialty Diagnoses / Procedures Referred By Contac t Referred To Contact Radiology Diagnoses Radiculopathy of lumbar region Procedures MRI Lumbar Spine wo Contrast (Generic) Lacey Gleason APRN [facility] [place] [address] [place] [address] Referral ID Status Reason Start Date Expiration Date V isits Requested Visits Authorized [id number] Closed Specialty Service Requested 04/12/2023 10/11/2024 1 1 Encounter Details Date Type Department Care Team (Latest Contact Info) Description 05/14/2023 1:33 PM EST - 05/14/2023 11:59 PM EST Hospital Encounter MRI at [facility] [place] [address] Lacey Gleason APRN [facility] [place] [address] Radiculopathy of lumbar region Discharge Disposition: Home [...] 50 mcg by mouth daily. 05/23/2022 01/07/2024 lactobacillus combination no.8 3 billion cell Capsule Take by mouth daily. 10/28/2020 05/28/2023 documented as of this encounter Plan of Treatment Upcoming Encounters Date Type Department Care Team (Late st Contact Info) Description 05/05/2024 8:00 AM EST Office Visit Physical Therapy at [facility] [address] [place] [address] Kierra Moreno, PT [facility] PHYSICAL MEDICINE [place] [address] 05/05/2024 9:00 AM EST Office Visit Functional Baptism Program at [facility] [address] [place] [address] Mireya Nicole, OT 05/19/2024 8:00 AM EST Office Visit Physical Therapy at [facility] [address] [facility] [place] [address] Kierra Moreno, PT [facility] PHYSICAL MEDICINE & [place] [address] 06/02/2024 9:00 AM EST Office Visit Physical Therapy at [facility] [address] [facility] [place] [address] Kierra Moreno, PT [facility] PHYSICAL MEDICINE & [place] [address] documented as of this encounter Procedures Procedure Name Priority Date/Time Associated Diagnosis Comments MRI LUMBAR SPINE WITHOUT CONTRAST Routine 05/14/2023 2:36 PM EST Radiculopathy of lumbar region documented in this encounter Results * MRI Lumbar Spine wo Contrast (Generic) (05/14/2023 2:36 PM EST) Anatomical Region Laterality Modality L-spine Magnetic Resonan ce Impressions 05/14/2023 3:00 PM EST Similar findings of moderate right worse than left subarticular recess stenosis at L4-5. Partial interval resorption of left foraminal disc herniation at L4-5. Unchanged left paracentral disc herniation at L5-S1. Comment: The following findings are so common in people without low back pain that while we report their presence, they must be interpreted with caution and in context of the clinical situation (Reference- Vicenta et al, Spine 2001). Findings: (Prevalence in patients without low back pain), disc degeneration (decreased T2 signal, height loss, bulge) (91%), disc T2-signal loss (83%), disc height loss (56%), disc bulge (64%), disc protrusion (32%), annular fissure (38%). Thank you for letting us participate in the care of this patient. ??If you are a health care provider and have any questions regarding this report, please contact the number below. ??For patients who have questions please contact the health home care and home health aides teacher that requested your imaging first. ? Electronically signed by: Marlee Titus [facility] ([phone]), at 05/14/2023 3:00 PM Narrative 05/14/2023 3:00 PM EST EXAMINATION: MRI LUMBAR SPINE WO CONTRAST (GENERIC) CLINICAL HISTORY: Lumbar radiculopathy, symptoms persist with conservative treatment TECHNIQUE: MRI of the lumbar spine was performed without contrast, routine radiculopathy protocol. COMPARISON: MRI lumbar spine 01/25/2021 FINDINGS: Mild levoconvex curvature centered at L4. Relative straightening of lumbar lordosis. The regional bone marrow is normal in signal. The vertebral body heights are maintained. The conus is normal in signal and caliber, terminating at T12-L1. Visualized retroperitoneal contents are unremarkable. Findings at individual levels: T12-L1: ??Minimal disc bulge. No canal or neural foraminal stenosis. L1-L2: ??No significant spinal canal or neural foraminal stenosis. L2-L3: ??Minimal annular disc bulge encroaches the caudal neural foramen and minimally indents ventral thecal sac. No significant canal or neural foraminal narrowing. L3-L4: ??Mild annular disc bulge indents the ventral thecal sac contributing to minimal subarticular recess narrowing. No significant neural foraminal stenosis. L4-L5: ??Disc bulge eccentric to the left with mild height loss. High signal intensity zone in the left foraminal region at site of previous disc herniation which is slightly resorbed. Moderate right worse than left subarticular recess stenosis and mild central canal narrowing. No right neural foraminal narrowing. L5-S1: ??Similar size of left paracentral disc protrusion which contacts and slightly displaces the left S1 nerve root. No neural foraminal or central canal stenosis. Procedure Note Marlee Titus MD - 05/14/2023 EXAMINATION: MRI LUMBAR SPINE WO CONTRAST (GENERIC) CLINICAL HISTORY: Lumbar radiculopathy, symptoms persist withconservative treatment TECHNIQUE: MRI of the lumbar spine was performed without contrast,routine radiculopathy protocol. COMPARISON: MRI lumbar spine 01/25/2021 FINDINGS: Mild levoconvex curvature centered at L4. Relative straighteningof lumbar lordosis. The regional bone marrow is normal in signal. Thevertebral body heights are maintained. The conus is normal in signal and caliber, terminating at T12-L1. Visualized retroperitoneal contents areunremarkable. Findings at individual levels: T12-L1: Minimal disc bulge. No canal or neural foraminal stenosis. L1-L2: No significant spinal canal or neural foraminal stenosis. L2-L3: Minimal annular disc bulge encroaches the caudal neural foramenand minimally indents ventral thecal sac. No significant canal or neuralforaminal narrowing. L3-L4: Mild annular disc bulge indents the ventral thecal saccontributing to minimal subarticular recess narrowing. No significant neural foraminalstenosis. L4-L5: Disc bulge eccentric to the left with mild height loss. Highsignal intensity zone in the left foraminal region at site of previous discherniation which is slightly resorbed. Moderate right worse than left subarticularrecess stenosis and mild central canal narrowing. No right neural foraminalnarrowing. L5-S1: Similar size of left paracentral disc protrusion which contactsand slightly displaces the left S1 nerve root. No neural foraminal or centralcanal stenosis. IMPRESSION Similar findings of moderate right worse than left subarticular recessstenosis at L4-5. Partial interval resorption of left foraminal disc herniation at L4-5. Unchanged left paracentral disc herniation at L5-S1. Comment: The following findings are so common in people without low backpain that while we report their presence, they must be interpreted with cautionand in context of the clinical situation (Reference- Tomásvik et al, [id number]). Findings: (Prevalence in patients without low back pain), discdegeneration (decreased T2 signal, height loss, bulge) (91%), disc T2-signal loss(83%), disc height loss (56%), disc bulge (64%), disc protrusion (32%), annularfissure (38%). Thank you for letting us participate in the care of this patient. If youare a health care provider and have any questions regarding this report,please contact the number below. For patients who have questions please contactthe health home care and home health aides teacher that requested your imaging first. Electronically signed by: Marlee Titus [facility]([phone]), at 05/14/2023 3:00 PM Lacey Gleason APRN IMG MRI ORDERABLES documented in this encounter Visit Diagnoses Diagnosis Radiculopathy of lumbar region Thoracic or lumbosacral neuritis or radiculitis, unspecified documented in this encounter Care Teams Inside Sales Professional Relationship Specialty Start Date End Date Romeo Corbin MD [address] [place] [address] PCP - General 09/23/14 05/26/23 documented as of this encounter
--- OUTSIDE RECORDS SUMMARY | 2024-03-25 14:00 | XMS_ITS | Encounter Summary ---
Author Organization [facility] [place] [address] Care Team Providers Care Food And Nutrition Services Assistant Name Role Phone Romeo Corbin MD Primary Care Provider [phone] Reason for Referral * Diagnostic Test (Routine) - Closed Specialty Diagnoses / Procedures Referred By Contac t Referred To Contact Radiology Diagnoses Radiculopathy of lumbar region Procedures MRI Lumbar Spine wo Contrast (Generic) Lacey Gleason APRN [facility] [address] [place] [address] Referral ID Status Reason Start Date Expiration Date V isits Requested Visits Authorized [id number] Closed Specialty Service Requested 04/12/2023 10/11/2024 1 1 Encounter Details Date Type Department Care Team (Latest Contact Info) Description 04/12/2023 11:30 AM EDT TH Visit (TeleHealth) [place] [address] Lacey Gleason APRN [facility] [place] [address] Radiculopathy of lumbar region Social History Tobacco [...] of this encounter Progress Notes * Lacey Gleason, RADHA - 04/12/2023 11:30 AM EDT [facility] [place] [address] Phone: PAIN MANAGEMENT TELEPHONE VISIT NOTE DATE OF VISIT 04/12/2023 Patient Som Judge 1970 REFERRING PROVIDER Kaushik Mccauley, RADHA [address] [place] [address] PRIMARY CARE PROVIDER Romeo Corbin MD [X] [...] and posterior thighs worse on the left. The pain has become much more intense with more frequent flares. A month ago, he missed nearly a week of work as a result of pain. In addition to the back and leg pain, he also has related IBS like symptoms. Pain score: 3/10 but goes to 7/10 Function: Does HEP Medications: Using THC/CBD tincture at hs. acetaminophen Patient denies any new neurological symptoms. Denies ataxia, uvaldo weakness. Denies recent hospitalizations since last visit. Denies fever, chills. Having more pain at night so has had more issues with sleep now that the pain has returned. Physical Exam: On limited telephonic examination appropriate [...] new imaging. Assessment Som Judge is a 52 y.o. male with lower back pain radiating into the groin/testicles and abdomen as well as into the buttocks and posterior thighs worse on the left. Plan Will order an updated MRI which will need to be completed prior to the injection. His last one is over 2 years old. Continue with HEP Patient will send [facility] paperwork for completion. Procedure: Lumbar Epidural Steroid Injection Laterality: Left [...] Yes, patient does not need to hold rarely takes ibuprofen Is patient taking Aspirin? No Is patient taking Antibiotics? No Is patient a diabetic?No Hemoglobin A1C? Has patient been on greater than 40mg of steroid 14 days or longer or has patient had a steroid injection within the last two weeks? No Does patient have allergies to contrast/local anesthetic/steroid? No Labs? N/A Imaging? Order Placed Does patient need IV? no Does patient need sedation? no Does patient need NPO guidelines? no Special Instructions - N/A Follow up post procedure - Telehealth Visit 3-4 weeks with Lacey Gleason, MSN, HEEL SPRAYER FIRST JUSTIFICATION OF MEDICAL NECESSITY Patient's pain has been present for > 3 months and is an average of >6/10 on 0- 10 scale and/or pain interferes with ADLs, sleep, mobility and function. Conservative management includes: - Medications: acetaminophen, CBD, ibuprofen - Physical Therapy: Patient cannot tolerate physical therapy at the current time due to the intensity of the pain. - Continues clinician directed home exercise program including exercises learned in PT. - Previous LESI done on 10/15/2022 reduced his pain by 90% ,lasting for over 4 months. During that time patient was able to participate in ADLs, had improved sleep, improved mobility. Patient reports functional improvement of at least 50% with the previous treatment. At this time there are no red [...] (21 or > Minutes) Lacey Gleason, MSN, [facility] SPR[facility] [address] [address] / documented in this encounter Plan of Treatment Upcoming Encounters Date Type Department Care Team (Late st Contact Info) Description 05/05/2024 8:00 AM EST Office Visit Physical Therapy at [facility] [address] [place] [address] Kierra Moreno, PT [facility] PHYSICAL MEDICINE & [place] [address] 05/05/2024 9:00 AM EST Office Visit Functional Yazidi Program at [facility] [address] [place] [address] Mireya Nicole, OT 05/19/2024 8:00 AM EST Office Visit Physical Therapy at [facility] [address] [place] [address] Kierra Moreno, PT [facility] PHYSICAL MEDICINE & [place] [address] 06/02/2024 9:00 AM EST Office Visit Physical Therapy at [facility] [address] [place] [address] Kierra Moreno, PT [facility] [place] [address] documented as of this encounter Results * MRI Lumbar Spine [...] in context of the clinical situation (Reference- Cyndiek et al, Spine 2001). Findings: (Prevalence in [...] questions please contact the health respiratory care technician that requested your imaging first. ? Narrative 05/14/2023 3:00 PM EST EXAMINATION: MRI [...] the clinical situation (Reference- Tomásvik et al, [id number]). Findings: (Prevalence in patients without low back [...] patients who have questions please contactthe health respiratory care technician that requested your imaging first. Lacey Gleason HEEL SPRAYER FIRST IMG MRI ORDERABLES documented in this encounter Visit Diagnoses Diagnosis Radiculopathy of lumbar region Thoracic or lumbosacral neuritis or radiculitis, unspecified Radiculopathy of lumbar region Thoracic or lumbosacral neuritis or radiculitis, unspecified documented in this encounter Care Teams Food And Nutrition Services Assistant Relationship Specialty Start Date End Date Romeo Corbin MD [address] [facility] [address] [place] [address] PCP - General 09/23/14 05/26/23 documented as of this encounter
--- OUTSIDE RECORDS SUMMARY | 2024-03-25 14:00 | XMS_ITS | Encounter Summary ---
Author Organization [facility] Address [facility] [place] [address] Care Team Providers Care Farm Loan Inspector Name Role Phone Romeo Corbin MD Primary Care Provider [phone] Encounter Details Date Type Department Care Team (Late st Contact Info) Description 04/16/2023 Telephone [place] [address] Riky Roblero Social History Tobacco Use Types Packs/Day Years [...] at [facility] [address] [place] [address] Kierra Moreno, PT [facility] PHYSICAL MEDICINE & [place] [address] 05/05/2024 9:00 AM EST Office Visit Functional Orthodoxy Program at [facility] [address] [place] [address] Mireya Nicole, OT 05/19/2024 8:00 AM EST Office Visit Physical Therapy at [facility] [address] [place] [address] Kierra Moreno, PT [facility] PHYSICAL MEDICINE [place] [address] 06/02/2024 9:00 AM EST Office Visit Physical Therapy at [address] [place] [address] Kierra Moreno, PT [facility] PHYSICAL MEDICINE [place] [address] documented as of this encounter Visit Diagnoses Not on filedocumented in this encounter Care Teams Farm Loan Inspector Relationship Specialty Start Date End Date Romeo Corbin MD [address] [place] [address] PCP - General 09/23/14 05/26/23 documented as of this encounter
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
--- OUTSIDE RECORDS SUMMARY | 2024-03-25 14:01 | XMS_ITS | Encounter Summary ---
Author Organization [facility] Address [facility] [place] [address] Care Team Providers Care Supervisor [employer] Name Role Phone Romeo Corbin MD Primary Care Provider [phone] Reason for Visit * Reason Onset Date Comments Results 02/17/2015 Encounter Details Date Type Department Care Team (Late st Contact Info) Description 02/17/2015 [place] [id number] Ritesh Schroeder MD [facility] [place] [address] Results Social History Tobacco Use Types Packs/Day Years Used Date Smoking Tobacco: Never Smokeless Tobacco: Never Sex and Gender Information Value Date Recorded Sex Assigned at Not on file Gender Identity Not on file Sexual Orientation Not on file documented as of this encounter Miscellaneous Notes * Telephone Encounter - Ritesh Schroeder MD - [...] [facility] [address] [place] [address] Kierra Moreno, PT [facility] PHYSICAL MEDICINE & [place] [address] 05/05/2024 9:00 AM EST Office Visit Functional Amish Program at [facility] [address] [place] [address] Mireya Nicole, OT 05/19/2024 8:00 AM EST Office Visit Physical Therapy at [facility] [address] [place] [address] Kierra Moreno, PT [facility] PHYSICAL MEDICINE & [place] [address] 06/02/2024 9:00 AM EST Office Visit Physical Therapy at [facility] [address] [place] [address] Kierra Moreno, PT [facility] PHYSICAL MEDICINE & [place] [address] documented as of this encounter Visit Diagnoses Not on filedocumented in this encounter Care Teams Supervisor [employer] Relationship Specialty Start Date End Date Romeo Corbin MD [address] [place] [address] PCP - General 09/23/14 05/26/23 documented as of this encounter
--- OUTSIDE RECORDS SUMMARY | 2024-03-25 14:01 | XMS_ITS | Encounter Summary ---
Author Organization [facility] Address [facility] [place] [address] Care Team Providers Care Network Services Project Manager Name Role Phone Romeo Corbin MD Primary Care Provider [phone] Reason for Visit * Diagnostic Test (Routine) - Closed Specialty Diagnoses / Procedures Referred By Conteric t Referred To Contact Radiology Diagnoses Functional dyspepsia Procedures NM Gastric Emptying Scan Paul Holman MD [facility] [place] [address] [place] [address] Referral ID Status Reason Start Date Expiration Date V isits Requested Visits Authorized [id number] Closed Specialty Service Requested 08/27/2022 02/28/2024 1 1 Encounter Details Date Type Department Care Team (Latest Contact Info) Description 09/13/2022 9:46 AM EDT - 09/13/2022 11:59 PM EDT Hospital Encounter [place] [address] Paul Holman MD [facility] [place] [address] Discharge Disposition: Home Social History Tobacco Use [...] ACID ORAL Take by mouth daily. 07/27/2020 10/27/2 023 documented as of this encounter Plan of Treatment Upcoming Encounters Date Type Department Care Team (Late st Contact Info) Description 05/05/2024 8:00 AM EST [facility] [address] [place] [address] Kierra Moreno, PT [facility] PHYSICAL MEDICINE [place] [address] 05/05/2024 9:00 AM EST Office Visit Functional [facility] [address] [place] [address] Mireya Nicole, OT 05/19/2024 8:00 AM EST Office Visit [facility] [address] [place] [address] Kierra Moreno, PT [facility] PHYSICAL [place] [address] 06/02/2024 9:00 AM EST Office Visit [facility] [address] [place] [address] Kierra Moreno, PT [facility] PHYSICAL MED[facility]INE [place] [address] documented as of this encounter Procedures Procedure Name Priority Date/Time Associated Diagnosis Comments NM GASTRIC EMPTYING SCAN Routine 09/13/2022 1:09 PM EDT Functional dyspepsia documented in this encounter Results * NM Gastric Emptying Scan (09/13/2022 1:09 PM EDT) Anatomical Region Laterality Modality Nuclear Medicine Impressions 09/13/2022 3:34 PM EDT Normal gastric emptying. I have personally reviewed the image(s) and the resident's interpretation and agree with the findings, Huey Thompson MD at 09/13/2022 3:34 PM Thank you for letting us participate in the care of this patient. ??If you are a health care provider and have any questions regarding this report, please contact the number below. ??For patients who have questions please contact the health home health care physician that requested your imaging first. ? Electronically signed by: Huey Thompson MD, [facility] ([phone]), at 09/13/2022 3:34 PM Narrative 09/13/2022 3:34 PM EDT EXAMINATION: NM GASTRIC EMPTYING SCAN CLINICAL HISTORY: nausea. if gastric emptying delayed at 4 hours, please also comment if combined gastric/small bowel transit time is more/less than 3 hours (7 hours total) TECHNIQUE: A standard meal was labeled with 0.5 mCi of Technetium-99m sulfur colloid and ingested. Images of the stomach were obtained in the anterior and posterior projections immediately thereafter and 1, 2 and 3 hours later. COMPARISON: None FINDINGS: Activity fills the stomach on the initial images obtained immediately after ingesting the meal. Small bowel is visible at one hour. There is minimal activity present in the stomach at 3 hours. Quantitative analysis: 2 hours: 16 percent remains in the stomach (normal less than 60%) 3 hours: 9 percent remains in the stomach (normal less than 10% at four hours) Procedure Note Huey Thompson MD - 09/13/2022 EXAMINATION: NM GASTRIC EMPTYING SCAN CLINICAL HISTORY: nausea. if gastric emptying delayed at 4 hours, pleasealso comment if combined gastric/small bowel transit time is more/less than 3hours (7 hours total) TECHNIQUE: A standard meal was labeled with 0.5 mCi of Technetium-99msulfur colloid and ingested. Images of the stomach were obtained in the anteriorand posterior projections immediately thereafter and 1, 2 and 3 hours later. COMPARISON: None FINDINGS: Activity fills the stomach on the initial images obtained immediatelyafter ingesting the meal. Small bowel is visible at one hour. There is minimal activity present in the stomach at 3 hours. Quantitative analysis: 2 hours: 16 percent remains in the stomach (normal less than 60%) 3 hours: 9 percent remains in the stomach (normal less than 10% at fourhours) IMPRESSION Normal gastric emptying. I have personally reviewed the image(s) and the resident's interpretationand agree with the findings, Huey Thompson MD at 09/13/2022 3:34 PM Thank you for letting us participate in the care of this patient. If youare a health care provider and have any questions regarding this report,please contact the number below. For patients who have questions please contactthe health home health care physician that requested your imaging first. Electronically signed by: Huey Thompson MD, [facility]([phone]), at 09/13/2022 3:34 PM Paul Holman MD IMG NM ORDERABLES documented in this encounter Visit Diagnoses Not on filedocumented in this encounter Care Teams Network Services Project Manager Relationship Specialty Start Date End Date Romeo Corbin MD [address] [place] [address] PCP - General 09/23/14 05/26/23 documented as of this encounter
--- OUTSIDE RECORDS SUMMARY | 2024-03-25 14:01 | XMS_ITS | Encounter Summary ---
Author Organization [facility] [place] [address] Care Team Providers Care Continuous Improvement Facilitator Name Role Phone Romeo Corbin MD Primary Care Provider [phone] Reason for Visit * Auth/Cert (Routine) Specialty Diagnoses / Procedures Referred By Contac t Referred To Contact Diagnoses lumbar radiculopathy Procedures PRO INJECTION DX/THER SBST INTRLMNR LMBR/SAC W/IMG GDN INJECTION, EPIDURAL, LUMBAR OR SACRAL (CAUDAL), WITH IMAGING GUIDANCE (WRVU 1.8) Edwin Khan MD [facility] [address] [facility] Referral ID Status Reason Start Date Expiration Date Visits Re quested Visits Authorized [id number] 1 1 Encounter Details Date Type Department Care Team (Latest Contact Info) Description 10/15/2022 2:37 PM EDT - 10/15/2022 4:08 PM EDT Hospital Encounter [place] [address] Edwin Khan MD [facility] [place] [address] Radiculopathy of lumbar region Discharge Disposition: Home [...] Sign Reading Time Taken Comments Blood Pressure 126/85 10/15/2022 4:00 PM EDT Pulse 85 10/15/2022 3:23 PM EDT Temperature - - Respiratory Rate - - Oxygen Saturation 97% 10/15/2022 4:00 PM EDT Inhaled Oxygen Concentration - - Weight 102.1 kg (225 lb) 10/15/2022 3:23 PM EDT Height 182.9 cm (6') 10/15/2022 3:23 PM EDT Body Mass Index 30.52 10/15/2022 3:23 PM EDT documented in this encounter Medications at [...] 07/27/2020 023 documented as of this encounter H&P Notes * Miah Hwang MD - 10/15/2022 8:43 AM EDT Patient Name: Som Judge Patient Age: 52 y.o. Birthdate: 1970 Admit date: 10/15/2022 Attending Physician: Edwin Khan MD PREPROCEDURE HISTORY AND PHYSICAL Date of Visit: October 15, 2022 Chief Complaint: Low back, leg pain HPI: Subjective Som Judge is a 52 y.o. male who presents today for a preoperative evaluation for L L5/S1 LESI. The history is obtained from the patient, and I have reviewed medical records provided by the referring physician and located in the electronic medical record to fill in gaps in the patient's recollection of events, treatments and outcomes. LOCATION: right lumbar area, left lumbar area or radiating to left leg(s). PAIN LEVEL AT REST 4/10 PAST MEDICAL HISTORY: Past Medical History: Diagnosis Date ??? Chronic back pain ??? Hypothyroidism ??? Kidney stones ??? Migraines PAST SURGICAL HISTORY: Past Surgical History: Procedure Laterality Date ??? KNEE SURGERY ??? SHOULDER SURGERY ALLERGIES: Erythromycin base and Cigarette smoke MEDICATIONS: Medications 10/15/22 1522 Medication Sig Taking? dicyclomine (Bentyl) 10 mg Capsule TAKE 2 [...] ORAL Take 1 tablet by mouth daily. FAMILY HISTORY: No family history on file. SOCIAL HISTORY: Social History Socioeconomic History ??? Marital status: Spouse name: Not on file ??? Number of children: Not on file ??? Years of education: Not on file ??? Highest education level: Not on file Occupational History ??? Not on file Tobacco Use ??? Smoking status: Former Types: Cigarettes Quit date: 2007 Years since quittin.3 ??? Smokeless tobacco: Never Vaping Use ??? Vaping Use: Never used Substance and Sexual Activity ??? Alcohol use: Not Currently ??? Drug use: Yes Types: Marijuana ??? Sexual activity: Not on file Other Topics Concern ??? Not on file Social History Narrative ??? Not on file Social Determinants of Health Financial Resource Strain: Not on file Food Insecurity: Not on file Transportation Needs: Not on file Physical Activity: Not on file Housing Stability: Not on file ROS: Patient denies recent fevers, chills, infections, wounds, hospitalizations, ED visits or antibiotics use PHYSICAL EXAM: BP 123/56 (Patient Position: Sitting) Pulse 85 Ht 182.9 cm (6') Wt 102.1 kg (225 lb) SpO2 98% BMI 30.52 kg/m?? CV: RRR Pulm: CTA B Skin: No concerning infection, erythema or warmth near the procedure site ASSESSMENT: Radiculopathy of lumbar region Som Judge is a 52 y.o. male who presents today for the above procedure. Risks and benefits were discussed with the patient and all questions answered. There are no contraindications to proceed. PLAN: Proceed with procedure as planned. Miah Hwang MD 10/15/2022 documented in this encounter Miscellaneous Notes * Op Note - Edwin Khan MD - 10/15/2022 3:30 PM EDT Pain Management Operative Note Patient Name: Som Judge : [id number] MR#: [id number] Case Date: 10/15/2022 Surgeon: Surgeon(s) and Role: * Edwin Khan MD - Primary Present on Admission: ??? Radiculopathy of lumbar region Postoperative diagnosis: Same Procedure(s) (LRB): INJECTION, EPIDURAL, LUMBAR OR SACRAL (CAUDAL), WITH IMAGING GUIDANCE (WRVU 1.8) (N/A) LUMBAR INTERLAMINAR EPIDURAL STERIOID INJECTION PROCEDURE NOTE - L5- S1 L bias Mr. Som Judge has been referred to the [facility] Management Center for a lumbar epidural steroid injection by Unknown None. The patient complains of low back pain [...] Judge. His voiced concerns were addressed. After informed consent was obtained, the patient consent form was signed. Standard time-out procedure was performed. Mr. Judge was placed in the prone [...] were as recorded in nursing records. PLAN: 1. Follow up with Ms. Parsonsy RADHA Gleason in 3-5 weeks. Post procedure instruction was given as documented in nursing documentation and having met discharge criteria, he was discharged from the Pain Management Center. The procedure was performed by Dr. Hwang under my supervision. I was the attending physician supervising the fellow in the above care and I was present with the fellow for the entire procedure. Edwin Khan MD [facility] [address] [address] / CC: Romeo Corbin MD [address] [place] [address] [address] documented in this encounter Plan of Treatment Upcoming Encounters Date Type Department Care Team (Late st Contact Info) Description 05/05/2024 8:00 AM EST Office Visit Physical Therapy at [facility] [address] [place] [address] Kierra Moreno, PT [facility] PHYSICAL MEDICINE & [place] [address] 05/05/2024 9:00 AM EST Office Visit Functional Evangelical Program at [facility] [address] [place] [address] Mireya Nicole, OT 05/19/2024 8:00 AM EST Office Visit Physical Therapy at [facility] [address] [place] [address] Kierra Moreno, PT [facility] PHYSICAL [place]INE & [place] [address] 06/02/2024 9:00 AM EST Office Visit Physical Therapy at [facility] [address] [place] [address] Kierra Moreno, PT [facility] PHYSICAL MED[place]INE & [place] [address] documented as of this encounter Procedures Procedure Name Priority Date/Time Associated Diagnosis Comments Injection Dx/Ther Sbst Intrlmnr Lmbr/Sac W/Img Gdn (43855) 10/15/2022 3:54 PM EDT Radiculopathy of lumbar region INJECTION, EPIDURAL, LUMBAR OR SACRAL (CAUDAL), WITH IMAGING GUIDANCE Routine 10/15/2022 3:17 PM EDT Radiculopathy of lumbar region documented in this encounter Visit Diagnoses Diagnosis Radiculopathy of lumbar region- Primary Thoracic or lumbosacral neuritis or radiculitis, unspecified documented in this encounter Active and Recently Administered Medications Times are shown in EDT. PRN Medication Order 10/13/2022 10/14/2022 10/15/2022 iohexoL (Omnipaque) (240 mg/mL) solution (CANCELED) ONCE PRN, Starting on Sat10/15/22 at 1603, Until Sat10/15/22 at 1808, Intra-Operative (Intra-Procedure), Routine 1602 (Given - Provid er: Miah Hwang MD - Comment: delfino) lidocaine (pf) (Xylocaine) (10 mg/mL) 1% injection (CANCELED) ONCE PRN, Starting on Sat10/15/22 at 1603, Until Sat10/15/22 at 1808, Intra-Operative (Intra-Procedure), Routine 160 (Given - Provid er: Miah Hwang MD - Comment: delfino) methylPREDNISolone acetate (DEPO-Medrol) (80 mg/mL) injection (CANCELED) ONCE PRN, Starting on Sat10/15/22 at 1604, Until Sat10/15/22 at 1808, Intra-Operative (Intra-Procedure), Routine 1604 (Given - Provid er: Miha Hwang MD - Comment: delfino) documented in this encounter Care Teams Continuous Improvement Facilitator Relationship Specialty Start Date End Date Romeo Corbin MD [address] [place] [address] PCP - General 09/23/14 05/26/23 documented as of this encounter
--- OUTSIDE RECORDS SUMMARY | 2024-03-25 14:01 | XMS_ITS | Encounter Summary ---
Author Organization [facility] [place] [address] Care Team Providers Care Spice Room Worker Name Role Phone Romeo Corbin MD Primary Care Provider [phone] Reason for Visit * - Closed Specialty Diagnoses / Procedures Referred By Arabella kirby Referred To Contact Procedures Film Library- Storage Only Ultrasound Study Romeo Corbin MD [address] [place] [address] Referral ID Status Reason Start Date Expiration Date Visits Re quested Visits Authorized [id number] Closed 10/31/2020 10/31/2021 1 1 Encounter Details Date Type Department Care Team (Late st Contact Info) Description 07/01/2020 Ancillary Procedure Radiology Library at [facility] [place] [address] Romeo Corbin MD [address] [place] [address] Social History Tobacco Use Types Packs/Day Years [...] AM EST Office Visit Physical Therapy at [facility] [address] [place] [address] Kierra Moreno, PT [facility] PHYSICAL MEDICINE & [place] [address] 05/05/2024 9:00 AM EST Office Visit Functional Amish Program at [facility] [address] [place] [address] Mireya Nicole, OT 05/19/2024 8:00 AM EST Office Visit Physical Therapy at [facility] [address] [place] [address] Kierra Moreno, PT [facility] PHYSICAL MEDICINE & [place] [address] 06/02/2024 9:00 AM EST Office Visit Physical Therapy at [facility] [address] [place] [address] Kierra Moreno, PT [facility] PHYSICAL MEDICINE & [place] [address] documented as of this encounter Procedures Procedure Name Priority Date/Time Associated Diagnosis Comments FILM LIBRARY STORAGE ONLY ULTRASOUND STUDY Routine 07/01/2020 12:00 AM EST documented in this encounter Results * Film Library- Storage Only Ultrasound Study (07/01/2020 12:00 AM EST) Narrative [facility] - 10/31/2020 9:49 AM EDT This exam is auto-finalizing. It's purpose is for storage only. Romeo Corbin MD G FILM LIBRARY ORD ERABLES [place], [place] documented in this encounter Visit Diagnoses Not on filedocumented in this encounter Care Teams Spice Room Worker Relationship Specialty Start Date End Date Romeo Corbin MD [address] [place] [address] PCP - General 09/23/14 05/26/23 documented as of this encounter
--- OUTSIDE RECORDS SUMMARY | 2024-03-25 14:01 | XMS_ITS | Encounter Summary ---
Author Organization [facility] [place] [address] Care Team Providers Care Sawsmith Name Role Phone Unknown Primary Care Provider Unavailabl e Encounter Details Date Type Department Care Team (Late st Contact Info) Description 02/03/2014 [place] [address] Jose Luis Hernandes, [facility] [place] [address] Social History Tobacco Use Types Packs/Day Years Used Date Smoking Tobacco: Never Assessed Sex and Gender Information Value Date Recorded Sex Assigned at Not on file Gender Identity Not on file Sexual Orientation Not on file documented as of this encounter Miscellaneous Notes * Telephone Encounter - Jose Luis Hernandes - 02/03/2014 11:56 PM EDT Called by provider, Dr. Rose, stating that Mr. Judge had arrived at ED with complaint of dizziness following roller coaster ride last weekend. Dizziness was persisting and PCP suggested imaging eval was needed. CT head was normal. Ruth Hallpike was positive to the right. Provider asking to transfer to [facility] for further eval or follow-up tomorrow for vessel imaging. Suggesting that CTA is notavailable there. Suggested that he follow-up with radiology there as I doubt that CTA head and neckis unavailable there, although this would mainly be to rule out as it sounds like BPPV. documented in this encounter Plan of Treatment Upcoming Encounters Date Type Department Care Team (Late st Contact Info) Description 05/05/2024 8:00 AM EST Office Visit Physical Therapy at [facility] [address] [place] [address] Kierra Moreno, PT [facility] PHYSICAL MEDICINE & [place] [address] 05/05/2024 9:00 AM EST Office Visit Functional Anglican Program at [facility] [address] [place] [address] Mireya Nicole, OT 05/19/2024 8:00 AM EST Office Visit Physical Therapy at [facility] [address] [place] [address] Kierra Moreno, PT [facility] PHYSICAL MEDICINE & [place] [address] 06/02/2024 9:00 AM EST Office Visit Physical Therapy at [facility] [address] [place] [address] Kierra Moreno, PT [facility] PHYSICAL MEDICINE & [place] [address] documented as of this encounter Visit Diagnoses Not on filedocumented in this encounter Care Teams Sawsmith Relationship Specialty Start Date End Date Unknown None PCP - General 02/03/14 09/22/14 documented as of this encounter
--- OUTSIDE RECORDS SUMMARY | 2024-03-25 14:01 | XMS_ITS | Encounter Summary ---
Author Organization [facility] [place] [address] Care Team Providers Care Svp Innovation [employer]s Name Role Phone Romeo Corbin MD Primary Care Provider [phone] Encounter Details Date Type Department Care Team (Late st Contact Info) Description 02/09/2015 [place] [phone] Maria Fernanda Craft I Social History Tobacco Use Types Packs/Day Years Used Date Smoking Tobacco: Never Smokeless Tobacco: Never Sex and Gender Information Value Date Recorded Sex Assigned at Not on file Gender Identity Not on file Sexual Orientation Not on file documented as of this encounter Miscellaneous Notes * Telephone Encounter - Maria Fernanda Craft I - 02/09/2015 11:00 AM EDT Spoke with patient's insurance for prior auth on [facility] at [facility]. Auth # [id number] valid for 60 days. documented in this encounter Plan of Treatment Upcoming Encounters Date Type Department Care Team (Late st Contact Info) Description 05/05/2024 8:00 AM EST Office Visit Physical Therapy at [facility] [address] [place] [address] Kierra Moreno, PT [facility] PHYSICAL MEDICINE & [place] [address] 05/05/2024 9:00 AM EST Office Visit Functional Mandaen Program at [facility] [address] [place] [address] Mireya Nicole, OT 05/19/2024 8:00 AM EST Office Visit Physical Therapy at [facility] [address] [place] [address] Kierra Moreno, PT [facility] PHYSICAL MEDICINE & [place] [address] 06/02/2024 9:00 AM EST Office Visit Physical Therapy at [facility] [address] [place] [address] Kierra Moreno, PT [facility] PHYSICAL MEDICINE & [place] [address] documented as of this encounter Visit Diagnoses Not on filedocumented in this encounter Care Teams [employer] Relationship Specialty Start Date End Date Romeo Crobin MD [address] [place] [address] PCP - General 09/23/14 05/26/23 documented as of this encounter
--- OUTSIDE RECORDS SUMMARY | 2024-03-25 14:01 | XMS_ITS | Encounter Summary ---
Author Organization [facility] Address [facility] [place] [address] Care Team Providers Care Knitting Inspector Name Role Phone Romeo Corbin MD Primary Care Provider [phone] Reason for Visit * - Closed Specialty Diagnoses / Procedures Referred By Arabella t Referred To Contact Procedures Film Library- Storage Only CT Abdomen & Pelvis Romeo Corbin MD [address] [place] [address] Referral ID Status Reason Start Date Expiration Date Visits Re quested Visits Authorized [id number] Closed 10/31/2020 10/31/2021 1 1 Encounter Details Date Type Department Care Team (Late st Contact Info) Description 09/09/2020 Ancillary Procedure Radiology Library at [facility] [place] [address] Romeo Corbin MD [address] [place] [address] Social History Tobacco Use Types [...] AM EST Office Visit Physical Therapy at [facility] [address] [place] [address] Kierra Moreno, PT [facility] PHYSICAL MEDICINE & [place] [address] 05/05/2024 9:00 AM EST Office Visit Functional Latter Day Program at [facility] [address] [place] [address] Mireya Nicole, OT 05/19/2024 8:00 AM EST Office Visit Physical Therapy at [facility] [address] [place] [address] Kierra Moreno, PT [facility] PHYSICAL MEDICINE & [place] [address] 06/02/2024 9:00 AM EST Office Visit Physical Therapy at [facility] [address] [place] [address] Kierra Moreno, PT [facility] PHYSICAL MEDICINE & [place] [address] documented as of this encounter Procedures Procedure Name Priority Date/Time Associated Diagnosis Comments FILM LIBRARY STORAGE ONLY CT ABDOMEN AND PELVIS Routine 09/09/2020 12:00 AM EDT documented in this encounter Results * Film Library- Storage Only CT Abdomen & Pelvis (09/09/2020 12:00 AM EDT) Narrative [facility] - 10/31/2020 9:53 AM EDT This exam is auto-finalizing. It's purpose is for storage only. Romeo Corbin MD [facility] FILM LIBRARY ORD ERABLES [place], [place] documented in this encounter Visit Diagnoses Not on filedocumented in this encounter Care Teams Knitting Inspector Relationship Specialty Start Date End Date Romeo Corbin MD [address] [place] [address] PCP - General 09/23/14 05/26/23 documented as of this encounter
--- OUTSIDE RECORDS SUMMARY | 2024-03-25 14:01 | XMS_ITS | Encounter Summary ---
Author Organization [facility] [place] [address] Care Team Providers Care Manager Quality Compliance Name Role Phone Romeo Corbin MD Primary Care Provider Reason for Visit * Auth/Cert (Routine) Specialty Diagnoses / Procedures Referred By Contac t Referred To Contact Diagnoses lumbar radiculopathy Procedures PRO INJECTION DX/THER SBST INTRLMNR LMBR/SAC W/IMG GDN INJECTION, EPIDURAL, LUMBAR OR SACRAL (CAUDAL), WITH IMAGING GUIDANCE (WRVU 1.8) Edwin Khan MD [facility] [place] [address] [facility] Referral ID Status Reason Start Date Expiration Date Visits Re quested Visits Authorized [id number] 1 1 Encounter Details Date Type Department Care Team (Late st Contact Info) Description 10/15/2022 3:30 PM EDT - 10/15/2022 4:00 PM EDT Surgery [place] [address] Edwin Khan MD [facility] [place] [address] INJECTION, EPIDURAL, LUMBAR OR SACRAL (CAUDAL), WITH [...] to left leg(s). PAIN LEVEL AT REST /10 PAST MEDICAL HISTORY: Past Medical History: Diagnosis [...] Operative Note Patient Name: Som Judge : [id number] MR#: [id number] Case Date: 10/15/2022 Surgeon: Surgeon(s) and Role: [...] nursing records. PLAN: 1. Follow up with Lacey RADHA Gleason in 3-5 weeks. Post procedure [...] Att[facility] [address] [address] / CC: Romeo Corbin MD [facility] [address] [address] documented in this encounter Plan of Treatment Upcoming Encounters Date Type Department Care Team (Late st Contact Info) Description 05/05/2024 8:00 AM EST Office Visit Physical Therapy at [facility] [address] [place] [address] Kierra Moreno, PT [facility] PHYSICAL MEDICINE & [place] [address] 05/05/2024 9:00 AM EST Office Visit Functional Confucianism Program at [facility] [address] [place] [address] Mireya Nicole OT 05/19/2024 8:00 AM EST Office Visit Physical Therapy at [facility] [address] [place] [address] Kierra Moreno, PT [facility] PHYSICAL MEDICINE & [place] [address] 06/02/2024 9:00 AM EST Office Visit Physical Therapy at [facility] [address] [place] [address] Kierra Moreno, PT [facility] PHYSICAL MEDICINE & [place] [address] documented as of this encounter Procedures Procedure Name Priority Date/Time Associated Diagnosis Comments Injection Dx/Ther Sbst Intrlmnr Lmbr/Sac W/Img Gdn ([id number]) 10/15/2022 3:54 PM EDT Radiculopathy of lumbar [...] Rate Site iohexoL (Omnipaque) (240 mg/mL) solution ONCE PRN, Starting on Sat10/15/22 at 1603, Until Sat10/15/22 at 1808, Intra-Operative (Intra-Procedure), Routine Given 10/15/2022 4:03 PM EDT 1 mL lidocaine (pf) (Xylocaine) (10 mg/mL) 1% injection ONCE PRN, Starting on Sat10/15/22 at 1603, Until Sat10/15/22 at 1808, Intra-Operative (Intra-Procedure), Routine Given 10/15/2022 4:03 PM EDT 2 mLs methylPREDNISolone acetate (DEPO-Medrol) (80 mg/mL) injection ONCE PRN, Starting on Sat10/15/22 at 1604, Until Sat10/15/22 at 1808, Intra-Operative (Intra-Procedure), Routine Given 10/15/2022 4:04 PM EDT 80 mg documented in this encounter Active and Recently Administered Medications Times are shown in EDT. PRN Medication Order 10/13/2022 10/14/2022 10/15/2022 iohexoL (Omnipaque) (240 mg/mL) solution (CANCELED) ONCE PRN, Starting on Sat10/15/22 at 1603, Until Sat10/15/22 at 1808, Intra-Operative (Intra-Procedure), Routine 1603 (Given - Provid er: Miah Hwang MD - Comment: delfino) lidocaine (pf) (Xylocaine) (10 mg/mL) 1% injection (CANCELED) ONCE PRN, Starting on Sat10/15/22 at 1603, Until Sat10/15/22 at 1808, Intra-Operative (Intra-Procedure), Routine 1603 (Given - Provid er: Miah Hwang MD - Comment: delfino) methylPREDNISolone acetate (DEPO-Medrol) (80 mg/mL) injection (CANCELED) ONCE PRN, Starting on Sat10/15/22 at 1604, Until Sat10/15/22 at 1808, Intra-Operative (Intra-Procedure), Routine 1604 (Given - Provid er: Miah Hwang MD - Comment: delfino) documented in this encounter Care Teams Manager Quality Compliance Relationship Specialty Start Date End Date Romeo Corbin MD [address] [place] [address] PCP - General 09/23/14 05/26/23 documented as of this encounter
--- OUTSIDE RECORDS SUMMARY | 2024-03-25 14:01 | XMS_ITS | Encounter Summary ---
Author Organization [facility] [place] [address] Care Team Providers Care Rn Oncology Name Role Phone Romeo Corbin MD Primary Care Provider [phone] Reason for Visit * Auth/Cert (Routine) Specialty Diagnoses / Procedures Referred By Contac t Referred To Contact Diagnoses lumbar radiculopathy Procedures PRO INJECTION DX/THER SBST INTRLMNR LMBR/SAC W/IMG GDN INJECTION, EPIDURAL, LUMBAR OR SACRAL (CAUDAL), WITH IMAGING GUIDANCE (WRVU 1.8) Edwin Khan MD [facility] [place] [address] [facility] Referral ID Status Reason Start Date Expiration Date Visits Re quested Visits Authorized [id number] 1 1 Encounter Details Date Type Department Care Team (Late st Contact Info) Description 10/15/2022 3:30 PM EDT Ancillary [place] [address] Edwin Khan MD [facility] [place] [address] Social History Tobacco Use Types Packs/Day Years [...] AM EST Office Visit Physical Therapy at [facility] [address] [place] [address] Kierra Moreno, PT [facility] PHYSICAL MEDICINE & [place] [address] 05/05/2024 9:00 AM EST Office Visit Functional Samaritan Program at [facility] [address] [place] [address] Mireya Nicole, OT 05/19/2024 8:00 AM EST Office Visit Physical Therapy at [facility] [address] [place] [address] Kierra Moreno, PT [facility] PHYSICAL MEDICINE & [place] [address] 06/02/2024 9:00 AM EST Office Visit Physical Therapy at [facility] [address] [place] [address] Kierra Moreno, PT [facility] PHYSICAL MEDICINE & [place] [address] documented as of this encounter Procedures Procedure Name Priority Date/Time Associated Diagnosis Comments FILM LIBRARY STORAGE ONLY PAIN CLINIC C ARM Routine 10/15/2022 4:35 PM EDT documented in this encounter Results * Film Library- Storage Only pain Clinic C-Arm (10/15/2022 4:35 PM EDT) Narrative [facility] - 10/15/2022 4:35 PM EDT See PACS for result report. Edwin Khan MD IMG FILM LIBRARY ORD ERABLES [place], [place] documented in this encounter Visit Diagnoses Not on filedocumented in this encounter Care Teams Rn Oncology Relationship Specialty Start Date End Date Romeo Corbin MD [address] [place] [address] PCP - General 09/23/14 05/26/23 documented as of this encounter
--- OUTSIDE RECORDS SUMMARY | 2024-03-25 14:01 | XMS_ITS | Encounter Summary ---
[place] [address] Care Team Providers Care Hrbp Name Role Phone Romeo Corbin MD Primary Care Provider [phone] Reason for Referral * Diagnostic Test (Routine) - Closed Specialty Diagnoses / Procedures Referred By Contac t Referred To Contact Radiology Diagnoses Functional dyspepsia Procedures NM Gastric Emptying Scan Paul Holman MD [facility] [place] [address] [place] [address] Referral ID Status Reason Start Date Expiration Date V isits Requested Visits Authorized [id number] Closed Specialty Service Requested 08/27/2022 02/28/2024 1 1 Reason for Visit * Diagnostic Test (Routine) - Closed Specialty Diagnoses / Procedures Referred By Contac t Referred To Contact Radiology Diagnoses Functional dyspepsia Procedures NM Gastric Emptying Scan Paul Holman MD [facility] [place] [address] [place] [address] Referral ID Status Reason Start Date Expiration Date V isits Requested Visits Authorized [id number] Closed Specialty Service Requested 08/27/2022 02/28/2024 1 1 Encounter Details Date Type Department Care Team (Latest Contact Info) Description 09/13/2022 9:45 AM EDT Hospital Encounter [place] [address] Paul Holman MD [facility] [place] [address] Functional dyspepsia Discharge Disposition: Home Social History [...] AM EST Office Visit Physical Therapy at [facility] [address] [place] [address] Kierra Moreno, PT [facility] PHYSICAL MEDICINE [place] [address] 05/05/2024 9:00 AM EST Office Visit Functional Mormonism Program at [facility] [address] [place] [address] Mireya Nicole, OT 05/19/2024 8:00 AM EST Office Visit Physical Therapy at [facility] [address] [place] [address] Kierra Moreno, PT [facility] PHYSICAL MEDICINE [place] [address] 06/02/2024 9:00 AM EST Office Visit Physical Therapy at [facility] [address] [place] [address] Kierra Moreno, PT [facility] PHYSICAL MEDICINE [place] [address] documented as of this encounter Procedures Procedure [...] have questions please contact the health home day care provider that requested your imaging first. ? Electronically signed by: Huey Thompson MD, [facility] ([phone]), at 09/13/2022 3:34 PM Narrative 09/13/2022 3:34 [...] who have questions please contactthe health home day care provider that requested your imaging first. Electronically signed by: Huey Thompson MD, [facility]([phone]), at 09/13/2022 3:34 PM Paul Holman MD IMG NM ORDERABLES documented in this encounter Visit Diagnoses Diagnosis Functional dyspepsia Dyspepsia and other specified disorders of function of stomach documented in this encounter Administered Medications Inactive Administered Medications - up to 3 most recent administrations Medication Order MAR Action Action Date Dose Rate Site technetium (Tc-99m) sulfur colloid injection 0-18 mCi 0-18 mCi, Oral, ONCE PRN, 1 dose, Starting on Caren 09/13/22 at 0959, Until Caren 09/13/22 at 1000, Per Protocol, Radiology Contrast, Routine Given 09/13/2022 10:00 AM EDT 0.5 mCi documented in this encounter Care Teams Hrbp Relationship Specialty Start Date End Date Romeo Corbin MD [address] [place] [address] PCP - General 09/23/14 05/26/23 documented as of this encounter
--- OUTSIDE RECORDS SUMMARY | 2024-03-25 14:01 | XMS_ITS | Encounter Summary ---
Author Organization [facility] [place] [address] Care Team Providers Care Visual Education Director Name Role Phone Romeo Corbin MD Primary Care Provider [phone] Encounter Details Date Type Department Care Team (Late st Contact Info) Description 01/03/2021 Telephone [facility] [place] [address] Sary Franco Social History Tobacco Use Types Packs/Day Years Used Date Smoking Tobacco: Never Smokeless Tobacco: Never Sex and Gender Information Value Date Recorded Sex Assigned at Not on file Gender Identity Not on file Sexual Orientation Not on file documented as of this encounter Miscellaneous Notes * Telephone Encounter - Sary Franco - 01/03/2021 1:36 PM EDT MRI ORDER HAS BEEN EMAILED TO RADIOLOGY PART OF THE [facility] PROCESS FOR BATCH SCHEDULING. FOR DETAILS SEE BELOW: Type of MRI: Lumbar Spine Date e-mail sent to MRI schedulers: January 03, 2021 Ordering Provider: Lacey Gleason, MSN, [employer] 9 THRU 12 TEACHER Follow up needed by: DALY Visit type: Telehealth Zoom documented in this encounter Plan of Treatment Upcoming Encounters Date Type Department Care Team (Late st Contact Info) Description 05/05/2024 8:00 AM EST Office Visit Physical Therapy at [facility] [address] [place] [address] Kierra Moreno, PT [facility] PHYSICAL MEDICINE [place] [address] 05/05/2024 9:00 AM EST Office Visit Functional Restorationist Program at [facility] [address] [place] [address] Mireya Nicole, OT 05/19/2024 8:00 AM EST Office Visit Physical Therapy at [facility] [address] [place] [address] Kierra Moreno, PT [facility] PHYSICAL MEDICINE [place] [address] 06/02/2024 9:00 AM EST Office Visit Physical Therapy at [facility] [address] [place] [address] Kierra Moreno, PT [facility] PHYSICAL MEDICINE [place] [address] documented as of this encounter Visit Diagnoses Not on filedocumented in this encounter Care Teams Visual Education Director Relationship Specialty Start Date End Date Romeo Corbin MD [address] [place] [address] PCP - General 09/23/14 05/26/23 documented as of this encounter
--- OUTSIDE RECORDS SUMMARY | 2024-03-25 14:01 | XMS_ITS | Encounter Summary ---
Author Organization [facility] Address [address] [place] [address] Care Team Providers Care Fagoter Name Role Phone Unavailable Primary Care Provider Unavailabl e Encounter Details Date Type Department Care Team (Late st Contact Info) Description 03/06/2023 Lab Requisition [facility] Pathology & Laboratory Medicine - [address] [id number] Outr Resulting Lab, Provider Social History Tobacco Use Types Packs/Day Years Used Date Smoking Tobacco: Never Assessed Sex and Gender Information Value Date Recorded Sex Assigned at Not on file Gender Identity Not on file Sexual Orientation Not on file documented as of this encounter Plan of Treatment Not on file documented as of this encounter Procedures Procedure Name Priority Date/Time Associated Diagnosis Comments PSA TOTAL, DIAGNOSTIC Routine 03/06/2023 13:32 EDT documented in this encounter Results * PSA TOTAL, DIAGNOSTIC (03/06/2023 13:32 EDT) PSA 0.2 <=3.5 ng/mL 03/06/2023 23:04 EDT [facility] Blood VENOUS BLOOD / Unknown 03/06/2023 13:32 EDT 03/06/2023 22:00 EDT Narrative [facility] - 03/06/2023 23:04 EDT NOTE: Serum PSA concentration should not be interpreted as absolute evidence for the presence or absence of malignant disease. Assayed on Siemens ADVIA 2,10E+07aur XPT using chemiluminescent technology.??Values obtained by using different assay methods cannot be used interchangeably. Provider Outr Resulting Lab CHEMISTRY & BLOOD GAS ORDERABLES [facility] [address] [place] [address] documented in this encounter Visit Diagnoses Not on filedocumented in this encounter
--- OUTSIDE RECORDS SUMMARY | 2024-03-25 14:01 | XMS_ITS | Encounter Summary ---
Author Organization [facility] [place] [address] Care Team Providers Care Goat Farmer Name Role Phone Romeo Corbin MD Primary Care Provider [phone] Reason for Referral * Physical Therapy (Routine) - Closed Specialty Diagnoses / Procedures Referred By Contac t Referred To Contact Physical Therapy Diagnoses Radiculopathy of lumbar region Lacey Gleason APRN [facility] [place] [address] Referral ID Status Reason Start Date Expiration Date V isits Requested Visits Authorized [id number] Closed Evaluate and Treat Non PCP 08/28/2022 02/24/2023 12 12 Reason for Visit * Reason Comments Follow-up F/U EXT- continued b ack pain and leg pain/ discuss TX options Encounter Details Date Type Department Care Team (Latest Contact Info) Description 08/28/2022 2:00 PM EDT Office Visit [place] [address] Lacey Gleason APRN [facility] [place] [address] Radiculopathy of lumbar region Social History Tobacco [...] Sign Reading Time Taken Comments Blood Pressure 145/82 08/28/2022 1:45 PM EDT Pulse 95 08/28/2022 1:45 PM EDT Temperature - - Respiratory Rate - - Oxygen Saturation 99% 08/28/2022 1:45 PM EDT Inhaled Oxygen Concentration - - Weight 99.8 kg (220 lb) 08/28/2022 1:45 PM EDT Height 182.9 cm (6') 08/28/2022 1:45 PM EDT Body Mass Index 29.84 08/28/2022 1:45 PM EDT documented in this encounter Progress Notes * Lacey Gleason, RADHA - 08/28/2022 2:00 PM EDT [facility] [place] [address] Phone: PAIN MANAGEMENT INTERVAL FOLLOW UP VISIT NOTE DATE OF VISIT 08/28/2022 Patient Som Judge 1970 REFERRING PROVIDER Kaushik Mccauley APRN [address] [place] [address] PRIMARY CARE PROVIDER Romeo Corbin MD Reason for Visit: Som Judge is a 52 y.o. male with lower back pain radiating into the groin/testicles and abdomen as well as into the buttocks and posterior thighs and occasionally to the Great toe, worse on the left. He is again having the intermittent radiating pain. Patient was last seen in January 2021. He finds that when his abdominal symptoms are increased, his other pain generators flare up. He sawDr. Holman yesterday and will have further testing. He is concerned because he will be needing to prepare wood soon and has had increased back pain with lifting. He is also missing work and has not been able to do the hiking he had been. Prolonged sitting is also very painful. Using a thc/cbd tincture which he uses at night and is helpful for sleep and pain. Pain score: 6/10 With activity, his pain level increases. It is worse at night. 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 Works for [employer] Completed PT and he continues with HEP consistently. Over the past couple of months, he has noticedan increase in his pain. Patient denies any new neurological symptoms. Denies ataxia, uvaldo weakness, bladder/bowel complaints. Denies recent hospitalizations since last visit. Denies fever, chills. Past medical, social and family history is unchanged. Physical Exam: ?? Patient Vitals for the past 24 hrs: Pulse BP SpO2 08/28/22 1345 95 145/82 99 % Appearance/ Behavior Well groomed, good eye contact, relaxed, cooperative, normal speech, no acute distress, no involuntary movements Eyes Sclera anicteric, conjunctiva clear. ENT Hearing grossly intact Lungs Normal respiratory effort Skin No rash, asymmetric hair loss, bruises, scars, swelling Musckuloskeletal Inspection/Palpation/ Range of Motion/Facet Loading maneuvers Gait: Antalgic to back pain Heel left weak Toe intact ?? Inspection: good alignment, no excessive curvature, shoulder and hip levels equal bilaterally; no skin breakdown. ?? Palpation: There is tenderness in the paraspinal musculature bilaterally, in the lower lumbar region much worse on the left. There is some tenderness in the upper lumbar midline. Tender left SI joint ?? ROM: Flexion is limited to 50 degrees due to pain. Extension is 10 degrees. ?? SLR: Negative ?? Facet Loading: Positive ? Neuro Motor Strength Segment Muscle Action Bilateral [...] 5/5 L5 Extensor hallucis Great toe extension Left 4/5 S1 Gastrocnemius Ankle Plantar flexion 5/5 ? Reflexes: Segment Tendon Bilateral C5 Biceps 2+ C6 Brachioradialis 2+ C7 Triceps 2+ Upper Euceda Neg L3-4 Patella 2+ S1 Ankle Left 1+ Lower Babinski Down going Clonus ?? 4 beats* *no change Sensory Exam: No change. ?? Vascular: warm to touch + 2 pedal pulses, no lower extremity edema or cyanosis noted. ? Imaging Studies: 01/25/2021 EXAMINATION: MRI LUMBAR SPINE WO CONTRAST (GENERIC) [...] RIGHT identified. Conus not included in the [id number]-tobf, probably terminating at the level of T12. [...] root. ?? Assessment Som Judge is a 52y.o. male with lower back pain radiating into the groin/testicles and abdomen as well as into the buttocks and posterior thighs worse on the left. Imaging shows impingement onthe L4 and the S1 nerve roots due to disc protrusions at both L4-5 and L5-S1. Plan Resume PT Procedure: Lumbar Epidural Steroid Injection Laterality: Left > Levels: L5-S1 Contrast Required? Yes Pertinent Medical History - h/o Thrombocytopenia/bleeding tendency/platelet dysfunction: no - h/o Liver disease/abnormal liver function: no - h/o Chronic kidney disease (CKD)/abnormal kidney function: no - Patient on dialysis? no DEBRA Risk Stratification - Intermediate Is patient taking an anticoagulant? No Is patient taking any NSAIDs/Nutritional Supplements? No Is patient taking Aspirin? No Is patient taking Antibiotics? No Has patient been on greater than 40mg [...] Visit 3-4 weeks with Lacey Gleason MSN, GRE[employer] W[employer] CASTER At this time there are no red flag symptoms on history. Patient instructed to go to emergency department if new or worsening neurological symptoms develop. Patient verbalized agreement of the plan. All of patient's questions were answered to his satisfaction. Time spent on this visit reflects time evaluating the patient pre-visit, during the visit and post-visit. Total time spent 40 minutes NEELAM Castro, [facility] [address] [address] / documented in this encounter Plan of Treatment Upcoming Encounters Date Type Department Care Team (Late st Contact Info) Description 05/05/2024 8:00 AM EST Office Visit Physical Therapy at [facility] [address] [place] [address] Kierra Moreno, PT [facility] PHYSICAL MEDICINE & [place] [address] 05/05/2024 9:00 AM EST Office Visit Functional Mormonism Program at [facility] [address] [place] [address] Mireya Nicole, OT 05/19/2024 8:00 AM EST Office Visit Physical Therapy at [facility] [address] [place] [address] Kierra Moreno, PT [facility] PHYSICAL MEDICINE & [place] [address] 06/02/2024 9:00 AM EST Office Visit Physical Therapy at [facility] [address] [place] [address] Kierra Moreno, PT [facility] PHYSICAL MEDICINE & [place] [address] Scheduled Referrals Name Type Priority Associated Diagnoses Orde r Schedule Referral to Physical Therapy Outpatient Referral Routine Radiculopathy of lumbar region Ordered: 08/28/2022 documented as of this encounter Visit Diagnoses Diagnosis Radiculopathy of lumbar region Thoracic or lumbosacral neuritis or radiculitis, unspecified documented in this encounter Care Teams Goat Farmer Relationship Specialty Start Date End Date Romeo Corbin MD [address] [place] [address] PCP - General 09/23/14 05/26/23 documented as of this encounter
--- OUTSIDE RECORDS SUMMARY | 2024-03-25 14:01 | XMS_ITS | Encounter Summary ---
Author Organization [facility] [place] [address] Care Team Providers Care Mobile Ui/Ux Designer Name Role Phone Romeo Corbin MD Primary Care Provider [phone] Encounter Details Date Type Department Care Team (Late st Contact Info) Description 02/14/2015 [place] [address] Ritesh Schroeder MD [facility] [place] [address] Social History Tobacco Use Types Packs/Day Years [...] [facility] [address] [place] [address] Kierra Moreno, PT [facility] PHYSICAL MEDICINE & [place] [address] 05/05/2024 9:00 AM EST Office Visit Functional Jain Program at [facility] [address] [place] [address] Mireya Nicole OT 05/19/2024 8:00 AM EST Office Visit Physical Therapy at [facility] [address] [place] [address] Kierra Moreno, PT [facility] PHYSICAL MEDICINE & [place] [address] 06/02/2024 9:00 AM EST Office Visit Physical Therapy at [facility] [address] [place] [address] Kierra Moreno, PT [facility] PHYSICAL MEDICINE & [place] [address] documented as of this encounter Procedures Procedure Name Priority Date/Time Associated Diagnosis Comments FILM LIBRARY STORAGE ONLY CT ABDOMEN AND PELVIS Routine 02/14/2015 7:15 PM EDT documented in this encounter Results * Film Library- Storage only CT abdomen & pelvis (02/14/2015 7:15 PM EDT) Anatomical Region Laterality Modality Abdomen, Pelvis Other 02/14/2015 7:15 PM EDT Narrative 02/14/2015 7:35 PM EDT This is a Non-reportable exam Procedure Note JACQUELINE, UNSIGNED REPORT - 02/14/2015 This is a Non-reportable exam Ritesh Schroeder MD IMG FILM LIBRARY O RDERABLES documented in this encounter Visit Diagnoses Not on filedocumented in this encounter Care Teams Mobile Ui/Ux Designer Relationship Specialty Start Date End Date Romeo Corbin MD [address] [place] [address] PCP - General 09/23/14 05/26/23 documented as of this encounter
--- OUTSIDE RECORDS SUMMARY | 2024-03-25 14:01 | XMS_ITS | Encounter Summary ---
Author Organization [facility] Address [facility] [place] [address] Care Team Providers Care Bi Data Architect Name Role Phone Romeo Corbin MD Primary Care Provider [phone] Encounter Details Date Type Department Care Team (Latest Contact Info) Description 08/28/2022 Travel Social History Tobacco Use Types Packs/Day [...] AM EST Office Visit Physical Therapy at [facility] [address] [place] [address] Kierra Moreno, PT [facility] PHYSICAL MEDICINE & [place] [address] 05/05/2024 9:00 AM EST Office Visit Functional Mosque Program at [facility] [address] [place] [address] Mireya Nicole, OT 05/19/2024 8:00 AM EST Office Visit Physical Therapy at [facility] [address] [place] [address] Kierra Moreno, PT [facility] PHYSICAL MEDICINE & [place] [address] 06/02/2024 9:00 AM EST Office Visit Physical Therapy at [address] [place] [address] Kierra Moreno, PT [facility] PHYSICAL MEDICINE & [place] [address] documented as of this encounter Visit Diagnoses Not on filedocumented in this encounter Care Teams Bi Data Architect Relationship Specialty Start Date End Date Romeo Corbin MD [address] [place] [address] PCP - General 09/23/14 05/26/23 documented as of this encounter
--- OUTSIDE RECORDS SUMMARY | 2024-03-25 14:01 | XMS_ITS | Encounter Summary ---
Author Organization [facility] [place] [address] Care Team Providers Care Cement Or Concrete Finishing Supervisor Name Role Phone Romeo Corbin MD Primary Care Provider [phone] Encounter Details Date Type Department Care Team (Late st Contact Info) Description 01/10/2021 Telephone [place] [address] Tlai Moyer Social History Tobacco Use Types Packs/Day Years Used Date Smoking Tobacco: Never Smokeless Tobacco: Never Sex and Gender Information Value Date Recorded Sex Assigned at Not on file Gender Identity Not on file Sexual Orientation Not on file documented as of this encounter Miscellaneous Notes * Telephone Encounter - Tali Moyer - 01/10/2021 [...] [facility] [address] [place] [address] Kierra Moreno, PT [facility] PHYSICAL MEDICINE & [place] [address] 05/05/2024 9:00 AM EST Office Visit Functional Voodoo Program at [facility] [address] [place] [address] Mireya Nicole, OT 05/19/2024 8:00 AM EST Office Visit Physical Therapy at [facility] [address] [place] [address] Kierra Moreon, PT [facility] PHYSICAL MEDICINE [place] [address] 06/02/2024 9:00 AM EST Office Visit Physical Therapy at [facility] [address] [place] [address] Kierra Moreno, PT [facility] PHYSICAL MEDICINE & [place] [address] documented as of this encounter Visit Diagnoses Not on filedocumented in this encounter Care Teams Cement Or Concrete Finishing Supervisor Relationship Specialty Start Date End Date Romeo Corbin MD [address] [place] [address] PCP - General 09/23/14 05/26/23 documented as of this encounter
--- OUTSIDE RECORDS SUMMARY | 2024-03-25 14:01 | XMS_ITS | Encounter Summary ---
Author Organization [facility] [place] [address] Care Team Providers Care Destination Sign Repairer Name Role Phone Romeo Corbin MD Primary Care Provider Reason for Referral * Consultation (Routine) - Closed Specialty Diagnoses / Procedures Referred By Arabella kirby Referred To Contact Gastroenterology Diagnoses Abdominal pain, unspecified abdominal location Abdominal pain Jennifer Thorpe APRN [address] [place] [address] [facility] [place] [address] Referral ID Status Reason Start Date Expiration Date V isits Requested Visits Authorized [id number] Closed Consult, Test & Treat PCP Updated and/or Approved 04/24/2022 04/24/2023 6 6 Encounter Details Date Type Department Care Team (Late st Contact Info) Description 04/24/2022 Transcribe Orders eDH Incoming Referrals [phone] Jennifer Thorpe APRN [address] [place] [address] Abdominal pain, unspecified abdominal location Social History Tobacco Use Types Packs/Day Years [...] AM EST Office Visit Physical Therapy at [facility] [address] [place] [address] Kierra Moreno, PT [facility] PHYSICAL MEDICINE & [place] [address] 05/05/2024 9:00 AM EST Office Visit Functional Buddhist Program at [facility] [address] [place] [address] Mireya Nicole, OT 05/19/2024 8:00 AM EST Office Visit Physical Therapy at [facility] [address] [place] [address] Kierra Moreno, PT [facility] PHYSICAL MEDICINE & [place] [address] 06/02/2024 9:00 AM EST Office Visit Physical Therapy at [facility] [address] [place] [address] Kierra Moreno, PT [facility] PHYSICAL MEDICINE & [place] [address] Scheduled Referrals Name Type Priority Associated Diagnoses Order Schedule Referral to Gastroenterology Outpatient Referral Routine Abdominal pain, unspecified abdominal location Ordered: 04/24/2022 documented as of this encounter Visit Diagnoses Diagnosis Abdominal pain, unspecified abdominal location documented in this encounter Care Teams Destination Sign Repairer Relationship Specialty Start Date End Date Romeo Corbin MD [address] [place] [address] PCP - General 09/23/14 05/26/23 documented as of this encounter
--- OUTSIDE RECORDS SUMMARY | 2024-03-25 14:01 | XMS_ITS | Encounter Summary ---
Author Organization [facility] [place] [address] Care Team Providers Care Playground Equipment Erector Name Role Phone Romeo Corbin MD Primary Care Provider [phone] Reason for Referral * Diagnostic Test (Routine) - Closed Specialty Diagnoses / Procedures Referred By Contac t Referred To Contact Radiology Diagnoses Irritable bowel syndrome with both constipation and diarrhea Procedures MRI Enterography wwo Contrast Paul Holman MD [facility] [place] [address] [place] [address] Referral ID Status Reason Start Date Expiration Date V isits Requested Visits Authorized [id number] Closed Specialty Service Requested 10/09/2022 12/07/2022 1 1 * Diagnostic Test (Routine) - Closed Specialty Diagnoses / Procedures Referred By Contac t Referred To Contact Radiology Diagnoses Functional dyspepsia Procedures NM Gastric Emptying Scan Paul Holman MD [facility] [place] [address] [place] [address] Referral ID Status Reason Start Date Expiration Date V isits Requested Visits Authorized [id number] Closed Specialty Service Requested 08/27/2022 02/28/2024 1 1 * Diagnostic Test (Routine) - Closed Specialty Diagnoses / Procedures Referred By Contac t Referred To Contact Gastroenterology Diagnoses Irritable bowel syndrome with both constipation and diarrhea HBT - glucose - diarrhea Procedures Breath Hydrogen Test Paul Holman MD [facility] [place] [address] [facility] [address] [place] [address] Referral ID Status Reason Start Date Expiration Date V isits Requested Visits Authorized [id number] Closed Consult, Test & Treat 08/27/2022 08/27/2023 1 1 * Diagnostic Test (Routine) - Closed Specialty Diagnoses / Procedures Referred By Contac t Referred To Contact Gastroenterology Diagnoses Irritable bowel syndrome with both constipation and diarrhea ARM for fecal incontinence Procedures High Definition Anal Manometry PRG ANORECTAL MANOMETRY PRG RECTAL SESATION TONE & COMPLIANCE TEST Paul Holman MD [facility] [place] [address] [place] [address] Referral ID Status Reason Start Date Expiration Date V isits Requested Visits Authorized [id number] Closed Consult, Test & Treat 08/27/2022 08/27/2023 1 1 Reason for Visit * Consultation (Routine) - Closed Specialty Diagnoses / Procedures Referred By Contac t Referred To Contact Gastroenterology Diagnoses Abdominal pain, unspecified abdominal location Abdominal pain Jennifer Thorpe W, CEMENT TESTER ASSISTANT [address] [place] [address] [facility] [address] [place] [phone] Referral ID Status Reason Start Date Expiration Date V isits Requested Visits Authorized [id number] Closed Consult, Test & Treat PCP Updated and/or Approved 04/24/2022 04/24/2023 6 6 Encounter Details Date Type Department Care Team (Latest Contact Info) Description 08/27/2022 1:00 PM EDT TH Visit (TeleHealth) [place] [address] Paul Holman MD [facility] [place] [address] Irritable bowel syndrome with both constipation and diarrhea; Functional dyspepsia; Gastroesophageal reflux disease, unspecified whether esophagitis present Social History Tobacco Use Types Packs/Day Years Used Date Smoking Tobacco: Never Smokeless Tobacco: Never Alcohol Use Standard Drinks/Week Comments Not Currently 0 (1 standard drink = 0.6 oz pur e alcohol) Sex and Gender Information Value Date Recorded Sex Assigned at Not on file Gender Identity Not on file Sexual Orientation Not on file documented as of this encounter Patient Instructions * Patient Instructions* Paul Holman MD - 08/27/2022 1:00 PM EDT Functional Bowel Disorders: Information Handout for Patients and Primary Care Providers Paul Holman MD, CPC + Prasanth Lucas MD, LUIS Brett Zhong APRN + Ruthie Echeverria APRN + Mili Grover APRN + KAVITHA Ramirez RN + CULLEN Diaz, PhD [facility] What are functional bowel disorders? These are the most common type of gastrointestinal disorders in the [facility] The most common functional bowel disorder in [...] what is the impact? 15-20% of general [place] population has IBS or FD or both IBS is the 2nd most common cause for lost work days (after common cold) in [place] IBS is estimated to cost the [place] economy 30 billion dollars per year These [...] with immediate onset of symptoms after infection); long-term symptoms are expected in most patients however [...] - this approach benefits most patients OTC (hphj-qpl-odphcoj) medications can be used for ongoing bothersome symptoms as listed below Your doctor (PCP or [facility] Gastroenterology provider or Gastroenterology provider) may decide [...] include All-Bran psyllium buds, Metamucil, bulk psyllium ([employer] stores and bulk stores) Specifically we recommend [...] but convincing medical evidence is still lacking Mpuj-isd-ceuteka supplements are not typically evaluated by FDA [...] on IBS Headspace (anxiety/stress/mindfulness) Calm (anxiety/stress/mindfulness) CBT-I executive business coach (insomnia/sleep problems) Curable (chronic pain) There [...] the likelihood that stressors will cause flares psychologytoday.com ABCT.org ContextualScience.org Gut-directed hypnotherapy for IBS is also supported by research - you may find a provider at [facility].[employer] OTC Medications for Functional Gut Disorders Diarrhea Loperamide [...] a stool softener that is safe for long-term usage (no risk of dependency) andthe dosage [...] under the supervision of a Gastroenterology provider ([facility] or ) or Primary Care Provider Authors are not liable for misuse/misinterpretation of this information Patient Resources [place] [employer] https://www.gastro.org/practice-guidance/ap-updouky-flojoz/ topic/cbflibdxt-wkgof-qxkkqcjz-ibs Badgut.org https://badgut.org/information-centre/d-x-mwopypfut-topics/ibs/ AboutIBS.org https://www.aboutibs.org/ Uptodate.com https://www.PagoFaciltodate.com/contents/pdpxidgox-dtmwj-oqxnnynr-yxhsrp-rmv-beijwu documented in this encounter Progress Notes * Paul Holman MD - 08/27/2022 1:00 PM EDT GI MOTILITY CENTER TELEMEDICINE PROGRAM Chief Complaint: Som Judge is a 52 y.o. patient referred for consultation by Dr. Thorpe for chronic abdominal pain. Referred for second opinion followed by Jennifer Thorpe APRN in [place] History of Present Illness: 52 y.o. male with past medical history of hypothyroidism, kidney stones, chronic back pain, laryngeal trauma, shoulder surgery, vasectomy Chronic dyspepsia symptoms with early satiety, post-prandial fullness, bloating,and upper abdominaldiscomfort. Variable course over time with gradual worsening one year ago. Regular nausea - few times per week. Not related to meals. No regular vomiting. Worse with certain foods. No dysphagia. Chronic heartburn and regurgitation. No symptoms on current therapies. Chronically altered bowel movements -historically predominantly diarrhea. Variable course over timewith gradual worsening last year. No obvious precipitant. Currently 5-10 bowel movements per day. Constant sensation of fullness and will sit on toilet - most times he will be able to pass a small sto ol and feel better. Associated generalized lower abdominal discomfort and excessive flatus. Occasional underwear staining with gas passage. One prior episode of significant incontinence when he went to pass gas Chronic intermittent outlet type bleeding. Predates last colonoscopy. No melena. Appetite poor but weight slowly increasing. Ongoing issues with chronic back pain and kidney stones - increased stress with all of his medical issues. Prior history of regular NSAIDs but none recently. Using oral THC recently. No opioids. He had EGD and colonoscopy March 22, 2022. Mild chronic gastritis seen and he had an 8 mm tubulovillous adenoma, diverticulosis and internal hemorrhoids. Random colonic biopsies were negative. Negative biopsies and stomach esophagus and duodenum Current Regimen: Dicyclomine BID Imodium 2 mg OD Probiotics Magnesium for migraines Past Therapies: Amitriptyline poor tolerance Nortriptyline poor tolerance Pantoprazole brief trial Omeprazole brief trial Low FODMAP diet Zofran Review of systems: 14-point review of systems reviewed and negative except as above. Medications: Outpatient Medications Prior to Visit Medication Sig Dispense Refill ??? dicyclomine (Bentyl) 10 mg Capsule TAKE 2 CAPSULES BY MOUTH FOUR TIMES DAILY ??? Acidophilus-Pectin 75 million cell -100 mg Capsule Take 1 capsule by mouth daily. ??? loperamide (Imodium A-D) 2 mg Capsule TAKE 1 TABLET BY MOUTH EVERY 6 HOURS NEEDED FOR LOOSE STOOL ??? sertraline (ZOLOFT) 100 mg Tablet Take 200 mg by mouth daily. ??? levothyroxine (Synthroid) 50 mcg Tablet Take 50 mcg by mouth daily. ??? Prasterone, DHEA, (DHEA) 50 mg Capsule Take 100 mg by mouth. ??? acetaminophen (Tylenol) 325 mg Tablet Take 650 mg by mouth as needed. ??? cholecalciferol, Vitamin D3, 25 mcg (1,000 unit) Capsule Take 1 capsule by mouth daily. Takes 2capsules in Winter ??? SUMAtriptan (Imitrex) 50 mg Tablet Take 1 tablet by mouth as needed. ??? tamsulosin (Flomax) 0.4 mg Capsule Take 1 capsule by mouth daily. ??? lactobacillus combination no.8 3 billion cell Capsule Take by mouth daily. ??? MAGNESIUM ORAL Take 1 capsule by mouth daily. ??? VITAMIN B COMPLEX ORAL Take 1 tablet by mouth daily. ??? Levothyroxine (Tirosint) 50 mcg Capsule Take 1 capsule by mouth daily. ??? meloxicam (MOBIC) 7.5 mg Tablet Take one at hs for pain and inflammation. May increase to 2 at hs if needed. Do not exceed 2 tablets in 24 hours. 60 tablet 3 ??? albuteroL 90 mcg/actuation HFA Aerosol Inhaler Inhale into the lungs every 6 hours as needed. ??? nortriptyline (PAMELOR) 50 mg Capsule Take 1 capsule by mouth daily. ??? meclizine (Antivert) 25 mg Tablet Take 1 tablet by mouth as needed. ??? ondansetron (Zofran) 8 mg Tablet Take 1 tablet by mouth as needed. ??? POTASSIUM CITRATE-CITRIC ACID ORAL Take by mouth daily. No facility-administered medications prior to visit. Allergies: is allergic to erythromycin base and cigarette smoke. Past Medical History: has a past medical history of Chronic back pain, Hypothyroidism, Kidney stones, and Migraines. Past Surgical History: has a past surgical history that includes shoulder surgery and knee surgery. Family History: family history is not on file. denies family history of colon cancer, IBD, or celiac disease in mother father or other family members Social History: reports that he has never smoked. He has never used smokeless tobacco. He reports that he does not currently use alcohol. He reports current drug use. Drug: Marijuana. Physical exam: Constitutional: well appearing, no apparent distress Eyes: conjunctiva clear without icterus, pallor, or injection ENT: Nose without external redness or drainage. Mouth with normal dentition; moist mucous membranes CV: No lower extremity peripheral edema or signs of cyanosis Respiratory: Breathing comfortably and speaking in full sentences without evident tachypnea or signs of respiratory distress GI: Abdomen non-distended and non-tender to self-palpation Skin: No visible rashes Psych: Appropriate affect. Intact thought and speech Neuro: Alert and oriented. Moving upper extremities appropriately Questionnaire: 08/27/2022 Q-GI MOTILITY CLINIC [facility] Healthy Day Score 30 Work Absenteeism 0.17 Work Presenteeism 0.65 Multiple values from one day are sorted in reverse-chronological order Laboratory studies, imaging, and procedures (in summary [...] An additional follow-up appointment with a motility SVP DIGITAL AD SALES will be scheduled afterthis appointment to discuss specific recommendations for management. Patients should continue to work on general measures provided in our handout while awaiting this appointment. We also discussed the consultative nature of the [facility] GI motility program. The patient should continue to work with their PCP +/- local GI as the primary point(s) of contact for urgent issues, medication refills and adjustments as needed for continuity of care purposes in between visits to [facility] based on the recommendations above. Recommend PCP to refer to local GI if patient does not have a local GI currently. Yearly or bi-yearly visits with a member of the motility team may be available for co-management purposes depending upon the specific circumstances of the patient's medical condition. RTC with me in after testing completed The patient was located in [place] at the time of their visit. Paul Holman MD [facility] [place] [address] documented in this encounter Plan of Treatment Upcoming Encounters Date Type Department Care Team (Late st Contact Info) Description 05/05/2024 8:00 AM EST Office Visit Physical Therapy at [facility] [address] [place] [address] Kierra Moreno, PT [facility] PHYSICAL MEDICINE [place] [address] 05/05/2024 9:00 AM EST Office Visit Functional Jew Program at [facility] [address] [place] [address] Mireya Nicole, OT 05/19/2024 8:00 AM EST Office Visit Physical Therapy at [facility] [address] [place] [address] Kierra Moreno, PT [facility] PHYSICAL [place] [address] 06/02/2024 9:00 AM EST Office Visit Physical Therapy at [facility] [address] [place] [address] Kierra Moreno, PT [facility] PHYSICAL [facility] [address] Scheduled Orders Name Type Priority Associated Diagnoses Orde r Schedule High Definition Anal Manometry GI Routine Irritable Bowel Syndrome With Both Constipation And Diarrhea Expected: 08/27/2022 (Approximate), Expires: 02/26/2023 Breath Hydrogen Test GI Routine Irritable Bowel Syndrome With Both Constipation And Diarrhea Expected: 08/27/2022 (Approximate), Expires: 02/26/2023 documented as of this encounter Results * MRI Enterography wwo [...] who have questions please contact the health nurse behavioral health care that requested your imaging first. ? Electronically signed by: Som Waldrop MD, [facility] ([phone]), at 11/09/2022 8:25 AM Narrative 11/09/2022 8:25 [...] patients who have questions please contactthe health nurse behavioral health care that requested your imaging first. Electronically signed by: Som Waldrop MD, [facility]([phone]), at 11/09/2022 8:25 AM Paul Holman MD [facility] MRI ORDERABLES * Tissue transglutaminase, IgA (11/08/2022 9:24 AM EDT) TTG IgA Ab 0.7 <=10.0 u/ml [facility] Comment: Negative: ??<7 units/mL Indeterminate: 7-10 units/mL Positive: ??>10 units/mL Blood 11/08/2022 9:24 AM EDT 11/08/2022 10:42 AM EDT Narrative Resulting Agency Comment Spec In Lab Paul Holman MD IMMUNOLOGY ORDERABLE S [facility] [place] [address] * IgG (11/08/2022 9:24 AM EDT) Immunoglobulin G 1,297 700 - 1,600 mg/dL [facility] Comment: Pediatric Reference Intervals obtained from the Caliper Reference Interval project. http://www.Iker[employer].ca/caliperproject/index.html Blood 11/08/2022 9:24 AM EDT 11/08/2022 9:31 AM EDT Narrative Resulting Agency Comment Spec In Lab Paul Holman MD CHEMISTRY ORDERABLES Performing Organization Address City/[facility]/ZIP Co de Phone Number [facility] [place] [address] * IgA (11/08/2022 9:24 AM EDT) Pathologist [facility] IgA 330 70 - 400 mg/dL [facility] Blood 11/08/2022 9:24 AM EDT 11/08/2022 9:31 AM EDT Narrative Resulting Agency Comment Spec In Lab Paul Holman MD CHEMISTRY ORDERABLES [facility] [place] [address] * TSH Creole (11/08/2022 9:24 AM EDT) Thyroid Stimulating Hormone 2.04 0.27 - 4.20 mcIU/mL [facility] Comment: Reference Interval (mcIU/mL): Females: ??First Trimester: 0.23-3.88 ??Second Trimester: 0.22-3.90 ??Third Trimester: 0.44-4.66 Blood 11/08/2022 9:24 AM EDT 11/08/2022 9:31 AM EDT Narrative Resulting Agency Comment Spec In Lab Paul Holman MD CHEMISTRY ORDERABLES [facility] [place] [address] * NM Gastric Emptying Scan (09/13/2022 1:09 [...] who have questions please contact the health nurse behavioral health care that requested your imaging first. ? Electronically signed by: Huey Thompson MD, [facility] ([phone]), at 09/13/2022 3:34 PM Narrative 09/13/2022 3:34 [...] patients who have questions please contactthe health nurse behavioral health care that requested your imaging first. Electronically signed by: Huey Thompson MD, [facility]([phone]), at 09/13/2022 3:34 PM Paul Holman MD IMG NM ORDERABLES documented in this encounter Visit Diagnoses Diagnosis Irritable bowel syndrome with both constipation and diarrhea Functional dyspepsia Dyspepsia and other specified disorders of function of stomach Gastroesophageal reflux disease, unspecified whether esophagitis present Functional dyspepsia Dyspepsia and other specified disorders of function of stomach Irritable bowel syndrome with both constipation and diarrhea documented in this encounter Care Teams Playground Equipment Erector Relationship Specialty Start Date End Date Romeo Corbin MD [address] [place] [address] PCP - General 09/23/14 05/26/23 documented as of this encounter
--- OUTSIDE RECORDS SUMMARY | 2024-03-25 14:01 | XMS_ITS | Encounter Summary ---
Author Organization [facility] [place] [address] Care Team Providers Care Agricultural Service Worker Name Role Phone Romeo Corbin MD Primary Care Provider [phone] Reason for Visit * - Closed Specialty Diagnoses / Procedures Referred By Arabella t Referred To Contact Procedures Film Library- Storage Only DX Abdomen Romeo Corbin MD [address] [place] [address] Referral ID Status Reason Start Date Expiration Date Visits Re quested Visits Authorized [id number] Closed 10/31/2020 10/31/2021 1 1 Encounter Details Date Type Department Care Team (Late st Contact Info) Description 07/29/2020 Ancillary Procedure Radiology Library at [facility] [place] [phone] Romeo Corbin MD [address] [place] [address] Social History Tobacco Use Types [...] AM EST Office Visit Physical Therapy at [facility] [address] [place] [address] Kierra Moreno, PT [facility] PHYSICAL MEDICINE & [place] [address] 05/05/2024 9:00 AM EST Office Visit Functional Advent Program at [facility] [address] [place] [address] Mireya Nicole, OT 05/19/2024 8:00 AM EST Office Visit Physical Therapy at [facility] [address] [place] [address] Kierra Moreno, PT [facility] PHYSICAL MEDICINE [place] [address] 06/02/2024 9:00 AM EST Office Visit Physical Therapy at [facility] [address] [place] [address] Kierra Moreno, PT [facility] PHYSICAL MEDICINE & [place] [address] documented as of this encounter Procedures Procedure Name Priority Date/Time Associated Diagnosis Comments FILM LIBRARY STORAGE ONLY DX ABDOMEN Routine 07/29/2020 12:00 AM EST documented in this encounter Results * Film Library- Storage Only DX Abdomen (07/29/2020 12:00 AM EST) Narrative [facility] - 10/31/2020 9:52 AM EDT This exam is auto-finalizing. It's purpose is for storage only. Romeo Corbin MD G FILM LIBRARY ORD ERABLES [place], [place] documented in this encounter Visit Diagnoses Not on filedocumented in this encounter Care Teams Agricultural Service Worker Relationship Specialty Start Date End Date Romeo Corbin MD [address] [place] [address] PCP - General 09/23/14 05/26/23 documented as of this encounter
--- OUTSIDE RECORDS SUMMARY | 2024-03-25 14:01 | XMS_ITS | Encounter Summary ---
Author Organization Formerly [facility] [place] [address] Care Team Providers Care Special Events Fundraiser Name Role Phone Romeo Corbin MD Primary Care Provider [phone] Reason for Visit * - Closed Specialty Diagnoses / Procedures Referred By Arabella t Referred To Contact Procedures Film Library- Storage Only DX Abdomen Romeo Corbin MD [address] [place] [address] Referral ID Status Reason Start Date Expiration Date Visits Re quested Visits Authorized [id number] Closed 10/31/2020 10/31/2021 1 1 Encounter Details Date Type Department Care Team (Late st Contact Info) Description 07/20/2020 Ancillary Procedure Radiology Library at [facility] [place] [address] Romeo Corbin MD [address] [place] [address] Social History Tobacco Use Types [...] Therapy at [facility] [address] [place] [address] Kierra Moreno, PT [facility] PHYSICAL MEDICINE & [place] [address] 05/05/2024 9:00 AM EST Office Visit Functional Sabianist Program at [facility] [address] [place] [address] Mireya Nicole, OT 05/19/2024 8:00 AM EST Office Visit Physical Therapy at [facility] [address] [place] [address] Kierra Moreno, PT [facility] PHYSICAL MEDICINE & [place] [address] 06/02/2024 9:00 AM EST Office Visit Physical Therapy at [facility] [address] [facility] [place] [address] Kierra Moreno, PT [facility] PHYSICAL MEDICINE & [place] [address] documented as of this encounter Procedures Procedure Name Priority Date/Time Associated Diagnosis Comments FILM LIBRARY STORAGE ONLY DX ABDOMEN Routine 07/20/2020 12:00 AM EST documented in this encounter Results * Film Library- Storage Only DX Abdomen (07/20/2020 12:00 AM EST) Narrative [facility] - 10/31/2020 9:49 AM EDT This exam is auto-finalizing. It's purpose is for storage only. Romeo Corbin MD G FILM LIBRARY ORD ERABLES [place], [place] documented in this encounter Visit Diagnoses Not on filedocumented in this encounter Care Teams Special Events Fundraiser Relationship Specialty Start Date End Date Romeo Corbin MD [address] [place] [address] PCP - General 09/23/14 05/26/23 documented as of this encounter
--- OUTSIDE RECORDS SUMMARY | 2024-03-25 14:01 | XMS_ITS | Encounter Summary ---
Author Organization [facility] [place] [address] Care Team Providers Care Automotive Refinisher Name Role Phone Romeo Corbin MD Primary Care Provider [phone] Reason for Visit * Diagnostic Test (Routine) - Closed Specialty Diagnoses / Procedures Referred By Conteric t Referred To Contact Radiology Diagnoses Functional dyspepsia Procedures NM Gastric Emptying Scan Paul Holman MD [facility] [place] [address] [place] [address] Referral ID Status Reason Start Date Expiration Date V isits Requested Visits Authorized [id number] Closed Specialty Service Requested 08/27/2022 02/28/2024 1 1 Encounter Details Date Type Department Care Team (Latest Contact Info) Description 09/13/2022 9:45 AM EDT Hospital En[place] [phone] Paul Holman MD [facility] [place] [address] Discharge Disposition: Home Social History [...] Upcoming Encounters Date Type Department Care Team (Keiry st Contact Info) Description 05/05/2024 8:00 AM EST Office Visit Physical Therapy at [facility] [address] [place] [address] Kierra Moreno, PT [facility] PHYSICAL MEDICINE & [place] [address] 05/05/2024 9:00 AM EST Office Visit Functional Baptism Program at [facility] [address] [place] [address] Mireya Nicole, OT 05/19/2024 8:00 AM EST Office Visit Physical Therapy at [facility] [address] [place] [address] Kierra Moreno, PT [facility] PHYSICAL MEDICINE & [place] [address] 06/02/2024 9:00 AM EST Office Visit Physical Therapy at [facility] [address] [place] [address] Kierra Moreno, PT [facility] PHYSICAL MEDICINE [place] [address] documented as of this encounter Procedures Procedure [...] who have questions please contact the health healthcare translator that requested your imaging first. ? Electronically signed by: Huey Thompson MD, [facility] ([phone]), at 09/13/2022 3:34 PM Narrative 09/13/2022 3:34 [...] patients who have questions please contactthe health healthcare translator that requested your imaging first. Electronically signed by: Huey Thompson MD, [facility]([phone]), at 09/13/2022 3:34 PM Paul Holman MD IMG NM ORDERABLES documented in this encounter Visit Diagnoses Not on filedocumented in this encounter Care Teams Automotive Refinisher Relationship Specialty Start Date End Date Romeo Corbin MD [address] [place] [address] PCP - General 09/23/14 05/26/23 documented as of this encounter
--- OUTSIDE RECORDS SUMMARY | 2024-03-25 14:01 | XMS_ITS | Encounter Summary ---
Author Organization Formerly [facility] [place] [address] Care Team Providers Care President Educational Institution Name Role Phone Romeo Corbin MD Primary Care Provider [phone] Encounter Details Date Type Department Care Team (Late st Contact Info) Description 10/04/2022 Telephone [facility] [place] [address] Edelmira Ren RN Social History Tobacco Use Types Packs/Day [...] encounter Miscellaneous Notes * Telephone Encounter - Edelmira Ren RN - 10/04/2022 10:42 AM EDT Pt called and left VM asking whether he needed to have a local company refrigerated truck driver for the procedure. Outgoing call to pt - left VM notifying pt that he does need to have a local company refrigerated truck driver for the procedure. Arrival time 3pm to 3D. Left callback number for pt to call for any additional questions or concerns. documented in this encounter Plan of Treatment Upcoming Encounters Date Type Department Care Team (Late st Contact Info) Description 05/05/2024 8:00 AM EST Office Visit Physical Therapy at [facility] [address] [place] [phone] Kierra Moreno, PT [facility] PHYSICAL MEDICINE [place] [address] 05/05/2024 9:00 AM EST Office Visit Functional Yarsani Program at [facility] [address] [facility] [place] [address] Mireya Nicole, OT 05/19/2024 8:00 AM EST Office Visit Physical Therapy at [facility] [address] [place] [address] Kierra Moreno, PT [facility] PHYSICAL MEDICINE [place] [address] 06/02/2024 9:00 AM EST Office Visit Physical Therapy at [facility] [address] [place] [address] Kierra Moreno, PT [facility] PHYSICAL MEDICINE [place] [address] documented as of this encounter Visit Diagnoses Not on filedocumented in this encounter Care Teams President Educational Institution Relationship Specialty Start Date End Date Romeo Corbin MD [address] [place] [address] PCP - General 09/23/14 05/26/23 documented as of this encounter
--- OUTSIDE RECORDS SUMMARY | 2024-03-25 14:01 | XMS_ITS | Encounter Summary ---
Author Organization [facility] [place] [address] Care Team Providers Care Survey Chief Name Role Phone Romeo Corbin MD Primary Care Provider [phone] Reason for Visit * Reason Onset Date Comments fall01/11/2021 Encounter Details Date Type Department Care Team (Late st Contact Info) Description 01/11/2021 Telephone [place] [phone] Taniya Rhodes RN Fall Social History Tobacco Use Types Packs/Day Years Used Date Smoking Tobacco: Never Smokeless Tobacco: Never Sex and Gender Information Value Date Recorded Sex Assigned at Not on file Gender Identity Not on file Sexual Orientation Not on file documented as of this encounter Miscellaneous Notes * Telephone Encounter - Taniya Rhodes RN - 01/11/2021 9:55 AM EDT Mr Judge calls today with report of increase back pain after he missed a step at a clients houseand tweaked his back. Mr Judge reports that his place of Employment ([employer]) is asking for a note that says he can go back to work after this injury. Ms Willy's states that she can not write a note placing him back to work, when she has not assessed this patient for this back injury. He was instructed to call his PCP, to be evaluated as to whether he can work. Patient expresses understanding. documented in this encounter Plan of Treatment Upcoming Encounters Date Type Department Care Team (Late st Contact Info) Description 05/05/2024 8:00 AM EST Office Visit Physical Therapy at [facility] [address] [place] [address] Kierra Moreno, PT [facility] PHYSICAL MEDICINE & [place] [address] 05/05/2024 9:00 AM EST Office Visit Functional Sikhism Program at [facility] [address] [place] [address] Mireya Nicole, OT 05/19/2024 8:00 AM EST Office Visit Physical Therapy at [facility] [address] [place] [address] Kierra Moreno, PT [facility] PHYSICAL MEDICINE & [place] [address] 06/02/2024 9:00 AM EST Office Visit Physical Therapy at [facility] [address] [place] [address] Kierra Moreno, PT [facility] PHYSICAL MEDICINE & [place] [address] documented as of this encounter Visit Diagnoses Not on filedocumented in this encounter Care Teams Survey Chief Relationship Specialty Start Date End Date Romeo Corbin MD [address] [place] [address] PCP - General 09/23/14 05/26/23 documented as of this encounter
--- OUTSIDE RECORDS SUMMARY | 2024-03-25 14:01 | XMS_ITS | Encounter Summary ---
Author Organization [facility] Address [facility] [place] [address] Care Team Providers Care Waterworks Pump Station Operator Name Role Phone Romeo Corbin MD Primary Care Provider [phone] Reason for Visit * Diagnostic Test (Routine) - Closed Specialty Diagnoses / Procedures Referred By Conteric t Referred To Contact Radiology Diagnoses Functional dyspepsia Procedures NM Gastric Emptying Scan Paul Holman MD [facility] [place] [address] [place] [address] Referral ID Status Reason Start Date Expiration Date V isits Requested Visits Authorized [id number] Closed Specialty Service Requested 08/27/2022 02/28/2024 1 1 Encounter Details Date Type Department Care Team (Latest Contact Info) Description 09/13/2022 9:46 AM EDT - 09/13/2022 11:59 PM EDT Hospital Encounter [place] [address] Paul Holman MD [facility] [place] [address] Discharge Disposition: Home Social History [...] AM EST Office Visit Physical Therapy at [facility] [address] [place] [address] Kierra Moreno, PT [facility] PHYSICAL MEDICINE & [place] [address] 05/05/2024 9:00 AM EST Office Visit Functional Mormonism Program at [facility] [address] [place] [address] Mireya Nicole, OT 05/19/2024 8:00 AM EST Office Visit Physical Therapy at [facility] [address] [place] [address] Kierra Moreno, PT [facility] PHYSICAL MEDICINE & [place] [address] 06/02/2024 9:00 AM EST Office Visit Physical Therapy at [facility] [address] [place] [address] Kierra Moreno, PT [facility] PHYSICAL MEDICINE & [place] [address] documented as of this encounter Procedures Procedure [...] who have questions please contact the health critical care cns that requested your imaging first. ? Electronically signed by: Huey Thompson MD, [facility] ([phone]), at 09/13/2022 3:34 PM Narrative 09/13/2022 3:34 [...] patients who have questions please contactthe health critical care cns that requested your imaging first. Electronically signed by: Huey Thompson MD, [facility]([phone]), at 09/13/2022 3:34 PM Paul Holman MD IMG NM ORDERABLES documented in this encounter Visit Diagnoses Not on filedocumented in this encounter Care Teams Waterworks Pump Station Operator Relationship Specialty Start Date End Date Romeo Corbin MD [address] [place] [address] PCP - General 09/23/14 05/26/23 documented as of this encounter
--- OUTSIDE RECORDS SUMMARY | 2024-03-25 14:01 | XMS_ITS | Encounter Summary ---
Author Organization [facility] Address [facility] [place] [address] Care Team Providers Care Electrician Research Name Role Phone Romeo Corbin MD Primary Care Provider [phone] Encounter Details Date Type Department Care Team (Latest Contact Info) Description 09/13/2022 Travel Social History Tobacco Use Types Packs/Day [...] AM EST Office Visit Physical Therapy at [facility] [address] [place] [address] Kierra Moreno, PT [facility] PHYSICAL MEDICINE & [place] [address] 05/05/2024 9:00 AM EST Office Visit Functional Scientology Program at [facility] [address] [place] [address] Mireya Nicole, OT 05/19/2024 8:00 AM EST Office Visit Physical Therapy at [facility] [address] [place] [address] Kierra Moreno, PT [facility] PHYSICAL MEDICINE & [place] [address] 06/02/2024 9:00 AM EST Office Visit Physical Therapy at [address] [place] [address] Kierra Moreno, PT [facility] PHYSICAL MEDICINE & [place] [address] documented as of this encounter Visit Diagnoses Not on filedocumented in this encounter Care Teams Electrician Research Relationship Specialty Start Date End Date Romeo Corbin MD [address] [place] [address] PCP - General 09/23/14 05/26/23 documented as of this encounter
--- OUTSIDE RECORDS SUMMARY | 2024-03-25 14:01 | XMS_ITS | Encounter Summary ---
Author Organization [facility] Address [facility] [place] [address] Care Team Providers Care Shingle Trimmer Name Role Phone Romeo Corbin MD Primary Care Provider [phone] Encounter Details Date Type Department Care Team (Late st Contact Info) Description 09/09/2015 - 09/09/2015 11:59 PM EDT Hospital Encounter Radiology Library at [facility] [place] [phone] [facility] Disposition: Home Social History Tobacco Use Types Packs/Day Years Used Date Smoking Tobacco: Never Smokeless Tobacco: Never Sex and Gender Information Value Date Recorded Sex Assigned at Not on file Gender Identity Not on file Sexual Orientation Not on file documented as of this encounter Medications at Time of Discharge Medication Sig Dispensed Refills Start Date End Date cholecalciferol, Vitamin D3, 25 mcg (1,000 unit) Capsule Take 1 capsule by mouth daily. Takes 2 capsules in winter09/09/2015 meclizine (Antivert) 25 mg Tablet Take 1 tablet by mouth as needed. 10/04/2014 04/12/2023 omeprazole (PRILOSEC) 20 mg Capsule, Delayed Release(E.C.) Take 20 mg by mouth daily. 12/29/2020 documented as of this encounter Plan of Treatment Upcoming Encounters Date Type Department Care Team (Late st Contact Info) Description 05/05/2024 8:00 AM EST Office Visit Physical Therapy at [facility] [address] [place] [address] Kierra Moreno, PT [facility] PHYSICAL MEDICINE & [place] [address] 05/05/2024 9:00 AM EST Office Visit Functional Congregational Program at [facility] [address] [place] [address] Mireya Nicole OT 05/19/2024 8:00 AM EST Office Visit Physical Therapy at [facility] [address] [place] [address] Kierra Moreno, PT [facility] PHYSICAL MEDICINE [place] [address] 06/02/2024 9:00 AM EST Office Visit Physical Therapy at [facility] [address] [place] [address] Kierra Moreno, PT [facility] PHYSICAL MEDICINE [place] [address] documented as of this encounter Procedures Procedure Name Priority Date/Time Associated Diagnosis Comments FILM LIBRARY STORAGE ONLY CT ABDOMEN AND PELVIS Routine 09/09/2015 12:00 AM EDT Pain documented in this encounter Results * Film Library- Storage Only CT Abdomen & Pelvis (09/09/2015 12:00 AM EDT) Narrative [facility] - 10/06/2015 12:33 PM EDT This exam is for storage only and is auto-finalizing. Dr Aragon [facility] FILM LIBRARY ORD ERABLES Performing Organization Address City/State/[facility] Co de Phone Number [place], [place] documented in this encounter Visit Diagnoses Diagnosis Pain Generalized pain documented in this encounter Care Teams Shingle Trimmer Relationship Specialty Start Date End Date Romeo Corbin MD [address] [place] [address] PCP - General 09/23/14 05/26/23 documented as of this encounter
--- OUTSIDE RECORDS SUMMARY | 2024-03-25 14:01 | XMS_ITS | Encounter Summary ---
Author Organization [facility] Address [address] [place] [address] Care Team Providers Care Manufacturing Business Analyst Name Role Phone Unavailable Primary Care Provider Unavailabl e Encounter Details Date Type Department Care Team (Late st Contact Info) Description 03/23/2022 Lab Requisition [facility] - [facility] [place] [address] [place] [id number] Ernesto Foote MD [address] [place] [phone] Encounter for screening for malignant neoplasm of colon; Nausea with vomiting, unspecified Social History Tobacco Use Types Packs/Day Years Used Date Smoking Tobacco: Never Assessed Sex and Gender Information Value Date Recorded Sex Assigned at Not on file Gender Identity Not on file Sexual Orientation Not on file documented as of this encounter Plan of Treatment Not on file documented as of this encounter Procedures Procedure Name Priority Date/Time Associated Diagnosis Comments SURGICAL PATHOLOGY Today 03/22/2022 12 :47 EDT documented in this encounter Results * SURGICAL PATHOLOGY (03/22/2022 12:47 EDT) Note to Patient The following pathology results have been interpreted by your pathologist and may be available to you before your health provider has had the opportunity to review them. Please allow time for your provider to receive these results and explore management options, if applicable. 03/26/2022 10:56 EDT [facility] Final Diagnosis A. DUODENUM, BIOPSY: - Duodenal mucosa with patchy peptic change and no other significant histopathologic abnormalities. B. DUODENAL BULB, BIOPSY: - Duodenal mucosa with patchy peptic change and no other significant histopathologic abnormalities. C. GASTRIC ANTRUM, BIOPSY: - Fragments of body type mucosa with patchy, mild chronic gastritis. - No Helicobacter-like microorganisms identified on routine stained sections. D. GASTRIC BODY, BIOPSY: - Fragments of body type mucosa with no significant histopathologic abnormalities. - No Helicobacter-like microorganisms identified on routine stained sections. E. DISTAL ESOPHAGUS, BIOPSY: - Unremarkable squamous mucosa. - No significant eosinophilic inflammation identified. F. MID ESOPHAGUS, BIOPSY: - Unremarkable squamous mucosa. - No significant eosinophilic inflammation identified. G. COLON, CECUM, POLYP: - Fragments of tubulovillous adenoma. H. COLON, RANDOM, BIOPSIES: - Fragments of unremarkable colonic mucosa. 03/26/2022 10:56 [facility] Attestation By the signature below, the attending physician certifies that they have 1) personally conducted a gross and/or microscopic examination of the described specimen(s), and/or personally interpreted the results of laboratory testing of the described specimen(s), and 2) personally rendered or confirmed the above diagnosis. 03/26/2022 10:56 [facility] at 1056 Clinical History screening, unintentional wt loss, nausea + vomiting, change in bowel habots 03/26/2022 10:56 [facility] Gross Description A. The specimen is received in formalin labeled with ? Som Judge? and ? A? and ? duodenum Bx? are 2 mucosal fragments that measure 0.1 x 0.2 x 0.2 cm and 0.1 x 0.2 x 0.3 cm. The specimen is entirely submitted in 1 cassette. B. The specimen is received in formalin labeled with ? Som Shawn? and ? B? and ? duodenal bulb Bx? are 2 mucosal fragments that measure 0.1 x 0.1 x 0.2 cm and 0.1 x 0.2 x 0.5 cm. The specimen is entirely submitted in 1 cassette. C. The specimen is received in formalin labeled with ? Som Shawn? and ? C? and ? antrum Bx? are 2 mucosal fragments that measure 0.1 x 0.1 x 0.2 cm and 0.2 x 0.2 x 0.2 cm. The specimen is entirely submitted in 1 cassette. D. The specimen is received in formalin labeled with ? Som Shawn? and ? D? and ? gastric body [...] received in formalin labeled with ? Som Hardy. Nu? and ? F? and ? mid esophagus Bx? are 3 mucosal fragments that range in size from 0.1 x 0.1 x 0.1 cm up to 0.1 x 0.2 x 0.3 cm. The specimen is entirely submitted in 1 cassette. G. The specimen is received in formalin labeled with ? Som Shawn? and ? G? and ? cecal polyp? are 13 mucosal fragments that range in size from 0.1 x 0.2 x 0.2 cm up to 0.4 x 0.5 x 1.5 cm. The mucosal fragments are submitted in cassettes G1 through G3. Submitted in cassette G4 is an estimated 0.1 cc aggregate of apparent digestive material and possible mucosal fragments, filtered. The specimen is entirely submitted in 4 cassettes. H. The specimen is received in formalin labeled with ? Som Judge? and ? H? and ? random colon Bx? are 4 mucosal fragments that range in size from 0.1 x 0.1 x 0.1 cm up to 0.1 x 0.1 x 0.6 cm. The specimen is entirely submitted in 1 cassette. Jacqueline Gtz 03/23/2022 12:07 03/26/2022 10:56 [facility] Performing Lab [facility] 03/2022 10:56 [facility] Scanned Images 03/26/2022 10:56 [facility] Tissue ENTIRE COLON / Unknown 03/22/2022 12:47 EDT 03/23/2022 9:51 EDT Tissue specimen (specimen) DUODENAL AMPULLA STRUCTURE / Unknown 03/22/2022 12:47 EDT 03/23/2022 9:51 EDT Tissue specimen (specimen) PYLORIC ANTRUM STRUCTURE / Unknown 03/22/2022 12:47 EDT 03/23/2022 9:51 EDT Tissue specimen (specimen) GASTRIC CORPUS STRUCTURE / Unknown 03/22/2022 12:47 EDT 03/23/2022 9:51 EDT Tissue specimen (specimen) ESOPHAGEAL STRUCTURE / Unknown 03/22/2022 12:47 EDT 03/23/2022 9:51 EDT Tissue specimen (specimen) ESOPHAGEAL STRUCTURE / Unknown 03/22/2022 12:47 EDT 03/23/2022 9:51 EDT Tissue specimen (specimen) CECUM STRUCTURE / Unknown 03/22/2022 12:47 EDT 03/23/2022 9:51 EDT Tissue specimen (specimen) COLON STRUCTURE / Unknown 03/22/2022 12:47 EDT 03/23/2022 9:51 EDT Ernesto Foote MD PATHOLOGY ORD ERABLES [facility] [address] [place] [address] documented in this encounter Visit Diagnoses Diagnosis Encounter for screening for malignant neoplasm of colon Special screening for malignant neoplasms, colon Nausea with vomiting, unspecified documented in this encounter
--- OUTSIDE RECORDS SUMMARY | 2024-03-25 14:01 | XMS_ITS | Encounter Summary ---
Author Organization Formerly [facility] [place] [address] Care Team Providers Care Show Operations Supervisor Name Role Phone Romeo Corbin MD Primary Care Provider [phone] Encounter Details Date Type Department Care Team (Latest Contact Info) Description 01/27/2021 3:30 PM EDT TH Visit (TeleHealth) [facility] [place] [address] Lacey Gleason PRESCHOOL TEACHER AIDE [facility] [place] [address] Radiculopathy of lumbar region Social History Tobacco Use Types Packs/Day Years Used Date Smoking Tobacco: Never Smokeless Tobacco: Never Sex and Gender Information Value Date Recorded Sex Assigned at Not on file Gender Identity Not on file Sexual Orientation Not on file documented as of this encounter Progress Notes * Lacey Gleason APRN - 01/27/2021 3:30 PM EDT [facility] [place] [address] Phone: PAIN MANAGEMENT TELEPHONE VISIT NOTE DATE OF VISIT 01/27/2021 Patient Som Judge 1970 REFERRING PROVIDER Kaushik Mccauley APRN [address] [place] [address] PRIMARY CARE PROVIDER Romeo Corbin MD [X] [...] RIGHT identified. Conus not included in the [id number], probably terminating at the level of T12. [...] in 24 hours sent by erx to [facility] [employer] in [place].. If having frequent exacerbations, will consider therapeutic injection. Based on his current symptoms would consider an interlaminar at [facility] L4-5 L>. [...] 25 minutes by telephone. Lacey Gleason, MSN, PRESCHOOL TEACHER AIDE [facility] [place] [address] / documented in this encounter Plan of Treatment Upcoming Encounters Date Type Department Care Team (Late st Contact Info) Description 05/05/2024 8:00 AM EST Office Visit Physical Therapy at [facility] [address] [place] [address] Kierra Moreno, PT [facility] PHYSICAL MEDIC[facility] & [place] [address] 05/05/2024 9:00 AM EST Office Visit Functional Quaker Program at [facility] [address] [place] [address] Mireya Nicole, OT 05/19/2024 8:00 AM EST Office Visit Physical Therapy at [facility] [address] [place] [address] Kierra Moreno, PT [facility] PHYSICAL BENY & [place] [address] 06/02/2024 9:00 AM EST Office Visit Physical Therapy at [facility] [address] [place] [address] Kierra Moreno, PT [facility] PHYSICAL BENY & [place] [address] documented as of this encounter Visit Diagnoses Diagnosis Radiculopathy of lumbar region Thoracic or lumbosacral neuritis or radiculitis, unspecified documented in this encounter Care Teams Show Operations Supervisor Relationship Specialty Start Date End Date Romeo Corbin MD [address] [place] [address] PCP - General 09/23/14 05/26/23 documented as of this encounter
--- OUTSIDE RECORDS SUMMARY | 2024-03-25 14:01 | XMS_ITS | Referral Summary ---
Author Organization [facility] Address [address] [place] [address] Care Team Providers Care Mold Shifter Name Role Phone Unavailable Primary Care Provider Unavailabl e Allergies No known active allergies Medications No known medications Active Problems No known active problems Social History Tobacco Use Types Packs/Day Years Used Date Smoking Tobacco: Never Assessed Sex and Gender Information Value Date Recorded Sex Assigned at Not on file Gender Identity Not on file Sexual Orientation Not on file Plan of Treatment Not on file Som Judge Personal/Family Self 1970 [address] [place] [address] Som Judge Personal/Family Self 1970 [address] [place] [address] Som Judge Personal/Family Self 1970 [address] [place] [address] Som Judge Personal/Family Self 1970 [address] [place] [address] Som Judge Personal/Family Self 1970 [address] [place] [address]
--- OUTSIDE RECORDS SUMMARY | 2024-03-25 14:01 | XMS_ITS | Encounter Summary ---
Author Organization Formerly [facility] [place] [address] Care Team Providers Care Pharmacy Sales Representative Name Role Phone Romeo Corbin MD Primary Care Provider [phone] Reason for Visit * - Closed Specialty Diagnoses / Procedures Referred By Arabella kirby Referred To Contact Procedures Film Library- Storage Only Ultrasound Study Romeo Corbin MD [address] [place] [address] Referral ID Status Reason Start Date Expiration Date Visits Re quested Visits Authorized [id number] Closed 10/31/2020 10/31/2021 1 1 Encounter Details Date Type Department Care Team (Late st Contact Info) Description 08/30/2020 Ancillary Procedure Radiology Library at [facility] [place] [address] Romeo Corbin MD [address] [place] [address] Social History Tobacco Use Types [...] [facility] [address] [place] [address] Kierra Moreno, PT [facility] PHYSICAL MEDICINE & [place] [address] 05/05/2024 9:00 AM EST Office Visit Functional Scientologist Program at [facility] [address] [place] [address] Mireya Nicole, OT 05/19/2024 8:00 AM EST Office Visit Physical Therapy at [facility] [address] [place] [address] Kierra Moreno, PT [facility] PHYSICAL MEDICINE [place] [address] 06/02/2024 9:00 AM EST Office Visit Physical Therapy at [facility] [address] [place] [address] Kierra Moreno, PT [facility] PHYSICAL MEDICINE & [place] [address] documented as of this encounter Procedures Procedure Name Priority Date/Time Associated Diagnosis Comments FILM LIBRARY STORAGE ONLY ULTRASOUND STUDY Routine 08/30/2020 12:00 AM EDT documented in this encounter Results * Film Library- Storage Only Ultrasound Study (08/30/2020 12:00 AM EDT) Narrative [facility] - 10/31/2020 9:52 AM EDT This exam is auto-finalizing. It's purpose is for storage only. Romeo Corbin MD G FILM LIBRARY ORD ERABLES [place], [place] documented in this encounter Visit Diagnoses Not on filedocumented in this encounter Care Teams Pharmacy Sales Representative Relationship Specialty Start Date End Date Romeo Corbin MD [address] [place] [address] PCP - General 09/23/14 05/26/23 documented as of this encounter
--- OUTSIDE RECORDS SUMMARY | 2024-03-25 14:01 | XMS_ITS | Encounter Summary ---
Author Organization [facility] Address [facility] [place] [address] Care Team Providers Care Oven Operator Automatic Name Role Phone Romeo Corbin MD Primary Care Provider [phone] Reason for Visit * Reason Comments Testicular Pain Encounter Details Date Type Department Care Team (Late st Contact Info) Description 11/15/2014 9:00 AM EDT [place] [id number] Coby Schroeder MD [facility] [place] [address] Testicular pain, right; Microscopic hematuria Discharge Disposition: Home Social History Tobacco Use [...] documented in this encounter Progress Notes * Coby Schroeder MD - 11/15/2014 9:37 AM EDT UROLOGY NEW PATIENT VISIT CC: right testicular pain HPI: 44 yo male who has had a chronic intermittent right testicular pain for at least one year. He states that he underwent a procedure done about 9 years ago at [facility] for urethral stricture, and his stream is good. He has intermittent daytime frequency, and sometimes sensation of incomplete emptying. Hehas had microscopic hematuria for many years, but no workup. He denies any gross hematuria or dysuri a. He also states that he has had lack of energy for at least 6 months. He does not smoke. PMH/PSH: urethral stricture procedure, nephrolithiasis, EtOH/drug abuse SH: He does not smoke or drink. FH: negative for related cancers. Father had melanoma and sister ROS: General Health: GENERAL: Denies fevers, sweats, chills, anorexia, denies weight changes. 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 [...] concerns. documented in this encounter Miscellaneous Notes * Addendum Note - Stacy Thibodeaux LPN - 11/15/2014 10:27 AM EDTAddended by: STACY THIBODEAUX on: 11/15/2014 10:27 AM Modules accepted: Orders documented in this encounter Plan of Treatment Upcoming Encounters Date Type Department Care Team (Late st Contact Info) Description 05/05/2024 8:00 AM EST Office Visit Physical Therapy at [facility] [address] [place] [address] Kierra Moreno, PT [facility] PHYSICAL MEDICINE & [place] [address] 05/05/2024 9:00 AM EST Office Visit Functional Taoist Program at [facility] [address] [place] [address] Mireya Nicole, OT 05/19/2024 8:00 AM EST Office Visit Physical Therapy at [facility] [address] [place] [address] Kierra Moreno, PT [facility] [address] [place] [address] 06/02/2024 9:00 AM EST Office Visit Physical Therapy at [facility] [address] [place] [address] Kierra Moreno, PT [facility] PHYSICAL [address] [place] [address] documented as of this encounter Procedures Procedure Name Priority Date/Time Associated Diagnosis Comments NON-INVESTMENT COUNSELOR FINAL REPORT Routine 11/15/2014 10:27 AM EDT URINALYSIS WITH REFLEX CULTURE Routine 11/15/2014 10:27 AM EDT Microscopic hematuria CYTOPATHOLOGY NON-GYNECOLOGICAL Routine 11/15/2014 10:27 AM EDT Microscopic hematuria documented in this encounter Results * Non-Youth Program Director Final Report (11/15/2014 10:27 AM EDT) Diagnosis Discussion ? [facility] ? Provider: ?? COBY SCHROEDER Pt. Name: ?? CLAUDETTE JUDGE ? Acc #: ?[id number] ?Pt. ? Col Date: ?? 11/15/2014 ?/Sex: ?1970,(44 years),Male ? Rec Date: ?? 11/15/2014 ?LOC: ?5B ? CYTOPATHOLOGY: ??NGYN ? ---Cytopathologi c Diagnosis--- ? Negative for Malignancy ? 11/16/14 ?Screened by: ? LMY ? Rescreened by: ?? CHIP APPLYING MACHINE TENDER ? 11/16/14 ?Verified by: ? JOHN MUNIZ MD ?Pathologist ?(Electronic Signature) ? ---Comment--- ? Urine, Voided: ??Urothelial cells, squamous cells, red blood cells, and ? crystals are present. ? ---Clinical Information--- ? Specimen Source: ?Urine, Voided ? Pertinent Clinical Data and Significant Therapy: ?Microscopic hematuria ? Clinical Impression: ?Microscopic hematuria ? Pertinent Radiologic Findings: ?(not provided) ? Gross Description: ?Received in 50% ETOH, approximately 70 ml. total volume of clear, yellow ? fluid. ?Total Preparation: Liquid Based Prep 1. 11/16/2014 10:45 AM EDT [facility] URINE SPECIMEN OBTAINED BY CLEAN CATCH PROCEDURE / Unknown 11/15/2014 10:27 AM EDT 11/15/2014 10:27 AM EDT Coby Schroeder MD PATHOLOGY/CYTOLOGY ORDERABLES Performing Organization Address City/[facility]/ZIP Co de Phone Number AVIVA ELIZONDO [facility] [place] [address] * Cytopathology Non-Gynecological (11/15/2014 10:27 AM EDT) AP Specimen 11/15/2014 10:2 7 AM EDT 11/15/2014 10:27 AM EDT Narrative AVIVA ELIZONDO - 11/15/2014 10:27 AM EDT Specimen requisition ordered. ??Separate Pathology report to follow Coby Schroeder MD PATHOLOGY/CYTOLOGY ORDERABLES Performing Organization Address [facility]/ZIP Co de Phone Number AVIVA ELIZONDO * (ABNORMAL) Urinalysis with microscopic (11/15/2014 10:27 AM EDT) Glucose, Urine Dipstick Negative Negative mg/dL CERNER MILLENNIUM Protein, Urine Dipstick Negative Negative mg/dL CERNER MILLENNIUM Bilirubin, Urine Dipstick Negative Negative mg/dL CERNER MILLENNIUM Comment: Clinical correlation required for positive Urine Bilirubin results as false positive may occur with some drugs and drug related products. If a false positive is suspected a serum total bilirubin should be considered if clinically indicated. Urobilinogen, Urine Dipstick Normal Normal mg/dL CERNER MILLENNIUM pH, Urn (dipstick) 5.0 5.0 - 8.0 CERNER MILLENNIUM Blood, Urine Dipstick Moderate(A) Negative mg/dL CERNER MILLENNIUM Ketone, Urine Dipstick Negative Negative mg/dL CERNER MILLENNIUM Nitrite, Urine Dipstick Negative Negative CERNER MILLENNIUM Leukocytes, Urine Dipstick Negative Negative mcL CERNER MILLENNIUM Appearance, Urine Dipstick Clear Clear CERNER MILLENNIUM Specific [place] Urine Automated 1.024 1.002 - 1.030 CERNER MILLENNIUM Color, Urine Dipstick Yellow Yellow CERNER MILLENNIUM RBC, Urine 6(H) 0 - 3 /HPF CERNER MILLENNIUM WBC, Urine <1 0 - 3 /HPF CERNER MILLENNIUM Urine specimen (specimen) 11/15/2014 10:27 AM EDT 11/15/2014 12:17 PM EDT Narrative Resulting Agency Comment Spec In Lab Coby Schroeder MD URINE ORDERABLES CERNER MILLENNIUM documented in this encounter Visit Diagnoses Diagnosis Testicular pain, right Unspecified disorder of male genital organs Microscopic hematuria documented in this encounter Care Teams Oven Operator Automatic Relationship Specialty Start Date End Date Romeo Corbin MD [address] [place] [address] PCP - General 09/23/14 05/26/23 documented as of this encounter
--- OUTSIDE RECORDS SUMMARY | 2024-03-25 14:01 | XMS_ITS | Encounter Summary ---
Author Organization [facility] Address [facility] [place] [address] Care Team Providers Care Evaluator Transfer Students Name Role Phone Romeo Corbin MD Primary Care Provider [phone] Encounter Details Date Type Department Care Team (Latest Contact Info) Description 11/15/2014 10:40 AM EDT Procedure [place] [address] Ritesh Schroeder MD [facility] [place] [address] Hematuria, unspecified Discharge Disposition: Home Social History Tobacco Use Types Packs/Day Years Used Date Smoking Tobacco: Never Smokeless Tobacco: Never Sex and Gender Information Value Date Recorded Sex Assigned at Not on file Gender Identity Not on file Sexual Orientation Not on file documented as of this encounter Patient Instructions * Patient Instructions* Stacy Sawant LPN - 11/15/2014 9:58 AM EDT Instructions following Cystoscopy Activity: As tolerated by your comfort level. Fluids: You should increase your water today. Avoid coffee, tea and cola. You do not need to [id number] ounces of water today. Urination: You will likely have a small amount of blood in your urine for the next several days. This is normal; however, if you are passing large amounts of blood clots or are unable to void please call our office at [phone] before 5PM or [phone] after hours. Please call if: * you have copious blood in your urine * fevers greater than 101.3 F * you are unable to void The number for questions is [phone] before 5 PM weekdays and [phone] after 5 PM and weekends. Follow-up: With Cat Scan [facility] documented in this encounter Procedure Notes * Ritesh Schroeder MD - 11/15/2014 10:07 AM EDTAssociated Order(s): CYSTOSCOPY Pre-Procedure Diagnose(s): Hematuria, unspecified Patient: Som Judge Date of : 1970 SUBJECTIVE: This 44 y.o. years-old male presents for cystoscopy because of a history of microscopichematuria. PROCEDURE - CYSTOSCOPY: Informed consent obtained from the patient and the patient was correctly identified. The patient was cystoscoped with a flexible scope following routine skin cleansing and drapping. 2%xylocaine gel was instillated into the urethra. The [...] Therapy at [facility] [address] [place] [address] Kierra Moreno, PT [facility] PHYSICAL MEDICINE & [place] [address] 05/05/2024 9:00 AM EST Office Visit Functional Orthodox Program at [facility] [address] [place] [address] Mireya Nicole, OT 05/19/2024 8:00 AM EST Office Visit Physical Therapy at [facility] [address] [place] [address] Kierra Moreno, PT [facility] PHYSICAL [facility] [place] [place] [address] 06/02/2024 9:00 AM EST Office Visit Physical Therapy at [facility] [address] [place] [address] Kierra Moreno, PT [facility] PHYSICAL [facility] [place] [place] [address] documented as of this encounter Procedures Procedure Name Priority Date/Time Associated Diagnosis Comments CYSTOSCOPY Routine 11/15/2014 11:57 AM EDT Hematuria, unspecified documented in this encounter Results * Cystoscopy (11/15/2014 11:57 AM EDT) Narrative Ritesh Schroeder MD - 11/15/2014 11:57 AM EDT Ritesh Schroeder MD ? 11/15/2014 11:57 AM Patient: Som Judge Date of : 1970 SUBJECTIVE: This 44 y.o. years-old male presents for cystoscopy because of a history of microscopic hematuria. PROCEDURE - CYSTOSCOPY: Informed consent obtained from the patient and the patient was correctly identified. The patient was cystoscoped with a flexible scope following routine skin cleansing and drapping. ??2% xylocaine gel was instillated into the urethra. ??The urethra was normal, except for a mild short bulbar urethral stricture. ??The prostate appeared nonobstructive with a bilobar configuration. ??The external genitalia were normal. The bladder mucosa was normal. Ureteral orifices were located in an orthotopic position, effluxing clear urine. No bladder tumors or foreign bodies were noted. The patient tolerated the procedure well. Patient was given ciprofloxacin IMPRESSION: Normal ??Bladder, mild urethral stricture PLAN: 1) CT urogram and scrotal u/s 2) f/u prn Ritesh Schroeder MD PROCEDURE ORDER ALEXANDRU documented in this encounter Visit Diagnoses Diagnosis Hematuria, unspecified documented in this encounter Care Teams Evaluator Transfer Students Relationship Specialty Start Date End Date Romeo Corbin MD [address] [place] [address] PCP - General 09/23/14 05/26/23 documented as of this encounter
--- OUTSIDE RECORDS SUMMARY | 2024-03-25 14:01 | XMS_ITS | Clinical Summary ---
Author Organization [facility] Address [address] [place] [address] Care Team Providers Care Cured Meat Packing Supervisor Name Role Phone Unavailable Primary Care Provider Unavailabl e Allergies No known active allergies Medications No known medications Active Problems No known active problems Social History Tobacco Use Types Packs/Day Years Used Date Smoking Tobacco: Never Assessed Sex and Gender Information Value Date Recorded Sex Assigned at Not on file Gender Identity Not on file Sexual Orientation Not on file Obstetrics History Plan of Treatment Health Maintenance Due Date Last Done Comments Hepatitis C Screen 1970 Social Determinants Of Health (SDOH) 1970 Lipid Profile Screening (Cholesterol) 1974 Depression Screening 1983 HIV Screening 1987 Advance Directive 1989 Preventive Care Visit 1989 Hepatitis B Vaccine (1 of 3 - 19+ 3-dose series) 03/20 Pertussis (Adult) Immunization 1990 Tetanus (Adult) Immunization 1990 Cologuard (Colon Cancer Screening) 2016 Colonoscopy (Colon Cancer Screening) 2016 Colorectal Cancer Screening 2016 FIT Test (Colon Cancer Screening) 2016 Sigmoidoscopy (Colon Cancer Screening) 2016 Shingles Immunization (1 of 2) 2021 COVID-19 Vaccine ( season) 2023 Influenza Immunization (Adult) (#1) 2024 Nu Som Hardy Personal/Family Self 1970 [address] [place] [address] Nu Som Antony Personal/Family Self 1970 [address] [place] [address] Som Judge Personal/Family Self 1970 [address] [place] [address] Som Judge Personal/Family Self 1970 [address] [place] [address] Som Judge Personal/Family Self 1970 [address] [place] [address] Som Judge Personal/Family Self 1970 [address] [place] [address] Som Judge Personal/Family Self 1970 [address] [place] [address]
--- OUTSIDE RECORDS SUMMARY | 2024-03-25 14:01 | XMS_ITS | Encounter Summary ---
Author Organization Formerly [facility] Address [facility] [place] [address] Care Team Providers Care Copy Writer Name Role Phone Romeo Corbin MD Primary Care Provider [phone] Encounter Details Date Type Department Care Team (Latest Contact Info) Description 10/22/2022 Travel Social History Tobacco Use Types Packs/Day [...] EST Office Visit Physical Therapy at [facility] [address] [place] [address] Kierra Moreno, PT [facility] PHYSICAL MEDICINE & [place] [address] 05/05/2024 9:00 AM EST Office Visit Functional Worship Program at [facility] [address] [place] [address] Mireya Nicole, OT 05/19/2024 8:00 AM EST Office Visit Physical Therapy at [facility] [address] [place] [address] Kierra Moreno, PT [facility] PHYSICAL MEDICINE & [place] [address] 06/02/2024 9:00 AM EST Office Visit Physical Therapy at [address] [place] [address] Kierra Moreno, PT [facility] PHYSICAL MEDICINE & [place] [address] documented as of this encounter Visit Diagnoses Not on filedocumented in this encounter Care Teams Copy Writer Relationship Specialty Start Date End Date Romeo Corbin MD [address] [place] [address] PCP - General 09/23/14 05/26/23 documented as of this encounter
--- OUTSIDE RECORDS SUMMARY | 2024-03-25 14:01 | XMS_ITS | Encounter Summary ---
Author Organization [facility] [place] [address] Care Team Providers Care Coat Cutter Name Role Phone Unknown Primary Care Provider Unavailabl e Encounter Details Date Type Department Care Team (Late st Contact Info) Description 02/04/2014 Telephone [place] [address] Krishna Adan, [facility] [place] [address] Social History Tobacco Use Types Packs/Day Years Used Date Smoking Tobacco: Never Assessed Sex and Gender Information Value Date Recorded Sex Assigned at Not on file Gender Identity Not on file Sexual Orientation Not on file documented as of this encounter Miscellaneous Notes * Telephone Encounter - Krishna Adan, - 02/04/2014 4:36 PM EDT I received a phone call from emergency room physician, Meggan Galindo, at [facility], in [facility], regarding this patient. Apparently 4 days ago [...] angiogram of the head and neck in addition which was completely normal. The patient's symptoms are completely resolved when he is laying calmly, and are exacerbated when he gets up or moves his head. The emergency room physician said that his neurological exam is nonfocal. She said that she tried to transfer him to [facility] yesterday however beds were full. She said that their neurologist is off today. In light of the patient's symptoms occurring after being on amusement park rides that were spinning in nature, and beingcompletely normal prior to this, and feeling normal [...] [facility] [address] [place] [address] Kierra Moreno, PT [facility] PHYSICAL MEDICINE [place] [address] 05/05/2024 9:00 AM EST Office Visit Functional Shinto Program at [facility] [address] [place] [address] Mireya Nicole, OT 05/19/2024 8:00 AM EST Office Visit Physical Therapy at [facility] [address] [place] [address] Kierra Moreno, PT [facility] PHYSICAL BENY & [place] [address] 06/02/2024 9:00 AM EST Office Visit Physical Therapy at [facility] [address] [place] [address] Kierra Moreno, PT [facility] PHYSICAL BENY & [place] [address] documented as of this encounter Visit Diagnoses Not on filedocumented in this encounter Care Teams Coat Cutter Relationship Specialty Start Date End Date Unknown None PCP - General 02/03/14 09/22/14 documented as of this encounter
--- OUTSIDE RECORDS SUMMARY | 2024-03-25 14:01 | XMS_ITS | Encounter Summary ---
Author Organization [facility] [place] [address] Care Team Providers Care Seam Feller Name Role Phone Romeo Corbin MD Primary Care Provider [phone] Reason for Visit * Diagnostic Test (Routine) - Closed Specialty Diagnoses / Procedures Referred By Conteric t Referred To Contact Radiology Diagnoses Functional dyspepsia Procedures NM Gastric Emptying Scan Paul Holman MD [facility] [address] [place] [address] Referral ID Status Reason Start Date Expiration Date V isits Requested Visits Authorized [id number] Closed Specialty Service Requested 08/27/2022 02/28/2024 1 1 Encounter Details Date Type Department Care Team (Latest Contact Info) Description 09/13/2022 9:45 AM EDT Hospital Encounter [place] [phone] Paul Holman MD [facility] [place] [address] Discharge Disposition: Home Social History [...] EST Office Visit Physical Therapy at [facility] [address] [place] [address] Kierra Moreno, PT [facility] PHYSICAL MEDICINE [place] [address] 05/05/2024 9:00 AM EST Office Visit Functional Scientology Program at [facility] [address] [place] [address] Mireya Nicole, OT 05/19/2024 8:00 AM EST Office Visit Physical Therapy at [facility] [address] [place] [address] Kierra Moreno, PT [facility] PHYSICAL MED[facility]INE & [place] [address] 06/02/2024 9:00 AM EST Office Visit Physical Therapy at [facility] [address] [place] [address] Kierra Moreno, PT [facility]YSICAL [facility] [place] [address] documented as of this encounter Procedures Procedure [...] who have questions please contact the health personal carer that requested your imaging first. ? Narrative 09/13/2022 3:34 PM EDT EXAMINATION: NM [...] patients who have questions please contactthe health personal carer that requested your imaging first. Paul Holman MD IMG NM ORDERABLES documented in this encounter Visit Diagnoses Not on filedocumented in this encounter Care Teams Seam Feller Relationship Specialty Start Date End Date Romeo Corbin MD [address] [place] [address] PCP - General 09/23/14 05/26/23 documented as of this encounter
--- OUTSIDE RECORDS SUMMARY | 2024-03-25 14:01 | XMS_ITS | Encounter Summary ---
Author Organization [facility] [address] Care Team Providers Care Industrial Organizational Psychologist Name Role Phone Romeo Corbin MD Primary Care Provider [phone] Reason for Referral * Diagnostic Test (Routine) - Closed Specialty Diagnoses / Procedures Referred By Contac t Referred To Contact Radiology Diagnoses Radiculopathy of lumbar region Procedures MRI Lumbar Spine wo Contrast (Generic) Lacey Gleason APRN [facility] [place] [address] [place] [address] Referral ID Status Reason Start Date Expiration Date V isits Requested Visits Authorized [id number] Closed Specialty Service Requested 12/30/2020 07/02/2022 1 1 Reason for Visit * Diagnostic Test (Routine) - Closed Specialty Diagnoses / Procedures Referred By Contac t Referred To Contact Radiology Diagnoses Radiculopathy of lumbar region Procedures MRI Lumbar Spine wo Contrast (Generic) Lacey Gleason APRN [facility] [place] [address] [place] [address] Referral ID Status Reason Start Date Expiration Date V isits Requested Visits Authorized [id number] Closed Specialty Service Requested 12/30/2020 07/02/2022 1 1 Encounter Details Date Type Department Care Team (Latest Contact Info) Description 01/25/2021 7:34 PM EDT - 01/25/2021 11:59 PM EDT Hospital Encounter MRI at [facility] [place] [address] Lacey Gleason APRN [facility] [place] [address] Radiculopathy of lumbar region Discharge Disposition: Home [...] Take 1 tablet by mouth daily. 02/23/2019 nortriptyline (PAMELOR) 50 mg Capsule Take 1 capsule by mouth daily. 11/21/2020 08/28/2022 meclizine (Antivert) 25 mg Tablet Take 1 tablet by mouth as needed. 10/04/2014 04/12/2023 ondansetron (Zofran) 8 mg Tablet Take 1 tablet by mouth as needed. 12/31/2019 04/12/2023 SUMAtriptan (Imitrex) 50 mg Tablet Take 1 tablet by mouth as needed. 07/25/2020 04/12/2023 Levothyroxine (Tirosint) 50 mcg Capsule Take 1 capsule by mouth daily. 12/14/2019 08/27/2022 lactobacillus combination no.8 3 billion cell Capsule Take by mouth daily. 10/28/2020 05/28/2023 POTASSIUM CITRATE-CITRIC ACID ORAL Take by mouth daily. 07/27/2020 023 documented as of this encounter Plan of Treatment Upcoming Encounters Date Type Department Care Team (Late st Contact Info) Description 05/05/2024 8:00 AM EST Office Visit Physical Therapy at [facility] [address] [place] [address] Kierra Moreno, PT [facility] PHYSICAL MEDICINE & [place] [address] 05/05/2024 9:00 AM EST Office Visit Functional Adventist Program at [facility] [address] [place] [address] Mireya Nicole, OT 05/19/2024 8:00 AM EST Office Visit Physical Therapy at [facility] [address] [place] [address] Kierra Moreno, PT [facility] PHYSICAL MEDICINE [place] [address] 06/02/2024 9:00 AM EST Office Visit Physical Therapy at [facility] [address] [place] [address] Kierra Moreno, PT [facility] PHYSICAL MEDICINE & [place] [address] documented as of this encounter Procedures Procedure Name Priority Date/Time Associated Diagnosis Comments MRI LUMBAR SPINE WITHOUT CONTRAST Routine 01/25/2021 8:56 PM EDT Radiculopathy of lumbar region documented [...] in context of the clinical situation (Reference- Jarvik Et Al, Spine 2001). Findings: (Prevalence in [...] who have questions please contact the health neonatal intensive care nurse that requested your imaging first. ? Electronically signed by: Nuno Velasquez MD, [facility] ([phone]), at 01/26/2021 2:46 AM Narrative 01/26/2021 2:46 AM EDT EXAMINATION: MRI [...] RIGHT identified. Conus not included in the [id number], probably terminating at the level of T12. [...] RIGHT identified. Conus not included in the [id number],probably terminating at the level of T12. T12-L1: [...] in context of the clinical situation (Reference- Jarvik Et Al, [id number]). Findings: (Prevalence in patients without low back [...] patients who have questions please contactthe health neonatal intensive care nurse that requested your imaging first. Electronically signed by: Nuno Velasquez MD, [facility]([phone]), at 01/26/2021 2:46 AM Lacey Gleason APRN IMG MRI ORDERABLES documented in this encounter Visit Diagnoses Diagnosis Radiculopathy of lumbar region Thoracic or lumbosacral neuritis or radiculitis, unspecified documented in this encounter Care Teams Industrial Organizational Psychologist Relationship Specialty Start Date End Date Romeo Corbin MD [address] [place] [address] PCP - General 09/23/14 05/26/23 documented as of this encounter
--- OUTSIDE RECORDS SUMMARY | 2024-03-25 14:01 | XMS_ITS | Encounter Summary ---
Author Organization [facility] [place] [address] Care Team Providers Care Main Line Station Engineer Name Role Phone Romeo Corbin MD Primary Care Provider [phone] Encounter Details Date Type Department Care Team (Late st Contact Info) Description 09/04/2022 Telephone [place] [phone] Chantal Pat, RN Social History Tobacco Use [...] Telephone Encounter - Chantal Pat, RN - 09/04/2022 8:[address] [facility] requesting copy of referral to PT and recent OVNs. Reviewed chart. Faxed referral and RADHA 08/28/22 through computer. documented in this encounter Plan of Treatment Upcoming Encounters Date Type Department Care Team (Late st Contact Info) Description 05/05/2024 8:00 AM EST Office Visit Physical Therapy at [facility] [address] [place] [address] Kierra Moreno, PT [facility] PHYSICAL MEDICINE & [place] [address] 05/05/2024 9:00 AM EST Office Visit Functional Islam Program at [facility] [address] [place] [address] Mireya Nicole, OT 05/19/2024 8:00 AM EST Office Visit Physical Therapy at [facility] [address] [facility] [place] [address] Kierra Moreno, PT [facility] PHYSICAL MEDICINE & [place] [address] 06/02/2024 9:00 AM EST Office Visit Physical Therapy at [facility] [address] [place] [address] Kierra Moreno, PT [facility] PHYSICAL MEDICINE & [place] [address] documented as of this encounter Visit Diagnoses Not on filedocumented in this encounter Care Teams Main Line Station Engineer Relationship Specialty Start Date End Date Romeo Corbin MD [address] [place] [address] PCP - General 09/23/14 05/26/23 documented as of this encounter
--- OUTSIDE RECORDS SUMMARY | 2024-03-25 14:02 | XMS_ITS | Encounter Summary ---
Author Organization [facility] Address [address] [place] [address] Care Team Providers Care Trade Union Official Name Role Phone Unavailable Primary Care Provider Unavailabl e Encounter Details Date Type Department Care Team (Latest Contact Info) Description 08/15/2000 6:02 EST - 09/14/2000 11:59 EST Hospital Encounter [facility] [address] [place] [address] Josette Jarquin MD [address] [place] [phone] Discharge Disposition: Auto Discharge Social History Tobacco Use Types Packs/Day Years [...] on file documented as of this encounter Visit Diagnoses Not on filedocumented in this encounter
--- OUTSIDE RECORDS SUMMARY | 2024-03-25 14:02 | XMS_ITS | Encounter Summary ---
Author Organization [facility] Address [address] [place] [address] Care Team Providers Care Beverage Sales Consultant Name Role Phone Unavailable Primary Care Provider Unavailabl e Encounter Details Date Type Department Care Team (Latest Contact Info) Description 01/23/2000 9:08 EDT - 01/23/2000 11:59 EDT Hospital Encounter [address] [address] Dominic Forde MD Discharge Disposition: Auto Discharge Social History Tobacco [...] Procedure Name Priority Date/Time Associated Diagnosis Comments GROUP A STREP CULTURE Routine 01/23/2000 9:50 EDT documented in this encounter Results * CULTURE FOR GROUP A BETA STREPTOCOCCUS (01/23/2000 9:50 EDT) Specimen Description Throat [facility] Result NO GROUP A BETA STREPTOCOCCI ISOLATED [facility] Report Status Final [id number] [facility] 01/23/2000 9:50 EDT 01/23/2000 9:52 EDT Dominic Forde MD MICROBIOLOGY - GEN ERAL ORDERABLES [facility] [address] [place] [address] documented in this encounter Visit Diagnoses Not on filedocumented in this encounter
--- OUTSIDE RECORDS SUMMARY | 2024-03-25 14:02 | XMS_ITS | Encounter Summary ---
Author Organization [facility] Address [address] [place] [address] Care Team Providers Care Short Order Cook Name Role Phone Unavailable Primary Care Provider Unavailabl e Encounter Details Date Type Department Care Team (Late st Contact Info) Description 12/12/2000 10:11 EDT - 12/12/2000 11:59 EDT Hospital Encounter [address] [address] Jessica Chavarria MD [address] [place] [address] Discharge Disposition: Auto Discharge Social History Tobacco [...] Procedure Name Priority Date/Time Associated Diagnosis Comments TIBIA FIBULA 2 VIEWS Routine 12/12/2000 12:20 EDT documented in this encounter Results * TIBIA FIBULA 2 VIEWS (12/12/2000 12:20 EDT) Anatomical Region Laterality Modality Other 12/12/2000 12:2 0 EDT Narrative 04/26/2009 23:45 EST R/O HARDWARE DISPLACEMENT ??S/P TIBIAL TENDON REPAIR ??C/O SUDDEN PAIN I N THE AREA OF SURGERY TWO VIEWS OF THE RIGHT TIBIA. FINDINGS: There is an ossicle off of the distal fibula. The metallic screws in the proximal tibia are documented. No recent fracture or dislocation, however, is seen. /tns Procedure Note Jorge Luis Deluna MD - 04/26/2009 R/O HARDWARE DISPLACEMENT S/P TIBIAL TENDON REPAIR C/O SUDDEN PAIN I N THE AREA OF SURGERY TWO VIEWS OF THE RIGHT TIBIA. FINDINGS: There is an ossicle off of the distal fibula. The metallic screws in the proximal tibia are documented. No recent fracture or dislocation, however, is seen. /tns Jessica Chavarria MD IMG DIAGNOSTIC I MAGING ORDERABLES documented in this encounter Visit Diagnoses Not on filedocumented in this encounter
--- OUTSIDE RECORDS SUMMARY | 2024-03-25 14:02 | XMS_ITS | Encounter Summary ---
Author Organization [facility] Address [address] [place] [address] Care Team Providers Care President Ergonomic Consulting Name Role Phone Unavailable Primary Care Provider Unavailabl e Encounter Details Date Type Department Care Team (Latest Contact Info) Description 03/29/2001 3:05 EDT - 03/29/2001 11:59 EDT Hospital Encounter [facility] Emergency Department - [facility] [address] [place], [place] [id number] Emergency, Default, MD Discharge Disposition: Home or Self Care Social History Tobacco Use Types Packs/Day Years [...] Procedure Name Priority Date/Time Associated Diagnosis Comments CT HEAD WO CONTRAST Routine 03/29/2001 4 :10 EDT CREATININE Routine 03/29/2001 3:27 EDT HEMAGRAM & DIFF Routine 03/29/2001 3:27 EDT PROLACTIN Routine 03/29/2001 3:27 EDT BUN Routine 03/29/2001 3:27 EDT CALCIUM Routine 03/29/2001 3:27 EDT ELECTROLYTES Routine 03/29/2001 3:27 EDT documented in this encounter Results * CT HEAD WO CONTRAST (03/29/2001 4:10 EDT) Anatomical Region Laterality Modality Other 03/29/2001 4:10 EDT Narrative 04/27/2009 4:44 EST HEADACHE AND SEVERAL DAYS THEN? SEIZURE R.O BLEED CT BRAIN WITHOUT CONTRAST: 03/29/01 0410 HOURS. HISTORY: Headache for several days, then followed by possible seizure. TECHNIQUE: Axial noncontrast scans from the foramen magnum to the vertex. FINDINGS: The ventricles and extra-axial CSF spaces are normal for age. No sign of intracranial hemorrhage is present. No mass effect or midline shift is seen. [...] vertex. FINDINGS: The ventricles and extra-axial CSF spaces are normal for age. No sign of intracranial hemorrhage is present. No mass effect or midline shift is seen. The orbits and paranasal sinuses are clear. CONCLUSION: Normal unenhanced head CT for age. /ashleigh Abraham Magdaleno MD IM CT ORDERABLES * (ABNORMAL) PROLACTIN (03/29/2001 3:27 EDT) Prolactin 36.1(H) 2.1 - 17.1 ng/ml [facility] 03/29/2001 3:27 EDT 03/29/2001 3:27 EDT Default Emergency CHEMISTRY & BLOOD G ORDERABLES [facility] [address] [place] [address] * ELECTROLYTES (03/29/2001 3:27 EDT) Sodium 142 136 - 145 mEq/L [facility] Potassium 4.2 3.5 - 5.0 mEq/L [facility] Chloride 104 96 - 110 mEq/L [facility] CO2 27 24 - 30 mEq/L [facility] 03/29/2001 3:27 EDT 03/29/2001 3:27 EDT Default Emergency MD CHEMISTRY & BLOOD G ORDERABLES Performing Organization Address [facility] de Phone Number [facility] [address] [place] [address] * CREATININE (03/29/2001 3:27 EDT) Pathologist [facility] Creatinine 1.2 0.7 - 1.5 mg/dl [facility] 03/29/2001 3:27 EDT 03/29/2001 3:27 EDT Default Emergency HISTORICAL LAB FOR SQ LOAD Performing Organization Address [facility] de Phone Number [facility] [address] [place] [address] * HEMAGRAM & DIFF (03/29/2001 3:27 EDT) WBC 7.72 4.0 - 10.4 K/cmm [facility] [...] LAB PLT 228 141 - 320 K/cmm [facility] RDW-CV 12.5 11.8 - 14.1 % [facility] % Neutrophils 58.6 45.5 - 79.7 % [facility] % Lymphocytes 28.1 15.0 - 46.8 % [facility] % Monocytes 10.2 1.8 - 12.0 % [facility] % Eosinophils 1.9 0.6 - 6.9 % [facility] % Basophils 1.2 0.2 - 1.4 % [facility] ABS Neutrophils 4.52 2.20 - 8.85 K/cmm [facility] ABS Lymphs 2.17 1.09 - 3.30 K/cmm [facility] ABS Monocytes 0.79 0.1 - 0.8 K/cmm [facility] ABS Eosinophils 0.15 0.03 - 0.61 K/cmm [facility] ABS Basophils 0.09 0.01 - 0.11 K/cmm [facility] Type of Diff: Automated [facility] 03/29/2001 3:27 EDT 03/29/2001 3:27 EDT Default Emergency HISTORICAL LAB FOR SQ LOAD Performing Organization Address [facility] de Phone Number [facility] [address] [place] [address] * CALCIUM (03/29/2001 3:27 EDT) Calcium 9.8 8.5 - 10.5 mg/dl [facility] Calculated Calcium 10.4 8.5 - 10.5 mg/dl [facility] 03/29/2001 3:27 EDT 03/29/2001 3:27 EDT Default Emergency CHEMISTRY & BLOOD G ORDERABLES Performing Organization Address [facility] de Phone Number [facility] [address] [place] [address] * BUN (03/29/2001 3:27 EDT) BUN 18 10 - 26 mg/dl [facility] 03/29/2001 3:27 EDT 03/29/2001 3:27 EDT Default Emergency CHEMISTRY & BLOOD G ORDERABLES Performing Organization Address [facility] de Phone Number [facility] [address] [place] [address] documented in this encounter Visit Diagnoses Not on filedocumented in this encounter
--- OUTSIDE RECORDS SUMMARY | 2024-03-25 14:02 | XMS_ITS | Encounter Summary ---
Author Organization [facility] Address [address] [place] [address] Care Team Providers Care Bsa/Aml Compliance Officer Name Role Phone Unavailable Primary Care Provider Unavailabl e Encounter Details Date Type Department Care Team (Late st Contact Info) Description 04/13/1999 15:20 EDT Hospital Encounter [address] [address] Jessica Chavarria MD [address] [place] [phone] Social History Tobacco Use Types Packs/Day Years [...]
--- OUTSIDE RECORDS SUMMARY | 2024-03-25 14:02 | XMS_ITS | Encounter Summary ---
Author Organization [facility] Address [address] [place] [address] Care Team Providers Care Support Staff Name Role Phone Unavailable Primary Care Provider Unavailabl e Encounter Details Date Type Department Care Team (Late st Contact Info) Description 03/04/2007 Results Only [facility] - [facility] [address] [place] [address] Lina Guevara MD [address] [place] [address] Social History Tobacco Use Types Packs/Day Years Used Date Smoking Tobacco: Never Assessed Sex and Gender Information Value Date Recorded Sex Assigned at Not on file Gender Identity Not on file Sexual Orientation Not on file documented as of this encounter Plan of Treatment Not on file documented as of this encounter Procedures Procedure Name Priority Date/Time Associated Diagnosis Comments CYTOPATHOLOGY Routine 03/04/2007 0:00 EDT documented in this encounter Results * CYTOPATHOLOGY (03/04/2007 0:00 EDT) Pathology Report: CYTOPATHOLOGY REPORT Reports generated via electronic interface contain original data; however they are lacking the format of the original report. Caution should be taken when reading/interpreti ng unformatted reports. Name: ? CLAUDETTE JUDGE ? Accession #: ? [id number] : ? 1970 (Age: 36) ??M ?Collect Date: ? 03/04/2007 Location: ? [facility] ? Receive Date: ? 03/04/2007 Provider: ? LINA GUEVARA MD Copy to: ?FIDEL OLMOS BUILDING MAINTENANCE ENGINEER ? CYTOLOGIC DIAGNOSIS: ? Urine, bladder washing, cytologic evaluation: - Morphologic description only. See comment. ? COMMENT: ? The specimen is markedly paucicellular with rare groups of transitional cells present. This low cellularity precludes further evaluation. (Dr. Vasquez)/[facility] Document reviewed and electronically signed by: ? ABDELRAHMAN SUÁREZ MD Report Date: ??03/05/2007 13:35 By the signature above, the attending physician certifies that he/she has personally conducted a gross and/or microscopic examination of the described specimens and rendered or confirmed the above diagnosis. Specimen Type: ? Urine, Bladder Washing Clinical History: ? Hematuria ? Gross Description: ? 1 tube of Cytolyt was received and processed by selective cellular enhancement technique. ? End of Report [facility] 03/04/2007 03/04/2007 15: 18 EDT Lina Guevara MD PATHOLOGY ORDERABLES [facility] [address] [place] [address] documented in this encounter Visit Diagnoses Not on filedocumented in this encounter
--- OUTSIDE RECORDS SUMMARY | 2024-03-25 14:02 | XMS_ITS | Encounter Summary ---
Author Organization [facility] Address [address] [place] [address] Care Team Providers Care Supervisor Network Control Operators Name Role Phone Unavailable Primary Care Provider Unavailabl e Encounter Details Date Type Department Care Team (Latest Contact Info) Description 07/03/2000 11:41 EST - 07/03/2000 11:59 EST Hospital Encounter [address] [address] Romeo Oliveira MD Discharge Disposition: Auto Discharge Social History [...] Procedure Name Priority Date/Time Associated Diagnosis Comments L SPINE 4 OR MORE VIEWS Routine 07/03/2000 13:04 EST documented in this encounter Results * L SPINE 4 OR MORE VIEWS (07/03/2000 13:04 EST) Anatomical Region Laterality Modality Other 07/03/2000 13:0 4 EST Narrative 04/27/2009 0:16 EST 5 day lbp now with S1 radicular rx h/o compress fx 1990 r/o disc disease foraminal restriction LUMBAR SPINE W/OBLIQUES 07/03/00, 1255 hours HISTORY: Five day history of low back pain, now with S1 radicular symptoms. By report, there is a history of compression fractures in 1990. Evaluate for evidence of disc disease, foraminal restriction. FINDINGS: Five views of the lumbar spine without prior films available for comparison demonstrate the lumbar spine to be normally aligned with the exception of minimal levoconvex rotary scoliosis in the lower lumbar spine. There is no evidence of compression deformity within the visualized lower thoracic spine or lumbar spine. There are 5 non-rib bearing lumbar vertebral bodies. The intervertebral discs appear well maintained with minimal, if any narrowing of the L4-5 inner vertebral discs. No definitive pars defects are identified. The facet joints have a normal appearance. The SI joints appear intact. Findings were discussed with Dr. Romeo Oliveira on 07/03/00. D 07/03/00 T 07/07/00 /zainab Procedure Note Eloisa Robison MD - 04/27/2009 5 day lbp now with S1 radicular rx h/o compress fx 1990 r/o disc disease foraminal restriction LUMBAR SPINE W/OBLIQUES 07/03/00, 1255 hours HISTORY: Five day history of low back pain, now with S1 radicular symptoms. By report, there is a history of compression fractures in 1990. Evaluate for evidence of disc disease, foraminal restriction. FINDINGS: Five views of the lumbar spine without prior films available for comparison demonstrate the lumbar spine to be normally aligned with the exception of minimal levoconvex rotary scoliosis in the lower lumbar spine. There is no evidence of compression deformity within the visualized lower thoracic spine or lumbar spine. There are 5 non-rib bearing lumbar vertebral bodies. The intervertebral discs appear well maintained with minimal, if any narrowing of the L4-5 inner vertebral discs. No definitive pars defects are identified. The facet joints have a normal appearance. The SI joints appear intact. Findings were discussed with Dr. Romeo Oliveira on 07/03/00. D 07/03/00 T 07/07/00 /zainab Romeo Oliveira MD IMG DIAGNOSTIC IMAGING ORDERABLES documented in this encounter Visit Diagnoses Not on filedocumented in this encounter
--- OUTSIDE RECORDS SUMMARY | 2024-03-25 14:02 | XMS_ITS | Encounter Summary ---
Author Organization [facility] Address [address] [place] [address] Care Team Providers Care Potato Chip Packaging Machine Operator Name Role Phone Unavailable Primary Care Provider Unavailabl e Encounter Details Date Type Department Care Team (Latest Contact Info) Description 02/27/2000 18:01 EDT Hospital Encounter [facility] Emergency Department - [facility] [address] [place] [address] Emergency, Default, MD Discharge Disposition: Home or [...]
--- OUTSIDE RECORDS SUMMARY | 2024-03-25 14:02 | XMS_ITS | Encounter Summary ---
Author Organization [facility] Address [address] [place] [address] Care Team Providers Care Automat Car Attendant Name Role Phone Unavailable Primary Care Provider Unavailabl e Encounter Details Date Type Department Care Team (Late st Contact Info) Description 01/06/2007 Results Only [facility] [address] [place] [address] Angel Olmos, ADVERTISING AGENCY MANAGER [address] [place] [address] Social History Tobacco Use Types Packs/Day Years Used Date Smoking Tobacco: Never Assessed Sex and Gender Information Value Date Recorded Sex Assigned at Not on file Gender Identity Not on file Sexual Orientation Not on file documented as of this encounter Plan of Treatment Not on file documented as of this encounter Procedures Procedure Name Priority Date/Time Associated Diagnosis Comments CYTOPATHOLOGY Routine 01/06/2007 0:00 EDT documented in this encounter Results * CYTOPATHOLOGY (01/06/2007 0:00 EDT) Pathology Report: CYTOPATHOLOGY REPORT Reports generated via electronic interface contain original data; however they are lacking the format of the original report. Caution should be taken when reading/interpreti ng unformatted reports. Name: ? CLAUDETTE JUDGE ? Accession #: ? [id number] : ? 1970 (Age: 36) ??M ?Collect Date: ? 01/06/2007 Location: ? [facility] ? Receive Date: ? 01/07/2007 Provider: ? ANGEL OLMOS SKIRT CLIPPER Copy to: ? CYTOLOGIC DIAGNOSIS: ? Urine, voided, cytologic evaluation: - No malignant cells identified. Document reviewed and electronically signed by: ? ABDELRAHMAN SUÁREZ MD Report Date: ??01/08/2007 17:52 By the signature above, the attending physician certifies that he/she has personally conducted a gross and/or microscopic examination of the described specimens and rendered or confirmed the above diagnosis. Specimen Type: ? Urine, Voided Clinical History: ? Hematuria; clinical diagnosis code: ??599.7 ? Gross Description: ? 1 tube of Cytolyt was received and processed by selective cellular enhancement technique. ? End of Report [facility] 01/06/2007 01/07/2007 15: 51 EDT Angel Olmos ADVERTISING AGENCY MANAGER PATHOLOGY ORDERABLES [facility] [address] [place] [address] documented in this encounter Visit Diagnoses Not on filedocumented in this encounter
--- OUTSIDE RECORDS SUMMARY | 2024-03-25 14:02 | XMS_ITS | Encounter Summary ---
Author Organization [facility] Address [address] [place] [address] Care Team Providers Care Brake Drum Molder Name Role Phone Unavailable Primary Care Provider Unavailabl e Encounter Details Date Type Department Care Team (Late st Contact Info) Description 07/08/2021 Lab Requisition [facility] Pathology & Laboratory Medicine - [address] [address] Outr Resulting Lab, Provider Social History Tobacco [...] Procedure Name Priority Date/Time Associated Diagnosis Comments ZZCOVID-19 TEST [facility] LAB PCR Today 07/07/2021 14:30 EST COVID-19 TESTING Routine 07/07/2021 14:3 0 EST documented in this encounter Results * COVID-19 TEST [facility] PCR (07/07/2021 14:30 EST) Swab 07/07/2021 14:3 0 EST 07/08/2021 22:51 EST Provider Outr Resulting Lab MICROBIOLOGY - GENERAL ORDERABLES [facility] [address] [place] [address] * COVID-19 TESTING (07/07/2021 14:30 EST) COVID-19 rt-PCR Result Negative Negative 07/09/2021 15:19 EST [facility] Comment: This test has not been FDA cleared or approved. This test has been authorized by FDA under an EUA for use by authorized laboratories. This test has been authorized only for detection of nucleic acid from 2019-nCoV, not for any other viruses or pathogens. This test is only authorized for the duration of the declaration that circumstances exist justifying the authorization of emergency use of in vitro diagnostic tests for detection and/or diagnosis of 2019-nCoV under section 564(b)(1) of Act, 21 U.S.C ?? 360bbb-3(b) (1), unless the authorization is terminated or revoked sooner. Negative results do not preclude 2019-nCoV infection and should not be used as the sole basis for treatment or other patient management decisions. Negative results must be combined with clinical observations, patient history, and epidemiological information. Testing was performed using the yanci SARS-CoV-2 assay ([employer] on the Yanci 6800 System Performing Lab Yanci 6800 [facility] 07/09/2021 15:19 EST [facility] Swab 07/07/2021 14:3 0 EST 07/08/2021 22:51 EST Provider Outr Resulting Lab MICROBIOLOGY - GENERAL ORDERABLES [facility] [address] [place] [address] documented in this encounter Visit Diagnoses Not on filedocumented in this encounter
--- OUTSIDE RECORDS SUMMARY | 2024-03-25 14:02 | XMS_ITS | Encounter Summary ---
Author Organization [facility] Address [address] [place] [address] Care Team Providers Care Card Seller Name Role Phone Unavailable Primary Care Provider Unavailabl e Encounter Details Date Type Department Care Team (Late st Contact Info) Description 11/05/2019 Lab Requisition [facility] Pathology & Laboratory Medicine - [address] [address] Outr Resulting Lab, Provider Social History Tobacco [...] Comments ZZCOVID-19 TEST [facility] LAB PCR Today 11/05/2019 13:11 EDT COVID-19 TESTING Routine 11/05/2019 13:1 1 EDT documented in this encounter Results * COVID-19 TEST [facility] PCR (11/05/2019 13:11 EDT) Swab ENTIRE NASOPHARYNX / Unknown 11/05/2019 13:11 EDT 11/05/2019 20:58 EDT Provider Outr Resulting Lab MICROBIOLOGY - GENERAL ORDERABLES [facility] [address] [place] [address] * COVID-19 TESTING (11/05/2019 13:11 EDT) COVID-19 rt-PCR Result Negative Negative 11/06/2019 18:45 EDT [facility] Comment: Negative results do not preclude 2019-nCoV infection and should not be used as the sole basis for treatment or other patient management decisions. Negative results must be combined with clinical observations, patient history, and epidemiological information. This test was developed and its performance characteristics determined by [facility]. It has not been cleared or approved by the US Food and Drug Administration. FDA does not require this test to go through premarket FDA review. This test is used for clinical purposes. It should not be regarded as investigational or for research. This laboratory is certified under the Clinical Laboratory Improvement Amendments (CLIA) as qualified to perform high complexity clinical laboratory testing. This test is based on the CDC COVID-19 Emergency Use Authorization (EUA) assay, with minor modification as defined by the FDA Performed on the [employer] 7500 Fast. Performing Lab AB 7500 [facility] 11/06/2019 18:45 EDT [facility] Swab ENTIRE NASOPHARYNX / Unknown 11/05/2019 13:11 EDT 11/05/2019 20:58 EDT Provider Outr Resulting Lab MICROBIOLOGY - GENERAL ORDERABLES [facility] [address] [place] [address] documented in this encounter Visit Diagnoses Not on filedocumented in this encounter
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
--- OUTSIDE RECORDS SUMMARY | 2024-03-25 14:02 | XMS_ITS | Encounter Summary ---
Author Organization [facility] Address [address] [place] [address] Care Team Providers Care Chimney Builder Helper Name Role Phone Unavailable Primary Care Provider Unavailabl e Encounter Details Date Type Department Care Team (Late st Contact Info) Description 04/14/1999 20:17 EDT Hospital Encounter [address] [address] Jessica Chavarria MD [address] [place] [phone] Discharge Disposition: Auto Discharge Social History Tobacco [...]
--- OUTSIDE RECORDS SUMMARY | 2024-03-25 14:02 | XMS_ITS | Encounter Summary ---
Author Organization [facility] Address [address] [place] [address] Care Team Providers Care Director Employment Name Role Phone Unavailable Primary Care Provider Unavailabl e Encounter Details Date Type Department Care Team (Late st Contact Info) Description 02/01/2000 8:46 EDT Hospital Encounter [facility] [address] [place] [address] Lamine Mera MD [address] [place] [address] Social History Tobacco Use Types Packs/Day Years Used Date Smoking Tobacco: Never Assessed Sex and Gender Information Value Date Recorded Sex Assigned at Not on file Gender Identity Not on file Sexual Orientation Not on file documented as of this encounter Plan of Treatment Not on file documented as of this encounter Procedures Procedure Name Priority Date/Time Associated Diagnosis Comments BACTERIAL CULTURE/SMEAR, RESPIRATORY Routine 02/01/2000 10:25 EDT documented in this encounter Results * BACTERIAL CULTURE/SMEAR, RESPIRATORY (02/01/2000 10:25 EDT) Specimen Description Sputum [facility] Gram Smear Result No polys seen Few Squamous epithelial cells Few Mixed gram positive and gram negative organisms Smear suggests minimal or no inflammation. [facility] Result Smear suggests minimal or no inflammation. Consult Pathologist for further testing within 7 days [facility] Report Status Final [id number] [facility] 02/01/2000 10:2 5 EDT 02/01/2000 10:25 EDT Lamine Mera MD MICROBIOLOGY - GENERAL ORDERABLES [facility] [address] [place] [address] documented in this encounter Visit Diagnoses Not on filedocumented in this encounter
--- OUTSIDE RECORDS SUMMARY | 2024-03-25 14:02 | XMS_ITS | Encounter Summary ---
Author Organization [facility] Address [address] [place] [address] Care Team Providers Care Inpatient Pharmacist Name Role Phone Unavailable Primary Care Provider Unavailabl e Encounter Details Date Type Department Care Team (Latest Contact Info) Description 07/17/2000 8:52 EST - 07/17/2000 11:59 EST Hospital Encounter [facility] - [facility] [address] [place] [address] Josette Jarquin MD [address] [place] [phone] Discharge Disposition: Auto Discharge Social History [...]
--- OUTSIDE RECORDS SUMMARY | 2024-03-25 14:02 | XMS_ITS | Encounter Summary ---
Author Organization [facility] Address [address] [place] [address] Care Team Providers Care Product Test Engineer Name Role Phone Unavailable Primary Care Provider Unavailabl e Encounter Details Date Type Department Care Team (Late st Contact Info) Description 01/30/2000 17:41 EDT Hospital Encounter [address] [address] Jessica Chavarria MD [address] [place] [phone] Discharge Disposition: Auto Discharge Social History Tobacco [...]
--- OUTSIDE RECORDS SUMMARY | 2024-03-25 14:02 | XMS_ITS | Encounter Summary ---
Author Organization [facility] Address [address] [place] [address] Care Team Providers Care Noodle Press Operator Name Role Phone Unavailable Primary Care Provider Unavailabl e Encounter Details Date Type Department Care Team (Late st Contact Info) Description 04/19/2000 18:09 EST Hospital Encounter [address] [address] Luis Sam MD [address] [place] [phone] Discharge Disposition: Auto Discharge Social History Tobacco [...] Procedure Name Priority Date/Time Associated Diagnosis Comments FINGER 2 OR MORE VIEWS Routine 04/19/2000 18:37 EST documented in this encounter Results * FINGER 2 OR MORE VIEWS (04/19/2000 18:37 EST) Anatomical Region Laterality Modality Other 04/19/2000 18:3 7 EST Impressions 04/26/2009 17:05 EST IMPRESSION: 1. No evidence of acute displaced fracture or dislocation. Should pain persist, follow up imaging is recommended. D 04/20/00 T 04/23/00 /jl Narrative 04/26/2009 17:05 EST PAIN, SWELLING RT THUMB S/P INJ R/O FX 3 VIEWS, RIGHT THUMB 04/19/00, 1835 hours HISTORY: pain, swelling right thumb, s/p injury; r/o fx COMPARISON: none FINDINGS: Three views of the right thumb demonstrate normal bone mineral density and no evidence of acute displaced fracture or dislocation. Procedure Note Josette Nick MD - 04/26/2009 PAIN, SWELLING RT THUMB S/P INJ R/O FX 3 VIEWS, RIGHT THUMB 04/19/00, 1835 hours HISTORY: pain, swelling right thumb, s/p injury; r/o fx COMPARISON: none FINDINGS: Three views of the right thumb demonstrate normal bone mineral density and no evidence of acute displaced fracture or dislocation. IMPRESSION IMPRESSION: 1. No evidence of acute displaced fracture or dislocation. Should pain persist, follow up imaging is recommended. D 04/20/00 T 04/23/00 /zainab Luis Sam MD IMG DIAGNOSTIC IMAGI NG ORDERABLES documented in this encounter Visit Diagnoses Not on filedocumented in this encounter
--- OUTSIDE RECORDS SUMMARY | 2024-03-25 14:02 | XMS_ITS | Encounter Summary ---
Author Organization [facility] Address [address] [place] [address] Care Team Providers Care Waste Chopper Name Role Phone Unavailable Primary Care Provider Unavailabl e Encounter Details Date Type Department Care Team (Latest Contact Info) Description 08/04/1999 23:26 EST - 08/05/1999 11:59 EST Hospital Encounter [facility] Emergency Department - [facility] [address] [place] [address] Emergency, Default, MD Discharge Disposition: Home or [...]
--- OUTSIDE RECORDS SUMMARY | 2024-03-25 14:02 | XMS_ITS | Encounter Summary ---
Author Organization [facility] Address [address] [place] [address] Care Team Providers Care Assistant Corporate Controller Name Role Phone Unavailable Primary Care Provider Unavailabl e Encounter Details Date Type Department Care Team (Late st Contact Info) Description 07/28/2021 Lab Requisition [facility] Pathology & Laboratory Medicine - [address] [address] Outr Resulting Lab, Provider Social History Tobacco [...] Comments ZZCOVID-19 TEST [facility] LAB PCR Today 07/27/2021 15:45 EST COVID-19 TESTING Routine 07/27/2021 15:4 5 EST documented in this encounter Results * COVID-19 TEST [facility] PCR (07/27/2021 15:45 EST) Swab 07/27/2021 15:4 5 EST 07/28/2021 17:14 EST Provider Outr Resulting Lab MICROBIOLOGY - GENERAL ORDERABLES [facility] [address] [place] [address] * COVID-19 TESTING (07/27/2021 15:45 EST) COVID-19 rt-PCR Result Negative Negative 07/29/2021 11:45 EST [facility] Comment: This test [...] performed using the yanci SARS-CoV-2 assay ([employer] on the Yanci 6800 System Performing Lab Yanci 6800 [facility] 07/29/2021 11:45 EST [facility] Swab 07/27/2021 15:4 5 EST 07/28/2021 17:14 EST Provider Outr Resulting Lab MICROBIOLOGY - GENERAL ORDERABLES [facility] [address] [place] [address] documented in this encounter Visit Diagnoses Not on filedocumented in this encounter
--- OUTSIDE RECORDS SUMMARY | 2024-03-25 14:02 | XMS_ITS | Encounter Summary ---
Author Organization [facility] Address [address] [place] [address] Care Team Providers Care Mutton Puncher Name Role Phone Unavailable Primary Care Provider Unavailabl e Encounter Details Date Type Department Care Team (Late st Contact Info) Description 01/22/2020 Lab Requisition [facility] Pathology & Laboratory Medicine - [address] [address] Outr Resulting Lab, Provider Social History Tobacco [...] Procedure Name Priority Date/Time Associated Diagnosis Comments DO NOT ORDER STANDALONE - BROAD COVID TEST Today 01/22/2020 10:54 EDT COVID-19 TESTING Routine 01/22/2020 10:5 4 EDT documented in this encounter Results * DO NOT ORDER STANDALONE - BROAD COVID TEST (01/22/2020 10:54 EDT) COVID-19 rt-PCR Result NEGATIVE Negative 01/23/2020 16:[address] [facility] Comment: 2019-novel Coronavirus (2019-nCoV) not detected by the qRT-PCR assay. Consider testing for other respiratory viruses or re-collecting for 2019-nCoV testing. Note: Optimum timing for peak viral levels during infections caused by 2019-nCoV have not been determined. Collection of multiple specimens from the same patient may be necessary to detect the virus. Limitations Positive results are indicative of active infection with SARS-CoV-2 but do not rule out bacterial infection or co-infection with other viruses. The agent detected may not be the definite cause of disease. In addition, detection of viral RNA may not indicate the presence of infectious virus or that SARS-CoV-2 is the causative agent for clinical symptoms. Negative results do not preclude SARS-CoV-2 infection and should not be used as the sole basis for patient management decisions. Negative results must be combined with clinical observations, patient history, and epidemiological information. False negative results may also occur if amplification inhibitors are present in the specimen or if inadequate numbers of organisms are present in the specimen. Optimum specimen types and timing for peak viral levels during infections caused by SARS-CoV-2 have not been fully determined. Collection of multiple specimens (types and time points) from the same patient may be necessary to detect the virus. The test was validated for use with upper respiratory specimens obtained via nasopharyngeal or oropharyngeal swabs in VTM, UTM, M4, M5, M6, saline, and MTM media. The performance of this test has not been established for other specimens. Specimens collected using other FDA recommended Specimen Collection Materials listed in the FDA COVID-19 Diagnostic Technologies communication (September 10, 2019) are processed with the caveat that they were not [...] in accordance with CLIA regulations, College of [place] [employer] (CAP) guidelines (Sep 03, 2019), and FDA guidance (Aug 15, 2019). This test is only for use under the Food and Drug Administration's Emergency Use Authorization. Swab ENTIRE NASOPHARYNX / Unknown 01/22/2020 10:54 EDT 01/22/2020 15:55 EDT Provider Outr Resulting Lab MICROBIOLOGY - GENERAL ORDERABLES [facility] [place], [place] * COVID-19 TESTING (01/22/2020 10:54 EDT) COVID-19 rt-PCR Result NEGATIVE Negative 01/23/2020 18:25 EDT [facility] Comment: 2019-novel Coronavirus (2019-nCoV) not detected by the qRT-PCR assay. Consider testing for other respiratory viruses or re-collecting for 2019-nCoV testing. Note: Optimum timing for peak viral levels during infections caused by 2019-nCoV have not been determined. Collection of multiple specimens from the same patient may be necessary to detect the virus. Limitations Positive results are indicative of active infection with SARS-CoV-2 but do not rule out bacterial infection or co-infection with other viruses. The agent detected may not be the definite cause of disease. In addition, detection of viral RNA may not indicate the presence of infectious virus or that SARS-CoV-2 is the causative agent for clinical symptoms. Negative results do not preclude SARS-CoV-2 infection and should not be used as the sole basis for patient management decisions. Negative results must be combined with clinical observations, patient history, and epidemiological information. False negative results may also occur if amplification inhibitors are present in the specimen or if inadequate numbers of organisms are present in the specimen. Optimum specimen types and timing for peak viral levels during infections caused by SARS-CoV-2 have not been fully determined. Collection of multiple specimens (types and time points) from the same patient may be necessary to detect the virus. The test was validated for use with upper respiratory specimens obtained via nasopharyngeal or oropharyngeal swabs in VTM, UTM, M4, M5, M6, saline, and MTM media. The performance of this test has not been established for other specimens. Specimens collected using other FDA recommended Specimen Collection Materials listed in the FDA COVID-19 [employer] communication (September 10, 2019) are processed with the caveat that they were not [...] in accordance with CLIA regulations, [employer] of [place] [employer] (CAP) guidelines (Sep 03, 2019), and FDA guidance (Aug 15, 2019). This test is only for use under the Food and Drug Administration's Emergency Use Authorization. Performing Lab [facility] 01/23/2020 18:25 EDT [facility] Swab 01/22/2020 10:5 4 EDT 01/22/2020 15:55 EDT Provider Outr Resulting Lab MICROBIOLOGY - GENERAL ORDERABLES [facility] [address] [place] [address] [facility] [place], [place] documented in this encounter Visit Diagnoses Not on filedocumented in this encounter
--- OUTSIDE RECORDS SUMMARY | 2024-03-25 14:02 | XMS_ITS | Encounter Summary ---
Author Organization [facility] Address [address] [place] [address] Care Team Providers Care Vice President Research Name Role Phone Unavailable Primary Care Provider Unavailabl e Encounter Details Date Type Department Care Team (Late st Contact Info) Description 07/23/2000 7:07 [facility] Hospital Encounter [facility] [address] [place] [address] Josette Jarquin MD [address] [place] [phone] Social History Tobacco Use Types Packs/Day Years [...]
--- OUTSIDE RECORDS SUMMARY | 2024-03-25 14:02 | XMS_ITS | Encounter Summary ---
Author Organization [facility] Address [address] [place] [address] Care Team Providers Care Extension Clerk Name Role Phone Unavailable Primary Care Provider Unavailabl e Encounter Details Date Type Department Care Team (Latest Contact Info) Description 04/25/1999 17:10 EST Hospital Encounter [address] [address] Jovani Lara MD Discharge Disposition: Auto Discharge Social History [...]
--- OUTSIDE RECORDS SUMMARY | 2024-03-25 14:02 | XMS_ITS | Encounter Summary ---
Author Organization [facility] Address [address] [place] [address] Care Team Providers Care Food Mixer Repairer Name Role Phone Unavailable Primary Care Provider Unavailabl e Encounter Details Date Type Department Care Team (Late st Contact Info) Description 07/26/2020 Lab Requisition [facility] Pathology & Laboratory Medicine - [address] [address] Outr Resulting Lab, Provider Social History Tobacco [...] Priority Date/Time Associated Diagnosis Comments ZZCOVID-19 TEST [facility] PCR Today 07/25/2020 19:18 EST COVID-19 TESTING Routine 07/25/2020 19:1 8 EST documented in this encounter Results * COVID-19 TEST [facility] PCR (07/25/2020 19:18 EST) Swab ENTIRE NASOPHARYNX / Unknown 07/25/2020 19:18 EST 07/26/2020 21:53 EST Provider Outr Resulting Lab MICROBIOLOGY - GENERAL ORDERABLES [facility] [address] [place] [address] * COVID-19 TESTING (07/25/2020 19:18 EST) COVID-19 rt-PCR Result Negative Negative 07/27/2020 17:24 EST [facility] Comment: This test has not [...] developed and its performance characteristics determined by [facility]. It has not been cleared or approved [...] testing. This test is based on the [facility] COVID-19 Emergency Use Authorization (EUA) assay, with minor modification as defined by the FDA Performed on the [employer] 7 Flex RT-PCR System. Performing Lab [facility] 07/27/2020 17:24 EST [facility] Swab 07/25/2020 19:1 8 EST 07/26/2020 21:53 EST Provider Outr Resulting Lab MICROBIOLOGY - GENERAL ORDERABLES [facility] [address] [place] [address] documented in this encounter Visit Diagnoses Not on filedocumented in this encounter
--- OUTSIDE RECORDS SUMMARY | 2024-03-25 14:02 | XMS_ITS | Encounter Summary ---
Author Organization [facility] Address [address] [place] [address] Care Team Providers Care Paint Spray Inspector Name Role Phone Unavailable Primary Care Provider Unavailabl e Encounter Details Date Type Department Care Team (Late st Contact Info) Description 10/06/1999 13:51 EDT Hospital Encounter [address] [address] Jessica Chavarria MD [address] [place] [phone] Discharge Disposition: Auto Discharge Social History Tobacco [...]
[2024-03-25] MEDS: HYDROmorphone 2 MG/ML SYR 1 MG IVP (14:54)
[2024-03-25] MEDS: Ondansetron 4 MG/2 ML VIAL IVP ×2 (14:54→21:23)
--- NOTE | 2024-03-25 15:48 | PHA.REVIEW2 ---
Pharmacy Admission Review Admission Clinical Review Admission Pharmacy Review: prochlorperazine Adverse Reaction (Severe, Verified 03/25/24 09:27) Other (See Comment) erythromycin base (Erythromycin Base) Adverse Reaction (Intermediate, Verified 03/25/24 09:27) Vomiting cigarette smoke Allergy (Uncoded 03/25/24 09:27) Other (See Comment) Resuscitation Status Full Code Height 6 ft Weight 233.6 kg Pharmacy Admission Review Renal Dosing Renal Dosing: BUN 21 mg/dL (7-18) H 03/25/24 09:45 Creatinine 1.0 mg/dL (0.70-1.30) 03/25/24 09:45 Medications needing adjustments: Reviewed (CrCl 169.1 mL/min) List of meds needing interventions: Current medications are okay Anticoagulation Anticoagulation: Hgb 16.1 g/dL (13.5-17.5) 03/25/24 09:45 Hct 48.4 % (40.0-50.0) 03/25/24 09:45 Plt Count 242 10^3/uL (130-400) 03/25/24 09:45 INR 1.0 (0.9-1.1) 03/25/24 09:45 Creatinine 1.0 mg/dL (0.70-1.30) 03/25/24 09:45 DVT Prophylaxis: Intervened (changed from 40mg daily to 60mg BID due to a BMI > 60 (69.8)) Medications: Enoxaparin (60mg BID) Opiate Usage Evaluate Pain Scale/Pains Meds: Reviewed (hydromorphone IVP PRN - 1 dose given) Scheduled Bowel Reg ordered if on Opiates?: No Relevant Labs Relevant Labs: ESR 15 mm/hr (0-20) 03/25/24 09:45 Sodium 143 mmol/L (136-145) 03/25/24 09:45 Potassium 4.3 mmol/L (3.5-5.1) 03/25/24 09:45 Chloride 107 mmol/L (98-107) 03/25/24 09:45 Magnesium 2.1 mg/dL (1.8-2.4) 03/25/24 09:45 C-Reactive Protein 1.93 mg/dL (<or=0.5) H 03/25/24 09:45 Electrolytes, C-Reactive P, ESR: Reviewed Cardiac Review BP, HR, EF%: Reviewed (BP and HR WNL) QTc Review QTc: Reviewed (407 from 04/19/22 - most recent EKG on file) IV to PO Switch IV Medications: Reviewed (hydromorphone, ondansetron and Zosyn) Home Meds Home Med List reviewed: Reviewed Relevent Home Meds Not ordered & why?: ibuprofen (PRN) and THC Current Meds Current Medication Order Review: Intervened Comments: Changed timing of levothyroxine from 0830 to 0600 per pharmacy protocol Pharmacy Antibiotic Review Relevant Labs: Relevant Labs 03/25/24 09:45 C-Reactive Protein 1.93 H WBC 7.61 10^3/uL (4.4-10.8) 03/25/24 09:45 Temperature 36.5 C Temperature 36.5 C Temperature 36.5 C Temperature 36.6 C Temperature 36.6 C Microbiology 03/25/24 10:41 Stool Occult Blood (NIMO) - Final Stool NEGATIVE Pharmacy Antibiotic Activity: C/S review and Reviewed, no change Comments: Patient is on Zosyn 4.5g q8h for diverticulitis. Patient is afebrile, WBC WNL and no cultures currently pending.
[2024-03-25] MEDS: Enoxaparin 60 MG/0.6 ML SYR SC (18:25)
[2024-03-25] MEDS: Acetaminophen 325 MG TAB 650 MG PO (20:35)
[2024-03-25] MEDS: Normal Saline Flush 10 ML SYR IVP (20:36)
[2024-03-26] MEDS: PIPERACILLIN/TAZO 4.5 GM in Normal Saline 100 ML IVPB ×3 (04:05→20:30)
[2024-03-26 04:07] VITALS: BP 137/88; PULSE 55; RESP 15; TEMP 36.4; O2SAT 98
[2024-03-26] MEDS: Acetaminophen 325 MG TAB 650 MG PO (04:40)
[2024-03-26] MEDS: Levothyroxine 75 MCG TAB PO (05:40)
[2024-03-26 08:00] VITALS: BP 128/96; PULSE 52; RESP 16; TEMP 35.6; O2SAT 94
[2024-03-26] MEDS: Magnesium Oxide 400 MG TAB 1000 MG PO (08:25)
[2024-03-26] MEDS: Lactobacillus Acidophilus CAP 1 CAP PO (08:25)
[2024-03-26] MEDS: Tamsulosin 0.4 MG CAPCR PO (08:25)
[2024-03-26] MEDS: Vitamins B Comp w/C TAB 1 TAB PO (08:25)
[2024-03-26] MEDS: Normal Saline Flush 10 ML SYR IVP ×3 (08:25→20:32)
[2024-03-26] MEDS: Cholecalciferol (Vitamin D3) 1,000 UNIT TAB 2000 UNITS PO (08:25)
[2024-03-26 09:11] LABS: Abs Immature Grans 0.01 10^3/uL (0.0-0.06); Absolute Basophil Count 0.04 10^3/uL (0.0-0.2); Absolute Eosinophil Count 0.14 10^3/uL (0.0-0.7); Absolute Lymphocyte Count 2.28 10^3/uL (1.2-3.4); Absolute Neutrophil Count 2.97 10^3/uL (1.2-6.7); Basophils % 0.7 %; Eosinophils % 2.3 %; HCT 45.3 % (40.0-50.0); HGB 15.1 g/dL (13.5-17.5); Immature Grans % 0.2 %; Lymphocytes % 37.1 %; MCH 29.7 pg (27.0-33.0); MCHC 33.3 % (32.0-36.0); MCV 89 fL (80-95); MPV 9.1 fL (8.0-11.0); Monocytes % 11.4 %; Neutrophils % 48.3 %; Platelet Count 234 10^3/uL (130-400); RBC 5.09 10^6/uL (4.36-5.78); RDW-SD 39.2 fL; WBC 6.14 10^3/uL (4.4-10.8)
--- NOTE | 2024-03-26 09:14 | PDOC.CMIN ---
Date of service: 03/26/24 Time of Service: 09:14 Care Management Initial Assmt Initial Assessment Reason for Hospitalization: Diverticulitis Functional Status/Living Situation Patient Presentation: Som was awake, lying in bed when CM met with him. He easily engages in conversation. Per pt, he works at [employer] in [place] and will need a return to work letter. No needs or concerns at this time. CM will follow. Town of Residence: [place] Resides with: Spouse ( Syl) Natural Supports: Lives with and adult son Employment Status: Employed Instrumental Activities of Daily Living (ADLs): Independent Medications Medication Management: No Issues/Barriers identified Physical Functioning/Mobility Assistive Device: None Advance Directives Advance Directives: Do you have an Advance Directive: N 01/19/21 16:59 AD On File at [facility]: N 01/19/21 16:59 Date Asked 03/25/24 03/25/24 09:21 AD Date Reviewed COLST On File at [facility] COLST Date Scanned Code Status Resuscitation Status Full Code Insurance Coverage/Financial Issues Insurance: BC/BS of MD Care Team Visit Care Team Role Provider Type Sb Jones Primary Care Provider NON-[facility] STAFF PHYSICIAN KAVITHA Baldwin Emergency Provider PHYSICIANS DIAGRAM CLERK Ray Ren MD Admit Provider [facility] STAFF PHYSICIAN Attending Provider Discharge Potential Discharge Needs: PCP F/U Appt and Surgical F/U Appt Anticipated Barriers to Discharge: Medical Status Patient/Family Education Needs: Review discharge instructions, discuss Ask Me Three Transportation: Private vehicle Plan: Anticipate, Som will discharge home with no new services when medically ready. Will need to follow up with community providers. Transport via private vehicle with family. CM will follow. PFSH All Active Problems Acute diverticulitis (Acute) Hypothyroidism (Chronic) Hearing loss, left (Acute) TBI (traumatic brain injury) (Acute) Pt. states he did not have a TBI, but a was concussion COVID-19 (Acute) 09/14/21 Abdominal pain (Acute) Allergies (Acute) Right-sided sensorineural hearing loss (Acute) Low back pain (Acute) Urolithiasis (Chronic) Pelvic pain in male (Acute) LLQ abdominal pain (Acute) History of narcotic addiction (Acute) does not want narcotics offered to him at any time IBS (irritable bowel syndrome) (Chronic) Peripheral polyneuropathy (Acute) Depression (Chronic 09/03/17) Diverticulosis of colon without diverticulitis (Chronic) per colonoscopy 09/14/09-Dr. Mcdermott Medical History Renal calculi Fracture of lumbar spine Gastroesophageal reflux disease (06/29/13) Migraines PTSD (post-traumatic stress disorder) (09/03/17) Surgical History History of shoulder surgery History of right knee surgery Family History Mother No problems noted. Father Diabetes Melanoma Heart disease Hyperlipidemia Sister Multiple sclerosis Substance abuse Brother Asthma Alcohol abuse Substance abuse Maternal Grandfather , 70 Alcohol abuse Cancer Paternal Grandfather , in his 50s Tuberculosis Maternal Grandmother , 72 Alcohol abuse Asthma Cancer Paternal Grandmother Cancer Son Asthma Daughter Depression Anxiety Social History Smoking/Tobacco Use Status: Never Tobacco: How many years used: 10 Second Hand Exposure: Yes Smoking risk assessment performed?: Yes Alcohol Intake: former Drug use: Current Sobriety Substance use type: former substance user Details: 26 years clean per pt Caregiver/Support person: No Household members: spouse and children Housing: house Communication Needs: None Do you need help understanding health information?: Never Pets and animals: Yes Pets and animals: dog(s) Sexually active: Yes Do you think of yourself as: straight/heterosexual Current gender identity: male What is your relationship status?: How often do you talk on the phone with friends or family?: once per week How often do you get together with friends or relatives?: once per week How often do you attend bahai or mormon services?: decline to answer Do you belong to any clubs or organized social groups?: no Panel score (0-1 are the most socially isolated patients): 1 What type of physical activity do you participate in: walking and other Details: PiYo Duration: < 15 minutes/day Frequency: 1-2 times per week Ilda/Amish: None Special ilda needs: No Seatbelt use: always Helmet use: Yes Helmet use: sometimes Drive intox or ride w/intox swing 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 SDOH(Care Management) Screening Will the Patient Participate in the Screening?: Yes Do you worry about having a steady place to live?: no In the past 12 months, have you had to go without electric, gas, oil or water in your home?: no Have you or anyone in your house had to go without enough food to eat?: no Has lack of transportation kept you from medical appointments or from doing things needed for daily living?: no Has anyone in your support network made you feel unsafe for any reason?: no
--- NOTE | 2024-03-26 10:22 | W.PM.PROGNOT ---
Date of Service Date of service: 03/26/24 Time of Service: 10:23 Assessment and Plan Assessment and plan (1) IBS (irritable bowel syndrome): Status: Chronic (2) Acute diverticulitis: Status: Acute Assessment and plan: abx- zosyn wbc- 6.1 crp 1.1 pt c/o more pain/less appetite. encourage ambulation adjust meds for back pain -lidocaine patches and skelaxin/toradol adjust meds for colon -try bentyl for spasm d/w pt diet. He is not hungry. will not advance/cont clears (3) Low back pain: Status: Acute Qualifiers: Chronicity: acute Back pain laterality: midline Sciatica presence: without sciatica Qualified Code(s): M54.5 - Low back pain (4) Peripheral polyneuropathy: Status: Acute Subjective Subjective Interval history since last seen: Pt notes increased pain over night in LUQ dand radiates into back. no headaches. No CP or SOB. no productive cough. no dysuria. no leg pain or swelling. He notes increased gas/bloating. Not much appetite. No BM Exam Narrative Exam Narrative: PHYSICAL EXAM GENERAL APPEARANCE: Alert, healthy appearance, oriented, x 3,? in no acute distress HYDRATION: Well hydrated HEAD, EYES, EARS, NECK, THROAT: Head is normocephalic, pupils equal, round, reactive to light and accommodation, ocular movement intact, sclera clear and no jaundice. ?Dentition intact. LUNGS: normal respiration/normal chest excursion. ?Clear to auscultation bilaterally. ?No wheeze. ?HEART: Regular rate and rhythm. no murmurs EXTREMITY: No edema or cyanosis.? no leg pain, redness, swelling.? ABDOMEN: soft. pain at splenic flexure. BS present, but hypoactive. Objective Last Vital Signs Temp 35.6 C L 03/26/24 08:00 Pulse 52 L 03/26/24 08:00 Resp 16 03/26/24 08:00 BP 128/96 H 03/26/24 08:00 Pulse Ox 94 03/26/24 08:00 Laboratory Results - last 24 hr 03/25/24 03/25/24 10:00 10:41 Urine Color Yellow Urine Clarity Clear Urine pH 5.5 Ur Specific [place] 1.025 Urine Protein Negative Urine Ketones Negative Urine Blood Trace-intact H Urine Nitrite Negative Urine Bilirubin Negative Urine Urobilinogen 0.2 Ur Leukocyte Esterase Negative Urine RBC 5-10 H Urine WBC 0-2 Ur Epithelial Cells Rare Urine Crystals Negative Urine Bacteria Few Urine Casts Negative Urine Mucus Moderate Ur Culture Indicated? No Urine Glucose Negative ABO/Rh O Negative Antibody Screen NEGATIVE Time Spent with Patient Time Spent with Patient: <25 minutes Time was spent: preparing to see the patient(eg.review tests), obtaining and/or reviewing separately otained hiistory, ordering medications,tests, procedures, referring, communicating with other health health care coordinator, indepentently interpreting results, counseling the patient, care coordination and other
[2024-03-26] MEDS: Ketorolac 15 MG/ML VIAL IVP ×2 (11:02→17:18)
[2024-03-26] MEDS: Dicyclomine 10 MG CAP PO (11:02)
[2024-03-26] MEDS: Lidocaine 5% Patch 1 PATCH TP (11:45)
[2024-03-26 12:08] LABS: C-Reactive Protein 1.12 mg/dL (<or=0.5)
[2024-03-26] MEDS: Acetaminophen 500 MG TAB 1000 MG PO ×2 (12:47→18:14)
--- NOTE | 2024-03-26 14:22 | CHAPLAIN ---
Som was resting on top of the bed when I visited. His said his has been in to visit, and he's been comfortable being here although not feeling well enough to go home, but well enough to go home. His has been into visit and they're in touch by phone. I explained my role and offered support.
[2024-03-26 20:17] VITALS: BP 128/82; PULSE 64; RESP 15; TEMP 36.4; O2SAT 97
[2024-03-26] MEDS: Patch Removal LIDOCAINE 1 EACH TP (23:23)
[2024-03-27] MEDS: Ondansetron 4 MG/2 ML VIAL IVP (03:35)
[2024-03-27] MEDS: PIPERACILLIN/TAZO 4.5 GM in Normal Saline 100 ML IVPB ×2 (03:35→11:32)
[2024-03-27] MEDS: Levothyroxine 75 MCG TAB PO (06:20)
[2024-03-27 07:38] VITALS: BP 126/92; PULSE 54; RESP 18; TEMP 36.5; O2SAT 97
[2024-03-27] MEDS: Cholecalciferol (Vitamin D3) 1,000 UNIT TAB 2000 UNITS PO (08:22)
[2024-03-27] MEDS: Vitamins B Comp w/C TAB 1 TAB PO (08:23)
[2024-03-27] MEDS: Lactobacillus Acidophilus CAP 1 CAP PO (08:23)
[2024-03-27] MEDS: Magnesium Oxide 400 MG TAB 1000 MG PO (08:23)
[2024-03-27] MEDS: Tamsulosin 0.4 MG CAPCR PO (08:24)
[2024-03-27] MEDS: Normal Saline Flush 10 ML SYR IVP ×2 (08:24→14:59)
[2024-03-27] MEDS: Enoxaparin 40 MG/0.4 ML SYR SC (08:25)
--- NOTE | 2024-03-27 09:04 | PDOC.CMPRO ---
Date of service: 03/27/24 Time of Service: 09:04 Care Management Progress Note Progress Note Text Progress Note Text: Som was awake and lying in bed when CM met with him. He c/o abdominal pain, but feels it's tolerable. Pt reports that his diet has been advanced, but he has no desire to eat. He is eager to meet with the Surgical provider and would like to discharge home today if possible. Discharge Potential Discharge Needs: PCP F/U Appt and Surgical F/U Appt Anticipated Barriers to Discharge: Medical Status Patient/Family Education Needs: Review discharge instructions, discuss Ask Me Three Transportation: Private vehicle Plan: Anticipate, Som will discharge home with no new services when medically ready. Will need to follow up with community providers. Transport via private vehicle with family. CM will follow. SDOH(Care Management) Screening Will the Patient Participate in the Screening?: Yes Do you worry about having a steady place to live?: no In the past 12 months, have you had to go without electric, gas, oil or water in your home?: no Have you or anyone in your house had to go without enough food to eat?: no Has lack of transportation kept you from medical appointments or from doing things needed for daily living?: no Has anyone in your support network made you feel unsafe for any reason?: no
--- NOTE | 2024-03-27 09:30 | NUR.NOTE ---
Nursing Note: Shift assessment done with the nursing information systems coordinator. This RN concurs with documented findings.
[2024-03-27 12:54] LABS: HCT 45.5 % (40.0-50.0); HGB 15.3 g/dL (13.5-17.5); MCH 29.8 pg (27.0-33.0); MCHC 33.6 % (32.0-36.0); MCV 89 fL (80-95); Platelet Count 236 10^3/uL (130-400); RBC 5.14 10^6/uL (4.36-5.78); RDW 11.8 % (11.8-14.1); RDW-SD 38.5 fL; WBC 5.73 10^3/uL (4.4-10.8)
[2024-03-27 13:19] LABS: C-Reactive Protein < 0.50 mg/dL (<or=0.5)
[2024-03-27 14:55] VITALS: BP 119/92; PULSE 60; RESP 20; TEMP 36.6; O2SAT 98
[2024-03-27] MEDS: Ketorolac 15 MG/ML VIAL IVP (14:58)
--- NOTE | 2024-03-27 16:42 | NUR.NOTE ---
Nursing Note:Patient wants to hold off on Tramadol for now.
--- NOTE | 2024-03-27 17:54 | DSE_ITS ---
Date of service: 03/27/24 Time of Service: 17:54 DS: Diagnosis Discharge Diagnosis (1) IBS (irritable bowel syndrome): Status: Chronic (2) Acute diverticulitis: Status: Acute (3) Low back pain: Status: Acute (4) Peripheral polyneuropathy: Status: Acute Discharge Plan Disposition Patient Disposition: Home Condition: Good Discharge Details Reason For Visit: Diverticulitis Admit Date/Time: 03/25/24 12:29 Admit Provider: Ray Ren Attending Provider: Ray Ren Primary Care Provider: Sb Jones Hospital Course Hospital Course: Som is 54 years old, he comes to the emergency department with acute onset of abdominal pain, there was about the level of the umbilicus and on the left side. He underwent a CT scan of the abdomen and pelvis that demonstrated Hinchey grade 1 diverticulitis. There was a small phlegmon in the descending colon mesentery without any abscess. He was started on some antibiotics. He had a normal white blood cell count, and a slightly elevated CRP which trended down during his hospital stay. His diet was slowly advanced, and his pain seemed to improve. He was discharged home with outpatient instructions and follow-up office visit for diverticulitis Home Meds and New Rx's Prescriptions: New polyethylene glycol 3350 [Miralax] 17 gram/dose powder 17 g PO DAILY Qty: 119 0RF Rx Instructions: take 17 grams mixed 8-12 ounces of a liquid, every day for 1 week Continued vitamin B complex [B Complex 1] Tablet 1 tab PO DAILY magnesium 250 mg tablet 1,000 mg PO DAILY albuterol sulfate [Ventolin HFA] 90 mcg/actuation HFA aerosol inhaler 2 puff IH Q6H PRN (Reason: shortness of breath or wheezing) Qty: 8.5 0RF tamsulosin 0.4 mg capsule 0.4 mg PO DAILY Qty: 90 3RF Lactobacillus acidophilus 100 mg (1 billion cell) capsule 100 mg PO DAILY Qty: 90 3RF cholecalciferol (vitamin D3) [Vitamin D3] 1,000 UNIT capsule 2 cap PO DAILY acetaminophen [Tylenol] 325 mg Tablet 650 mg PO ONCE PRN ibuprofen 200 mg Tablet 200 mg PO Q6H PRN THC 5 mg HS desvenlafaxine succinate 50 mg tablet extended release 24 hr 50 mg PO DAILY desvenlafaxine succinate 100 mg tablet extended release 24 hr 100 mg PO DAILY Patient Comments: Take 1 tablet once a day levothyroxine 75 mcg tablet 75 mcg PO DAILY Discharge Instructions Instructions: Diverticulitis (DC), High-fiber diet Additional Instructions: Som, it was very nice meeting you in the hospital and I hope you make a quick recovery at home. I provided a presciption for miralax like we discussed. Take 17 grams (one packet or one capful) mixed into a beverage every day for one week. Check your temperature once in the morning and once in the evening for the next 48 hours. Let me know if you exceep 100. I'll have the office call you on Saturday to schedule a follow up appointment. If you need anything else this weekend, just call the hospital stencil machine operator and have them page the surgeon special education bus driver, that will get you to me. Stand Alone Forms: Nursing Discharge Form Activity:: Activity as Tolerated Equipment/Supplies:: No Equipment Needed Diet:: As Tolerated Discharge Orders Discharge Orders: Discharge Order (Routine); Ordered 03/27/24 Ordered By: Ray Ren Discharge Data Discharge Date/Time-TO BE ENTERED AT DEPARTURE: 03/27/24 18:25 DS: Summary Time Spent with Patient providing and/or coordinating discharge services: Less than 30 minutes Status at Discharge Functional status at discharge: independent ambulation Overall status at discharge: patient is progressing back to baseline Mental Status: mental status grossly normal Speech and Movement: speech and movement normal Mood: congruent mood Affect: normal affect Quality:SDOH Health Related Social Needs: No Data to Display Exam GI Other: Abdomen is soft and nondistended. He has good bowel sounds. His tenderness is improved since admission Psych Mental Status: mental status grossly normal Speech and Movement: speech and movement normal Mood: congruent mood Affect: normal affect DS: Data Vitals/I&O Vitals and I&O: Vital Signs Temperature 97.9 F 03/27/24 14:55 Temperature Source Temporal Artery Scan 03/27/24 14:55 Pulse 60 03/27/24 14:55 Respiratory Rate 20 03/27/24 14:55 Respiratory Effort Normal 03/25/24 14:12 Respiratory Depth Normal 03/25/24 14:12 Respiratory Pattern Normal 03/25/24 14:12 Blood Pressure 119/92 H 03/27/24 14:55 Pulse Oximetry 98 03/27/24 14:55 Oxygen Delivery Method Room Air 03/27/24 14:55 Oxygen Flow Rate 0 03/27/24 14:55 Pain Level 3 03/27/24 15:58 Comment RN notified. 03/27/24 14:55 Intake & Output 03/26/24 03/27/24 03/27/24 23:59 11:59 23:59 Intake Total 200 / 600 100 / 100 Balance 200 / -300 100 / 100 Intake: IV 200 / 300 100 / 100 Other: Comment voided in toilet patient voids independently. Voiding Methods Toilet Data Completed and Pending Labs on day of discharge: Labs from last 24 hours 03/27/24 03/27/24 12:42 06:16 WBC 5.73 RBC 5.14 Hgb 15.3 Hct 45.5 MCV 89 MCH 29.8 MCHC 33.6 RDW 11.8 Plt Count 236 MPV 9.0 C-Reactive Protein < 0.50 Lidocaine Pending PFSH All Active Problems Acute diverticulitis (Acute) Hypothyroidism (Chronic) Hearing loss, left (Acute) TBI (traumatic brain injury) (Acute) Pt. states he did not have a TBI, but a was concussion COVID-19 (Acute) 09/14/21 Abdominal pain (Acute) Allergies (Acute) Right-sided sensorineural hearing loss (Acute) Low back pain (Acute) Urolithiasis (Chronic) Pelvic pain in male (Acute) LLQ abdominal pain (Acute) History of narcotic addiction (Acute) does not want narcotics offered to him at any time IBS (irritable bowel syndrome) (Chronic) Peripheral polyneuropathy (Acute) Depression (Chronic 09/03/17) Diverticulosis of colon without diverticulitis (Chronic) per colonoscopy 09/14/09-Dr. Mcdermott Medical History Renal calculi Fracture of lumbar spine Gastroesophageal reflux disease (06/29/13) Migraines PTSD (post-traumatic stress disorder) (09/03/17) Surgical History History of shoulder surgery History of right knee surgery Family History Mother No problems noted. Father Diabetes Melanoma Heart disease Hyperlipidemia Sister Multiple sclerosis Substance abuse Brother Asthma Alcohol abuse Substance abuse Maternal Grandfather , 70 Alcohol abuse Cancer Paternal Grandfather , in his 50s Tuberculosis Maternal Grandmother , 72 Alcohol abuse Asthma Cancer Paternal Grandmother Cancer Son Asthma Daughter Depression Anxiety Social History Smoking/Tobacco Use Status: Never Tobacco: How many years used: 10 Second Hand Exposure: Yes Smoking risk assessment performed?: Yes Alcohol Intake: former Drug use: Current Sobriety Substance use type: former substance user Details: 26 years clean per pt Caregiver/Support person: No Household members: spouse and children Housing: house Communication Needs: None Do you need help understanding health information?: Never Pets and animals: Yes Pets and animals: dog(s) Sexually active: Yes Do you think of yourself as: straight/heterosexual Current gender identity: male What is your relationship status?: How often do you talk on the phone with friends or family?: once per week How often do you get together with friends or relatives?: once per week How often do you attend mormon or advent services?: decline to answer Do you belong to any clubs or organized social groups?: no Panel score (0-1 are the most socially isolated patients): 1 What type of physical activity do you participate in: walking and other Details: PiYo Duration: < 15 minutes/day Frequency: 1-2 times per week Ilda/Denominational: None Special ilda needs: No Seatbelt use: always Helmet use: Yes Helmet use: sometimes Drive intox or ride w/intox sanitation truck 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 Time Spent with Patient Time Spent with Patient: <45 minutes Time was spent: preparing to see the patient(eg.review tests), ordering medications,tests, procedures, counseling the patient and care coordination
[2024-03-27 21:15] LABS: Lidocaine <1.0 mcg/mL (1.5-5.0)
[2024-03-29 20:41] LABS: Lidocaine <1.0 mcg/mL (1.5-5.0)
== END 2024-03-27 18:25 | disposition home or self-care (01) ==
LOC: ER 11:58 → MS 14:17
PROVIDERS: Surgery; Admitting Provider Surgery; Emergency Provider Physician Assistant; PCP Physician Assistant; Visit Provider Surgery
DX: K57.32 Diverticulitis of large intestine without perforation or abscess without bleeding (principal); M54.50 Low back pain, unspecified; G62.9 Polyneuropathy, unspecified; K58.0 Irritable bowel syndrome with diarrhea; E03.9 Hypothyroidism, unspecified; N20.0 Calculus of kidney; F32.A Depression, unspecified; G43.909 Migraine, unspecified, not intractable, without status migrainosus; F43.10 Post-traumatic stress disorder, unspecified; K21.9 Gastro-esophageal reflux disease without esophagitis
CPT/HCPCS: 36415; 80048; 80076; 83690; 85027; 85652; 86850; 86900; 86901; 96361; 96365; 96366; 96372; 96375; 96376; 99285; J1650; 74174; 80176; 81003; 81015; 82270; 83605; 83735; 85025; 85610; 86140; G0378; J0131; J1171; J1885; J2405; J2543; J3490

== ENCOUNTER 2024-05-22 15:24 | Outpatient (REF) | payer BC, SELFPAY ==
[2024-05-22 20:00] LABS: TSH 3.71 uIU/mL (0.36-3.74)
== END 2024-05-22 15:25 | disposition home or self-care (01) ==
LOC: NCHCN 15:24
PROVIDERS: PCP Physician Assistant; Visit Provider Physician Assistant
DX: E03.9 Hypothyroidism, unspecified (principal)
CPT/HCPCS: 84443

== ENCOUNTER 2024-09-07 13:54 | Outpatient (CLI) | payer BC, SELFPAY ==
[2024-09-08 09:03] LABS: PSA, Screening 0.2 ng/mL (<=3.5)
== END 2024-09-07 13:55 | disposition home or self-care (01) ==
LOC: LBO 13:56
PROVIDERS: PCP Physician Assistant; Visit Provider Nurse Practitioner Gerontology
DX: R39.9 Unspecified symptoms and signs involving the genitourinary system (principal); N45.1 Epididymitis; K58.9 Irritable bowel syndrome, unspecified
CPT/HCPCS: 36415; 84153

== ENCOUNTER 2024-09-08 18:45 | Emergency (ER) | payer BC, SELFPAY ==
[2024-09-08 18:49] VITALS: BP 145/94; PULSE 73; RESP 17; TEMP 36.4; O2SAT 97
[2024-09-08 18:58] VITALS: BP 145/94; PULSE 75; RESP 16; TEMP 36.4; O2SAT 96
--- NOTE | 2024-09-08 19:00 | DI.CT_ITS ---
Exam(s) CT ABDOMEN PELVIS W EXAM: CT ABDOMEN PELVIS W CLINICAL HISTORY: llq abd pain. TECHNIQUE: Imaging Protocol: Axial computed tomography images with coronal and sagittal reformatted images were created and reviewed CONTRAST MATERIAL: Intravenous: Omnipaque 350 Contrast volume:100 ml Oral: no COMPARISON: CT CT ABDOMEN PELVIS CTA from 03/25/2024 FINDINGS: ABDOMEN and PELVIS: Lung Bases: No acute findings. Liver: [id number] hepatic steatosis.. No suspicious mass. Gallbladder and biliary tract: Gallstones again noted. No wall thickening or pericholecystic fluid. No biliary dilation. Pancreas: Normal density. No abnormal calcifications or inflammatory process. No evidence of mass. Spleen: Normal. Kidneys: Normal size, contour and axis. No radiodense stones. No obstructive uropathy. No suspicious masses seen. Adrenal glands: No masses seen. Vasculature: Abdominal aorta non-dilated. Soft tissues: Small fat containing umbilical hernia. Small fat containing inguinal hernias, right gr eater than left. Bladder: No gross wall thickening. No calculi.No focal mass. Bowel: No obstruction. Sigmoid diverticulosis. No evidence of diverticulitis. Appendix normal. Peritoneal cavity: No ascites. No focal collection. No mesenteric inflammatory response. No free air . Bones: Unremarkable for age. Reproductive organs: Unremarkable. Lymph nodes: No pathologically enlarged lymph nodes. IMPRESSION:: No acute abnormality in the abdomen or pelvis. RADIATION DOSE DELIVERED: 668.91mGy.cm Total DLP DATA REPOSITORY: All CT scans at this facility are submitted to the National Radiology Data Registry (NRDR) Dose Index Registry (DIR) with the [employer] (ACR). RADIATION OPTIMIZATION: All CT scans at this facility use at least one of these dose optimization te chniques: automated exposure control; mA and/or kV adjustment per patient size (includes targeted exa ms where dose is matched to clinical indication); or iterative reconstruction.
--- NOTE | 2024-09-08 19:12 | ED.GENADUL_ITS ---
Discharge Plan Disposition Patient Disposition: Home Discharge Details Clinical Impression: Abdominal pain Primary Care Provider: Sb Jones ED Provider: Maurice Puente Home Meds and New Rx's Prescriptions: No Action vitamin B complex [B Complex 1] Tablet 1 tab PO DAILY magnesium 250 mg tablet 1,000 mg PO DAILY albuterol sulfate [Ventolin HFA] 90 mcg/actuation HFA aerosol inhaler 2 puff IH Q6H PRN (Reason: shortness of breath or wheezing) Qty: 8.5 0RF tamsulosin 0.4 mg capsule 0.4 mg PO DAILY Qty: 90 3RF levofloxacin 500 mg tablet 500 mg PO DAILY Qty: 10 0RF psyllium husk [Fiber (psyllium husk)] 0.52 gram capsule 1.04 g PO DAILY cholecalciferol (vitamin D3) [Vitamin D3] 1,000 UNIT capsule 2 cap PO DAILY acetaminophen [Tylenol] 325 mg Tablet 650 mg PO ONCE PRN ibuprofen 200 mg Tablet 200 mg PO Q6H PRN THC 5 mg .Route HS desvenlafaxine succinate 50 mg tablet extended release 24 hr 50 mg PO DAILY desvenlafaxine succinate 100 mg tablet extended release 24 hr 100 mg PO DAILY Patient Comments: Take 1 tablet once a day levothyroxine 75 mcg tablet 75 mcg PO DAILY Discharge Instructions Instructions: Abdominal Pain, Adult ED Additional Instructions: Lab work and CT imaging did not reveal any acute cause of your abdominal pain. Symptoms could be ongoing from your epididymitis and epididymitis treatment. The antibiotic can be slightly upsetting to your GI tract. Continue the treatment and monitor your symptoms. Follow-up with urology and primary care as needed. Discharge Data Discharge Date/Time-TO BE ENTERED AT DEPARTURE: 09/08/24 22:11 HPI General Date/Time Provider Initiated Documentation: 09/08/24 18:47 . Limitations to Documentation: no limitations . Information obtained by: patient . HPI Narrative: 54-year-old gentleman with past medical history of IBS, diverticulitis, recent d iagnosis of epididymitis currently on antibiotic therapy presents for evaluation of worsening left lower quadrant abdominal pain. Abdominal pain symptoms have been ongoing during this time that he has also been having scrotal pain. He was recently seen by urology had an ultrasound and was diagnosed with epididymitis and is currently on antibiotics. He reports some subjective fevers at home. No vomiting. No diarrhea or constipation. Related Data Home Medications ?Medication ?Instructions ?Recorded ?Confirmed cholecalciferol (vitamin D3) 25 2 cap PO DAILY 09/09/15 09/08/24 mcg (1,000 unit) capsule (Vitamin D3) magnesium 250 mg tablet 1,000 mg PO DAILY 02/23/19 09/08/24 vitamin B complex (B Complex 1 1 tab PO DAILY 02/23/19 09/08/24 tablet) albuterol sulfate 90 mcg/actuation 2 puff inhalation Q6H PRN 04/27/19 09/08/24 aerosol inhaler (Ventolin HFA) shortness of breath or wheezing #8.5 grams acetaminophen 325 mg tablet 650 mg PO ONCE PRN 01/08/20 09/08/24 (Tylenol) ibuprofen 200 mg tablet 200 mg PO Q6H PRN 08/17/21 09/08/24 tamsulosin 0.4 mg capsule 0.4 mg PO DAILY #90 caps 06/28/22 09/08/24 THC 5 mg .Route HS 03/25/24 09/08/24 desvenlafaxine succinate 100 mg 100 mg PO DAILY 03/25/24 09/08/24 tablet,extended release 24 hr desvenlafaxine succinate 50 mg 50 mg PO DAILY 03/25/24 09/08/24 tablet,extended release 24 hr levothyroxine 75 mcg tablet 75 mcg PO DAILY 03/25/24 09/08/24 psyllium husk 0.52 gram capsule 1.04 g PO DAILY 04/14/24 09/08/24 (Fiber (psyllium husk)) levofloxacin 500 mg tablet 500 mg PO DAILY #10 tabs 09/07/24 09/08/24 Previous Rx's ?Medication ?Instructions ?Recorded albuterol sulfate 90 mcg/actuation 2 puff inhalation Q6H PRN 04/27/19 aerosol inhaler (Ventolin HFA) shortness of breath or wheezing #8.5 grams tamsulosin 0.4 mg capsule 0.4 mg PO DAILY #90 caps 06/28/22 levofloxacin 500 mg tablet 500 mg PO DAILY #10 tabs 09/07/24 Allergies Allergy/AdvReac Type Severity Reaction Status Date / Time prochlorperazine AdvReac Severe Other (See Verified 09/08/24 19:03 Comment) erythromycin base AdvReac Intermediate Vomiting Verified 09/08/24 19:03 (Erythromycin Base) cigarette smoke Allergy Other (See Uncoded 09/08/24 19:03 Comment) General Stated Complaint: Abd Prob YADY: 3 Exam Narrative Exam Narrative: Review of Systems: All systems reviewed & are unremarkable except as noted in HPI and below Well-developed, no acute distress NCAT PERRL, normal conjunctiva RRR Unlabored respiratory effort Nondistended abdomen soft, mild left lower quadrant tenderness no guarding or rebound, no CVA tenderness Course Vital Signs Vital signs: Vital Signs Temperature 36.4 C L 09/08/24 18:49 Pulse 73 09/08/24 18:49 Respiratory Rate 17 09/08/24 18:49 Blood Pressure 145/94 H 09/08/24 18:49 Pulse Oximetry 97 09/08/24 18:49 Temperature 36.4 C L 09/08/24 18:58 Temperature Source Temporal Artery Scan 09/08/24 18:58 Pulse 75 09/08/24 18:58 Respiratory Rate 16 09/08/24 18:58 Blood Pressure 145/94 H 09/08/24 18:58 Blood Pressure Position Sitting 09/08/24 18:58 Pulse Oximetry 96 09/08/24 18:58 Oxygen Delivery Method Room Air 09/08/24 18:58 Oxygen Flow Rate 0 09/08/24 18:49 Pain Level 5 09/08/24 18:58 Medical Decision Making Emergent evaluation of abdominal pain. Patient has some mild tenderness on examination. The patient is afebrile and hemodynamically stable. Initial differential includes renal stone, diverticulitis, constipation. Urinalysis from yesterday was reviewed and there is no sign of infection there I do not feel that repeat CT urinalysis would be beneficial. Lab work obtained, no leukocytosis, normal renal function. CT of his abdomen was obtained and this did not reveal an acute diverticulitis or other etiology that would explain his left lower quadrant abdominal pain. Recommend that he continue his treatment for epididymitis, antibiotics and monitor symptoms, if he is having worsening abdominal pain, please return to the emergency department otherwise please follow-up with urology and PCP. Quality:SDOH Health Related Social Needs: No Data to Display PFSH All Active Problems (Updated 09/08/24 @ 22:01 by Maurice Puente MD) Abdominal pain (Acute) Diverticulitis (Chronic) Hypothyroidism (Chronic) Hearing loss, left (Acute) TBI (traumatic brain injury) (Acute) Pt. states he did not have a TBI, but a was concussion COVID-19 (Acute) 09/14/21 Abdominal pain (Acute) Allergies (Acute) Right-sided sensorineural hearing loss (Acute) Low back pain (Acute) Urolithiasis (Chronic) Pelvic pain in male (Acute) LLQ abdominal pain (Acute) History of narcotic addiction (Acute) does not want narcotics offered to him at any time IBS (irritable bowel syndrome) (Chronic) Peripheral polyneuropathy (Acute) Depression (Chronic 09/03/17) Medical History (Updated 09/08/24 @ 22:01 by Maurice Puente MD) Diverticulosis of colon without diverticulitis per colonoscopy 09/14/09-Dr. Mcdermott Renal calculi Fracture of lumbar spine Gastroesophageal reflux disease (06/29/13) Migraines PTSD (post-traumatic stress disorder) (09/03/17) Surgical History History of shoulder surgery History of right knee surgery Family History Mother No problems noted. Father Diabetes Melanoma Heart disease Hyperlipidemia Sister Multiple sclerosis Substance abuse Brother Asthma Alcohol abuse Substance abuse Maternal Grandfather , 70 Alcohol abuse Cancer Paternal Grandfather , in his 50s Tuberculosis Maternal Grandmother , 72 Alcohol abuse Asthma Cancer Paternal Grandmother Cancer Son Asthma Daughter Depression Anxiety Social History Smoking/Tobacco Use Status: Never Tobacco: How many years used: 10 Second Hand Exposure: Yes Smoking risk assessment performed?: Yes Alcohol Intake: former Drug use: Current Sobriety Substance use type: former substance user Details: 26 years clean per pt Caregiver/Support person: No Household members: spouse and children Housing: house Communication Needs: None Do you need help understanding health information?: Never Pets and animals: Yes Pets and animals: dog(s) Sexually active: Yes Do you think of yourself as: straight/heterosexual Current gender identity: male What is your relationship status?: How often do you talk on the phone with friends or family?: once per week How often do you get together with friends or relatives?: once per week How often do you attend cheondoism or sabianism services?: decline to answer Do you belong to any clubs or organized social groups?: no Panel score (0-1 are the most socially isolated patients): 1 What type of physical activity do you participate in: walking and other Details: PiYo Duration: < 15 minutes/day Frequency: 1-2 times per week Ilda/Spiritism: None Special ilda needs: No Seatbelt use: always Helmet use: Yes Helmet use: sometimes Drive intox or ride w/intox 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
[2024-09-08 19:22] LABS: Abs Immature Grans 0.02 10^3/uL (0.0-0.06); Absolute Basophil Count 0.05 10^3/uL (0.0-0.2); Absolute Eosinophil Count 0.14 10^3/uL (0.0-0.7); Absolute Lymphocyte Count 2.84 10^3/uL (1.2-3.4); Absolute Monocyte Count 0.79 10^3/uL (0.1-0.8); Absolute Neutrophil Count 4.96 10^3/uL (1.2-6.7); Basophils % 0.6 %; Eosinophils % 1.6 %; HCT 40.6 % (40.0-50.0); HGB 13.6 g/dL (13.5-17.5); Immature Grans % 0.2 %; Lymphocytes % 32.3 %; MCH 29.4 pg (27.0-33.0); MCHC 33.5 % (32.0-36.0); MCV 88 fL (80-95); MPV 9.5 fL (8.0-11.0); Neutrophils % 56.3 %; Platelet Count 235 10^3/uL (130-400); RBC 4.63 10^6/uL (4.36-5.78); RDW 12.8 % (11.8-14.1); RDW-SD 41.1 fL
[2024-09-08 19:37] LABS: ALT 63 U/L (16-63); AST 24 U/L (15-37); Albumin 3.4 g/dL (3.4-5.0); Alkaline Phosphatase 92 U/L (46-116); Anion Gap 10.3 mmol/L (3-11); BUN 21 mg/dL (7-18); Bilirubin, Total 0.4 mg/dL (0.2-1.0); CO2 24.7 mmol/L (21.0-32.0); CREATININE 0.9 mg/dL (0.70-1.30); Calcium 8.7 mg/dL (8.5-10.1); Chloride 107 mmol/L (98-107); Estimated GFR 102.12 (mL/min/1.73m2); Glucose 100 mg/dL (74-106); Potassium 3.8 mmol/L (3.5-5.1); Sodium 142 mmol/L (136-145); Total Protein 7.5 g/dL (6.4-8.2)
[2024-09-08] MEDS: Omnipaque 350 MG/ML 100 ML BTL IJ (20:29)
[2024-09-08] MEDS: Normal Saline Flush 10 ML SYR IVP (20:30)
[2024-09-08] MEDS: Normal Saline - Diluent 50 ML VIAL IJ (20:30)
[2024-09-08] MEDS: ACETAMINOPHEN 1,000 MG/100 ML BAG 400 MG IVPB (21:37)
--- NOTE | 2024-09-08 21:44 | DI.VRAD_ITS ---
PROCEDURE INFORMATION: Exam: CT Abdomen And Pelvis With Contrast Exam date and time: 09/08/2024 8:30 PM Age: 54 years old Clinical indication: Abdominal pain; Localized; Left lower quadrant (llq); Llq abd pain TECHNIQUE: Imaging protocol: Computed tomography of the abdomen and pelvis with contrast. Radiation optimization: All CT scans at this facility use at least one of these dose optimization techniques: automated exposure control; mA and/or kV adjustment per patient size (includes targeted exams where dose is matched to clinical indication); or iterative reconstruction. Contrast material: OMNIPAQUE 350; Contrast volume: 100 ml; Contrast route: INTRAVENOUS (IV); COMPARISON: CT ABDOMEN PELVIS CTA 03/25/2024 10:47 AM FINDINGS: Lungs: Linear bibasilar opacities most consistent with subsegmental atelectasis. Liver: There is a diffuse decrease in hepatic parenchymal density, consistent with fatty infiltration. Gallbladder and biliary ducts: The gallbladder is contracted. Pancreas: The pancreas is unremarkable. Spleen: No splenomegaly. No lesions. Adrenal glands: The adrenal glands are unremarkable. Kidneys and ureters: Bilateral renal cysts are present, as well as other subcentimeter hypodensities which are too small to characterize. Stomach and bowel: Unremarkable. No obstruction. No mucosal thickening. Appendix: Normal appendix. Intraperitoneal space: Unremarkable. No free air. No significant fluid collection. Vasculature: Patent vessels without evidence of aneurysm, dissection, occlusion or critical stenosis. Lymph nodes: No mesentery adenopathy. No edema. Urinary bladder: No focal wall thickening of the urinary bladder. Reproductive: Unremarkable as visualized. Bones/joints: No acute osseous abnormality. Soft tissues: Moderate-size fat containing umbilical hernia. Bilateral fat containing inguinal hernias. Soft tissues are unremarkable as visualized. IMPRESSION: No acute findings. Dictated and Authenticated by: Justine Gallo MD. Orderin Cindi Ruiz MD
[2024-09-08 22:11] VITALS: BP 142/95; PULSE 67; RESP 19; TEMP 37; O2SAT 95
== END 2024-09-08 22:11 | disposition home or self-care (01) ==
PROVIDERS: Emergency Provider Emergency Medicine; PCP Physician Assistant
DX: R10.32 Left lower quadrant pain (principal); N45.1 Epididymitis; E03.9 Hypothyroidism, unspecified
CPT/HCPCS: 80053; 96365; 99285; 74177; 85025; 99284; J0131; J3490

== ENCOUNTER 2024-10-17 05:46 | Observation (INO) | payer BC, SELFPAY ==
[2024-10-17] VITALS (81 sets, daily range): BP systolic 92–232; BP diastolic 73–155; PULSE 43–72; RESP 12–25; TEMP 36.2–36.8; O2SAT 91–100; BMI 31.5
--- NOTE | 2024-10-17 05:50 | ED.GENADUL_ITS ---
Discharge Plan Discharge Details Chief Complaint: Abd Prob Clinical Impression: Abdominal pain, RUQ Primary Care Provider: Sb Jones ED Provider: Willy Saunders [place] Meds and New Rx's Prescriptions: No Action vitamin B complex [B Complex 1] Tablet 1 tab PO DAILY magnesium 250 mg tablet 1,000 mg PO DAILY albuterol sulfate [Ventolin HFA] 90 mcg/actuation HFA aerosol inhaler 2 puff IH Q6H PRN (Reason: shortness of breath or wheezing) Qty: 8.5 0RF tamsulosin 0.4 mg capsule 0.4 mg PO DAILY Qty: 90 3RF psyllium husk [Fiber (psyllium husk)] 0.52 gram capsule 1.04 g PO DAILY cholecalciferol (vitamin D3) [Vitamin D3] 1,000 UNIT capsule 2 cap PO DAILY acetaminophen [Tylenol] 325 mg Tablet 650 mg PO ONCE PRN ibuprofen 200 mg Tablet 200 mg PO Q6H PRN THC 5 mg .Route HS PRN desvenlafaxine succinate 50 mg tablet extended release 24 hr 50 mg PO DAILY desvenlafaxine succinate 100 mg tablet extended release 24 hr 100 mg PO DAILY Patient Comments: Take 1 tablet once a day levothyroxine 75 mcg tablet 75 mcg PO DAILY HPI General Mode of arrival: ambulatory . Date/Time Provider Initiated Documentation: 10/17/24 05:49 . Limitations to Documentation: no limitations . Information obtained by: patient, RN notes reviewed and old records reviewed . HPI Narrative: Patient presents to ED with onset of right upper quadrant abdominal pain at about 2 AM. Pain radiates into the back and somewhat toward the shoulder. He denies any chest pain. Pain is worse with breathing. Nausea and vomiting began about an hour ago as the pain has become more intense. He does have prior history of renal colic and diverticulitis but states this is completely different. He had pizza for lunch yesterday and Tajik food last night. Den ies any urinary symptoms or diarrhea. Denies any fever that he is aware of but has been sweating. Has been unable to tolerate the pain any further and finally came to the emergency department. Related Data Home Medications ?Medication ?Instructions ?Recorded ?Confirmed cholecalciferol (vitamin D3) 25 2 cap PO DAILY 09/09/15 10/17/24 mcg (1,000 unit) capsule (Vitamin D3) magnesium 250 mg tablet 1,000 mg PO DAILY 02/23/19 10/17/24 vitamin B complex (B Complex 1 1 tab PO DAILY 02/23/19 10/17/24 tablet) albuterol sulfate 90 mcg/actuation 2 puff inhalation Q6H PRN 04/27/19 10/17/24 aerosol inhaler (Ventolin HFA) shortness of breath or wheezing #8.5 grams acetaminophen 325 mg tablet 650 mg PO ONCE PRN 01/08/20 10/17/24 (Tylenol) ibuprofen 200 mg tablet 200 mg PO Q6H PRN 08/17/21 10/17/24 tamsulosin 0.4 mg capsule 0.4 mg PO DAILY #90 caps 06/28/22 10/17/24 THC 5 mg .Route HS PRN 03/25/24 10/17/24 desvenlafaxine succinate 100 mg 100 mg PO DAILY 03/25/24 10/17/24 tablet,extended release 24 hr desvenlafaxine succinate 50 mg 50 mg PO DAILY 03/25/24 10/17/24 tablet,extended release 24 hr levothyroxine 75 mcg tablet 75 mcg PO DAILY 03/25/24 10/17/24 psyllium husk 0.52 gram capsule 1.04 g PO DAILY 04/14/24 10/17/24 (Fiber (psyllium husk)) Previous Rx's ?Medication ?Instructions ?Recorded albuterol sulfate 90 mcg/actuation 2 puff inhalation Q6H PRN 04/27/19 aerosol inhaler (Ventolin HFA) shortness of breath or wheezing #8.5 grams tamsulosin 0.4 mg capsule 0.4 mg PO DAILY #90 caps 06/28/22 Allergies Allergy/AdvReac Type Severity Reaction Status Date / Time prochlorperazine AdvReac Severe Other (See Verified 10/17/24 05:55 Comment) erythromycin base AdvReac Intermediate Vomiting Verified 10/17/24 05:55 (Erythromycin Base) cigarette smoke Allergy Other (See Uncoded 10/17/24 05:55 Comment) General YADY: 3 Exam Narrative Exam Narrative: Const: WDWN male appears uncomfortable. VS per triage. HEENT: NC/AT. Normal facial exam. Neck: Supple. Trachea midline. Lungs: Normal respiratory effort. Lungs are clear. Cor: RRR without murmur. Good radial pulses. GI: Soft/ND. Tender in the RUQ with voluntary guarding. Neuro: A+O x 3. Normal speech, mentation, gait. Cranial nerves II - XII grossly intact. No gross motor or sensory deficit. Ext: No C/C/E. Medical Decision Making Patient presenting to ED with onset of right upper quadrant abdominal pain around 2 AM this morning. It has worsened throughout the morning hours and now he has nausea and vomiting. There is radiation of pain into the back and right shoulder. Denies chest pain or shortness of breath but does appear uncomfortable. No previous abdominal surgeries. Tender in the right upper quadrant with voluntary guarding. Most likely gallbladder disease. IV establi shed laboratory studies sent. Will obtain EKG and a single troponin though I do not think this is likely cardiac. Patient declines morphine and is given ketorolac and ondansetron. IV fluids started. Patient is made NPO. CT of the abdomen pelvis ordered. 7:00 - Patient's EKG is normal except for 1st degree block. Labs and CT are still pending. Signed out to on coming ED physician, Dr. De Jesus. ECG Data Attestation: I personally reviewed and interpreted this ECG (s) as follows: Prior ECG tracings: available for review Interpretation: see EKG Quality:SDOH Health Related Social Needs: No Data to Display PFSH All Active Problems (Updated 10/17/24 @ 07:04 by Willy Saunders MD) Abdominal pain, RUQ (Acute) Diverticulitis (Chronic) Hearing loss, left (Acute) TBI (traumatic brain injury) (Acute) Pt. states he did not have a TBI, but a was concussion Allergies (Acute) Right-sided sensorineural hearing loss (Acute) Low back pain (Acute) Urolithiasis (Chronic) History of narcotic addiction (Acute) does not want narcotics offered to him at any time IBS (irritable bowel syndrome) (Chronic) Peripheral polyneuropathy (Acute) Depression (Chronic 09/03/17) Medical History Hypothyroidism Diverticulosis of colon without diverticulitis per colonoscopy 09/14/09-Dr. Mcdermott Renal calculi Fracture of lumbar spine Gastroesophageal reflux disease (06/29/13) Migraines PTSD (post-traumatic stress disorder) (09/03/17) Surgical History History of shoulder surgery History of right knee surgery Family History Mother No problems noted. Father Diabetes Melanoma Heart disease Hyperlipidemia Sister Multiple sclerosis Substance abuse Brother Asthma Alcohol abuse Substance abuse Maternal Grandfather , 70 Alcohol abuse Cancer Paternal Grandfather , in his 50s Tuberculosis Maternal Grandmother , 72 Alcohol abuse Asthma Cancer Paternal Grandmother Cancer Son Asthma Daughter Depression Anxiety Social History Smoking/Tobacco Use Status: Never Tobacco: How many years used: 10 Second Hand Exposure: Yes Smoking risk assessment performed?: Yes Alcohol Intake: former Drug use: Current Sobriety Substance use type: former substance user Details: 26 years clean per pt Caregiver/Support person: No Household members: spouse and children Housing: house Communication Needs: None Do you need help understanding health information?: Never Pets and animals: Yes Pets and animals: dog(s) Sexually active: Yes Do you think of yourself as: straight/heterosexual Current gender identity: male What is your relationship status?: How often do you talk on the phone with friends or family?: once per week How often do you get together with friends or relatives?: once per week How often do you attend anglican or oriental orthodox services?: decline to answer Do you belong to any clubs or organized social groups?: no Panel score (0-1 are the most socially isolated patients): 1 What type of physical activity do you participate in: walking and other Details: PiYo Duration: < 15 minutes/day Frequency: 1-2 times per week Ilda/Congregational: None Special ilda needs: No Seatbelt use: always Helmet use: Yes Helmet use: sometimes Drive 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
--- NOTE | 2024-10-17 06:00 | RT.EKG_ITS ---
APPROVED REPORT Exam: Resting ECG Reason for Exam: abdominal pain Patient Location: E HR:51 bpm ECG Measurements Heart Rate 51 AXIS SD 221 P 52 QRSd 113 QRS -30 QT 433 T 33 QTc 400 Conclusion Sinus bradycardia...rate< 60 Prolonged SD interval...SD >210, V-rate 50- 90 I have reviewed and interpreted ECG and agree with software generated interpretation.
[2024-10-17] MEDS: Ondansetron 4 MG/2 ML VIAL IVP ×2 (06:17→14:48)
[2024-10-17] MEDS: Ketorolac 15 MG/ML VIAL IVP ×2 (06:18→14:55)
[2024-10-17] MEDS: Lactated Ringers 1,000 ML 125 ML IV (06:20)
[2024-10-17 06:25] LABS: Abs Immature Grans 0.01 10^3/uL (0.0-0.06); Absolute Basophil Count 0.06 10^3/uL (0.0-0.2); Absolute Lymphocyte Count 3.14 10^3/uL (1.2-3.4); Absolute Neutrophil Count 4.82 10^3/uL (1.2-6.7); Basophils % 0.7 %; Eosinophils % 1.1 %; HCT 43.4 % (40.0-50.0); Immature Grans % 0.1 %; Lymphocytes % 35.6 %; MCH 29.9 pg (27.0-33.0); MCHC 34.6 % (32.0-36.0); MCV 87 fL (80-95); MPV 9.4 fL (8.0-11.0); Monocytes % 7.9 %; Neutrophils % 54.6 %; Platelet Count 276 10^3/uL (130-400); RBC 5.01 10^6/uL (4.36-5.78); RDW 12.8 % (11.8-14.1); WBC 8.83 10^3/uL (4.4-10.8)
[2024-10-17] MEDS: Normal Saline - Diluent 50 ML VIAL IV (06:55)
[2024-10-17] MEDS: Omnipaque 350 MG/ML 100 ML BTL IJ (06:57)
--- NOTE | 2024-10-17 06:59 | DI.CT_ITS ---
Exam(s) CT ABDOMEN PELVIS W EXAM: CT ABDOMEN PELVIS W CLINICAL HISTORY: RUQ abd pain. TECHNIQUE: Imaging Protocol: Axial computed tomography images with coronal and sagittal reformatted images were created and reviewed CONTRAST MATERIAL: Intravenous: Omnipaque 350 Contrast volume:100 ml Oral: no COMPARISON: CT CT ABDOMEN PELVIS W from 09/08/2024 FINDINGS: ABDOMEN and PELVIS: Lung Bases: No acute findings. Liver: Normal density. No suspicious mass. Gallbladder and biliary tract: Multiple calculi again noted. Question of mild wall thickening, not p resent previously. No pericholecystic fluid. No biliary dilation. Pancreas: Mild hepatic steatosis. No abnormal calcifications or inflammatory process. No evidence of mass. Spleen: Normal. Kidneys: Normal size, contour and axis. No radiodense stones. No obstructive uropathy. No suspicious masses seen. Adrenal glands: No masses seen. Vasculature: Abdominal aorta non-dilated. Soft tissues: Small fat containing umbilical hernia and small fat containing bilateral inguinal herni as. Bladder: Mild wall thickening which could be due to under distension.. No calculi.No focal mass. Bowel: No obstruction. No bowel wall thickening. Appendix normal. Mild diverticulosis Peritoneal cavity: No ascites. No focal collection. No mesenteric inflammatory response. No free air . Bones: Unremarkable for age. Reproductive organs: Unremarkable. Lymph nodes: No pathologically enlarged lymph nodes. IMPRESSION:: Cholelithiasis again demonstrated. The gallbladder now appears mildly distended and sh ows mild wall thickening which could indicate cholecystitis. Ultrasound could be performed for furth er evaluation. RADIATION DOSE DELIVERED: Total DLP DATA REPOSITORY: All CT scans at this facility are submitted to the National Radiology Data Registry (NRDR) Dose Index Registry (DIR) with the [employer] (ACR). RADIATION OPTIMIZATION: All CT scans at this facility use at least one of these dose optimization te chniques: automated exposure control; mA and/or kV adjustment per patient size (includes targeted exa ms where dose is matched to clinical indication); or iterative reconstruction.
[2024-10-17 07:00] LABS: ALT 79 U/L (16-63); AST 29 U/L (15-37); Albumin 3.6 g/dL (3.4-5.0); Alkaline Phosphatase 95 U/L (46-116); Anion Gap 12.5 mmol/L (3-11); BUN 26 mg/dL (7-18); Bilirubin, Total 0.5 mg/dL (0.2-1.0); CO2 23.5 mmol/L (21.0-32.0); CREATININE 1.2 mg/dL (0.70-1.30); Calcium 10.5 mg/dL (8.5-10.1); Chloride 105 mmol/L (98-107); Estimated GFR 72.31 (mL/min/1.73m2); Glucose 118 mg/dL (74-106); Lipase 29 U/L (<78); Magnesium 1.7 mg/dL (1.8-2.4); Potassium 3.8 mmol/L (3.5-5.1); Sodium 141 mmol/L (136-145); Total Protein 7.3 g/dL (6.4-8.2); Troponin I 6 ng/L (<or=76)
--- NOTE | 2024-10-17 07:25 | ED.PROG_ITS ---
Date of service: 10/17/24 Time of Service: 07:26 Medical Decision Making I received signout on this 54-year-old male with right upper quadrant pain pending read from CT scan. Patient's labs resulted and they were notable for no anemia no thrombocytopenia no leukocytosis. Very mild hypomagnesemia. Troponin below the upper limit of normal. Very mild hypercalcemia. No AZUCENA. Mild anion gap mild hyperglycemia but normal bicarbonate??not consistent with DKA. Reassuring lipase. CT read pending. 8:[address] scan was concerning for acute cholecystitis with gallbladder wall thickening and cholelithiasis. Patient was still slightly uncomfortable for which I ordered him IV acetaminophen. I spoke with Dr. Ratliff from general surgery who requested formal right upper quadrant ultrasound. 10:40 AM Patient was found to have acute cholecystitis on formal right upper quadrant radiology ultrasound with stone in neck gallbladder wall thickening but no pericholecystic fluid. I touched base again with Dr. Ratliff who will place hospitalization orders. Quality:SDOH Health Related Social Needs: No Data to Display Discharge Plan Disposition Patient Disposition: [facility]mit to [facility] Discharge Details Clinical Impression: Abdominal pain, RUQ, Acute cholecystitis Admit Date/Time: 10/17/24 11:05 Admit Provider: Robert Ratliff Attending Provider: Robert Ratliff Primary Care Provider: Sb Jones ED Provider: Romeo De Jesus Discharge Data Discharge Date/Time-TO BE ENTERED AT DEPARTURE: 10/17/24 11:53
--- NOTE | 2024-10-17 07:47 | DI.VRAD_ITS ---
PROCEDURE INFORMATION: Exam: CT Abdomen And Pelvis With Contrast Exam date and time: 10/17/2024 6:49 AM Age: 54 years old Clinical indication: Abdominal pain; Generalized TECHNIQUE: Imaging protocol: Computed tomography of the abdomen and pelvis with contrast. Radiation optimization: All CT scans at this facility use at least one of these dose optimization techniques: automated exposure control; mA and/or kV adjustment per patient size (includes targeted exams where dose is matched to clinical indication); or iterative reconstruction. Contrast material: OMNI 350; Contrast volume: 100 ml; Contrast route: INTRAVENOUS (IV); COMPARISON: CT ABDOMEN PELVIS W 09/08/2024 8:30 PM FINDINGS: Liver: Hepatic steatosis. Gallbladder and biliary ducts: Cholelithiasis. Gallbladder wall thickening. Pancreas: No CT evidence for acute pancreatitis. Spleen: No splenomegaly. Adrenal glands: No mass. Kidneys and ureters: Hypodense lesion in the left kidney, statistically likely to represent a cyst but indeterminate on this examination. Cannot exclude hyperdense cyst or solid lesion. Consider nonemergent followup. Additional low attenuation lesion in the left kidney too small to accurately characterize on CT. Stomach and bowel: No intestinal obstruction is evident. Fecalization of contents in small bowel loops suggests stasis. Colonic diverticula. Appendix: No evidence of appendicitis. Intraperitoneal space: No free air. Vasculature: No abdominal aortic aneurysm. Lymph nodes: No acute findings. Urinary bladder: The urinary bladder appears mildly thickened but is incompletely distended. Reproductive: No acute findings. Bones/joints: No pertinent acute abnormality seen. Soft tissues: Fat containing inguinal and umbilical hernias. IMPRESSION: 1. Cholelithiasis with gallbladder wall thickening suggesting cholecystitis. This may be further evaluated with right upper quadrant ultrasound if clinically warranted. 2. Thickening of the urinary bladder likely secondary to incomplete distension. Underlying cystitis, muscular hypertrophy, or neoplasm considered less likely but not excluded. Please correlate clinically. 3. Additional findings as above. Dictated and Authenticated by: Cyn Echols MD. Orderin Chip Aguilera MD
--- NOTE | 2024-10-17 08:15 | DI.US_ITS ---
Exam(s) US ABDOMEN LIMITED EXAM: US ABDOMEN LIMITED CLINICAL HISTORY: RUQ pain TECHNIQUE: Ultrasound abdomen performed using standard protocol. COMPARISON: CT CT ABDOMEN PELVIS W from 10/17/2024 FINDINGS: LIVER: Hepatic steatosis. Posterior portions of the liver are not well seen. No focal liver lesions are seen. GALLBLADDER: Multiple mobile stones noted. There is a 1.5 cm stone in the gallbladder neck which cou ld be impacted. The gallbladder wall appears mildly thickened at 4-5 millimeters. No pericholecysti c fluid identified. GUARDADO'S SIGN: Positive. BILIARY SYSTEM: No intrahepatic ductal dilation. Common duct measures 6 millimeters which is mildly dilated. The common duct did not appear dilated on the recent CT. Right KIDNEY: Normal size. No evidence of renal calculi. No evidence of hydronephrosis. No renal mas s or cyst identified. PANCREAS: Normal where visualized. ABDOMINAL AORTA AND IVC: Visualized portions normal caliber. ASCITES: None seen. IMPRESSION: Cholelithiasis with stone which may be impacted in the gallbladder neck. Mild gallbladder wall thick ening and positive sonographic Guardado sign, consistent with acute cholecystitis. DATA REPOSITORY:
[2024-10-17] MEDS: ACETAMINOPHEN 1,000 MG/100 ML BTL 400 MG IVPB (08:32)
[2024-10-17 08:35] LABS: Bilirubin Negative (Negative); Blood Moderate (Negative); Clarity Clear (Clear); Glucose Negative (Negative); Ketones Negative (Negative); Leukocyte Esterase Negative (Negative); Nitrite Negative (Negative); Urobilinogen 0.2 mg/dL (Up to 0.2); pH 6.5 (5-8)
[2024-10-17 08:46] LABS: Bacteria Rare HPF (Negative); C & S Indicated? No; Casts Negative LPF (Negative); Crystals Negative HPF (Negative); Epithelial Cells Rare HPF (Negative); Mucus Trace (Negative); WBC 0-2 HPF (0-5)
--- NOTE | 2024-10-17 10:56 | DI.VRAD_ITS ---
PROCEDURE INFORMATION: Exam: US Abdomen, Limited; Right Upper Quadrant Exam date and time: 10/17/2024 9:55 AM Age: 54 years old Clinical indication: Abdominal pain; Acute TECHNIQUE: Imaging protocol: Real time ultrasound of the abdomen with image documentation. Limited exam focused on the right upper quadrant. COMPARISON: US RENAL 03/19/2023 8:03 AM FINDINGS: Liver: Visualized portions of liver appear echodense with limited penetration, limited visualization through liver, suggesting diffuse fatty liver, hepatic steatosis. No gross intrahepatic bile duct dilatation demonstrated. Liver measured at 17.25 cm length. Gallbladder: Multiple echogenic foci within gallbladder with distal acoustic shadowing compatible with gallstones, cholelithiasis, a least 1 of which may be impacted toward gallbladder neck. Gallbladder wall appears mildly thickened measured perhaps 4-5 mm thickness. No obvious pericholecystic fluid demonstrated. Wind Plant Manager indicates positive sonographic Guardado's sign. Biliary ducts: Common duct measured at up to about 6.3 mm diameter, upper limits of normal to slightly dilated. Pancreas: Visualized portions of pancreas unremarkable. Right kidney: Right kidney measured at about 12 cm length. No dilated renal collecting system and no perirenal fluid demonstrated of visualized portions right kidney. Portal venous: Portal venous flow demonstrated as antegrade. IMPRESSION: 1. Multiple echogenic foci within gallbladder with distal acoustic shadowing compatible with gallstones, cholelithiasis, a least 1 of which may be impacted toward gallbladder neck. Gallbladder wall appears mildly thickened measured perhaps 4-5 mm thickness. Wind Plant Manager indicates positive sonographic Guardado's sign. Findings compatible with cholelithiasis with cholecystitis. 2. Diffuse fatty liver, hepatic steatosis. Dictated and Authenticated by: Abraham Millan MD. Orderin Liza Walters MD
--- NOTE | 2024-10-17 10:57 | SCONE_ITS ---
Date of service: 10/17/24 Time of Service: 10:57 Assessment and Plan Assessment and plan (1) Acute cholecystitis: Status: Acute Assessment and plan: 54 yo man with likely acute cholecystitis. Though there is no pericholecystic fluid and labwork is normal, he is tender on exam and the clinical picture is consistent with cholecystitis. HD stable and in no extremis. He does not want narcotics. I recommend cholecystectomy for definitive management. We had a detailed discussion about the pathophysiology of gallbladder disease, the function and purpose of the gallbladder and the reasons why we recommend removing it. The patient is in agreement with the indication for surgery, the possible risks but also the likely benefits of removing his gallbladder and wants to proceed with surgery. Overall plan: Laparoscopic cholecystectomy History of Present Illness Narrative: 54 yo man who started having abdominal pain yesterday after eating armenian food and some other greasy food by report. Pain persisted so he came to the ED for evlauation. CT and US showed wall thickening and gallstones - but no pericholecystic fluid. Labwork was unremarkable. He did not feel better after being monitored and continued to have RUQ pain subjectively and on exam, prompting surgical consult. He has had episodes of diverticulitis before. This is nothing like those. He has never had intra-abdominal surgery. PFSH All Active Problems (Updated 10/17/24 @ 10:51 by Romeo De Jesus MD) Acute cholecystitis (Acute) Abdominal pain, RUQ (Acute) Diverticulitis (Chronic) Hearing loss, left (Acute) TBI (traumatic brain injury) (Acute) Pt. states he did not have a TBI, but a was concussion Allergies (Acute) Right-sided sensorineural hearing loss (Acute) Low back pain (Acute) Urolithiasis (Chronic) History of narcotic addiction (Acute) does not want narcotics offered to him at any time IBS (irritable bowel syndrome) (Chronic) Peripheral polyneuropathy (Acute) Depression (Chronic 09/03/17) Medical History Hypothyroidism Diverticulosis of colon without diverticulitis per colonoscopy 09/14/09-Dr. Mcdermott Renal calculi Fracture of lumbar spine Gastroesophageal reflux disease (06/29/13) Migraines PTSD (post-traumatic stress disorder) (09/03/17) Surgical History History of shoulder surgery History of right knee surgery Family History Mother No problems noted. Father Diabetes Melanoma Heart disease Hyperlipidemia Sister Multiple sclerosis Substance abuse Brother Asthma Alcohol abuse Substance abuse Maternal Grandfather , 70 Alcohol abuse Cancer Paternal Grandfather , in his 50s Tuberculosis Maternal Grandmother , 72 Alcohol abuse Asthma Cancer Paternal Grandmother Cancer Son Asthma Daughter Depression Anxiety Social History Smoking/Tobacco Use Status: Never Tobacco: How many years used: 10 Second Hand Exposure: Yes Smoking risk assessment performed?: Yes Alcohol Intake: former Drug use: Current Sobriety Substance use type: former substance user Details: 26 years clean per pt Caregiver/Support person: No Household members: spouse and children Housing: house Communication Needs: None Do you need help understanding health information?: Never Pets and animals: Yes Pets and animals: dog(s) Sexually active: Yes Do you think of yourself as: straight/heterosexual Current gender identity: male What is your relationship status?: How often do you talk on the phone with friends or family?: once per week How often do you get together with friends or relatives?: once per week How often do you attend congregation or latter day services?: decline to answer Do you belong to any clubs or organized social groups?: no Panel score (0-1 are the most socially isolated patients): 1 What type of physical activity do you participate in: walking and other Details: PiYo Duration: < 15 minutes/day Frequency: 1-2 times per week Ilda/Baptist: None Special ilda needs: No Seatbelt use: always Helmet use: Yes Helmet use: sometimes Drive intox or ride w/intox driver guide: No Do you feel safe at home: Yes Do you feel safe in your relationship?: Yes Exam Narrative Exam Narrative: Gen: Non-toxic, comfortable and interactive Neuro: Alert and oriented x3 Psych: Good mood and affect. Good insight and understanding into condition. Chest: Non-labored breathing, no wheezing, no visible shortness of breath. Heart: Regular Abdomen: Soft, nondistended, there is focal right upper quadrant tenderness with a positive Guardado sign. Results Last Vital Signs Temp 98.2 F 10/17/24 05:53 Pulse 51 L 10/17/24 10:50 Resp 17 10/17/24 09:31 BP 146/101 H 10/17/24 09:31 Pulse Ox 96 10/17/24 10:50 Labs 10/17/24 06:10 10/17/24 06:10 Labs: Laboratory Results - last 24 hr 10/17/24 10/17/24 06:10 08:27 WBC 8.83 RBC 5.01 Hgb 15.0 Hct 43.4 MCV 87 MCH 29.9 MCHC 34.6 RDW 12.8 Plt Count 276 MPV 9.4 Immature Gran % 0.1 Neutrophils % 54.6 Lymphocytes % 35.6 Monocytes % 7.9 Eosinophils % 1.1 Basophils % 0.7 Nucleated RBC % 0.0 Absolute Neutrophils 4.82 Absolute Lymphocytes 3.14 Absolute Monocytes 0.70 Absolute Eosinophils 0.10 Absolute Basophils 0.06 Sodium 141 Potassium 3.8 Chloride 105 Carbon Dioxide 23.5 Anion Gap 12.5 H BUN 26 H Creatinine 1.2 Est GFR (CKD-EPI 2020) 72.31 Glucose 118 H Calcium 10.5 H Magnesium 1.7 L Total Bilirubin 0.5 AST 29 ALT 79 H Alkaline Phosphatase 95 Troponin I 6 Total Protein 7.3 Albumin 3.6 Lipase 29 Urine Color Yellow Urine Clarity Clear Urine pH 6.5 Ur Specific [place] 1.010 Urine Protein Negative Urine Ketones Negative Urine Blood Moderate H Urine Nitrite Negative Urine Bilirubin Negative Urine Urobilinogen 0.2 Ur Leukocyte Esterase Negative Urine RBC 10-20 H Urine WBC 0-2 Ur Epithelial Cells Rare Urine Crystals Negative Urine Bacteria Rare Urine Casts Negative Urine Mucus Trace Ur Culture Indicated? No Urine Glucose Negative
[2024-10-17] MEDS: PIPERACILLIN/TAZO 3.375 GM in Normal Saline 50 ML IVPB ×2 (11:41→18:17)
--- NOTE | 2024-10-17 12:06 | W.PC.ACHO ---
Registration Status: Primary Language: Preferred Language: ED Information & Data Chief Complaint Abd Prob 10/17/24 05:53 Chief Complaint Abd Prob 10/17/24 05:50 Triage Note PT states that he has RUQ 10/17/24 05:50 ABD pain that started at 0200. PT has nausea and vomiting. Medical / Surgical History (Last Reviewed 10/17/24 @ 05:52 by Willy Saunders MD) Hypothyroidism Diverticulosis of colon without diverticulitis Renal calculi Fracture of lumbar spine Gastroesophageal reflux disease (06/29/13) Migraines PTSD (post-traumatic stress disorder) (09/03/17) (Last Reviewed 10/17/24 @ 05:52 by Willy Saunders MD) History of shoulder surgery History of right knee surgery Most Recent Vital Signs Temperature 36.8 C 10/17/24 05:53 Temperature Source Oral 10/17/24 05:53 Pulse 53 L 10/17/24 11:46 Pulse 68 10/17/24 09:31 Respiratory Rate 17 10/17/24 09:31 Blood Pressure 145/99 H 10/17/24 11:46 Blood Pressure Mean 112 10/17/24 11:46 Pulse Oximetry 98 10/17/24 11:46 Oxygen Delivery Method Room Air 10/17/24 05:53 Oxygen Flow Rate 0 10/17/24 05:50 Pain Level 5 10/17/24 08:32 Allergies prochlorperazine Adverse Reaction (Severe, Verified 10/17/24 05:55) Other (See Comment) Anxiety/akathisia erythromycin base (Erythromycin Base) Adverse Reaction (Intermediate, Verified 10/17/24 05:55) Vomiting cigarette smoke Allergy (Uncoded 10/17/24 05:55) Other (See Comment) Active Medications Generic Name Dose Route Start Last Admin Trade Name Freq PRN Reason Stop Dose Admin Ringer's Solution 1,000 mls @ 125 mls/hr 10/17/24 06:00 10/17/24 06:20 IV 125 mls/hr INFUSION GARETT Administration Piperacillin Sod/Tazobactam 50 mls @ 100 mls/hr 10/17/24 11:15 10/17/24 11:41 Sod 3.375 gm/ Sodium Chloride IVPB 10/17/24 13:00 100 mls/hr Q6H GARETT Administration Sodium Chloride 0 ml 10/17/24 08:30 10/17/24 11:57 Normal Saline Flush 10 Ml Syr IVP Not Given BID GARETT IV IV Catheter Type [Left Saline Lock Antecubital] IV Catheter Gauge [Left 18 Antecubital] Diet Orders Category Date Time Status Nothing Per Oral [DIET] Nutrition 10/17/24 Breakfast Active npo [Nothing Per Oral] [DIET] Nutrition 10/17/24 Breakfast Active Diagnostics 10/17/24 10/17/24 Range/Units 08:27 06:10 WBC 8.83 (4.4-10.8) 10^3/uL RBC 5.01 (4.36-5.78) 10^6/uL Hgb 15.0 (13.5-17.5) g/dL Hct 43.4 (40.0-50.0) % MCV 87 (80-95) fL MCH 29.9 (27.0-33.0) pg MCHC 34.6 (32.0-36.0) % RDW 12.8 (11.8-14.1) % Plt Count 276 (130-400) 10^3/uL MPV 9.4 (8.0-11.0) fL Immature Gran % 0.1 % Neutrophils % 54.6 % Lymphocytes % 35.6 % Monocytes % 7.9 % Eosinophils % 1.1 % Basophils % 0.7 % Nucleated RBC % 0.0 (0.0-0.3) % Absolute Neutrophils 4.82 (1.2-6.7) 10^3/uL Absolute Lymphocytes 3.14 (1.2-3.4) 10^3/uL Absolute Monocytes 0.70 (0.1-0.8) 10^3/uL Absolute Eosinophils 0.10 (0.0-0.7) 10^3/uL Absolute Basophils 0.06 (0.0-0.2) 10^3/uL Sodium 141 (136-145) mmol/L Potassium 3.8 (3.5-5.1) mmol/L Chloride 105 (98-107) mmol/L Carbon Dioxide 23.5 (21.0-32.0) mmol/L Anion Gap 12.5 H (3-11) mmol/L BUN 26 H (7-18) mg/dL Creatinine 1.2 (0.70-1.30) mg/dL Est GFR (CKD-EPI 2021) 72.31 (mL/min/1.73m2) Glucose 118 H (74-106) mg/dL Calcium 10.5 H (8.5-10.1) mg/dL Magnesium 1.7 L (1.8-2.4) mg/dL Total Bilirubin 0.5 (0.2-1.0) mg/dL AST 29 (15-37) U/L ALT 79 H (16-63) U/L Alkaline Phosphatase 95 (46-116) U/L Troponin I 6 (<or=76) ng/L Total Protein 7.3 (6.4-8.2) g/dL Albumin 3.6 (3.4-5.0) g/dL Lipase 29 (<78) U/L Urine Color Yellow (Yellow) Urine Clarity Clear (Clear) Urine pH 6.5 (5-8) Ur Specific [place] 1.010 (1.005-1.025) Urine Protein Negative (Neg-Trace) mg/dL Urine Ketones Negative (Negative) mg/dL Urine Blood Moderate H (Negative) Urine Nitrite Negative (Negative) Urine Bilirubin Negative (Negative) Urine Urobilinogen 0.2 (Up to 0.2) mg/dL Ur Leukocyte Esterase Negative (Negative) Urine RBC 10-20 H (0-2) HPF Urine WBC 0-2 (0-5) HPF Ur Epithelial Cells Rare (Negative) HPF Urine Crystals Negative (Negative) HPF Urine Bacteria Rare (Negative) HPF Urine Casts Negative (Negative) LPF Urine Mucus Trace (Negative) Ur Culture Indicated? No Urine Glucose Negative (Negative) mg/dL Intake and Output - 24 Hour Total 10/17/24 05:46 thru 10/17/24 08:50 Intake Total 100 Balance 100 Weight 105.4 kg Intake: IV 100 Falls Risk Assessment History of Falls No History 10/17/24 05:53 Contributing Factors No Factors 10/17/24 05:53 Ambulatory Aids Independent 10/17/24 05:53 Tubes/Lines None 10/17/24 05:53 Gait Evaluation No gait disturbance 10/17/24 05:53 Cognition No cognitive impairment 10/17/24 05:53 Fall Total Score 0 10/17/24 05:53 Level of Risk Standard/Low Risk 10/17/24 05:53 Problems (Last Reviewed 10/17/24 @ 05:52 by Willy Saunders MD) Acute cholecystitis (Acute) v v v v v v v v v Sending and/or Receiving Nurses: Please use comment section below to note any information pertinent to the patient hand-off not included above. Information / Comments: Patient primary complaint RUQ pain. IV Toradol administered in ED. Zosyn currently running, LR stopped at 512mL as not compatible with Zosyn. Independent with mobility. Anticipated to go to surgery for acute cholecystitis. Patient of Dr. Ratliff. LR running at 125mL/hr. Patient axox4, all other systems WDL. Report received from: Autumn RN (ED) 11:52
--- NOTE | 2024-10-17 12:32 | W.ANESPRE ---
General Info Date of Service Date Performed: 10/17/24 Height: 6 ft Weight: 105.4 kg Body Mass Index (BMI): 31.5 Surgical Procedure: Operation Date: 10/17/24 13:00 Proposed Procedure Side Surgeon p Cholecystectomy Laparoscopic Robert Ratliff MD Actual Procedure Side Surgeon p Cholecystectomy Laparoscopic Robert Ratliff MD Pre-Op Diagnosis Post-Op Diagnosis Acute cholecystitis Meds Allergies and Home Medications Allergies Allergy/AdvReac Type Severity Reaction Status Date / Time prochlorperazine AdvReac Severe Other (See Verified 10/17/24 05:55 Comment) erythromycin base AdvReac Intermediate Vomiting Verified 10/17/24 05:55 (Erythromycin Base) cigarette smoke Allergy Other (See Uncoded 10/17/24 05:55 Comment) Home Medication ?Medication ?Instructions ?Recorded cholecalciferol (vitamin D3) 25 2 cap PO DAILY 09/09/15 mcg (1,000 unit) capsule (Vitamin D3) magnesium 250 mg tablet 1,000 mg PO DAILY 02/23/19 vitamin B complex (B Complex 1 1 tab PO DAILY 02/23/19 tablet) albuterol sulfate 90 mcg/actuation 2 puff inhalation Q6H PRN 04/27/19 aerosol inhaler (Ventolin HFA) shortness of breath or wheezing #8.5 grams acetaminophen 325 mg tablet 650 mg PO ONCE PRN 01/08/20 (Tylenol) ibuprofen 200 mg tablet 200 mg PO Q6H PRN 08/17/21 tamsulosin 0.4 mg capsule 0.4 mg PO DAILY #90 caps 06/28/22 THC 5 mg .Route HS PRN 03/25/24 desvenlafaxine succinate 100 mg 100 mg PO DAILY 03/25/24 tablet,extended release 24 hr desvenlafaxine succinate 50 mg 50 mg PO DAILY 03/25/24 tablet,extended release 24 hr levothyroxine 75 mcg tablet 75 mcg PO DAILY 03/25/24 psyllium husk 0.52 gram capsule 1.04 g PO DAILY 04/14/24 (Fiber (psyllium husk)) Current Visit Medications: Current Medications Generic Name Dose Route Start Last Admin Trade Name Freq PRN Reason Stop Dose Admin Ringer's Solution 1,000 mls @ 125 mls/hr 10/17/24 06:00 10/17/24 06:20 IV 125 mls/hr INFUSION GARETT Administration Ringer's Solution 1,000 mls @ 125 mls/hr 10/17/24 11:15 IV INFUSION GARETT Piperacillin Sod/Tazobactam 50 mls @ 100 mls/hr 10/17/24 11:15 10/17/24 11:41 Sod 3.375 gm/ Sodium Chloride IVPB 10/17/24 13:00 100 mls/hr Q6H GARETT Administration Acetaminophen 1,000 mg in 100 mls @ 400 mls/hr 10/17/24 14:00 Ofirmev IVPB Q6H GARETT Piperacillin Sod/Tazobactam 50 mls @ 100 mls/hr 10/17/24 18:00 Sod 3.375 gm/ Sodium Chloride IVPB Q6H [facility] IV Miscellaneous Supplies 1 each 10/17/24 06:00 Iv Access IV DIRECTED [facility] IV Miscellaneous Supplies 1 each 10/17/24 11:15 Iv Access IV DIRECTED [facility] Ondansetron HCl 4 mg 10/17/24 11:05 Ondansetron 4 Mg/2 Ml Vial IVP Q4H PRN PRN Sodium Chloride 0 ml 10/17/24 05:59 Normal Saline Flush 10 Ml Syr IVP PRN PRN Sodium Chloride 0 ml 10/17/24 08:30 10/17/24 11:57 Normal Saline Flush 10 Ml Syr IVP Not Given BID GARETT Sodium Chloride 0 ml 10/17/24 05:59 Normal Saline 10 Ml Vial IJ DIRECTED PRN PFSH Active Problems Active Problems: Problem Status Onset Code Acute cholecystitis Acute K81.0 Abdominal pain, RUQ Acute R10.11 Diverticulitis Chronic K57.92 Hearing loss, left Acute H91.92 TBI (traumatic brain injury) Acute S06.9X9A Allergies Acute T78.40XA Right-sided sensorineural hearing loss Acute H90.5 Low back pain Acute M54.5 Urolithiasis Chronic N20.9 History of narcotic addiction Acute F11.21 IBS (irritable bowel syndrome) Chronic K58.9 Peripheral polyneuropathy Acute G62.9 Depression Chronic 20/18 F32.9 Medical History Medical History Hypothyroidism Diverticulosis of colon without diverticulitis per colonoscopy 09/14/09-Dr. 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 per pt Vital Signs and Lab Results Vital Signs Most Recent Vital Signs in EMR: Most Recent Vital Signs Temp Pulse Resp BP Pulse Ox 36.7 C 72 16 131/99 H 98 10/17/24 12:12 10/17/24 12:12 10/17/24 12:12 10/17/24 12:12 10/17/24 12:12 Lab Results 10/17/24 06:10 10/17/24 06:10 Blood Type / Crossmatch: No Data to Display Complete Blood Count: White Blood Count 8.83 10^3/uL (4.4-10.8) 10/17/24 06:10 Red Blood Count 5.01 10^6/uL (4.36-5.78) 10/17/24 06:10 Hemoglobin 15.0 g/dL (13.5-17.5) 10/17/24 06:10 Hematocrit 43.4 % (40.0-50.0) 10/17/24 06:10 Platelet Count 276 10^3/uL (130-400) 10/17/24 06:10 Complete Metabolic Panel: Sodium 141 mmol/L (136-145) 10/17/24 06:10 Potassium 3.8 mmol/L (3.5-5.1) 10/17/24 06:10 Chloride 105 mmol/L (98-107) 10/17/24 06:10 Carbon Dioxide 23.5 mmol/L (21.0-32.0) 10/17/24 06:10 BUN 26 mg/dL (7-18) H 10/17/24 06:10 Creatinine 1.2 mg/dL (0.70-1.30) 10/17/24 06:10 Est GFR (CKD-EPI 2020) 72.31 (mL/min/1.73m2) 10/17/24 06:10 Magnesium 1.7 mg/dL (1.8-2.4) L 10/17/24 06:10 Calcium 10.5 mg/dL (8.5-10.1) H 10/17/24 06:10 Albumin 3.6 g/dL (3.4-5.0) 10/17/24 06:10 Glucose 118 mg/dL (74-106) H 10/17/24 06:10 Liver Function Panel: Alanine Aminotransferase (ALT/SGPT) 79 U/L (16-63) H 10/17/24 06:10 Aspartate Amino Transf (AST/SGOT) 29 U/L (15-37) 10/17/24 06:10 Coagulation Panel: No Data to Display Cardiac Panel: Troponin I 6 ng/L (<or=76) 10/17/24 Arterial Blood Gas: No Data to Display Venous Blood Gas: No Data to Display Pancreas Panel: Lipase 29 U/L (<78) 10/17/24 06:10 Thyroid Panel: No Data to Display Infectious Disease: No Data to Display Blood Cultures: No Data to Display Toxicology Panel: No Data to Display Imaging and Studies Imaging and Studies Study information below may be from another EMR and interpreted by another provider. Please see original notes in EMR for more complete details. EKG Summary: EKG PATIENT NAME: Claudette Judge UNIT #: [id number] ORDERING PROVIDER: Sherine Aggarwal M.D. PRIMARY CARE PROVIDER: ASPEN BOYLE DATE/TIME OF SERVICE: 10/17/24 0640 : 1970 PERFORMING LOCATION: ER APPROVED REPORT Exam: Resting ECG Reason for Exam: abdominal pain Patient Location: E HR:51 bpm ECG Measurements Heart Rate 51 AXIS OR 221 P 52 QRSd 113 QRS -30 QT 433 T33 QTc 400 Conclusion Sinus bradycardia...rate< 60 Prolonged OR interval...OR >210, V-rate 50- 90 I have reviewed and interpreted ECG and agree with software generated interpretation. <Electronically signed by SHERINE AGGARWAL MD in OV> E-Sign Date: 10/17/24 E-Sign Time: 0648 Echocardiogram Summary: Patient Name: CLAUDETTE JUDGE Unit #: [id number] Loc: DI Ordering Provider: Ebenezer Rodríguez Status: REG I Primary Care Provider: Ebenezer Rodríguez Date of Exam: 01/14/19 Sex: M : 1970 Age: 48 Exam(s) a US:US echocardiogram *[facility]* * Cardiology* [address] [place] [address] Date of study: 01/14/2019 Transthoracic Echocardiography M-mode, complete 2D, complete spectral Doppler, and color Doppler *STUDY CONCLUSIONS* Summary: 1. Left ventricle: The cavity size was normal. Wall thickness was normal. Systolic function was normal. The estimated ejection fraction was 60-65%. Wall motion was normal; there were no regional wall motion abnormalities. 2. Mitral valve: Mildly thickened leaflets anterior. There was mild regurgitation. 3. Right ventricle: The cavity size was normal. Wall thickness was normal. Systolic function was normal. *PATIENT PRESENTATION* Height: 185.4cm (73in ) S/D Pressure: 105 / 72 Weight: 86.2kg (189.6lb ) BSA: 2.11m^2 Test start time: 07:50 AM. Test stop time: 08:45 AM. PERFORMING Unknown PERFORMING [facility] SERVER SERVICE ASSISTANT Jessica Kitchen RT (Victorina)(CT), [facility] CONSULTING Ebenezer Rodríguez ORDERING Ebenezer Rodríguez REFERRING Ebenezer Rodríguez *PROCEDURE DATA* Procedure information: This study was interpreted by [facility]. Pertinent images and digital data are archived for permanent storage and are available for subsequent review. No prior study was available for comparison. Study status: Routine. Transthoracic echocardiography. M-mode, complete 2D, complete spectral Doppler, and color Doppler. A Transthoracic Echocardiogram was performed. Scanning was performed from the parasternal, apical, subcostal, and suprasternal notch acoustic windows. Images were obtained using an [id number] cardiac ultrasound machine. Image quality was adequate. Study completion: The patient tolerated the procedure well. There were no complications. History: PMH: Syncope and collapse r55. *CARDIAC ANATOMY* Left ventricle: The cavity size was normal. Wall thickness was normal. Systolic function was normal. The estimated ejection fraction was 60-65%. Wall motion was normal; there were no regional wall motion abnormalities. Diastolic parameters were normal. Aortic valve: Trileaflet; normal thickness leaflets. Mobility was not restricted. Doppler: Transvalvular velocity was within the normal range. There was no stenosis. There was no significant regurgitation. VTI ratio of LVOT to aortic valve: 0.75. Valve area (VTI): 2.5cm^2. Indexed valve area (VTI): 1.2cm^2/m^2. Peak velocity ratio of LVOT to aortic valve: 0.78. Valve area (Vmax): 2.7cm^2. Indexed valve area (Vmax): 1.3cm^2/m^2. Mean velocity ratio of LVOT to aortic valve: 0.75. Valve area (Vmean): 2.5cm^2. Indexed valve area (Vmean): 1.2cm^2/m^2. Mean gradient (S): 3.9mm Hg. Peak gradient (S): 6.3mm Hg. Aorta: Aortic root: The aortic root was normal in size. Mitral valve: Mildly thickened leaflets anterior. Mobility was not restricted. Doppler: Transvalvular velocity was within the normal range. There was no evidence for stenosis. There was mild regurgitation. Valve area by pressure half-time: 3.1cm^2. Indexed valve area by pressure half-time: 1.5cm^2/m^2. Left atrium: The atrium was normal in size. Right ventricle: The cavity size was normal. Wall thickness was normal. Systolic function was normal. Pulmonic valve: Structurally normal valve. Doppler: Transvalvular velocity was within the normal range. There was no evidence for stenosis. There was trivial regurgitation. Peak gradient (S): 2.8mm Hg. Tricuspid valve: Structurally normal valve. Doppler: Transvalvular velocity was within the normal range. There was no evidence for stenosis. There was trivial regurgitation. Pulmonary artery: Pulmonary systolic pressure was within the normal range, in the range of 25mm Hg to 30mm Hg. Right atrium: The atrium was normal in size. Pericardium: There was no pericardial effusion. Systemic veins: Inferior vena cava: Well visualized. The vessel was patent and normal in size. The respirophasic diameter changes were in the normal range (greater than or equal to 50%). Baseline ECG: Normal sinus rhythm. Measurements Left ventricle Value Reference LV ID, ED, PLAX 4.6 cm 3.5 - 6.0 LV ID, ES, PLAX 3.3 cm 2.1 - 4.0 LV PW thickness, ED, PLAX 1.0 cm LV end-diastolic volume, 1-p A2C 106 ml LV ejection fraction, 1-p A2C 64 % LV end-diastolic volume, 1-p A4C 107 ml LV ejection fraction, 1-p A4C 65 % LV e', lateral 0.136 m/sec LV E/e', lateral 5 LV e', medial 0.088 m/sec LV E/e', medial 7 LV e', average 0.112 m/sec LV E/e', average 6 Ventricular septum Value Reference IVS thickness, ED, PLAX 1.0 cm LVOT Value Reference LVOT ID, A-P 2.1 cm LVOT area 3.4 cm^2 LVOT peak velocity, S 0.97 m/sec LVOT mean velocity, S 0.71 m/sec LVOT VTI, S 19.5 cm LVOT peak gradient, S 3.8 mm Hg LVOT mean gradient, S 2.3 mm Hg Stroke volume (SV), LVOT DP 66 ml Stroke index (SV/bsa), LVOT DP 31 ml/m^2 Aortic valve Value Reference Aortic valve peak velocity, S 1.3 m/sec Aortic valve mean velocity, S 0.9 m/sec Aortic valve VTI, S 26.0 cm Aortic mean gradient, S 3.9 mm Hg Aortic peak gradient, S 6.3 mm Hg VTI ratio, LVOT/AV 0.75 Aortic valve area, VTI 2.5 cm^2 Velocity ratio, peak, LVOT/AV 0.78 Aortic valve area, peak velocity 2.7 cm^2 Velocity ratio, mean, LVOT/AV 0.75 Aortic valve area, mean velocity 2.5 cm^2 Aortic valve area/bsa, mean velocity 1.2 cm^2/m^2 Aorta Value Reference Aortic root ID, ED 2.9 cm Ascending aorta ID, A-P, S 2.9 cm Left atrium Value Reference LA ID, A-P, ES 2.7 cm LA ID/bsa, A-P 1.3 cm/m^2 <=2.2 LA volume/bsa, ES, 1-p A4C 18 ml/m^ Carotid Artery Summary:: Patient Name: CLAUDETTE JUDGE Unit #: [id number] Loc: DI Ordering Provider: CRISTOPHER PIERRE M.D. Status: [facility] Primary Care Provider: DANTE ORDONEZ M.D. Date of Exam: 02/04/14 Sex: M : 1970 Age: 43 Exam(s) [id number] CT:CTA Brain [id number] CT:CTA Neck/Carotid SYMPTOMS/DIAGNOSIS: VERTIGO, CENTRAL CT ANGIOGRAM OF THE BRAIN AND NECK: Comparison is made with CT of the neck dated 05/11/13. Images were performed from the aortic arch through the vertex during dynamic bolus infusion of IV contrast. The carotid and vertebral arteries are normal in diameter. There is no evidence of dissection. The [place] vasculature also appears normal. There are no abnormal areas of enhancement. There is no evidence of aneurysm or stenosis. IMPRESSION: Negative CT angiogram of the head and neck. CC: JESSE SIMON, [facility] Dictated By: JOSE LUIS GELLER M.D. [id number] <Electronically signed by JOSE LUIS GELLER M.D.> 02/05/14 0718 Transcribed By: Camden Upton 02/04/14 1606 Technologist: Nadege Cantu This is privileged, confidential information intended only for the provider named. Any use or distribution by any person other than this provider is strictly prohibited. If you receive this report in error, please notify us immediately at [phone] and return the original report to us at the address above. Thank-you. Anesthesia Assessment and Plan Anesthesia History Personal History: No History of Anesthesia Complications Family History: No Family History of Anesthesia Complications Exercise Tolerance Exercise Tolerance: Metabolic Equivalents>4 Pertinent Negatives Pertinent Negatives: No Major Pulmonary Symptoms or Complaints and No History of CVA/TIA Cardiac & Pulmonary Exam Cardiac Exam: Normal S1/S2 Heart Sounds Pulmonary Exam: Clear Bilateral Breath Sounds Implantable Cardiac Device Does patient have a Pacemaker or an ICD?: No Airway Exam Known Difficult Airway: No Mallampati Class: 2 Mouth Opening: Normal (> 3cm) Thyromental Distance: Greater than 3 cm Neck Range of Motion: Full ROM Neck Circumference: Normal Teeth Condition: Normal Dentition ASA Classification ASA Score: ASA 2 Emergency Case?: Yes NPO Status NPO Status: NPO Clears >2 hours, Solids >8 hours Anesthesia Plan Resuscitation Status: Full Code Anesthesia Technique: General Anesthesia Airway Planned: Endotracheal Tube Monitors Used: Standard Monitors Preoperative Comments:: Discussed need for another ECHO prior to further elective surgery, not elective at this time. Discussed wish to avoid opioids as best as possible. Agrees to PACU opioids.
[2024-10-17] MEDS: Lactated Ringers 1,000 ML 30 ML IV (13:07)
[2024-10-17] MEDS: Heparin 5,000 UNITS/ML VIAL 5000 UNITS SC (13:25)
[2024-10-17] MEDS: Bupivacaine 0.25% Pres-Free 30 ML VIAL (13:42)
[2024-10-17] MEDS: Bupivacaine 0.25% Pres-Free 10 ML VIAL (13:42)
[2024-10-17] MEDS: Normal Saline 20 ML VIAL (13:43)
[2024-10-17] MEDS: Bupivacaine LIPOSOME/PF 133 MG/10 ML VIAL IJ (13:43)
--- NOTE | 2024-10-17 14:00 | GB_PTH ---
PATIENT: Som Judge LOC: U#:[id number] AGE/SX: 54/M ROOM: [id number] RE10/17/[address]: Robert Ratliff : 1970 BED: A DIS: 10/17/2024 SPEC #: [id number] RECD: 10/19/24 13:07 STATUS: BARB REQ #: [id number] LIZBET: 10/17/24 14:[address]: Robert Ratliff DEPT: Surgical Specimen RECD BY: Anu Razo ENTERED: 10/19/24 13:07 SP TYPE: GB OTHR DR: Sb Jones Tissues: 1 - GALLBLADDER Procedures: GROSS AND MICRO LEVEL 3 Comments: [id number]
--- NOTE | 2024-10-17 14:30 | W.PM.OP ---
Operative Note Operative Note Refer to Anesthesia Record Procedure Description: Procedures performed: 1. Laparoscopic cholecystectomy 2. Bilateral Laparoscopic TAP block 3. Primary umbilical hernia repair Pre-op diagnosis: Acute Cholecystitis Postoperative diagnosis: Same Surgeon: Tamir Ratliff Anesthesia: Adiel Customer Supply Coordinator: Cece Indication for procedure: 54 yo man with acute RUQ pain in setting of gallstones and radiographic signs of cholecystitis FINDINGS: Mildly inflamed GB with palpable stones, pericholecystic fluid in the cystic place and between liver and GB. Normal biliary anatomy. Posterior arterial branch. Specimens: 1. Gallbladder Complications: None Blood loss: 20 cc Urine output: Not measured Implants/drains: None Procedure in detail: Patient gave written consent and was in agreement with the indications, the likely benefits as well as the potential risks of surgery. They were taken back to the operating room where anesthesia was administered and was tolerated well. We positioned the patient supine on the operating room table, arms out and we then prepped and draped in sterile fashion. We confirmed DVT prophylaxis as well as antibiotics had been administered. When we were all in agreement with our timeout we started the procedure. Local anesthetic was injected at the umbilicus. The patient has a small, reducible, primary umbilical hernia with approximately 1cm fascial defect. A small stab incision was made within the umbilicus and a 5 mm trocar was used to enter the abdominal cavity through the existing defect. Insufflation was performed which was tolerated well. 2 more trocars were placed under direct visualization in the right hemiabdomen. Local anesthetic was also given in each of the sites. A 12 mm port was placed in the epigastrium under visualization. I performed a bilateral TAP block under direct visualization with a combination of Exparel, Marcaine and injectable saline. The fundus of the gallbladder was grasped and retracted towards the patient's left shoulder cephalad. This nicely exposed the biliary plate and the relevant anatomy. A combination of blunt and electrocautery dissection was performed isolating the cystic duct and the cystic artery. The entire cystic plate was cleared off confirming only 2 structures seen going into the gallbladder. These were clipped and divided. Posteriorly, a small arterial branch was identified and I also clipped and divided this. I then removed the rest of the gallbladder off the liver bed using electrocautery. It was placed in an Endo Catch bag and removed from the abdominal cavity. The specimen was passed off the back table and placed in formalin. I then checked the gallbladder fossa for any bile leaking or any bleeding. Hemostasis was excellent and there was no evidence of any bile leaking from the bed. I used the epigastric port to visualize the umbilical hernia defect. I excised the pre-peritoneal fat that was herniating through the defect. I then passed Vicryl suture through healthy fascia on each side under visualization and closed the defect nicely and without any noticeable tension. The 12 mm port site was then closed with 0 Vicryl in the fascia. I rechecked for hemostasis 1 last time and it remained excellent. We released pneumoperitoneum. I removed the 5 mm trocars. The skin was closed with running Monocryl and Dermabond was placed on top of each site. The patient tolerated the procedure well. The sponge, instruments and sharps counts were correct x3 at the end of the procedure. He was extubated and taken to the PACU in hemodynamically stable condition. Date of Procedure: 10/17/24
--- NOTE | 2024-10-17 14:41 | W.ANESPOSTOP ---
Postoperative Evaluation Date, Time and Location Date Performed: 10/17/24 Time Performed: 14:41 Patient Location: PACU Vital Signs Most Recent Imported Vital Signs: Most Recent Vital Signs Just reviewed in PACU and stabe at 1442. Please see PACU RNs documentation. Pain Score Most Recent Pain Score: Most Recent Pain Score Pain Level 7 10/17/24 12:15 Assessment Mental Status: Arousable with meaningful communication Airway and Respiratory Function: Patent airway with normal (patient baseline) respiratory exam Cardiovascular Function: Hemodynamically Stable Hydration Status: Adequately Hydrated Nausea & Vomiting: No Nausea or Vomiting Pain: Pain is tolerable per patient Peripheral Nerve Block: Patient did not receive a nerve block
--- NOTE | 2024-10-17 14:47 | DSE_ITS ---
Date of service: 10/17/24 Time of Service: 14:47 DS: Diagnosis Discharge Diagnosis (1) Acute cholecystitis: Status: Acute Asessment and Plan: GB removed as planned and without complications. Can be DCed home. Discharge Plan Disposition Patient Disposition: Home Condition: Good Discharge Details Reason For Visit: acute cholecystitis Admit Date/Time: 10/17/24 11:05 Admit Provider: Robert Ratliff Attending Provider: Robert Ratliff Primary Care Provider: Sb Jones Hospital Course Hospital Course: 54-year-old man presented to the hospital with acute cholecystitis. He was taken to operating room where a laparoscopic cholecystectomy was performed. His procedure went well, without complications, and he was discharged home. Home Meds and New Rx's Prescriptions: No Action vitamin B complex [B Complex 1] Tablet 1 tab PO DAILY magnesium 250 mg tablet 1,000 mg PO DAILY albuterol sulfate [Ventolin HFA] 90 mcg/actuation HFA aerosol inhaler 2 puff IH Q6H PRN (Reason: shortness of breath or wheezing) Qty: 8.5 0RF tamsulosin 0.4 mg capsule 0.4 mg PO DAILY Qty: 90 3RF psyllium husk [Fiber (psyllium husk)] 0.52 gram capsule 1.04 g PO DAILY cholecalciferol (vitamin D3) [Vitamin D3] 1,000 UNIT capsule 2 cap PO DAILY acetaminophen [Tylenol] 325 mg Tablet 650 mg PO ONCE PRN ibuprofen 200 mg Tablet 200 mg PO Q6H PRN THC 5 mg .Route HS PRN desvenlafaxine succinate 50 mg tablet extended release 24 hr 50 mg PO DAILY desvenlafaxine succinate 100 mg tablet extended release 24 hr 100 mg PO DAILY Patient Comments: Take 1 tablet once a day levothyroxine 75 mcg tablet 75 mcg PO DAILY Discharge Instructions Additional Instructions: INSTRUCTIONS: Incisions: Keep clean and dry but they do not need to be covered. It is okay to shower but no tub bathing for 1 week. You can peel the glue off after 1 week. Activity: As tolerated. There are no restrictions, but if it hurts, go easier on your body. Diet: Low fat/no grease diet for the next couple of weeks and then slowly introduce regular food, without restriction, as tolerated. Medications: Resume any/all of your usual/regular home medications. Follow-up: If you are having any issues or concerns call the surgery office immediately. If you want to have a routine follow-up that is perfectly fine and you can call and schedule one. If everything is otherwise going well, you do not need to follow-up. Pain control: Take Tylenol, 1000 mg, every 6 hours on a schedule for the next 3 days. You can use ibuprofen in addition to Tylenol if needed. Ice can be used as needed. No narcotics. Overall: Symptoms should not be worsening. If you have any difficulty breathing or you have return of symptoms of brought you to the hospital or your pain is otherwise worsening each day and you should call the doctor's office or come into the hospital to be checked out. Activity:: Activity as Tolerated Equipment/Supplies:: No Equipment Needed Diet:: see instructions DS: Summary Time Spent with Patient providing and/or coordinating discharge services: Less than 30 minutes Status at Discharge Functional status at discharge: independent ambulation Overall status at discharge: patient is progressing back to baseline Mental Status: mental status grossly normal Speech and Movement: speech and movement normal Mood: congruent mood Affect: normal affect Quality:SDOH Health Related Social Needs: No Data to Display Exam Psych Mental Status: mental status grossly normal Speech and Movement: speech and movement normal Mood: congruent mood Affect: normal affect DS: Data Vitals/I&O Vitals and I&O: Vital Signs Temperature 97.2 F L 10/17/24 14:35 Temperature Source Temporal Artery Scan 10/17/24 12:12 Pulse 57 L 10/17/24 14:40 Pulse Rhythm Regular 10/17/24 12:15 Pulse 60 10/17/24 14:40 Respiratory Rate 24 10/17/24 14:40 Respiratory Effort Normal 10/17/24 12:15 Respiratory Depth Normal 10/17/24 12:15 Respiratory Pattern Normal 10/17/24 12:15 Blood Pressure 115/84 10/17/24 14:40 Blood Pressure Mean 92 10/17/24 14:40 Pulse Oximetry 95 10/17/24 14:40 Respiratory End-tidal CO2 32 10/17/24 14:40 Oxygen Delivery Method Nasal Cannula 10/17/24 14:35 Oxygen Flow Rate 2 10/17/24 14:35 Pain Level 7 10/17/24 12:15 Comment RN notified of bp 10/17/24 12:12 Intake & Output 10/16/24 10/17/24 10/17/24 23:59 11:59 23:59 Intake Total 100 / 4265.235 2480.917 / 1647.917 Output Total Balance 100 / 1633.498 0079.917 / 1627.917 Weight 232 lb 5.875 oz 232 lb 5.875 oz Intake: IV 100 / 8778.963 4147.917 / 1647.917 Output: Estimated Blood Loss Other: Emesis Description None Data Completed and Pending Labs on day of discharge: Labs from last 24 hours 10/17/24 08:27: Urine Color Yellow, Urine Clarity Clear, Urine pH 6.5, Ur Specific [place] 1.010, Urine Protein Negative, Urine Ketones Negative, Urine Blood Moderate H, Urine Nitrite Negative, Urine Bilirubin Negative, Urine Urobilinogen 0.2, Ur Leukocyte Esterase Negative, Urine RBC 10-20 H, Urine WBC 0-2, Ur Epithelial Cells Rare, Urine Crystals Negative, Urine Bacteria Rare, Urine Casts Negative, Urine Mucus Trace, Ur Culture Indicated? No, Urine Glucose Negative 10/17/24 06:10: WBC 8.83, RBC 5.01, Hgb 15.0, Hct 43.4, MCV 87, MCH 29.9, MCHC 34.6, RDW 12.8, Plt Count 276, MPV 9.4, Immature Gran % 0.1, Neutrophils % 54.6, Lymphocytes % 35.6, Monocytes % 7.9, Eosinophils % 1.1, Basophils % 0.7, Nucleated RBC % 0.0, Absolute Neutrophils 4.82, Absolute Lymphocytes 3.14, Absolute Monocytes 0.70, Absolute Eosinophils 0.10, Absolute Basophils 0.06, Sodium 141, Potassium 3.8, Chloride 105, Carbon Dioxide 23.5, Anion Gap 12.5 H, BUN 26 H, Creatinine 1.2, Est GFR (CKD-EPI 2020) 72.31, Glucose 118 H, Calcium 10.5 H, Magnesium 1.7 L, Total Bilirubin 0.5, AST 29, ALT 79 H, Alkaline Phosphatase 95, Troponin I 6, Total Protein 7.3, Albumin 3.6, Lipase 29 PFSH All Active Problems (Updated 10/17/24 @ 10:51 by Romeo De Jesus MD) Acute cholecystitis (Acute) Abdominal pain, RUQ (Acute) Diverticulitis (Chronic) Hearing loss, left (Acute) TBI (traumatic brain injury) (Acute) Pt. states he did not have a TBI, but a was concussion Allergies (Acute) Right-sided sensorineural hearing loss (Acute) Low back pain (Acute) Urolithiasis (Chronic) History of narcotic addiction (Acute) does not want narcotics offered to him at any time IBS (irritable bowel syndrome) (Chronic) Peripheral polyneuropathy (Acute) Depression (Chronic 09/03/17) Medical History Hypothyroidism Diverticulosis of colon without diverticulitis per colonoscopy 09/14/09-Dr. Mcdermott Renal calculi Fracture of lumbar spine Gastroesophageal reflux disease (06/29/13) Migraines PTSD (post-traumatic stress disorder) (09/03/17) Surgical History History of shoulder surgery History of right knee surgery Family History Mother No problems noted. Father Diabetes Melanoma Heart disease Hyperlipidemia Sister Multiple sclerosis Substance abuse Brother Asthma Alcohol abuse Substance abuse Maternal Grandfather , 70 Alcohol abuse Cancer Paternal Grandfather , in his 50s Tuberculosis Maternal Grandmother , 72 Alcohol abuse Asthma Cancer Paternal Grandmother Cancer Son Asthma Daughter Depression Anxiety Social History Smoking/Tobacco Use Status: Never Tobacco: How many years used: 10 Second Hand Exposure: Yes Smoking risk assessment performed?: Yes Alcohol Intake: former Drug use: Current Sobriety Substance use type: former substance user Details: 26 years clean per pt Caregiver/Support person: No Household members: spouse and children Housing: house Communication Needs: None Do you need help understanding health information?: Never Pets and animals: Yes Pets and animals: dog(s) Sexually active: Yes Do you think of yourself as: straight/heterosexual Current gender identity: male What is your relationship status?: How often do you talk on the phone with friends or family?: once per week How often do you get together with friends or relatives?: once per week How often do you attend scientology or samaritan services?: decline to answer Do you belong to any clubs or organized social groups?: no Panel score (0-1 are the most socially isolated patients): 1 What type of physical activity do you participate in: walking and other Details: PiYo Duration: < 15 minutes/day Frequency: 1-2 times per week Ilda/Episcopal: None Special ilda needs: No Seatbelt use: always Helmet use: Yes Helmet use: sometimes Drive intox or ride w/intox local hazmat 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 Time Spent with Patient Time Spent with Patient: <45 minutes Time was spent: preparing to see the patient(eg.review tests), obtaining and/or reviewing separately otained hiistory, indepentently interpreting results, counseling the patient, care coordination and other
[2024-10-17] MEDS: ACETAMINOPHEN 1,000 MG/100 ML BAG 400 MG IVPB ×2 (14:56→16:54)
[2024-10-17] MEDS: Droperidol 5 MG/2 ML VIAL 0.625 MG IVP (15:11)
[2024-10-17] MEDS: fentaNYL 100 MCG/2 ML VIAL IVP (15:30)
--- NOTE | 2024-10-17 16:17 | PDOC.CMIN ---
Date of service: 10/17/24 Time of Service: 16:17 Care Management Initial Assmt Advance Directives Advance Directives: Do you have an Advance Directive: N 01/19/21 16:59 AD On File at [facility]: N 01/19/21 16:59 Date Asked 09/07/24 09/07/24 13:56 AD Date Reviewed COLST On File at [facility] COLST Date Scanned Code Status Resuscitation Status Full Code Care Team Visit Care Team Role Provider Type Sb Jones Primary Care Provider NON-[facility] STAFF PHYSICIAN Romeo De Jesus MD Emergency Provider [facility] STAFF PHYSICIAN Robert Ratliff MD Admit Provider [facility] STAFF PHYSICIAN Attending Provider Social Determinants of Health Screening Social Determinants of health last assessed in clinic: 10/17/24 Will the Patient Participate in the Screening?: Unable to obtain Do you worry about having a steady place to live?: no Problems where you live: no known problems In the past 12 months, have you had to go without electric, gas, oil or water in your home?: no Has lack of transportation kept you from medical appointments or from doing things needed for daily living?: no Has anyone in your life made you feel unsafe or unsupported?: no How hard is it for you to pay for the very basics like food, housing, medical care, and heating? Would you say it is:: Not hard at all Do you want help finding or keeping work or a job?: I do not need or want help If for any reason you need help with day-to-day activities such as bathing, preparing meals, shopping, managing finances, etc., do you get the help you need?: I don?t need any help How often do you feel lonely or isolated from those around you?: Never Do you speak a language other than Uzbek at home?: No Does the patient want assistance with any of the above?: No PFSH All Active Problems (Updated 10/17/24 @ 10:51 by Romeo De Jesus MD) Acute cholecystitis (Acute) Abdominal pain, RUQ (Acute) Diverticulitis (Chronic) Hearing loss, left (Acute) TBI (traumatic brain injury) (Acute) Pt. states he did not have a TBI, but a was concussion Allergies (Acute) Right-sided sensorineural hearing loss (Acute) Low back pain (Acute) Urolithiasis (Chronic) History of narcotic addiction (Acute) does not want narcotics offered to him at any time IBS (irritable bowel syndrome) (Chronic) Peripheral polyneuropathy (Acute) Depression (Chronic 09/03/17) Medical History Hypothyroidism Diverticulosis of colon without diverticulitis per colonoscopy 09/14/09-Dr. Mcdermott Renal calculi Fracture of lumbar spine Gastroesophageal reflux disease (06/29/13) Migraines PTSD (post-traumatic stress disorder) (09/03/17) Surgical History History of shoulder surgery History of right knee surgery Family History Mother No problems noted. Father Diabetes Melanoma Heart disease Hyperlipidemia Sister Multiple sclerosis Substance abuse Brother Asthma Alcohol abuse Substance abuse Maternal Grandfather , 70 Alcohol abuse Cancer Paternal Grandfather , in his 50s Tuberculosis Maternal Grandmother , 72 Alcohol abuse Asthma Cancer Paternal Grandmother Cancer Son Asthma Daughter Depression Anxiety Social History Smoking/Tobacco Use Status: Never Tobacco: How many years used: 10 Second Hand Exposure: Yes Smoking risk assessment performed?: Yes Alcohol Intake: former Drug use: Current Sobriety Substance use type: former substance user Details: 26 years clean per pt Caregiver/Support person: No Household members: spouse and children Housing: house Communication Needs: None Do you need help understanding health information?: Never Pets and animals: Yes Pets and animals: dog(s) Sexually active: Yes Do you think of yourself as: straight/heterosexual Current gender identity: male What is your relationship status?: How often do you talk on the phone with friends or family?: once per week How often do you get together with friends or relatives?: once per week How often do you attend holiness or buddhist services?: decline to answer Do you belong to any clubs or organized social groups?: no Panel score (0-1 are the most socially isolated patients): 1 What type of physical activity do you participate in: walking and other Details: PiYo Duration: < 15 minutes/day Frequency: 1-2 times per week Ilda/Yarsanism: None Special ilda needs: No Seatbelt use: always Helmet use: Yes Helmet use: sometimes Drive intox or ride w/intox straddle truck 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
--- NOTE | 2024-10-20 14:07 | NUR.NOTE ---
Nursing Note: SaturdayOctober 18, I contacted Som about his [employer] necklace that was left in his room after he was was discharged from the Med-Surg dept. 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 The necklace is in a clean specimen cup with his patient label attached and located at the nursing station next to the desk with the CLN.
== END 2024-10-17 19:18 | disposition home or self-care (01) ==
LOC: ER 10:51 → MS 12:05
PROVIDERS: Emergency Medicine; Admitting Provider Student in an Organized Health Care Education/Training Program; Emergency Provider Emergency Medicine; PCP Physician Assistant; Visit Provider Student in an Organized Health Care Education/Training Program
PROC: 0FT44ZZ Resection of Gallbladder, Percutaneous Endoscopic Approach (ICD-10-PCS; CPT 47562; principal; 2024-10-17 13:00)
DX: K80.00 Calculus of gallbladder with acute cholecystitis without obstruction (principal); E03.9 Hypothyroidism, unspecified; K57.30 Diverticulosis of large intestine without perforation or abscess without bleeding; N20.0 Calculus of kidney; K21.9 Gastro-esophageal reflux disease without esophagitis; G43.909 Migraine, unspecified, not intractable, without status migrainosus; F43.10 Post-traumatic stress disorder, unspecified; I34.0 Nonrheumatic mitral (valve) insufficiency; G62.9 Polyneuropathy, unspecified; K58.9 Irritable bowel syndrome, unspecified; F11.21 Opioid dependence, in remission; F32.A Depression, unspecified; Z79.899 Other long term (current) drug therapy
CPT/HCPCS: 47562; 00123; 80053; 83690; 93005; 96361; 96365; 96366; 96367; 96375; 96376; 99285; 74177; 76705; 81003; 81015; 83735; 84484; 85025; 88304; 93010; G0378; J0131; J0665; J0666; J1100; J1644; J1790; J1885; J2003; J2250; J2371; J2405; J2543; J2704; J3010; J3490

== ENCOUNTER 2025-01-05 15:01 | Observation (INO) | payer BC, SELFPAY ==
[2025-01-05] VITALS (10 sets, daily range): BP systolic 115–147; BP diastolic 81–96; PULSE 50–80; RESP 7–18; TEMP 36–36.7; O2SAT 95–98
--- NOTE | 2025-01-05 15:00 | RT.EKG_ITS ---
APPROVED REPORT Exam: Resting ECG Reason for Exam: stroke ro Patient Location: E HR:52 bpm ECG Measurements Heart Rate 52 AXIS [place] 236 P 61 QRSd 105 QRS -37 QT 427 T 45 QTc 399 Conclusion Sinus bradycardia...rate< 60 Prolonged NY interval...NY >210, V-rate 50- 90 Left axis deviation...QRS axis (-30,-90) no ST segment or T wave abnormalities to suggest occlusive AL
[2025-01-05] MEDS: Omnipaque 350 MG/ML 100 ML BTL IJ (15:10)
[2025-01-05] MEDS: Normal Saline - Diluent 50 ML VIAL IJ (15:12)
[2025-01-05 15:20] LABS: Abs Immature Grans 0.02 10^3/uL (0.0-0.06); HCT 44.1 % (40.0-50.0); HGB 14.9 g/dL (13.5-17.5); Immature Grans % 0.3 %; MCH 29.4 pg (27.0-33.0); MCHC 33.8 % (32.0-36.0); MCV 87 fL (80-95); MPV 9.0 fL (8.0-11.0); Platelet Count 238 10^3/uL (130-400); RBC 5.07 10^6/uL (4.36-5.78); RDW 13.1 % (11.8-14.1); RDW-SD 41.5 fL; WBC 7.13 10^3/uL (4.4-10.8)
--- NOTE | 2025-01-05 15:25 | DI.CT_ITS ---
Exam(s) CT BRAIN NECK CTA EXAM: CT BRAIN NECK CTA CLINICAL HISTORY: right sided deficits stroke alert. TECHNIQUE: Imaging Protocol: Axial CT angiography was performed with multi- slice acquisition and multi-planar and/or 3D reconstructions. CONTRAST MATERIAL: Intravenous: Omnipaque 350 contrast volume:70 mL COMPARISON: CT CTA BRAIN from 02/04/2014 CT CTA NECK/CAROTID from 02/04/[address] HEAD WO from 12/01/2018 FINDINGS: CT Head W/O and W: Ventricles and Extra axial spaces: Normal in size and morphology for the patient's age. Hemorrhage: None. Cerebral parenchyma: There is a normal arboleda-white matter differentiation. No mass effect is identified. Midline shift: None. Brainstem/Cerebellum: Normal. Calvarium: Normal. Visualized Paranasal sinuses/Mastoids: Clear. Soft Tissues: Unremarkable. Enhancement: Unremarkable. CTA Neck W: Common Carotid: Right: No dissection, occlusion or significant stenosis. Left: No dissection, occlusion or significant stenosis. External Carotid: Right: No occlusion or significant stenosis. Left: No occlusion or significant stenosis. Internal Carotid: Right: No dissection, occlusion or significant stenosis. Left: No dissection, occlusion or significant stenosis. Vertebral Artery: Right: No dissection, occlusion or significant stenosis. Left: No dissection, occlusion or significant stenosis. Lung Apices: Normal. Bones: Within normal limits for the patient's age. Soft Tissues: Normal. Thyroid gland: There is a 2.2 cm enhancing nodule in the right thyroid gland. A nonemergent thyroid ultrasound is recommended for further evaluation. CTA Brain W: Internal Carotid Arteries: There is no evidence of an aneurysm, occlusion or significant stenosis. Anterior Cerebral Arteries: Right: No aneurysm, occlusion or significant stenosis. Left: No aneurysm, occlusion or significant stenosis. Middle Cerebral Arteries: Right: No aneurysm, occlusion or significant stenosis. Left: No aneurysm, occlusion or significant stenosis. Posterior Cerebral Arteries: Right: No aneurysm, occlusion or significant stenosis. Left: No aneurysm, occlusion or significant stenosis. Vertebral Arteries: Right: No aneurysm, occlusion or significant stenosis. Left: No aneurysm, occlusion or significant stenosis. Basilar Artery: No aneurysm, occlusion or significant stenosis. IMPRESSION: 1. No large vessel occlusion or significant stenosis on the CT angiography of the head. 2. No acute intracranial process. 3. No occlusion or significant stenosis on the CT angiography of the neck. 4. 2.2 cm left thyroid nodule. Nonemergent thyroid ultrasound is recommended for further evaluation. Unexpected findings RADIATION DOSE DELIVERED: 2,522.38mGy.cm Total DLP DATA REPOSITORY: All CT scans at this facility are submitted to the National Radiology Data Registry (NRDR) Dose Index Registry (DIR) with the [employer] (ACR). RADIATION OPTIMIZATION: All CT scans at this facility use at least one of these dose optimization techniques: automated exposure control; mA and/or kV adjustment per patient size (includes targeted exams where dose is matched to clinical indication); or iterative reconstruction.
[2025-01-05 15:43] LABS: Glucose Negative (Negative)
[2025-01-05 15:48] LABS: INR 1.0 (0.9-1.1); PTT Activated 25.3 sec (20.6-30.2); Prothrombin Time 9.9 sec (9.1-11.1)
[2025-01-05 15:49] LABS: ALT 81 U/L (16-63); AST 32 U/L (15-37); Albumin 3.7 g/dL (3.4-5.0); Alkaline Phosphatase 93 U/L (46-116); Anion Gap 9.3 mmol/L (3-11); BUN 16 mg/dL (7-18); Bilirubin, Total 0.3 mg/dL (0.2-1.0); CO2 26.7 mmol/L (21.0-32.0); Calcium 9.2 mg/dL (8.5-10.1); Chloride 104 mmol/L (98-107); Estimated GFR 105.82 (mL/min/1.73m2); Glucose 95 mg/dL (74-106); Potassium 4.2 mmol/L (3.5-5.1); Sodium 140 mmol/L (136-145); Total Protein 7.6 g/dL (6.4-8.2)
[2025-01-05 15:50] LABS: C & S Indicated? No; RBC 0-2 HPF (0-2); WBC Negative HPF (0-5)
[2025-01-05] MEDS: diphenhydrAMINE 50 MG/ML VIAL IVP (16:40)
[2025-01-05] MEDS: Metoclopramide 10 MG/2 ML VIAL IVP (16:40)
--- NOTE | 2025-01-05 16:40 | W.ED.GENAD ---
Discharge Plan Disposition Patient Disposition: Admit to [facility] Condition: Serious Discharge Details Clinical Impression: Weakness, Numbness, Headache Primary Care Provider: Sb Jones ED Provider: Lisa Ojeda Home Meds and New Rx's Prescriptions: No Action vitamin B complex [B Complex 1] Tablet 1 tab PO DAILY magnesium 250 mg tablet 1,000 mg PO DAILY albuterol sulfate [Ventolin HFA] 90 mcg/actuation HFA aerosol inhaler 2 puff IH Q6H PRN (Reason: shortness of breath or wheezing) Qty: 8.5 0RF tamsulosin 0.4 mg capsule 0.4 mg PO DAILY Qty: 90 3RF psyllium husk [Fiber (psyllium husk)] 0.52 gram capsule 1.04 g PO DAILY cholecalciferol (vitamin D3) [Vitamin D3] 1,000 UNIT capsule 2 cap PO DAILY acetaminophen [Tylenol] 325 mg Tablet 650 mg PO ONCE PRN ibuprofen 200 mg Tablet 200 mg PO Q6H PRN THC 5 mg .Route HS PRN desvenlafaxine succinate 50 mg tablet extended release 24 hr 50 mg PO DAILY desvenlafaxine succinate 100 mg tablet extended release 24 hr 100 mg PO DAILY Patient Comments: Take 1 tablet once a day levothyroxine 75 mcg tablet 75 mcg PO DAILY aripiprazole 2 mg tablet 2 mg PO DAILY lisinopril 10 mg tablet 10 mg PO DAILY Patient Comments: TAKE ONE TABLET BY MOUTH EVERY DAY HPI General Mode of arrival: EMS. Date/Time Provider Initiated Documentation: 01/05/25 15:07. Limitations to Documentation: no limitations. Information obtained by: patient, EMS and old records reviewed. HPI Narrative: 54yo M with hx migraines presenting for headache which is different than his usual migraines. Typically just has head pain, photophobia, and visual changes. Today sometime between [id number] began to develop a headache with associated right sided numbness. This has never happened before. This is not the worst headache of his life. It has been slowly increasing in severity since onset, but is 'manageable'. No N/V. No vertigo. + photophobia, no vision changes. Otherwise in his usual state of health with no fevers, chills, rash, chest pain, shortness of breath, or other concerns. Related Data Home Medications ?Medication ?Instructions ?Recorded ?Confirmed cholecalciferol (vitamin D3) 25 2 cap PO DAILY 09/08/01/05/25 mcg (1,000 unit) capsule (Vitamin D3) magnesium 250 mg tablet 1,000 mg PO DAILY 02/23/19 01/05/25 vitamin B complex (B Complex 1 1 tab PO DAILY 02/23/19 01/05/25 tablet) albuterol sulfate 90 mcg/actuation 2 puff inhalation Q6H PRN 04/27/19 01/05/25 aerosol inhaler (Ventolin HFA) shortness of breath or wheezing #8.5 grams acetaminophen 325 mg tablet 650 mg PO ONCE PRN 01/08/20 01/05/25 (Tylenol) ibuprofen 200 mg tablet 200 mg PO Q6H PRN 08/17/21 01/05/25 tamsulosin 0.4 mg capsule 0.4 mg PO DAILY #90 caps 06/28/22 01/05/25 THC 5 mg .Route HS PRN 03/25/24 01/05/25 desvenlafaxine succinate 100 mg 100 mg PO DAILY 03/25/24 01/05/25 tablet,extended release 24 hr desvenlafaxine succinate 50 mg 50 mg PO DAILY 03/25/24 01/05/25 tablet,extended release 24 hr levothyroxine 75 mcg tablet 75 mcg PO DAILY 03/25/24 01/05/25 psyllium husk 0.52 gram capsule 1.04 g PO DAILY 04/14/24 01/05/25 (Fiber (psyllium husk)) aripiprazole 2 mg tablet 2 mg PO DAILY 01/05/25 01/05/25 lisinopril 10 mg tablet 10 mg PO DAILY 01/05/25 01/05/25 Previous Rx's ?Medication ?Instructions ?Recorded albuterol sulfate 90 mcg/actuation 2 puff inhalation Q6H PRN 04/27/19 aerosol inhaler (Ventolin HFA) shortness of breath or wheezing #8.5 grams tamsulosin 0.4 mg capsule 0.4 mg PO DAILY #90 caps 06/28/22 Allergies Allergy/AdvReac Type Severity Reaction Status Date / Time prochlorperazine AdvReac Severe Other (See Verified 10/17/24 05:55 Comment) erythromycin base AdvReac Intermediate Vomiting Verified 10/17/24 05:55 (Erythromycin Base) cigarette smoke Allergy Other (See Uncoded 10/17/24 05:55 Comment) General Stated Complaint: CVA/TIA YADY: 2 Review of Systems Narrative: see HPI Exam Narrative Exam Narrative: General: Alert, nontoxic Head: Normocephalic, atraumatic Neck: Trachea midline, ?Neck supple. ENT: ?MMM.? N Cardiac: ?RRR, no murmurs appreciated Resp: No respiratory distress. CTAB. Abd: ?Soft, non-distended, nontender : ?No suprapubic tenderness. No CVA tenderness. Extremities: ?No deformities.? No peripheral edema. Neuro: ? GCS 15.? PERRL.? EOMI.? Fluent speech, no dysarthria. Motor- 4+/5 strength RUE, 5/5 strength LUE including elbow flexors/extensors, wrist flexors/extensors, finger abductors/adductors, 5/5 strength symmetric bilateral lower extremities including hipflexors/extensors, knee flexors/extensors, ankle dorsiflexors and planter flexors. Sensation- ?Slightly diminished to light touch RUE and RLE compared to left Coordination- No dysmetria on finger to nose Reflexes- 2/4 achilles & patellar, no clonus Gait/station: ?Deferred CRANIAL NERVES: II: Pupils equal and reactive, III, IV, : EOM intact, no gaze preference or deviation, no nystagmus. V: normal sensation in V1, V2, and V3 segments bilaterally VII: no asymmetry, no nasolabial fold flattening VIII: normal hearing to speech IX, X: normal palatal elevation, no uvular deviation XI: 5/5 head turn and 5/5 shoulder shrug bilaterally XII: midline tongue protrusion NIHSS: 1 (sensation) Course Vital Signs Vital signs: Vital Signs Pulse 76 01/05/25 15:24 Respiratory Rate 16 01/05/25 15:24 Blood Pressure 133/90 01/05/25 15:24 Pulse Oximetry 95 01/05/25 15:24 Pulse 76 01/05/25 15:24 Respiratory Rate 16 01/05/25 16:14 Respiratory Effort Normal 01/05/25 16:14 Respiratory Depth Normal 01/05/25 16:14 Respiratory Pattern Normal 01/05/25 16:14 Blood Pressure 133/90 01/05/25 15:24 Pulse Oximetry 95 01/05/25 15:24 Lab/Test Results Lab/Test Results: Laboratory Tests Range/Units 01/05/25 01/05/25 15:07 15:30 WBC (4.4-10.8) 10^3/uL 7.13 RBC (4.36-5.78) 10^6/uL 5.07 Hgb (13.5-17.5) g/dL 14.9 Hct (40.0-50.0) % 44.1 MCV (80-95) fL 87 MCH (27.0-33.0) pg 29.4 MCHC (32.0-36.0) % 33.8 RDW (11.8-14.1) % 13.1 Plt Count (130-400) 10^3/uL 238 MPV (8.0-11.0) fL 9.0 Immature Gran % % 0.3 Neutrophils % % 47.3 Lymphocytes % % 40.1 Monocytes % % 10.9 Eosinophils % % 0.8 Basophils % % 0.6 Nucleated RBC % (0.0-0.3) % 0.0 Absolute Neutrophils (1.2-6.7) 10^3/uL 3.37 Absolute Lymphocytes (1.2-3.4) 10^3/uL 2.86 Absolute Monocytes (0.1-0.8) 10^3/uL 0.78 Absolute Eosinophils (0.0-0.7) 10^3/uL 0.06 Absolute Basophils (0.0-0.2) 10^3/uL 0.04 PT (9.1-11.1) sec 9.9 INR (0.9-1.1) 1.0 APTT (20.6-30.2) sec 25.3 Sodium (136-145) mmol/L 140 Potassium (3.5-5.1) mmol/L 4.2 Chloride (98-107) mmol/L 104 Carbon Dioxide (21.0-32.0) mmol/L 26.7 Anion Gap (3-11) mmol/L 9.3 BUN (7-18) mg/dL 16 Creatinine (0.70-1.30) mg/dL 0.8 Est GFR (CKD-EPI 2020) (mL/min/1.73m2) 105.82 Glucose (74-106) mg/dL 95 Calcium (8.5-10.1) mg/dL 9.2 Total Bilirubin (0.2-1.0) mg/dL 0.3 AST (15-37) U/L 32 ALT (16-63) U/L 81 H Alkaline Phosphatase (46-116) U/L 93 Total Protein (6.4-8.2) g/dL 7.6 Albumin (3.4-5.0) g/dL 3.7 Urine Color (Yellow) Yellow Urine Clarity (Clear) Clear Urine pH (5-8) 6.0 Ur Specific [place] (1.005-1.025) 1.010 Urine Protein (Neg-Trace) mg/dL Negative Urine Ketones (Negative) mg/dL Negative Urine Blood (Negative) Small H Urine Nitrite (Negative) Negative Urine Bilirubin (Negative) Negative Urine Urobilinogen (Up to 0.2) mg/dL 0.2 Ur Leukocyte Esterase (Negative) Negative Urine RBC (0-2) HPF 0-2 Urine WBC (0-5) HPF Negative Ur Epithelial Cells (Negative) HPF Negative Urine Crystals (Negative) HPF Negative Urine Bacteria (Negative) HPF Rare Urine Casts (Negative) LPF Negative Urine Mucus (Negative) Negative Ur Culture Indicated? No Urine Glucose (Negative) mg/dL Negative Medical Decision Making 54yo M with hx migraines presenting for headache which is different than his usual migraines; today associated with right sided numbness. Vital signs reassuring on arrival. Slight RUE weakness on exam and diminished sensation to light touch RUE and RLE. Concern for CVA vs complex migraine, history less suggestive of SAH. Would not get LP. Taken emergently to CT. -EKG sinus bradycardia, no ST segment or T wave abnormalities to suggest occlusive ME -Labs reviewed as below, CBC reassuring with no leukcytosis or anemia, CMP with no actionable abnormalities, coags normal, UA not infected. -CT independently reviewed, no large bleed or mass on my view, radiology read with no acute findings. -NIHSS 1 for sensory findings. On reassessment strength improving in RUE, still very subtly diminished compared to right. Headache unchanged, 09/24. Given mild improving deficits, would not give tPA though he is in 4.5 hour window. Will give migraine cocktail for headache. Teleneurology consulted and evaluated patient; agree no lysis, adivsed aspirin and MRI/MRV Discussed with [facility] hospitalist Dr. Griffith; patient accepted to medicine service for further workup and management. Awaiting transfer to the floor. - Lab Data Lab results reviewed: Yes I reviewed the patient's lab results. Labs: Laboratory Tests Range/Units 01/05/25 01/05/25 15:07 15:30 WBC (4.4-10.8) 10^3/uL 7.13 RBC (4.36-5.78) 10^6/uL 5.07 Hgb (13.5-17.5) g/dL 14.9 Hct (40.0-50.0) % 44.1 MCV (80-95) fL 87 MCH (27.0-33.0) pg 29.4 MCHC (32.0-36.0) % 33.8 RDW (11.8-14.1) % 13.1 Plt Count (130-400) 10^3/uL 238 MPV (8.0-11.0) fL 9.0 Immature Gran % % 0.3 Neutrophils % % 47.3 Lymphocytes % % 40.1 Monocytes % % 10.9 Eosinophils % % 0.8 Basophils % % 0.6 Nucleated RBC % (0.0-0.3) % 0.0 Absolute Neutrophils (1.2-6.7) 10^3/uL 3.37 Absolute Lymphocytes (1.2-3.4) 10^3/uL 2.86 Absolute Monocytes (0.1-0.8) 10^3/uL 0.78 Absolute Eosinophils (0.0-0.7) 10^3/uL 0.06 Absolute Basophils (0.0-0.2) 10^3/uL 0.04 PT (9.1-11.1) sec 9.9 INR (0.9-1.1) 1.0 APTT (20.6-30.2) sec 25.3 Sodium (136-145) mmol/L 140 Potassium (3.5-5.1) mmol/L 4.2 Chloride (98-107) mmol/L 104 Carbon Dioxide (21.0-32.0) mmol/L 26.7 Anion Gap (3-11) mmol/L 9.3 BUN (7-18) mg/dL 16 Creatinine (0.70-1.30) mg/dL 0.8 Est GFR (CKD-EPI 2020) (mL/min/1.73m2) 105.82 Glucose (74-106) mg/dL 95 Calcium (8.5-10.1) mg/dL 9.2 Total Bilirubin (0.2-1.0) mg/dL 0.3 AST (15-37) U/L 32 ALT (16-63) U/L 81 H Alkaline Phosphatase (46-116) U/L 93 Total Protein (6.4-8.2) g/dL 7.6 Albumin (3.4-5.0) g/dL 3.7 Urine Color (Yellow) Yellow Urine Clarity (Clear) Clear Urine pH (5-8) 6.0 Ur Specific [place] (1.005-1.025) 1.010 Urine Protein (Neg-Trace) mg/dL Negative Urine Ketones (Negative) mg/dL Negative Urine Blood (Negative) Small H Urine Nitrite (Negative) Negative Urine Bilirubin (Negative) Negative Urine Urobilinogen (Up to 0.2) mg/dL 0.2 Ur Leukocyte Esterase (Negative) Negative Urine RBC (0-2) HPF 0-2 Urine WBC (0-5) HPF Negative Ur Epithelial Cells (Negative) HPF Negative Urine Crystals (Negative) HPF Negative Urine Bacteria (Negative) HPF Rare Urine Casts (Negative) LPF Negative Urine Mucus (Negative) Negative Ur Culture Indicated? No Urine Glucose (Negative) mg/dL Negative Critical Care Time Critical Care Time Critical Care Time: Yes Total Critical Care Time: 32 Attestation: Due to a high probability of clinically significant, life threatening deterioration, the patient required my highest level of preparedness to intervene emergently and I personally spent this critical care time directly and personally managing the patient. This critical care time included obtaining a history; examining the patient; pulse oximetry; ordering and review of studies; arranging urgent treatment with development of a management plan; evaluation of patient's response to treatment; frequent reassessment; and, discussions with other providers. This critical care time was performed to assess and manage the high probability of imminent, life-threatening deterioration that could result in multi-organ failure. It was exclusive of separately billable procedures and treating other patients PFSH All Active Problems (Updated 01/05/25 @ 17:09 by Lisa Ojeda MD) Headache (Acute) Numbness (Acute) Weakness (Acute) CVA (cerebral vascular accident) (Chronic) HTN (hypertension) (Chronic) Abdominal pain, RUQ (Acute) Diverticulitis (Chronic) Hearing loss, left (Acute) TBI (traumatic brain injury) (Acute) Pt. states he did not have a TBI, but a was concussion Allergies (Acute) Right-sided sensorineural hearing loss (Acute) Low back pain (Acute) Urolithiasis (Chronic) History of narcotic addiction (Acute) does not want narcotics offered to him at any time IBS (irritable bowel syndrome) (Chronic) Peripheral polyneuropathy (Acute) Depression (Chronic 09/03/17) Medical History (Updated 01/05/25 @ 17:09 by Lisa Ojeda MD) Hypothyroidism Diverticulosis of colon without diverticulitis per colonoscopy 09/14/09-Dr. Mcdermott Renal calculi Fracture of lumbar spine Gastroesophageal reflux disease (06/29/13) Migraines PTSD (post-traumatic stress disorder) (09/03/17) Surgical History (Updated 10/19/24 @ 11:25 by Alba Butler [facility]) Hx of umbilical hernia repair (~10/2024) S/P laparoscopic cholecystectomy (~10/2024) History of shoulder surgery History of right knee surgery Family History Mother No problems noted. Father Diabetes Melanoma Heart disease Hyperlipidemia Sister Multiple sclerosis Substance abuse Brother Asthma Alcohol abuse Substance abuse Maternal Grandfather , 70 Alcohol abuse Cancer Paternal Grandfather , in his 50s Tuberculosis Maternal Grandmother , 72 Alcohol abuse Asthma Cancer Paternal Grandmother Cancer Son Asthma Daughter Depression Anxiety Social History Smoking/Tobacco Use Status: Never Tobacco: How many years used: 10 Second Hand Exposure: Yes Smoking risk assessment performed?: Yes Alcohol Intake: former Drug use: Current Sobriety Substance use type: former substance user Details: 26 years clean per pt Caregiver/Support person: No Household members: spouse and children Housing: house Communication Needs: None Do you need help understanding health information?: Never Pets and animals: Yes Pets and animals: dog(s) Sexually active: Yes Do you think of yourself as: straight/heterosexual Current gender identity: male What is your relationship status?: How often do you talk on the phone with friends or family?: once per week How often do you get together with friends or relatives?: once per week How often do you attend methodist or confucianism services?: decline to answer Do you belong to any clubs or organized social groups?: no Panel score (0-1 are the most socially isolated patients): 1 What type of physical activity do you participate in: walking and other Details: PiYo Duration: < 15 minutes/day Frequency: 1-2 times per week Ilda/Restorationism: None Special ilda needs: No Seatbelt use: always Helmet use: Yes Helmet use: sometimes Drive intox or ride w/intox milk delivery 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
--- NOTE | 2025-01-05 16:57 | W.PM.HP.N ---
Date of service: 01/05/25 Time of Service: 16:57 Assessment and Plan Assessment and plan (1) CVA (cerebral vascular accident): Status: Chronic Assessment and plan: -suspected, this patient presented with right-sided weakness difficulty finding words that resolved upon arrival to the emergency department and only had an NIH of 1 for decreased sensation of the right upper extremity - Head CT was negative - Discussed with teleneurology, recommended admission for stroke workup including MRI/MRA of head and neck and starting aspirin (patient is status post 324 mg aspirin in the emergency department) - Will follow-up MRI - Will also start high-dose statin 80 mg Lipitor at bedtime - Follow-up PT evaluation (2) Hypothyroidism: Assessment and plan: - Continue home Synthroid (3) HTN (hypertension): Status: Chronic Assessment and plan: - Continue home lisinopril History of Present Illness History of Present Illness Chief Complaint: Right-sided weakness Narrative: 54-year-old male with past medical history of hypertension, hypothyroidism and noncomplex migraines who presents the emergency department with last known well at 12:30pm who presents with a headache which is diferent this his usual migraine. Patient states that his usual migraines include head pain, photophobia and visual changes but at around 12:30 PM he noticed that he was having weakness and numbness. He denied any headache, lightheadedness, dizziness, chest pain, nausea vomiting or diarrhea. In the emergency department patient was noted as having normal vital signs, and normal physical exam with the exception of an NIH score of 1 for decreased sensation of the right upper extremity but otherwise normal neurologic exam. CBC and CMP were unremarkable, troponin was negative, EKG was at without acute findings, and head CT was negative. While in the emergency department teleneurology was consulted and they recommended admission for MRI/MRA of the head and neck. At which time emergency room physician paged hospitalist for admission for patient requiring stroke workup. Review of Systems All systems reviewed & are unremarkable except as noted in HPI and below PFSH All Active Problems (Updated 01/05/25 @ 17:45 by SHALA AMADO) Headache (Acute) Numbness (Acute) Weakness (Acute) CVA (cerebral vascular accident) (Chronic) HTN (hypertension) (Chronic) Abdominal pain, RUQ (Acute) Diverticulitis (Chronic) Hearing loss, left (Acute) TBI (traumatic brain injury) (Acute) Pt. states he did not have a TBI, but a was concussion Allergies (Acute) Right-sided sensorineural hearing loss (Acute) Low back pain (Acute) Urolithiasis (Chronic) History of narcotic addiction (Acute) does not want narcotics offered to him at any time IBS (irritable bowel syndrome) (Chronic) Peripheral polyneuropathy (Acute) Depression (Chronic 09/03/17) Medical History (Updated 01/05/25 @ 17:45 by SHALA AMADO) Hypothyroidism Diverticulosis of colon without diverticulitis per colonoscopy 09/14/09-Dr. Mcdermott Renal calculi Fracture of lumbar spine Gastroesophageal reflux disease (06/29/13) Migraines PTSD (post-traumatic stress disorder) (09/03/17) Surgical History (Updated 10/19/24 @ 11:25 by Alba Butler CMA) Hx of umbilical hernia repair (~10/2024) S/P laparoscopic cholecystectomy (~10/2024) History of shoulder surgery History of right knee surgery Family History Mother No problems noted. Father Diabetes Melanoma Heart disease Hyperlipidemia Sister Multiple sclerosis Substance abuse Brother Asthma Alcohol abuse Substance abuse Maternal Grandfather , 70 Alcohol abuse Cancer Paternal Grandfather , in his 50s Tuberculosis Maternal Grandmother , 72 Alcohol abuse Asthma Cancer Paternal Grandmother Cancer Son Asthma Daughter Depression Anxiety Social History Smoking/Tobacco Use Status: Never Tobacco: How many years used: 10 Second Hand Exposure: Yes Smoking risk assessment performed?: Yes Alcohol Intake: former Drug use: Current Sobriety Substance use type: former substance user Details: 26 years clean per pt Caregiver/Support person: No Household members: spouse and children Housing: house Communication Needs: None Do you need help understanding health information?: Never Pets and animals: Yes Pets and animals: dog(s) Sexually active: Yes Do you think of yourself as: straight/heterosexual Current gender identity: male What is your relationship status?: How often do you talk on the phone with friends or family?: once per week How often do you get together with friends or relatives?: once per week How often do you attend mormon or restorationist services?: decline to answer Do you belong to any clubs or organized social groups?: no Panel score (0-1 are the most socially isolated patients): 1 What type of physical activity do you participate in: walking and other Details: PiYo Duration: < 15 minutes/day Frequency: 1-2 times per week Ilda/Yazidism: None Special ilda needs: No Seatbelt use: always Helmet use: Yes Helmet use: sometimes Drive intox or ride w/intox corporate 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 Meds Allergies and Home Medications Allergies Allergy/AdvReac Type Severity Reaction Status Date / Time prochlorperazine AdvReac Severe Other (See Verified 01/05/25 17:29 Comment) erythromycin base AdvReac Intermediate Vomiting Verified 01/05/25 17:29 (Erythromycin Base) cigarette smoke Allergy Other (See Uncoded 01/05/25 17:29 Comment) Home Medications ?Medication ?Instructions ?Recorded ?Confirmed ?Type cholecalciferol (vitamin D3) 25 2 cap PO DAILY 09/09/15 01/05/25 History mcg (1,000 unit) capsule (Vitamin D3) magnesium 250 mg tablet 1,000 mg PO DAILY 02/23/19 01/05/25 History vitamin B complex (B Complex 1 1 tab PO DAILY 02/23/19 01/05/25 History tablet) albuterol sulfate 90 mcg/actuation 2 puff inhalation Q6H PRN 04/27/19 01/05/25 Rx aerosol inhaler (Ventolin HFA) shortness of breath or wheezing #8.5 grams acetaminophen 325 mg tablet 650 mg PO ONCE PRN 01/08/20 01/05/25 History (Tylenol) ibuprofen 200 mg tablet 200 mg PO Q6H PRN 08/17/21 01/05/25 History tamsulosin 0.4 mg capsule 0.4 mg PO DAILY #90 caps 06/28/22 01/05/25 Rx THC 5 mg .Route HS PRN 03/25/24 01/05/25 History desvenlafaxine succinate 100 mg 100 mg PO DAILY 03/25/24 01/05/25 History tablet,extended release 24 hr desvenlafaxine succinate 50 mg 50 mg PO DAILY 03/25/24 01/05/25 History tablet,extended release 24 hr levothyroxine 75 mcg tablet 75 mcg PO DAILY 03/25/24 01/05/25 History psyllium husk 0.52 gram capsule 1.04 g PO DAILY 04/14/24 01/05/25 History (Fiber (psyllium husk)) aripiprazole 2 mg tablet 2 mg PO DAILY 01/05/25 01/05/25 History lisinopril 10 mg tablet 10 mg PO DAILY 01/05/25 01/05/25 History Exam Narrative Exam Narrative: Well-appearing gentleman laying in bed in mild distress due to headache though it is improving, ANO x 4, heart regular rhythm, with good auscultation bilaterally, abdomen soft, nontender, nondistended, normal cranial nerves II through XII, normal sensation and strength in bilateral upper and lower extremities Results Labs 01/05/25 15:07 01/05/25 15:07 Labs: Laboratory Results - last 24 hr 01/05/25 01/05/25 15:07 15:30 WBC 7.13 RBC 5.07 Hgb 14.9 Hct 44.1 MCV 87 MCH 29.4 MCHC 33.8 RDW 13.1 Plt Count 238 MPV 9.0 Immature Gran % 0.3 Neutrophils % 47.3 Lymphocytes % 40.1 Monocytes % 10.9 Eosinophils % 0.8 Basophils % 0.6 Nucleated RBC % 0.0 Absolute Neutrophils 3.37 Absolute Lymphocytes 2.86 Absolute Monocytes 0.78 Absolute Eosinophils 0.06 Absolute Basophils 0.04 PT 9.9 INR 1.0 APTT 25.3 Sodium 140 Potassium 4.2 Chloride 104 Carbon Dioxide 26.7 Anion Gap 9.3 BUN 16 Creatinine 0.8 Est GFR (CKD-EPI 2020) 105.82 Glucose 95 Calcium 9.2 Total Bilirubin 0.3 AST 32 ALT 81 H Alkaline Phosphatase 93 Total Protein 7.6 Albumin 3.7 Urine Color Yellow Urine Clarity Clear Urine pH 6.0 Ur Specific [place] 1.010 Urine Protein Negative Urine Ketones Negative Urine Blood Small H Urine Nitrite Negative Urine Bilirubin Negative Urine Urobilinogen 0.2 Ur Leukocyte Esterase Negative Urine RBC 0-2 Urine WBC Negative Ur Epithelial Cells Negative Urine Crystals Negative Urine Bacteria Rare Urine Casts Negative Urine Mucus Negative Ur Culture Indicated? No Urine Glucose Negative Last Vital Signs Pulse 76 01/05/25 15:24 Resp 16 01/05/25 16:14 BP 133/90 01/05/25 15:24 Pulse Ox 95 01/05/25 15:24 Time Spent Time spent with Patient: >75 minutes Time was spent: preparing to see the patient(eg.review tests), obtaining and/or reviewing separately otained hiistory, ordering medications,tests, procedures, referring, communicating with other health respiratory care program director, indepentently interpreting results, counseling the patient and care coordination
[2025-01-05] MEDS: Aspirin 81 MG CHEW 324 MG CH (17:10)
[2025-01-05] MEDS: Normal Saline 1,000 ML 1000 ML IV (17:11)
[2025-01-05 17:30] LABS: Troponin I 4 ng/L (<or=76)
--- NOTE | 2025-01-05 18:33 | W.PC.ACHO ---
Registration Status: ADM PATY Primary Language: Preferred Language: Albanian ED Information & Data Chief Complaint CVA/TIA 01/05/25 16:40 Triage Note LKW @ 1230 having a hard 01/05/25 15:24 time find the right words, slightly weak on right side. Medical / Surgical History (Last Reviewed 10/17/24 @ 05:52 by Willy Saunders MD) Hypothyroidism Diverticulosis of colon without diverticulitis Renal calculi Fracture of lumbar spine Gastroesophageal reflux disease (06/29/13) Migraines PTSD (post-traumatic stress disorder) (09/03/17) (Last Updated 10/19/24 @ 11:25 by Alba Butler CMA) Hx of umbilical hernia repair (~10/2024) S/P laparoscopic cholecystectomy (~10/2024) History of shoulder surgery History of right knee surgery Most Recent Vital Signs Temperature 36.7 C 01/05/25 17:46 Pulse 57 L 01/05/25 17:46 Pulse Rhythm Regular 01/05/25 17:46 Pulse 67 01/05/25 16:46 Respiratory Rate 18 01/05/25 17:46 Respiratory Effort Normal, Non-Labored 01/05/25 17:46 Respiratory Depth Normal 01/05/25 17:46 Respiratory Pattern Normal 01/05/25 17:46 Blood Pressure 126/87 01/05/25 17:46 Blood Pressure Mean 101 01/05/25 16:46 Pulse Oximetry 98 01/05/25 17:46 Oxygen Delivery Method Room Air 01/05/25 17:46 Oxygen Flow Rate 0 01/05/25 17:46 Pain Level 5 01/05/25 17:46 Allergies prochlorperazine Adverse Reaction (Severe, Verified 01/05/25 17:29) Other (See Comment) Anxiety/akathisia erythromycin base (Erythromycin Base) Adverse Reaction (Intermediate, Verified 01/05/25 17:29) Vomiting cigarette smoke Allergy (Uncoded 01/05/25 17:29) Other (See Comment) Precautions Isolation Standard precaution 01/05/25 16:14 Active Medications Generic Name Dose Route Start Last Admin Trade Name Freq PRN Reason Stop Dose Admin Iohexol 100 ml 01/05/25 15:15 01/05/25 15:10 Omnipaque 350 Mg/Ml 100 Ml Btl IJ 02/04/25 23:59 70 ml DIRECTED GARETT Administration Sodium Chloride 50 ml 01/05/25 15:15 01/05/25 15:12 Normal Saline - Diluent 50 Ml Vial IJ 50 ml .FOR DI USE GARETT Administration IV IV Catheter Type [Left Peripheral IV Antecubital] IV Catheter Gauge [Left 18 Antecubital] Diet Orders Category Date Time Status Heart Healthy Eating [DIET] Nutrition 01/05/25 Dinner Active Diagnostics 01/05/25 01/05/25 01/05/25 Range/Units 18:09 16:00 15:30 WBC (4.4-10.8) 10^3/uL RBC (4.36-5.78) 10^6/uL Hgb (13.5-17.5) g/dL Hct (40.0-50.0) % MCV (80-95) fL MCH (27.0-33.0) pg MCHC (32.0-36.0) % RDW (11.8-14.1) % Plt Count (130-400) 10^3/uL MPV (8.0-11.0) fL Immature Gran % % Neutrophils % % Lymphocytes % % Monocytes % % Eosinophils % % Basophils % % Nucleated RBC % (0.0-0.3) % Absolute Neutrophils (1.2-6.7) 10^3/uL Absolute Lymphocytes (1.2-3.4) 10^3/uL Absolute Monocytes (0.1-0.8) 10^3/uL Absolute Eosinophils (0.0-0.7) 10^3/uL Absolute Basophils (0.0-0.2) 10^3/uL PT (9.1-11.1) sec INR (0.9-1.1) APTT (20.6-30.2) sec Sodium (136-145) mmol/L Potassium (3.5-5.1) mmol/L Chloride (98-107) mmol/L Carbon Dioxide (21.0-32.0) mmol/L Anion Gap (3-11) mmol/L BUN (7-18) mg/dL Creatinine (0.70-1.30) mg/dL Est GFR (CKD-EPI 2020) (mL/min/1.73m2) Glucose (74-106) mg/dL Calcium (8.5-10.1) mg/dL Total Bilirubin (0.2-1.0) mg/dL AST (15-37) U/L ALT (16-63) U/L Alkaline Phosphatase (46-116) U/L Troponin I Cancelled 4 (<or=76) ng/L Total Protein (6.4-8.2) g/dL Albumin (3.4-5.0) g/dL Urine Color Yellow (Yellow) Urine Clarity Clear (Clear) Urine pH 6.0 (5-8) Ur Specific [place] 1.010 (1.005-1.025) Urine Protein Negative (Neg-Trace) mg/dL Urine Ketones Negative (Negative) mg/dL Urine Blood Small H (Negative) Urine Nitrite Negative (Negative) Urine Bilirubin Negative (Negative) Urine Urobilinogen 0.2 (Up to 0.2) mg/dL Ur Leukocyte Esterase Negative (Negative) Urine RBC 0-2 (0-2) HPF Urine WBC Negative (0-5) HPF Ur Epithelial Cells Negative (Negative) HPF Urine Crystals Negative (Negative) HPF Urine Bacteria Rare (Negative) HPF Urine Casts Negative (Negative) LPF Urine Mucus Negative (Negative) Ur Culture Indicated? No Urine Glucose Negative (Negative) mg/dL 01/05/25 Range/Units 15:07 WBC 7.13 (4.4-10.8) 10^3/uL RBC 5.07 (4.36-5.78) 10^6/uL Hgb 14.9 (13.5-17.5) g/dL Hct 44.1 (40.0-50.0) % MCV 87 (80-95) fL MCH 29.4 (27.0-33.0) pg MCHC 33.8 (32.0-36.0) % RDW 13.1 (11.8-14.1) % Plt Count 238 (130-400) 10^3/uL MPV 9.0 (8.0-11.0) fL Immature Gran % 0.3 % Neutrophils % 47.3 % Lymphocytes % 40.1 % Monocytes % 10.9 % Eosinophils % 0.8 % Basophils % 0.6 % Nucleated RBC % 0.0 (0.0-0.3) % Absolute Neutrophils 3.37 (1.2-6.7) 10^3/uL Absolute Lymphocytes 2.86 (1.2-3.4) 10^3/uL Absolute Monocytes 0.78 (0.1-0.8) 10^3/uL Absolute Eosinophils 0.06 (0.0-0.7) 10^3/uL Absolute Basophils 0.04 (0.0-0.2) 10^3/uL PT 9.9 (9.1-11.1) sec INR 1.0 (0.9-1.1) APTT 25.3 (20.6-30.2) sec Sodium 140 (136-145) mmol/L Potassium 4.2 (3.5-5.1) mmol/L Chloride 104 (98-107) mmol/L Carbon Dioxide 26.7 (21.0-32.0) mmol/L Anion Gap 9.3 (3-11) mmol/L BUN 16 (7-18) mg/dL Creatinine 0.8 (0.70-1.30) mg/dL Est GFR (CKD-EPI 2020) 105.82 (mL/min/1.73m2) Glucose 95 (74-106) mg/dL Calcium 9.2 (8.5-10.1) mg/dL Total Bilirubin 0.3 (0.2-1.0) mg/dL AST 32 (15-37) U/L ALT 81 H (16-63) U/L Alkaline Phosphatase 93 (46-116) U/L Troponin I (<or=76) ng/L Total Protein 7.6 (6.4-8.2) g/dL Albumin 3.7 (3.4-5.0) g/dL Urine Color (Yellow) Urine Clarity (Clear) Urine pH (5-8) Ur Specific [place] (1.005-1.025) Urine Protein (Neg-Trace) mg/dL Urine Ketones (Negative) mg/dL Urine Blood (Negative) Urine Nitrite (Negative) Urine Bilirubin (Negative) Urine Urobilinogen (Up to 0.2) mg/dL Ur Leukocyte Esterase (Negative) Urine RBC (0-2) HPF Urine WBC (0-5) HPF Ur Epithelial Cells (Negative) HPF Urine Crystals (Negative) HPF Urine Bacteria (Negative) HPF Urine Casts (Negative) LPF Urine Mucus (Negative) Ur Culture Indicated? Urine Glucose (Negative) mg/dL [id number] Documentation Fingerstick Glucose Start: 01/05/25 15:09 Freq: .Stat Status: Complete Protocol: Activity Type Activity Date Activity User E-sign Co-sign Detail Recorded Client Recorded Date Recorded By Document 01/05/25 15:04 SHALA AMADO(3) [id number] 01/05/25 15:15 SHALA AMADO(4) Intake and Output - 24 Hour Total 01/05/25 14:53 thru 01/05/25 17:46 Weight 117.2 kg Other: Urine Appearance Clear Falls Risk Assessment History of Falls No History 01/05/25 17:46 Contributing Factors No Factors 01/05/25 17:46 Ambulatory Aids Independent 01/05/25 17:46 Tubes/Lines None 01/05/25 17:46 Fall Total Score 0 01/05/25 17:46 Level of Risk Standard/Low Risk 01/05/25 17:46 Problems (Last Reviewed 10/17/24 @ 05:52 by Willy Saunders MD) CVA (cerebral vascular accident) (Chronic) HTN (hypertension) (Chronic) v v v v v v v v v Sending and/or Receiving Nurses: Please use comment section below to note any information pertinent to the patient hand-off not included above. Information / Comments: Report received from: First report called at 1800 from I[place] in the ED. Patient stable and ambulatory.
[2025-01-05] MEDS: Normal Saline Flush 10 ML SYR IVP (19:35)
--- NOTE | 2025-01-06 | DI.MRI_ITS ---
Exam(s) MR BRAIN WO EXAM: MR BRAIN WO CLINICAL HISTORY: TIA vs CVA TECHNIQUE: Multiplanar multisequence MRI of the brain was performed. CT CT BRAIN NECK CTA from 01/05/2025 FINDINGS: VENTRICLES AND EXTRA AXIAL SPACES: Normal in size and morphology for the patient's age. MIDLINE SHIFT: None. CEREBRAL PARENCHYMA: No focus of restricted diffusion to suggest acute infarct. No space-occupying lesion identified. HEMORRHAGE: None. BRAINSTEM/CEREBELLUM: Normal. CALVARIUM: Normal. VISUALIZED PARANASAL SINUSES/MASTOIDS:Clear. [place] OF [place]: Normal flow void. PITUITARY GLAND: Unremarkable. OTHER FINDINGS: None. IMPRESSION: There is no evidence of an acute infarct or intracranial mass. DATA REPOSITORY:
[2025-01-06] MEDS: Levothyroxine 75 MCG TAB PO (05:24)
[2025-01-06 06:11] LABS: HCT 43.0 % (40.0-50.0); HGB 14.8 g/dL (13.5-17.5); MCH 29.7 pg (27.0-33.0); MCHC 34.4 % (32.0-36.0); MCV 86 fL (80-95); MPV 9.0 fL (8.0-11.0); Platelet Count 230 10^3/uL (130-400); RBC 4.99 10^6/uL (4.36-5.78); RDW 13.1 % (11.8-14.1); RDW-SD 40.8 fL; WBC 7.12 10^3/uL (4.4-10.8)
[2025-01-06 06:37] LABS: Anion Gap 10.6 mmol/L (3-11); BUN 14 mg/dL (7-18); CO2 24.4 mmol/L (21.0-32.0); Calcium 8.6 mg/dL (8.5-10.1); Chloride 106 mmol/L (98-107); Estimated GFR 102.12 (mL/min/1.73m2); Glucose 106 mg/dL (74-106); Magnesium 1.9 mg/dL (1.8-2.4); Potassium 4.2 mmol/L (3.5-5.1); Sodium 141 mmol/L (136-145)
--- NOTE | 2025-01-06 07:00 | DI.MRI_ITS ---
Exam(s) MR ANGIO BRAIN WO EXAM: MR ANGIO BRAIN WO CLINICAL HISTORY: CVA/TIA. TECHNIQUE: Multiplanar multisequence MRA of the Neck was performed. COMPARISON: CT CT BRAIN NECK CTA from 01/05/2025 FINDINGS: Common Carotid: Right: No dissection, occlusion or significant stenosis. Left: No dissection, occlusion or significant stenosis. External Carotid: Right: No evidence of occlusion or significant stenosis. Left: No evidence of occlusion or significant stenosis. Internal Carotid: Right: No dissection, occlusion or significant stenosis. Left: No dissection, occlusion or significant stenosis. Vertebral Artery: Right: No dissection, occlusion or significant stenosis. Left: No dissection, occlusion or significant stenosis. The visualized paraspinal soft tissues are unremarkable. IMPRESSION: No evidence of dissection, occlusion or significant stenosis. DATA REPOSITORY:
[2025-01-06 07:53] VITALS: BP 130/88; PULSE 62; RESP 18; TEMP 36.1; O2SAT 97
--- NOTE | 2025-01-06 08:57 | PDOC.CMIN ---
Date of service: 01/06/25 Time of Service: 08:57 Care Management Initial Assmt Initial Assessment Reason for Hospitalization: CVA Functional Status/Living Situation Patient Presentation: Vadim was sitting up on the side of the bed, fully dressed, visiting with his and daughter when CM met with him. He was admitted with a Tia/Cva last night. The symptoms resolved shortly after arrival to the ED, but the provider wanted to observe him overnight and do an MRI/MRA this morning. The tests were completed and showed no evidence of dissection, occlusion, significant stenosis, acute infarct or mass. He will be discharged home later today. Vadim lives in a single family home in [facility]. He has 2 children and works for the [employer]. He is independnet at baseline and does not receive any community services. 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) Instrumental Activities of Daily Living (ADLs): Independent Medications Medication Management: No Issues/Barriers identified Physical Functioning/Mobility Assistive Device: none Advance Directives Advance Directives: Do you have an Advance Directive: N 01/19/21, 16:59 AD On File at [facility]: N 01/19/21, 16:59 Date Asked 01/05/25 01/05/25, 15:03 AD Date Reviewed COLST On File at [facility] COLST Date Scanned Code Status Resuscitation Status Full Code Insurance Coverage/Financial Issues [place]: [place] Care Team Visit Care Team Role Provider Type Sb Jones Primary Care Provider NON-[facility] STAFF PHYSICIAN InPatient Amilcar Harper Other Providers OTHER Lisa Ojeda MD Emergency Provider [facility] STAFF PHYSICIAN Brendan Griffith MD Admit Provider [facility] STAFF PHYSICIAN Attending Provider Discharge Potential Discharge Needs: PCP F/U Appt Anticipated Barriers to Discharge: None Identified Patient/Family Education Needs: Review discharge instructions, discuss Ask Me Three Transportation: Private vehicle Plan: Anticipate Vadim will be discharged home, with no new services, when medically cleared. He will follow up with his PCP and plan of care and transport with family. CM will follow. Social Determinants of Health Screening Social Determinants of health last assessed in clinic: 01/06/25 Will the Patient Participate in the Screening?: Yes Do you worry about having a steady place to live?: yes What is your living situation today?: I do not have steady housing Problems where you live: no known problems In the past 12 months, have you had to go without electric, gas, oil or water in your home?: no 1. Within the past 12 months, we worried whether our food would run out before we got money to buy more.: Never true 2. Within the past 12 months, the food we bought just didn't last and we didn't have money to get more.: Never true Has lack of transportation kept you from medical appointments or from doing things needed for daily living?: no Has anyone in your life made you feel unsafe or unsupported?: no How hard is it for you to pay for the very basics like food, housing, medical care, and heating? Would you say it is:: Not hard at all Do you want help finding or keeping work or a job?: I do not need or want help If for any reason you need help with day-to-day activities such as bathing, preparing meals, shopping, managing finances, etc., do you get the help you need?: I don?t need any help How often do you feel lonely or isolated from those around you?: Never Do you speak a language other than Kyrgyz at home?: No Does the patient want assistance with any of the above?: No Health Related Social Needs Health related social needs: housing instability, housed, with risk of homelessness (Z59.811) PFSH All Active Problems (Updated 01/05/25 @ 17:45 by CollegeHumorREGULO) Headache (Acute) Numbness (Acute) Weakness (Acute) CVA (cerebral vascular accident) (Chronic) HTN (hypertension) (Chronic) Abdominal pain, RUQ (Acute) Diverticulitis (Chronic) Hearing loss, left (Acute) TBI (traumatic brain injury) (Acute) Pt. states he did not have a TBI, but a was concussion Allergies (Acute) Right-sided sensorineural hearing loss (Acute) Low back pain (Acute) Urolithiasis (Chronic) History of narcotic addiction (Acute) does not want narcotics offered to him at any time IBS (irritable bowel syndrome) (Chronic) Peripheral polyneuropathy (Acute) Depression (Chronic 09/03/17) Medical History (Updated 01/05/25 @ 17:45 by SHALA AMADO) Hypothyroidism Diverticulosis of colon without diverticulitis per colonoscopy 09/14/09-Dr. Mcdermott Renal calculi Fracture of lumbar spine Gastroesophageal reflux disease (06/29/13) Migraines PTSD (post-traumatic stress disorder) (09/03/17) Surgical History (Updated 10/19/24 @ 11:25 by Alba Butler CMA) Hx of umbilical hernia repair (~10/2024) S/P laparoscopic cholecystectomy (~10/2024) History of shoulder surgery History of right knee surgery Family History Mother No problems noted. Father Diabetes Melanoma Heart disease Hyperlipidemia Sister Multiple sclerosis Substance abuse Brother Asthma Alcohol abuse Substance abuse Maternal Grandfather , 70 Alcohol abuse Cancer Paternal Grandfather , in his 50s Tuberculosis Maternal Grandmother , 72 Alcohol abuse Asthma Cancer Paternal Grandmother Cancer Son Asthma Daughter Depression Anxiety Social History Smoking/Tobacco Use Status: Never Tobacco: How many years used: 10 Second Hand Exposure: Yes Smoking risk assessment performed?: Yes Alcohol Intake: former Drug use: Current Sobriety Substance use type: former substance user Details: 26 years clean per pt Caregiver/Support person: No Household members: spouse and children Housing: house Communication Needs: None Do you need help understanding health information?: Never Pets and animals: Yes Pets and animals: dog(s) Sexually active: Yes Do you think of yourself as: straight/heterosexual Current gender identity: male What is your relationship status?: How often do you talk on the phone with friends or family?: once per week How often do you get together with friends or relatives?: once per week How often do you attend nondenominational or sikhism services?: decline to answer Do you belong to any clubs or organized social groups?: no Panel score (0-1 are the most socially isolated patients): 1 What type of physical activity do you participate in: walking and other Details: PiYo Duration: < 15 minutes/day Frequency: 1-2 times per week Ilda/Anabaptism: None Special ilda needs: No Seatbelt use: always Helmet use: Yes Helmet use: sometimes Drive intox or ride w/intox crew car 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
[2025-01-06] MEDS: Aspirin E.C. 81 MG TABEC PO (09:26)
[2025-01-06] MEDS: Enoxaparin 40 MG/0.4 ML SYR SC (09:26)
[2025-01-06] MEDS: Tamsulosin 0.4 MG CAPCR PO (09:26)
[2025-01-06] MEDS: Lisinopril 10 MG TAB PO (09:26)
--- NOTE | 2025-01-06 10:59 | PT.INIE ---
PT Notes Visit Reasons: CVA/TIA Physical Therapy Inpatient Initial Evaluation Date: 01/06/2025 Referring Doctor: Brendan Griffith MD PT Orders: PT CONSULT: Eval/Treat Precautions: Fall. Standard. Activity as tolerated. Patient Profile/Admitting Diagnosis: 54-year-old male with chief complaints of altered mental status, R-sided weakness, and headache admitted for CVA work up. PMHX: All Active Problems (Updated 01/05/25 @ 17:45 by SHALA AMADO) Headache (Acute) Numbness (Acute) Weakness (Acute) CVA (cerebral vascular accident) (Chronic) HTN (hypertension) (Chronic) Abdominal pain, RUQ (Acute) Diverticulitis (Chronic) Hearing loss, left (Acute) TBI (traumatic brain injury) (Acute) Pt. states he did not have a TBI, but a was concussion Allergies (Acute) Right-sided sensorineural hearing loss (Acute) Low back pain (Acute) Urolithiasis (Chronic) History of narcotic addiction (Acute) does not want narcotics offered to him at any time IBS (irritable bowel syndrome) (Chronic) Peripheral polyneuropathy (Acute) Depression (Chronic 09/03/17) Medical History (Updated 01/05/25 @ 17:45 by SHALA AMADO) Hypothyroidism Diverticulosis of colon without diverticulitis per colonoscopy 09/14/09-Dr. Mcdermott Renal calculi Fracture of lumbar spine Gastroesophageal reflux disease (06/29/13) Migraines PTSD (post-traumatic stress disorder) (09/03/17) Surgical History (Updated 10/19/24 @ 11:25 by Alba Butler [facility] [address]) Hx of umbilical hernia repair (~10/2024) S/P laparoscopic cholecystectomy (~10/2024) History of shoulder surgery History of right knee surgery Social History/Home Situation: Independent with all aspects of ADLs. 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 Equipment Owned/DME: None Subjective: Headache now mild compared to yesterday. Denied lightheadedness and chest pain. Objective: General Observation: Seated at edge of bed. 2 family members present. Mental Status: Alert and oriented as to person, place, time, and purpose. Able to pay attention, focus, and respond appropriately. Pain: Minimal headache Vital Signs: Closely monitored by nursing staff ROM: Right Upper Extremity: Shoulder Flexion WFL. Shoulder abduction WFL. Elbow flexion WFL. Wrist flexion WFL. Functional opening and closing of hand WFL. Left Upper Extremity: Shoulder Flexion WFL. Shoulder abduction WFL. Elbow flexion WFL. Wrist flexion WFL. Functional opening and closing of hand WFL. Right Lower Extremity: Hip flexion WFL. Hip abduction WFL. Knee flexion WFL. Ankle dorsiflexion WFL. Ankle plantarflexion WFL. Left Lower Extremity: Hip flexion WFL. Hip abduction WFL. Knee flexion WFL. Ankle dorsiflexion WFL. Ankle plantarflexion WFL. Strength: Right Upper Extremity: Shoulder flexors 5/5. Shoulder abductors 5/5. Elbow flexors 5/5. Elbow extensors 5/5. Business Associate strong. Left Upper Extremity: Shoulder flexors 5/5. Shoulder abductors 5/5. Elbow flexors 5/5. Elbow extensors 5/5. Business Associate strong. Right Lower Extremity: Hip flexors 4/5. Hip abductors 4/5. Knee flexors 5/5. Knee extensors 4/5. Ankle dorsiflexors 4/5. Ankle plantarflexors 4/5. Left Lower Extremity: Hip flexors 4/5. Hip abductors 4/5. Knee flexors 5/5. Knee extensors 4/5. Ankle dorsiflexors 4/5. Ankle plantarflexors 4/5. Bed Mobility/Transfers: Independent Gait: Tolerated 350 feet without assistive device. No LOB. No path deviation. At baseline ambulation level. Stairs: Up and down 3 x 4-inch and 2 x 6 inch steps without holding onto rails independently. Balance: Static Sitting: Normal Dynamic Sitting: Normal Static Standing: Fair Dynamic Standing: Fair Special Tests: Mobility Limitations Standardized Measure [facility] 6 clicks Basic Mobility Inpatient Short Form: Raw Score: 24 CMS Score: 0% deficit Informed Consent/Education: Patient was instructed in purpose of PT consult. Assessment: Patient is at baseline mobility level without need for device. [place] is [place] 41379 moderate complexity based on the following: History: 54-year-old male with past medical history as indicated above Examination: As above Presentation: As above Decision Makin moderate complexity Goals: N/A. PT evaluation only. Plan of Care/Treatment Plan: N/A. PT evaluation only. DISCHARGE RECOMMENDATIONS: No skilled PT services needed. No equipment needs. Home when medically cleared. TREATMENT CODE/TIME: 79941 x 24 minutes for 1 unit (10:59-11:12 and 11:50-12:01). Thank you for the opportunity to participate in the care of this patient. Alina Mao PT, DPT, CLT [facility] [place], [place]
--- NOTE | 2025-01-06 13:38 | DSE_ITS ---
Date of service: 01/06/25 Time of Service: 13:38 DS: Diagnosis Discharge Diagnosis (1) CVA (cerebral vascular accident): Status: Chronic (2) Hypothyroidism: (3) HTN (hypertension): Status: Chronic Discharge Plan Disposition Patient Disposition: Home Condition: Good Discharge Details Reason For Visit: CVA/TIA Admit Date/Time: 01/05/25 16:57 Admit Provider: Brendan Griffith Attending Provider: Brendan Griffith Primary Care Provider: Sb Jones Hospital Course Hospital Course: Patient initially presented with signs and symptoms concerning for CVA/TIA with word finding difficulty and right-sided weakness associated with a headache without hypertension. Head CT was negative as well as MRI MRA head and neck. Given that patient's symptoms resolved, it is likely that this was secondary to change in patient's migraine symptoms now resulting in complex migraines. At this time it is determined that the patient is stable for discharge home but he will have close follow-up appointment with neurology. Home Meds and New Rx's Prescriptions: Continued vitamin B complex [B Complex 1] Tablet 1 tab PO DAILY magnesium 250 mg tablet 1,000 mg PO DAILY albuterol sulfate [Ventolin HFA] 90 mcg/actuation HFA aerosol inhaler 2 puff IH Q6H PRN (Reason: shortness of breath or wheezing) Qty: 8.5 0RF tamsulosin 0.4 mg capsule 0.4 mg PO DAILY Qty: 90 3RF psyllium husk [Fiber (psyllium husk)] 0.52 gram capsule 1.04 g PO DAILY cholecalciferol (vitamin D3) [Vitamin D3] 1,000 UNIT capsule 2 cap PO DAILY acetaminophen [Tylenol] 325 mg Tablet 650 mg PO ONCE PRN ibuprofen 200 mg Tablet 200 mg PO Q6H PRN THC 5 mg .Route HS PRN desvenlafaxine succinate 50 mg tablet extended release 24 hr 50 mg PO DAILY desvenlafaxine succinate 100 mg tablet extended release 24 hr 100 mg PO DAILY Patient Comments: Take 1 tablet once a day levothyroxine 75 mcg tablet 75 mcg PO DAILY aripiprazole 2 mg tablet 2 mg PO DAILY lisinopril 10 mg tablet 10 mg PO DAILY Patient Comments: TAKE ONE TABLET BY MOUTH EVERY DAY Discharge Instructions Activity:: Activity as Tolerated Equipment/Supplies:: No Equipment Needed Diet:: As Tolerated Discharge Orders Discharge Orders: Discharge Order (Routine); Ordered 01/06/25 Ordered By: Brendan Griffith DS: Summary Time Spent with Patient providing and/or coordinating discharge services: Greater than 30 minutes Status at Discharge Functional status at discharge: independent ambulation Overall status at discharge: patient is back to baseline Mental Status: mental status grossly normal Speech and Movement: speech and movement normal Mood: congruent mood Affect: normal affect Quality:SDOH Health Related Social Needs: Health related social needs risk of homeless Exam Narrative Exam Narrative: Well-appearing gentleman laying in bed in mild distress due to headache though it is improving, ANO x 4, heart regular rhythm, with good auscultation bilaterally, abdomen soft, nontender, nondistended, normal cranial nerves II through XII, normal sensation and strength in bilateral upper and lower extremities Psych Mental Status: mental status grossly normal Speech and Movement: speech and movement normal Mood: congruent mood Affect: normal affect DS: Data Vitals/I&O Vitals and I&O: Vital Signs Temperature 97.0 F L 01/06/25 07:53 Temperature Source Temporal Artery Scan 01/06/25 07:53 Pulse 62 01/06/25 07:53 Pulse Rhythm Regular 01/05/25 17:46 Pulse 67 01/05/25 16:46 Respiratory Rate 18 01/06/25 07:53 Respiratory Effort Normal, Non-Labored 01/05/25 17:46 Respiratory Depth Normal 01/05/25 17:46 Respiratory Pattern Normal 01/05/25 17:46 Blood Pressure 130/88 01/06/25 07:53 Blood Pressure Mean 102 01/06/25 07:53 Pulse Oximetry 97 01/06/25 07:53 Oxygen Delivery Method Room Air 01/06/25 07:53 Oxygen Flow Rate 0 01/06/25 07:53 Pain Level 0 01/05/25 23:10 Comment nurse requested to let pt sleep for 0300 vitals, will get when pt wakes up 01/06/25 03:44 Intake & Output 01/05/25 01/06/25 01/06/25 17:59 05:59 17:59 Weight 258 lb 6.108 oz Other: Urine Color Pale Urine Appearance Clear Data Completed and Pending Labs on day of discharge: Labs from last 24 hours 01/06/25 01/05/25 01/05/25 05:58 18:09 16:00 WBC 7.12 RBC 4.99 Hgb 14.8 Hct 43.0 MCV 86 MCH 29.7 MCHC 34.4 RDW 13.1 Plt Count 230 MPV 9.0 Immature Gran % Neutrophils % Lymphocytes % Monocytes % Eosinophils % Basophils % Nucleated RBC % Absolute Neutrophils Absolute Lymphocytes Absolute Monocytes Absolute Eosinophils Absolute Basophils PT INR APTT Sodium 141 Potassium 4.2 Chloride 106 Carbon Dioxide 24.4 Anion Gap 10.6 BUN 14 Creatinine 0.9 Est GFR (CKD-EPI 2020) 102.12 Glucose 106 Calcium 8.6 Magnesium 1.9 Total Bilirubin AST ALT Alkaline Phosphatase Troponin I Cancelled 4 Total Protein Albumin Urine Color Urine Clarity Urine pH Ur Specific [place] Urine Protein Urine Ketones Urine Blood Urine Nitrite Urine Bilirubin Urine Urobilinogen Ur Leukocyte Esterase Urine RBC Urine WBC Ur Epithelial Cells Urine Crystals Urine Bacteria Urine Casts Urine Mucus Ur Culture Indicated? Urine Glucose 01/05/25 01/05/25 15:30 15:07 WBC 7.13 RBC 5.07 Hgb 14.9 Hct 44.1 MCV 87 MCH 29.4 MCHC 33.8 RDW 13.1 Plt Count 238 MPV 9.0 Immature Gran % 0.3 Neutrophils % 47.3 Lymphocytes % 40.1 Monocytes % 10.9 Eosinophils % 0.8 Basophils % 0.6 Nucleated RBC % 0.0 Absolute Neutrophils 3.37 Absolute Lymphocytes 2.86 Absolute Monocytes 0.78 Absolute Eosinophils 0.06 Absolute Basophils 0.04 PT 9.9 INR 1.0 APTT 25.3 Sodium 140 Potassium 4.2 Chloride 104 Carbon Dioxide 26.7 Anion Gap 9.3 BUN 16 Creatinine 0.8 Est GFR (CKD-EPI 2020) 105.82 Glucose 95 Calcium 9.2 Magnesium Total Bilirubin 0.3 AST 32 ALT 81 H Alkaline Phosphatase 93 Troponin I Total Protein 7.6 Albumin 3.7 Urine Color Yellow Urine Clarity Clear Urine pH 6.0 Ur Specific [place] 1.010 Urine Protein Negative Urine Ketones Negative Urine Blood Small H Urine Nitrite Negative Urine Bilirubin Negative Urine Urobilinogen 0.2 Ur Leukocyte Esterase Negative Urine RBC 0-2 Urine WBC Negative Ur Epithelial Cells Negative Urine Crystals Negative Urine Bacteria Rare Urine Casts Negative Urine Mucus Negative Ur Culture Indicated? No Urine Glucose Negative PFSH All Active Problems (Updated 01/05/25 @ 17:45 by SHALA AMADO) Headache (Acute) Numbness (Acute) Weakness (Acute) CVA (cerebral vascular accident) (Chronic) HTN (hypertension) (Chronic) Abdominal pain, RUQ (Acute) Diverticulitis (Chronic) Hearing loss, left (Acute) TBI (traumatic brain injury) (Acute) Pt. states he did not have a TBI, but a was concussion Allergies (Acute) Right-sided sensorineural hearing loss (Acute) Low back pain (Acute) Urolithiasis (Chronic) History of narcotic addiction (Acute) does not want narcotics offered to him at any time IBS (irritable bowel syndrome) (Chronic) Peripheral polyneuropathy (Acute) Depression (Chronic 09/03/17) Medical History (Updated 01/05/25 @ 17:45 by SHALA AMADO) Hypothyroidism Diverticulosis of colon without diverticulitis per colonoscopy 09/14/09-Dr. Mcdermott Renal calculi Fracture of lumbar spine Gastroesophageal reflux disease (06/29/13) Migraines PTSD (post-traumatic stress disorder) (09/03/17) Surgical History (Updated 10/19/24 @ 11:25 by Alba Butler CMA) Hx of umbilical hernia repair (~10/2024) S/P laparoscopic cholecystectomy (~10/2024) History of shoulder surgery History of right knee surgery Family History Mother No problems noted. Father Diabetes Melanoma Heart disease Hyperlipidemia Sister Multiple sclerosis Substance abuse Brother Asthma Alcohol abuse Substance abuse Maternal Grandfather , 70 Alcohol abuse Cancer Paternal Grandfather , in his 50s Tuberculosis Maternal Grandmother , 72 Alcohol abuse Asthma Cancer Paternal Grandmother Cancer Son Asthma Daughter Depression Anxiety Social History Smoking/Tobacco Use Status: Never Tobacco: How many years used: 10 Second Hand Exposure: Yes Smoking risk assessment performed?: Yes Alcohol Intake: former Drug use: Current Sobriety Substance use type: former substance user Details: 26 years clean per pt Caregiver/Support person: No Household members: spouse and children Housing: house Communication Needs: None Do you need help understanding health information?: Never Pets and animals: Yes Pets and animals: dog(s) Sexually active: Yes Do you think of yourself as: straight/heterosexual Current gender identity: male What is your relationship status?: How often do you talk on the phone with friends or family?: once per week How often do you get together with friends or relatives?: once per week How often do you attend holiness or anabaptist services?: decline to answer Do you belong to any clubs or organized social groups?: no Panel score (0-1 are the most socially isolated patients): 1 What type of physical activity do you participate in: walking and other Details: PiYo Duration: < 15 minutes/day Frequency: 1-2 times per week Ilda/Episcopalian: None Special ilda needs: No Seatbelt use: always Helmet use: Yes Helmet use: sometimes Drive intox or ride w/intox patient transportation 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 Time Spent with Patient Time Spent with Patient: <45 minutes Time was spent: preparing to see the patient(eg.review tests), obtaining and/or reviewing separately otained hiistory, ordering medications,tests, procedures, referring, communicating with other health director of managed care, indepentently interpreting results, counseling the patient and care coordination
--- NOTE | 2025-01-06 16:03 | PDOC.CMDIS ---
Date of service: 01/06/25 Time of Service: 16:03 LACE Index Scoring Tool Questions: Length of Stay (in days): 1 Was the patient admitted via the E.D.?: Yes Comorbidities: Cerebrovascular Disease E.D. Visits: 3 Answers: Total Score: 8 Risk of Readmission: Low Risk Care Management Discharge Plan Reason for Hospitalization: TIA Discharge Plan: toño will be discharged home with no new services. He will follow up with his PCP and plan of care and transport with family. Patient/Family Education Needs: Review of discharge instructions, discuss Ask Me Three SDOH Health Related Social Needs: Health related social needs risk of homeless
== END 2025-01-06 14:35 | disposition home or self-care (01) ==
LOC: ER 17:09 → MS 17:44
PROVIDERS: Admitting Provider Family Medicine; Emergency Provider Student in an Organized Health Care Education/Training Program; PCP Physician Assistant; Responsible Provider Family Medicine; Visit Provider Family Medicine
DX: G43.809 Other migraine, not intractable, without status migrainosus (principal); I10 Essential (primary) hypertension; R00.1 Bradycardia, unspecified; G81.91 Hemiplegia, unspecified affecting right dominant side; R47.1 Dysarthria and anarthria; R20.2 Paresthesia of skin; E03.9 Hypothyroidism, unspecified; R53.1 Weakness; M54.50 Low back pain, unspecified; F11.21 Opioid dependence, in remission; K58.9 Irritable bowel syndrome, unspecified; G62.9 Polyneuropathy, unspecified; F32.A Depression, unspecified; F43.10 Post-traumatic stress disorder, unspecified; Z79.899 Other long term (current) drug therapy
CPT/HCPCS: 00123; 36415; 36416; 70496; 70498; 70544; 80048; 80053; 82962; 85027; 93005; 96361; 96372; 96374; 96375; 97161; 99291; J1650; 70551; 81003; 81015; 83735; 84484; 85025; 85610; 85730; 93010; 99223; 99239; G0378; J1200; J2765; J3490

== ENCOUNTER 2025-03-23 10:17 | Outpatient (REF) | payer BC, SELFPAY ==
[2025-03-23 15:34] LABS: HCT 43.0 % (40.0-50.0); HGB 14.6 g/dL (13.5-17.5); MCH 30.0 pg (27.0-33.0); MCHC 34.0 % (32.0-36.0); MCV 88 fL (80-95); MPV 9.9 fL (8.0-11.0); Platelet Count 273 10^3/uL (130-400); RBC 4.87 10^6/uL (4.36-5.78); RDW 12.9 % (11.8-14.1); RDW-SD 42.1 fL; WBC 7.17 10^3/uL (4.4-10.8)
[2025-03-23 16:00] LABS: TSH 3.10 uIU/mL (0.36-3.74)
== END 2025-03-23 10:18 | disposition home or self-care (01) ==
LOC: NCHCN 10:17
PROVIDERS: PCP Physician Assistant; Visit Provider Physician Assistant
DX: E03.9 Hypothyroidism, unspecified (principal)
CPT/HCPCS: 85027; 84439; 84443

== ENCOUNTER 2025-05-17 21:05 | Outpatient (REF) | payer BC, SELFPAY ==
[2025-05-17 22:02] LABS: HCT 41.2 % (40.0-50.0); HGB 13.4 g/dL (13.5-17.5); MCH 29.5 pg (27.0-33.0); MCHC 32.5 % (32.0-36.0); MCV 91 fL (80-95); MPV 10.1 fL (8.0-11.0); Platelet Count 257 10^3/uL (130-400); RBC 4.55 10^6/uL (4.36-5.78); RDW 12.3 % (11.8-14.1); RDW-SD 40.8 fL; WBC 8.21 10^3/uL (4.4-10.8)
[2025-05-17 22:15] LABS: TSH 1.92 uIU/mL (0.55-4.78)
== END 2025-05-17 21:06 | disposition home or self-care (01) ==
LOC: NCHCN 21:05
PROVIDERS: PCP Physician Assistant; Visit Provider Physician Assistant
DX: R63.4 Abnormal weight loss (principal)
CPT/HCPCS: 85027; 84439; 84443